=== PATIENT | female | born 1930 | race Caucasian/White ===

== ENCOUNTER 2017-08-31 12:39 | Inpatient (IN) | payer OTHER, BC ==
--- NOTE | 2017-08-31 13:09 | PDOC ---
Attending Attestation - Resident Resident Name: Benny Merino - ED Attending Attestation I have performed the following: I have examined & evaluated the patient, The case was reviewed & discussed with the resident, I agree w/resident's findings & plan, Exceptions are as noted - HPI HPI: 08/31/17 13:09 86y F hx ansity, htn, presents s/[ fall - the patient had a witnessed fall last night - was going to the bathroom, followed by her aide, and fell entering the bathroom, she was unable to get up on he rown and her aide helped her back into bed. [facility] pain. she did bupm her head on the ground when she fell but there was no LOC, vision changes, numbness/ tinglingweakness, , cp, sob, abd pain, back pain, neck pain, dysuria, diahrrea. pt not on any a/c. on exam pt has a shortened externally rotated RLE, +tender mass that is nonecchymotic over the R proximal femur. distal sensation intact, distal pulses intact, distal motor exam intact and symmetric cardiac: rrr pulm: cta head: no focal tenderness, +contusion tamia R eye and R chin. suspect hip fx will obtain ct head, facial bones xray of hip analgesia - Physicial Exam PE: 09/01/17 08:24 see above - Medical Decision Making 08/31/17 14:24 intertroch fx of R hip ct head/spine/facial bones negative for fx will admit for further management ortho consulted Heart Score/ECG Review - ECG Impressions Comment:: 08/31/17 14:01 Twelve-lead EKG was performed and reviewed by me. There is normal sinus rhythm with a normal rate. rate of 64 The axis is normal. The intervals are normal. There is normal R wave progression There are no ST or T wave abnormalities. Impression: Normal twelve-lead EKG
[2017-08-31] MEDS ORDERED: morphine CARPU-JECT 4 MG/1 ML DISP.SYRIN IVPUSH ONE ×3 (13:15→18:22)
[2017-08-31] MEDS ORDERED: MORPHINE SULFATE 10 MG/1 ML *VIAL ONE ×3 (13:17→18:25)
[2017-08-31 13:41] LABS: BASO % 0.9 % (0-2.0); EOS % 0.2 % (0-4.5); HEMATOCRIT 38.1 % (32.4-45.2); HEMOGLOBIN 12.2 GM/dL (10.7-15.3); LYMPH % 16.4 % (8-40); MCH 29.4 pg (25.7-33.7); MEAN CELL VOLUME 91.8 fl (80-96); MEAN PLT VOLUME 8.8 fl (7.5-11.1); MONO % 8.7 % (3.8-10.2); NEUT % 73.8 % (42.8-82.8); PLATELET COUNT 181 K/MM3 (134-434); RBC 4.15 M/mm3 (3.60-5.2); RDW 14.5 % (11.6-15.6); WHITE BLOOD COUNT 10.8 K/mm3 (4.0-10.0)
[2017-08-31 13:57] LABS: INR 1.09 (0.82-1.09); PROTHROMBIN TIME (PATIENT) 12.3 SEC (9.98-11.88)
--- NOTE | 2017-08-31 14:09 | PDOC ---
History of Present Illness - General Chief Complaint: Injury Stated Complaint: FALL Time Seen by Provider: 08/31/17 13:01 History Source: Patient, Family Exam Limitations: No Limitations - History of Present Illness Initial Comments: 08/31/17 14:04 The patient is an 86F with a PMH of depression and HTN who presents to the ER after sustaining a fall. The patient is with her daughter and aide who provide some of the history. The aide says the patient was going to the bathroom with her walker and turned quickly and tripped over the wedge in front of the bathroom and fell on her R side. The patient denies any CP, SOB, lightheadedness , palpitations, nausea, numbness, tingling, weakness, or changes in vision before, during, or after this episode. 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 - Surgical History Appendectomy: Yes - Immunization History Immunization Up to Date: Yes - Suicide/Smoking/Psychosocial Hx Smoking Status: No Smoking History: Never smoked Have you smoked in the past 12 months: No Number of Cigarettes Smoked Daily: 0 Information on smoking cessation initiated: No Hx Alcohol Use: No Drug/Substance Use Hx: No Substance Use Type: None Review of Systems - Review of Systems Able to Perform ROS?: Yes Comments:: 08/31/17 14:08 GENERAL/CONSTITUTIONAL: No fever or chills. No weakness. HEAD, EYES, EARS, NOSE AND THROAT: No change in vision. No ear pain or discharge. No sore throat. CARDIOVASCULAR: No chest pain, palpitations, or lightheadedness. RESPIRATORY: No cough, wheezing, shortness of breath, or hemoptysis. GASTROINTESTINAL: No nausea, vomiting, diarrhea, constipation, or abdominal pain. GENITOURINARY: No dysuria, frequency, hematuria, or change in urination. MUSCULOSKELETAL: Positive for fall, R thigh pain, and pain in facial bones. SKIN: No rash or lesions. NEUROLOGIC: No headache, numbness, tingling, weakness, loss of consciousness, or change in strength/sensation. ENDOCRINE: No increased thirst. No abnormal weight change. HEMATOLOGIC/LYMPHATIC: No anemia, easy bleeding, or history of blood clots. ALLERGIC/IMMUNOLOGIC: No hives or skin allergy. Is the patient limited Divehi proficient: No *Physical Exam - Vital Signs Last Vital Signs Temp Pulse Resp BP Pulse Ox 97.3 F L 67 18 154/50 94 L 08/31/17 12:51 08/31/17 12:51 08/31/17 12:51 08/31/17 12:51 08/31/17 12:51 - Physical Exam Comments: 08/31/17 14:10 GENERAL: Well developed, well nourished. Awake and alert. No acute distress. HEENT: Normocephalic, atraumatic. Bruising present over R periorbital area and R chin. Tender to palpation over R mental area. Hearing grossly normal. Moist mucous membranes. PERRLA, EOMI. No conjunctival pallor. NECK: Supple. Full ROM. No JVD. CARDIOVASCULAR: Regular rate and rhythm. Systolic murmur 3/6. PULMONARY: No evidence of respiratory distress. Lungs clear to auscultation bilaterally. No wheezing, rales or rhonchi. ABDOMINAL: Soft. Non-tender. Non-distended. No rebound or guarding. MUSCULOSKELETAL: Gross deformity of R thigh. EXTREMITIES: No cyanosis. No clubbing. No edema. No calf tenderness. SKIN: Warm and dry. Normal capillary refill. No rashes. No jaundice. NEUROLOGICAL: Alert, awake, appropriate. Cranial nerves 2-12 intact. Normal speech. Gait is normal without ataxia. PSYCHIATRIC: Cooperative. Good eye contact. Appropriate mood and affect. Heart Score/ECG Review #1 ECG reviewed & interpreted by me at: 14:11 General ECG Interpretation: Sinus Rhythm, Normal Rate, Normal Intervals, No acute ischemic changes Compared to previous ECG there are: No significant change 08/31/17 14:12 NSR Rate 64 OH 182 QRS 90 QTc 445 ED Treatment Course - LABORATORY CBC & Chemistry Diagram: 08/31/17 13:26 08/31/17 13:26 - ADDITIONAL ORDERS Additional order review: Laboratory Results 08/31/17 08/31/17 13:26 13:26 PT with INR 12.30 H INR 1.09 PTT (Actin FS) 28.4 08/31/17 13:26 RBC 4.15 MCV 91.8 MCHC 32.0 RDW 14.5 MPV 8.8 Neutrophils % 73.8 Lymphocytes % 16.4 D Monocytes % 8.7 Eosinophils % 0.2 Basophils % 0.9 - RADIOLOGY Radiology Studies Ordered: Category Date Time Status FACIAL BONES CT W/O CONTRAST [CT] Stat CT Scan 08/31/17 13:[address] WITHOUT CONTRAST [CT] Stat CT Scan 08/31/17 13:13 Ordered CHEST PA & LAT [RAD] Stat Radiology 08/31/17 13:15 Ordered FEMUR-RIGHT [RAD] Stat Radiology 08/31/17 13:12 Ordered HIP & PELVIS-RIGHT [RAD] Stat Radiology 08/31/17 13:12 Ordered - Medications Given in the ED: ED Medications Discontinued Medications Generic Name Dose Route Start Last Admin Trade Name Freq PRN Reason Stop Dose Admin Morphine Sulfate 2 mg 08/31/17 13:15 08/31/17 13:37 Morphine Injection - IVPUSH 08/31/17 13:16 2 mg ONCE ONE Administration Medical Decision Making - Medical Decision Making 08/31/17 14:12 The patient is an 86F with a PMH of valvular issues, HTN, and depression who presents after a mechanical fall. I have ordered the appropriate imaging but also labs to r/o organic causes of a fall. A review of the patient's medications reveals she takes trazodone and benzos which can cause the patient to be drowsy and fall. Pending labs and imaging. 08/31/17 15:32 CT Head: Interval right parietal craniotomy for evacuation of previously visualized moderate size right subdural collection/hematoma. 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 Otherwise, no acute intracranial pathology is identified CT Facial bones: IMPRESSION: No gross fracture is identified. Both orbits appear intact. Prelim reading of femur XR indicates intratrochanteric fracture of the R femur. Will call ortho. Cervical CT: IMPRESSION: 1. No evidence of acute fracture or traumatic subluxation in the cervical spine. 2. Mild anterior wedging compression fracture of the T3 vertebral body with no discrete fracture lines is of indeterminant chronicity, new since 05/07/[address] Please correlate clinically. If warranted, MRI or nuclear medicine bone scintigraphy may be obtained. 3. Cervical spondylosis as described above. 08/31/17 16:43 Dr. Wolf accepts admission for med/surg bed. 08/31/17 18:23 The patient requires more pain medication. Diastolic in 50's. Will give 4 morphine with IVF NS bolus. *DC/Admit/Observation/Transfer Diagnosis at time of Disposition: Fracture - Discharge Dispostion Condition at time of disposition: Stable Admit: Yes - Referrals - Patient Instructions - Post Discharge Activity
[2017-08-31 14:15] LABS: ALBUMIN 3.8 g/dl (3.4-5.0); ANION GAP 8 (8-16); BLOOD UREA NITROGEN 19 mg/dL (7-18); CALCIUM 8.8 mg/dL (8.5-10.1); CHLORIDE 105 mmol/L (98-107); CO2 29 mmol/L (21-32); CREATININE 0.6 mg/dL (0.55-1.02); GLUCOSE,RANDOM 96 mg/dL (74-106); POTASSIUM 4.1 mmol/L (3.5-5.1); SGOT/AST 14 U/L (15-37); SGPT/ALT 20 U/L (12-78); SODIUM 142 mmol/L (136-145); TOT PROT 6.3 g/dl (6.4-8.2)
[2017-08-31 14:17] LABS: ALK PHOS 61 U/L (45-117)
--- NOTE | 2017-08-31 17:52 | PN ---
Progress Note (short form) - Note Progress Note: consult received. films reviewed. plan on IM nail placement when medically optimized. will see patient tomorrow and review.
[2017-08-31] MEDS ORDERED: SODIUM CHLORIDE 0.9% 1000 ML INFUS.BAG IV ONE (18:22)
[2017-08-31 18:43] LABS: URINE APPEARANCE CLEAR; URINE BILIRUBIN NEGATIVE (NEGATIVE); URINE BLOOD NEGATIVE (NEGATIVE); URINE COLOR YELLOW; URINE GLUCOSE (UA) NEGATIVE (NEGATIVE); URINE KETONE NEGATIVE (NEGATIVE); URINE LEUK ESTERASE NEGATIVE (NEGATIVE); URINE NITRITE NEGATIVE (NEGATIVE); URINE PROTEIN NEGATIVE (NEGATIVE); URINE UROBILINOGEN NEGATIVE mg/dL (0.2-1.0)
--- NOTE | 2017-08-31 19:22 | HP ---
Admitting History and Physical - Primary Care Physician PCP: Zuri Wolf - Admission History of Present Illness: 86F with a PMH of depression and HTN who presents to the ER after sustaining a fall. The patient is with her daughter and aide who provide some of the history. The aide says the patient was going to the bathroom with her walker and turned quickly and tripped over the wedge in front of the bathroom and fell on her R side. The patient denies any CP, SOB, lightheadedness, palpitations, nausea, numbness, tingling, weakness, or changes in vision before, during, or after this episode. - Past Medical History Cardiovascular: Yes: HTN - Smoking History Smoking history: Never smoked Have you smoked in the past 12 months: No Aproximately how many cigarettes per day: 0 - Alcohol/Substance Use Hx Alcohol Use: No Home Medications - Allergies Allergies/Adverse Reactions: Allergies Allergy/AdvReac Type Severity Reaction Status Date / Time No Known Allergies Allergy Verified 08/31/17 12:57 - Home Medications Home Medications: Ambulatory Orders Bupropion HCl [Wellbutrin -] 100 mg PO DAILY 08/31/17 Escitalopram Oxalate [Lexapro -] 5 mg PO DAILY 08/31/17 Lorazepam 1 mg PO TID 08/31/17 Metoprolol Succinate [Toprol Xl -] 100 mg PO DAILY 08/31/17 hydrALAZINE HCL [Apresoline -] 25 mg PO TID 08/31/17 traZODone HCL [Desyrel -] 50 mg PO HS 08/31/17 Physical Examination Vital Signs: Vital Signs Temperature 97.3 F L 08/31/17 12:51 Pulse Rate 68 08/31/17 19:16 Respiratory Rate 16 08/31/17 19:16 Blood Pressure 123/53 08/31/17 19:16 O2 Sat by Pulse Oximetry (%) 98 08/31/17 19:16 HENT: Yes: Atraumatic Neck: Yes: Supple Cardiovascular: Yes: Regular Rate and Rhythm Respiratory: Yes: CTA Bilaterally Gastrointestinal: Yes: Normal Bowel Sounds Extremities: Yes: Other (R julianna at the thigh level swollen and warm and tender) Neurological: Yes: Alert, Oriented Labs: CBC, BMP 08/31/17 13:26 08/31/17 13:26 Problem List - Problems (1) HTN (hypertension) Assessment/Plan: stable on meds will ge cardiology consult Code(s): I10 - ESSENTIAL (PRIMARY) HYPERTENSION Qualifiers: Hypertension type: essential hypertension Qualified Code(s): I10 - Essential (primary) hypertension (2) Fracture Assessment/Plan: ortho consult prn pain meds dvt ppx Code(s): T14.8XXA - OTHER INJURY OF UNSPECIFIED BODY REGION, INITIAL ENCOUNTER Assessment/Plan Laboratory Tests 08/31/17 08/31/17 08/31/17 13:26 13:26 13:26 WBC 10.8 H RBC 4.15 Hgb 12.2 D Hct 38.1 D MCV 91.8 MCH 29.4 MCHC 32.0 RDW 14.5 Plt Count 181 MPV 8.8 Neutrophils % 73.8 Lymphocytes % 16.4 D Monocytes % 8.7 Eosinophils % 0.2 Basophils % 0.9 PT with INR 12.30 H INR 1.09 PTT (Actin FS) Sodium 142 Potassium 4.1 Chloride 105 Carbon Dioxide 29 Anion Gap 8 BUN 19 H Creatinine 0.6 Creat Clearance w eGFR > 60 Random Glucose 96 Calcium 8.8 Total Bilirubin 1.0 D AST 14 L ALT 20 Alkaline Phosphatase 61 Creatine Kinase 66 Troponin I < 0.02 Total Protein 6.3 L Albumin 3.8 Urine Color Urine Appearance Urine pH Ur Specific [place] Urine Protein Urine Glucose (UA) Urine Ketones Urine Blood Urine Nitrite Urine Bilirubin Urine Urobilinogen Ur Leukocyte Esterase Alcohol, Quantitative Blood Type Antibody Screen 08/31/17 08/31/17 08/31/17 13:26 13:26 13:26 WBC RBC Hgb Hct MCV MCH MCHC RDW Plt Count MPV Neutrophils % Lymphocytes % Monocytes % Eosinophils % Basophils % PT with INR INR PTT (Actin FS) 28.4 Sodium Potassium Chloride Carbon Dioxide Anion Gap BUN Creatinine Creat Clearance w eGFR Random Glucose Calcium Total Bilirubin AST ALT Alkaline Phosphatase Creatine Kinase Troponin I Total Protein Albumin Urine Color Urine Appearance Urine pH Ur Specific [place] Urine Protein Urine Glucose (UA) Urine Ketones Urine Blood Urine Nitrite Urine Bilirubin Urine Urobilinogen Ur Leukocyte Esterase Alcohol, Quantitative < 5.0 Blood Type B POSITIVE Antibody Screen Negative 08/31/17 08/31/17 17:05 18:28 WBC RBC Hgb Hct MCV MCH MCHC RDW Plt Count MPV Neutrophils % Lymphocytes % Monocytes % Eosinophils % Basophils % PT with INR INR PTT (Actin FS) Sodium Potassium Chloride Carbon Dioxide Anion Gap BUN Creatinine Creat Clearance w eGFR Random Glucose Calcium Total Bilirubin AST ALT Alkaline Phosphatase Creatine Kinase Troponin I Total Protein Albumin Urine Color Yellow Urine Appearance Clear Urine pH 6.0 Ur Specific [place] 1.025 Urine Protein Negative Urine Glucose (UA) Negative Urine Ketones Negative Urine Blood Negative Urine Nitrite Negative Urine Bilirubin Negative Urine Urobilinogen Negative Ur Leukocyte Esterase Negative Alcohol, Quantitative Blood Type B POSITIVE Antibody Screen
[2017-08-31] MEDS: HEPARIN NA (PORCINE) 5,000 UNITS/ML 1ML VIAL SQ SCH (22:04)
[2017-08-31] MEDS: MORPHINE SULFATE 10 MG/1 ML *VIAL IVPUSH PRN (22:05)
[2017-08-31 22:34] VITALS: BMI 15.7
[2017-09-01] MEDS: MORPHINE SULFATE 10 MG/1 ML *VIAL IVPUSH PRN ×3 (03:41→19:17)
--- NOTE | 2017-09-01 09:11 | CONSULT ---
Consult Consult Specialty:: orthopedics Reason for Consultation:: Right hip - History of Present Illness History of Present Illness: 86y/o female c/o right hip pain since yesterday. She fell and landed on her right side and has been unable to walk since. Was transported to ER by EMS. Pain is worse with motion of the hip and better with rest. Denies any numbness or tingling. No other associated, aggravating or relieving factors. - History Source History Provided By: Patient, Medical Record - Past Medical History Cardio/Vascular: Yes: HTN - Alcohol/Substance Use Hx Alcohol Use: No - Smoking History Smoking history: Never smoked Have you smoked in the past 12 months: No Aproximately how many cigarettes per day: 0 Home Medications - Allergies Allergies/Adverse Reactions: Allergies Allergy/AdvReac Type Severity Reaction Status Date / Time No Known Allergies Allergy Verified 08/31/17 12:57 - Home Medications Home Medications: Ambulatory Orders Bupropion HCl [Wellbutrin -] 100 mg PO DAILY 08/31/17 Escitalopram Oxalate [Lexapro -] 5 mg PO DAILY 08/31/17 Hydralazine HCl [Apresoline -] 25 mg PO TID 08/31/17 Lorazepam 1 mg PO TID 08/31/17 Metoprolol Succinate [Toprol Xl -] 100 mg PO DAILY 08/31/17 Trazodone HCl [Desyrel -] 50 mg PO HS 08/31/17 Review of Systems - Review of Systems Constitutional: reports: No Symptoms Eyes: reports: No Symptoms HENT: reports: No Symptoms Neck: reports: No Symptoms Cardiovascular: reports: No Symptoms Respiratory: reports: No Symptoms Gastrointestinal: reports: No Symptoms Genitourinary: reports: No Symptoms Breasts: reports: No Symptoms Reported Musculoskeletal: reports: Extremity Pain Integumentary: reports: No Symptoms Neurological: reports: No Symptoms Endocrine: reports: No Symptoms Hematology/Lymphatic: reports: No Symptoms Psychiatric: reports: No Symptoms Physical Exam Vital Signs: Vital Signs Temperature 99.4 F 09/01/17 06:00 Pulse Rate 70 09/01/17 06:00 Respiratory Rate 20 09/01/17 06:00 Blood Pressure 129/60 09/01/17 06:00 O2 Sat by Pulse Oximetry (%) 98 08/31/17 22:39 Constitutional: Yes: Well Nourished, No Distress, Calm HENT: Yes: Normocephalic Musculoskeletal: Yes: Other (Right LE: Mild edema of the RLE. No erythema or ecchymosis. Pain with motion of the hip. Smooth motion of the knee and ankle. Compartments soft. Calf nontender. Negative lizzette's sign. NVID.) Labs: CBC, BMP 08/31/17 13:26 08/31/17 13:26 Imaging - Results X-ray: Report Reviewed, Image Reviewed (Right intertrochanteric fracture) Assessment/Plan #1 Right hip IT fracture -Discussed today's findings and treatment options with the patient. Together we decided to proceed with ORIF. Discussed the procedure with the patient and answered all questions. Will likely proceed with ORIF tonight or tomorrow. -NPO after breakfast today 09/01/17 -SCDs
[2017-09-01] MEDS: HEPARIN NA (PORCINE) 5,000 UNITS/ML 1ML VIAL SQ SCH ×2 (10:42→21:52)
--- NOTE | 2017-09-01 12:28 | CON.CARD ---
Consult Consult Specialty:: Cardiology Referred by:: Dr. Wolf Reason for Consultation:: Cardiac evaluation and for cardiac clearance - History of Present Illness Chief Complaint: Post fall resulting in right hip fracture History of Present Illness: Patient is an 86 year old female of [place] descent with underlying history of depression and hypertension who presents after a fall in the bathroom resulting in right femoral fracture. She is currently awaiting surgery and cardiac clearance was requested. She denies chest pain, shortness of breath or palpitations. She denies paroxysmal nocturnal dyspnea or orthopnea. She denies fever or chills. She denies nausea, vomiting, diarrhea or abdominal pain. She denies headache or lightheadedness. Denies any prior syncope. - History Source History Provided By: Patient, Medical Record Limitations to Obtaining History: No Limitations - Past Medical History Cardio/Vascular: Yes: HTN Psych: Yes: Depression Endocrine: No: Diabetes Mellitus - Alcohol/Substance Use Hx Alcohol Use: No History of Substance Use: reports: None - Smoking History Smoking history: Never smoked Have you smoked in the past 12 months: No Aproximately how many cigarettes per day: 0 Home Medications - Allergies Allergies/Adverse Reactions: Allergies Allergy/AdvReac Type Severity Reaction Status Date / Time No Known Allergies Allergy Verified 08/31/17 12:57 - Home Medications Home Medications: Ambulatory Orders Bupropion HCl [Wellbutrin -] 100 mg PO DAILY 08/31/17 Escitalopram Oxalate [Lexapro -] 5 mg PO DAILY 08/31/17 Lorazepam 1 mg PO TID 08/31/17 Metoprolol Succinate [Toprol Xl -] 100 mg PO DAILY 08/31/17 hydrALAZINE HCL [Apresoline -] 25 mg PO TID 08/31/17 traZODone HCL [Desyrel -] 50 mg PO HS 08/31/17 Family Disease History - Family Disease History Family History: Denies Review of Systems - Review of Systems Constitutional: denies: Chills, Fever Cardiovascular: denies: Chest Pain, Palpitations, Shortness of Breath Respiratory: denies: Cough, Hemoptysis, Orthopnea, PND, SOB, SOB on Exertion Gastrointestinal: denies: Abdominal Pain, Constipation, Diarrhea, Dysphagia, Melena, Nausea, Rectal Bleeding, Vomiting Genitourinary: denies: Dysuria, Hematuria Musculoskeletal: reports: Joint Pain Neurological: denies: Dizziness, Headache, Seizure, Syncope, Unsteady Gait, Weakness Vital Signs: Vital Signs Temperature 99.4 F 09/01/17 06:00 Pulse Rate 70 09/01/17 06:00 Respiratory Rate 20 09/01/17 06:00 Blood Pressure 129/60 09/01/17 06:00 O2 Sat by Pulse Oximetry (%) 98 08/31/17 22:39 Constitutional: Yes: Well Nourished Eyes: Yes: PERRL HENT: Yes: Atraumatic Neck: Yes: Supple Respiratory: Yes: CTA Bilaterally Gastrointestinal: Yes: Normal Bowel Sounds, Soft. No: Tenderness Cardiovascular: Yes: Regular Rate and Rhythm JVD: No Carotid Bruit: No PMI: Non-Displaced Heart Sounds: Yes: S1, S2 Murmur: No: Systolic Murmur, Diastolic Murmur Edema: No - Other Data Labs, Other Data: CBC, BMP 08/31/17 13:26 08/31/17 13:26 INR, PTT INR 1.09 (0.82-1.09) 08/31/17 13:26 Troponin, BNP 08/31/17 08/31/17 13:26 20:20 Troponin I < 0.02 < 0.02 Laboratory Results - last 24 hr 08/31/17 08/31/17 08/31/17 13:26 13:26 13:26 WBC 10.8 H RBC 4.15 Hgb 12.2 D Hct 38.1 D MCV 91.8 MCH 29.4 MCHC 32.0 RDW 14.5 Plt Count 181 MPV 8.8 Neutrophils % 73.8 Lymphocytes % 16.4 D Monocytes % 8.7 Eosinophils % 0.2 Basophils % 0.9 PT with INR 12.30 H INR 1.09 PTT (Actin FS) Sodium 142 Potassium 4.1 Chloride 105 Carbon Dioxide 29 Anion Gap 8 BUN 19 H Creatinine 0.6 Creat Clearance w eGFR > 60 Random Glucose 96 Calcium 8.8 Total Bilirubin 1.0 D AST 14 L ALT 20 Alkaline Phosphatase 61 Creatine Kinase 66 Troponin I < 0.02 Total Protein 6.3 L Albumin 3.8 Urine Color Urine Appearance Urine pH Ur Specific [place] Urine Protein Urine Glucose (UA) Urine Ketones Urine Blood Urine Nitrite Urine Bilirubin Urine Urobilinogen Ur Leukocyte Esterase Alcohol, Quantitative Blood Type Antibody Screen 08/31/17 08/31/17 08/31/17 17:05 18:28 20:20 WBC RBC Hgb Hct MCV MCH MCHC RDW Plt Count MPV Neutrophils % Lymphocytes % Monocytes % Eosinophils % Basophils % PT with INR INR PTT (Actin FS) Sodium Potassium Chloride Carbon Dioxide Anion Gap BUN Creatinine Creat Clearance w eGFR Random Glucose Calcium Total Bilirubin AST ALT Alkaline Phosphatase Creatine Kinase 75 Troponin I < 0.02 Total Protein Albumin Urine Color Yellow Urine Appearance Clear Urine pH 6.0 Ur Specific [place] 1.025 Urine Protein Negative Urine Glucose (UA) Negative Urine Ketones Negative Urine Blood Negative Urine Nitrite Negative Urine Bilirubin Negative Urine Urobilinogen Negative Ur Leukocyte Esterase Negative Alcohol, Quantitative Blood Type B POSITIVE Antibody Screen Normal sinus rhythm with no ST-T abnormalities Echo: Pending Imaging - Results Chest X-ray: Report Reviewed (Cardiomegaly, atelectasis) X-ray: Report Reviewed (Hip Xray right femoral fracture) Cat Scan: Report Reviewed (Cervical CT no fracture) EKG: Report Reviewed Problem List - Problems (1) Right femoral fracture Code(s): S72.91XA - UNSP FRACTURE OF RIGHT FEMUR, INIT FOR CLOS FX (2) Depression Code(s): F32.9 - MAJOR DEPRESSIVE DISORDER, SINGLE EPISODE, UNSPECIFIED (3) HTN (hypertension) Code(s): I10 - ESSENTIAL (PRIMARY) HYPERTENSION Qualifiers: Hypertension type: essential hypertension Qualified Code(s): I10 - Essential (primary) hypertension Assessment/Plan 1. Post fall resulting in right hip fracture, no LOC 2. Hypertension 3. History of depression PLAN: 1. No absolute contraindication in proceeding with hip surgery in view of absence of ischemic symptoms, decompensated congestive heart failure or malignant arrhythmia. Post op cardiac enzymes 2. Continue Metoprolol ER as tolerated. 3. Consider ACEI or ARB instead of Hydralazine. 4. Transthoracic echocardiography to assess LV/RV and valvular function Further plans are to follow Robbi Markham MD
[2017-09-01] MEDS: LOSARTAN POTASSIUM 25 MG TABLET PO SCH (14:04)
--- NOTE | 2017-09-01 15:22 | PN ---
Progress Note, Physician History of Present Illness: comfortable - Current Medication List Current Medications: Active Medications Heparin Sodium (Porcine) (Heparin -) 5,000 unit SQ BID [facility] Last Admin: 09/01/17 10:42 Dose: Not Given Losartan Potassium (Cozaar -) 25 mg PO DAILY [facility] Last Admin: 09/01/17 14:04 Dose: 25 mg Metoprolol Succinate (Toprol Xl -) 50 mg PO DAILY [facility] Last Admin: 09/01/17 14:04 Dose: 50 mg Morphine Sulfate (Morphine Injection -) 2 mg IVPUSH Q4H PRN PRN Reason: PAIN LEVEL 1-5 Last Admin: 09/01/17 13:37 Dose: 2 mg - Objective Vital Signs: Vital Signs Temperature 98.7 F 09/01/17 13:47 Pulse Rate 79 09/01/17 13:47 Respiratory Rate 18 09/01/17 13:47 Blood Pressure 160/51 09/01/17 13:47 O2 Sat by Pulse Oximetry (%) 98 09/01/17 09:00 Constitutional: Yes: No Distress HENT: Yes: Atraumatic Neck: Yes: Supple Cardiovascular: Yes: Regular Rate and Rhythm Respiratory: Yes: CTA Bilaterally Gastrointestinal: Yes: Normal Bowel Sounds Extremities: Yes: WNL Neurological: Yes: Alert, Oriented Labs: CBC, BMP 08/31/17 13:26 08/31/17 13:26 INR, PTT INR 1.09 (0.82-1.09) 08/31/17 13:26 Problem List - Problems (1) HTN (hypertension) Assessment/Plan: stable saw cardiology clearance note Code(s): I10 - ESSENTIAL (PRIMARY) HYPERTENSION Qualifiers: Hypertension type: essential hypertension Qualified Code(s): I10 - Essential (primary) hypertension (2) Fracture Assessment/Plan: for surgery tomorrow Code(s): T14.8XXA - OTHER INJURY OF UNSPECIFIED BODY REGION, INITIAL ENCOUNTER
[2017-09-02] MEDS: MORPHINE SULFATE 10 MG/1 ML *VIAL IVPUSH PRN (03:57)
[2017-09-02 08:26] LABS: INR 1.14 (0.82-1.09); PROTHROMBIN TIME (PATIENT) 12.9 SEC (9.98-11.88)
[2017-09-02 08:31] LABS: BASO % 0.7 % (0-2.0); EOS % 0.5 % (0-4.5); HEMATOCRIT 32.2 % (32.4-45.2); HEMOGLOBIN 10.4 GM/dL (10.7-15.3); LYMPH % 21.3 % (8-40); MCH 29.2 pg (25.7-33.7); MCHC 32.3 g/dl (32.0-36.0); MEAN CELL VOLUME 90.5 fl (80-96); MEAN PLT VOLUME 9.5 fl (7.5-11.1); NEUT % 64.5 % (42.8-82.8); PLATELET COUNT 149 K/MM3 (134-434); RBC 3.56 M/mm3 (3.60-5.2); RDW 14.4 % (11.6-15.6); WHITE BLOOD COUNT 12.3 K/mm3 (4.0-10.0)
[2017-09-02 08:55] LABS: ALBUMIN 3.3 g/dl (3.4-5.0); ALK PHOS 52 U/L (45-117); ANION GAP 6 (8-16); BILIRUBIN,TOTAL 1.5 mg/dL (0.2-1.0); BLOOD UREA NITROGEN 15 mg/dL (7-18); CALCIUM 8.2 mg/dL (8.5-10.1); CHLORIDE 104 mmol/L (98-107); CO2 30 mmol/L (21-32); CREATININE 0.4 mg/dL (0.55-1.02); GLUCOSE,RANDOM 99 mg/dL (74-106); POTASSIUM 3.9 mmol/L (3.5-5.1); SGOT/AST 9 U/L (15-37); SGPT/ALT 13 U/L (12-78); SODIUM 140 mmol/L (136-145); TOT PROT 5.9 g/dl (6.4-8.2)
[2017-09-02] MEDS ORDERED: BUPIVACAINE HCL/PF 0.5% (5MG/ML) 10 ML VIAL ONE (09:24)
[2017-09-02] MEDS ORDERED: MIDAZOLAM HCL 2 MG/2 ML SINGLE DOSE VIAL ONE ×2 (09:27→09:53)
[2017-09-02] MEDS ORDERED: ceFAZolin SODIUM 1 GM VIAL IVPB ONE (09:51)
[2017-09-02] MEDS: LOSARTAN POTASSIUM 25 MG TABLET PO SCH (10:06)
[2017-09-02] MEDS: HEPARIN NA (PORCINE) 5,000 UNITS/ML 1ML VIAL SQ SCH (10:06)
[2017-09-02] MEDS ORDERED: KETOROLAC TROMETHAMINE 30 MG/1 ML VIAL ONE (10:35)
[2017-09-02] MEDS ORDERED: oxyCODONE HCL 5 MG TABLET PO PRN ×2 (10:49→10:59)
[2017-09-02] MEDS ORDERED: PROMETHAZINE HCL 25 MG/1 ML VIAL IVPUSH PRN ×2 (10:49→10:59)
[2017-09-02] MEDS ORDERED: ONDANSETRON 4 MG/2 ML VIAL IVPUSH PRN ×2 (10:49→10:59)
--- NOTE | 2017-09-02 10:57 | EKG ---
Test Reason : Blood Pressure : / mmHG Vent. Rate : 064 BPM Atrial Rate : 064 BPM P-R Int : 182 ms QRS Dur : 090 ms QT Int : 432 ms P-R-T Axes : 071 077 051 degrees QTc Int : 445 ms NORMAL SINUS RHYTHM NORMAL ECG WHEN COMPARED WITH ECG OF 22-JUN-2013 21:00, QUESTIONABLE CHANGE IN QRS AXIS Confirmed by SEAN HENDRICKS MD ([id number]) on 09/02/2017 10:56:59 AM Referred By: Confirmed By:SEAN HENDRICKS MD
[2017-09-02] MEDS ORDERED: LACTATED RINGERS SOLUTION 1,000 ML IV SCH (11:00)
--- NOTE | 2017-09-02 11:13 | OP ---
Operative Note - Note: Operative Date: 09/02/17 Pre-Operative Diagnosis: Right Basicervical hip fracture Operation: Open reduction internal fixation of right hip fracture Implants: Rasheeda short gamma nail Post-Operative Diagnosis: Same as Pre-op Surgeon: John Torres Recovery Assistant: Mikki George Anesthesiologist/ANIMAL LABORATORY HELPER: Austin Yadav Anesthesia: Spinal, MAC Estimated Blood Loss (mls): 50 Fluid Volume Replaced (mls): 400 Operative Report Dictated: Yes
--- NOTE | 2017-09-02 11:15 | SURG ---
Surgery [employer] Crm Developer Note [employer] Crm Developer: Mikki George PA-C Date of Service: 09/02/17 Diagnosis: right basicervical hip fracture Procedure: Open reduction internal fixation of right hip fracture I was present for the entirety of the operative procedure. For further detail, please refer to operative report. Visit type - Case Type Case Type: ED Admission - Emergency Emergency Visit: Yes ED Registration Date: 08/31/17 Care time: The patient presented to the Emergency Department on the above date and was hospitalized for further evaluation of their emergent condition. - New patient This patient is new to me today: Yes Date on this admission: 09/02/17
--- NOTE | 2017-09-02 11:58 | OP ---
DATE OF OPERATION: 09/02/2017 PREOPERATIVE DIAGNOSIS: Right unstable intertrochanteric proximal femur fracture. POSTOPERATIVE DIAGNOSIS: Right unstable intertrochanteric proximal femur fracture. PROCEDURE PERFORMED: Operative fixation of right proximal femur fracture with intramedullary device (Rasheeda Gamma nail, 180 x 10 x 125-degree; 90-mm lag screw; 30-mm distal locking screw). SURGEON: John Torres MD REGULATORY AUDITOR: Mikki George [facility] ANESTHESIA: Spinal. INDICATION: Patient is an 86-year-old female who sustained a fall and unstable right displaced intertrochanteric proximal femur fracture. She is a prior community ambulator. She is indicated for operative fixation. Risks, benefits and alternatives of the surgery were discussed in detail with the patient and family. Informed consent was obtained. They understand risks inherent to the procedure include infection, neurovascular injury, nonunion, malunion, hardware failure, limb length discrepancy, malrotation. The risks of the surgery in general include infection, anesthesia complications, heart attacks, strokes, even . All questions were answered. Informed consent was obtained. DESCRIPTION OF THE PROCEDURE: Patient was brought into the operating room via stretcher and spinal anesthesia was administered by the anesthesiologist. The patient was then transferred to a fracture table. The right lower extremity was placed in flexion and internal rotation and the left lower extremity in flexion and external rotation. All bony prominences were padded. Fluoroscopic C-arm showed excellent reduction of the fracture. The hip was then prepped and draped in the usual sterile fashion and prophylactic IV antibiotics were administered. A timeout was performed. An appropriate incision was made in line with the proximal femur. A guidewire was then inserted under fluoroscopic guidance. A reamer was then inserted with a soft tissue protector. The assembled nail was then inserted into the proximal femur spanning the fracture to appropriate depth. A guide for the lag screw was then inserted through a stab wound in the thigh. A guidewire was then inserted under fluoroscopic guidance. The measurement for the lag screw was then taken and a drill was then passed. The lag screw was then inserted to appropriate depth. A set screw was then inserted and back off a quarter turn after tightening. The distal locking screw guide was then inserted through the jig through a stab wound in the thigh. A drill was then passed and a screw of appropriate length was then inserted. Excellent reduction and hardware placement were noted through the fluoroscopic radiographs. The wounds were then copiously irrigated. The deep fascia was closed with No. 1 Vicryl suture. The deep dermal tissue approximated with 2-0 and 3-0 Vicryl suture. The skin was closed with bismark. A sterile dressing was applied. CHLOE Lynn was necessary throughout the case for proper assistance in reduction of the fracture and placement of the implant. This could not have been done without a skilled surgical garment assembler. Mahi [id number]
--- NOTE | 2017-09-02 12:00 | PN ---
Progress Note, Physician History of Present Illness: s/p surgery - Current Medication List Current Medications: Active Medications Acetaminophen (Tylenol -) 650 mg PO Q6H PRN PRN Reason: FEVER Enoxaparin Sodium (Lovenox -) 40 mg SQ DAILY [facility] Stop: 10/01/17 10:00 Fentanyl (Sublimaze Injection -) 25 mcg IVPUSH [id number] PRN PRN Reason: PAIN-PACU ORDER X 4 DOSES ONLY Lactated Ringer's (Lactated Ringers Solution) 1,000 mls @ 75 mls/hr IV ASDIR [facility] Losartan Potassium (Cozaar -) 25 mg PO DAILY [facility] Metoprolol Succinate (Toprol Xl -) 50 mg PO DAILY [facility] Ondansetron HCl (Zofran Injection) 4 mg IVPUSH Q6H PRN PRN Reason: NAUSEA AND/OR VOMITING Oxycodone HCl (Roxicodone -) 5 mg PO Q4H PRN PRN Reason: PAIN LEVEL 1-5 Oxycodone HCl (Roxicodone -) 10 mg PO Q4H PRN PRN Reason: PAIN LEVEL 6-10 Promethazine HCl (Phenergan Injection -) 12.5 mg IVPUSH Q6H PRN PRN Reason: NAUSEA-FOR RESCUE AFTER 15 MIN - Objective Vital Signs: Vital Signs Temperature 98.4 F 09/02/17 10:46 Pulse Rate 70 09/02/17 11:45 Respiratory Rate 23 09/02/17 11:45 Blood Pressure 110/40 09/02/17 11:45 O2 Sat by Pulse Oximetry (%) 99 09/02/17 11:45 Constitutional: Yes: No Distress HENT: Yes: Other (bruise on face healing) Neck: Yes: Supple Cardiovascular: Yes: Regular Rate and Rhythm Respiratory: Yes: CTA Bilaterally Gastrointestinal: Yes: Normal Bowel Sounds Extremities: Yes: Other (R hip swelling at the surery site dressing in place) Neurological: Yes: Alert, Oriented Labs: CBC, BMP 09/02/17 06:35 09/02/17 06:35 INR, PTT INR 1.14 (0.82-1.09) 09/02/17 06:35 Problem List - Problems (1) HTN (hypertension) Assessment/Plan: stable on meds Code(s): I10 - ESSENTIAL (PRIMARY) HYPERTENSION Qualifiers: Hypertension type: essential hypertension Qualified Code(s): I10 - Essential (primary) hypertension (2) Fracture Assessment/Plan: s/p surgery prn pain meds dvt ppx Code(s): T14.8XXA - OTHER INJURY OF UNSPECIFIED BODY REGION, INITIAL ENCOUNTER
[2017-09-02] MEDS: oxyCODONE HCL 5 MG TABLET PO PRN (15:42)
--- NOTE | 2017-09-02 17:16 | PN ---
Progress Note, Physician History of Present Illness: Post-op discomfort adequately controlled. - Current Medication List Current Medications: Active Medications Acetaminophen (Tylenol -) 650 mg PO Q6H PRN PRN Reason: FEVER Docusate Sodium (Colace -) 100 mg PO BID [facility] Enoxaparin Sodium (Lovenox -) 40 mg SQ DAILY [facility] Stop: 10/01/17 10:00 Fentanyl (Sublimaze Injection -) 25 mcg IVPUSH [id number] PRN PRN Reason: PAIN-PACU ORDER X 4 DOSES ONLY Lactated Ringer's (Lactated Ringers Solution) 1,000 mls @ 75 mls/hr IV ASDIR [facility] Losartan Potassium (Cozaar -) 25 mg PO DAILY [facility] Metoprolol Succinate (Toprol Xl -) 50 mg PO DAILY [facility] Ondansetron HCl (Zofran Injection) 4 mg IVPUSH Q6H PRN PRN Reason: NAUSEA AND/OR VOMITING Oxycodone HCl (Roxicodone -) 5 mg PO Q4H PRN PRN Reason: PAIN LEVEL 1-5 Oxycodone HCl (Roxicodone -) 10 mg PO Q4H PRN PRN Reason: PAIN LEVEL 6-10 Last Admin: 09/02/17 15:42 Dose: 10 mg Promethazine HCl (Phenergan Injection -) 12.5 mg IVPUSH Q6H PRN PRN Reason: NAUSEA-FOR RESCUE AFTER 15 MIN - Objective Vital Signs: Vital Signs Temperature 98.3 F 09/02/17 15:22 Pulse Rate 93 H 09/02/17 15:22 Respiratory Rate 18 09/02/17 16:45 Blood Pressure 117/48 09/02/17 15:22 O2 Sat by Pulse Oximetry (%) 95 09/02/17 16:45 Constitutional: Yes: Calm, Anxious Neck: Yes: Supple Cardiovascular: Yes: Regular Rate and Rhythm, Murmur (2/6 SM) Respiratory: Yes: Regular, Diminished, On Nasal O2 Gastrointestinal: Yes: Normal Bowel Sounds, Soft Edema: No Labs: CBC, BMP 09/02/17 06:35 09/02/17 06:35 INR, PTT INR 1.14 (0.82-1.09) 09/02/17 06:35 Problem List - Problems (1) Status post open reduction with internal fixation of fracture Code(s): Z96.7 - PRESENCE OF OTHER BONE AND TENDON IMPLANTS; Z87.81 - PERSONAL HISTORY OF (HEALED) TRAUMATIC FRACTURE (2) Depression Code(s): F32.9 - MAJOR DEPRESSIVE DISORDER, SINGLE EPISODE, UNSPECIFIED Qualifiers: Depression Type: unspecified Qualified Code(s): F32.9 - Major depressive disorder, single episode, unspecified (3) HTN (hypertension) Code(s): I10 - ESSENTIAL (PRIMARY) HYPERTENSION Qualifiers: Hypertension type: essential hypertension Qualified Code(s): I10 - Essential (primary) hypertension (4) Right femoral fracture Code(s): S72.91XA - UNSP FRACTURE OF RIGHT FEMUR, INIT FOR CLOS FX Qualifiers: Encounter type: subsequent encounter Assessment/Plan 09/01/2017 Mildly dilated LV with normal LV fxn, mod MR, severe AR 1. Post fall resulting in right hip fracture, no LOC post open reduction internal fixation of right hip fracture, CV stable 2. Hypertension 3. History of depression 4. Anemia 5. Diastolic dysfunction with severe AR, mod MR PLAN: 1. Continue Metoprolol ER 50 qd 2. Continue losartan 25 qd 3. DVT prophylaxis and analgesic as needed
[2017-09-02] MEDS ORDERED: morphine CARPU-JECT 2 MG/1 ML DISP.SYRIN IVPUSH PRN (19:11)
[2017-09-02] MEDS ORDERED: ACETAMINOPHEN 1000 MG/100 ML VIAL (NON FORMULARY) IVPB ONE (19:15)
[2017-09-02] MEDS ORDERED: MORPHINE SULFATE 10 MG/1 ML *VIAL IVPUSH PRN (20:34)
[2017-09-02] MEDS: DOCUSATE SODIUM 100 MG CAPSULE (FP) PO SCH (22:05)
[2017-09-03 07:42] LABS: HEMATOCRIT 27.9 % (32.4-45.2); HEMOGLOBIN 9.1 GM/dL (10.7-15.3); MCH 29.9 pg (25.7-33.7); MCHC 32.7 g/dl (32.0-36.0); MEAN CELL VOLUME 91.3 fl (80-96); MEAN PLT VOLUME 9.3 fl (7.5-11.1); PLATELET COUNT 136 K/MM3 (134-434); RBC 3.05 M/mm3 (3.60-5.2); RDW 14.1 % (11.6-15.6); WHITE BLOOD COUNT 10.7 K/mm3 (4.0-10.0)
--- NOTE | 2017-09-03 08:08 | PN ---
Progress Note (short form) - Note Progress Note: Surgery POD #1 Right IMN Patient seen and examined at bedside. Patient states pain is controlled. She denies any CP, SOB, N/V/D , fever or chills. Labs pending PE: A&Ox3, NAD unlabored resp on RA Right hip dressing C/D/I , surrounding tissue with mild ecchymosis, no tracking erythema and mild diffuse edema appropriate to status. Thigh soft and supple, mild tenderness to palpation. B/L LE compartments soft, supple and non-tender, scds in place with +2 pedal pulses and sensation to light touch intact throughout. Able to dorsi and plantar flex B/L although limited at baseline.
--- NOTE | 2017-09-03 08:14 | PN ---
Progress Note, Physician - Current Medication List Current Medications: Active Medications Acetaminophen (Tylenol -) 650 mg PO Q6H PRN PRN Reason: FEVER Docusate Sodium (Colace -) 100 mg PO BID [facility] Last Admin: 09/02/17 22:05 Dose: 100 mg Enoxaparin Sodium (Lovenox -) 40 mg SQ DAILY [facility] Stop: 10/01/17 10:00 Fentanyl (Sublimaze Injection -) 25 mcg IVPUSH [id number] PRN PRN Reason: PAIN-PACU ORDER X 4 DOSES ONLY Lactated Ringer's (Lactated Ringers Solution) 1,000 mls @ 75 mls/hr IV ASDIR [facility] Losartan Potassium (Cozaar -) 25 mg PO DAILY [facility] Metoprolol Succinate (Toprol Xl -) 50 mg PO DAILY [facility] Morphine Sulfate (Morphine Injection -) 2 mg IVPUSH Q4H PRN PRN Reason: PAIN LEVEL 6-10 Last Admin: 09/02/17 22:05 Dose: 2 mg Ondansetron HCl (Zofran Injection) 4 mg IVPUSH Q6H PRN PRN Reason: NAUSEA AND/OR VOMITING Oxycodone HCl (Roxicodone -) 5 mg PO Q4H PRN PRN Reason: PAIN LEVEL 1-5 Oxycodone HCl (Roxicodone -) 10 mg PO Q4H PRN PRN Reason: PAIN LEVEL 6-10 Last Admin: 09/02/17 15:42 Dose: 10 mg Promethazine HCl (Phenergan Injection -) 12.5 mg IVPUSH Q6H PRN PRN Reason: NAUSEA-FOR RESCUE AFTER 15 MIN - Objective Vital Signs: Vital Signs Temperature 99.6 F 09/03/17 05:58 Pulse Rate 91 H 09/03/17 05:58 Respiratory Rate 18 09/03/17 05:58 Blood Pressure 148/50 09/03/17 05:58 O2 Sat by Pulse Oximetry (%) 98 09/02/17 20:27 Constitutional: Yes: Well Nourished, No Distress, Calm Labs: CBC, BMP 09/03/17 07:10 INR, PTT INR 1.14 (0.82-1.09) 09/02/17 06:35 Assessment/Plan doing well s/p right hip ORIF. No anesthetic issues
[2017-09-03 09:00] LABS: ALBUMIN 2.7 g/dl (3.4-5.0); ANION GAP 7 (8-16); BLOOD UREA NITROGEN 23 mg/dL (7-18); CALCIUM 7.8 mg/dL (8.5-10.1); CHLORIDE 104 mmol/L (98-107); CO2 29 mmol/L (21-32); GLUCOSE,RANDOM 92 mg/dL (74-106); POTASSIUM 4.3 mmol/L (3.5-5.1); SODIUM 140 mmol/L (136-145)
[2017-09-03 09:05] LABS: ALK PHOS 49 U/L (45-117); BILIRUBIN,TOTAL 1.5 mg/dL (0.2-1.0); CREATININE 0.5 mg/dL (0.55-1.02); SGOT/AST 10 U/L (15-37); SGPT/ALT 12 U/L (12-78); TOT PROT 5.4 g/dl (6.4-8.2)
[2017-09-03] MEDS: ENOXAPARIN NA (PORCINE) 40 MG/0.4 ML DISP.SYRIN SQ SCH (09:53)
[2017-09-03] MEDS: ACETAMINOPHEN 325 MG TABLET (FP) PO PRN (09:53)
[2017-09-03] MEDS: oxyCODONE HCL 5 MG TABLET PO PRN ×3 (09:53→21:28)
[2017-09-03] MEDS: DOCUSATE SODIUM 100 MG CAPSULE (FP) PO SCH ×2 (09:54→21:28)
[2017-09-03] MEDS ORDERED: LOSARTAN POTASSIUM 25 MG TABLET PO SCH (10:00)
--- NOTE | 2017-09-03 13:34 | PN ---
Progress Note (short form) - Note Progress Note: Pt lying comf in bed. Minimal pain. Last Vital Signs Temp Pulse Resp BP Pulse Ox 99.6 F 96 H 18 142/61 95 09/03/17 09:00 09/03/17 09:00 09/03/17 09:00 09/03/17 09:00 09/03/17 09:00 RLE dressings cdi calves soft NT NVID Abnormal Lab Results 09/03/17 09/03/17 07:10 07:10 WBC 10.7 H RBC 3.05 L Hgb 9.1 L D Hct 27.9 L Anion Gap 7 L BUN 23 H Creatinine 0.5 L Calcium 7.8 L Total Bilirubin 1.5 H AST 10 L Total Protein 5.4 L Albumin 2.7 L a/p POD 1 R hip im nail -pain control -dvt proph -oob/rehab -wbat -f/u am cbc
[2017-09-03] MEDS ORDERED: SODIUM CHLORIDE 250 ML IV ONE (14:50)
[2017-09-03] MEDS: LACTATED RINGERS SOLUTION 1,000 ML IV SCH (15:24)
--- NOTE | 2017-09-03 17:59 | PN ---
Progress Note, Physician History of Present Illness: doing well pod 1 - Current Medication List Current Medications: Active Medications Acetaminophen (Tylenol -) 650 mg PO Q6H PRN PRN Reason: FEVER Last Admin: 09/03/17 09:53 Dose: 650 mg Docusate Sodium (Colace -) 100 mg PO BID [facility] [place] Last Admin: 09/03/17 09:54 Dose: 100 mg Enoxaparin Sodium (Lovenox -) 40 mg SQ DAILY [facility] Stop: 10/01/17 10:00 Last Admin: 09/03/17 09:53 Dose: 40 mg Fentanyl (Sublimaze Injection -) 25 mcg IVPUSH [id number] PRN PRN Reason: PAIN-PACU ORDER X 4 DOSES ONLY Lactated Ringer's (Lactated Ringers Solution) 1,000 mls @ 75 mls/hr IV ASDIR [facility] [place] Last Admin: 09/03/17 15:24 Dose: Not Given Metoprolol Succinate (Toprol Xl -) 50 mg PO DAILY [facility] [place] Last Admin: 09/03/17 09:54 Dose: 50 mg Morphine Sulfate (Morphine Injection -) 2 mg IVPUSH Q4H PRN PRN Reason: PAIN LEVEL 6-10 Last Admin: 09/02/17 22:05 Dose: 2 mg Ondansetron HCl (Zofran Injection) 4 mg IVPUSH Q6H PRN PRN Reason: NAUSEA AND/OR VOMITING Oxycodone HCl (Roxicodone -) 5 mg PO Q4H PRN PRN Reason: PAIN LEVEL 1-5 Last Admin: 09/03/17 14:34 Dose: 5 mg Oxycodone HCl (Roxicodone -) 10 mg PO Q4H PRN PRN Reason: PAIN LEVEL 6-10 Last Admin: 09/02/17 15:42 Dose: 10 mg Promethazine HCl (Phenergan Injection -) 12.5 mg IVPUSH Q6H PRN PRN Reason: NAUSEA-FOR RESCUE AFTER 15 MIN - Objective Vital Signs: Vital Signs Temperature 98.1 F 09/03/17 14:00 Pulse Rate 75 09/03/17 16:06 Respiratory Rate 18 09/03/17 16:06 Blood Pressure 120/41 09/03/17 16:06 O2 Sat by Pulse Oximetry (%) 95 09/03/17 09:00 Constitutional: Yes: No Distress HENT: Yes: Atraumatic Neck: Yes: Supple Cardiovascular: Yes: Regular Rate and Rhythm Respiratory: Yes: CTA Bilaterally Gastrointestinal: Yes: Normal Bowel Sounds Extremities: Yes: Other (R julianna at the place of surgery is mild swelling . tender ) Neurological: Yes: Alert, Oriented Labs: CBC, BMP 09/03/17 07:10 09/03/17 07:10 INR, PTT INR 1.14 (0.82-1.09) 09/02/17 06:35 Problem List - Problems (1) HTN (hypertension) Assessment/Plan: bp has been low was given fluid bolus dc losartan Code(s): I10 - ESSENTIAL (PRIMARY) HYPERTENSION Qualifiers: Hypertension type: essential hypertension Qualified Code(s): I10 - Essential (primary) hypertension (2) Fracture Assessment/Plan: for rehab prn pain meds dvt ppx Code(s): T14.8XXA - OTHER INJURY OF UNSPECIFIED BODY REGION, INITIAL ENCOUNTER (3) Anemia Assessment/Plan: post surgical bleeding vs dilutional will follow cbc Code(s): D64.9 - ANEMIA, UNSPECIFIED (4) Status post open reduction with internal fixation of fracture Code(s): Z96.7 - PRESENCE OF OTHER BONE AND TENDON IMPLANTS; Z87.81 - PERSONAL HISTORY OF (HEALED) TRAUMATIC FRACTURE
[2017-09-04] MEDS: ENOXAPARIN NA (PORCINE) 40 MG/0.4 ML DISP.SYRIN SQ SCH ×2 (09:10→12:24)
[2017-09-04] MEDS: ACETAMINOPHEN 325 MG TABLET (FP) PO PRN ×2 (09:11→15:26)
[2017-09-04] MEDS: oxyCODONE HCL 5 MG TABLET PO PRN ×2 (09:11→22:57)
[2017-09-04] MEDS: DOCUSATE SODIUM 100 MG CAPSULE (FP) PO SCH ×2 (09:12→21:43)
[2017-09-04 10:18] LABS: HEMATOCRIT 24.9 % (32.4-45.2); HEMOGLOBIN 8.1 GM/dL (10.7-15.3); MCH 29.8 pg (25.7-33.7); MCHC 32.6 g/dl (32.0-36.0); MEAN CELL VOLUME 91.6 fl (80-96); MEAN PLT VOLUME 9.2 fl (7.5-11.1); PLATELET COUNT 175 K/MM3 (134-434); RBC 2.72 M/mm3 (3.60-5.2); RDW 14.1 % (11.6-15.6); WHITE BLOOD COUNT 10.1 K/mm3 (4.0-10.0)
[2017-09-04 10:55] LABS: ALBUMIN 2.6 g/dl (3.4-5.0); ANION GAP 6 (8-16); BILIRUBIN,TOTAL 1.2 mg/dL (0.2-1.0); BLOOD UREA NITROGEN 22 mg/dL (7-18); CHLORIDE 104 mmol/L (98-107); CO2 29 mmol/L (21-32); CREATININE 0.5 mg/dL (0.55-1.02); GLUCOSE,RANDOM 147 mg/dL (74-106); POTASSIUM 4.3 mmol/L (3.5-5.1); SGOT/AST 13 U/L (15-37); SGPT/ALT 13 U/L (12-78); SODIUM 139 mmol/L (136-145)
[2017-09-04 10:56] LABS: ALK PHOS 51 U/L (45-117); TOT PROT 5.4 g/dl (6.4-8.2)
[2017-09-04] MEDS: ESCITALOPRAM OXALATE 10 MG TABLET (FP) PO SCH (13:23)
[2017-09-04] MEDS: LACTATED RINGERS SOLUTION 1,000 ML IV SCH (13:24)
--- NOTE | 2017-09-04 14:33 | PN ---
Progress Note, Physician History of Present Illness: doing well pod 1 - Current Medication List Current Medications: Active Medications Acetaminophen (Tylenol -) 650 mg PO Q6H PRN PRN Reason: FEVER Last Admin: 09/04/17 09:11 Dose: 650 mg Bupropion HCl (Wellbutrin -) 100 mg PO DAILY [facility] Docusate Sodium (Colace -) 100 mg PO BID [facility] Last Admin: 09/04/17 09:12 Dose: 100 mg Enoxaparin Sodium (Lovenox -) 40 mg SQ DAILY [facility] Stop: 10/01/17 10:00 Last Admin: 09/04/17 12:24 Dose: 40 mg Escitalopram Oxalate (Lexapro -) 5 mg PO DAILY [facility] Last Admin: 09/04/17 13:23 Dose: 5 mg Fentanyl (Sublimaze Injection -) 25 mcg IVPUSH [id number] PRN PRN Reason: PAIN-PACU ORDER X 4 DOSES ONLY Metoprolol Succinate (Toprol Xl -) 50 mg PO DAILY [facility] Last Admin: 09/04/17 09:12 Dose: 50 mg Morphine Sulfate (Morphine Injection -) 2 mg IVPUSH Q4H PRN PRN Reason: PAIN LEVEL 6-10 Last Admin: 09/02/17 22:05 Dose: 2 mg Ondansetron HCl (Zofran Injection) 4 mg IVPUSH Q6H PRN PRN Reason: NAUSEA AND/OR VOMITING Oxycodone HCl (Roxicodone -) 5 mg PO Q4H PRN PRN Reason: PAIN LEVEL 1-5 Last Admin: 09/04/17 09:11 Dose: 5 mg Oxycodone HCl (Roxicodone -) 10 mg PO Q4H PRN PRN Reason: PAIN LEVEL 6-10 Last Admin: 09/02/17 15:42 Dose: 10 mg Promethazine HCl (Phenergan Injection -) 12.5 mg IVPUSH Q6H PRN PRN Reason: NAUSEA-FOR RESCUE AFTER 15 MIN Trazodone HCl (Desyrel -) 50 mg PO [facility] - Objective Vital Signs: Vital Signs Temperature 100 F H 09/04/17 08:50 Pulse Rate 93 H 09/04/17 08:50 Respiratory Rate 20 09/04/17 08:50 Blood Pressure 143/53 09/04/17 08:50 O2 Sat by Pulse Oximetry (%) 96 09/04/17 09:00 Constitutional: Yes: No Distress HENT: Yes: Atraumatic Neck: Yes: Supple Cardiovascular: Yes: Regular Rate and Rhythm Respiratory: Yes: CTA Bilaterally Gastrointestinal: Yes: Normal Bowel Sounds Extremities: Yes: WNL Neurological: Yes: Alert, Oriented Labs: CBC, BMP 09/04/17 09:48 09/04/17 09:48 INR, PTT INR 1.14 (0.82-1.09) 09/02/17 06:35 Problem List - Problems (1) HTN (hypertension) Assessment/Plan: bp stable dc ivf hold losartan Code(s): I10 - ESSENTIAL (PRIMARY) HYPERTENSION Qualifiers: Hypertension type: essential hypertension Qualified Code(s): I10 - Essential (primary) hypertension (2) Fracture Assessment/Plan: for rehab prn pain meds dvt ppx Code(s): T14.8XXA - OTHER INJURY OF UNSPECIFIED BODY REGION, INITIAL ENCOUNTER (3) Anemia Assessment/Plan: post surgical bleeding vs dilutional will follow cbc Code(s): D64.9 - ANEMIA, UNSPECIFIED (4) Status post open reduction with internal fixation of fracture Code(s): Z96.7 - PRESENCE OF OTHER BONE AND TENDON IMPLANTS; Z87.81 - PERSONAL HISTORY OF (HEALED) TRAUMATIC FRACTURE
[2017-09-04] MEDS: buPROPion HCL 100 MG TABLET PO SCH (14:59)
[2017-09-04] MEDS: traZODone HCL 50 MG TABLET (FP) PO SCH (21:43)
[2017-09-05] MEDS: oxyCODONE HCL 5 MG TABLET PO PRN ×2 (07:42→16:07)
[2017-09-05 08:10] LABS: HEMATOCRIT 25.2 % (32.4-45.2); HEMOGLOBIN 8.1 GM/dL (10.7-15.3); MCH 29.5 pg (25.7-33.7); MCHC 32.4 g/dl (32.0-36.0); MEAN CELL VOLUME 91.1 fl (80-96); MEAN PLT VOLUME 9.1 fl (7.5-11.1); PLATELET COUNT 213 K/MM3 (134-434); RBC 2.76 M/mm3 (3.60-5.2); RDW 14.3 % (11.6-15.6); WHITE BLOOD COUNT 7.7 K/mm3 (4.0-10.0)
[2017-09-05 08:43] LABS: CHLORIDE 103 mmol/L (98-107); POTASSIUM 4.4 mmol/L (3.5-5.1); SODIUM 139 mmol/L (136-145)
[2017-09-05 08:51] LABS: ALBUMIN 2.7 g/dl (3.4-5.0); ALK PHOS 58 U/L (45-117); ANION GAP 6 (8-16); BLOOD UREA NITROGEN 17 mg/dL (7-18); CALCIUM 8.3 mg/dL (8.5-10.1); CO2 30 mmol/L (21-32); CREATININE 0.4 mg/dL (0.55-1.02); GLUCOSE,RANDOM 89 mg/dL (74-106); SGOT/AST 22 U/L (15-37); SGPT/ALT 24 U/L (12-78); TOT PROT 5.4 g/dl (6.4-8.2)
[2017-09-05] MEDS ORDERED: PT OWN MED DRAWER 7, Y5N ONE (09:45)
[2017-09-05] MEDS: DOCUSATE SODIUM 100 MG CAPSULE (FP) PO SCH ×2 (09:48→22:42)
[2017-09-05] MEDS: ESCITALOPRAM OXALATE 10 MG TABLET (FP) PO SCH (09:48)
[2017-09-05] MEDS: ENOXAPARIN NA (PORCINE) 40 MG/0.4 ML DISP.SYRIN SQ SCH (09:49)
[2017-09-05] MEDS: buPROPion HCL 100 MG TABLET PO SCH (09:49)
--- NOTE | 2017-09-05 12:24 | PN ---
Progress Note (short form) - Note Progress Note: patient comfortable sitting in chair, eating AVSS wound dressing c/d/i NVID H/H: 8.1/25.2, stable from yesterday calves soft pulses 2+ POD3 -oob/pt/wbat -lovenox for dvt prophylaxix for 4 weeks post op -f/u 2-3 wks -ok for rehab transfer from my standpoint
--- NOTE | 2017-09-05 12:57 | PN ---
Progress Note, Physician History of Present Illness: doing well - Current Medication List Current Medications: Active Medications Acetaminophen (Tylenol -) 650 mg PO Q6H PRN PRN Reason: FEVER Last Admin: 09/04/17 15:26 Dose: 650 mg Bupropion HCl (Wellbutrin -) 100 mg PO DAILY [facility] Last Admin: 09/05/17 09:49 Dose: 100 mg Docusate Sodium (Colace -) 100 mg PO BID [facility] Last Admin: 09/05/17 09:48 Dose: 100 mg Enoxaparin Sodium (Lovenox -) 40 mg SQ DAILY [facility] Stop: 10/01/17 10:00 Last Admin: 09/05/17 09:49 Dose: 40 mg Escitalopram Oxalate (Lexapro -) 5 mg PO DAILY [facility] Last Admin: 09/05/17 09:48 Dose: 5 mg Fentanyl (Sublimaze Injection -) 25 mcg IVPUSH [id number] PRN PRN Reason: PAIN-PACU ORDER X 4 DOSES ONLY Metoprolol Succinate (Toprol Xl -) 50 mg PO DAILY [facility] Last Admin: 09/05/17 09:48 Dose: 50 mg Morphine Sulfate (Morphine Injection -) 2 mg IVPUSH Q4H PRN PRN Reason: PAIN LEVEL 6-10 Last Admin: 09/02/17 22:05 Dose: 2 mg Ondansetron HCl (Zofran Injection) 4 mg IVPUSH Q6H PRN PRN Reason: NAUSEA AND/OR VOMITING Oxycodone HCl (Roxicodone -) 5 mg PO Q4H PRN PRN Reason: PAIN LEVEL 1-5 Last Admin: 09/04/17 22:57 Dose: 5 mg Oxycodone HCl (Roxicodone -) 10 mg PO Q4H PRN PRN Reason: PAIN LEVEL 6-10 Last Admin: 09/05/17 07:42 Dose: 10 mg Promethazine HCl (Phenergan Injection -) 12.5 mg IVPUSH Q6H PRN PRN Reason: NAUSEA-FOR RESCUE AFTER 15 MIN Trazodone HCl (Desyrel -) 50 mg PO [facility] Last Admin: 09/04/17 21:43 Dose: 50 mg - Objective Vital Signs: Vital Signs Temperature 98.6 F 09/05/17 12:24 Pulse Rate 82 09/05/17 12:24 Respiratory Rate 18 09/05/17 12:24 Blood Pressure 140/54 09/05/17 12:24 O2 Sat by Pulse Oximetry (%) 95 09/04/17 21:00 Constitutional: Yes: No Distress HENT: Yes: Other (bruise on face and around eyes healing) Respiratory: Yes: CTA Bilaterally Gastrointestinal: Yes: Normal Bowel Sounds Extremities: Yes: Other (R hip surgery site in dressing mild swelling of surrounding tissue) Edema: RLE: Trace Neurological: Yes: Alert, Oriented Labs: CBC, BMP 09/05/17 06:55 09/05/17 06:55 INR, PTT INR 1.14 (0.82-1.09) 09/02/17 06:35 Problem List - Problems (1) HTN (hypertension) Assessment/Plan: bp stable dc ivf hold losartan Code(s): I10 - ESSENTIAL (PRIMARY) HYPERTENSION Qualifiers: Hypertension type: essential hypertension Qualified Code(s): I10 - Essential (primary) hypertension (2) Fracture Assessment/Plan: for rehab prn pain meds dvt ppx Code(s): T14.8XXA - OTHER INJURY OF UNSPECIFIED BODY REGION, INITIAL ENCOUNTER (3) Anemia Assessment/Plan: post surgical bleeding vs dilutional will transfuse 2uprbc d/w son Code(s): D64.9 - ANEMIA, UNSPECIFIED (4) Status post open reduction with internal fixation of fracture Code(s): Z96.7 - PRESENCE OF OTHER BONE AND TENDON IMPLANTS; Z87.81 - PERSONAL HISTORY OF (HEALED) TRAUMATIC FRACTURE Assessment/Plan d/w dr KRISHNA lomeli , he said pt do bleed during hipsurgery, it must be stopped now as h/h same for 2 days, ok to keep her on lovenox d/w pt son , agree on giving 2 uprbc and keeping her for weekend
[2017-09-05] MEDS: traZODone HCL 50 MG TABLET (FP) PO SCH (22:42)
[2017-09-06] MEDS ORDERED: PT OWN MED DRAWER 7, Y5N ONE ×2 (06:47→09:38)
[2017-09-06 07:50] LABS: BASO % 0.5 % (0-2.0); EOS % 1.2 % (0-4.5); HEMATOCRIT 30.7 % (32.4-45.2); HEMOGLOBIN 10.5 GM/dL (10.7-15.3); LYMPH % 15.7 % (8-40); MEAN CELL VOLUME 88.4 fl (80-96); MEAN PLT VOLUME 8.8 fl (7.5-11.1); MONO % 11.7 % (3.8-10.2); NEUT % 70.9 % (42.8-82.8); PLATELET COUNT 237 K/MM3 (134-434); RBC 3.48 M/mm3 (3.60-5.2); RDW 14.4 % (11.6-15.6); WHITE BLOOD COUNT 10.3 K/mm3 (4.0-10.0)
[2017-09-06 08:06] LABS: ALBUMIN 2.8 g/dl (3.4-5.0); ANION GAP 6 (8-16); BLOOD UREA NITROGEN 22 mg/dL (7-18); CALCIUM 8.2 mg/dL (8.5-10.1); CHLORIDE 104 mmol/L (98-107); CO2 29 mmol/L (21-32); GLUCOSE,RANDOM 92 mg/dL (74-106); POTASSIUM 4.6 mmol/L (3.5-5.1); SODIUM 139 mmol/L (136-145)
[2017-09-06 08:10] LABS: ALK PHOS 67 U/L (45-117); BILIRUBIN,TOTAL 1.5 mg/dL (0.2-1.0); CREATININE 0.4 mg/dL (0.55-1.02); SGOT/AST 24 U/L (15-37); SGPT/ALT 26 U/L (12-78); TOT PROT 5.7 g/dl (6.4-8.2)
[2017-09-06] MEDS: buPROPion HCL 100 MG TABLET PO SCH (09:43)
[2017-09-06] MEDS: DOCUSATE SODIUM 100 MG CAPSULE (FP) PO SCH ×2 (09:43→21:38)
[2017-09-06] MEDS: ACETAMINOPHEN 325 MG TABLET (FP) PO PRN (09:44)
[2017-09-06] MEDS: ESCITALOPRAM OXALATE 10 MG TABLET (FP) PO SCH (09:44)
[2017-09-06] MEDS: ENOXAPARIN NA (PORCINE) 40 MG/0.4 ML DISP.SYRIN SQ SCH (09:45)
[2017-09-06] MEDS ORDERED: BISACODYL 10 MG SUPP.RECT RC ONE (14:15)
--- NOTE | 2017-09-06 16:26 | DS ---
Physical Examination Vital Signs: Vital Signs Temperature 97.7 F 09/06/17 15:10 Pulse Rate 77 09/06/17 15:10 Respiratory Rate 18 09/06/17 15:10 Blood Pressure 133/56 09/06/17 15:10 O2 Sat by Pulse Oximetry (%) 96 09/06/17 09:00 Labs: CBC, BMP 09/06/17 07:00 09/06/17 07:00 Discharge Summary Reason For Visit: FRACTURE OF BONE Current Active Problems Anemia (Acute) Depression (Acute) Fracture (Acute) HTN (hypertension) (Acute) Right femoral fracture (Acute) Status post open reduction with internal fixation of fracture (Acute) Condition: Stable - Instructions Diet, Activity, Other Instructions: Post op instructions for Dr. KELLER 1) Eat light foods that are easy to digest. If you have any problems with nausea and vomiting lie down and rest. If it continues, call your surgeon. 2) Call your surgeon AT ONCE if you have problems with: a. Bleeding b. Urinating c. Excessive pain d. If you develop problems with: 1. Numbness 2. Increasing pain in the fingers or toes of the involved extremity 3. Excessive drainage If any problems occur, call you physician first. If you cannot reach him/her, call the Ambulatory Surgery Unit at or the Emergency Room at [phone]. (A nurse from our unit will call you after the surgery to determine your progress.) Physician Appointment: Follow up with Dr. KELLER in [] 7Days [] 10 Days [X] 2 Weeks [place] or [place] Please Call to confirm you appointment Special Instruction: Diet: Regular Medication: CONTINUE LOVENOX 40mg Daily x 4 weeks to prevent blood clots Tylenol or pain medication at perscribed by your doctor Wound Care: May take off dressing after [X] 3 Days bismark removed in 10-14 days Other: [X] Full weight bearing with walker Activity: Use walker Minimize excessive walking/ standing Other Instructions: Ice pack to operative site for 20 minutes every hour as needed HOLD BP MEDS AT 100/60 follow up cbc daily Referrals: Chloé Sherwood [Primary Care Provider] - - Home Medications Comprehensive Discharge Medication List: Ambulatory Orders Bupropion HCl [Wellbutrin -] 100 mg PO DAILY 08/31/17 Escitalopram Oxalate [Lexapro -] 5 mg PO DAILY 08/31/17 Lorazepam 1 mg PO TID 08/31/17 hydrALAZINE HCL [Apresoline -] 25 mg PO TID 08/31/17 traZODone HCL [Desyrel -] 50 mg PO HS 08/31/17 Docusate Sodium [Colace -] 100 mg PO BID capsule 09/03/17 Heparin - 5,000 unit SQ BID vial 09/03/17 Metoprolol Succinate [Toprol XL -] 50 mg PO DAILY tab.sr.24h 09/03/17 oxyCODONE HCL [Roxicodone -] 5 mg PO Q4H PRN #20 tablet MDD 3 09/03/17
--- NOTE | 2017-09-06 16:26 | PN ---
Progress Note, Physician History of Present Illness: doing well - Current Medication List Current Medications: Active Medications Acetaminophen (Tylenol -) 650 mg PO Q6H PRN PRN Reason: FEVER Last Admin: 09/06/17 09:44 Dose: 650 mg Bupropion HCl (Wellbutrin -) 100 mg PO DAILY [facility] Last Admin: 09/06/17 09:43 Dose: 100 mg Docusate Sodium (Colace -) 100 mg PO BID [facility] Last Admin: 09/06/17 09:43 Dose: 100 mg Enoxaparin Sodium (Lovenox -) 40 mg SQ DAILY [facility] Stop: 10/01/17 10:00 Last Admin: 09/06/17 09:45 Dose: 40 mg Escitalopram Oxalate (Lexapro -) 5 mg PO DAILY [facility] Last Admin: 09/06/17 09:44 Dose: 5 mg Fentanyl (Sublimaze Injection -) 25 mcg IVPUSH [id number] PRN PRN Reason: PAIN-PACU ORDER X 4 DOSES ONLY Metoprolol Succinate (Toprol Xl -) 50 mg PO DAILY [facility] Last Admin: 09/06/17 09:43 Dose: 50 mg Morphine Sulfate (Morphine Injection -) 2 mg IVPUSH Q4H PRN PRN Reason: PAIN LEVEL 6-10 Last Admin: 09/02/17 22:05 Dose: 2 mg Ondansetron HCl (Zofran Injection) 4 mg IVPUSH Q6H PRN PRN Reason: NAUSEA AND/OR VOMITING Oxycodone HCl (Roxicodone -) 5 mg PO Q4H PRN PRN Reason: PAIN LEVEL 1-5 Last Admin: 09/04/17 22:57 Dose: 5 mg Oxycodone HCl (Roxicodone -) 10 mg PO Q4H PRN PRN Reason: PAIN LEVEL 6-10 Last Admin: 09/05/17 16:07 Dose: 10 mg Promethazine HCl (Phenergan Injection -) 12.5 mg IVPUSH Q6H PRN PRN Reason: NAUSEA-FOR RESCUE AFTER 15 MIN Trazodone HCl (Desyrel -) [address] [facility] Last Admin: 09/05/17 22:42 Dose: 50 mg - Objective Vital Signs: Vital Signs Temperature 97.7 F 09/06/17 15:10 Pulse Rate 77 09/06/17 15:10 Respiratory Rate 18 09/06/17 15:10 Blood Pressure 133/56 09/06/17 15:10 O2 Sat by Pulse Oximetry (%) 96 09/06/17 09:00 Constitutional: Yes: No Distress HENT: Yes: Other (bruises on face healing well) Cardiovascular: Yes: Regular Rate and Rhythm Respiratory: Yes: CTA Bilaterally Gastrointestinal: Yes: Normal Bowel Sounds Extremities: Yes: Other (surgery site R hip covered ith dressing area around mild swelling) Edema: RLE: Trace Peripheral Pulses WNL: Yes Neurological: Yes: Alert, Oriented Labs: CBC, BMP 09/06/17 07:00 09/06/17 07:00 INR, PTT INR 1.14 (0.82-1.09) 09/02/17 06:35 Problem List - Problems (1) HTN (hypertension) Assessment/Plan: bp stable Code(s): I10 - ESSENTIAL (PRIMARY) HYPERTENSION Qualifiers: Hypertension type: essential hypertension Qualified Code(s): I10 - Essential (primary) hypertension (2) Fracture Assessment/Plan: for rehab prn pain meds dvt ppx Code(s): T14.8XXA - OTHER INJURY OF UNSPECIFIED BODY REGION, INITIAL ENCOUNTER (3) Anemia Assessment/Plan: [id number] h/h stable Code(s): D64.9 - ANEMIA, UNSPECIFIED (4) Status post open reduction with internal fixation of fracture Code(s): Z96.7 - PRESENCE OF OTHER BONE AND TENDON IMPLANTS; Z87.81 - PERSONAL HISTORY OF (HEALED) TRAUMATIC FRACTURE Assessment/Plan dc to snf in am
[2017-09-06] MEDS: oxyCODONE HCL 5 MG TABLET PO PRN (21:38)
[2017-09-06] MEDS: traZODone HCL 50 MG TABLET (FP) PO SCH (21:38)
[2017-09-07 08:02] LABS: BASO % 0.8 % (0-2.0); EOS % 1.6 % (0-4.5); HEMATOCRIT 32.2 % (32.4-45.2); HEMOGLOBIN 10.3 GM/dL (10.7-15.3); MCH 28.9 pg (25.7-33.7); MCHC 31.8 g/dl (32.0-36.0); MEAN CELL VOLUME 90.7 fl (80-96); MEAN PLT VOLUME 8.5 fl (7.5-11.1); MONO % 12.5 % (3.8-10.2); NEUT % 68.1 % (42.8-82.8); PLATELET COUNT 280 K/MM3 (134-434); RBC 3.55 M/mm3 (3.60-5.2); RDW 14.7 % (11.6-15.6); WHITE BLOOD COUNT 9.3 K/mm3 (4.0-10.0)
[2017-09-07 08:46] LABS: ALBUMIN 2.6 g/dl (3.4-5.0); ANION GAP 4 (8-16); BLOOD UREA NITROGEN 25 mg/dL (7-18); CALCIUM 9.4 mg/dL (8.5-10.1); CHLORIDE 103 mmol/L (98-107); CO2 35 mmol/L (21-32); GLUCOSE,RANDOM 95 mg/dL (74-106); POTASSIUM 4.6 mmol/L (3.5-5.1); SODIUM 142 mmol/L (136-145)
[2017-09-07 08:50] LABS: ALK PHOS 67 U/L (45-117); CREATININE 0.4 mg/dL (0.55-1.02); SGOT/AST 22 U/L (15-37); SGPT/ALT 29 U/L (12-78); TOT PROT 5.8 g/dl (6.4-8.2)
[2017-09-07 09:06] VITALS: BP 125/42; PULSE 75; TEMP 98.1
[2017-09-07] MEDS ORDERED: PT OWN MED DRAWER 7, Y5N ONE (09:22)
[2017-09-07] MEDS: ENOXAPARIN NA (PORCINE) 40 MG/0.4 ML DISP.SYRIN SQ SCH (09:24)
[2017-09-07] MEDS: DOCUSATE SODIUM 100 MG CAPSULE (FP) PO SCH (09:27)
[2017-09-07] MEDS: buPROPion HCL 100 MG TABLET PO SCH (09:27)
[2017-09-07] MEDS: ESCITALOPRAM OXALATE 10 MG TABLET (FP) PO SCH (09:27)
--- NOTE | 2017-09-07 20:48 | DS ---
Physical Examination Vital Signs: Vital Signs Temperature 98.1 F 09/07/17 09:00 Pulse Rate 75 09/07/17 09:00 Respiratory Rate 20 09/07/17 09:00 Blood Pressure 125/42 09/07/17 09:00 O2 Sat by Pulse Oximetry (%) 97 09/07/17 09:00 Labs: CBC, BMP 09/07/17 07:51 09/07/17 07:51 Discharge Summary Reason For Visit: FRACTURE OF BONE Condition: Stable - Instructions Diet, Activity, Other Instructions: Post op instructions for Dr. KELLER 1) Eat light foods that are easy to digest. If you have any problems with nausea and vomiting lie down and rest. If it continues, call your surgeon. 2) Call your surgeon AT ONCE if you have problems with: a. Bleeding b. Urinating c. Excessive pain d. If you develop problems with: 1. Numbness 2. Increasing pain in the fingers or toes of the involved extremity 3. Excessive drainage If any problems occur, call you physician first. If you cannot reach him/her, call the Ambulatory Surgery Unit at or the Emergency Room at . (A nurse from our unit will call you after the surgery to determine your progress.) Physician Appointment: Follow up with Dr. KELLER in [] 7Days [] 10 Days [X] 2 Weeks [place] or [place] Please Call to confirm you appointment Special Instruction: Diet: Regular Medication: CONTINUE LOVENOX 40mg Daily x 4 weeks to prevent blood clots Tylenol or pain medication at perscribed by your doctor Wound Care: May take off dressing after [X] 3 Days bismark removed in 10-14 days Other: [X] Full weight bearing with walker Activity: Use walker Minimize excessive walking/ standing Other Instructions: Ice pack to operative site for 20 minutes every hour as needed HOLD BP MEDS AT 100/60 follow up cbc daily Referrals: Chloé Sherwood [Primary Care Provider] - Disposition: [facility] - Home Medications Comprehensive Discharge Medication List: Ambulatory Orders Bupropion HCl [Wellbutrin -] 100 mg PO DAILY 08/31/17 Escitalopram Oxalate [Lexapro -] 5 mg PO DAILY 08/31/17 Lorazepam 1 mg PO TID 08/31/17 hydrALAZINE HCL [Apresoline -] 25 mg PO TID 08/31/17 traZODone HCL [Desyrel -] 50 mg PO HS 08/31/17 Docusate Sodium [Colace -] 100 mg PO BID capsule 09/03/17 Heparin - 5,000 unit SQ BID vial 09/03/17 Metoprolol Succinate [Toprol XL -] 50 mg PO DAILY tab.sr.24h 09/03/17 oxyCODONE HCL [Roxicodone -] 5 mg PO Q4H PRN #20 tablet MDD 3 09/03/17
== END 2017-09-07 11:15 | DRG 480 ==
LOC: JER 12:39 → JERBED 16:43 → J6S 20:42
PROVIDERS: ADMIT Internal Medicine; ATTEND Internal Medicine
PROC: 0SS904Z Reposition Right Hip Joint with Internal Fixation Device, Open Approach (ICD-10-PCS; principal; 2017-09-02 09:00)
PROC: 30233N1 Transfusion of Nonautologous Red Blood Cells into Peripheral Vein, Percutaneous Approach (ICD-10-PCS; 2017-09-05)
DX: S72.041A Displaced fracture of base of neck of right femur, initial encounter for closed fracture (principal); I62.03 Nontraumatic chronic subdural hemorrhage; D62 Acute posthemorrhagic anemia; F32.9 Major depressive disorder, single episode, unspecified; I10 Essential (primary) hypertension; W19.XXXA Unspecified fall, initial encounter; Y93.9 Activity, unspecified; Y92.89 Other specified places as the place of occurrence of the external cause; Y99.9 Unspecified external cause status
CPT/HCPCS: 36415; 36430; 70450-TC; 70486-TC; 71045-TC-FY; 72125-TC; 73523-TC-FY; 73552-TC-RT-FY; 76000-TC-FY; 80053; 80307; 81003; 82550; 84484; 85025; 85027; 85610; 85730; 86850; 86900; 86901; 86922; 93005; 93010; 93306-TC; 94760; 97116-GP; 97161-GP; 99285-25; J1644; P9058

== ENCOUNTER 2018-04-10 13:24 | Emergency (ER) | payer OTHER, BC ==
[2018-04-10 13:32] VITALS: BMI 19.1
[2018-04-10] MEDS ORDERED: DIPHTH,PERTUSS(ACELL),TET 0.5 ML DISP.SYRIN IM ONE (13:56)
--- NOTE | 2018-04-10 14:18 | PDOC ---
Attending Attestation - Resident Resident Name: Wesley Seo - ED Attending Attestation I have performed the following: I have examined & evaluated the patient, The case was reviewed & discussed with the resident, I agree w/resident's findings & plan, Exceptions are as noted - HPI HPI: 04/10/18 14:14 87-year-old female with past medical history of subdural hematoma, hypertension , osteoporosis, right hip replacement presents with mechanical fall. Patient was attempting to walk and fell forward and hit the right side of head. No loss of consciousness or headache. Patient sustained a small superficial right forehead laceration. Sustained a small right elbow abrasion but denies any pain. Does not take any anticoagulants. - Physicial Exam PE: 04/10/18 14:16 GENERAL: Awake, alert, and fully oriented, in no acute distress HEAD: Small ~2 cm superficial right forehead laceration. EYES: EOMI, sclera anicteric, conjunctiva clear ENT: Auricles normal inspection, hearing grossly normal, nares patent, Moist mucosa NECK: Normal ROM, supple. No c-spine tenderness. LUNGS: Breath sounds equal, clear to auscultation bilaterally. No wheezes, and no crackles HEART: Regular rate and rhythm, normal S1 and S2, no murmurs, rubs or gallops ABDOMEN: Soft, nontender, No guarding, no rebound. No masses PELVIS: stable with no hip tenderness. EXTREMITIES: Normal range of motion, no edema. No clubbing or cyanosis. No cords, erythema, or tenderness NEUROLOGICAL: Cranial nerves II through XII grossly intact. Normal speech SKIN: Warm, Dry, normal turgor, no rashes or lesions noted. - Medical Decision Making 04/10/18 14:17 Vital Signs Temp Pulse Resp BP Pulse Ox 98.8 F 88 18 130/55 95 04/10/18 13:27 04/10/18 13:27 04/10/18 13:27 04/10/18 13:27 04/10/18 13:35 Imp: + mechanical fall. Otherwise, well-appearing. Update tetanus Head CT Superficial laceration repair amenable to dermabond. If head CT negative, pt can be d/c home with family. 04/10/18 15:42 CT head and c-spine negative. Pt reports feeling better.
--- NOTE | 2018-04-10 15:27 | PDOC ---
History of Present Illness - General Chief Complaint: Injury Stated Complaint: FALL Time Seen by Provider: 04/10/18 13:26 History Source: Patient, Family, Old Records, Primary Care Provider Exam Limitations: No Limitations - History of Present Illness Initial Comments: 87 y/o female presenting to [facility] ER via ambulance from home complaining of bleeding scalp wound after fall from standing height. Pt currently denying pain. States she was walking with her walker and fell over my bum foot forward onto the floor. Pt denies LOC, anterograde amnesia, retrograde amnesia, or nausea/vomiting. Homeaid had just left room, returned a few seconds after and helped the pt up. Aid states the pt has remained at mental baseline since fall. Pt has a h/o subdural hematoma 5 years ago sustained from fall; s/p craniotomy; no residual deficits reported. H/o right hip fracture sustained from fall in 08/2017. Pt lives at home with 24hr home health aid. PCP: Dr. Chloé Sherwood Medical Hx: - Depression - HTN Surgical Hx: - Craniotomy - Open reduction internal fixation of right hip fracture (09/02/2017) Past History - Past Medical History Allergies/Adverse Reactions: Allergies Allergy/AdvReac Type Severity Reaction Status Date / Time No Known Allergies Allergy Verified 04/10/18 13:32 Home Medications: Ambulatory Orders Bupropion HCl [Wellbutrin -] 100 mg PO DAILY 08/31/17 Escitalopram Oxalate [Lexapro -] 5 mg PO DAILY 08/31/17 Lorazepam 1 mg PO TID 08/31/17 hydrALAZINE HCL [Apresoline -] 25 mg PO TID 08/31/17 traZODone HCL [Desyrel -] 50 mg PO HS 08/31/17 Docusate Sodium [Colace -] 100 mg PO BID capsule 09/03/17 Heparin - 5,000 unit SQ BID vial 09/03/17 Metoprolol Succinate [Toprol XL -] 50 mg PO DAILY tab.sr.24h 09/03/17 oxyCODONE HCL [Roxicodone -] 5 mg PO Q4H PRN #20 tablet MDD 3 09/03/17 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.) COPD: No CHF: Yes DVT: No HTN: Yes - Surgical History Appendectomy: Yes - Immunization History Immunization Up to Date: Yes - Suicide/Smoking/Psychosocial Hx Smoking Status: No Smoking History: Never smoked Have you smoked in the past 12 months: No Number of Cigarettes Smoked Daily: 0 Information on smoking cessation initiated: No Hx Alcohol Use: No Drug/Substance Use Hx: No Substance Use Type: None Review of Systems - Review of Systems Able to Perform ROS?: Yes Is the patient limited [place] proficient: No Constitutional: No: Chills, Diaphoresis, Fever Respiratory: No: Shortness of Breath Cardiac (ROS): No: Chest Pain, Irregular Heart Rate, Lightheadedness, Palpitations, Syncope ABD/GI: No: Constipated, Diarrhea, Nausea, Vomiting : No: Burning, Dysuria, Discharge, Frequency, Flank Pain, Hematuria, Incontinence Musculoskeletal: No: Back Pain, Muscle Pain, Muscle Weakness Integumentary: Yes: See HPI, Lesions. No: Bruising Neurological: No: Headache, Numbness, Paresthesia, Seizure, Tingling, Weakness, Dizziness Hematologic/Lymphatic: No: Easy Bleeding, Easy Bruising *Physical Exam - Vital Signs Last Vital Signs Temp Pulse Resp BP Pulse Ox 98.8 F 88 18 130/55 95 04/10/18 13:27 04/10/18 13:27 04/10/18 13:27 04/10/18 13:27 04/10/18 13:35 - Physical Exam Comments: Constitutional: Well-developed, well-nourished female in no acute distress. Found semi-fowlers in hospital bed. Alert and oriented x4. Answered all questions appropriately and completely. Speech was non-labored, non-pressured. Head: Normocephalic. 1cm linear laceration on right forehead with minimal bleeding, no debris. No periorbital ecchymosis or Battles sign. Eyes: PERRL. EOMI. Sclerae white. Conjunctiva moist and not injected. EARS: Hearing grossly intact. No discharge. NOSE: No nasal discharge. THROAT: Oral cavity and pharynx normal. No inflammation, swelling, exudate, or lesions. No intraoral trauma. Neck: Supple, trachea is midline. Neck: Supple, trachea is midline. Pt able to laterally rotate neck to left and right >45 degrees. No subjective C-spine tenderness or bony deformities. No step off. Cardiovascular: Regular rate and regular rhythm. No murmur, rubs, clicks, or gallops. Peripheral pulses: Radial pulses full. Respiratory: Breathing unlabored. Equal chest rise and fall. Clear to auscultation bilaterally. No stridor, no wheezing, no rhonchi. Gastrointestinal: abdomen is soft, non-tender, non-distended. Neuro: Alert and oriented. Moving all four extremities spontaneously. MSK / Skin: Warm and dry. Small skin tear on right lateral elbow without active bleeding. Psych: Affect: appropriate. Mood: jovial. Procedures - Laceration/Wound Repair Right Face Wound Length: to 2.5 cm Wound Explored: clean Wound's Depth, Shape: superficial, linear Irrigated w/ Saline: Yes Wound Debrided: minimal Wound Repaired With: Dermabond Layer Closure: Yes Sterile Dressing Applied: Yes ED Treatment Course - RADIOLOGY Radiology Studies Ordered: Category Date Time Status CERVICAL SPINE CT W/O CONTR [CT] Stat CT Scan 04/10/18 13:[address] WITHOUT CONTRAST [CT] Stat CT Scan 04/10/18 13:55 Completed Medical Decision Making - Medical Decision Making *Reviewed vital signs, nursing notes, and prior visit documentation (if available). 87 y/o female presenting to [facility] ER complaining of laceration to face after likely mechanical fall from standing height. Afebrile. Vitals unremarkable for tachycardia, bradycardia, or hypotension. Low suspicion for secondary cause of fall given HPI and corroboration with home health aide, who is very well versed with pts medical history and baseline. Will obtain head and neck CT given age. Ordered tetanus booster. Facial laceration repaired with dermabond. Clean dressing applied to right elbow. Head and neck CT unremarkable for acute pathology. Ordered scheduled home dose of lorazepam. Discussed imaging and laboratory results with pt, pts daughter, and home hospice aide. Answered all questions. Provided return precautions. Pt expressed verbal understanding and agreement with plan to discharge home with outpatient follow up. *DC/Admit/Observation/Transfer Diagnosis at time of Disposition: Laceration of forehead Qualifiers: Encounter type: initial encounter Qualified Code(s): S01.81XA - Laceration without foreign body of other part of head, initial encounter Fall Qualifiers: Encounter type: initial encounter Qualified Code(s): W19.XXXA - Unspecified fall, initial encounter - Discharge Dispostion Disposition: HOME Condition at time of disposition: Good Decision to Admit order: No - Referrals Referrals: Chloé Sherwood [Non Staff, Medical] - - Patient Instructions Printed Discharge Instructions: DI for Laceration Repair With Dermabond, How to Prevent Falls Additional Instructions: Your imaging results were negative for abnormalities or injuries to your head or neck. I have attached copies of the CT scan reports to this packet. You can take over the counter Tylenol as needed for pain. Take as directed on the package insert. Do not exceed the recommended dosage. Follow up with your primary care physician within the next 2-3 days. You will need to call to make an appointment. Take this packet with the CT results to the appointment. Go to the nearest emergency department if you get an intense headache, change in your vision, change in your hearing, vomiting, change in behavior, or you feel like your condition requires additional emergency care. Print Language: YAKUT - Post Discharge Activity
[2018-04-10] MEDS ORDERED: LORazepam 1 MG TABLET PO ONE (15:36)
[2018-04-10] MEDS ORDERED: LORazepam 0.5 MG TABLET ONE (15:38)
[2018-04-10 16:14] VITALS: BP 153/68; PULSE 80; TEMP 98
== END 2018-04-10 16:10 | disposition home or self-care (01) ==
LOC: JER 13:24
PROC: 3E0234Z Introduction of Serum, Toxoid and Vaccine into Muscle, Percutaneous Approach (ICD-10-PCS; principal; 2018-04-10)
PROC: 0HQ1XZZ Repair Face Skin, External Approach (ICD-10-PCS; 2018-04-10)
DX: S01.81XA Laceration without foreign body of other part of head, initial encounter (principal); S50.311A Abrasion of right elbow, initial encounter; W18.39XA Other fall on same level, initial encounter; Y93.01 Activity, walking, marching and hiking; Y92.018 Other place in single-family (private) house as the place of occurrence of the external cause; Y99.8 Other external cause status; I10 Essential (primary) hypertension; I50.9 Heart failure, unspecified; M81.0 Age-related osteoporosis without current pathological fracture; Z96.641 Presence of right artificial hip joint; Z86.73 Personal history of transient ischemic attack (TIA), and cerebral infarction without residual deficits; Z99.89 Dependence on other enabling machines and devices; R26.89 Other abnormalities of gait and mobility
CPT/HCPCS: 12011; 70450-TC; 72125-TC; 90471; 90715; 99283-25

== ENCOUNTER 2019-07-07 05:06 | Inpatient (IN) | payer OTHER, BC ==
[2019-07-07 06:26] LABS: BASO % 1.1 % (0-2.0); EOS % 0.7 % (0-4.5); HEMOGLOBIN 13.5 GM/dL (10.7-15.3); LYMPH % 13.4 % (8-40); MCHC 34.7 g/dl (32.0-36.0); MEAN CELL VOLUME 89.5 fl (80-96); MEAN PLT VOLUME 8.5 fl (7.5-11.1); MONO % 9.4 % (3.8-10.2); NEUT % 75.4 % (42.8-82.8); PLATELET COUNT 190 K/MM3 (134-434); RBC 4.36 M/mm3 (3.60-5.2); RDW 13.2 % (11.6-15.6); WHITE BLOOD COUNT 7.7 K/mm3 (4.0-10.0)
[2019-07-07 06:55] LABS: ALBUMIN 3.6 g/dl (3.4-5.0); ALK PHOS 76 U/L (45-117); ANION GAP 6 MMOL/L (8-16); BLOOD UREA NITROGEN 11.2 mg/dL (7-18); CALCIUM 8.8 mg/dL (8.5-10.1); CHLORIDE 96 mmol/L (98-107); CO2 32 mmol/L (21-32); CREATININE 0.4 mg/dL (0.55-1.3); GLUCOSE,RANDOM 105 mg/dL (74-106); POTASSIUM 4.3 mmol/L (3.5-5.1); SGOT/AST 26 U/L (15-37); SGPT/ALT 24 U/L (13-61); SODIUM 134 mmol/L (136-145); TOT PROT 6.4 g/dl (6.4-8.2)
--- NOTE | 2019-07-07 07:23 | PDOC ---
Attending Attestation - Resident Resident Name: Mel Medrano - HPI HPI: 07/07/19 09:56 pt presents to the ED after unwitnessed fall. + laceration to the R pentecostalism. unable to give complete history of the fall. Denies current chest pain, shortness of breath or lightheadness. Complaining of R shoulder and R hip pain. 07/07/19 10:10 - Physicial Exam PE: 07/07/19 10:10 Agree with resident exam. Patient is sleeping but easily arousable. + small laceration to R pentecostalism. Decreased ROM of R shoulder without deformity or bony tenderness. + decreased ROM of R hip. - Medical Decision Making 07/07/19 10:13 Pt presents to the Ed after unwitnessed fall. Syncope vs mechanical fall. Ct head and C spine checked to rule out intracranial or cervical spinal injury and are negative. EKG shows sinus with no evidence of ischemia. Will check labs and admit to medicine for syncope work up.
--- NOTE | 2019-07-07 08:05 | PDOC ---
History of Present Illness - General Chief Complaint: Injury Stated Complaint: FALL, Time Seen by Provider: 07/07/19 05:10 - History of Present Illness Initial Comments: 07/07/19 08:07 88F with a PMH of depression and HTN who presents to the ED s/p unwitnessed fall at home. Per the patient's aid, the patient had been getting out of bed frequently to urinate during the night. She placed a diaper on the patient hoping she would stay in bed but the patient fell around 4:20 in the morning getting out of bed. She hit the R side of her head on her walker and landed on her R arm and hip. The patient cannot recall how she fell or if she felt dizzy or had heart palpitations. On ROS the patient denies CP, SOB, lightheadedness, dizziness, dysuria, hematuria, generalized weakness or sensory changes in her arms/ legs. She endorses increased urinary frequency and increased lower extremity edema. Past History - Travel Traveled outside of the country in the last 30 days: No Close contact w/someone who was outside of country & ill: No - Past Medical History Allergies/Adverse Reactions: Allergies Allergy/AdvReac Type Severity Reaction Status Date / Time No Known Allergies Allergy Verified 07/07/19 05:17 Home Medications: Ambulatory Orders LORazepam [Lorazepam] 0.5 mg PO TID 07/07/19 Sertraline HCl 50 mg PO DAILY 07/07/19 traZODone HCL [Trazodone HCl] 50 mg PO DAILY 07/07/19 Acetaminophen [Tylenol .Extra-Strength -] 1,000 mg PO Q6H PRN #0 tablet Calcium 500Mg/Vit-D 200 Units [Os-Silvio 500+D -] 1 tab PO BID 30 Days #60 tab Metoprolol Succinate [Toprol XL -] 25 mg PO DAILY 30 Days #30 tab.sr.24h Amox-Tr/K Cl [Augmentin - 875Mg Tablet] 1 tab PO BID #14 tablet 07/09/19 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.) COPD: No CHF: Yes DVT: No HTN: Yes - Surgical History Appendectomy: Yes - Immunization History Immunization Up to Date: Yes - Psycho Social/Smoking Cessation Hx Smoking Status: No Smoking History: Unknown if ever smoked Have you smoked in the past 12 months: No Number of Cigarettes Smoked Daily: 0 Hx Alcohol Use: No Drug/Substance Use Hx: No Substance Use Type: None Review of Systems - Review of Systems Able to Perform ROS?: Yes Is the patient limited [place] proficient: No Constitutional: No: Chills, Diaphoresis, Fever, Loss of Appetite HEENTM: No: Eye Pain, Double Vision, Nose Pain, Throat Pain, Throat Swelling, Mouth Pain Respiratory: No: Cough, Shortness of Breath Cardiac (ROS): Yes: Edema (bilateral LE edema to the knees). No: Chest Pain ABD/GI: No: Abdominal Distended, Abd. Pain w/ defecation, Constipated, Diarrhea , Nausea, Vomiting : Yes: Frequency. No: Burning, Dysuria Musculoskeletal: Yes: Joint Pain (pain at R hip and R shoulder) Integumentary: No: Bruising, Rash Neurological: No: Headache, Numbness, Paresthesia, Tingling Endocrine: No: Excessive Sweating, Flushing All Other Systems: Reviewed and Negative *Physical Exam - Vital Signs Last Vital Signs Temp Pulse Resp BP Pulse Ox 98.3 F 74 18 163/67 95 07/07/19 05:09 07/07/19 05:09 07/07/19 05:09 07/07/19 05:09 07/07/19 05:09 - Physical Exam General Appearance: Yes: Nourished, Appropriately Dressed. No: Apparent Distress HEENT: positive: EOMI, JOHNNIE, Other (extremely dry mucous membranes, 4cm laceration lateral to R eye not involving lids) Neck: positive: Trachea midline, Supple. negative: Tender Respiratory/Chest: positive: Lungs Clear, Normal Breath Sounds. negative: Respiratory Distress, Accessory Muscle Use, Crackles, Rales, Wheezing Cardiovascular: positive: Regular Rhythm, Regular Rate, S1, S2, Murmur (3/6 holosystolic murmur) Gastrointestinal/Abdominal: positive: Normal Bowel Sounds, Flat, Soft. 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 NML intact, Fully Oriented, Normal Mood/Affect , Normal Response, Motor Strength 5/5 Procedures - Laceration/Wound Repair Right Lateral Eye Wound Length: to 2.5 cm Wound Explored: clean Wound's Depth, Shape: superficial Irrigated w/ Saline: Yes Betadine Prep: No Anesthesia: 1% Lidocaine Amount of Anesthetic (ccs): 1 Wound Debrided: minimal Wound Repaired With: Sutures Suture Size/Type: 5:0, nylon Number of Sutures: 4 Sterile Dressing Applied: Yes Splint Applied: No Sling Applied: No ED Treatment Course - LABORATORY CBC & Chemistry Diagram: 07/08/19 05:40 07/08/19 05:40 - ADDITIONAL ORDERS Additional order review: Laboratory Results 07/07/19 12 06:19 06:19 Sodium 134 L Potassium 4.3 Chloride 96 L Carbon Dioxide 32 Anion Gap 6 L BUN 11.2 Creatinine 0.4 L Est GFR (CKD-EPI)AfAm 109.31 Est GFR (CKD-EPI)NonAf 94.31 Random Glucose 105 Calcium 8.8 Total Bilirubin 1.0 AST 26 ALT 24 Alkaline Phosphatase 76 Troponin I < 0.02 Total Protein 6.4 Albumin 3.6 07/07/19 06:19 RBC 4.36 MCV 89.5 MCHC 34.7 RDW 13.2 D MPV 8.5 Neutrophils % 75.4 Lymphocytes % 13.4 D Monocytes % 9.4 Eosinophils % 0.7 Basophils % 1.1 - RADIOLOGY Radiology Studies Ordered: Category Date Time Status CHEST X-RAY PORTABLE* [RAD] AM Radiology 07/08/19 06:00 Ordered Medical Decision Making - Medical Decision Making 07/07/19 08:10 88F with a PMH of depression and HTN who presents to the ED s/p unwitnessed fall at home. Per the patient's aid, the patient had been getting out of bed frequently to urinate during the night. Pt is on heparin, concern for bleed, though neuro exam is normal with sensation intact and strength 5/[address] with evidence of maxillary sinus fracture and blood in the maxillary sinus but no intracranial bleeds. Pt also has pain in her R hip and R shoulder, concern for fracture. Initial labs did not reveal any electrolyte derrangements or hyper/hypo-glycemia. Troponin was negative. Will obtain: - Xrays of the chest, R shoulder, R humerus, and R hip - BNP - CPK F/U - UA - Ucs Pt has a 4cm vertical laceration, lateral to her R eye not involving the eyelids. 07/07/19 11:02 - UA with 1+ LE and 25wbcs, symptomatic so will need treatment for UTI - Discharge - Discharge Information Problems reviewed: Yes Clinical Impression/Diagnosis: Syncope Qualifiers: Syncope type: unspecified Qualified Code(s): R55 - Syncope and collapse Condition: Stable Disposition: VNS/HOME HEALTH CARE - Admission Yes - Follow up/Referral - Patient Discharge Instructions - Post Discharge Activity
[2019-07-07] MEDS ORDERED: ACETAMINOPHEN 1000 MG/100 ML VIAL (NON FORMULARY) IVPB ONE (08:25)
[2019-07-07] MEDS ORDERED: ACETAMINOPHEN INJECTION 100 ML IVPB ONE (08:43)
[2019-07-07 09:29] LABS: EPI CELLS 1.9 /HPF (0-5/HPF); HYALINE CASTS 15 /lpf (0-8); URINE APPEARANCE CLOUDY; URINE BACTERIA 73.8 /hpf (NEGATIVE); URINE BILIRUBIN NEGATIVE (NEGATIVE); URINE COLOR YELLOW; URINE GLUCOSE (UA) NEGATIVE (NEGATIVE); URINE KETONE NEGATIVE (NEGATIVE); URINE LEUK ESTERASE 1+ (NEGATIVE); URINE NITRITE NEGATIVE (NEGATIVE); URINE PROTEIN TRACE (NEGATIVE); URINE WBC 25 /hpf (0-5)
[2019-07-07 10:32] LABS: URINE RBC 13.3 /hpf (0-4); YEAST FEW (NEGATIVE)
[2019-07-07] MEDS ORDERED: CEFTRIAXONE 1 GM in DEXTROSE 5%-WATER - 100 ML IVPB ONE (11:18)
[2019-07-07] MEDS ORDERED: CEFTRIAXONE 1 GM/50 ML BAG ONE (11:27)
[2019-07-07 11:34] LABS: N-TERMINAL BNP 806.2 pg/ml (5-450)
--- NOTE | 2019-07-07 12:11 | HP ---
CHIEF COMPLAINT: Syncope PCP: Dr Sherwood HISTORY OF PRESENT ILLNESS: Pt is an 88 y/o F with a significant past medical history of HTN, Depression, and diastolic CHF who presented to [facility] [place] due to a syncopal episode. Pt reports having to use the restroom to urinate much more frequently since yesterday 7pm. While she was on the commode earlier this morning, pt reportedly fell off. RESIDENTIAL HOUSEKEEPER did not directly witness the episode but endorsed to family that she does not believe patient lost any consciousness. Pt did however injure the right side of her head during the fall. Pt does have a history of falls in the past. Pt fell ~ 6 years ago where she hit her head and developed a subdural hematoma. Furthermore, pt fell 2 years ago where she fractured her right hip and subsequently underwent an ORIF. Per previous medical records, pt was on Metoprolol and Losartan for HTN upon discharge in Aug. Per family, pt's PCP discontinued pt on these medications as her BP appeared well controlled. Pt currently denies chest pain, shortness of breath, nausea/vomiting, fevers, or lightheadedness. ER course was notable for: (1) Right Rib Fractures (2) Lateral Wall Right Maxillary Sinus nondisplaced Fracture with hemorrhagic air fluid level (3) Leuk Est. 1+ Recent Travel: Denies PAST MEDICAL HISTORY: As above PAST SURGICAL HISTORY: Subdural hematoma evacuation, Right hip ORIF Social History: Smoking: Denies Alcohol: Former "heavy drinker". Quit 2 years ago. Drugs: Denies Allergies No Known Allergies Allergy (Verified 07/07/19 05:17) HOME MEDICATIONS: Home Medications Medication Instructions Recorded LORazepam [Lorazepam] 0.25 mg PO DAILY 07/07/19 LORazepam [Lorazepam] 0.5 mg PO DAILY 07/07/19 LORazepam [Lorazepam] 0.75 mg PO HS 07/07/19 Sertraline HCl 50 mg PO DAILY 07/07/19 traZODone HCL [Trazodone HCl] 25 mg PO DAILY 07/07/19 REVIEW OF SYSTEMS CONSTITUTIONAL: Absent: fever, chills, diaphoresis, generalized weakness, malaise, loss of appetite, weight change HEENT: Absent: rhinorrhea, nasal congestion, throat pain, throat swelling, difficulty swallowing, mouth swelling, ear pain, eye pain, visual changes CARDIOVASCULAR: Absent: chest pain, syncope, palpitations, irregular heart rate, lightheadedness , peripheral edema RESPIRATORY: Absent: cough, shortness of breath, dyspnea with exertion, orthopnea, wheezing, stridor, hemoptysis GASTROINTESTINAL: Absent: abdominal pain, abdominal distension, nausea, vomiting, diarrhea, constipation, melena, hematochezia GENITOURINARY: PRESENT: frequency MUSCULOSKELETAL: PRESENT: Pain right arm and right hip SKIN: Absent: rash, itching, pallor HEMATOLOGIC/IMMUNOLOGIC: Absent: easy bleeding, easy bruising, lymphadenopathy, frequent infections ENDOCRINE: Absent: unexplained weight gain, unexplained weight loss, heat intolerance, cold intolerance NEUROLOGIC: Absent: headache, focal weakness or paresthesias, dizziness, unsteady gait, seizure, mental status changes, bladder or bowel incontinence PSYCHIATRIC: Absent: anxiety, depression, suicidal or homicidal ideation, hallucinations. PHYSICAL EXAMINATION Vital Signs - 24 hr 07/07/19 07/07/19 07/07/19 05:09 08:10 08:37 Temperature 98.3 F Pulse Rate 74 Pulse Rate [ 74 Left Radial] Respiratory 18 20 Rate Blood Pressure 163/67 Blood Pressure 151/50 L [Left Arm] O2 Sat by Pulse 95 96 96 Oximetry (%) GENERAL: NAD HEAD: Superficial hematome right temporal region. EYES: EOMI Sclera Clear EARS, NOSE, THROAT: MMM. No active bleeding from mouth or nose. Dry blood in mouth. NECK: Supple LUNGS: Crackles Bilateral lung taylor HEART: Systolic Murmur LUSB. S1S2 ABDOMEN: No suprapubic tenderness. No guarding or rigidity MSK: Decreased ROM RUE. Tenderness Right hip. LOWER EXTREMITIES: 3+ pitting edema bilaterally . NEUROLOGICAL: Cranial nerves II-XII intact. Normal speech, PSYCHIATRIC: Cooperative. Good eye contact. Appropriate mood and affect. SKIN: Bruising right lateral head above right eyebrow. Laboratory Results - last 24 hr 07/07/19 07/07/19 07/07/19 06:19 06:19 06:19 WBC 7.7 RBC 4.36 Hgb 13.5 Hct 39.0 D MCV 89.5 MCH 31.0 MCHC 34.7 RDW 13.2 D Plt Count 190 D MPV 8.5 Absolute Neuts (auto) 5.8 Neutrophils % 75.4 Lymphocytes % 13.4 D Monocytes % 9.4 Eosinophils % 0.7 Basophils % 1.1 Nucleated RBC % 0 Sodium 134 L Potassium 4.3 Chloride 96 L Carbon Dioxide 32 Anion Gap 6 L BUN 11.2 Creatinine 0.4 L Est GFR (CKD-EPI)AfAm 109.31 Est GFR (CKD-EPI)NonAf 94.31 Random Glucose 105 Calcium 8.8 Total Bilirubin 1.0 AST 26 ALT 24 Alkaline Phosphatase 76 Creatine Kinase 204 H Creatine Kinase Index 3.0 CK-MB (CK-2) 6.3 H Troponin I < 0.02 < 0.02 B-Natriuretic Peptide 806.2 H Total Protein 6.4 Albumin 3.6 Urine Color Urine Appearance Urine pH Ur Specific [place] Urine Protein Urine Glucose (UA) Urine Ketones Urine Blood Urine Nitrite Urine Bilirubin Urine Urobilinogen Ur Leukocyte Esterase Urine WBC (Auto) Urine RBC (Auto) Urine Casts (Auto) U Pathogenic Cast Auto U Epithel Cells (Auto) Urine Bacteria (Auto) Urine Yeast (Auto) 07/07/19 09:15 WBC RBC Hgb Hct MCV MCH MCHC RDW Plt Count MPV Absolute Neuts (auto) Neutrophils % Lymphocytes % Monocytes % Eosinophils % Basophils % Nucleated RBC % Sodium Potassium Chloride Carbon Dioxide Anion Gap BUN Creatinine Est GFR (CKD-EPI)AfAm Est GFR (CKD-EPI)NonAf Random Glucose Calcium Total Bilirubin AST ALT Alkaline Phosphatase Creatine Kinase Creatine Kinase Index CK-MB (CK-2) Troponin I B-Natriuretic Peptide Total Protein Albumin Urine Color Yellow Urine Appearance Cloudy Urine pH 7.0 Ur Specific [place] 1.014 Urine Protein Trace Urine Glucose (UA) Negative Urine Ketones Negative Urine Blood 1+ H Urine Nitrite Negative Urine Bilirubin Negative Urine Urobilinogen 1.0 Ur Leukocyte Esterase 1+ H Urine WBC (Auto) 25 Urine RBC (Auto) 13.3 Urine Casts (Auto) 15 U Pathogenic Cast Auto None seen U Epithel Cells (Auto) 1.9 Urine Bacteria (Auto) 73.8 Urine Yeast (Auto) Few ASSESSMENT/PLAN: Pt is an 88 y/o F with a significant past medical history of HTN, Depression, and diastolic CHF who presented to [facility] [place] due to a syncopal episode. #Syncope 2/2 unknown etiology - Uncertain if patient lost consciousness. Does endorse head injury - Head CT performed---> No acute intracranial pathology. -Echocardiogram to assess for any wall motion abnormalities -Repeat EKG. 1st EKG-->nl sinus rhythm, QTc 465. No ST-T wave depressions/ elevations -Carotid Dopplers -Tele monitoring -Cardiology Consult -CBC/CMP in am #Bilateral Pleural Effusions/Pneumonia/Atelectasis -Ceftriaxone and Doxycycline as QTc is prolonged at 465 so cannot administer Azithromycin -Urine Antigens for Legionella/Strep Pneumo #Urinary Tract Infection -Leuk Esterase 1+ -Endorses increasing urinary frequency over past 1 day -Will place on Ceftriaone 1 gm daily until urine cultures are resulted #Diastolic CHF -BNP 880 -Echocardiogram in Aug revealed nl EF. Repeat Echo -Will administer one time dose 20 IV lasix. -Cardiology Consult #Rib Fractures -Chest CT--> Nondisplaced left lower rib fractures. and possibly nondisplaced fractures on the right. Healing fracture lateral arch of the right ninth rib. Bilateral lower lobe consolidation /atelectasis/pneumonia with small bilateral pleural effusions. -Pain control with Lidocaine Patch to applied area and PO Tylenol # Right Maxillary Sinus Nondisplaced fracture w/ Hemorrhagic air fluid levels -As seen on Head CT. -Spoke with ENT- Dr Haddad. Informed of CT reading. States no acute intervention at this juncture as pt not actively bleeding from nose or mouth. Will see patient as an outpatient. Contact PRN if change in condition #FEN -No standing fluids -Monitor Electrolytes -Sodium Controlled Diet #DVT ppx: -SCDs #Dispo: -Tele Visit type - Emergency Visit Emergency Visit: Yes ED Registration Date: 07/07/19 Care time: The patient presented to the Emergency Department on the above date and was hospitalized for further evaluation of their emergent condition. - New Patient This patient is new to me today: Yes Date on this admission: 07/07/19 - Critical Care Critical Care patient: No ATTENDING PHYSICIAN STATEMENT I saw and evaluated the patient. I reviewed the resident's note and discussed the case with the resident. I agree with the resident's findings and plan as documented. SUBJECTIVE: OBJECTIVE: ASSESSMENT AND PLAN:
[2019-07-07] MEDS ORDERED: FUROSEMIDE 40 MG/4 ML INJECTABLE VIAL IVPUSH ONE (12:47)
[2019-07-07] MEDS ORDERED: LIDOCAINE 5% TOPICAL PATCH TP PRN (13:47)
--- NOTE | 2019-07-07 14:39 | EKG ---
Test Reason : Blood Pressure : / mmHG Vent. Rate : 084 BPM Atrial Rate : 084 BPM P-R Int : 168 ms QRS Dur : 086 ms QT Int : 394 ms P-R-T Axes : 044 109 038 degrees QTc Int : 465 ms NORMAL SINUS RHYTHM RIGHTWARD AXIS BORDERLINE ECG WHEN COMPARED WITH ECG OF 31-AUG-2017 13:23, QRS AXIS SHIFTED RIGHT Confirmed by BRITTA AMOS MD ([id number]) on 07/07/2019 2:39:08 PM Referred By: Confirmed By:BRITTA AMOS MD
--- NOTE | 2019-07-07 14:59 | PN ---
Teaching Attending Note Name of Resident: Brad Portillo ATTENDING PHYSICIAN STATEMENT I saw and evaluated the patient. I reviewed the resident's note and discussed the case with the resident. I agree with the resident's findings and plan as documented. 88 F h/o HFpEF, anxiety, depression, Etoh dependence (quit 2 years ago) with multiple falls in the past presents with mechanical v.s. syncopal fall. Patient was ambulating with walker to go to the bathroom until she lost balance and had an unwitnessed fall on her R side of face with questionable LOC. As per her 24 hour SUPERVISOR MOLD YARD, patient was calling her for assistance, no AMS, no seizure-like activity observed. Patient has history of several falls in the past s/p hematoma with craniotomy years ago as well as R hip reconstructive surgery. Vital Signs - 24 hr 07/07/19 07/07/19 07/07/19 05:09 08:10 08:37 Temperature 98.3 F Pulse Rate 74 Pulse Rate [ 74 Left Radial] Respiratory 18 20 Rate Blood Pressure 163/67 Blood Pressure 151/50 L [Left Arm] O2 Sat by Pulse 95 96 96 Oximetry (%) 07/07/19 14:00 Temperature Pulse Rate Pulse Rate [ 76 Left Radial] Respiratory 20 Rate Blood Pressure Blood Pressure 142/53 L [Left Arm] O2 Sat by Pulse 98 Oximetry (%) PE GA comfortable, AAox2 (place and self only), NAD HEENT R maxillary/temporal superficial hematoma with bruising, no bleeding from nose or mouth, neck supple, EOMI Chest bibasilar crackles on auscultation, moderate kyphosis noted CVS S1, S2+, KAMARI+, regular rate and rhythm Abdomen Thin body habitus, soft, NT, ND, BS+ Extremities Bilateral 2+ pitting edema, no calf tenderness, moves all 4 extremities Laboratory Results - last 24 hr 07/07/19 07/07/19 07/07/19 06:19 06:19 06:19 WBC 7.7 RBC 4.36 Hgb 13.5 Hct 39.0 D MCV 89.5 MCH 31.0 MCHC 34.7 RDW 13.2 D Plt Count 190 D MPV 8.5 Absolute Neuts (auto) 5.8 Neutrophils % 75.4 Lymphocytes % 13.4 D Monocytes % 9.4 Eosinophils % 0.7 Basophils % 1.1 Nucleated RBC % 0 Sodium 134 L Potassium 4.3 Chloride 96 L Carbon Dioxide 32 Anion Gap 6 L BUN 11.2 Creatinine 0.4 L Est GFR (CKD-EPI)AfAm 109.31 Est GFR (CKD-EPI)NonAf 94.31 Random Glucose 105 Calcium 8.8 Total Bilirubin 1.0 AST 26 ALT 24 Alkaline Phosphatase 76 Creatine Kinase 204 H Creatine Kinase Index 3.0 CK-MB (CK-2) 6.3 H Troponin I < 0.02 < 0.02 B-Natriuretic Peptide 806.2 H Total Protein 6.4 Albumin 3.6 TSH 0.85 Urine Color Urine Appearance Urine pH Ur Specific [place] Urine Protein Urine Glucose (UA) Urine Ketones Urine Blood Urine Nitrite Urine Bilirubin Urine Urobilinogen Ur Leukocyte Esterase Urine WBC (Auto) Urine RBC (Auto) Urine Casts (Auto) U Pathogenic Cast Auto U Epithel Cells (Auto) Urine Bacteria (Auto) Urine Yeast (Auto) Alcohol, Quantitative Cancelled 07/07/19 07/07/19 09:15 13:30 WBC RBC Hgb Hct MCV MCH MCHC RDW Plt Count MPV Absolute Neuts (auto) Neutrophils % Lymphocytes % Monocytes % Eosinophils % Basophils % Nucleated RBC % Sodium Potassium Chloride Carbon Dioxide Anion Gap BUN Creatinine Est GFR (CKD-EPI)AfAm Est GFR (CKD-EPI)NonAf Random Glucose Calcium Total Bilirubin AST ALT Alkaline Phosphatase Creatine Kinase Creatine Kinase Index CK-MB (CK-2) Troponin I B-Natriuretic Peptide Total Protein Albumin TSH Urine Color Yellow Urine Appearance Cloudy Urine pH 7.0 Ur Specific [place] 1.014 Urine Protein Trace Urine Glucose (UA) Negative Urine Ketones Negative Urine Blood 1+ H Urine Nitrite Negative Urine Bilirubin Negative Urine Urobilinogen 1.0 Ur Leukocyte Esterase 1+ H Urine WBC (Auto) 25 Urine RBC (Auto) 13.3 Urine Casts (Auto) 15 U Pathogenic Cast Auto None seen U Epithel Cells (Auto) 1.9 Urine Bacteria (Auto) 73.8 Urine Yeast (Auto) Few Alcohol, Quantitative < 3 Current Medications Generic Name Dose Route Start Last Admin Trade Name Freq PRN Reason Stop Dose Admin Acetaminophen 1,000 mg 07/07/19 13:48 Tylenol - PO Q6H PRN PAIN LEVEL 1-5 Furosemide 20 mg 07/07/19 12:47 07/07/19 14:00 Lasix Injection - IVPUSH 07/07/19 12:48 20 mg ONCE ONE Administration Ceftriaxone Sodium 1,000 mg/ 50 mls @ 100 mls/hr 07/08/19 12:00 Dextrose IVPB 07/08/19 12:29 ONCE ONE Doxycycline Hyclate 100 mg/ 100 mls @ 100 mls/hr 07/07/19 22:00 Dextrose IVPB BID REPLACED BY [facility] Lidocaine 1 patch 07/07/19 13:47 Lidoderm Patch - TP DAILY PRN PAIN LEVEL 4 - 6 Miscellaneous 1 each 07/07/19 22:00 Lidoderm Patch Removal MC DAILY@2200 REPLACED BY [facility] A/P: 88 F PMHx multiple falls, HFpEF, anxiety, depression with mechanical v.s. syncopal fall. Fall Mechanical v.s. syncopal Syncope observation and workup with Carotid, Echo, 24hr tele monitoring, medication reconciliation will lower Lorazepam to 0.25mg TID as this is a fall risk Rehab/PT consult for deconditioning and gait training Discussed with family, patient firmly refusing SNF placement HFpEF with acute exacerbation Elevated BNP 806, crackles on exam, LE edema Gentle diuresis with Lasix 20mg, repeat chest x-ray in AM, doubt PNA due to WBC count of 7, no symptoms or fevers continue antibiotics for now send procalcitonin levels if negative DC antibiotics. Chest physiotherapy Echo, Carotids pending Cardiology consult for management of heart failure Anxiety disorder Patient on Lorazepam 0.5mg TID which possibly may have been the cause for her falls, will slowly wean from benzos with Lorazepam 0.25mg TID, and go down steadily. Depression Continue Trazodone, Zoloft FEN: Hold IVF for now, Chem 10 daily, Heart healthy diet, strict I/O's. Fall precautions Seizure precautions DVT ppx: with SCD for now FULL CODE
[2019-07-07] MEDS: LORazepam 0.5 MG TABLET PO SCH ×2 (15:42→22:22)
--- NOTE | 2019-07-07 16:22 | ECHO ---
Name: ROBBIN BREWER Exam:Adult Echocardiogram Study Date: 07/07/2019 02:15 PM Age: 88 yrs Reason For Study: syncope Height: 60 in Weight: 94 lb BSA: 1.4 m2 Procedure A complete two-dimensional transthoracic echocardiogram was performed (2D, M-mode, Doppler and color flow Doppler). The study was technically difficult with many images being suboptimal in quality. Left Ventricle The left ventricular size, thickness and function are normal. The left ventricular ejection fraction is normal. Ejection Fraction = 55-60%. No regional wall motion abnormalities noted. Right Ventricle The right ventricle is normal in size and function. Atria Normal left and right atrial size and function. Mitral Valve There is no mitral regurgitation noted. Tricuspid Valve There is mild tricuspid regurgitation. There is moderate pulmonary hypertension. Aortic Valve No hemodynamically significant valvular aortic stenosis. Moderate aortic regurgitation. Pulmonic Valve There is no pulmonic valvular regurgitation. Great Vessels The aortic root is normal size. Pericardium/Pleura There is no pericardial effusion. Interpretation Summary The study was technically difficult with many images being suboptimal in quality. The left ventricular size, thickness and function are normal The right ventricle is normal in size and function. There is mild tricuspid regurgitation. There is moderate pulmonary hypertension. Moderate aortic regurgitation. MD Trevon Jarvis 07/07/2019 04:22 PM
[2019-07-07] MEDS ORDERED: LORazepam 0.5 MG TABLET ONE (19:43)
[2019-07-07] MEDS ORDERED: DOXYCYCLINE INJECTION 100 MG in DEXTROSE 5%-WATER - 100 ML IVPB SCH (22:00)
[2019-07-07] MEDS: CALCIUM 500MG/VIT-D 200 UNITS COMBO TABLET (FP) PO SCH (22:22)
[2019-07-07] MEDS: traZODone HCL 50 MG TABLET (FP) PO SCH (22:22)
[2019-07-07] MEDS: LIDOCAINE PATCH REMOVAL MC SCH (22:26)
[2019-07-08 00:52] VITALS: BMI 19.0
[2019-07-08] MEDS: LORazepam 0.5 MG TABLET PO SCH ×4 (05:58→21:27)
[2019-07-08 06:49] LABS: BASO % 1.3 % (0-2.0); EOS % 1.5 % (0-4.5); HEMATOCRIT 36.2 % (32.4-45.2); HEMOGLOBIN 12.4 GM/dL (10.7-15.3); LYMPH % 17.3 % (8-40); MCH 30.9 pg (25.7-33.7); MCHC 34.3 g/dl (32.0-36.0); MEAN PLT VOLUME 8.9 fl (7.5-11.1); MONO % 12.1 % (3.8-10.2); NEUT % 67.8 % (42.8-82.8); PLATELET COUNT 196 K/MM3 (134-434); RBC 4.02 M/mm3 (3.60-5.2); RDW 12.9 % (11.6-15.6); WHITE BLOOD COUNT 6.6 K/mm3 (4.0-10.0)
[2019-07-08 06:57] LABS: INR 1.08 (0.83-1.09); PROTHROMBIN TIME (PATIENT) 12.8 SEC (9.7-13.0)
[2019-07-08 07:00] LABS: ACTIVATED PTT 30.8 SECONDS (25.2-36.5)
[2019-07-08 07:13] LABS: ALBUMIN 3.1 g/dl (3.4-5.0); BILIRUBIN,TOTAL 0.9 mg/dL (0.2-1); BLOOD UREA NITROGEN 13.6 mg/dL (7-18); CALCIUM 8.9 mg/dL (8.5-10.1); CREATININE 0.4 mg/dL (0.55-1.3); MAGNESIUM 1.8 mg/dL (1.8-2.4); PHOSPHOROUS 3.6 mg/dL (2.5-4.9); POTASSIUM 3.7 mmol/L (3.5-5.1); TOT PROT 5.7 g/dl (6.4-8.2)
[2019-07-08] MEDS ORDERED: FUROSEMIDE 40 MG/4 ML INJECTABLE VIAL IVPUSH ONE (08:41)
--- NOTE | 2019-07-08 10:23 | CON.CARD ---
Consult Consult Specialty:: Cardiology Referred by:: Hospitalist Medicine Reason for Consultation:: Syncope - History of Present Illness Chief Complaint: Syncope History of Present Illness: Pt is an 88 y/o F with a significant past medical history of HTN, Depression, diastolic dysfunction with h/o failure after administration of hypertonic saline , gait dysfunction with h/o mechanical falls admitted for fall, possible syncopal episode. Case d/w son Fidel who stated patient was going to bathroom with walker assistance when she tripped over right foot and sustained right maxillary fracture, he does not believe patient lost consciousness. Pt fell ~ 6 years ago where she hit her head and developed a subdural hematoma. Furthermore, pt fell 2 years ago where she fractured her right hip and subsequently underwent an ORIF. Per previous medical records, pt was on Metoprolol and Losartan for HTN upon discharge in Aug. Per family, pt's PCP discontinued pt on these medications as her BP appeared well controlled. Pt currently denies chest pain, shortness of breath, nausea/vomiting, fevers, or lightheadedness. Hospital course was notable for: (1) Right Rib Fractures (2) Lateral Wall Right Maxillary Sinus nondisplaced Fracture with hemorrhagic air fluid level (3) Leuk Est. 1+ (4) Tele: 4 beat NSVT - History Source History Provided By: Patient Limitations to Obtaining History: No Limitations - Past Medical History Cardio/Vascular: Yes: HTN ...: No Psych: Yes: Depression - Alcohol/Substance Use Hx Alcohol Use: No History of Substance Use: reports: None - Smoking History Smoking history: Unknown if ever smoked Have you smoked in the past 12 months: No Aproximately how many cigarettes per day: 0 Home Medications - Allergies Allergies/Adverse Reactions: Allergies Allergy/AdvReac Type Severity Reaction Status Date / Time No Known Allergies Allergy Verified 07/07/19 05:17 - Home Medications Home Medications: Ambulatory Orders LORazepam [Lorazepam] 0.5 mg PO TID 07/07/19 Sertraline HCl 50 mg PO DAILY 07/07/19 traZODone HCL [Trazodone HCl] 50 mg PO DAILY 07/07/19 Review of Systems - Review of Systems Neurological: reports: Unsteady Gait Vital Signs: Vital Signs Temperature 97.8 F 07/08/19 05:56 Pulse Rate 73 07/08/19 05:56 Respiratory Rate 18 07/08/19 05:56 Blood Pressure 161/42 L 07/08/19 05:56 O2 Sat by Pulse Oximetry (%) 93 L 07/07/19 20:40 Constitutional: Yes: No Distress, Calm, Thin Neck: Yes: Supple Respiratory: Yes: Regular, CTA Bilaterally Gastrointestinal: Yes: Soft, Hypoactive Bowel Sounds Cardiovascular: Yes: Regular Rate and Rhythm JVD: No Carotid Bruit: No Heart Sounds: Yes: S1, S2 Murmur: Yes: Diastolic Murmur, Grade 1 Peripheral Pulses WNL: No - Other Data Labs, Other Data: CBC, BMP 07/08/19 05:40 07/08/19 05:40 INR, PTT INR 1.08 (0.83-1.09) 07/08/19 05:40 Troponin, BNP 07/07/19 07/07/19 07/07/19 06:19 06:19 13:30 Troponin I < 0.02 < 0.02 < 0.02 B-Natriuretic Peptide 806.2 H Troponin, BNP 07/07/19 07/07/19 07/07/19 06:19 06:19 13:30 Troponin I < 0.02 < 0.02 < 0.02 B-Natriuretic Peptide 806.2 H NSR @ 84 right-axis deviation Ejection Fraction %: LVEF > or = 40 % Imaging - Results Chest X-ray: Report Reviewed (NAD) Problem List - Problems (1) Neurologic gait dysfunction Code(s): R26.9 - UNSPECIFIED ABNORMALITIES OF GAIT AND MOBILITY (2) Fall Code(s): W19.XXXA - UNSPECIFIED FALL, INITIAL ENCOUNTER Qualifiers: Encounter type: initial encounter Qualified Code(s): W19.XXXA - Unspecified fall, initial encounter (3) Fracture Code(s): T14.8XXA - OTHER INJURY OF UNSPECIFIED BODY REGION, INITIAL ENCOUNTER (4) HTN (hypertension) Code(s): I10 - ESSENTIAL (PRIMARY) HYPERTENSION Qualifiers: Hypertension type: essential hypertension Qualified Code(s): I10 - Essential (primary) hypertension (5) Status post open reduction with internal fixation of fracture Code(s): Z96.7 - PRESENCE OF OTHER BONE AND TENDON IMPLANTS; Z87.81 - PERSONAL HISTORY OF (HEALED) TRAUMATIC FRACTURE (6) Diastolic dysfunction Code(s): I51.89 - OTHER ILL-DEFINED HEART DISEASES Assessment/Plan 07/07/2019 Carotid US: right 50-69% CCA stenosis 07/07/2019 Echo: Normal biventricular size and fxn, mod AR, mild TR, mod pulm HTN 1. Gait dyfunction with recurrent mechanical falls, denies syncope 2. Diastolic dysfunction 3. Rib fractures and right lateral maxillary wall fracture 4. Hypertension 5. UTI 6. Asymptomatic NSVT with preserved LV fxn P:1. Consider resuming Toprol XL 25 qd as hemodynamics tolerate 2. PT, gait training with walker assistance, analgesia as needed 3. Complete empiric abx course 4. Thank you for consultative opportunity
[2019-07-08] MEDS ORDERED: DOXYCYCLINE HYCLATE 100 MG VIAL ONE ×2 (11:15→22:40)
[2019-07-08] MEDS ORDERED: DEXTROSE 5%-WATER 100 ML IVPB ONE ×2 (11:15→22:40)
[2019-07-08] MEDS: ACETAMINOPHEN 500 MG TABLET (FP) PO PRN ×2 (11:33→17:58)
[2019-07-08] MEDS: CALCIUM 500MG/VIT-D 200 UNITS COMBO TABLET (FP) PO SCH ×2 (11:34→21:27)
[2019-07-08] MEDS: SERTRALINE HCL 50 MG TABLET (FP) PO SCH (11:34)
[2019-07-08] MEDS: DOXYCYCLINE INJECTION 100 MG in DEXTROSE 5%-WATER 100 ML IVPB SCH ×2 (11:34→22:42)
--- NOTE | 2019-07-08 11:56 | PN ---
Physical Exam: Patient seen and examined. 88 F h/o anxiety, depression, prior Etoh abuse presents with possible syncopal episode, patient doing well this morning, denies SOB or chest pain, awaiting cardiology evaluation. Spoke to the family in regards to Lorazepam use for anxiety, they understand the risk of continued falls while on this medication and they spoke to her outpatient psychiatrist who also warned them about the fall risk, family made decision to continue this medication despite the risk of falls. Vital Signs Period Temp Pulse Resp BP Sys/Da Silva Pulse Ox Last 24 Hr 97.8 F-98.7 F 73-88 18-22 134-163/41-63 93-98 GENERAL: The patient is awake, alert, and oriented, in no acute distress, eating breakfast. HEAD: R maxillary swelling with bruising no active bleeding. EYES: EOMI, mild swelling R lateral ocular orbit with bruising. ENT: Ears normal, nares patent, oropharynx clear without exudates, moist mucous membranes. NECK: Trachea midline, full range of motion, supple. LUNGS: faint bibasilar crackles, good air entry b/l, moderate kyphosis noted. HEART: S1, S2+, RRR, KAMARI+ ABDOMEN: Soft, nontender, nondistended, normoactive bowel sounds, no guarding, no rebound. Thin body habitus. 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 Normal speech, gait not observed. PSYCH: Normal mood, normal affect. SKIN: Warm, dry, normal turgor, no rashes or lesions noted Laboratory Results - last 24 hr 07/07/19 07/07/19 07/07/19 06:19 06:19 13:30 WBC RBC Hgb Hct MCV MCH MCHC RDW Plt Count MPV Absolute Neuts (auto) Neutrophils % Lymphocytes % Monocytes % Eosinophils % Basophils % Nucleated RBC % PT with INR INR PTT (Actin FS) Sodium Potassium Chloride Carbon Dioxide Anion Gap BUN Creatinine Est GFR (CKD-EPI)AfAm Est GFR (CKD-EPI)NonAf Random Glucose Calcium Phosphorus Magnesium Total Bilirubin AST ALT Alkaline Phosphatase Creatine Kinase Index 3.0 CK-MB (CK-2) 6.3 H Troponin I < 0.02 < 0.02 Total Protein Albumin TSH 0.85 Alcohol, Quantitative Cancelled < 3 07/08/19 07/08/19 07/08/19 05:40 05:40 05:40 WBC 6.6 RBC 4.02 Hgb 12.4 Hct 36.2 MCV 90.0 MCH 30.9 MCHC 34.3 RDW 12.9 Plt Count 196 MPV 8.9 Absolute Neuts (auto) 4.5 Neutrophils % 67.8 Lymphocytes % 17.3 D Monocytes % 12.1 H Eosinophils % 1.5 D Basophils % 1.3 Nucleated RBC % 0 PT with INR 12.80 INR 1.08 PTT (Actin FS) 30.8 Sodium 133 L Potassium 3.7 Chloride 94 L Carbon Dioxide 32 Anion Gap 7 L BUN 13.6 Creatinine 0.4 L Est GFR (CKD-EPI)AfAm 109.31 Est GFR (CKD-EPI)NonAf 94.31 Random Glucose 73 L Calcium 8.9 Phosphorus 3.6 Magnesium 1.8 Total Bilirubin 0.9 AST 17 ALT 18 Alkaline Phosphatase 66 Creatine Kinase Index CK-MB (CK-2) Troponin I Total Protein 5.7 L Albumin 3.1 L TSH Alcohol, Quantitative Active Medications Generic Name Dose Route Start Last Admin Trade Name Freq PRN Reason Stop Dose Admin Acetaminophen 1,000 mg 07/07/19 13:48 07/08/19 11:33 Tylenol - PO 1,000 mg Q6H PRN Administration PAIN LEVEL 1-5 Calcium Carbonate/Cholecalciferol 1 tab 07/07/19 22:00 07/08/19 11:34 Os-Silvio 500+D - PO 1 tab BID LISA Administration Ceftriaxone Sodium 1 gm/ 50 mls @ 100 mls/hr 07/08/19 12:00 Dextrose IVPB 07/08/19 12:29 ONCE ONE Doxycycline Hyclate 100 mg/ 100 mls @ 100 mls/hr 07/08/19 08:03 07/08/19 11: 34 Dextrose IVPB 100 mls/hr BID LISA Administration Lidocaine 1 patch 07/07/19 13:47 07/08/19 11:34 Lidoderm Patch - TP 1 patch DAILY PRN Administration PAIN LEVEL 4 - 6 Lorazepam 0.5 mg 07/07/19 15:30 07/08/19 05:58 Ativan - PO Not Given TID LISA Miscellaneous 1 each 07/07/19 22:00 07/07/19 22:26 Lidoderm Patch Removal MC Not Given DAILY@2200 [facility] Sertraline HCl 50 mg 07/08/19 10:00 07/08/19 11:34 Zoloft - PO 50 mg DAILY LISA Administration Trazodone HCl 50 mg 07/07/19 22:00 07/07/19 22:22 Desyrel - PO 50 mg HS LISA Administration ASSESSMENT/PLAN: 88 year old F history of frequent falls, anxiety, depression admitted for questionable syncopal episode after using the bathroom. Overnight telemetry suggestive of short runs of NSVT, asymptomatic, patient awaiting cardiology evaluation for further recommendations. Plan: #Syncope Keep on telemetry Follow up Cardiology for further recommendations PT evaluation pending #HFpEF Good output after 2 doses of 20mg of Lasix, oxygenation also improved, will follow up repeat CXR Continue incentive spirometry Echo with EF WNL, moderate mitral and aortic regurgitation #Anxiety disorder Patient became agitated and tachypneic when off Ativan, will resume #Depression Continue Zoloft, Trazodone FEN: PO intake adequate hold IVF, Chem 10 daily, heart healthy low salt diet, monitor I/O's Fall precautions DVT ppx: SCD for now in view of maxillary sinus fracture FULL CODE Visit type - Emergency Visit Emergency Visit: Yes ED Registration Date: 07/07/19 Care time: The patient presented to the Emergency Department on the above date and was hospitalized for further evaluation of their emergent condition. - New Patient This patient is new to me today: No - Critical Care Critical Care patient: No - Discharge Referral Referred to [facility] No
--- NOTE | 2019-07-08 11:57 | CONSULT ---
Consult - text type - Consultation Consultation Note: ENT consult Case records reviewed. Briefly, this is an 88 yo woman with a fall and a resulting facial injury. Review of CT images shows a small nondisplaced fracture of the lateral wall of the right maxillary sinus with fluid density partly filling the sinus. No other sinus/facial fractures noted, no evident other sinus abnormalities, and no indication of active bleeding during the hospitalization so far, as per her medical team. Imp: nondisplaced fracture of the right lateral maxillary wall with suspected bleeding into the right maxillary sinus. The fracture is not expected to lead to discomfort or deformity, and the bleeding is most likely temporary. Recommend outpatient follow up for further assessment, and contact me if there is a deterioration of her clinical status, such as due to epistaxis or facial pain.
[2019-07-08] MEDS ORDERED: CEFTRIAXONE 1 GM in DEXTROSE 5%-WATER - 50 ML IVPB ONE (12:00)
[2019-07-08] MEDS ORDERED: DEXTROSE 5%-WATER - 50 ML IVPB ONE (14:01)
[2019-07-08] MEDS ORDERED: cefTRIAXone SODIUM 1 GM VIAL ONE (14:01)
[2019-07-08] MEDS: metoPROLOL SUCCINATE 25 MG TAB.SR.24H (FP) PO SCH (15:08)
--- NOTE | 2019-07-08 16:08 | HP ---
88 year old female with history of anxiety, depression, prior Etoh abuse presents admitted for questionable syncopal episode v.s. mechanical fall. Patient was getting up from toilet until she lost balance and fell striking the right side of her face. Patient has a history of falls in the past. Throughout hospital course patient was seen by patient doing well this morning, denies SOB or chest pain, awaiting cardiology evaluation. Spoke to the family in regards to Lorazepam use for anxiety, they understand the risk of continued falls while on this medication and they spoke to her outpatient psychiatrist who also warned them about the fall risk, family made decision to continue this medication despite the risk of falls. HOME MEDICATIONS: Home Medications Medication Instructions Recorded LORazepam [Lorazepam] 0.5 mg PO TID 07/07/19 Sertraline HCl 50 mg PO DAILY 07/07/19 traZODone HCL [Trazodone HCl] 50 mg PO DAILY 07/07/19 Acetaminophen [Tylenol 1,000 mg PO Q6H PRN #0 tablet 07/08/19 .Extra-Strength -] Calcium 500Mg/Vit-D 200 Units 1 tab PO BID 30 Days #60 tab 07/08/19 [Os-Silvio 500+D -] Cefpodoxime Proxetil [Vantin (Nf) 100 mg PO BID #10 tablet 07/08/19 -] Doxycycline Hyclate 100 mg PO BID 3 Days #6 tablet 07/08/19 Metoprolol Succinate [Toprol XL -] 25 mg PO DAILY 30 Days #30 07/08/19 tab.sr.24h REVIEW OF SYSTEMS CONSTITUTIONAL: Absent: fever, chills, diaphoresis, generalized weakness, malaise, loss of appetite, weight change HEENT: Absent: rhinorrhea, nasal congestion, throat pain, throat swelling, difficulty swallowing, mouth swelling, ear pain, eye pain, visual changes CARDIOVASCULAR: Absent: chest pain, syncope, palpitations, irregular heart rate, lightheadedness , peripheral edema RESPIRATORY: Absent: cough, shortness of breath, dyspnea with exertion, orthopnea, wheezing, stridor, hemoptysis GASTROINTESTINAL: Absent: abdominal pain, abdominal distension, nausea, vomiting, diarrhea, constipation, melena, hematochezia GENITOURINARY: Absent: dysuria, frequency, urgency, hesitancy, hematuria, flank pain, genital pain MUSCULOSKELETAL: Absent: myalgia, arthralgia, joint swelling, back pain, neck pain SKIN: Absent: rash, itching, pallor HEMATOLOGIC/IMMUNOLOGIC: Absent: easy bleeding, easy bruising, lymphadenopathy, frequent infections ENDOCRINE: Absent: unexplained weight gain, unexplained weight loss, heat intolerance, cold intolerance NEUROLOGIC: Absent: headache, focal weakness or paresthesias, dizziness, unsteady gait, seizure, mental status changes, bladder or bowel incontinence PSYCHIATRIC: Absent: anxiety, depression, suicidal or homicidal ideation, hallucinations. PHYSICAL EXAMINATION GENERAL: The patient is awake, alert, and oriented, in no acute distress, eating breakfast. HEAD: R maxillary swelling with bruising no active bleeding. EYES: EOMI, mild swelling R lateral ocular orbit with bruising. ENT: Ears normal, nares patent, oropharynx clear without exudates, moist mucous membranes. NECK: Trachea midline, full range of motion, supple. LUNGS: faint bibasilar crackles, good air entry b/l, moderate kyphosis noted. HEART: S1, S2+, RRR, KAMARI+ ABDOMEN: Soft, nontender, nondistended, normoactive bowel sounds, no guarding, no rebound. Thin body habitus. 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 Normal speech, gait not observed. PSYCH: Normal mood, normal affect. SKIN: Warm, dry, normal turgor, no rashes or lesions noted Vital Signs - 24 hr 07/07/19 07/07/19 07/07/19 17:22 20:06 20:37 Temperature 97.8 F 98.7 F Pulse Rate 73 Pulse Rate [ 86 79 Left Radial] Respiratory 20 22 H 20 Rate Blood Pressure 135/41 L Blood Pressure 163/47 L 134/51 L [Left Arm] O2 Sat by Pulse 95 95 93 L Oximetry (%) 07/07/19 07/08/19 07/08/19 20:40 00:00 05:56 Temperature 98.6 F 97.8 F Pulse Rate 78 73 Pulse Rate [ Left Radial] Respiratory 20 18 Rate Blood Pressure 140/44 L 161/42 L Blood Pressure [Left Arm] O2 Sat by Pulse 93 L Oximetry (%) 07/08/19 10:00 Temperature 97.9 F Pulse Rate 88 Pulse Rate [ Left Radial] Respiratory 20 Rate Blood Pressure 151/63 Blood Pressure [Left Arm] O2 Sat by Pulse Oximetry (%) Laboratory Results - last 24 hr 07/07/19 07/08/19 07/08/19 13:30 05:40 05:40 WBC 6.6 RBC 4.02 Hgb 12.4 Hct 36.2 MCV 90.0 MCH 30.9 MCHC 34.3 RDW 12.9 Plt Count 196 MPV 8.9 Absolute Neuts (auto) 4.5 Neutrophils % 67.8 Lymphocytes % 17.3 D Monocytes % 12.1 H Eosinophils % 1.5 D Basophils % 1.3 Nucleated RBC % 0 PT with INR 12.80 INR 1.08 PTT (Actin FS) 30.8 Sodium Potassium Chloride Carbon Dioxide Anion Gap BUN Creatinine Est GFR (CKD-EPI)AfAm Est GFR (CKD-EPI)NonAf Random Glucose Calcium Phosphorus Magnesium Total Bilirubin AST ALT Alkaline Phosphatase Troponin I < 0.02 Total Protein Albumin Alcohol, Quantitative < 3 07/08/19 05:40 WBC RBC Hgb Hct MCV MCH MCHC RDW Plt Count MPV Absolute Neuts (auto) Neutrophils % Lymphocytes % Monocytes % Eosinophils % Basophils % Nucleated RBC % PT with INR INR PTT (Actin FS) Sodium 133 L Potassium 3.7 Chloride 94 L Carbon Dioxide 32 Anion Gap 7 L BUN 13.6 Creatinine 0.4 L Est GFR (CKD-EPI)AfAm 109.31 Est GFR (CKD-EPI)NonAf 94.31 Random Glucose 73 L Calcium 8.9 Phosphorus 3.6 Magnesium 1.8 Total Bilirubin 0.9 AST 17 ALT 18 Alkaline Phosphatase 66 Troponin I Total Protein 5.7 L Albumin 3.1 L Alcohol, Quantitative ASSESSMENT/PLAN: 88 year old female, history of multiple falls in the past secondary to gait instability presents with mechanical fall. Was admitted to rule out syncopal causes for fall. Patient was seen by our Cardiology service in which cardiac causes of fall were ruled out. Patient started on Toprol XL 25mg daily as she was seen to have non-sustained runs of Vtach on overnight telemetry monitoring. Patient was also found to have bilateral pneumonia in which antibiotics were started. Patient gait evaluated by physical therapy team, and decision made for patient to receive physical therapy at home as patient refused rehab placement. Plan : #Mechanical fall cardiac causes for syncope ruled out Discharge home with family with home [facility] services PT at home for gait instability Supplement calcium and vitamin D with Os-Silvio 1 tab twice a day Follow up with PCP in 1 week Follow up with Dr. Beck [facility] in 1 week #Pneumonia Improving, continue PO antibiotic medications Follow up with PCP 1 week #HFpEF Start Toprol XL 25mg daily Heart healthy diet, salt restriction Follow up with Cardiology 1 week #Anxiety Continue home Ativan 0.5mg TID, family aware of fall risk they want to continue it despite fall risk Follow up with outpatient psychiatrist #Depression Continue Zoloft, Trazodone Discharge medications: Toprol XL 25mg daily Os-silvio calcium/vitamin D supplements 1 tab twice a day Vantin 100mg twice a day x5 days Doxycycline 100mg twice a day x3 days Continue all home medications.
--- NOTE | 2019-07-08 16:15 | DS ---
Physical Exam: 88 year old female with history of anxiety, depression, prior Etoh abuse presents admitted for questionable syncopal episode v.s. mechanical fall. Patient was getting up from toilet until she lost balance and fell striking the right side of her face. Patient has a history of falls in the past. Throughout hospital course patient was seen by patient doing well this morning, denies SOB or chest pain, awaiting cardiology evaluation. Spoke to the family in regards to Lorazepam use for anxiety, they understand the risk of continued falls while on this medication and they spoke to her outpatient psychiatrist who also warned them about the fall risk, family made decision to continue this medication despite the risk of falls. Vital Signs Period Temp Pulse Resp BP Sys/Da Silva Pulse Ox Last 24 Hr 97.8 F-98.7 F 73-88 18-22 134-163/41-63 93-95 PHYSICAL EXAM GENERAL: The patient is awake, alert, and oriented, in no acute distress, eating breakfast. HEAD: R maxillary swelling with bruising no active bleeding. EYES: EOMI, mild swelling R lateral ocular orbit with bruising. ENT: Ears normal, nares patent, oropharynx clear without exudates, moist mucous membranes. NECK: Trachea midline, full range of motion, supple. LUNGS: faint bibasilar crackles, good air entry b/l, moderate kyphosis noted. HEART: S1, S2+, RRR, KAMARI+ ABDOMEN: Soft, nontender, nondistended, normoactive bowel sounds, no guarding, no rebound. Thin body habitus. 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 Normal speech, gait not observed. PSYCH: Normal mood, normal affect. SKIN: Warm, dry, normal turgor, no rashes or lesions noted LABS Laboratory Results - last 24 hr 07/07/19 07/08/19 07/08/19 13:30 05:40 05:40 WBC 6.6 RBC 4.02 Hgb 12.4 Hct 36.2 MCV 90.0 MCH 30.9 MCHC 34.3 RDW 12.9 Plt Count 196 MPV 8.9 Absolute Neuts (auto) 4.5 Neutrophils % 67.8 Lymphocytes % 17.3 D Monocytes % 12.1 H Eosinophils % 1.5 D Basophils % 1.3 Nucleated RBC % 0 PT with INR 12.80 INR 1.08 PTT (Actin FS) 30.8 Sodium Potassium Chloride Carbon Dioxide Anion Gap BUN Creatinine Est GFR (CKD-EPI)AfAm Est GFR (CKD-EPI)NonAf Random Glucose Calcium Phosphorus Magnesium Total Bilirubin AST ALT Alkaline Phosphatase Troponin I < 0.02 Total Protein Albumin Alcohol, Quantitative < 3 07/08/19 05:40 WBC RBC Hgb Hct MCV MCH MCHC RDW Plt Count MPV Absolute Neuts (auto) Neutrophils % Lymphocytes % Monocytes % Eosinophils % Basophils % Nucleated RBC % PT with INR INR PTT (Actin FS) Sodium 133 L Potassium 3.7 Chloride 94 L Carbon Dioxide 32 Anion Gap 7 L BUN 13.6 Creatinine 0.4 L Est GFR (CKD-EPI)AfAm 109.31 Est GFR (CKD-EPI)NonAf 94.31 Random Glucose 73 L Calcium 8.9 Phosphorus 3.6 Magnesium 1.8 Total Bilirubin 0.9 AST 17 ALT 18 Alkaline Phosphatase 66 Troponin I Total Protein 5.7 L Albumin 3.1 L Alcohol, Quantitative Date of Admission:07/07/19 Date of Discharge: 07/08/19 Minutes to complete discharge: 40 Discharge Summary Problems reviewed: Yes Reason For Visit: SYNCOPE Current Active Problems Diastolic dysfunction (Acute) Neurologic gait dysfunction (Acute) Syncope (Acute) Hospital Course: ASSESSMENT/PLAN: 88 year old female history of anxiety, depression, prior Etoh dependence, with known history of multiple falls in the past secondary to gait instability presents with mechanical fall. Was admitted to rule out syncopal causes for fall. Patient was seen by our Cardiology service in which cardiac causes of fall were ruled out. Patient started on Toprol XL 25mg daily as she was seen to have non-sustained runs of Vtach on overnight telemetry monitoring. Patient was also found to have bilateral pneumonia in which antibiotics were started. Patient gait evaluated by physical therapy team, and decision made for patient to receive physical therapy at home as patient refused rehab placement. Plan : #Mechanical fall cardiac causes for syncope ruled out Discharge home with family with home [facility] services PT at home for gait instability Supplement calcium and vitamin D with Os-Daniele 1 tab twice a day Follow up with PCP in 1 week Follow up with Dr. Beck Cardiology in 1 week #Pneumonia Improving, continue PO antibiotic medications Follow up with PCP 1 week #HFpEF Start Toprol XL 25mg daily Heart healthy diet, salt restriction Follow up with Cardiology 1 week #Anxiety Continue home Ativan 0.5mg TID, family aware of fall risk they want to continue it despite fall risk Follow up with outpatient psychiatrist #Depression Continue Ashley Ambriz Discharge medications: Toprol XL 25mg daily Os-daniele calcium/vitamin D supplements 1 tab twice a day Vantin 100mg twice a day x5 days Doxycycline 100mg twice a day x3 days Continue all home medications. - Instructions Diet, Activity, Other Instructions: Please finish your antibiotic course as prescribed which was sent to [facility] pharmacy. You were also started on Toprol XL 25mg daily for your heart, please take this medication once daily and follow up with the assisted living home director in 1 week. You will be getting home physical therapy for gait training. Please follow up with your primary care doctor. If you feel short of breath, chest pain, dizziness or experience a fall please go to the emergency department. Referrals: Benny Beck MD [Staff Physician] - 1 Week (88 F with history of HFpEF admitted for CHFE, had a few non-sustained beats of NSVT on overnight telemetry for cardiology follow up. ) Disposition: VNS/HOME HEALTH CARE - Home Medications Comprehensive Discharge Medication List: Ambulatory Orders LORazepam [Lorazepam] 0.5 mg PO TID 07/07/19 Sertraline HCl 50 mg PO DAILY 07/07/19 traZODone HCL [Trazodone HCl] 50 mg PO DAILY 07/07/19 Acetaminophen [Tylenol .Extra-Strength -] 1,000 mg PO Q6H PRN #0 tablet Calcium 500Mg/Vit-D 200 Units [Os-Daniele 500+D -] 1 tab PO BID 30 Days #60 tab Cefpodoxime Proxetil [Vantin (Nf) -] 100 mg PO BID #10 tablet 07/08/19 Doxycycline Hyclate 100 mg PO BID 3 Days #6 tablet 07/08/19 Metoprolol Succinate [Toprol XL -] 25 mg PO DAILY 30 Days #30 tab.sr.24h This patient is new to me today: No Emergency Visit: Yes ED Registration Date: 07/07/19 Care time: The patient presented to the Emergency Department on the above date and was hospitalized for further evaluation of their emergent condition. Critical Care patient: No - Discharge Referral Referred to [facility] No
[2019-07-08] MEDS: traZODone HCL 50 MG TABLET (FP) PO SCH (21:27)
[2019-07-08] MEDS: LIDOCAINE PATCH REMOVAL MC SCH (22:34)
[2019-07-09] MEDS: LORazepam 0.5 MG TABLET PO SCH ×2 (06:40→07:43)
[2019-07-09] MEDS: ACETAMINOPHEN 500 MG TABLET (FP) PO PRN (06:41)
[2019-07-09 09:10] VITALS: BP 160/52; PULSE 78; TEMP 97.8
[2019-07-09] MEDS ORDERED: PT OWN MED DRAWER 7, Y5N ONE (09:35)
[2019-07-09] MEDS ORDERED: DEXTROSE 5%-WATER 100 ML IVPB ONE (09:36)
[2019-07-09] MEDS ORDERED: DOXYCYCLINE HYCLATE 100 MG VIAL ONE (09:36)
[2019-07-09] MEDS: CALCIUM 500MG/VIT-D 200 UNITS COMBO TABLET (FP) PO SCH (09:38)
[2019-07-09] MEDS: DOXYCYCLINE INJECTION 100 MG in DEXTROSE 5%-WATER 100 ML IVPB SCH (09:38)
[2019-07-09] MEDS: SERTRALINE HCL 50 MG TABLET (FP) PO SCH (09:39)
[2019-07-09] MEDS: metoPROLOL SUCCINATE 25 MG TAB.SR.24H (FP) PO SCH (09:39)
--- NOTE | 2019-07-09 13:24 | PN ---
Progress Note (short form) - Note Progress Note: Patient seen and examined with son at bedside. Not discharged yesterday because she needed home health care to be set up. Will go homw today. She denies nausea vomiting fever chills chest pain or SOB. no significant events on tele overnight. On exam she is alert and awake. RRR on cardiac exam with 4/6 systolic murmur best heard at RUSB. decreased breath sounds and poor air entry bilaterally with very faint crackles at the bases. abd is soft non tender non distended. no edema. right side of the face with sutures C/D/I. Right humeral bruising resolving. 88F s/p fall found to have 4 runs of NSVT on tele now on metoprolol without symptoms today. Also found to have Sensitive E. Coli UTI and pneumonia on imaging studies. Discharge on Augmentin and metoprolol. Resume home meds Please see discharge summary done 07/08/19 for more information. Informed son about follow up for suture removal and ENT. States his is a surgeon and she will remove sutures Visit type - Emergency Visit Emergency Visit: Yes ED Registration Date: 07/07/19 Care time: The patient presented to the Emergency Department on the above date and was hospitalized for further evaluation of their emergent condition. - New Patient This patient is new to me today: Yes Date on this admission: 07/09/19 - Critical Care Critical Care patient: No - Discharge Referral Referred to [facility] No
== END 2019-07-09 15:08 | disposition home health service (06) | DRG 193 ==
LOC: JER 05:06 → JERBED 11:28 → J4W 20:43 → JERBED 20:49 → J4W 20:50 → UNDODISIN 07-08 20:00
PROVIDERS: ADMIT Internal Medicine; ATTEND Internal Medicine
DX: J18.9 Pneumonia, unspecified organism (principal); I50.33 Acute on chronic diastolic (congestive) heart failure; S22.32XA Fracture of one rib, left side, initial encounter for closed fracture; S02.40CA Maxillary fracture, right side, initial encounter for closed fracture; J98.11 Atelectasis; N39.0 Urinary tract infection, site not specified; I47.2 Ventricular tachycardia; S01.81XA Laceration without foreign body of other part of head, initial encounter; F32.9 Major depressive disorder, single episode, unspecified; R55 Syncope and collapse; R26.9 Unspecified abnormalities of gait and mobility; F10.20 Alcohol dependence, uncomplicated; W19.XXXA Unspecified fall, initial encounter; Y93.9 Activity, unspecified; Y92.003 Bedroom of unspecified non-institutional (private) residence as the place of occurrence of the external cause; Y99.8 Other external cause status; I11.0 Hypertensive heart disease with heart failure; R29.6 Repeated falls; F41.9 Anxiety disorder, unspecified; B96.20 Unspecified Escherichia coli [E. coli] as the cause of diseases classified elsewhere
CPT/HCPCS: 36415; 70450-TC; 71045-TC-FY; 71250-TC; 72125-TC; 73030-TC-RT-FY; 73060-TC-RT-FY; 73523-TC-FY; 73552-TC-RT-FY; 80053; 80307; 81003; 82550; 82553; 83735; 83880; 84100; 84443; 84484; 85025; 85610; 85730; 87077; 87086; 87186; 93005; 93010; 93306-TC; 93880-TC; 97116-GP; 97161-GP; 99285-25; J0131

== ENCOUNTER 2019-07-11 21:17 | Inpatient (IN) | payer OTHER, BC ==
[2019-07-11] MEDS ORDERED: RAPID SEQUENCE INTUBATION KIT NR ONE (21:36)
[2019-07-11 21:54] LABS: ARTERIAL BLD GAS O2 SATURATION 92.5 % (95-98); ARTERIAL BLOOD GAS BASE EXCESS -8.7 meq/l (-2-2)
[2019-07-11 22:06] LABS: ARTERIAL BLOOD GAS PO2 97.7 mmHg (80-100)
[2019-07-11 22:08] LABS: ALLENS TEST POSITIVE
[2019-07-11 22:10] LABS: CARBOXYHEMOGLOBIN < 0.5 % (0-2)
[2019-07-11] MEDS ORDERED: fentaNYL CITRATE 250 MCG/5 ML VIAL ONE (22:10)
[2019-07-11 22:13] LABS: ARTERIAL BLOOD GAS PCO2 88.4 mmHg (35-45); ARTERIAL BLOOD GAS pH 7.07 (7.35-7.45)
--- NOTE | 2019-07-11 22:45 | PDOC ---
Attending Attestation - Resident Resident Name: Gayatri Alegria - ED Attending Attestation I have performed the following: I have examined & evaluated the patient, The case was reviewed & discussed with the resident, I agree w/resident's findings & plan - HPI HPI: 07/12/19 19:42 see resident hpi - Physicial Exam PE: 07/12/19 19:42 agree with resident exam - Critical Care Time Total Critical Care Time: 120 Critical Care Statement: The care of this patient involved high complexity decision making to prevent further life threatening deterioration of the patient 's condition and/or to evaluate & treat vital organ system(s) failure or risk of failure. - Medical Decision Making 07/12/19 19:42 88-year-old female brought in with altered mental status and respiratory distress After conversation with the family who was eventually at bedside patient was maintained is a full code, patient intubated due to increasing respiratory distress hypoxia and inability to protect airway Central line access was established due to decreasing blood pressures A right subclavian was inserted using ultrasound guidance after examination of anatomy this was determined to be the most reasonable site Due to a small resulting pneumothorax a 20 right-sided chest tube was inserted CT scans of the head and chest were obtained with no acute intracranial abnormality, 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
--- NOTE | 2019-07-11 23:50 | CONSULT ---
Consultation: REQUESTING PROVIDER: CONSULT REQUEST: We have been asked to medically evaluate this patient for ( specify). 88y/o F hx of depression,HtN, recurrent falls recently diagnosed diastolic dysfunction and CCA stenosis. Was discharged 2 days ago after being treated for UTI and pneumonia s/p fall at home. Her hx of frequent falls has led to subdural hematoma s/p craniotomy 6 years ago and ORIF for hip fracture. Patient had been recovering well, but family noticed yesterday that she had increased orthopnea and would not lie flat. Today at around 9pm, home health aide tried to wake her and found her unable to talk and not responding and alerted EMS. She arrived to the ED with sat of 95% on non-rebreather and became hypoxic after a few minutes and the ED team intubated. At the time of this evalutaion, central line placement is being attempted. family denies any recent falls, fevers, chills since hospital discharge. Last hospital course was notable for the following findings 1.)Right Rib Fractures (2) Lateral Wall Right Maxillary Sinus nondisplaced Fracture with hemorrhagic air fluid level (3) Leuk Est. 1+ findings of 50-69% CCA stenois Echo: normal biventricular size and fxn, mod AR, mild TR and mod pulm HTn diastolic dysfunction. PmH: diastoli HF. aortic stenosis Meds: zoloft, trazodone, lorazepam Allergies: NKDA PSHx: Craniotomy, Appendectomy, tonsillectomy REVIEW OF SYSTEMS: ltd could not perform, pt intubated and sedated PHYSICAL EXAMINATION Vital Signs - 24 hr 07/11/19 07/11/19 21:24 22:20 Pulse Rate 68 Respiratory 28 H 20 Rate Blood Pressure 129/48 L O2 Sat by Pulse 93 L Oximetry (%) GENERAL: Intubated and given fentanyl for sedation,still appears somewhat alert. thin appearing female HEAD: Normal with no signs of trauma. EYES: Pupils equal, round and reactive to light, sclera anicteric, conjunctiva clear. No lid lag. EARS, NOSE, THROAT: Ears normal, nares patent, oropharynx clear without exudates. Moist mucous membranes. NECK: Normal range of motion, supple without lymphadenopathy, JVD, or masses. LUNGS: Breath sounds equal, and clear to ausculatation bilaterally HEART: Regular rate and rhythm, normal S1 and S2 without murmur, rub or gallop. ABDOMEN: Soft, not distended, normoactive bowel sounds, no guarding, no rebound , no masses. No hepatomegaly or splenomegaly. MUSCULOSKELETAL: No bony deformities or tenderness. UPPER EXTREMITIES: 2+ pulses, warm, well-perfused. No cyanosis. No clubbing. Cap refill <2 seconds. 1+ edema LOWER EXTREMITIES: 2+ pulses, warm, well-perfused. No calf tenderness. No peripheral edema. NEUROLOGICAL: Pt intubated with fentanl on board. PSYCHIATRIC:Intubated SKIN: Warm, dry, normal turgor, no rashes or lesions noted. central line placed in right subclavian vein. Laboratory Results - last 24 hr 07/11/19 07/11/19 07/11/19 20:55 20:55 21:31 Anticoagulation Therapy No Result Required. Puncture Site Left radial ABG pH 7.07 L* ABG pCO2 at Pt Temp 88.4 H* ABG pO2 at Pt Temp 97.7 ABG HCO3 24.4 ABG O2 Sat (Measured) 92.5 L ABG O2 Content 92.5 ABG Base Excess -8.7 L Roshan Test Positive Carboxyhemoglobin < 0.5 Methemoglobin < 1.0 O2 Delivery Device Nrb Oxygen Flow Rate 100% Vent Mode No Result Required. Vent Rate No Result Required. Mechanical Rate No Result Required. Pressure Support Vent No Result Required. POC Glucometer 199 ASSESSMENT/PLAN: 88y/o F hx of depression,HtN, recurrent falls recently diagnosed diastolic dysfunction and CCA stenosis. Was discharged 2 days ago after being treated for UTI and pneumonia s/p fall at home. presented with shortness of breath and found to be hypoxic on non-rebreather mask significant labs/findings/ED course Head CT: no acute intracranial process. chronic subdural hematoma s/p craniotomy with fracture of maxillary sinus s/p last hospital stay. chest CT after placement of central line showed a pneumothorax, patchy infiltrates and atelactasis chest tube placed in the ED on the right. EKG:NSR, right axis deviation, incomplete right bundle branch bloc. T wave abnormality troponin elevated to 0.88 #acute respiratory distress r/o aspiration pneumonia * Intubated and will receive antibiotics #sepsis likely secondary to pneumonia #Lactic Acidosis 2.7 trend * monitor in the ICU * intubated and sedated * vent settings tidal volume 350, PEEP of 5 * given 1 dose of ceftriaxone 1g. zosyn d/c and vancomycin * maintain blood pressure MAP above 65 on pressors (levophed) * maintain O2 saturation above 90 * cunningham culture blood urine and sputum * cbc, cmp, mg, phosphorus, monitoring and evaluation advisor for any prolonged Qtc * Hold blood pressure meds for now in term of sepsis * 2L bolus of fluid and then maintenance at a 100cc/hr * Echo from last visit normal biventricular size and fxn, mod AR, mild TR and mod pulm HTn #Elevated Troponin - trend troponin -repeat EKG # Gait dyfunction with recurrent mechanical falls * will benefit from PAPO upon discharge #Diastolic CHF * normal EF * continue IVF * consult cardiology * elevated troponin. Cards recommendation treat for sepsis #Depression and Anxiety * continue trazodone and zoloft when able to tolerate PO/OGT #Rib fractures * conservative management #DVT prophylasix * consider GI prophylasix after day 2 in ICU #Pneumothorax s/p subclavian central line placement - chest tube placed on the right in the ED - repeat CXR #HARJINDER -monitor BUN/Cr -IVF #Hyponatremia monitor electrolytes #Transaminitis #Right elbow ecchymosis -elbow x-ray Dispo: We will continue to follow the patient. Thank you for this consultative opportunity. Visit type - Emergency Visit Emergency Visit: Yes ED Registration Date: 07/11/19 Care time: The patient presented to the Emergency Department on the above date and was hospitalized for further evaluation of their emergent condition. - New Patient This patient is new to me today: No - Critical Care Critical Care patient: No ATTENDING PHYSICIAN STATEMENT I saw and evaluated the patient. I reviewed the resident's note and discussed the case with the resident. I agree with the resident's findings and plan as documented. SUBJECTIVE: OBJECTIVE: ASSESSMENT AND PLAN:
[2019-07-11] MEDS ORDERED: CEFTRIAXONE 1 GM in DEXTROSE 5%-WATER - 100 ML IVPB ONE (23:58)
[2019-07-11] MEDS ORDERED: SODIUM CHLORIDE 500 ML IV STA (23:58)
--- NOTE | 2019-07-12 00:16 | PDOC ---
History of Present Illness - General Chief Complaint: Shortness of Breath Stated Complaint: LABORED BREATHING Time Seen by Provider: 07/11/19 22:45 History Source: Care Provider, EMS, Family, Old Records Exam Limitations: Unresponsive - History of Present Illness Initial Comments: 07/12/19 01:10 88y F with PMH of HTN, Depression, and diastolic CHF BIBA by EMS from home for respiratory distress. Per home economics teacher patient suddenly did not appear well and she called EMS. Patient was recently here 4d ago for syncopal episode and admitted. Family states patient was well this AM. Upon arrival, patient was tachypneic. She was not obeying commands or stating her name, not protecting airway. Family was consented for intubation. PMD: Kaela PMH: see hpi Meds: metoprolol, trazodone, lorazepam, sertraline Allergies: nkda Past History - Past Medical History Allergies/Adverse Reactions: Allergies Allergy/AdvReac Type Severity Reaction Status Date / Time No Known Allergies Allergy Verified 07/11/19 21:31 Home Medications: Ambulatory Orders LORazepam [Lorazepam] 0.5 mg PO TID 07/07/19 Sertraline HCl 50 mg PO DAILY 07/07/19 traZODone HCL [Trazodone HCl] 50 mg PO DAILY 07/07/19 Acetaminophen [Tylenol .Extra-Strength -] 1,000 mg PO Q6H PRN #0 tablet Calcium 500Mg/Vit-D 200 Units [Os-Silvio 500+D -] 1 tab PO BID 30 Days #60 tab Metoprolol Succinate [Toprol XL -] 25 mg PO DAILY 30 Days #30 tab.sr.24h Amox-Tr/K Cl [Augmentin - 875Mg Tablet] 1 tab PO BID #14 tablet 07/09/19 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.) COPD: No CHF: Yes DVT: No HTN: Yes - Surgical History Appendectomy: Yes - Immunization History Immunization Up to Date: Yes - Psycho Social/Smoking Cessation Hx Smoking Status: No Smoking History: Unknown if ever smoked Have you smoked in the past 12 months: No Number of Cigarettes Smoked Daily: 0 Hx Alcohol Use: No Drug/Substance Use Hx: No Substance Use Type: None Review of Systems - Review of Systems Able to Perform ROS?: No *Physical Exam - Vital Signs Last Vital Signs Temp Pulse Resp BP Pulse Ox 66 20 130/39 L 100 07/11/19 21:40 07/11/19 22:20 07/11/19 21:40 07/11/19 22:00 - Physical Exam General Appearance: Yes: Moderate Distress, Thin HEENT: positive: JOHNNIE, Other (dry membranes) Neck: positive: Trachea midline, Supple. negative: Carotid bruit, Lymphadenopathy (R), Lymphadenopathy (L) Respiratory/Chest: positive: Respiratory Distress, Accessory Muscle Use, Labored Respiration, Decreased Breath Sounds. negative: Crackles, Rhonchi, Stridor, Wheezing, Plerual Rub Cardiovascular: positive: Tachycardia, Systolic Murmur (systolic, heard at apex) Vascular Pulses: Dorsalis-Pedis (R): 2+, Doralis-Pedis (L): 2+ Gastrointestinal/Abdominal: positive: Normal Bowel Sounds, Soft. negative: Tenderness, Mass Extremity: negative: Pedal Edema, Swelling, Calf Tenderness, Erythema Integumentary: positive: Normal Color, Dry, Warm, Ecchymosis (on R side of face with stitches on eyebrow. bruising on arms bilaterally) Neurologic: positive: Respond to painful stimul. negative: coal shooter II-XII NML intact (unable to assess), Fully Oriented, Alert, Motor Strength 5/5 Procedures - Central Line Central Line Lumen: triple Central Line Position: subclavian (R) Complications: none Post Central Line Insertion: sutured, good blood return, position confirmed w/ CXR Progress: 07/12/19 00:17 R sided subclavian line placed with Salinger technique, sterile conditions and ultrasound guidance. Good blood which appeared venous. return and wire was advanced without resistance. triple lumen line inserted with good blood return. Confirmed by cxr and ultrasound. - Intubation Intubation Method: orotracheal Blade used: Mac Tube Size (Fr): 7.0 Medications: Etomidate, Rocuronium Tube position @ lip (cm): 20 Tube position confirmed by: Direct visualization, CO2 detector, Chest x-ray, Breath sounds Intubation Complications: no complications Post Intubation Xray: Yes ED Treatment Course - LABORATORY CBC & Chemistry Diagram: 07/12/19 01:31 07/12/19 01:31 - ADDITIONAL ORDERS Additional order review: Laboratory Results 07/11/19 07/11/19 07/11/19 21:31 20:55 20:55 Anticoagulation Therapy No Result Required. Puncture Site Left radial ABG pH 7.07 L* ABG pCO2 at Pt Temp 88.4 H* ABG pO2 at Pt Temp 97.7 ABG HCO3 24.4 ABG O2 Sat (Measured) 92.5 L ABG O2 Content 92.5 ABG Base Excess -8.7 L Roshan Test Positive Carboxyhemoglobin < 0.5 Methemoglobin < 1.0 O2 Delivery Device Nrb Oxygen Flow Rate 100% Vent Mode No Result Required. Vent Rate No Result Required. Mechanical Rate No Result Required. Pressure Support Vent No Result Required. POC Glucometer 199 07/11/19 21:31 POC Glucometer 199 - RADIOLOGY Radiology Studies Ordered: Category Date Time Status CHEST CT WITHOUT CONTRAST [CT] Stat CT Scan 07/12/19 00:00 Ordered Medical Decision Making - Medical Decision Making 07/12/19 07:09 88y F with PMH of htn, chf, depression BIBA by EMS for respiratory distress. patient placed on NRB and was saturating well. patient was difficult stick and while obtaining access, patient started to desaturate. patient was intubated with etomidate and aakash. 7.0 tube used, DL. post xray shows tube in trachea, above kathy. patient then started to become hypotensive and bolus was given. R subclavian was placed under supervision of Dr. Klein and Dr. Chappell. attempted blind but then ultrasound was used. CT head, CT chest, CXR, sepsis w/u, ABG. ABG shows hypercapnic respiratory failure. rpt abg shows improvement. labs significant for wbc 16, lactic acid and elevated bun/cr and trop 0.88 likely 2/2/ demand. harjinder, hyponatremia (baseline) ekg: no bettina or depressions. will admit to icu started on rocephin for possible pna. line complicated by pneumothorax, 20 F chest tube placed by Dr. Chappell. Will start vanc/ zosyn to cover. CT head: no new changes from prior CT, stable SDH. Discharge - Discharge Information Problems reviewed: Yes Clinical Impression/Diagnosis: HARJINDER (acute kidney injury) Respiratory failure Qualifiers: Chronicity: acute Respiratory failure complication: hypoxia and hypercapnia Qualified Code(s): J96.01 - Acute respiratory failure with hypoxia Condition: Stable - Admission Yes - Follow up/Referral - Patient Discharge Instructions - Post Discharge Activity
[2019-07-12] MEDS: FENTANYL INJECTION 500 MCG in DEXTROSE 5%-WATER - 90 ML IVPB SCH ×3 (00:30→12:43)
[2019-07-12 01:11] LABS: EPI CELLS 2.4 /HPF (0-5/HPF); HYALINE CASTS 21 /lpf (0-8); URINE APPEARANCE CLOUDY; URINE BILIRUBIN NEGATIVE (NEGATIVE); URINE COLOR YELLOW; URINE GLUCOSE (UA) NEGATIVE (NEGATIVE); URINE KETONE NEGATIVE (NEGATIVE); URINE LEUK ESTERASE NEGATIVE (NEGATIVE); URINE NITRITE NEGATIVE (NEGATIVE); URINE PROTEIN 1+ (NEGATIVE); URINE RBC 3 /hpf (0-4); URINE WBC 1 /hpf (0-5)
[2019-07-12 01:33] LABS: ARTERIAL BLD GAS O2 SATURATION 99.7 % (95-98); ARTERIAL BLOOD GAS BASE EXCESS -1.6 meq/l (-2-2); ARTERIAL BLOOD GAS pH 7.41 (7.35-7.45)
[2019-07-12 01:37] LABS: ALLENS TEST POSITIVE
[2019-07-12 01:43] LABS: ARTERIAL BLOOD GAS PO2 339 mmHg (80-100)
[2019-07-12] MEDS ORDERED: CEFTRIAXONE 1 GM/50 ML BAG ONE (01:48)
[2019-07-12 02:16] LABS: BASO % 0.6 % (0-2.0); HEMOGLOBIN 12.5 GM/dL (10.7-15.3); LYMPH % 11.6 % (8-40); MCH 30.2 pg (25.7-33.7); MCHC 33.7 g/dl (32.0-36.0); MEAN CELL VOLUME 89.7 fl (80-96); MEAN PLT VOLUME 9.9 fl (7.5-11.1); MONO % 5.9 % (3.8-10.2); NEUT % 81.9 % (42.8-82.8); RBC 4.13 M/mm3 (3.60-5.2); RDW 13.3 % (11.6-15.6); WHITE BLOOD COUNT 16.2 K/mm3 (4.0-10.0)
[2019-07-12 02:57] LABS: BILIRUBIN,TOTAL 1.1 mg/dL (0.2-1); CALCIUM 7.8 mg/dL (8.5-10.1); CREATININE 1.6 mg/dL (0.55-1.3); POTASSIUM 4.5 mmol/L (3.5-5.1); TOT PROT 5.2 g/dl (6.4-8.2)
--- NOTE | 2019-07-12 02:57 | HP ---
CHIEF COMPLAINT: Altered mental status, acute respiratory failure PCP:Kaela HISTORY OF PRESENT ILLNESS: 88 yo F PMH of HFpEF, HTN, depression, right CCA stenosis recently admitted to [facility] ( d/c on 07/10) BIBEMS for altered mental status. PT was recently admitted to [facility] 08/28. She was worked up for pneumonia and UTI and discharged with Doxycycline and cefpodoxime. Cardiology evaluated the pt and started the toprol XL 25 mg for HFpEF. Family reports that pt has been compliant with medications since discharge. on Thursday evening approx at 9 pm, home health aid noticed that pt was acting unusual, not verbally responsive and called EMS. EMT noted pt to desaturate ~80% with NC O2. While in the ED, pt was seen dyspneic, using accessory muscles of respirations and while on non-rebreather mask began to desaturate to 70s. pt was intubated. R subclavian central line was placed in ED. family states that pt was intubated in the past for heart failure exacerbation. ER course was notable for: (1)intubated, Vent settings: (2)R subclavian placement (3) x1 ceftriaxone (4) Head CT : negative for acute intracranial pathology (5) Chest CT:Small right pneumothorax, approximately 10-15%Small bilateral pleural effusions with bilateral compression atelectasis, Patchy infiltrates within the right upper lobe Recent Travel: denies PAST MEDICAL HISTORY: HFpEF, HTN, R CCA stenosis, depression, anxiety, Hx of Alcohol abuse, Subdural hematoma (2013) PAST SURGICAL HISTORY: appendectomy (> 50 y ago), tonsillectomy, ORIF (2016) Social History: Smoking:denies Alcohol:Hx of alcohol abuse, currently on lorazepam Drugs: denies Allergies No Known Allergies Allergy (Verified 07/11/19 21:31) HOME MEDICATIONS: Home Medications Medication Instructions Recorded LORazepam [Lorazepam] 0.5 mg PO TID 07/07/19 Sertraline HCl 50 mg PO DAILY 07/07/19 traZODone HCL [Trazodone HCl] 50 mg PO DAILY 07/07/19 Acetaminophen [Tylenol 1,000 mg PO Q6H PRN #0 tablet 07/08/19 .Extra-Strength -] Calcium 500Mg/Vit-D 200 Units 1 tab PO BID 30 Days #60 tab 07/08/19 [Os-Silvio 500+D -] Metoprolol Succinate [Toprol XL -] 25 mg PO DAILY 30 Days #30 07/08/19 tab.sr.24h Amox-Tr/K Cl [Augmentin - 875Mg 1 tab PO BID #14 tablet 07/09/19 Tablet] REVIEW OF SYSTEMS: unable to obtain as pt is intubated. pt's family at bedside states that she had no complaints when at home. PHYSICAL EXAMINATION Vital Signs - 24 hr 07/11/19 07/11/19 07/11/19 21:24 21:40 22:00 Pulse Rate 68 Pulse Rate [ 66 Left] Respiratory 28 H 25 H 16 Rate Blood Pressure 129/48 L Blood Pressure 130/39 L [Right Arm] O2 Sat by Pulse 93 L 93 L 100 Oximetry (%) 07/11/19 07/11/19 07/12/19 22:10 22:20 00:32 Pulse Rate Pulse Rate [ 62 Left] Respiratory 23 H 20 20 Rate Blood Pressure Blood Pressure 84/39 L [Right Arm] O2 Sat by Pulse Oximetry (%) GENERAL: Awake, responds to tactile stimuli. HEAD: R forehead laceration repair with stitches present. R maxillary ecchymosis EYES: Pupils equal, round and reactive to light, conjunctiva clear. EARS, NOSE, THROAT:pt is intubated, nares patent NECK: + JVD LUNGS: Vent sounds present b/l, RLL rhonchi. HEART: irregular rate and rhythm ABDOMEN: Soft, mildly distended, normoactive bowel sounds. UPPER EXTREMITIES: 2+ pulses, warm, well-perfused. No cyanosis. No clubbing. R elbow echymosis LOWER EXTREMITIES: 2+ pulses, warm, well-perfused. 2+ peripheral edema b/l . SKIN: Warm, dry, normal turgor, no rashes or lesions noted, normal capillary refill. Laboratory Last Values WBC 16.2 K/mm3 (4.0-10.0) H 07/12/19 01:31 Corrected WBC (auto) Cancelled 07/12/19 00:10 RBC 4.13 M/mm3 (3.60-5.2) 07/12/19 01:31 Hgb 12.5 GM/dL (10.7-15.3) 07/12/19 01:31 Hct 37.0 % (32.4-45.2) 07/12/19 01:31 MCV 89.7 fl (80-96) 07/12/19 01:31 MCH 30.2 pg (25.7-33.7) 07/12/19 01:31 MCHC 33.7 g/dl (32.0-36.0) 07/12/19 01:31 RDW 13.3 % (11.6-15.6) 07/12/19 01:31 Plt Count Cancelled 07/12/19 00:10 MPV 9.9 fl (7.5-11.1) D 07/12/19 01:31 Absolute Neuts (auto) 13.3 K/mm3 (1.5-8.0) H 07/12/19 01:31 Neutrophils % 81.9 % (42.8-82.8) D 07/12/19 01:31 Lymphocytes % 11.6 % (8-40) D 07/12/19 01:31 Monocytes % 5.9 % (3.8-10.2) 07/12/19 01:31 Eosinophils % 0.0 % (0-4.5) D 07/12/19 01:31 Basophils % 0.6 % (0-2.0) 07/12/19 01:31 Nucleated RBC % 0 % (0-0) 07/12/19 01:31 Platelet Estimate Cancelled 07/12/19 00:10 Platelet Comment Cancelled 07/12/19 00:10 PT with INR Cancelled 07/12/19 00:11 INR Cancelled 07/12/19 00:11 PTT (Actin FS) Cancelled 07/12/19 00:11 Anticoagulation Therapy No Result Required. 07/12/19 01:14 Puncture Site Left radial 07/12/19 01:14 ABG pH 7.41 (7.35-7.45) 07/12/19 01:14 ABG pCO2 at Pt Temp 36.0 mmHg (35-45) 07/12/19 01:14 ABG pO2 at Pt Temp 339 mmHg (80-100) H 07/12/19 01:14 ABG HCO3 22.1 mmol/L (22-27) 07/12/19 01:14 ABG O2 Sat (Measured) 99.7 % (95-98) H 07/12/19 01:14 ABG O2 Content No Result Required. 07/12/19 01:14 ABG Base Excess -1.6 meq/l (-2-2) 07/12/19 01:14 Roshan Test Positive 07/12/19 01:14 Carboxyhemoglobin No Result Required. 07/12/19 01:14 Methemoglobin < 1.0 % (0-2) 07/12/19 01:14 O2 Delivery Device Vent 07/12/19 01:14 Oxygen Flow Rate 100% 07/12/19 01:14 Vent Mode A/c 07/12/19 01:14 Vent Rate 20 07/12/19 01:14 Mechanical Rate Yes 07/12/19 01:14 PEEP 5.0 cmH2O 07/12/19 01:14 Pressure Support Vent 350 07/12/19 01:14 Sodium 127 mmol/L (136-145) L 07/12/19 01:31 Potassium 4.5 mmol/L (3.5-5.1) 07/12/19 01:31 Chloride 89 mmol/L (98-107) L 07/12/19 01:31 Carbon Dioxide 26 mmol/L (21-32) 07/12/19 01:31 Anion Gap 12 MMOL/L (8-16) 07/12/19 01:31 BUN 39.0 mg/dL (7-18) H 07/12/19 01:31 Creatinine 1.6 mg/dL (0.55-1.3) H 07/12/19 01:31 Est GFR (CKD-EPI)AfAm 33.47 07/12/19 01:31 Est GFR (CKD-EPI)NonAf 28.88 07/12/19 01:31 POC Glucometer 199 UNITS (80-120) 07/11/19 21:31 Random Glucose 111 mg/dL (74-106) H 07/12/19 01:31 Lactic Acid 2.7 mmol/L (0.4-2.0) H* 07/12/19 00:11 Calcium 7.8 mg/dL (8.5-10.1) L 07/12/19 01:31 Total Bilirubin 1.1 mg/dL (0.2-1) H 07/12/19 01:31 AST 680 U/L (15-37) H 07/12/19 01:31 ALT 595 U/L (13-61) H 07/12/19 01:31 Alkaline Phosphatase 73 U/L (45-117) 07/12/19 01:31 Troponin I Cancelled 07/12/19 00:10 Total Protein 5.2 g/dl (6.4-8.2) L 07/12/19 01:31 Albumin 3.0 g/dl (3.4-5.0) L 07/12/19 01:31 Urine Color Yellow 07/12/19 00:11 Urine Appearance Cloudy 07/12/19 00:11 Urine pH 5.0 (5.0-8.0) D 07/12/19 00:11 Ur Specific [place] 1.019 (1.010-1.035) 07/12/19 00:11 Urine Protein 1+ (NEGATIVE) H 07/12/19 00:11 Urine Glucose (UA) Negative (NEGATIVE) 07/12/19 00:11 Urine Ketones Negative (NEGATIVE) 07/12/19 00:11 Urine Blood 1+ (NEGATIVE) H 07/12/19 00:11 Urine Nitrite Negative (NEGATIVE) 07/12/19 00:11 Urine Bilirubin Negative (NEGATIVE) 07/12/19 00:11 Urine Urobilinogen 1.0 mg/dL (0.2-1.0) 07/12/19 00:11 Ur Leukocyte Esterase Negative (NEGATIVE) 07/12/19 00:11 Urine WBC (Auto) 1 /hpf (0-5) 07/12/19 00:11 Urine RBC (Auto) 3 /hpf (0-4) 07/12/19 00:11 Urine Casts (Auto) 21 /lpf (0-8) 07/12/19 00:11 U Epithel Cells (Auto) 2.4 /HPF (0-5/HPF) 07/12/19 00:[address]: FINDINGS: Small right pneumothorax, approximately 10-15% Small bilateral pleural effusions with bilateral compression atelectasis Patchy infiltrates within the right upper lobe Status post intubation Cardiomegaly without evidence of a pericardial effusion The left hemithorax is small relative to the contralateral side with an accompanying leftward mediastinal shift Exaggeration of normal thoracic kyphosis with chronic anterior compression fractures of T6 and T7 Head CT: no acute intracranial pathology s/p craniotomy with fracture of maxillary sinus ASSESSMENT/PLAN: 88 yo F PMH of HFpEF, HTN, Depression/Anxiety, R CCA stenosis presents to ED for altered mental status and acute respiratory failure. Pt is admitted to ICU for sepsis. pt is intubated and sedated. Acute hypoxemic hypercapneic respiratory failure -pt intubated in ED. Vent Settings: 350,30,5, 100% AC. will adjust vent settings for low Tidal volumes (<6ml/kg ideal body weight), low PEEP -initial ABG prior to intubation showing respiratory acidosis w/ high A-a gradient ( 528): pH 7.07, pCO2 88.4, PO2 97.7 - rpt ABG improvin.41, pCO2 36, pO2: 339 - EKG: sinus rhythm, No ST-T wave depressions/elevations -r/o overdose, alcohol use multi-organ dysfunction 2/2 Sepsis -leukocytosis 16.2, lactate 2.7 - s/p 2L IV NS - s/p 1 g ceftriaxone in ED - will start cefepime, vancomycin - Maintain MAP >65% -BCx, UCx -trend lactate -Chest CT reviewed, see above. b/l pleural effusion w/ midline shift unchanged from prior Chest CT -ID recommendations appreciated - on propofol, fentanyl for sedation transaminitis likely 2/2 sepsis - AST/ ALT: 680, 595 - abdominal u/s -continue to trend Troponemia, r/o NSTEMI vs demand ischemia -trop 0.88 -EKG regular , no ST changes . pending repeat EKG - cardiology recommendations appreciated, discussed with cardiology. treat for sepsis - continue to trend -rpt Echo HARJINDER -Cr 1.6 ( 0.4 on 07/08) -s/p 2L IVF - renal / bladder U/S - monitor I/Os, daily weights Right pneumothorax - CT reviewed - surgery recs appreciated -chest tube placed in ED -rpt CXR HFpEF - pt evaluated by Dr. Beck on 07/07 - Echo (2018) shows EF 55-60% . will rpt Echo in setting of tropinemia -hold toprol in setting of sepsis - 07/07 BNP 880, rpt BNP >37374 - will hold diureses at this time due to low MAP HTN - hold antihypertensives in setting of sepsis UTI / pneumonia - UCulture from 07/07 shows Ecoli - continue cefepime, vosyn -ID recs appreciated Hx of Alcohol abuse r/o overdose , intox -pending Utox -pending Ethanol, ethylene glycol, methanol -hold lorazepam R elbow ecchymosis -pending elbow XR -humerus xr reviewed from 07/07 F/E/N - s/p 2L NS hyponatremia -Na 127, continue to monitor hypochloremia -monitor lytes -NPO DVT ppx: SCDs , avoid chemical ppx in setting of prior subdural hematoma Dispo: Admit to ICU . pt is critically ill. FULL CODE Next of Kin :iFdel Caldwell ( elsa) - [phone] Visit type - Emergency Visit Emergency Visit: Yes ED Registration Date: 07/11/19 Care time: The patient presented to the Emergency Department on the above date and was hospitalized for further evaluation of their emergent condition. - New Patient This patient is new to me today: Yes Date on this admission: 07/12/19 - Critical Care Critical Care patient: Yes Total Critical Care Time (in minutes): 36 Critical Care Statement: The care of this patient involved high complexity decision making to prevent further life threatening deterioration of the patient 's condition and/or to evaluate & treat vital organ system(s) failure or risk of failure. ATTENDING PHYSICIAN STATEMENT I saw and evaluated the patient. I reviewed the resident's note and discussed the case with the resident. I agree with the resident's findings and plan as documented. SUBJECTIVE: OBJECTIVE: ASSESSMENT AND PLAN:
[2019-07-12] MEDS ORDERED: ROCURONIUM BROMIDE 50 MG/5 ML VIAL IV ONE (03:08)
[2019-07-12] MEDS ORDERED: RAPID SEQUENCE INTUBATION KIT NR ONE (03:09)
[2019-07-12 03:14] LABS: PLATELET COUNT 180 K/MM3 (134-434)
[2019-07-12] MEDS ORDERED: PROPOFOL 1,000,000 MCG/100 ML VIAL ONE (03:40)
[2019-07-12] MEDS ORDERED: PROPOFOL 200 MG/20 ML VIAL IVPUSH ONE (03:40)
[2019-07-12] MEDS ORDERED: VANCOMYCIN 1 GM in D5W (PRE-DOCKED) 1,000 MG/250 ML IVPB ONE (03:42)
[2019-07-12] MEDS ORDERED: CEFEPIME HCL/D5W 1 GM/50 ML BAG IVPB SCH ×2 (03:45→10:00)
[2019-07-12] MEDS ORDERED: PIPERACILLIN/TAZOB 2.25 GM 2.25 GM in DEXTROSE 5%-WATER - 50 ML IVPB ONE (03:48)
[2019-07-12] MEDS ORDERED: VANCOMYCIN 1 GRAM (PRE-DOCKED) 1,000 MG/250 ML BAG IVPB ONE ×2 (03:53→04:30)
[2019-07-12] MEDS ORDERED: CEFEPIME 1 GM in DEXTROSE 5%-WATER 100 ML IVPB ONE (04:00)
[2019-07-12] MEDS ORDERED: PIPERACILLIN/TAZOB 3.375 GM 3.375 GM in DEXTROSE 5%-WATER - 50 ML IVPB ONE (04:15)
[2019-07-12 04:20] LABS: N-TERMINAL BNP 25143.1 pg/ml (5-450)
[2019-07-12] MEDS: PROPOFOL 1,000,000 MCG/100 ML VIAL IVPB SCH (05:00)
[2019-07-12] MEDS ORDERED: PIPERACILLIN/TAZOBACTAM 3.375 GM VIAL IVPB ONE (05:09)
[2019-07-12] MEDS ORDERED: DEXTROSE 5%-WATER - 50 ML IVPB ONE (05:10)
--- NOTE | 2019-07-12 05:31 | PN ---
Teaching Attending Note Name of Resident: Gayle Ferrell ATTENDING PHYSICIAN STATEMENT I saw and evaluated the patient. I reviewed the resident's note and discussed the case with the resident. I agree with the resident's findings and plan as documented. SUBJECTIVE: 88 yo F PMH of HFpEF, HTN, depression, Chronic right subdural hematoma, right CCA stenosis recently admitted to [facility] ( d/c on 07/10) Brought in by ambulance after she was found at her home with altered mental status. Patient was treated on prior admission for pneumonia and possible UTI. This time upon arrival to hospital she was found to be in severe respiratory distress and was desaturating on nonrebreather mask. Intubated for respiratory failure. Blood pressure initially was normal with normal heart rate and then sudden drop in blood pressure prompted placement of right subclavian central line. Head CT and chest CT were performed, this showed small right lung pneumothorax likely from central line placement. OBJECTIVE: Last Vital Signs Temp Pulse Resp BP Pulse Ox 98.2 F 62 20 104/62 100 07/12/19 05:07 07/12/19 05:07 07/12/19 05:07 07/12/19 05:07 07/12/19 05:07 GENERAL: Intubated, sedated, nontoxic-appearing, Thin, frail HEENT: ET tube was in place NECK: Supple. Full ROM. No JVD. Carotid pulses 2+ and symmetric, without bruits. No thyromegaly. No lymphadenopathy. CARDIOVASCULAR: Regular rate and rhythm. No murmurs, rubs, or gallops. Distal pulses are 2+ and symmetric. PULMONARY: No evidence of respiratory distress. Lungs clear to auscultation bilaterally. No wheezing, rales or rhonchi. ABDOMINAL: Soft. Non-tender. Non-distended. No rebound or guarding. No organomegaly. Normoactive bowel sounds. MUSCULOSKELETAL Right elbow ecchymosis appreciated EXTREMITIES: Bilateral lower extremity chronic venous stasis changes, 2+ pitting edema bilaterally up to mid shins SKIN: Warm and dry. Normal capillary refill. No rashes. No jaundice. NEUROLOGICAL: Sedated Abnormal Lab Results 07/11/19 07/12/19 07/12/19 20:55 00:11 00:11 WBC Absolute Neuts (auto) ABG pH 7.07 L* ABG pCO2 at Pt Temp 88.4 H* ABG pO2 at Pt Temp ABG O2 Sat (Measured) 92.5 L ABG Base Excess -8.7 L Sodium Chloride BUN Creatinine Random Glucose Lactic Acid 2.7 H* Calcium Total Bilirubin AST ALT Troponin I B-Natriuretic Peptide Total Protein Albumin Urine Protein 1+ H Urine Blood 1+ H 07/12/19 07/12/19 07/12/19 01:14 01:31 01:31 WBC 16.2 H Absolute Neuts (auto) 13.3 H ABG pH ABG pCO2 at Pt Temp ABG pO2 at Pt Temp 339 H ABG O2 Sat (Measured) 99.7 H ABG Base Excess Sodium 127 L Chloride 89 L BUN 39.0 H Creatinine 1.6 H Random Glucose 111 H Lactic Acid Calcium 7.8 L Total Bilirubin 1.1 H AST 680 H ALT 595 H Troponin I 0.88 H* B-Natriuretic Peptide 90539.1 H Total Protein 5.2 L Albumin 3.0 L Urine Protein Urine Blood Imaging studies reviewed Chest CT showed small [id number] to 15%, Left mediastinal shift which was present on the old chest CT from 07/[address] showed chronic right subdural hematoma EKG showed sinus rhythm Without any acute ischemic changes ASSESSMENT AND PLAN: Critically ill 88-year-old woman with hypercapnic hypoxemic respiratory failure status post intubationunknown cause but suspect possible drug overdose. Chest CT showed similar bilateral pleural effusions, when compared to chest CT from , no acute [employer]LOCK lesions appreciated on head CT. Initial ABG showed severe hypercapnia and high AA gradient which both improved completely on a repeat ABG.Suspect fluid overload on physical exam findings and high BNP, however would not diurese at this time due to labile blood pressure. Cannot rule out sepsis as patient had hypotension, lactic acidosis, leukocytosis. Suspect multiorgan dysfunction with troponin leak, transaminitis, acute kidney injury may be secondary to underlying sepsis versus severe hypoxia.Fluid overload may be in setting of acute cardiac myocardial dysfunction versus AKA.Electrolyte derangements evidenced by hyponatremia and hypochloremia in setting of fluid overload volume status. Suspect mixed etiology. Pneumothorax present on right chest likely secondary to central line placement and patient is status post chest tube placement. Admit to ICU Maintain on low tidal volume in setting of pneumothorax, about 6 mL's per KG. Would lowered sedation and attempt for early weaning as ABG has drastically improved. Monitor vital signs closely Trend troponin No antiplatelet therapy or anticoagulation at this time as patient has history of subdural hematoma and frequent falls Cardiology evaluation Transthoracic echo Blood cultures Trend lactate Empiric treatment with cefepime and vancomycin Infectious disease consultation Pulmonary evaluation Urine lites, osmolarity, serum osmolarity Monitor kidney function Avoid nephrotoxins Trend LFTs Avoid hepatotoxins Abdominal ultrasoundkidneys and liver Bedrest and fall precautions Will need PT evaluation Chest x-ray to ensure correct placement of chest tube and ensure that pneumothorax is not worsening X-ray of the right elbow to rule out fracture [place] catheter Once blood pressure stable would attempt diuresis DVT prophylaxis with SCDs
--- NOTE | 2019-07-12 06:58 | PDOC ---
*Physical Exam - Vital Signs Last Vital Signs Temp Pulse Resp BP Pulse Ox 97.9 F 67 16 113/45 L 100 07/12/19 06:09 07/12/19 06:09 07/12/19 06:34 07/12/19 06:09 07/12/19 05:07 ED Treatment Course - LABORATORY CBC & Chemistry Diagram: 07/12/19 01:31 07/12/19 01:31 - ADDITIONAL ORDERS Additional order review: Laboratory Results 07/11/19 07/11/19 07/11/19 21:31 20:55 20:55 Anticoagulation Therapy No Result Required. Puncture Site Left radial ABG pH 7.07 L* ABG pCO2 at Pt Temp 88.4 H* ABG pO2 at Pt Temp 97.7 ABG HCO3 24.4 ABG O2 Sat (Measured) 92.5 L ABG O2 Content 92.5 ABG Base Excess -8.7 L Roshan Test Positive Carboxyhemoglobin < 0.5 Methemoglobin < 1.0 O2 Delivery Device Nrb Oxygen Flow Rate 100% Vent Mode No Result Required. Vent Rate No Result Required. Mechanical Rate No Result Required. Pressure Support Vent No Result Required. POC Glucometer 199 07/11/19 21:31 POC Glucometer 199 - RADIOLOGY Radiology Studies Ordered: Category Date Time Status HEAD CT (STROKE) [CT] Stat CT Scan 07/12/19 00:01 Taken CHEST X-RAY PORTABLE* [RAD] Stat Radiology 07/11/19 21:23 Taken CXRPORT [CHEST X-RAY PORTABLE*] [RAD] Stat Radiology 07/11/19 23:39 Taken - Medications Given in the ED: ED Medications Discontinued Medications Generic Name Dose Route Start Last Admin Trade Name Freq PRN Reason Stop Dose Admin Ceftriaxone Sodium 1 gm/ 100 mls @ 200 mls/hr 07/11/19 23:58 07/12/19 01:00 Dextrose IVPB 07/12/19 00:27 200 mls/hr ONCE ONE Administration Protocol Sodium Chloride 500 mls @ 1,000 mls/hr 07/11/19 23:58 07/12/19 00:00 Normal Saline - IV 07/12/19 00:27 1,000 mls/hr ASDIR STA Administration Cefepime HCl 1 gm/ Dextrose 100 mls @ 200 mls/hr 07/12/19 04:00 07/12/19 05: 10 IVPB 07/12/19 04:29 200 mls/hr ONCE ONE Administration Protocol Cefepime HCl 1 gm in 50 mls @ 100 mls/hr 07/12/19 03:45 07/12/19 04:50 Maxipime 1 Gm Premix Ivpb IVPB Not Given Q8H-IV LISA Protocol Piperacillin Sod/Tazobactam 50 mls @ 100 mls/hr 07/12/19 03:48 07/12/19 04:52 Sod 2.25 gm/ Dextrose IVPB 07/12/19 04:17 Not Given ONCE ONE Protocol Vancomycin HCl 1,000 mg in 250 mls @ 166.667 mls/hr 07/12/19 04:30 07/12/19 04:00 Vancomycin (Pre-Docked) IVPB 07/12/19 05:59 166.667 mls/hr ONCE ONE Administration Piperacillin Sod/Tazobactam 50 mls @ 100 mls/hr 07/12/19 04:15 07/12/19 05:33 Sod 3.375 gm/ Dextrose IVPB 07/12/19 04:44 Not Given ONCE ONE Protocol Propofol 100 mcg 07/12/19 03:40 07/12/19 03:42 Diprivan - IVPUSH 07/12/19 03:41 100 mcg ONCE ONE Administration Rocuronium [place] 50 mg 07/12/19 03:08 07/12/19 04:20 Zemuron - IV 07/12/19 03:09 Not Given ONCE ONE Vancomycin HCl 1,000 mg 07/12/19 03:42 07/12/19 03:48 Vancomycin (Pre-Docked) IVPB 07/12/19 03:43 1,000 mg ONCE ONE Administration Protocol Discharge - Discharge Information Problems reviewed: Yes Clinical Impression/Diagnosis: Respiratory failure Qualifiers: Chronicity: acute Respiratory failure complication: hypoxia and hypercapnia Qualified Code(s): J96.01 - Acute respiratory failure with hypoxia; J96.02 - Acute respiratory failure with hypercapnia Condition: Fair - Follow up/Referral - Patient Discharge Instructions - Post Discharge Activity Procedures - Chest Tube Right Mid Axillary Line 4th ICS Indication: Pneumothorax Hebrew Tube Size(cm): 20(child) Anesthesia: 1% Lidocaine Sterile Draping: Yes Sterile Technique: Yes [place] of Air [place]: Yes Vaseline Gauze Dressing: No Suction: Yes Curved Clamp: Yes Tube Sutured to Skin: Yes Complications: No Post Procedure CXR: Yes (Tube slightly more advanced than intended, so drawn back 3 cms until 18cm)
--- NOTE | 2019-07-12 07:12 | PN ---
Progress Note (short form) - Note Progress Note: Chief Complaint: Events noted, notes reviewed, patient is intubated and sedated (Propofol and Fentanyl), history was predominantly obtained from the chart, resident staff and nursing staff History of Present Illness: Seen and examined in the ICU. Full consult dictated - Current Medication List Current Medications Chlorhexidine Gluconate (Hibiclens For Decolonization -) 1 applic TP HS LISA Fentanyl 500 mcg/ Dextrose 100 mls @ 4 mls/hr IVPB TITR LISA Last Titration: 07/12/19 03:22 Dose: 100 mcg/hr, 20 mls/hr Vancomycin HCl (Vancomycin 1 Gm Premix -) 1 gm in 200 mls @ 133.333 mls/hr IVPB Q24H LISA Cefepime HCl (Maxipime 1 Gm Premix Ivpb) 1 gm in 50 mls @ 100 mls/hr IVPB DAILY LISA; Protocol Norepinephrine Bitartrate 8, (000 mcg/ Dextrose) 500 mls @ 5.61 mls/hr IV ASDIR LISA; Protocol Propofol (Diprivan -) 1,000,000 mcg in 100 mls @ 2.82 mls/hr IVPB TITR LISA; Protocol Last Admin: 07/12/19 05:00 Dose: 10 mcg/kg/min, 2.82 mls/hr Mupirocin (Bactroban Ointment (For Decolonization) -) 1 applic NS BID LISA Stop: 07/17/19 09:59 Review of Systems Unable to obtain - Objective Vital Signs: Last Vital Signs Temp Pulse Resp BP Pulse Ox 97.9 F 67 16 113/45 L 100 07/12/19 06:09 07/12/19 06:09 07/12/19 06:34 07/12/19 06:09 07/12/19 05:07 Intake & Output 07/09/19 07/10/19 07/11/19 07/12/19 23:59 23:59 23:59 23:59 Intake Total 390 Output Total 230 Balance 160 Weight 110 lb 103 lb 9.876 oz Neck: Supple Negative JVD No Bruit Respiratory: Scattered Rhonchi Bilaterally Cardiovascular: S1 S2 Regular Rate Rhythm Gastrointestinal: Soft Benign Normal Bowel Sounds Ext: Negative Edema Labs: Troponin, BNP 07/12/19 07/12/19 07/12/19 00:10 00:55 01:31 Troponin I Cancelled Cancelled 0.88 H* B-Natriuretic Peptide 41806.1 H CBC, BMP 07/12/19 01:31 07/12/19 01:31 Hepatic Panel Total Bilirubin 1.1 mg/dL (0.2-1) H 07/12/19 01:31 AST 680 U/L (15-37) H 07/12/19 01:31 ALT 595 U/L (13-61) H 07/12/19 01:31 Alkaline Phosphatase 73 U/L (45-117) 07/12/19 01:31 Albumin 3.0 g/dl (3.4-5.0) L 07/12/19 01:31 INR, PTT INR Cancelled 07/12/19 00:11 ABG Results ABG pH 7.41 (7.35-7.45) 07/12/19 01:14 ABG pCO2 at Pt Temp 36.0 mmHg (35-45) 07/12/19 01:14 ABG pO2 at Pt Temp 339 mmHg (80-100) H 07/12/19 01:14 ABG HCO3 22.1 mmol/L (22-27) 07/12/19 01:14 ABG O2 Sat (Measured) 99.7 % (95-98) H 07/12/19 01:14 ABG O2 Content No Result Required. 07/12/19 01:14 ABG Base Excess -1.6 meq/l (-2-2) 07/12/19 01:14 Assessment/Plan ASSESSMENT: 1. Clinical presentation is consistent with Acute hypoxic respiratory failure most likely related to 2. Probable sepsis syndrome source of which to be determined/presentation with altered mental status 3. Coronary artery disease with evidence of demand ischemic injury angina pectoris/elevated troponin I level - most likely related to sepsis syndrome ( EKG abnormality noted prolonged QTC with T wave abnormality) 4. Diastolic left ventricular dysfunction with clinical class 0-I [place] [employer] classification left ventricular failure/elevated B-type natriuretic peptide- most likely related to sepsis syndrome 5. Hypertensive cardiovascular disease, hypotension related to the above-noted sepsis syndrome 6. History of non-sustained ventricular tachycardia 7. Aortic valve regurgitation 8. Tricuspid valve regurgitation with moderate degree of pulmonary hypertension 9. History of carotid stenosis, moderate in severity 10. Iatrogenic pneumothorax post chest tube insertion/complication of subclavian line insertion 10. Abnormal liver function testing, etiology of of which to be determined; question shock liver 12. Hyponatremia PLAN: 1. Recommend initiation of beta-tino therapy, hemodynamics permitting, Lopressor therapy at 25 mg twice daily (once off of pressor therapy) 2. Recommend initiation of JOHANNA inhibitor or angiotensin receptor tino therapy , hemodynamics permitting (once off of pressor therapy) 3. Recommend initiation of Aspirin therapy, no clear indication for initiation of anticoagulation therapy the above noted troponin I elevation is related to demand ischemic injury not a primary myocardial event 4. Antibiotics as per the primary team 5. Ventilator management as per the critical care team 6. Chest tube management as per the critical care team 7. Correction of hyponatremia, not convinced that the above noted hyponatremia is related to congestive heart failure (BNP elevation most likely related to sepsis syndrome) Condition critical, case was reviewed in detail with the treating ICU vadimtaleola Bruce M.D.
[2019-07-12] MEDS ORDERED: fentaNYL CITRATE 250 MCG/5 ML VIAL ONE ×3 (07:17→22:21)
[2019-07-12] MEDS: NOREPINEPHRINE BITARTRATE 8,000 MCG in DEXTROSE 5%-WATER - 492 ML IV SCH (07:30)
[2019-07-12 08:03] LABS: INR 1.34 (0.83-1.09); PROTHROMBIN TIME (PATIENT) 15.9 SEC (9.7-13.0)
[2019-07-12 08:06] LABS: ACTIVATED PTT 28.8 SECONDS (25.2-36.5)
[2019-07-12 08:32] LABS: BASO % 0.3 % (0-2.0); HEMATOCRIT 34.5 % (32.4-45.2); HEMOGLOBIN 11.6 GM/dL (10.7-15.3); LYMPH % 12.3 % (8-40); MCH 30.1 pg (25.7-33.7); MCHC 33.7 g/dl (32.0-36.0); MEAN CELL VOLUME 89.3 fl (80-96); MEAN PLT VOLUME 9.8 fl (7.5-11.1); MONO % 6.1 % (3.8-10.2); NEUT % 81.3 % (42.8-82.8); PLATELET COUNT 162 K/MM3 (134-434); RBC 3.87 M/mm3 (3.60-5.2); WHITE BLOOD COUNT 12.1 K/mm3 (4.0-10.0)
[2019-07-12 08:39] LABS: BLOOD UREA NITROGEN 35.5 mg/dL (7-18); CALCIUM 7.4 mg/dL (8.5-10.1); CREATININE 1.1 mg/dL (0.55-1.3); MAGNESIUM 1.7 mg/dL (1.8-2.4); PHOSPHOROUS 2.8 mg/dL (2.5-4.9)
[2019-07-12] MEDS ORDERED: NOREPINEPHRINE BITARTRATE 4 MG/4 ML ML IV ONE (08:45)
--- NOTE | 2019-07-12 09:42 | EKG ---
Test Reason : Blood Pressure : / mmHG Vent. Rate : 074 BPM Atrial Rate : 074 BPM P-R Int : 172 ms QRS Dur : 098 ms QT Int : 412 ms P-R-T Axes : 056 131 -04 degrees QTc Int : 457 ms NORMAL SINUS RHYTHM RIGHT AXIS DEVIATION INCOMPLETE RIGHT BUNDLE BRANCH BLOCK T WAVE ABNORMALITY, CONSIDER ANTERIOR ISCHEMIA ABNORMAL ECG WHEN COMPARED WITH ECG OF 07-JUL-2019 06:32, INCOMPLETE RIGHT BUNDLE BRANCH BLOCK IS NOW PRESENT Confirmed by MD Giovanni, Chevy ([id number]) on 07/12/2019 9:42:20 AM Referred By: Confirmed By:Chevy Davila MD
--- NOTE | 2019-07-12 09:42 | EKG ---
Test Reason : Blood Pressure : / mmHG Vent. Rate : 073 BPM Atrial Rate : 073 BPM P-R Int : 180 ms QRS Dur : 088 ms QT Int : 440 ms P-R-T Axes : 012 015 019 degrees QTc Int : 484 ms SINUS RHYTHM WITH PREMATURE ATRIAL COMPLEXES IN A PATTERN OF BIGEMINY T WAVE ABNORMALITY, CONSIDER ANTERIOR ISCHEMIA PROLONGED QT ABNORMAL ECG WHEN COMPARED WITH ECG OF 07-JUL-2019 06:32, PREMATURE ATRIAL COMPLEXES ARE NOW PRESENT QRS AXIS SHIFTED LEFT Confirmed by MD Giovanni, Chevy ([id number]) on 07/12/2019 9:42:03 AM Referred By: SANCHO Confirmed By:Chevy Davila MD
[2019-07-12] MEDS ORDERED: CEFTRIAXONE 1 GM in DEXTROSE 5%-WATER - 50 ML IVPB SCH (10:00)
[2019-07-12] MEDS ORDERED: DOXYCYCLINE INJECTION 100 MG in DEXTROSE 5%-WATER 100 ML IVPB SCH (10:00)
--- NOTE | 2019-07-12 10:14 | CONSULT ---
- Consultation REQUESTING PROVIDER: THORACIC SURGERY - Chevy Cristina CONSULT REQUEST: We have been asked to surgically evaluate this patient for right chest tube s/p iatrogenic pntx s/p Rt subclavian access PCP: Tawanna Rosales HPI: Called to eval 88 yo F w/ PMHx as noted below. Brought to [facility] ED after home health aid noted pat was AMS (not verbally responsive). Per Medical chart review, in the ER patient became dyspneic, accessory muscle use while on NRB and desaturated down to 70s. Patient was intubated and a right subclavian TLC placed (currently being used for sedation and pressor support). CxCT s/p procedure identified ~ 15% Right PNXT as well as bilateral pleural effusions. A right tube thoracostomy performed by the ED attending. PMHx: HFpEF HTN Depression Right CCA stenosis Falls PNA UTI Right Rib Fx Lateral Wall Right Maxillary Sinus non-displaced Fx PSHx: Craniotomy 6 years ago (subdural s/p fall) Right hip ORIF Appendectomy Tonsilectomy Home Meds: LORazepam 0.5 mg PO TID 07/07/19 Sertraline HCl 50 mg PO DAILY 07/07/19 Trazodone HCL 50 mg PO DAILY 07/07/19 Allergies NKDA ROS: Unable to obtain secondary to her current clinical condition. PE: GENERAL: sedated / intubated NECK: trach on vent Chest: Right subclavian TLC. Rt chest tube to pleurovac on suction, no air leak noted LUNGS: RLL rhonchi HEART: Afib ABDOMEN: Soft, nt, nd Last Vital Signs Temp Pulse Resp BP Pulse Ox 97.9 F 67 20 113/45 L 100 07/12/19 06:09 07/12/19 06:09 07/12/19 08:14 07/12/19 06:09 07/12/19 05:07 CBC, BMP 07/12/19 06:00 07/12/19 06:00 INR, PTT INR 1.34 (0.83-1.09) H 07/12/19 06:00 Troponin, BNP 07/12/19 07/12/19 01:31 06:00 Troponin I 0.88 H 0.93 B-Natriuretic Peptide 55648.1 H INR, PTT INR 1.34 (0.83-1.09) H 07/12/19 06:00 Problem List - Problems (1) Iatrogenic pneumothorax Assessment/Plan: 88 yo female sustained right pneumothorax s/p right subclavian access. A right chest tube was inserted and remains on suction without airleak noted. Monitor CxT Serial CXRs Sedated/intubated - care per pulmonary and respiratory teams Pressor support Surgery to cont following. Code(s): J95.811 - POSTPROCEDURAL PNEUMOTHORAX (2) Respiratory failure Code(s): J96.90 - RESPIRATORY FAILURE, UNSP, UNSP W HYPOXIA OR HYPERCAPNIA Qualifiers: Chronicity: acute Respiratory failure complication: hypoxia and hypercapnia Qualified Code(s): J96.01 - Acute respiratory failure with hypoxia ; J96.02 - Acute respiratory failure with hypercapnia (3) Depression Code(s): F32.9 - MAJOR DEPRESSIVE DISORDER, SINGLE EPISODE, UNSPECIFIED Qualifiers: Depression Type: unspecified Qualified Code(s): F32.9 - Major depressive disorder, single episode, unspecified (4) Diastolic dysfunction Code(s): I51.89 - OTHER ILL-DEFINED HEART DISEASES (5) Fall Code(s): W19.XXXA - UNSPECIFIED FALL, INITIAL ENCOUNTER Qualifiers: Encounter type: initial encounter Qualified Code(s): W19.XXXA - Unspecified fall, initial encounter (6) HTN (hypertension) Code(s): I10 - ESSENTIAL (PRIMARY) HYPERTENSION Qualifiers: Hypertension type: essential hypertension Qualified Code(s): I10 - Essential (primary) hypertension Visit type - Case Type Case Type: ED Admission - Emergency Emergency Visit: Yes ED Registration Date: 07/11/19 Care time: The patient presented to the Emergency Department on the above date and was hospitalized for further evaluation of their emergent condition. - New patient This patient is new to me today: Yes Date on this admission: 07/12/19
--- NOTE | 2019-07-12 10:19 | EKG ---
Test Reason : Blood Pressure : / mmHG Vent. Rate : 077 BPM Atrial Rate : 077 BPM P-R Int : 166 ms QRS Dur : 092 ms QT Int : 424 ms P-R-T Axes : 021 036 016 degrees QTc Int : 479 ms NORMAL SINUS RHYTHM WITH SINUS ARRHYTHMIA T WAVE ABNORMALITY, CONSIDER ANTERIOR ISCHEMIA PROLONGED QT ABNORMAL ECG WHEN COMPARED WITH ECG OF 12-JUL-2019 05:40, PREMATURE ATRIAL COMPLEXES ARE NO LONGER PRESENT Confirmed by Joseph Sierra MD ([id number]) on 07/12/2019 10:18:50 AM Referred By: Cristina FREITAS Confirmed By:Joseph Sierra MD
[2019-07-12] MEDS ORDERED: FUROSEMIDE 40 MG/4 ML INJECTABLE VIAL IVPUSH ONE (10:55)
--- NOTE | 2019-07-12 10:57 | PN ---
Progress Note (short form) - Note Progress Note: ID CONSULT DICTATED RESPIRATORY FAILURE BIBASILAR PNEUMONIA SEPSIS R/O SEPTIC SHOCK PNEUMOTHORAX LEUKOCYTOSIS LACTIC ACIDOSIS TRANSAMINITIS ? SECONDARY TO SEPSIS AWAIT C/S EMPIRIC CEFEPIME/ VANCOMYCIN VENTILATORY/ HEMODYNAMIC SUPPORT CRITICAL CARE TIME 35MIN
--- NOTE | 2019-07-12 11:14 | PN ---
Teaching Attending Note Name of Resident: Zoila Espinosa ATTENDING PHYSICIAN STATEMENT I saw and evaluated the patient. I reviewed the resident's note and discussed the case with the resident. I agree with the resident's findings and plan as documented. SUBJECTIVE: Patient seen and examined in the ICU. Intubated and sedated. AC Mode of vent, 40% FiO2. 3 mcq NE for hemodynamic support. No air leak noted on Pleural catheter. Intake & Output 07/09/19 07/10/19 07/11/19 07/12/19 23:59 23:59 23:59 23:59 Intake Total 390 Output Total 230 Balance 160 Weight 110 lb 103 lb 9.876 oz Last Vital Signs Temp Pulse Resp BP Pulse Ox 97.8 F 76 20 112/45 L 100 07/12/19 10:59 07/12/19 10:00 07/12/19 10:00 07/12/19 10:00 07/12/19 05:07 Active Medications Chlorhexidine Gluconate (Hibiclens For Decolonization -) 1 applic TP HS LISA Fentanyl 500 mcg/ Dextrose 100 mls @ 4 mls/hr IVPB TITR LISA Last Titration: 07/12/19 03:22 Dose: 100 mcg/hr, 20 mls/hr Vancomycin HCl (Vancomycin 1 Gm Premix -) 1 gm in 200 mls @ 133.333 mls/hr IVPB Q24H LISA Cefepime HCl (Maxipime 1 Gm Premix Ivpb) 1 gm in 50 mls @ 100 mls/hr IVPB DAILY LISA; Protocol Norepinephrine Bitartrate 8, (000 mcg/ Dextrose) 500 mls @ 5.61 mls/hr IV ASDIR LISA; Protocol Propofol (Diprivan -) 1,000,000 mcg in 100 mls @ 2.82 mls/hr IVPB TITR LISA; Protocol Last Admin: 07/12/19 05:00 Dose: 10 mcg/kg/min, 2.82 mls/hr Mupirocin (Bactroban Ointment (For Decolonization) -) 1 applic NS BID [facility] Stop: 07/17/19 09:59 GENERAL: Intubated and sedated HEAD: Normal with no signs of trauma. EYES: Pupils equal, round and reactive to light, sclera anicteric, conjunctiva clear. EARS, NOSE, THROAT: Ears normal, nares patent, oropharynx clear without exudates. NECK: Normal range of motion, supple without lymphadenopathy, JVD, or masses. LUNGS: Vented, bilateral rhonchi, (+) Right pleural catheter HEART: Regular rate and rhythm, normal S1 and S2 without murmur, rub or gallop. ABDOMEN: Soft, not distended, normoactive bowel sounds, no guarding, no rebound , no masses. No hepatomegaly or splenomegaly. MUSCULOSKELETAL: No bony deformities or tenderness. UPPER EXTREMITIES: 2+ pulses, warm, well-perfused. No cyanosis. No clubbing. Cap refill <2 seconds. 1+ edema LOWER EXTREMITIES: 2+ pulses, warm, well-perfused. No calf tenderness. No peripheral edema. NEUROLOGICAL: Sedated SKIN: Warm, dry, normal turgor, no rashes or lesions noted. central line placed in right subclavian vein. Laboratory Results - last 24 hr 07/11/19 07/11/19 07/11/19 20:55 20:55 21:31 WBC Corrected WBC (auto) RBC Hgb Hct MCV MCH MCHC RDW Plt Count MPV Absolute Neuts (auto) Neutrophils % Lymphocytes % Monocytes % Eosinophils % Basophils % Nucleated RBC % Platelet Estimate Platelet Comment PT with INR INR PTT (Actin FS) Anticoagulation Therapy No Result Required. Puncture Site Left radial ABG pH 7.07 L* ABG pCO2 at Pt Temp 88.4 H* ABG pO2 at Pt Temp 97.7 ABG HCO3 24.4 ABG O2 Sat (Measured) 92.5 L ABG O2 Content 92.5 ABG Base Excess -8.7 L Roshan Test Positive Carboxyhemoglobin < 0.5 Methemoglobin < 1.0 O2 Delivery Device Nrb Oxygen Flow Rate 100% Vent Mode No Result Required. Vent Rate No Result Required. Mechanical Rate No Result Required. PEEP Pressure Support Vent No Result Required. Sodium Potassium Chloride Carbon Dioxide Anion Gap BUN Creatinine Est GFR (CKD-EPI)AfAm Est GFR (CKD-EPI)NonAf POC Glucometer 199 Random Glucose Serum Osmolality Lactic Acid Calcium Phosphorus Magnesium Total Bilirubin AST ALT Alkaline Phosphatase Troponin I B-Natriuretic Peptide Total Protein Albumin TSH Urine Color Urine Appearance Urine pH Ur Specific [place] Urine Protein Urine Glucose (UA) Urine Ketones Urine Blood Urine Nitrite Urine Bilirubin Urine Urobilinogen Ur Leukocyte Esterase Urine WBC (Auto) Urine RBC (Auto) Urine Casts (Auto) U Pathogenic Cast Auto U Epithel Cells (Auto) Urine Bacteria (Auto) 07/12/19 07/12/19 07/12/19 00:10 00:10 00:10 WBC Cancelled Corrected WBC (auto) Cancelled RBC Cancelled Hgb Cancelled Hct Cancelled MCV Cancelled MCH Cancelled MCHC Cancelled RDW Cancelled Plt Count Cancelled MPV Cancelled Absolute Neuts (auto) Cancelled Neutrophils % Cancelled Lymphocytes % Cancelled Monocytes % Cancelled Eosinophils % Cancelled Basophils % Cancelled Nucleated RBC % Cancelled Platelet Estimate Cancelled Platelet Comment Cancelled PT with INR INR PTT (Actin FS) Anticoagulation Therapy Puncture Site ABG pH ABG pCO2 at Pt Temp ABG pO2 at Pt Temp ABG HCO3 ABG O2 Sat (Measured) ABG O2 Content ABG Base Excess Roshan Test Carboxyhemoglobin Methemoglobin O2 Delivery Device Oxygen Flow Rate Vent Mode Vent Rate Mechanical Rate PEEP Pressure Support Vent Sodium Cancelled Potassium Cancelled Chloride Cancelled Carbon Dioxide Cancelled Anion Gap Cancelled BUN Cancelled Creatinine Cancelled Est GFR (CKD-EPI)AfAm Cancelled Est GFR (CKD-EPI)NonAf Cancelled POC Glucometer Random Glucose Cancelled Serum Osmolality Lactic Acid Calcium Cancelled Phosphorus Magnesium Total Bilirubin Cancelled AST Cancelled ALT Cancelled Alkaline Phosphatase Cancelled Troponin I Cancelled B-Natriuretic Peptide Total Protein Cancelled Albumin Cancelled TSH Urine Color Urine Appearance Urine pH Ur Specific [place] Urine Protein Urine Glucose (UA) Urine Ketones Urine Blood Urine Nitrite Urine Bilirubin Urine Urobilinogen Ur Leukocyte Esterase Urine WBC (Auto) Urine RBC (Auto) Urine Casts (Auto) U Pathogenic Cast Auto U Epithel Cells (Auto) Urine Bacteria (Auto) 07/12/19 07/12/19 07/12/19 00:11 00:11 00:11 WBC Corrected WBC (auto) RBC Hgb Hct MCV MCH MCHC RDW Plt Count MPV Absolute Neuts (auto) Neutrophils % Lymphocytes % Monocytes % Eosinophils % Basophils % Nucleated RBC % Platelet Estimate Platelet Comment PT with INR Cancelled INR Cancelled PTT (Actin FS) Cancelled Anticoagulation Therapy Puncture Site ABG pH ABG pCO2 at Pt Temp ABG pO2 at Pt Temp ABG HCO3 ABG O2 Sat (Measured) ABG O2 Content ABG Base Excess Roshan Test Carboxyhemoglobin Methemoglobin O2 Delivery Device Oxygen Flow Rate Vent Mode Vent Rate Mechanical Rate PEEP Pressure Support Vent Sodium Potassium Chloride Carbon Dioxide Anion Gap BUN Creatinine Est GFR (CKD-EPI)AfAm Est GFR (CKD-EPI)NonAf POC Glucometer Random Glucose Serum Osmolality Lactic Acid 2.7 H* Calcium Phosphorus Magnesium Total Bilirubin AST ALT Alkaline Phosphatase Troponin I B-Natriuretic Peptide Total Protein Albumin TSH Urine Color Yellow Urine Appearance Cloudy Urine pH 5.0 D Ur Specific [place] 1.019 Urine Protein 1+ H Urine Glucose (UA) Negative Urine Ketones Negative Urine Blood 1+ H Urine Nitrite Negative Urine Bilirubin Negative Urine Urobilinogen 1.0 Ur Leukocyte Esterase Negative Urine WBC (Auto) 1 Urine RBC (Auto) 3 Urine Casts (Auto) 21 U Pathogenic Cast Auto Seen U Epithel Cells (Auto) 2.4 Urine Bacteria (Auto) 7.0 07/12/19 07/12/19 07/12/19 00:55 00:55 00:55 WBC Cancelled Corrected WBC (auto) Cancelled RBC Cancelled Hgb Cancelled Hct Cancelled MCV Cancelled MCH Cancelled MCHC Cancelled RDW Cancelled Plt Count Cancelled MPV Cancelled Absolute Neuts (auto) Cancelled Neutrophils % Cancelled Lymphocytes % Cancelled Monocytes % Cancelled Eosinophils % Cancelled Basophils % Cancelled Nucleated RBC % Cancelled Platelet Estimate Cancelled Platelet Comment Cancelled PT with INR Cancelled INR Cancelled PTT (Actin FS) Anticoagulation Therapy Puncture Site ABG pH ABG pCO2 at Pt Temp ABG pO2 at Pt Temp ABG HCO3 ABG O2 Sat (Measured) ABG O2 Content ABG Base Excess Roshan Test Carboxyhemoglobin Methemoglobin O2 Delivery Device Oxygen Flow Rate Vent Mode Vent Rate Mechanical Rate PEEP Pressure Support Vent Sodium Cancelled Potassium Cancelled Chloride Cancelled Carbon Dioxide Cancelled Anion Gap Cancelled BUN Cancelled Creatinine Cancelled Est GFR (CKD-EPI)AfAm Cancelled Est GFR (CKD-EPI)NonAf Cancelled POC Glucometer Random Glucose Cancelled Serum Osmolality Lactic Acid Calcium Cancelled Phosphorus Magnesium Total Bilirubin Cancelled AST Cancelled ALT Cancelled Alkaline Phosphatase Cancelled Troponin I Cancelled B-Natriuretic Peptide Total Protein Cancelled Albumin Cancelled TSH Urine Color Urine Appearance Urine pH Ur Specific [place] Urine Protein Urine Glucose (UA) Urine Ketones Urine Blood Urine Nitrite Urine Bilirubin Urine Urobilinogen Ur Leukocyte Esterase Urine WBC (Auto) Urine RBC (Auto) Urine Casts (Auto) U Pathogenic Cast Auto U Epithel Cells (Auto) Urine Bacteria (Auto) 07/12/19 07/12/19 07/12/19 01:14 01:31 01:31 WBC 16.2 H Corrected WBC (auto) RBC 4.13 Hgb 12.5 Hct 37.0 MCV 89.7 MCH 30.2 MCHC 33.7 RDW 13.3 Plt Count 180 MPV 9.9 D Absolute Neuts (auto) 13.3 H Neutrophils % 81.9 D Lymphocytes % 11.6 D Monocytes % 5.9 Eosinophils % 0.0 D Basophils % 0.6 Nucleated RBC % 0 Platelet Estimate Platelet Comment PT with INR INR PTT (Actin FS) Anticoagulation Therapy No Result Required. Puncture Site Left radial ABG pH 7.41 ABG pCO2 at Pt Temp 36.0 ABG pO2 at Pt Temp 339 H ABG HCO3 22.1 ABG O2 Sat (Measured) 99.7 H ABG O2 Content No Result Required. ABG Base Excess -1.6 Roshan Test Positive Carboxyhemoglobin No Result Required. Methemoglobin < 1.0 O2 Delivery Device Vent Oxygen Flow Rate 100% Vent Mode A/c Vent Rate 20 Mechanical Rate Yes PEEP 5.0 Pressure Support Vent 350 Sodium 127 L Potassium 4.5 Chloride 89 L Carbon Dioxide 26 Anion Gap 12 BUN 39.0 H Creatinine 1.6 H Est GFR (CKD-EPI)AfAm 33.47 Est GFR (CKD-EPI)NonAf 28.88 POC Glucometer Random Glucose 111 H Serum Osmolality Lactic Acid Calcium 7.8 L Phosphorus Magnesium Total Bilirubin 1.1 H AST 680 H ALT 595 H Alkaline Phosphatase 73 Troponin I 0.88 H* B-Natriuretic Peptide 28290.1 H Total Protein 5.2 L Albumin 3.0 L TSH 3.67 Urine Color Urine Appearance Urine pH Ur Specific [place] Urine Protein Urine Glucose (UA) Urine Ketones Urine Blood Urine Nitrite Urine Bilirubin Urine Urobilinogen Ur Leukocyte Esterase Urine WBC (Auto) Urine RBC (Auto) Urine Casts (Auto) U Pathogenic Cast Auto U Epithel Cells (Auto) Urine Bacteria (Auto) 07/12/19 07/12/19 07/12/19 02:02 06:00 06:00 WBC Corrected WBC (auto) RBC Hgb Hct MCV MCH MCHC RDW Plt Count MPV Absolute Neuts (auto) Neutrophils % Lymphocytes % Monocytes % Eosinophils % Basophils % Nucleated RBC % Platelet Estimate Platelet Comment PT with INR Cancelled INR Cancelled PTT (Actin FS) Anticoagulation Therapy Puncture Site ABG pH ABG pCO2 at Pt Temp ABG pO2 at Pt Temp ABG HCO3 ABG O2 Sat (Measured) ABG O2 Content ABG Base Excess Roshan Test Carboxyhemoglobin Methemoglobin O2 Delivery Device Oxygen Flow Rate Vent Mode Vent Rate Mechanical Rate PEEP Pressure Support Vent Sodium 126 L Potassium 4.0 Chloride 90 L Carbon Dioxide 26 Anion Gap 10 BUN 35.5 H Creatinine 1.1 Est GFR (CKD-EPI)AfAm 52.65 Est GFR (CKD-EPI)NonAf 45.42 POC Glucometer Random Glucose 130 H Serum Osmolality Lactic Acid 1.6 Calcium 7.4 L Phosphorus 2.8 Magnesium 1.7 L Total Bilirubin AST ALT Alkaline Phosphatase Troponin I 0.93 H* B-Natriuretic Peptide Total Protein Albumin TSH Urine Color Urine Appearance Urine pH Ur Specific [place] Urine Protein Urine Glucose (UA) Urine Ketones Urine Blood Urine Nitrite Urine Bilirubin Urine Urobilinogen Ur Leukocyte Esterase Urine WBC (Auto) Urine RBC (Auto) Urine Casts (Auto) U Pathogenic Cast Auto U Epithel Cells (Auto) Urine Bacteria (Auto) 07/12/19 07/12/19 07/12/19 06:00 06:00 06:00 WBC 12.1 H Corrected WBC (auto) RBC 3.87 Hgb 11.6 Hct 34.5 MCV 89.3 MCH 30.1 MCHC 33.7 RDW 13.0 Plt Count 162 MPV 9.8 Absolute Neuts (auto) 9.8 H Neutrophils % 81.3 Lymphocytes % 12.3 Monocytes % 6.1 Eosinophils % 0.0 Basophils % 0.3 Nucleated RBC % 0 Platelet Estimate Platelet Comment PT with INR 15.90 H INR 1.34 H PTT (Actin FS) 28.8 Anticoagulation Therapy Puncture Site ABG pH ABG pCO2 at Pt Temp ABG pO2 at Pt Temp ABG HCO3 ABG O2 Sat (Measured) ABG O2 Content ABG Base Excess Roshan Test Carboxyhemoglobin Methemoglobin O2 Delivery Device Oxygen Flow Rate Vent Mode Vent Rate Mechanical Rate PEEP Pressure Support Vent Sodium Potassium Chloride Carbon Dioxide Anion Gap BUN Creatinine Est GFR (CKD-EPI)AfAm Est GFR (CKD-EPI)NonAf POC Glucometer Random Glucose Serum Osmolality 271 L Lactic Acid Calcium Phosphorus Magnesium Total Bilirubin AST ALT Alkaline Phosphatase Troponin I B-Natriuretic Peptide Total Protein Albumin TSH Urine Color Urine Appearance Urine pH Ur Specific [place] Urine Protein Urine Glucose (UA) Urine Ketones Urine Blood Urine Nitrite Urine Bilirubin Urine Urobilinogen Ur Leukocyte Esterase Urine WBC (Auto) Urine RBC (Auto) Urine Casts (Auto) U Pathogenic Cast Auto U Epithel Cells (Auto) Urine Bacteria (Auto) ASSESSMENT/PLAN: Acute Respiratory Failure due to PNA Depression HTN Recurrent falls Diastolic dysfunction CCA stenosis Chronic SDH AC Mode of vent ABX per ID Follow cultures VTE prophylaxis Strict I & O No lasix Enteral feeds Pressors to maintain MAP > [address] Pemberton Critical care time spent in reviewing chart, evaluating patient and formulating plan - 36 minutes
[2019-07-12] MEDS: MUPIROCIN 2% TOPICAL OINTMENT FOR DECOLONIZATION NS SCH ×2 (11:21→21:22)
--- NOTE | 2019-07-12 12:22 | PN ---
Teaching Attending Note Name of Resident: Brad Portillo ATTENDING PHYSICIAN STATEMENT I saw and evaluated the patient. I reviewed the resident's note and discussed the case with the resident. I agree with the resident's findings and plan as documented. SUBJECTIVE: Intubated, unable to obtain hx. OBJECTIVE: Intubated, sedated, round small pupils, 1 -2 mm in diameter, reactive to light . ET in CV: RRR, 2/6 SM at apex which is heard louder in L axilla. 3/6 SM heard in back. . No JVD Lungs: anteriorly clear. Abd: soft, hypoactive BS. no grimacing with palpation Ext : 2+ pitting edemas on legs . ASSESSMENT AND PLAN: 88 y/o lady with h/o diastolic dysfunction , HTN, depression, chronic R subdural hematoma , h/o ETOH abuse, R carotid artery stenosis, and recent admission for PNA , and UTI, during which she had NSVT, who was brought from home due to AMS and was found to have acute hypoxic , hypercapnic resp failure. 1- Acute hypoxic hypercapnic resp failure. could be due to PNA , but also there might be signs of acute diastolic heart failure ( hyponatremia, elevated BNP, b /l pleural effusions, LE edema, ...) Now intubated and her resp acidosis corrected. - cont Vent management. - hold of lasix for now, but will discuss her volume status with cardiology. rNote is still pending Recs - treat PNA: cefepime and vanco - last echo reviewed. repeat echo - follow blood cx - urine elc - obtain flu swab - obtain Urine tox 2- HARJINDER: likely prerenal. imroved - monitor cr. no need fro renal US 3- Hyponatremia: could be due to acute heart failure VS poor po intake - urine electrolytes pending - will determine volume status and monitor 4- Transaminitis: hepatocellular picture. could be due to sepsis, vs passive liver congestion from heart failure. tylenol level is low. - repeat liver function - US of liver 5- Sepsis with septic shock: Likely due to PNA. - taper off Levo - cont Abx for PNA 6- R pneumothorax. - resolved on repeat cxray - will repeat tomorrow 7- ELEvated trop: EKG with new inverted TW in anterioseptal leads and L axis deviation which are new compared to EKG form last admission - can't r/o NSTEMi but demand ischemia from spesis and hypoxia is possible - check one more trop and will decide on AC if needed - Crd recs pending . will call 8- DVT PX : add heparin SQ
[2019-07-12] MEDS ORDERED: MAGNESIUM SULF 50% (8.12 MEQ/2 ML-1 GM VIAL) IVPB ONE (12:34)
[2019-07-12] MEDS: VANCOMYCIN 1 GRAM (PRE-DOCKED) 1,000 MG/250 ML BAG IVPB SCH (13:07)
--- NOTE | 2019-07-12 13:17 | PN ---
Physical Exam: SUBJECTIVE: Patient seen and examined in bed, intubated and on ventilator. She opens eyes during abdominal exam. OBJECTIVE: Vital Signs Period Temp Pulse Resp BP Sys/Da Silva Pulse Ox Last 24 Hr 97.8 F-98.3 F 62-76 12-28 84-130/36-62 93-100 VENT SETT[place], 20, 5, 100% GENERAL: Intubated and sedated. HEAD: NC. 3 cm healed, vertical laceration on RIGHT hindu EYES: 1-2 mm pupils. Non-reactive to light. ENT: Ears normal, nares patent, oropharynx clear without exudates. Moist mucous membranes. ET in place. LUNGS: CTAB. No wheezes, and no crackles. No accessory muscle use. HEART: RRR s1 s2. 2/6 systolic murmur radiating to back. ABDOMEN: Soft, BS present in all 4 quadrants, non-distended, no JVD, MUSCULOSKELETAL: No bony deformities or tenderness. Chest tube in place on RIGHT UPPER EXTREMITIES: 2+ pulses, warm, well-perfused. No cyanosis. No clubbing. No peripheral edema. LOWER EXTREMITIES: 2+ pulses, warm, well-perfused. No calf tenderness. No peripheral edema. SKIN: 2x5 RUE ecchymosis. Warm, dry, normal turgor, normal capillary refill. Laboratory Results - last 24 hr 07/11/19 07/11/19 07/11/19 20:55 20:55 21:31 WBC Corrected WBC (auto) RBC Hgb Hct MCV MCH MCHC RDW Plt Count MPV Absolute Neuts (auto) Neutrophils % Lymphocytes % Monocytes % Eosinophils % Basophils % Nucleated RBC % Platelet Estimate Platelet Comment PT with INR INR PTT (Actin FS) Anticoagulation Therapy No Result Required. Puncture Site Left radial ABG pH 7.07 L* ABG pCO2 at Pt Temp 88.4 H* ABG pO2 at Pt Temp 97.7 ABG HCO3 24.4 ABG O2 Sat (Measured) 92.5 L ABG O2 Content 92.5 ABG Base Excess -8.7 L Roshan Test Positive Carboxyhemoglobin < 0.5 Methemoglobin < 1.0 O2 Delivery Device Nrb Oxygen Flow Rate 100% Vent Mode No Result Required. Vent Rate No Result Required. Mechanical Rate No Result Required. PEEP Pressure Support Vent No Result Required. Sodium Potassium Chloride Carbon Dioxide Anion Gap BUN Creatinine Est GFR (CKD-EPI)AfAm Est GFR (CKD-EPI)NonAf POC Glucometer 199 Random Glucose Serum Osmolality Lactic Acid Calcium Phosphorus Magnesium Total Bilirubin AST ALT Alkaline Phosphatase Troponin I B-Natriuretic Peptide Total Protein Albumin TSH Urine Color Urine Appearance Urine pH Ur Specific [place] Urine Protein Urine Glucose (UA) Urine Ketones Urine Blood Urine Nitrite Urine Bilirubin Urine Urobilinogen Ur Leukocyte Esterase Urine WBC (Auto) Urine RBC (Auto) Urine Casts (Auto) U Pathogenic Cast Auto U Epithel Cells (Auto) Urine Bacteria (Auto) Acetaminophen 07/12/19 07/12/19 07/12/19 00:10 00:10 00:10 WBC Cancelled Corrected WBC (auto) Cancelled RBC Cancelled Hgb Cancelled Hct Cancelled MCV Cancelled MCH Cancelled MCHC Cancelled RDW Cancelled Plt Count Cancelled MPV Cancelled Absolute Neuts (auto) Cancelled Neutrophils % Cancelled Lymphocytes % Cancelled Monocytes % Cancelled Eosinophils % Cancelled Basophils % Cancelled Nucleated RBC % Cancelled Platelet Estimate Cancelled Platelet Comment Cancelled PT with INR INR PTT (Actin FS) Anticoagulation Therapy Puncture Site ABG pH ABG pCO2 at Pt Temp ABG pO2 at Pt Temp ABG HCO3 ABG O2 Sat (Measured) ABG O2 Content ABG Base Excess Roshan Test Carboxyhemoglobin Methemoglobin O2 Delivery Device Oxygen Flow Rate Vent Mode Vent Rate Mechanical Rate PEEP Pressure Support Vent Sodium Cancelled Potassium Cancelled Chloride Cancelled Carbon Dioxide Cancelled Anion Gap Cancelled BUN Cancelled Creatinine Cancelled Est GFR (CKD-EPI)AfAm Cancelled Est GFR (CKD-EPI)NonAf Cancelled POC Glucometer Random Glucose Cancelled Serum Osmolality Lactic Acid Calcium Cancelled Phosphorus Magnesium Total Bilirubin Cancelled AST Cancelled ALT Cancelled Alkaline Phosphatase Cancelled Troponin I Cancelled B-Natriuretic Peptide Total Protein Cancelled Albumin Cancelled TSH Urine Color Urine Appearance Urine pH Ur Specific [place] Urine Protein Urine Glucose (UA) Urine Ketones Urine Blood Urine Nitrite Urine Bilirubin Urine Urobilinogen Ur Leukocyte Esterase Urine WBC (Auto) Urine RBC (Auto) Urine Casts (Auto) U Pathogenic Cast Auto U Epithel Cells (Auto) Urine Bacteria (Auto) Acetaminophen 07/12/19 07/12/19 07/12/19 00:11 00:11 00:11 WBC Corrected WBC (auto) RBC Hgb Hct MCV MCH MCHC RDW Plt Count MPV Absolute Neuts (auto) Neutrophils % Lymphocytes % Monocytes % Eosinophils % Basophils % Nucleated RBC % Platelet Estimate Platelet Comment PT with INR Cancelled INR Cancelled PTT (Actin FS) Cancelled Anticoagulation Therapy Puncture Site ABG pH ABG pCO2 at Pt Temp ABG pO2 at Pt Temp ABG HCO3 ABG O2 Sat (Measured) ABG O2 Content ABG Base Excess Roshan Test Carboxyhemoglobin Methemoglobin O2 Delivery Device Oxygen Flow Rate Vent Mode Vent Rate Mechanical Rate PEEP Pressure Support Vent Sodium Potassium Chloride Carbon Dioxide Anion Gap BUN Creatinine Est GFR (CKD-EPI)AfAm Est GFR (CKD-EPI)NonAf POC Glucometer Random Glucose Serum Osmolality Lactic Acid 2.7 H* Calcium Phosphorus Magnesium Total Bilirubin AST ALT Alkaline Phosphatase Troponin I B-Natriuretic Peptide Total Protein Albumin TSH Urine Color Yellow Urine Appearance Cloudy Urine pH 5.0 D Ur Specific [place] 1.019 Urine Protein 1+ H Urine Glucose (UA) Negative Urine Ketones Negative Urine Blood 1+ H Urine Nitrite Negative Urine Bilirubin Negative Urine Urobilinogen 1.0 Ur Leukocyte Esterase Negative Urine WBC (Auto) 1 Urine RBC (Auto) 3 Urine Casts (Auto) 21 U Pathogenic Cast Auto Seen U Epithel Cells (Auto) 2.4 Urine Bacteria (Auto) 7.0 Acetaminophen 07/12/19 07/12/19 07/12/19 00:55 00:55 00:55 WBC Cancelled Corrected WBC (auto) Cancelled RBC Cancelled Hgb Cancelled Hct Cancelled MCV Cancelled MCH Cancelled MCHC Cancelled RDW Cancelled Plt Count Cancelled MPV Cancelled Absolute Neuts (auto) Cancelled Neutrophils % Cancelled Lymphocytes % Cancelled Monocytes % Cancelled Eosinophils % Cancelled Basophils % Cancelled Nucleated RBC % Cancelled Platelet Estimate Cancelled Platelet Comment Cancelled PT with INR Cancelled INR Cancelled PTT (Actin FS) Anticoagulation Therapy Puncture Site ABG pH ABG pCO2 at Pt Temp ABG pO2 at Pt Temp ABG HCO3 ABG O2 Sat (Measured) ABG O2 Content ABG Base Excess [place]han Test Carboxyhemoglobin Methemoglobin O2 Delivery Device Oxygen Flow Rate Vent Mode Vent Rate Mechanical Rate PEEP Pressure Support Vent Sodium Cancelled Potassium Cancelled Chloride Cancelled Carbon Dioxide Cancelled Anion Gap Cancelled BUN Cancelled Creatinine Cancelled Est GFR (CKD-EPI)AfAm Cancelled Est GFR (CKD-EPI)NonAf Cancelled POC Glucometer Random Glucose Cancelled Serum Osmolality Lactic Acid Calcium Cancelled Phosphorus Magnesium Total Bilirubin Cancelled AST Cancelled ALT Cancelled Alkaline Phosphatase Cancelled Troponin I Cancelled B-Natriuretic Peptide Total Protein Cancelled Albumin Cancelled TSH Urine Color Urine Appearance Urine pH Ur Specific [place] Urine Protein Urine Glucose (UA) Urine Ketones Urine Blood Urine Nitrite Urine Bilirubin Urine Urobilinogen Ur Leukocyte Esterase Urine WBC (Auto) Urine RBC (Auto) Urine Casts (Auto) U Pathogenic Cast Auto U Epithel Cells (Auto) Urine Bacteria (Auto) Acetaminophen 07/12/19 07/12/19 07/12/19 01:14 01:31 01:31 WBC 16.2 H Corrected WBC (auto) RBC 4.13 Hgb 12.5 Hct 37.0 MCV 89.7 MCH 30.2 MCHC 33.7 RDW 13.3 Plt Count 180 MPV 9.9 D Absolute Neuts (auto) 13.3 H Neutrophils % 81.9 D Lymphocytes % 11.6 D Monocytes % 5.9 Eosinophils % 0.0 D Basophils % 0.6 Nucleated RBC % 0 Platelet Estimate Platelet Comment PT with INR INR PTT (Actin FS) Anticoagulation Therapy No Result Required. Puncture Site Left radial ABG pH 7.41 ABG pCO2 at Pt Temp 36.0 ABG pO2 at Pt Temp 339 H ABG HCO3 22.1 ABG O2 Sat (Measured) 99.7 H ABG O2 Content No Result Required. ABG Base Excess -1.6 Roshan Test Positive Carboxyhemoglobin No Result Required. Methemoglobin < 1.0 O2 Delivery Device Vent Oxygen Flow Rate 100% Vent Mode A/c Vent Rate 20 Mechanical Rate Yes PEEP 5.0 Pressure Support Vent 350 Sodium 127 L Potassium 4.5 Chloride 89 L Carbon Dioxide 26 Anion Gap 12 BUN 39.0 H Creatinine 1.6 H Est GFR (CKD-EPI)AfAm 33.47 Est GFR (CKD-EPI)NonAf 28.88 POC Glucometer Random Glucose 111 H Serum Osmolality Lactic Acid Calcium 7.8 L Phosphorus Magnesium Total Bilirubin 1.1 H AST 680 H ALT 595 H Alkaline Phosphatase 73 Troponin I 0.88 H* B-Natriuretic Peptide 85373.1 H Total Protein 5.2 L Albumin 3.0 L TSH 3.67 Urine Color Urine Appearance Urine pH Ur Specific [place] Urine Protein Urine Glucose (UA) Urine Ketones Urine Blood Urine Nitrite Urine Bilirubin Urine Urobilinogen Ur Leukocyte Esterase Urine WBC (Auto) Urine RBC (Auto) Urine Casts (Auto) U Pathogenic Cast Auto U Epithel Cells (Auto) Urine Bacteria (Auto) Acetaminophen 07/12/19 07/12/19 07/12/19 02:02 06:00 06:00 WBC Corrected WBC (auto) RBC Hgb Hct MCV MCH MCHC RDW Plt Count MPV Absolute Neuts (auto) Neutrophils % Lymphocytes % Monocytes % Eosinophils % Basophils % Nucleated RBC % Platelet Estimate Platelet Comment PT with INR Cancelled INR Cancelled PTT (Actin FS) Anticoagulation Therapy Puncture Site ABG pH ABG pCO2 at Pt Temp ABG pO2 at Pt Temp ABG HCO3 ABG O2 Sat (Measured) ABG O2 Content ABG Base Excess [place]han Test Carboxyhemoglobin Methemoglobin O2 Delivery Device Oxygen Flow Rate Vent Mode Vent Rate Mechanical Rate PEEP Pressure Support Vent Sodium 126 L Potassium 4.0 Chloride 90 L Carbon Dioxide 26 Anion Gap 10 BUN 35.5 H Creatinine 1.1 Est GFR (CKD-EPI)AfAm 52.65 Est GFR (CKD-EPI)NonAf 45.42 POC Glucometer Random Glucose 130 H Serum Osmolality Lactic Acid 1.6 Calcium 7.4 L Phosphorus 2.8 Magnesium 1.7 L Total Bilirubin AST ALT Alkaline Phosphatase Troponin I 0.93 H* B-Natriuretic Peptide Total Protein Albumin TSH Urine Color Urine Appearance Urine pH Ur Specific [place] Urine Protein Urine Glucose (UA) Urine Ketones Urine Blood Urine Nitrite Urine Bilirubin Urine Urobilinogen Ur Leukocyte Esterase Urine WBC (Auto) Urine RBC (Auto) Urine Casts (Auto) U Pathogenic Cast Auto U Epithel Cells (Auto) Urine Bacteria (Auto) Acetaminophen 07/12/19 07/12/19 07/12/19 06:00 06:00 06:00 WBC 12.1 H Corrected WBC (auto) RBC 3.87 Hgb 11.6 Hct 34.5 MCV 89.3 MCH 30.1 MCHC 33.7 RDW 13.0 Plt Count 162 MPV 9.8 Absolute Neuts (auto) 9.8 H Neutrophils % 81.3 Lymphocytes % 12.3 Monocytes % 6.1 Eosinophils % 0.0 Basophils % 0.3 Nucleated RBC % 0 Platelet Estimate Platelet Comment PT with INR 15.90 H INR 1.34 H PTT (Actin FS) 28.8 Anticoagulation Therapy Puncture Site ABG pH ABG pCO2 at Pt Temp ABG pO2 at Pt Temp ABG HCO3 ABG O2 Sat (Measured) ABG O2 Content ABG Base Excess Roshan Test Carboxyhemoglobin Methemoglobin O2 Delivery Device Oxygen Flow Rate Vent Mode Vent Rate Mechanical Rate PEEP Pressure Support Vent Sodium Potassium Chloride Carbon Dioxide Anion Gap BUN Creatinine Est GFR (CKD-EPI)AfAm Est GFR (CKD-EPI)NonAf POC Glucometer Random Glucose Serum Osmolality 271 L Lactic Acid Calcium Phosphorus Magnesium Total Bilirubin AST ALT Alkaline Phosphatase Troponin I B-Natriuretic Peptide Total Protein Albumin TSH Urine Color Urine Appearance Urine pH Ur Specific [place] Urine Protein Urine Glucose (UA) Urine Ketones Urine Blood Urine Nitrite Urine Bilirubin Urine Urobilinogen Ur Leukocyte Esterase Urine WBC (Auto) Urine RBC (Auto) Urine Casts (Auto) U Pathogenic Cast Auto U Epithel Cells (Auto) Urine Bacteria (Auto) Acetaminophen 07/12/19 07/12/19 10:45 11:31 WBC Corrected WBC (auto) RBC Hgb Hct MCV MCH MCHC RDW Plt Count MPV Absolute Neuts (auto) Neutrophils % Lymphocytes % Monocytes % Eosinophils % Basophils % Nucleated RBC % Platelet Estimate Platelet Comment PT with INR INR PTT (Actin FS) Anticoagulation Therapy Puncture Site ABG pH ABG pCO2 at Pt Temp ABG pO2 at Pt Temp ABG HCO3 ABG O2 Sat (Measured) ABG O2 Content ABG Base Excess [place]han Test Carboxyhemoglobin Methemoglobin O2 Delivery Device Oxygen Flow Rate Vent Mode Vent Rate Mechanical Rate PEEP Pressure Support Vent Sodium Potassium Chloride Carbon Dioxide Anion Gap BUN Creatinine Est GFR (CKD-EPI)AfAm Est GFR (CKD-EPI)NonAf POC Glucometer 84 Random Glucose Serum Osmolality Lactic Acid Calcium Phosphorus Magnesium Total Bilirubin AST ALT Alkaline Phosphatase Troponin I B-Natriuretic Peptide Total Protein Albumin TSH Urine Color Urine Appearance Urine pH Ur Specific [place] Urine Protein Urine Glucose (UA) Urine Ketones Urine Blood Urine Nitrite Urine Bilirubin Urine Urobilinogen Ur Leukocyte Esterase Urine WBC (Auto) Urine RBC (Auto) Urine Casts (Auto) U Pathogenic Cast Auto U Epithel Cells (Auto) Urine Bacteria (Auto) Acetaminophen 5.2 Active Medications Generic Name Dose Route Start Last Admin Trade Name Freq PRN Reason Stop Dose Admin Chlorhexidine Gluconate 1 applic 07/12/19 22:00 Hibiclens For Decolonization - TP HS LISA Heparin Sodium (Porcine) 5,000 unit 07/12/19 14:00 Heparin - SQ TID LISA Fentanyl 500 mcg/ Dextrose 100 mls @ 4 mls/hr 07/12/19 00:15 07/12/19 12:43 IVPB 50 mcg/hr TITR LISA 10 mls/hr Administration 20 MCG/HR Norepinephrine Bitartrate 8, 500 mls @ 5.61 mls/hr 07/12/19 05:30 07/12/19 07 :30 000 mcg/ Dextrose IV 0.04 mcg/kg/min ASDIR LISA 7.5 mls/hr Administration Protocol 0.03 MCG/KG/MIN Propofol 1,000,000 mcg in 100 mls @ 2.82 mls/hr 07/12/19 06:30 07/12/19 05:00 Diprivan - IVPB 10 mcg/kg/min TITR LISA 2.82 mls/hr Administration Protocol 10 MCG/KG/MIN Cefepime HCl 1 gm/ Dextrose 100 mls @ 100 mls/hr 07/12/19 18:00 IVPB Q8H-IV LISA Protocol Vancomycin HCl 1,000 mg in 250 mls @ 200 mls/hr 07/12/19 11:30 07/12/19 13:07 Vancomycin (Pre-Docked) IVPB 200 mls/hr Q24H LISA Administration Protocol Mupirocin 1 applic 07/12/19 10:00 07/12/19 11:21 Bactroban Ointment (For Decolonization) - NS 07/17/19 09:59 1 applic BID LISA Administration ASSESSMENT/PLAN: 88 female PMH HTN, HFpEF, depression, chronic RIGHT subdural hematoma, ETOH abuse, RIGHT carotid artery stenosis, and recent admission for PNA and UTI. Pt brought to hospital after lack of responsiveness and desaturating to the 80s. She was admitted for care of acute hypoxic, hypercapnic respiratory failure. AC Mode of vent, 40% FiO2. No air leak noted on pleural catheter. # Acute hypoxic, hypercapnic respiratory failure: PNA vs exacerbation of HF - Acute diastolic heart failure: hyponatremia, elevated BNP, BL pleural effusions, BL LE edema - Continue vent management. - Continue cefepime 1 g IV q8h and vancomycin 1 g IV qd - 3 mcq NE for hemodynamic support, maintain MAP > 65 - Repeat echo - F/u urine and blood culture - Flu swab - F/u urine tox # HARJINDER - BUN/Cr 39/1.6 - Cr improved this AM to 1.1 - Avoid aggressive hydration in consideration of HF # Hyponatremia: HF vs poor po intake - F/u urine electrolytes - I/o - Daily weights # Transaminitis: hypotension vs toxicity vs sepsis vs liver congestion 2/2 heart failure - Repeat liver function - US of liver - Acetominophen level 5.2, WNL # Sepsis with septic shock: Likely due to PNA - Taper off Levo - Continue antibiotics for PNA # RIGHT pneumothorax - Resolved on repeat CXR - F/u CXR in AM # Troponemia - 0.88 -> 0.93 - Possibly 2/2 sepsis (demand ischemia, hypoxia) - EKG with new inverted TWI anterioseptal leads and L axis deviation which are new compared to EKG form last admission (possible NSTEMI) - F/u repeat troponin and if elevated, consider heparin drip - Consult cardiology # Leukocytosis - PNA vs left shift - Resolving # F/E/N - NS - Cont. to monitor - NPO/enteral feeds # DVT prophylaxis - Heparin SQ # Disposition - ICU monitoring Enrrique Lin MD Visit type - Emergency Visit Emergency Visit: No - New Patient This patient is new to me today: Yes Date on this admission: 07/12/19 - Critical Care Critical Care patient: Yes Total Critical Care Time (in minutes): 40 Critical Care Statement: The care of this patient involved high complexity decision making to prevent further life threatening deterioration of the patient 's condition and/or to evaluate & treat vital organ system(s) failure or risk of failure. ATTENDING PHYSICIAN STATEMENT I saw and evaluated the patient. I reviewed the resident's note and discussed the case with the resident. I agree with the resident's findings and plan as documented. SUBJECTIVE: OBJECTIVE: ASSESSMENT AND PLAN:
--- NOTE | 2019-07-12 13:37 | CONS ---
INFECTIOUS DISEASE CONSULTATION DATE OF CONSULTATION: DATE OF DICTATION: 07/12/2019 HISTORY: The patient is an 88-year-old female who was evaluated for possible septic shock. She was admitted to the emergency room on July 11, 2019, with worsening shortness of breath. She had recently been hospitalized at [facility] from July 07 through July 09 for syncope complicated by urinary tract infection. At that time, she was found to have a positive urine culture for proteus and E. coli. She was discharged home on oral antibiotic therapy. She now returns with worsening shortness of breath and respiratory distress. In the emergency room, the patient was noted to be in respiratory failure and required intubation. She was transferred to the intensive care unit. She is presently intubated on mechanical ventilation, hypotensive on pressors. Her course has been complicated by elevated white blood cell count and lactic acidosis. A central line was placed, and she had developed a right apical pneumothorax for which a chest tube was inserted. She was empirically treated with vancomycin, Zosyn, and cefepime. At the present time, she is awake but poorly responsive. She is intubated. She is in no acute distress on the ventilator. Her course has been complicated by elevated white blood cell count and elevated liver enzymes. Cultures are pending. Chest x-ray showed increased markings at the bases bilaterally. CAT scan showed bibasilar infiltrates and bibasilar pleural effusions as well as a small apical pneumothorax. PAST MEDICAL HISTORY: Positive for anxiety, depression, hypertension, alcohol abuse, congestive heart failure, subdural hematoma. PAST SURGICAL HISTORY: Status post appendectomy, right hip ORIF. ALLERGIES: No known allergies. MEDICATIONS: Cefepime, vancomycin, Zosyn, norepinephrine. SOCIAL HISTORY: Patient resides at home. No documented tobacco or alcohol use history. SYSTEMS REVIEW: Neurologic: No loss of consciousness, seizure activity, or focal weakness. Positive history of subdural hematoma. Cardiac: Negative chest pain or palpitations. Respiratory: As per HPI. Gastrointestinal: Negative vomiting or diarrhea. Genitourinary: Negative for urinary tract infection. LABORATORY DATA: White count on admission 16.2, presently 12.1, hematocrit 34.5, platelets 162, BUN 29, creatinine 1.6. Sodium 126. Urinalysis; 1 white cell. Total bilirubin 1.1, alkaline phosphatase 75, 680, AST 595. Chest x-ray and CAT scan as mentioned. PHYSICAL EXAMINATION: General: She is an elderly female. She is intubated. She is in no acute distress. Vital Signs: Temperature 97.9, blood pressure 112/45, pulse 76 regular, respirations 20 per minute. HEENT: Sclerae anicteric. Patient is orally intubated. There is a chest tube present in the right chest, a subclavian line present. Heart: Sounds S1, S2. Lungs: Air entry bilaterally. Abdomen: Soft. No tenderness elicited. No mass, rebound, or rigidity. Extremities: Negative for edema. IMPRESSION: 1. Respiratory failure. 2. Bibasilar pneumonia. 3. Sepsis, rule out septic shock. 4. Iatrogenic pneumothorax status post chest tube. 5. Leukocytosis. 6. Lactic acidosis. 7. Azotemia. 8. Transaminitis possibly secondary to sepsis. 9. Hyponatremia. PLAN: Await sepsis workup. Continue ventilatory and hemodynamic support. Empiric antibiotic coverage for possible hospital-acquired respiratory track pathogens with vancomycin and cefepime adjusted for azotemia. Prognosis is guarded. We will follow. Thank you for the kind referral. MERVIN WOODSON M.D. [id number]
--- NOTE | 2019-07-12 13:41 | PN ---
Physical Exam: SUBJECTIVE: Patient seen and examined at bedside. Overnight no acute events. Intubated & sedated. Continuing abx. Clamping chest tube continuing to monitor. OBJECTIVE: Vital Signs Period Temp Pulse Resp BP Sys/Da Silva Pulse Ox Last 24 Hr 97.8 F-98.3 F 62-76 12-28 84-130/36-62 93-100 GENERAL: Intubated, sedated, on vent. HEENT: PERRLA. LUNGS: B/l basilar crackles noted. R chest tube in place on water seal no air leak. HEART: RRR S1S2 heard no murmurs. ABDOMEN: Soft NTND. + BS EXTREMITIES: 2+ pulses, warm, well-perfused, no edema. NEUROLOGICAL: sedated SKIN: RUE bruising noted, present on admission Laboratory Results - last 24 hr 07/11/19 07/11/19 07/11/19 20:55 20:55 21:31 WBC Corrected WBC (auto) RBC Hgb Hct MCV MCH MCHC RDW Plt Count MPV Absolute Neuts (auto) Neutrophils % Lymphocytes % Monocytes % Eosinophils % Basophils % Nucleated RBC % Platelet Estimate Platelet Comment PT with INR INR PTT (Actin FS) Anticoagulation Therapy No Result Required. Puncture Site Left radial ABG pH 7.07 L* ABG pCO2 at Pt Temp 88.4 H* ABG pO2 at Pt Temp 97.7 ABG HCO3 24.4 ABG O2 Sat (Measured) 92.5 L ABG O2 Content 92.5 ABG Base Excess -8.7 L Roshan Test Positive Carboxyhemoglobin < 0.5 Methemoglobin < 1.0 O2 Delivery Device Nrb Oxygen Flow Rate 100% Vent Mode No Result Required. Vent Rate No Result Required. Mechanical Rate No Result Required. PEEP Pressure Support Vent No Result Required. Sodium Potassium Chloride Carbon Dioxide Anion Gap BUN Creatinine Est GFR (CKD-EPI)AfAm Est GFR (CKD-EPI)NonAf POC Glucometer 199 Random Glucose Serum Osmolality Lactic Acid Calcium Phosphorus Magnesium Total Bilirubin AST ALT Alkaline Phosphatase Troponin I B-Natriuretic Peptide Total Protein Albumin TSH Urine Color Urine Appearance Urine pH Ur Specific [place] Urine Protein Urine Glucose (UA) Urine Ketones Urine Blood Urine Nitrite Urine Bilirubin Urine Urobilinogen Ur Leukocyte Esterase Urine WBC (Auto) Urine RBC (Auto) Urine Casts (Auto) U Pathogenic Cast Auto U Epithel Cells (Auto) Urine Bacteria (Auto) Acetaminophen 07/12/19 07/12/19 07/12/19 00:10 00:10 00:10 WBC Cancelled Corrected WBC (auto) Cancelled RBC Cancelled Hgb Cancelled Hct Cancelled MCV Cancelled MCH Cancelled MCHC Cancelled RDW Cancelled Plt Count Cancelled MPV Cancelled Absolute Neuts (auto) Cancelled Neutrophils % Cancelled Lymphocytes % Cancelled Monocytes % Cancelled Eosinophils % Cancelled Basophils % Cancelled Nucleated RBC % Cancelled Platelet Estimate Cancelled Platelet Comment Cancelled PT with INR INR PTT (Actin FS) Anticoagulation Therapy Puncture Site ABG pH ABG pCO2 at Pt Temp ABG pO2 at Pt Temp ABG HCO3 ABG O2 Sat (Measured) ABG O2 Content ABG Base Excess Roshan Test Carboxyhemoglobin Methemoglobin O2 Delivery Device Oxygen Flow Rate Vent Mode Vent Rate Mechanical Rate PEEP Pressure Support Vent Sodium Cancelled Potassium Cancelled Chloride Cancelled Carbon Dioxide Cancelled Anion Gap Cancelled BUN Cancelled Creatinine Cancelled Est GFR (CKD-EPI)AfAm Cancelled Est GFR (CKD-EPI)NonAf Cancelled POC Glucometer Random Glucose Cancelled Serum Osmolality Lactic Acid Calcium Cancelled Phosphorus Magnesium Total Bilirubin Cancelled AST Cancelled ALT Cancelled Alkaline Phosphatase Cancelled Troponin I Cancelled B-Natriuretic Peptide Total Protein Cancelled Albumin Cancelled TSH Urine Color Urine Appearance Urine pH Ur Specific [place] Urine Protein Urine Glucose (UA) Urine Ketones Urine Blood Urine Nitrite Urine Bilirubin Urine Urobilinogen Ur Leukocyte Esterase Urine WBC (Auto) Urine RBC (Auto) Urine Casts (Auto) U Pathogenic Cast Auto U Epithel Cells (Auto) Urine Bacteria (Auto) Acetaminophen 07/12/19 07/12/19 07/12/19 00:11 00:11 00:11 WBC Corrected WBC (auto) RBC Hgb Hct MCV MCH MCHC RDW Plt Count MPV Absolute Neuts (auto) Neutrophils % Lymphocytes % Monocytes % Eosinophils % Basophils % Nucleated RBC % Platelet Estimate Platelet Comment PT with INR Cancelled INR Cancelled PTT (Actin FS) Cancelled Anticoagulation Therapy Puncture Site ABG pH ABG pCO2 at Pt Temp ABG pO2 at Pt Temp ABG HCO3 ABG O2 Sat (Measured) ABG O2 Content ABG Base Excess Roshan Test Carboxyhemoglobin Methemoglobin O2 Delivery Device Oxygen Flow Rate Vent Mode Vent Rate Mechanical Rate PEEP Pressure Support Vent Sodium Potassium Chloride Carbon Dioxide Anion Gap BUN Creatinine Est GFR (CKD-EPI)AfAm Est GFR (CKD-EPI)NonAf POC Glucometer Random Glucose Serum Osmolality Lactic Acid 2.7 H* Calcium Phosphorus Magnesium Total Bilirubin AST ALT Alkaline Phosphatase Troponin I B-Natriuretic Peptide Total Protein Albumin TSH Urine Color Yellow Urine Appearance Cloudy Urine pH 5.0 D Ur Specific [place] 1.019 Urine Protein 1+ H Urine Glucose (UA) Negative Urine Ketones Negative Urine Blood 1+ H Urine Nitrite Negative Urine Bilirubin Negative Urine Urobilinogen 1.0 Ur Leukocyte Esterase Negative Urine WBC (Auto) 1 Urine RBC (Auto) 3 Urine Casts (Auto) 21 U Pathogenic Cast Auto Seen U Epithel Cells (Auto) 2.4 Urine Bacteria (Auto) 7.0 Acetaminophen 07/12/19 07/12/19 07/12/19 00:55 00:55 00:55 WBC Cancelled Corrected WBC (auto) Cancelled RBC Cancelled Hgb Cancelled Hct Cancelled MCV Cancelled MCH Cancelled MCHC Cancelled RDW Cancelled Plt Count Cancelled MPV Cancelled Absolute Neuts (auto) Cancelled Neutrophils % Cancelled Lymphocytes % Cancelled Monocytes % Cancelled Eosinophils % Cancelled Basophils % Cancelled Nucleated RBC % Cancelled Platelet Estimate Cancelled Platelet Comment Cancelled PT with INR Cancelled INR Cancelled PTT (Actin FS) Anticoagulation Therapy Puncture Site ABG pH ABG pCO2 at Pt Temp ABG pO2 at Pt Temp ABG HCO3 ABG O2 Sat (Measured) ABG O2 Content ABG Base Excess Roshan Test Carboxyhemoglobin Methemoglobin O2 Delivery Device Oxygen Flow Rate Vent Mode Vent Rate Mechanical Rate PEEP Pressure Support Vent Sodium Cancelled Potassium Cancelled Chloride Cancelled Carbon Dioxide Cancelled Anion Gap Cancelled BUN Cancelled Creatinine Cancelled Est GFR (CKD-EPI)AfAm Cancelled Est GFR (CKD-EPI)NonAf Cancelled POC Glucometer Random Glucose Cancelled Serum Osmolality Lactic Acid Calcium Cancelled Phosphorus Magnesium Total Bilirubin Cancelled AST Cancelled ALT Cancelled Alkaline Phosphatase Cancelled Troponin I Cancelled B-Natriuretic Peptide Total Protein Cancelled Albumin Cancelled TSH Urine Color Urine Appearance Urine pH Ur Specific [place] Urine Protein Urine Glucose (UA) Urine Ketones Urine Blood Urine Nitrite Urine Bilirubin Urine Urobilinogen Ur Leukocyte Esterase Urine WBC (Auto) Urine RBC (Auto) Urine Casts (Auto) U Pathogenic Cast Auto U Epithel Cells (Auto) Urine Bacteria (Auto) Acetaminophen 07/12/19 07/12/19 07/12/19 01:14 01:31 01:31 WBC 16.2 H Corrected WBC (auto) RBC 4.13 Hgb 12.5 Hct 37.0 MCV 89.7 MCH 30.2 MCHC 33.7 RDW 13.3 Plt Count 180 MPV 9.9 D Absolute Neuts (auto) 13.3 H Neutrophils % 81.9 D Lymphocytes % 11.6 D Monocytes % 5.9 Eosinophils % 0.0 D Basophils % 0.6 Nucleated RBC % 0 Platelet Estimate Platelet Comment PT with INR INR PTT (Actin FS) Anticoagulation Therapy No Result Required. Puncture Site Left radial ABG pH 7.41 ABG pCO2 at Pt Temp 36.0 ABG pO2 at Pt Temp 339 H ABG HCO3 22.1 ABG O2 Sat (Measured) 99.7 H ABG O2 Content No Result Required. ABG Base Excess -1.6 Roshan Test Positive Carboxyhemoglobin No Result Required. Methemoglobin < 1.0 O2 Delivery Device Vent Oxygen Flow Rate 100% Vent Mode A/c Vent Rate 20 Mechanical Rate Yes PEEP 5.0 Pressure Support Vent 350 Sodium 127 L Potassium 4.5 Chloride 89 L Carbon Dioxide 26 Anion Gap 12 BUN 39.0 H Creatinine 1.6 H Est GFR (CKD-EPI)AfAm 33.47 Est GFR (CKD-EPI)NonAf 28.88 POC Glucometer Random Glucose 111 H Serum Osmolality Lactic Acid Calcium 7.8 L Phosphorus Magnesium Total Bilirubin 1.1 H AST 680 H ALT 595 H Alkaline Phosphatase 73 Troponin I 0.88 H* B-Natriuretic Peptide 16589.1 H Total Protein 5.2 L Albumin 3.0 L TSH 3.67 Urine Color Urine Appearance Urine pH Ur Specific [place] Urine Protein Urine Glucose (UA) Urine Ketones Urine Blood Urine Nitrite Urine Bilirubin Urine Urobilinogen Ur Leukocyte Esterase Urine WBC (Auto) Urine RBC (Auto) Urine Casts (Auto) U Pathogenic Cast Auto U Epithel Cells (Auto) Urine Bacteria (Auto) Acetaminophen 07/12/19 07/12/19 07/12/19 02:02 06:00 06:00 WBC Corrected WBC (auto) RBC Hgb Hct MCV MCH MCHC RDW Plt Count MPV Absolute Neuts (auto) Neutrophils % Lymphocytes % Monocytes % Eosinophils % Basophils % Nucleated RBC % Platelet Estimate Platelet Comment PT with INR Cancelled INR Cancelled PTT (Actin FS) Anticoagulation Therapy Puncture Site ABG pH ABG pCO2 at Pt Temp ABG pO2 at Pt Temp ABG HCO3 ABG O2 Sat (Measured) ABG O2 Content ABG Base Excess Roshan Test Carboxyhemoglobin Methemoglobin O2 Delivery Device Oxygen Flow Rate Vent Mode Vent Rate Mechanical Rate PEEP Pressure Support Vent Sodium 126 L Potassium 4.0 Chloride 90 L Carbon Dioxide 26 Anion Gap 10 BUN 35.5 H Creatinine 1.1 Est GFR (CKD-EPI)AfAm 52.65 Est GFR (CKD-EPI)NonAf 45.42 POC Glucometer Random Glucose 130 H Serum Osmolality Lactic Acid 1.6 Calcium 7.4 L Phosphorus 2.8 Magnesium 1.7 L Total Bilirubin AST ALT Alkaline Phosphatase Troponin I 0.93 H* B-Natriuretic Peptide Total Protein Albumin TSH Urine Color Urine Appearance Urine pH Ur Specific [place] Urine Protein Urine Glucose (UA) Urine Ketones Urine Blood Urine Nitrite Urine Bilirubin Urine Urobilinogen Ur Leukocyte Esterase Urine WBC (Auto) Urine RBC (Auto) Urine Casts (Auto) U Pathogenic Cast Auto U Epithel Cells (Auto) Urine Bacteria (Auto) Acetaminophen 07/12/19 07/12/19 07/12/19 06:00 06:00 06:00 WBC 12.1 H Corrected WBC (auto) RBC 3.87 Hgb 11.6 Hct 34.5 MCV 89.3 MCH 30.1 MCHC 33.7 RDW 13.0 Plt Count 162 MPV 9.8 Absolute Neuts (auto) 9.8 H Neutrophils % 81.3 Lymphocytes % 12.3 Monocytes % 6.1 Eosinophils % 0.0 Basophils % 0.3 Nucleated RBC % 0 Platelet Estimate Platelet Comment PT with INR 15.90 H INR 1.34 H PTT (Actin FS) 28.8 Anticoagulation Therapy Puncture Site ABG pH ABG pCO2 at Pt Temp ABG pO2 at Pt Temp ABG HCO3 ABG O2 Sat (Measured) ABG O2 Content ABG Base Excess Roshan Test Carboxyhemoglobin Methemoglobin O2 Delivery Device Oxygen Flow Rate Vent Mode Vent Rate Mechanical Rate PEEP Pressure Support Vent Sodium Potassium Chloride Carbon Dioxide Anion Gap BUN Creatinine Est GFR (CKD-EPI)AfAm Est GFR (CKD-EPI)NonAf POC Glucometer Random Glucose Serum Osmolality 271 L Lactic Acid Calcium Phosphorus Magnesium Total Bilirubin AST ALT Alkaline Phosphatase Troponin I B-Natriuretic Peptide Total Protein Albumin TSH Urine Color Urine Appearance Urine pH Ur Specific [place] Urine Protein Urine Glucose (UA) Urine Ketones Urine Blood Urine Nitrite Urine Bilirubin Urine Urobilinogen Ur Leukocyte Esterase Urine WBC (Auto) Urine RBC (Auto) Urine Casts (Auto) U Pathogenic Cast Auto U Epithel Cells (Auto) Urine Bacteria (Auto) Acetaminophen 07/12/19 07/12/19 10:45 11:31 WBC Corrected WBC (auto) RBC Hgb Hct MCV MCH MCHC RDW Plt Count MPV Absolute Neuts (auto) Neutrophils % Lymphocytes % Monocytes % Eosinophils % Basophils % Nucleated RBC % Platelet Estimate Platelet Comment PT with INR INR PTT (Actin FS) Anticoagulation Therapy Puncture Site ABG pH ABG pCO2 at Pt Temp ABG pO2 at Pt Temp ABG HCO3 ABG O2 Sat (Measured) ABG O2 Content ABG Base Excess Roshan Test Carboxyhemoglobin Methemoglobin O2 Delivery Device Oxygen Flow Rate Vent Mode Vent Rate Mechanical Rate PEEP Pressure Support Vent Sodium Potassium Chloride Carbon Dioxide Anion Gap BUN Creatinine Est GFR (CKD-EPI)AfAm Est GFR (CKD-EPI)NonAf POC Glucometer 84 Random Glucose Serum Osmolality Lactic Acid Calcium Phosphorus Magnesium Total Bilirubin AST ALT Alkaline Phosphatase Troponin I B-Natriuretic Peptide Total Protein Albumin TSH Urine Color Urine Appearance Urine pH Ur Specific [place] Urine Protein Urine Glucose (UA) Urine Ketones Urine Blood Urine Nitrite Urine Bilirubin Urine Urobilinogen Ur Leukocyte Esterase Urine WBC (Auto) Urine RBC (Auto) Urine Casts (Auto) U Pathogenic Cast Auto U Epithel Cells (Auto) Urine Bacteria (Auto) Acetaminophen 5.2 Active Medications Generic Name Dose Route Start Last Admin Trade Name Freq PRN Reason Stop Dose Admin Chlorhexidine Gluconate 1 applic 07/12/19 22:00 Hibiclens For Decolonization - TP HS LISA Heparin Sodium (Porcine) 5,000 unit 07/12/19 14:00 Heparin - SQ TID LISA Fentanyl 500 mcg/ Dextrose 100 mls @ 4 mls/hr 07/12/19 00:15 07/12/19 12:43 IVPB 50 mcg/hr TITR LISA 10 mls/hr Administration 20 MCG/HR Norepinephrine Bitartrate 8, 500 mls @ 5.61 mls/hr 07/12/19 05:30 07/12/19 07 :30 000 mcg/ Dextrose IV 0.04 mcg/kg/min ASDIR LISA 7.5 mls/hr Administration Protocol 0.03 MCG/KG/MIN Propofol 1,000,000 mcg in 100 mls @ 2.82 mls/hr 07/12/19 06:30 07/12/19 05:00 Diprivan - IVPB 10 mcg/kg/min TITR LISA 2.82 mls/hr Administration Protocol 10 MCG/KG/MIN Cefepime HCl 1 gm/ Dextrose 100 mls @ 100 mls/hr 07/12/19 18:00 IVPB Q8H-IV LISA Protocol Vancomycin HCl 1,000 mg in 250 mls @ 200 mls/hr 07/12/19 11:30 07/12/19 13:07 Vancomycin (Pre-Docked) IVPB 200 mls/hr Q24H LISA Administration Protocol Mupirocin 1 applic 07/12/19 10:00 07/12/19 11:21 Bactroban Ointment (For Decolonization) - NS 07/17/19 09:59 1 applic BID LISA Administration ASSESSMENT/PLAN: 88 y.o. F PMH HTN, recurring falls, depression, diastolic HFpEF, aortic stenosis , CCA stenosis, recently d/c'd 07/10/19 2/2 PNA, presenting with acute hypoxic hypercarbic respiratory failure 2/2 PNA. #Neuro -Sedated (propofol, fentanyl) -Hx of depression #CV -Pressor initiated (levo); maintain MAP >65 -Monitor BP & vitals -Echo done 07/07/19: EF 55-60%, mild MR, pulm HTN, & AR -EKG NSR no ST changes -Trend trop 2/2 tropinemia -Cardio Dr. Goddard following #Pulm -CT chest post CVC placement showed 10-15% RUL pneumothorax; chest tube clamped today pending removal -CXR today shows minimal improvement; dense L base & incr markings in R hemithorax -Vent settings: AC mode TV 350 RR 20 FiO2 40% PEEP 5 -BNP 60415; holding Lasix -Aspiration precautions #Renal -HARJINDER; Cr improving, trend #GI -Transaminitis likely 2/2 sepsis -Trend lfts #Heme/Onc -Leukocytosis 2/2 PNA # -Mills in place 200mL overnight #ID -C/w abx cefepime & vanc -Dr. Graham following #PPX -Heparin SQ #FEN -no standing fluids -Hyponatremic; f/u urine lytes; trend bmp -NPO Visit type - Emergency Visit Emergency Visit: No - New Patient This patient is new to me today: Yes Date on this admission: 07/12/19 - Critical Care Critical Care patient: Yes Total Critical Care Time (in minutes): 36 Critical Care Statement: The care of this patient involved high complexity decision making to prevent further life threatening deterioration of the patient 's condition and/or to evaluate & treat vital organ system(s) failure or risk of failure. ATTENDING PHYSICIAN STATEMENT I saw and evaluated the patient. I reviewed the resident's note and discussed the case with the resident. I agree with the resident's findings and plan as documented. SUBJECTIVE: OBJECTIVE: ASSESSMENT AND PLAN:
[2019-07-12] MEDS: SODIUM CHLORIDE 1,000 ML IV SCH (14:40)
[2019-07-12] MEDS: HEPARIN NA (PORCINE) 5,000 UNITS/ML 1ML VIAL SQ SCH ×2 (15:00→21:22)
[2019-07-12 15:29] LABS: ALBUMIN 2.9 g/dl (3.4-5.0); BILIRUBIN,DIRECT 0.2 mg/dL (0.0-0.2); BILIRUBIN,TOTAL 0.7 mg/dL (0.2-1); TOT PROT 5.1 g/dl (6.4-8.2)
--- NOTE | 2019-07-12 16:42 | PN ---
Progress Note (short form) - Note Progress Note: Thoracic Surgery: S/p ptx from line placement attempt, chest tube placed and lung expanded. Continue chest tube on water seal if lung remains expanded. Would not dc until recovery more likely.
[2019-07-12 16:58] LABS: COCAINE, UR NEGATIVE ng/ml (CUTOFF=300); METHADONE, UR NEGATIVE ng/ml (CUTOFF=300); OPIATES, URI NEGATIVE ng/ml (CUTOFF=300); PHENCYCLIDINE,URINE NEGATIVE ng/ml (CUTOFF=25); URINE BARBITURATES NEGATIVE ng/ml (CUTOFF=200); URINE BENZODIAZEPINES NEGATIVE ng/ml (CUTOFF=200)
[2019-07-12 16:59] LABS: URINE AMPHETAMINES NEGATIVE ng/ml (CUTOFF=500)
[2019-07-12] MEDS ORDERED: CEFEPIME HCL 1 GM VIAL (RESTRICTED TO ID) ONE (17:50)
[2019-07-12] MEDS ORDERED: DEXTROSE 5%-WATER 100 ML IVPB ONE (17:51)
[2019-07-12] MEDS: CEFEPIME 1 GM in DEXTROSE 5%-WATER 100 ML IVPB SCH (18:03)
--- NOTE | 2019-07-12 19:55 | CONS ---
DATE OF CONSULTATION: 07/12/2019 REQUESTING PHYSICIAN: Hospitalist Service. CHIEF COMPLAINT: Cardiovascular evaluation of elevated troponin I and elevated BNP levels. History was predominantly obtained from the chart, resident staff in the ICU, nursing staff in the ICU. No family members available. Patient currently is intubated and sedated. HISTORY OF PRESENT ILLNESS: An 88-year-old female who was recently admitted to [facility] with recurrent falls with known history of coronary artery disease and angina pectoris, diastolic left ventricular dysfunction with clinical class 0 [place] [employer] classification left ventricular failure, hypertensive cardiovascular disease, carotid stenosis marked in severity, recurrent falls, who resides at home, was noted by her home health aid to have altered mental status, in view of which she presented urgently to [facility] emergency room for further evaluation and management. Emergency room course was complicated by acute respiratory failure requiring mechanical ventilation. Triple lumen catheter insertion was performed in the right subclavian vein. Post procedure course was complicated by pneumothorax requiring chest tube insertion. As noted above, patient currently is intubated and sedated, does not appear to be in any distress. IV propofol and fentanyl are infusing. Patient currently appears to be in sinus rhythm with premature supraventricular and ventricular contractions. PAST MEDICAL HISTORY: Coronary artery disease, angina pectoris, diastolic left ventricular dysfunction with clinical class 0 [place] [employer] classification left ventricular failure, hypertensive cardiovascular disease, carotid stenosis moderate in severity, recurrent falls with recent rib fractures. SOCIAL HISTORY: Resides at home. FAMILY HISTORY: Not known. ALLERGIES: Not known. MEDICAL THERAPY: Currently includes fentanyl drip, vancomycin 1 g every 24 hours, Maxipime 1 g once every 24 hours, norepinephrine infusion, propofol infusion. REVIEW OF SYSTEMS: Unable to obtain. PHYSICAL EXAMINATION: Vital signs: Blood pressure is 113/45 mmHg, pulse rate is 67 beats per minute. Head/Neck: Pupils are sluggish but reactive to light and accommodation. Anicteric sclerae. Negative JVD. No bruit appreciated. Chest: Bilateral scattered rhonchi. Cardiovascular: S1, S2 regular. Occasional ectopics. Grade 1 to 2 over 6 systolic ejection murmur. No clicks or gallops. Abdomen: Soft, benign. Normoactive bowel sounds. Extremities: Negative edema. Diminished distal pulses. Electrocardiogram reveals sinus rhythm, prolonged QTC interval with inferior T wave abnormality. Chest x-ray and CT scan of the chest, reports were noted. Troponin I of 0.88. B-type natriuretic peptide was 25,143. White cell count 16.2, hemoglobin 12.5, platelets 180. Sodium 127, BUN 39, creatinine 1.6, glucose 111, AST 680, ALT 595. ABG revealed pH of 7.41 with a pCO2 of 36, pO2 of 339, saturation 99.7%. ASSESSMENT: 1. Clinical presentation is consistent with acute hypoxic respiratory failure most likely related to number 2, probable sepsis syndrome, source of which is to be determined, presentation with altered mental status. 2. Coronary artery disease with evidence of demand ischemic injury, angina pectoris, elevated troponin I level most likely related to the above noted sepsis syndrome, electrocardiographic abnormality noted with prolonged QTC and T wave abnormality. 3. Diastolic left ventricular dysfunction with clinical class 0 to 1 [place] Heart [employer] classification left ventricular failure elevated B-type natriuretic peptide, most likely related to sepsis syndrome. 4. Hypertensive cardiovascular disease. Currently hypotensive. 5. Aortic valve regurgitation evident on echocardiography performed earlier today, which revealed normal left ventricular size and systolic function. 6. Tricuspid valve regurgitation with moderate degree of pulmonary hypertension. 7. History of carotid stenosis, moderate in severity. 8. Iatrogenic pneumothorax post chest tube insertion. Complication of subclavian line insertion. Triple lumen catheter. 9. Abnormal liver function tests, etiology of which is to be determined. Question shock liver. 10. Hyponatremia. RECOMMENDATION: 1. Recommend initiation of beta-tino therapy, hemodynamics permitting. Lopressor 25 mg twice daily. 2. Recommend initiation of JOHANNA inhibitor, or angiotensin receptor tino therapy, hemodynamics permitting. Recommend initiation of aspirin therapy unless contraindicated. No clear indication for initiation of coagulation therapy. The above noted troponin I elevation is related to demand ischemic injury, not a primary myocardial event. 3. Antibiotics as per the primary team. 4. Ventilator management as per the critical care team. 5. Chest tube management as per the critical care team. 6. Correction of hyponatremia not convinced that the above-noted hyponatremia is related to congestive heart failure. BNP elevation most likely related to sepsis syndrome. Condition critical. Case reviewed in detail with the treating house staff. Thank you for the referral. SHALINI CASTRO M.D. JOSÉ MIGUEL/[id number]
[2019-07-12] MEDS: CHLORHEXIDINE GLUCONATE 4% CLEANSER FOR DECOLONIZATION TP SCH (21:22)
[2019-07-13] MEDS ORDERED: CEFEPIME HCL 1 GM VIAL (RESTRICTED TO ID) ONE ×3 (00:43→17:03)
[2019-07-13] MEDS ORDERED: DEXTROSE 5%-WATER 100 ML IVPB ONE ×3 (00:43→17:03)
[2019-07-13] MEDS: FENTANYL INJECTION 500 MCG in DEXTROSE 5%-WATER - 90 ML IVPB SCH (00:52)
[2019-07-13] MEDS: CEFEPIME 1 GM in DEXTROSE 5%-WATER 100 ML IVPB SCH ×3 (02:10→17:19)
[2019-07-13] MEDS ORDERED: VANCOMYCIN 1 GM PREMIX - 1 GM/200 ML BAG IVPB SCH (04:00)
[2019-07-13] MEDS: NOREPINEPHRINE BITARTRATE 8,000 MCG in DEXTROSE 5%-WATER - 492 ML IV SCH (05:47)
[2019-07-13] MEDS: HEPARIN NA (PORCINE) 5,000 UNITS/ML 1ML VIAL SQ SCH ×3 (05:55→21:26)
[2019-07-13 05:56] LABS: URINE TOTAL VOLUME 1750 mL
[2019-07-13 06:07] LABS: URINE 24 HOUR UREA NITROGEN 545 G/24 (12-20); URINE UREA NITROGEN 545 MG/DL (350-1000)
--- NOTE | 2019-07-13 07:15 | ECHO ---
Version: 1 Name: ROBBIN BREWER Exam: Adult Echocardiogram Study Date: 07/12/2019, 10:55 AM Age: 88 Years MMode/2D Measurements & Calculations IVSd: 1.12 cm LVIDs: 3.5 cm LVIDd: 4.7 cm LVPWd: 1.02 cm LAV (MOD-bp): 47.8 ml LVOT diam: 2.02 cm Ao root diam: 3.3 cm LA dimension: 3.8 cm Doppler Measurements & Calculations Lat Peak E' Ross: 7.2 cm/sec Med Peak E' Ross: 3.7 cm/sec MR max P.2 mmHg Ao max P.8 mmHg Ao V2 max: 192.5 cm/sec AI P1/2t: 340.5 msec TR max ross: 248.4 cm/sec TR max P.2 mmHg Procedure The study was technically difficult with many images being suboptimal in quality. Left Ventricle The left ventricular size, thickness and function are normal. Right Ventricle The right ventricle is normal in size and function. Atria Normal left and right atrial size and function. Mitral Valve There is moderate mitral valve thickening. The mitral regurgitant jet is eccentrically directed. The re is moderate mitral regurgitation. Tricuspid Valve There is mild tricuspid valve thickening. There is mild tricuspid regurgitation. Right ventricular s ystolic pressure is normal. Aortic Valve The aortic valve is trileaflet. Moderate aortic regurgitation. Pulmonic Valve The pulmonic valve is not well visualized. Great Vessels The aortic root is normal size. Pericardium/Pleura There is no pericardial effusion. Summary Statements The left ventricular size, thickness and function are normal The right ventricle is normal in size and function. There is moderate mitral valve thickening. There is moderate mitral regurgitation. Moderate aortic regurgitation. Fish Ya 07/12/2019, 12:53 PM Ordering Physician: Gayle Ferrell Performed By: Lyric Bacon
--- NOTE | 2019-07-13 07:18 | PN ---
Progress Note (short form) - Note Progress Note: THORACIC SURGERY s/p Right CxT for iatrogenic pntx after right subclavian TLC. Patient remains sedated/intubated. CxT placed to [facility] yesterday afternoon and tolerated. CxT will most likely remain in until she is extubated. Cont ICU management. Surgery team to cont following. f/u CXR Problem List - Problems (1) Iatrogenic pneumothorax Code(s): J95.811 - POSTPROCEDURAL PNEUMOTHORAX (2) Respiratory failure Code(s): J96.90 - RESPIRATORY FAILURE, UNSP, UNSP W HYPOXIA OR HYPERCAPNIA Qualifiers: Chronicity: acute Respiratory failure complication: hypoxia and hypercapnia Qualified Code(s): J96.01 - Acute respiratory failure with hypoxia ; J96.02 - Acute respiratory failure with hypercapnia (3) Depression Code(s): F32.9 - MAJOR DEPRESSIVE DISORDER, SINGLE EPISODE, UNSPECIFIED Qualifiers: Depression Type: unspecified Qualified Code(s): F32.9 - Major depressive disorder, single episode, unspecified (4) Diastolic dysfunction Code(s): I51.89 - OTHER ILL-DEFINED HEART DISEASES (5) Fall Code(s): W19.XXXA - UNSPECIFIED FALL, INITIAL ENCOUNTER Qualifiers: Encounter type: initial encounter Qualified Code(s): W19.XXXA - Unspecified fall, initial encounter (6) HTN (hypertension) Code(s): I10 - ESSENTIAL (PRIMARY) HYPERTENSION Qualifiers: Hypertension type: essential hypertension Qualified Code(s): I10 - Essential (primary) hypertension
--- NOTE | 2019-07-13 08:07 | PN ---
Teaching Attending Note Name of Resident: Enrrique Lin ATTENDING PHYSICIAN STATEMENT I saw and evaluated the patient. I reviewed the resident's note and discussed the case with the resident. I agree with the resident's findings and plan as documented. SUBJECTIVE: Patient is intubated , eyes open, comfortable with nad. able to understand when ask her some questions. Vital Signs Temperature 98.0 F 07/13/19 05:41 Pulse Rate 66 07/13/19 06:04 Respiratory Rate 20 07/13/19 06:38 Blood Pressure 119/34 L 07/13/19 06:04 O2 Sat by Pulse Oximetry (%) 100 07/12/19 21:00 GENERAL: The patient is Intubated, sedated, HEAD: Normal with no signs of trauma. EYES:round small pupils, reactive to light ENT: Ears normal, nares patent, oropharynx clear without exudates, moist mucous membranes. NECK: Trachea midline, full range of motion, supple. LUNGS: Breath sounds equal, clear to auscultation bilaterally, no wheezes, no crackles, no accessory muscle use. HEART: RRR, 2/6 SM at apex which is heard louder in L axilla. 3/6 SM heard in back. . No JVD ABDOMEN: Soft, soft, hypoactive BS. no grimacing with palpation EXTREMITIES: 2+ pulses, warm, well-perfused,2+ pitting edemas NEUROLOGICAL: Cranial nerves II through XII grossly intact. Normal speech, gait not observed. PSYCH: Normal mood, normal affect. SKIN: Warm, dry, normal turgor, no rashes or lesions noted CBCD WBC 12.1 K/mm3 (4.0-10.0) H 07/12/19 06:00 RBC 3.87 M/mm3 (3.60-5.2) 07/12/19 06:00 Hgb 11.6 GM/dL (10.7-15.3) 07/12/19 06:00 Hct 34.5 % (32.4-45.2) 07/12/19 06:00 MCV 89.3 fl (80-96) 07/12/19 06:00 MCHC 33.7 g/dl (32.0-36.0) 07/12/19 06:00 RDW 13.0 % (11.6-15.6) 07/12/19 06:00 Plt Count 162 K/MM3 (134-434) 07/12/19 06:00 MPV 9.8 fl (7.5-11.1) 07/12/19 06:00 CMP Sodium 126 mmol/L (136-145) L 07/12/19 06:00 Potassium 4.0 mmol/L (3.5-5.1) 07/12/19 06:00 Chloride 90 mmol/L (98-107) L 07/12/19 06:00 Carbon Dioxide 26 mmol/L (21-32) 07/12/19 06:00 Anion Gap 10 MMOL/L (8-16) 07/12/19 06:00 BUN 35.5 mg/dL (7-18) H 07/12/19 06:00 Creatinine 1.1 mg/dL (0.55-1.3) 07/12/19 06:00 Random Glucose 130 mg/dL (74-106) H 07/12/19 06:00 Calcium 7.4 mg/dL (8.5-10.1) L 07/12/19 06:00 Total Bilirubin 0.7 mg/dL (0.2-1) 07/12/19 13:50 AST 379 U/L (15-37) H 07/12/19 13:50 ALT 485 U/L (13-61) H 07/12/19 13:50 Alkaline Phosphatase 66 U/L (45-117) 07/12/19 13:50 Total Protein 5.1 g/dl (6.4-8.2) L 07/12/19 13:50 Albumin 2.9 g/dl (3.4-5.0) L 07/12/19 13:50 CARDIAC ENZYMES Troponin I 0.89 ng/ml (0.00-0.05) H* 07/12/19 13:50 Current Medications Generic Name Dose Route Start Last Admin Trade Name Freq PRN Reason Stop Dose Admin Chlorhexidine Gluconate 1 applic 07/12/19 22:00 07/12/19 21:22 Hibiclens For Decolonization - TP 1 applic HS LISA Administration Heparin Sodium (Porcine) 5,000 unit 07/12/19 14:00 07/13/19 05:55 Heparin - SQ 5,000 unit TID LISA Administration Fentanyl 500 mcg/ Dextrose 100 mls @ 4 mls/hr 07/12/19 00:15 07/13/19 00:52 IVPB 50 mcg/hr TITR LISA 10 mls/hr Administration 20 MCG/HR Norepinephrine Bitartrate 8, 500 mls @ 5.61 mls/hr 07/12/19 05:30 07/13/19 06 :04 000 mcg/ Dextrose IV 0.08 mcg/kg/min ASDIR LISA 15 mls/hr Titration Protocol 0.03 MCG/KG/MIN Propofol 1,000,000 mcg in 100 mls @ 2.82 mls/hr 07/12/19 06:30 07/13/19 05:48 Diprivan - IVPB 15 mcg/kg/min TITR LISA 4.23 mls/hr Titration Protocol 10 MCG/KG/MIN Cefepime HCl 1 gm/ Dextrose 100 mls @ 100 mls/hr 07/12/19 18:00 07/13/19 02: 10 IVPB 100 mls/hr Q8H-IV LISA Administration Protocol Vancomycin HCl 1,000 mg in 250 mls @ 200 mls/hr 07/12/19 11:30 07/12/19 13:07 Vancomycin (Pre-Docked) IVPB 200 mls/hr Q24H LISA Administration Protocol Sodium Chloride 1,000 mls @ 83 mls/hr 07/12/19 13:30 07/12/19 14:40 Normal Saline - IV 83 mls/hr ASDIR LISA Administration Mupirocin 1 applic 07/12/19 10:00 07/12/19 21:22 Bactroban Ointment (For Decolonization) - NS 07/17/19 09:59 1 applic BID LISA Administration Home Medications Medication Instructions Recorded LORazepam [Lorazepam] 0.5 mg PO TID 07/07/19 Sertraline HCl 50 mg PO DAILY 07/07/19 traZODone HCL [Trazodone HCl] 50 mg PO DAILY 07/07/19 Acetaminophen [Tylenol 1,000 mg PO Q6H PRN #0 tablet 07/08/19 .Extra-Strength -] Calcium 500Mg/Vit-D 200 Units 1 tab PO BID 30 Days #60 tab 07/08/19 [Os-Silvio 500+D -] Metoprolol Succinate [Toprol XL -] 25 mg PO DAILY 30 Days #30 12/13/19 tab.sr.24h Amox-Tr/K Cl [Augmentin - 875Mg 1 tab PO BID #14 tablet 07/09/19 Tablet] Microbiology 07/12/19 00:11 Blood - Peripheral Venous Blood Culture - Preliminary NO GROWTH OBTAINED AFTER 24 HOURS, INCUBATION TO CONTINUE FOR 4 DAYS. 07/12/19 00:30 Blood - Peripheral Venous Blood Culture - Preliminary NO GROWTH OBTAINED AFTER 24 HOURS, INCUBATION TO CONTINUE FOR 4 DAYS. Urine Test Results Urine Color Yellow 07/12/19 00:11 Urine Appearance Cloudy 07/12/19 00:11 Urine pH 5.0 (5.0-8.0) D 07/12/19 00:11 Ur Specific Humphrey 1.019 (1.010-1.035) 07/12/19 00:11 Urine Protein 1+ (NEGATIVE) H 07/12/19 00:11 Urine Glucose (UA) Negative (NEGATIVE) 07/12/19 00:11 Urine Ketones Negative (NEGATIVE) 07/12/19 00:11 Urine Blood 1+ (NEGATIVE) H 07/12/19 00:11 Urine Nitrite Negative (NEGATIVE) 07/12/19 00:11 Urine Bilirubin Negative (NEGATIVE) 07/12/19 00:11 Ur Leukocyte Esterase Negative (NEGATIVE) 07/12/19 00:11 ABG Results ABG pH 7.41 (7.35-7.45) 07/12/19 01:14 ABG pCO2 at Pt Temp 36.0 mmHg (35-45) 07/12/19 01:14 ABG pO2 at Pt Temp 339 mmHg (80-100) H 07/12/19 01:14 ABG HCO3 22.1 mmol/L (22-27) 07/12/19 01:14 ABG O2 Sat (Measured) 99.7 % (95-98) H 07/12/19 01:14 ABG O2 Content No Result Required. 07/12/19 01:14 ABG Base Excess -1.6 meq/l (-2-2) 07/12/19 01:14 ASSESSMENT AND PLAN: Patient is an 88 y/of with Pmhx of diastolic dysfunction , HTN, depression, chronic R subdural hematoma , h/o ETOH abuse, R carotid artery stenosis, with a recent admission for PNA , and UTI, during which she had NSVT, was admitted for acute AMS and with acute hypoximia , hypercapnic resp failure. #S/p ptx ; chest tube placed and lung expanded, continue chest tube on water seal if lung remains expanded. Would not dc until recovery more likely. on the case. # Acute hypoxic hypercapnic respiratory failure s/p intubation. due to due to PNA, Vent management per ICU team # Acute diastolic heart failure ( hyponatremia, elevated BNP, b/l pleural effusions, LE edema,) last echo reviewed. repeat echo # Septic shock due to PNA: continue Abx , on levophed continue with MAP>65 # Acute PNA: cefepime and vanco ; follow blood and urine cx , obtain flu swab , obtain Urine tox # HARJINDER: likely prerenal. improved , monitor cr. no need fro renal US # Acute Hyponatremia: could be due to acute heart failure VS poor po intake; urine electrolytes pending # Acute Transaminitis: could be due to sepsis, vs passive liver congestion from heart failure. tylenol level is low. - repeat liver function , US of liver # R pneumothorax s/p TLC per ED: resolved on repeat cxray , repeT CXR # ELEvated trop: EKG with new inverted TW in anterioseptal leads and L axis deviation which are new compared to EKG form last admission - can't r/o NSTEMi but demand ischemia from sepsis and hypoxia is possible DVT PX : add heparin SQ
[2019-07-13 08:08] LABS: BASO % 0.3 % (0-2.0); EOS % 0.2 % (0-4.5); HEMATOCRIT 34.5 % (32.4-45.2); HEMOGLOBIN 11.6 GM/dL (10.7-15.3); MCH 30.2 pg (25.7-33.7); MCHC 33.6 g/dl (32.0-36.0); MEAN CELL VOLUME 89.8 fl (80-96); MEAN PLT VOLUME 9.9 fl (7.5-11.1); MONO % 8.3 % (3.8-10.2); NEUT % 80.2 % (42.8-82.8); PLATELET COUNT 211 K/MM3 (134-434); RBC 3.84 M/mm3 (3.60-5.2); RDW 13.5 % (11.6-15.6); WHITE BLOOD COUNT 13.4 K/mm3 (4.0-10.0)
[2019-07-13 08:19] LABS: ALBUMIN 2.8 g/dl (3.4-5.0); BILIRUBIN,TOTAL 0.8 mg/dL (0.2-1); BLOOD UREA NITROGEN 26.8 mg/dL (7-18); CALCIUM 7.8 mg/dL (8.5-10.1); CREATININE 0.5 mg/dL (0.55-1.3); MAGNESIUM 2.5 mg/dL (1.8-2.4); PHOSPHOROUS 2.3 mg/dL (2.5-4.9); POTASSIUM 3.6 mmol/L (3.5-5.1)
--- NOTE | 2019-07-13 08:58 | PN ---
Physical Exam: SUBJECTIVE: Patient seen and examined in bed, intubated and on ventilator CAIO 2. She opens eyes to loud verbal commands. OBJECTIVE: Vital Signs Period Temp Pulse Resp BP Sys/Da Silva Pulse Ox Last 24 Hr 97.4 F-99.9 F 62-80 16-20 93-138/28-45 97-100 VENT SETTIN, 20, 5, 100% GENERAL: Intubated and sedated. HEAD: NC. 3 cm healed, vertical laceration on RIGHT zoroastrian EYES: 2 mm pupils. Reactive to light and accommodation. ENT: Ears normal, nares patent, oropharynx clear without exudates. Moist mucous membranes. ET in place. LUNGS: CTAB. No wheezes, and no crackles. No accessory muscle use. HEART: RRR s1 s2. 2/6 systolic murmur radiating to back. ABDOMEN: Soft, BS present in all 4 quadrants, non-distended, no JVD, MUSCULOSKELETAL: No bony deformities or tenderness. Chest tube in place on RIGHT UPPER EXTREMITIES: 2+ pulses, warm, well-perfused. No cyanosis. No clubbing. No peripheral edema. LOWER EXTREMITIES: 2+ pulses, warm, well-perfused. No calf tenderness. No peripheral edema. SKIN: 2x5 RUE ecchymosis. Warm, dry, normal turgor, normal capillary refill. Laboratory Results - last 24 hr 07/12/19 07/12/19 07/12/19 06:00 10:45 11:31 WBC RBC Hgb Hct MCV MCH MCHC RDW Plt Count MPV Absolute Neuts (auto) Neutrophils % Lymphocytes % Monocytes % Eosinophils % Basophils % Nucleated RBC % Sodium 126 L Potassium 4.0 Chloride 90 L Carbon Dioxide 26 Anion Gap 10 BUN 35.5 H Creatinine 1.1 Est GFR (CKD-EPI)AfAm 52.65 Est GFR (CKD-EPI)NonAf 45.42 POC Glucometer 84 Random Glucose 130 H Calcium 7.4 L Phosphorus 2.8 Magnesium 1.7 L Total Bilirubin Direct Bilirubin AST 495 H ALT 503 H Alkaline Phosphatase Creatine Kinase Troponin I 0.93 H* Total Protein Albumin Urine Osmolality Ur Random Sodium Urine Collection Time Urine Total Volume Ur Urea Nitrogen 24 Hr Opiates Screen Methadone Screen Acetaminophen 5.2 Barbiturate Screen Phencyclidine Screen Ur Amphetamines Screen MDMA (Ecstasy) Screen Benzodiazepines Screen Cocaine Screen U Marijuana (THC) Screen Influenza A (Rapid) Influenza B (Rapid) RSV Rapid 07/12/19 07/12/19 07/12/19 13:50 13:55 13:55 WBC RBC Hgb Hct MCV MCH MCHC RDW Plt Count MPV Absolute Neuts (auto) Neutrophils % Lymphocytes % Monocytes % Eosinophils % Basophils % Nucleated RBC % Sodium Potassium Chloride Carbon Dioxide Anion Gap BUN Creatinine Est GFR (CKD-EPI)AfAm Est GFR (CKD-EPI)NonAf POC Glucometer Random Glucose Calcium Phosphorus Magnesium Total Bilirubin 0.7 Direct Bilirubin 0.2 AST 379 H ALT 485 H Alkaline Phosphatase 66 Creatine Kinase Troponin I 0.89 H* Total Protein 5.1 L Albumin 2.9 L Urine Osmolality 460 Ur Random Sodium 10 L Urine Collection Time Urine Total Volume Ur Urea Nitrogen 24 Hr Opiates Screen Methadone Screen Acetaminophen Barbiturate Screen Phencyclidine Screen Ur Amphetamines Screen MDMA (Ecstasy) Screen Benzodiazepines Screen Cocaine Screen U Marijuana (THC) Screen Influenza A (Rapid) Influenza B (Rapid) RSV Rapid 07/12/19 07/12/19 07/12/19 13:55 17:00 23:38 WBC RBC Hgb Hct MCV MCH MCHC RDW Plt Count MPV Absolute Neuts (auto) Neutrophils % Lymphocytes % Monocytes % Eosinophils % Basophils % Nucleated RBC % Sodium Potassium Chloride Carbon Dioxide Anion Gap BUN Creatinine Est GFR (CKD-EPI)AfAm Est GFR (CKD-EPI)NonAf POC Glucometer 91 80 Random Glucose Calcium Phosphorus Magnesium Total Bilirubin Direct Bilirubin AST ALT Alkaline Phosphatase Creatine Kinase Troponin I Total Protein Albumin Urine Osmolality Ur Random Sodium Urine Collection Time Urine Total Volume Ur Urea Nitrogen 24 Hr Opiates Screen Negative Methadone Screen Negative Acetaminophen Barbiturate Screen Negative Phencyclidine Screen Negative Ur Amphetamines Screen Negative MDMA (Ecstasy) Screen Negative Benzodiazepines Screen Negative Cocaine Screen Negative U Marijuana (THC) Screen Negative Influenza A (Rapid) Influenza B (Rapid) RSV Rapid 07/12/19 07/12/19 07/13/19 Unknown Unknown 05:30 WBC RBC Hgb Hct MCV MCH MCHC RDW Plt Count MPV Absolute Neuts (auto) Neutrophils % Lymphocytes % Monocytes % Eosinophils % Basophils % Nucleated RBC % Sodium Potassium Chloride Carbon Dioxide Anion Gap BUN Creatinine Est GFR (CKD-EPI)AfAm Est GFR (CKD-EPI)NonAf POC Glucometer Random Glucose Calcium Phosphorus Magnesium Total Bilirubin Direct Bilirubin AST ALT Alkaline Phosphatase Creatine Kinase Troponin I Total Protein Albumin Urine Osmolality Ur Random Sodium Urine Collection Time 24 Urine Total Volume 1750 Ur Urea Nitrogen 24 Hr 545 H Opiates Screen Methadone Screen Acetaminophen Barbiturate Screen Phencyclidine Screen Ur Amphetamines Screen MDMA (Ecstasy) Screen Benzodiazepines Screen Cocaine Screen U Marijuana (THC) Screen Influenza A (Rapid) Negative Influenza B (Rapid) Negative RSV Rapid Negative 07/13/19 07/13/19 07/13/19 05:45 05:45 05:45 WBC 13.4 H RBC 3.84 Hgb 11.6 Hct 34.5 MCV 89.8 MCH 30.2 MCHC 33.6 RDW 13.5 Plt Count 211 D MPV 9.9 Absolute Neuts (auto) 10.8 H Neutrophils % 80.2 Lymphocytes % 11.0 Monocytes % 8.3 Eosinophils % 0.2 D Basophils % 0.3 Nucleated RBC % 0 Sodium 132 L Potassium 3.6 Chloride 97 L Carbon Dioxide 25 Anion Gap 10 BUN 26.8 H Creatinine 0.5 L Est GFR (CKD-EPI)AfAm 101.57 Est GFR (CKD-EPI)NonAf 87.64 POC Glucometer Random Glucose 62 L Calcium 7.8 L Phosphorus 2.3 L Magnesium 2.5 H Total Bilirubin 0.8 Direct Bilirubin AST 214 H ALT 375 H Alkaline Phosphatase 66 Creatine Kinase 100 Troponin I 0.36 H Total Protein 5.0 L Albumin 2.8 L Urine Osmolality Ur Random Sodium Urine Collection Time Urine Total Volume Ur Urea Nitrogen 24 Hr Opiates Screen Methadone Screen Acetaminophen Barbiturate Screen Phencyclidine Screen Ur Amphetamines Screen MDMA (Ecstasy) Screen Benzodiazepines Screen Cocaine Screen U Marijuana (THC) Screen Influenza A (Rapid) Influenza B (Rapid) RSV Rapid 07/13/19 06:18 WBC RBC Hgb Hct MCV MCH MCHC RDW Plt Count MPV Absolute Neuts (auto) Neutrophils % Lymphocytes % Monocytes % Eosinophils % Basophils % Nucleated RBC % Sodium Potassium Chloride Carbon Dioxide Anion Gap BUN Creatinine Est GFR (CKD-EPI)AfAm Est GFR (CKD-EPI)NonAf POC Glucometer 82 Random Glucose Calcium Phosphorus Magnesium Total Bilirubin Direct Bilirubin AST ALT Alkaline Phosphatase Creatine Kinase Troponin I Total Protein Albumin Urine Osmolality Ur Random Sodium Urine Collection Time Urine Total Volume Ur Urea Nitrogen 24 Hr Opiates Screen Methadone Screen Acetaminophen Barbiturate Screen Phencyclidine Screen Ur Amphetamines Screen MDMA (Ecstasy) Screen Benzodiazepines Screen Cocaine Screen U Marijuana (THC) Screen Influenza A (Rapid) Influenza B (Rapid) RSV Rapid Active Medications Chlorhexidine Gluconate (Hibiclens For Decolonization -) 1 applic TP HS LISA Last Admin: 07/12/19 21:22 Dose: 1 applic Heparin Sodium (Porcine) (Heparin -) 5,000 unit SQ TID LISA Last Admin: 07/13/19 14:00 Dose: 5,000 unit Fentanyl 500 mcg/ Dextrose 100 mls @ 4 mls/hr IVPB TITR LISA Last Admin: 07/13/19 00:52 Dose: 50 mcg/hr, 10 mls/hr Norepinephrine Bitartrate 8, (000 mcg/ Dextrose) 500 mls @ 5.61 mls/hr IV ASDIR LISA; Protocol Last Titration: 07/13/19 06:04 Dose: 0.08 mcg/kg/min, 15 mls/hr Propofol (Diprivan -) 1,000,000 mcg in 100 mls @ 2.82 mls/hr IVPB TITR [facility]; Protocol Last Titration: 07/13/19 05:48 Dose: 15 mcg/kg/min, 4.23 mls/hr Cefepime HCl 1 gm/ Dextrose 100 mls @ 100 mls/hr IVPB Q8H-IV LISA; Protocol Last Admin: 07/13/19 09:07 Dose: 100 mls/hr Vancomycin HCl (Vancomycin (Pre-Docked)) 1,000 mg in 250 mls @ 200 mls/hr IVPB Q24H LISA; Protocol Last Admin: 07/13/19 12:18 Dose: 200 mls/hr Sodium Chloride (Normal Saline -) 1,000 mls @ 83 mls/hr IV ASDIR LISA Last Admin: 07/13/19 15:00 Dose: 83 mls/hr Mupirocin (Bactroban Ointment (For Decolonization) -) 1 applic NS BID [facility] Stop: 07/17/19 09:59 Last Admin: 07/13/19 09:07 Dose: 1 applic ASSESSMENT/PLAN: 88 female PMH HTN, HFpEF, depression, chronic RIGHT subdural hematoma, ETOH abuse, RIGHT carotid artery stenosis, and recent admission for PNA and UTI. Pt brought to hospital after lack of responsiveness and desaturating to the 80s. She was admitted for care of acute hypoxic, hypercapnic respiratory failure. AC Mode of vent, 40% FiO2. No air leak noted on pleural catheter; drain 10 cc overnight. # Acute hypoxic, hypercapnic respiratory failure: Physiologic changes of sepsis vs PNA vs exacerbation of HF - Acute diastolic heart failure: hyponatremia 126 to 132, elevated BNP , BL pleural effusions, BL LE edema - Anticipate possible extubation tomorrow - Flu swab NEGATIVE - Continue cefepime 1 g IV q8h and vancomycin 1 g IV qd - F/u sputum culture - F/u urinary antigens - 3 mcq NE for hemodynamic support, maintain MAP > 65 - Repeat echo: mitral valve regurg, aortic regurg. Echo done 07/07/19: EF 55-60% , mild MR, pulm HTN, & AR - F/u urine and blood culture - Flu swab - F/u urine tox # HARJINDER - Improving BUN/Cr 26.8/0.5 - Cr dropped from 1.1 to 0.5 - Avoid aggressive hydration # Hyponatremia: HF vs poor po intake - F/u urine electrolytes: high urineurea nitrogen 545 - I/o: 1500mL out overnight - Daily weights # Transaminitis: hypotension vs toxicity vs sepsis vs liver congestion 2/2 heart failure - Repeat liver function improved 214/375 - US of liver: fatty liver VS hepatocellular disease. 8x9 possible cyst in pancreatic head. Recommend MRI. - Acetominophen level 5.2, WNL # Sepsis with septic shock: Likely due to PNA - Taper off Levo - Continue antibiotics for PNA # RIGHT pneumothorax - Resolved on repeat CXR - F/u CXR in AM # Troponemia - 0.88 -> 0.93 plateau now - Possibly 2/2 sepsis (demand ischemia, hypoxia) - EKG with new inverted TWI anterioseptal leads and L axis deviation which are new compared to EKG form last admission (possible NSTEMI) - F/u repeat troponin and if elevated, consider heparin drip - Consult cardiology # Leukocytosis - PNA vs left shift - Resolving # Hypophosphatemia - Repleted with K phos 30 mg IV # F/E/N - NS - Cont. to monitor - Enteral feeds if unable to extubate # DVT prophylaxis - Heparin SQ # Disposition - Full code - ICU monitoring Enrrique Lin MD Visit type - Emergency Visit Emergency Visit: No - New Patient This patient is new to me today: No - Critical Care Critical Care patient: Yes Total Critical Care Time (in minutes): 40 Critical Care Statement: The care of this patient involved high complexity decision making to prevent further life threatening deterioration of the patient 's condition and/or to evaluate & treat vital organ system(s) failure or risk of failure. ATTENDING PHYSICIAN STATEMENT I saw and evaluated the patient. I reviewed the resident's note and discussed the case with the resident. I agree with the resident's findings and plan as documented. SUBJECTIVE: OBJECTIVE: ASSESSMENT AND PLAN:
[2019-07-13] MEDS: MUPIROCIN 2% TOPICAL OINTMENT FOR DECOLONIZATION NS SCH ×2 (09:07→21:23)
--- NOTE | 2019-07-13 09:45 | PN ---
Progress Note (short form) - Note Progress Note: chart reviewed intubated and sedated arousable intubated in ED 07/12 s/p chest tube placement for PTX Vital Signs Period Temp Pulse Resp BP Sys/Da Silva Pulse Ox Last 24 Hr 97.4 F-99.9 F 62-80 16-20 93-141/28-45 97-100 cor-rrr lungs decreased bs at bases +chest tube abd soft,nt ext no edema +sutures left jewish with ecchymosis CBC, BMP 07/13/19 05:45 07/13/19 05:45 Microbiology 07/12/19 00:11 Blood - Peripheral Venous Blood Culture - Preliminary NO GROWTH OBTAINED AFTER 24 HOURS, INCUBATION TO CONTINUE FOR 4 DAYS. 07/12/19 00:30 Blood - Peripheral Venous Blood Culture - Preliminary NO GROWTH OBTAINED AFTER 24 HOURS, INCUBATION TO CONTINUE FOR 4 DAYS. Active Medications Chlorhexidine Gluconate (Hibiclens For Decolonization -) 1 applic TP HS LISA Last Admin: 07/12/19 21:22 Dose: 1 applic Heparin Sodium (Porcine) (Heparin -) 5,000 unit SQ TID LISA Last Admin: 07/13/19 05:55 Dose: 5,000 unit Fentanyl 500 mcg/ Dextrose 100 mls @ 4 mls/hr IVPB TITR LISA Last Admin: 07/13/19 00:52 Dose: 50 mcg/hr, 10 mls/hr Norepinephrine Bitartrate 8, (000 mcg/ Dextrose) 500 mls @ 5.61 mls/hr IV ASDIR LISA; Protocol Last Titration: 07/13/19 06:04 Dose: 0.08 mcg/kg/min, 15 mls/hr Propofol (Diprivan -) 1,000,000 mcg in 100 mls @ 2.82 mls/hr IVPB TITR LISA; Protocol Last Titration: 07/13/19 05:48 Dose: 15 mcg/kg/min, 4.23 mls/hr Cefepime HCl 1 gm/ Dextrose 100 mls @ 100 mls/hr IVPB Q8H-IV LISA; Protocol Last Admin: 07/13/19 09:07 Dose: 100 mls/hr Vancomycin HCl (Vancomycin (Pre-Docked)) 1,000 mg in 250 mls @ 200 mls/hr IVPB Q24H LISA; Protocol Last Admin: 07/12/19 13:07 Dose: 200 mls/hr Sodium Chloride (Normal Saline -) 1,000 mls @ 83 mls/hr IV ASDIR LISA Last Admin: 07/12/19 14:40 Dose: 83 mls/hr Mupirocin (Bactroban Ointment (For Decolonization) -) 1 applic NS BID LISA Stop: 07/17/19 09:59 Last Admin: 07/13/19 09:07 Dose: 1 applic a/p respiratory failure pneumonia abnl lfts +troponins PTX continue vanco/cefepime sputum culture ordered urinary antigens ordered
[2019-07-13] MEDS: VANCOMYCIN 1 GRAM (PRE-DOCKED) 1,000 MG/250 ML BAG IVPB SCH (12:18)
--- NOTE | 2019-07-13 12:25 | PN ---
Teaching Attending Note Name of Resident: Zoila Espinosa ATTENDING PHYSICIAN STATEMENT I saw and evaluated the patient. I reviewed the resident's note and discussed the case with the resident. I agree with the resident's findings and plan as documented. SUBJECTIVE: Pt seen and examined in the ICU. Remains intubated, arousable off sedation. Remains on levophed gtt. OBJECTIVE: Vital Signs Period Temp Pulse Resp BP Sys/Da Silva Pulse Ox Last 24 Hr 97.4 F-99.9 F 62-80 16-20 102-141/28-44 100-100 Intake & Output 07/10/19 07/11/19 07/12/19 07/13/19 23:59 23:59 23:59 23:59 Intake Total 1804.6 782 Output Total 675 1530 Balance 1129.6 -748 Weight 49.895 kg 47 kg 52.435 kg Gen: intubated, arousable Heart: RRR Lung: decreased breath sounds at the bases Abd: soft, nontender Ext: RUE edema CBC, BMP 07/13/19 05:45 07/13/19 05:45 Active Medications Chlorhexidine Gluconate (Hibiclens For Decolonization -) 1 applic TP HS LISA Last Admin: 07/12/19 21:22 Dose: 1 applic Heparin Sodium (Porcine) (Heparin -) 5,000 unit SQ TID LISA Last Admin: 07/13/19 05:55 Dose: 5,000 unit Fentanyl 500 mcg/ Dextrose 100 mls @ 4 mls/hr IVPB TITR [facility] Last Admin: 07/13/19 00:52 Dose: 50 mcg/hr, 10 mls/hr Norepinephrine Bitartrate 8, (000 mcg/ Dextrose) 500 mls @ 5.61 mls/hr IV ASDIR LISA; Protocol Last Titration: 07/13/19 06:04 Dose: 0.08 mcg/kg/min, 15 mls/hr Propofol (Diprivan -) 1,000,000 mcg in 100 mls @ 2.82 mls/hr IVPB TITR [facility]; Protocol Last Titration: 07/13/19 05:48 Dose: 15 mcg/kg/min, 4.23 mls/hr Cefepime HCl 1 gm/ Dextrose 100 mls @ 100 mls/hr IVPB Q8H-IV LISA; Protocol Last Admin: 07/13/19 09:07 Dose: 100 mls/hr Vancomycin HCl (Vancomycin (Pre-Docked)) 1,000 mg in 250 mls @ 200 mls/hr IVPB Q24H [facility]; Protocol Last Admin: 07/13/19 12:18 Dose: 200 mls/hr Sodium Chloride (Normal Saline -) 1,000 mls @ 83 mls/hr IV ASDIR LISA Last Admin: 07/12/19 14:40 Dose: 83 mls/hr Mupirocin (Bactroban Ointment (For Decolonization) -) 1 applic NS BID LISA Stop: 07/17/19 09:59 Last Admin: 07/13/19 09:07 Dose: 1 applic ASSESSMENT AND PLAN: Acute Hypoxic and Hypercapneic Respiratory Failure Pneumonia Septic Shock Acute Kidney Injury Lactic Acidosis +Troponins likely Demand Ischemia Elevated LFTs likely Ischemic Injury Hyponatremia Right Pneumothorax s/p chest tube placement LV Diastolic Dysfunction Chronic Subdural Hematoma - continue antibiotics - f/u cultures - send urinary antigens - IVF - monitor urine output, creatinine - taper levophed gtt to maintain MAP >65 - daily sedation vacations to assess mental status - spontaneous breathing trials as tolerated - enteral feeds if unable to extubate - DVT/GI prophylaxis - continue ICU monitoring critical care time spent in reviewing chart, evaluating patient and formulating plan 35 min
--- NOTE | 2019-07-13 13:20 | PN ---
Progress Note, Physician History of Present Illness: Arousable on vent, remains on levophed gtt, right chest tube in place. - Current Medication List Current Medications: Active Medications Chlorhexidine Gluconate (Hibiclens For Decolonization -) 1 applic TP HS LISA Last Admin: 07/12/19 21:22 Dose: 1 applic Heparin Sodium (Porcine) (Heparin -) 5,000 unit SQ TID LISA Last Admin: 07/13/19 05:55 Dose: 5,000 unit Fentanyl 500 mcg/ Dextrose 100 mls @ 4 mls/hr IVPB TITR LISA Last Admin: 07/13/19 00:52 Dose: 50 mcg/hr, 10 mls/hr Norepinephrine Bitartrate 8, (000 mcg/ Dextrose) 500 mls @ 5.61 mls/hr IV ASDIR LISA; Protocol Last Titration: 07/13/19 06:04 Dose: 0.08 mcg/kg/min, 15 mls/hr Propofol (Diprivan -) 1,000,000 mcg in 100 mls @ 2.82 mls/hr IVPB TITR LISA; Protocol Last Titration: 07/13/19 05:48 Dose: 15 mcg/kg/min, 4.23 mls/hr Cefepime HCl 1 gm/ Dextrose 100 mls @ 100 mls/hr IVPB Q8H-IV LISA; Protocol Last Admin: 07/13/19 09:07 Dose: 100 mls/hr Vancomycin HCl (Vancomycin (Pre-Docked)) 1,000 mg in 250 mls @ 200 mls/hr IVPB Q24H [facility]; Protocol Last Admin: 07/13/19 12:18 Dose: 200 mls/hr Sodium Chloride (Normal Saline -) 1,000 mls @ 83 mls/hr IV ASDIR LISA Last Admin: 07/12/19 14:40 Dose: 83 mls/hr Mupirocin (Bactroban Ointment (For Decolonization) -) 1 applic NS BID LISA Stop: 07/17/19 09:59 Last Admin: 07/13/19 09:07 Dose: 1 applic - Objective Vital Signs: Vital Signs Temperature 98.3 F 07/13/19 10:00 Pulse Rate 80 07/13/19 12:00 Respiratory Rate 26 H 07/13/19 12:38 Blood Pressure 141/43 L 07/13/19 12:00 O2 Sat by Pulse Oximetry (%) 98 07/13/19 12:38 Constitutional: Yes: No Distress, Calm, Thin Neck: Yes: Supple Cardiovascular: Yes: Regular Rate and Rhythm Respiratory: Yes: Intubated, Mechanically Ventilated, Rhonchi, Other (Right chest tube in place) Gastrointestinal: Yes: Soft, Hypoactive Bowel Sounds Genitourinary: Yes: Mills Present Edema: No Labs: CBC, BMP 07/13/19 05:45 07/13/19 05:45 INR, PTT INR 1.34 (0.83-1.09) H 07/12/19 06:00 - ....Imaging Chest X-ray: Report Reviewed (right chest tube, left effusion) EKG: Report Reviewed (Tele: NSR PAC) Problem List - Problems (1) Respiratory failure Code(s): J96.90 - RESPIRATORY FAILURE, UNSP, UNSP W HYPOXIA OR HYPERCAPNIA Qualifiers: Chronicity: acute Respiratory failure complication: hypoxia and hypercapnia Qualified Code(s): J96.01 - Acute respiratory failure with hypoxia ; J96.02 - Acute respiratory failure with hypercapnia (2) Diastolic dysfunction Code(s): I51.89 - OTHER ILL-DEFINED HEART DISEASES (3) Demand ischemia Code(s): I24.8 - OTHER FORMS OF ACUTE ISCHEMIC HEART DISEASE (4) Ischemic hepatitis Code(s): K75.9 - INFLAMMATORY LIVER DISEASE, UNSPECIFIED (5) Septic shock Code(s): A41.9 - SEPSIS, UNSPECIFIED ORGANISM; R65.21 - SEVERE SEPSIS WITH SEPTIC SHOCK (6) Iatrogenic pneumothorax Code(s): J95.811 - POSTPROCEDURAL PNEUMOTHORAX Assessment/Plan 07/12/2019 echo: Normal biventrucular size and fxn, mod MR, AR 1. Acute Hypoxic and Hypercapneic Respiratory Failure 2. Pneumonia 3. Septic Shock 4. Coronary artery disease with demand ischemic injury angina pectoris/elevated troponin I level related to sepsis syndrome 5. Diastolic left ventricular dysfunction with clinical class 0-I [place] [employer] classification left ventricular failure/elevated B-type natriuretic peptide- most likely related to sepsis syndrome 6. Hypertensive cardiovascular disease, hypotension related to the above-noted sepsis syndrome 7. History of non-sustained ventricular tachycardia 8. Aortic valve regurgitation 9. Tricuspid valve regurgitation with moderate degree of pulmonary hypertension 10. History of carotid stenosis, moderate in severity 11. Iatrogenic pneumothorax post right chest tube insertion/complication of subclavian line insertion 12. Abnormal liver function testing trending down, likely shock liver 13. Hyponatremia 14. Chronic Subdural Hematoma PLAN: 1. Antibiotics per C&S, taper levophed gtt to maintain MAP >65 2. Recommend initiation of beta-tino, JOHANNA inhibitor or angiotensin receptor tino therapy, hemodynamics permitting (once off of pressor therapy) 3. Recommend initiation of Aspirin therapy, no clear indication for initiation of anticoagulation therapy the above noted troponin I elevation is related to demand ischemic injury not a primary myocardial event. 4. Ventilator management as per the critical care team, enteral feeds if unable to extubate, daily sedation vacations to assess mental status, spontaneous breathing trials as tolerated 5. Chest tube management as per the critical care team 6. Correction of hyponatremia, not convinced that the above noted hyponatremia is related to congestive heart failure (BNP elevation most likely related to sepsis syndrome) 7. DVT/GI prophylaxis
[2019-07-13] MEDS: SODIUM CHLORIDE 1,000 ML IV SCH (15:00)
--- NOTE | 2019-07-13 15:09 | PN ---
Physical Exam: SUBJECTIVE: Patient seen and examined. Intubated, sedated. Continuing abx. Chest tube to water seal. Daily sedation vacations. OBJECTIVE: Vital Signs Period Temp Pulse Resp BP Sys/Da Silva Pulse Ox Last 24 Hr 97.4 F-99.6 F 62-80 16-26 102-144/28-43 98-100 GENERAL: Intubated, sedated, on vent. HEENT: PERRLA. LUNGS: B/l LL rales. R chest tube in place on water seal no air leak. HEART: RRR S1S2 heard no murmurs. ABDOMEN: Soft NTND. + BS EXTREMITIES: 2+ pulses, warm, well-perfused, no edema. NEUROLOGICAL: sedated SKIN: RUE bruising noted, present on admission Laboratory Results - last 24 hr 07/12/19 07/12/19 07/12/19 13:50 13:55 13:55 WBC RBC Hgb Hct MCV MCH MCHC RDW Plt Count MPV Absolute Neuts (auto) Neutrophils % Lymphocytes % Monocytes % Eosinophils % Basophils % Nucleated RBC % Sodium Potassium Chloride Carbon Dioxide Anion Gap BUN Creatinine Est GFR (CKD-EPI)AfAm Est GFR (CKD-EPI)NonAf POC Glucometer Random Glucose Calcium Phosphorus Magnesium Total Bilirubin 0.7 Direct Bilirubin 0.2 AST 379 H ALT 485 H Alkaline Phosphatase 66 Creatine Kinase Troponin I 0.89 H* Total Protein 5.1 L Albumin 2.9 L Urine Osmolality 460 Ur Random Sodium 10 L Urine Collection Time Urine Total Volume Ur Urea Nitrogen 24 Hr Opiates Screen Methadone Screen Barbiturate Screen Phencyclidine Screen Ur Amphetamines Screen MDMA (Ecstasy) Screen Benzodiazepines Screen Cocaine Screen U Marijuana (THC) Screen Blood Type Antibody Screen 07/12/19 07/12/19 07/12/19 13:55 17:00 23:38 WBC RBC Hgb Hct MCV MCH MCHC RDW Plt Count MPV Absolute Neuts (auto) Neutrophils % Lymphocytes % Monocytes % Eosinophils % Basophils % Nucleated RBC % Sodium Potassium Chloride Carbon Dioxide Anion Gap BUN Creatinine Est GFR (CKD-EPI)AfAm Est GFR (CKD-EPI)NonAf POC Glucometer 91 80 Random Glucose Calcium Phosphorus Magnesium Total Bilirubin Direct Bilirubin AST ALT Alkaline Phosphatase Creatine Kinase Troponin I Total Protein Albumin Urine Osmolality Ur Random Sodium Urine Collection Time Urine Total Volume Ur Urea Nitrogen 24 Hr Opiates Screen Negative Methadone Screen Negative Barbiturate Screen Negative Phencyclidine Screen Negative Ur Amphetamines Screen Negative MDMA (Ecstasy) Screen Negative Benzodiazepines Screen Negative Cocaine Screen Negative U Marijuana (THC) Screen Negative Blood Type Antibody Screen 07/13/19 07/13/19 07/13/19 05:30 05:45 05:45 WBC 13.4 H RBC 3.84 Hgb 11.6 Hct 34.5 MCV 89.8 MCH 30.2 MCHC 33.6 RDW 13.5 Plt Count 211 D MPV 9.9 Absolute Neuts (auto) 10.8 H Neutrophils % 80.2 Lymphocytes % 11.0 Monocytes % 8.3 Eosinophils % 0.2 D Basophils % 0.3 Nucleated RBC % 0 Sodium 132 L Potassium 3.6 Chloride 97 L Carbon Dioxide 25 Anion Gap 10 BUN 26.8 H Creatinine 0.5 L Est GFR (CKD-EPI)AfAm 101.57 Est GFR (CKD-EPI)NonAf 87.64 POC Glucometer Random Glucose 62 L Calcium 7.8 L Phosphorus 2.3 L Magnesium 2.5 H Total Bilirubin 0.8 Direct Bilirubin AST 214 H ALT 375 H Alkaline Phosphatase 66 Creatine Kinase Troponin I Total Protein 5.0 L Albumin 2.8 L Urine Osmolality Ur Random Sodium Urine Collection Time 24 Urine Total Volume 1750 Ur Urea Nitrogen 24 Hr 545 H Opiates Screen Methadone Screen Barbiturate Screen Phencyclidine Screen Ur Amphetamines Screen MDMA (Ecstasy) Screen Benzodiazepines Screen Cocaine Screen U Marijuana (THC) Screen Blood Type Antibody Screen 07/13/19 07/13/19 07/13/19 05:45 05:45 06:18 WBC RBC Hgb Hct MCV MCH MCHC RDW Plt Count MPV Absolute Neuts (auto) Neutrophils % Lymphocytes % Monocytes % Eosinophils % Basophils % Nucleated RBC % Sodium Potassium Chloride Carbon Dioxide Anion Gap BUN Creatinine Est GFR (CKD-EPI)AfAm Est GFR (CKD-EPI)NonAf POC Glucometer 82 Random Glucose Calcium Phosphorus Magnesium Total Bilirubin Direct Bilirubin AST ALT Alkaline Phosphatase Creatine Kinase 100 Troponin I 0.36 H Total Protein Albumin Urine Osmolality Ur Random Sodium Urine Collection Time Urine Total Volume Ur Urea Nitrogen 24 Hr Opiates Screen Methadone Screen Barbiturate Screen Phencyclidine Screen Ur Amphetamines Screen MDMA (Ecstasy) Screen Benzodiazepines Screen Cocaine Screen U Marijuana (THC) Screen Blood Type B POSITIVE Antibody Screen Negative Active Medications Generic Name Dose Route Start Last Admin Trade Name Freq PRN Reason Stop Dose Admin Chlorhexidine Gluconate 1 applic 07/12/19 22:00 07/12/19 21:22 Hibiclens For Decolonization - TP 1 applic HS LISA Administration Heparin Sodium (Porcine) 5,000 unit 07/12/19 14:00 07/13/19 05:55 Heparin - SQ 5,000 unit TID LISA Administration Fentanyl 500 mcg/ Dextrose 100 mls @ 4 mls/hr 07/12/19 00:15 07/13/19 00:52 IVPB 50 mcg/hr TITR LISA 10 mls/hr Administration 20 MCG/HR Norepinephrine Bitartrate 8, 500 mls @ 5.61 mls/hr 07/12/19 05:30 07/13/19 06 :04 000 mcg/ Dextrose IV 0.08 mcg/kg/min ASDIR LISA 15 mls/hr Titration Protocol 0.03 MCG/KG/MIN Propofol 1,000,000 mcg in 100 mls @ 2.82 mls/hr 07/12/19 06:30 07/13/19 05:48 Diprivan - IVPB 15 mcg/kg/min TITR LISA 4.23 mls/hr Titration Protocol 10 MCG/KG/MIN Cefepime HCl 1 gm/ Dextrose 100 mls @ 100 mls/hr 07/12/19 18:00 07/13/19 09: 07 IVPB 100 mls/hr Q8H-IV LISA Administration Protocol Vancomycin HCl 1,000 mg in 250 mls @ 200 mls/hr 07/12/19 11:30 07/13/19 12:18 Vancomycin (Pre-Docked) IVPB 200 mls/hr Q24H LISA Administration Protocol Sodium Chloride 1,000 mls @ 83 mls/hr 07/12/19 13:30 07/12/19 14:40 Normal Saline - IV 83 mls/hr ASDIR LISA Administration Mupirocin 1 applic 07/12/19 10:00 07/13/19 09:07 Bactroban Ointment (For Decolonization) - NS 07/17/19 09:59 1 applic BID LISA Administration ASSESSMENT/PLAN: 88 y.o. F PMH HTN, recurring falls, depression, diastolic HFpEF, aortic stenosis , CCA stenosis, recently d/c'd 07/10/19 2/2 PNA, presenting with acute hypoxic hypercarbic respiratory failure 2/2 PNA. #Neuro -Sedated (propofol, fentanyl); sedation vacations daily -Hx of depression #CV -Pressor initiated (levo); maintain MAP >65-- wean as tolerated -Monitor BP & vitals -Echo done 07/07/19: EF 55-60%, mild MR, pulm HTN, & AR -EKG NSR no ST changes -Trend trop 2/2 tropinemia -Cardio Dr. Goddard following #Pulm -chest tube removal once extubated -CXR today: basilar lung markings, L atelectasis -Vent settings: AC mode TV 350 RR 20 FiO2 40% PEEP 5 -BNP 48097; holding Lasix -Aspiration precautions #Renal -HARJINDER, resolved -monitor Cr #GI -Transaminitis likely 2/2 sepsis -Trend lfts #Heme/Onc -Leukocytosis 2/2 PNA downtrending -Blood cx's neg # -Mills in place 1500mL overnight #ID -C/w abx cefepime & vanc -F/u legionella ag -Dr. Santos borjas #PPX -Heparin SQ #FEN -NS @83mL/ hr -Hyponatremic; f/u urine lytes & legionella ag; trend bmp -NPO; xonsider tube feeds if no extubation Visit type - Emergency Visit Emergency Visit: No - New Patient This patient is new to me today: No - Critical Care Critical Care patient: Yes Total Critical Care Time (in minutes): 36 Critical Care Statement: The care of this patient involved high complexity decision making to prevent further life threatening deterioration of the patient 's condition and/or to evaluate & treat vital organ system(s) failure or risk of failure. ATTENDING PHYSICIAN STATEMENT I saw and evaluated the patient. I reviewed the resident's note and discussed the case with the resident. I agree with the resident's findings and plan as documented. SUBJECTIVE: OBJECTIVE: ASSESSMENT AND PLAN:
[2019-07-13] MEDS ORDERED: POTASSIUM PHOSPHATE 30 MM in SODIUM CHLORIDE 250 ML IVPB ONE (16:25)
[2019-07-13] MEDS: CHLORHEXIDINE GLUCONATE 4% CLEANSER FOR DECOLONIZATION TP SCH (21:23)
[2019-07-13] MEDS ORDERED: fentaNYL CITRATE 250 MCG/5 ML VIAL ONE (21:25)
[2019-07-13] MEDS: PROPOFOL 1,000,000 MCG/100 ML VIAL IVPB SCH (21:26)
[2019-07-13] MEDS ORDERED: ACETAMINOPHEN 1000 MG/100 ML VIAL (NON FORMULARY) IVPB PRN (21:33)
[2019-07-13] MEDS ORDERED: ACETAMINOPHEN INJECTION 100 ML IVPB ONE (21:34)
[2019-07-14] MEDS: FENTANYL INJECTION 500 MCG in DEXTROSE 5%-WATER - 90 ML IVPB SCH ×2 (00:16→09:18)
[2019-07-14] MEDS: CEFEPIME 1 GM in DEXTROSE 5%-WATER 100 ML IVPB SCH ×3 (03:00→18:55)
[2019-07-14] MEDS ORDERED: CEFEPIME HCL 1 GM VIAL (RESTRICTED TO ID) ONE ×3 (03:17→16:09)
[2019-07-14] MEDS ORDERED: DEXTROSE 5%-WATER 100 ML IVPB ONE ×3 (03:17→16:09)
[2019-07-14] MEDS ORDERED: MIDAZOLAM IN 0.9 % SOD.CHLORID 1 MG/1 ML PLAST..BAG ONE (03:41)
[2019-07-14] MEDS: MIDAZOLAM 100 MG in SODIUM CHLORIDE 100 ML IVPB SCH (03:49)
[2019-07-14] MEDS: NOREPINEPHRINE BITARTRATE 8,000 MCG in DEXTROSE 5%-WATER - 492 ML IV SCH (05:35)
[2019-07-14] MEDS ORDERED: fentaNYL CITRATE 250 MCG/5 ML VIAL ONE (05:59)
[2019-07-14] MEDS: HEPARIN NA (PORCINE) 5,000 UNITS/ML 1ML VIAL SQ SCH ×3 (06:05→22:03)
[2019-07-14 06:49] LABS: BASO % 0.9 % (0-2.0); EOS % 0.5 % (0-4.5); HEMATOCRIT 32.6 % (32.4-45.2); HEMOGLOBIN 11.2 GM/dL (10.7-15.3); LYMPH % 16.2 % (8-40); MCH 30.5 pg (25.7-33.7); MCHC 34.3 g/dl (32.0-36.0); MEAN CELL VOLUME 88.8 fl (80-96); MEAN PLT VOLUME 9.5 fl (7.5-11.1); MONO % 9.5 % (3.8-10.2); NEUT % 72.9 % (42.8-82.8); PLATELET COUNT 238 K/MM3 (134-434); RBC 3.67 M/mm3 (3.60-5.2); RDW 13.3 % (11.6-15.6); WHITE BLOOD COUNT 12.1 K/mm3 (4.0-10.0)
[2019-07-14 07:22] LABS: BLOOD UREA NITROGEN 11.4 mg/dL (7-18); CALCIUM 7.3 mg/dL (8.5-10.1); CREATININE 0.3 mg/dL (0.55-1.3); PHOSPHOROUS 4.5 mg/dL (2.5-4.9); POTASSIUM 4.4 mmol/L (3.5-5.1)
[2019-07-14 07:23] LABS: ALBUMIN 2.5 g/dl (3.4-5.0); MAGNESIUM 2.2 mg/dL (1.8-2.4); TOT PROT 4.9 g/dl (6.4-8.2)
[2019-07-14] MEDS: PROPOFOL 1,000,000 MCG/100 ML VIAL IVPB SCH (09:12)
[2019-07-14] MEDS: ASPIRIN COATED 81 MG TABLET.EC PO SCH (09:17)
[2019-07-14] MEDS ORDERED: NOREPINEPHRINE BITARTRATE 4 MG/4 ML ML IV ONE (09:31)
[2019-07-14] MEDS: MUPIROCIN 2% TOPICAL OINTMENT FOR DECOLONIZATION NS SCH ×2 (10:40→22:01)
--- NOTE | 2019-07-14 10:57 | PN ---
Teaching Attending Note Name of Resident: Alexandra Ochoa ATTENDING PHYSICIAN STATEMENT I saw and evaluated the patient. I reviewed the resident's note and discussed the case with the resident. I agree with the resident's findings and plan as documented. SUBJECTIVE: Patient seen and examined in the ICU. Remains intubated, sedated. Remains on levophed drip for hemodynamic support. OBJECTIVE: Intake & Output 07/11/19 07/12/19 07/13/19 07/14/19 23:59 23:59 23:59 23:59 Intake Total 1804.6 1119 491 Output Total 675 3180 2 Balance 1129.6 -2061 489 Weight 110 lb 103 lb 9.876 oz 115 lb 95 lb 10.89 oz Last Vital Signs Temp Pulse Resp BP Pulse Ox 98.5 F 54 L 20 123/36 L 100 07/14/19 10:00 07/14/19 10:00 07/14/19 10:00 07/14/19 10:00 07/14/19 07:20 Active Medications Acetaminophen (Ofirmev Injection -) 1,000 mg IVPB Q6H PRN PRN Reason: FEVER Last Admin: 07/13/19 21:41 Dose: 1,000 mg Aspirin (Ecotrin -) 81 mg PO DAILY LISA Last Admin: 07/14/19 09:17 Dose: Not Given Chlorhexidine Gluconate (Hibiclens For Decolonization -) 1 applic TP HS LISA Last Admin: 07/13/19 21:23 Dose: 1 applic Heparin Sodium (Porcine) (Heparin -) 5,000 unit SQ TID LISA Last Admin: 07/14/19 06:05 Dose: 5,000 unit Fentanyl 500 mcg/ Dextrose 100 mls @ 4 mls/hr IVPB TITR [facility] Last Admin: 07/14/19 09:18 Dose: 100 mcg/hr, 20 mls/hr Norepinephrine Bitartrate 8, (000 mcg/ Dextrose) 500 mls @ 5.61 mls/hr IV ASDIR [facility]; Protocol Last Admin: 07/14/19 05:35 Dose: 0.08 mcg/kg/min, 15 mls/hr Propofol (Diprivan -) 1,000,000 mcg in 100 mls @ 2.82 mls/hr IVPB TITR [facility]; Protocol Last Admin: 07/14/19 09:12 Dose: 25 mcg/kg/min, 7.05 mls/hr Cefepime HCl 1 gm/ Dextrose 100 mls @ 100 mls/hr IVPB Q8H-IV LISA; Protocol Last Admin: 07/14/19 09:09 Dose: 100 mls/hr Vancomycin HCl (Vancomycin (Pre-Docked)) 1,000 mg in 250 mls @ 200 mls/hr IVPB Q24H [facility]ISA; Protocol Last Admin: 07/13/19 12:18 Dose: 200 mls/hr Sodium Chloride (Normal Saline -) 1,000 mls @ 83 mls/hr IV ASDIR [facility] Last Admin: 07/13/19 15:00 Dose: 83 mls/hr Midazolam HCl 100 mg/ Sodium (Chloride) 100 mls @ 1 mls/hr IVPB TITR LISA; Protocol Last Titration: 07/14/19 03:54 Dose: 3 mg/hr, 3 mls/hr Mupirocin (Bactroban Ointment (For Decolonization) -) 1 applic NS BID LISA Stop: 07/17/19 09:59 Last Admin: 07/13/19 21:23 Dose: 1 applic Gen: intubated, sedated Heart: RRR Lung: Vented, scattered bilateral rhonchi, decreased breath sounds at the bases Abd: soft, nontender Ext: RUE edema Laboratory Results - last 24 hr 07/12/19 07/13/19 07/13/19 06:00 18:30 21:57 WBC RBC Hgb Hct MCV MCH MCHC RDW Plt Count MPV Absolute Neuts (auto) Neutrophils % Lymphocytes % Monocytes % Eosinophils % Basophils % Nucleated RBC % Sodium Potassium Chloride Carbon Dioxide Anion Gap BUN Creatinine Est GFR (CKD-EPI)AfAm Est GFR (CKD-EPI)NonAf POC Glucometer 100 Random Glucose Calcium Phosphorus Magnesium Total Bilirubin AST ALT Alkaline Phosphatase Total Protein Albumin Ur Random Creatinine 34.0 Methyl Alcohol Level Negative 07/14/19 07/14/19 07/14/19 05:30 05:30 06:33 WBC 12.1 H RBC 3.67 Hgb 11.2 Hct 32.6 MCV 88.8 MCH 30.5 MCHC 34.3 RDW 13.3 Plt Count 238 MPV 9.5 Absolute Neuts (auto) 8.8 H Neutrophils % 72.9 Lymphocytes % 16.2 D Monocytes % 9.5 Eosinophils % 0.5 D Basophils % 0.9 Nucleated RBC % 0 Sodium 139 Potassium 4.4 Chloride 107 Carbon Dioxide 24 Anion Gap 8 BUN 11.4 Creatinine 0.3 L Est GFR (CKD-EPI)AfAm 120.16 Est GFR (CKD-EPI)NonAf 103.67 POC Glucometer 96 Random Glucose 100 Calcium 7.3 L Phosphorus 4.5 Magnesium 2.2 Total Bilirubin 1.0 AST 132 H ALT 309 H Alkaline Phosphatase 63 Total Protein 4.9 L Albumin 2.5 L Ur Random Creatinine Methyl Alcohol Level Acute Hypoxic and Hypercapneic Respiratory Failure Pneumonia Septic Shock Acute Kidney Injury Lactic Acidosis +Troponins likely Demand Ischemia Elevated LFTs likely Ischemic Injury Hyponatremia Right Pneumothorax s/p chest tube placement LV Diastolic Dysfunction Chronic Subdural Hematoma - Sedation vacation to assess how mental status - continue antibiotics - IVF - monitor urine output, creatinine - taper levophed gtt to maintain MAP >65 - spontaneous breathing trials as tolerated - Enteral feeds - DVT/GI prophylaxis - Requires continued ICU monitoring Dr Pemberton Critical care time spent in reviewing chart, evaluating patient and formulating plan 36 min
[2019-07-14] MEDS: VANCOMYCIN 1 GRAM (PRE-DOCKED) 1,000 MG/250 ML BAG IVPB SCH (11:39)
--- NOTE | 2019-07-14 12:32 | PN ---
Progress Note, Physician History of Present Illness: Sedated on vent, weaned off levophed gtt, right chest tube in place. - Current Medication List Current Medications: Active Medications Acetaminophen (Ofirmev Injection -) 1,000 mg IVPB Q6H PRN PRN Reason: FEVER Last Admin: 07/13/19 21:41 Dose: 1,000 mg Aspirin (Ecotrin -) 81 mg PO DAILY LISA Last Admin: 07/14/19 09:17 Dose: Not Given Chlorhexidine Gluconate (Hibiclens For Decolonization -) 1 applic TP HS LISA Last Admin: 07/13/19 21:23 Dose: 1 applic Heparin Sodium (Porcine) (Heparin -) 5,000 unit SQ TID LISA Last Admin: 07/14/19 06:05 Dose: 5,000 unit Fentanyl 500 mcg/ Dextrose 100 mls @ 4 mls/hr IVPB TITR [facility]ISA Last Admin: 07/14/19 09:18 Dose: 100 mcg/hr, 20 mls/hr Norepinephrine Bitartrate 8, (000 mcg/ Dextrose) 500 mls @ 5.61 mls/hr IV ASDIR [facility]ISA; Protocol Last Admin: 07/14/19 05:35 Dose: 0.08 mcg/kg/min, 15 mls/hr Propofol (Diprivan -) 1,000,000 mcg in 100 mls @ 2.82 mls/hr IVPB TITR [facility]; Protocol Last Admin: 07/14/19 09:12 Dose: 25 mcg/kg/min, 7.05 mls/hr Cefepime HCl 1 gm/ Dextrose 100 mls @ 100 mls/hr IVPB Q8H-IV [facility]ISA; Protocol Last Admin: 07/14/19 09:09 Dose: 100 mls/hr Vancomycin HCl (Vancomycin (Pre-Docked)) 1,000 mg in 250 mls @ 200 mls/hr IVPB Q24H [facility]; Protocol Last Admin: 07/14/19 11:39 Dose: 200 mls/hr Sodium Chloride (Normal Saline -) 1,000 mls @ 83 mls/hr IV ASDIR LISA Last Admin: 07/13/19 15:00 Dose: 83 mls/hr Midazolam HCl 100 mg/ Sodium (Chloride) 100 mls @ 1 mls/hr IVPB TITR [facility]ISA; Protocol Last Titration: 07/14/19 03:54 Dose: 3 mg/hr, 3 mls/hr Mupirocin (Bactroban Ointment (For Decolonization) -) 1 applic NS BID LISA Stop: 07/17/19 09:59 Last Admin: 07/14/19 10:40 Dose: 1 applic - Objective Vital Signs: Vital Signs Temperature 98.5 F 07/14/19 10:00 Pulse Rate 67 07/14/19 12:00 Respiratory Rate 20 07/14/19 12:23 Blood Pressure 148/49 L 07/14/19 12:00 O2 Sat by Pulse Oximetry (%) 99 07/14/19 10:00 Constitutional: Yes: No Distress, Calm Neck: Yes: Supple Cardiovascular: Yes: Regular Rate and Rhythm, Murmur (2/6 SM) Respiratory: Yes: Intubated, Mechanically Ventilated, Rhonchi Gastrointestinal: Yes: Normal Bowel Sounds, Soft Peripheral Pulses WNL: No Labs: CBC, BMP 07/14/19 05:30 07/14/19 05:30 INR, PTT INR 1.34 (0.83-1.09) H 07/12/19 06:00 - ....Imaging Chest X-ray: Image Reviewed EKG: Report Reviewed (Tele: NSR) Problem List - Problems (1) Respiratory failure Code(s): J96.90 - RESPIRATORY FAILURE, UNSP, UNSP W HYPOXIA OR HYPERCAPNIA Qualifiers: Chronicity: acute Respiratory failure complication: hypoxia and hypercapnia Qualified Code(s): J96.01 - Acute respiratory failure with hypoxia ; J96.02 - Acute respiratory failure with hypercapnia (2) Diastolic dysfunction Code(s): I51.89 - OTHER ILL-DEFINED HEART DISEASES (3) Demand ischemia Code(s): I24.8 - OTHER FORMS OF ACUTE ISCHEMIC HEART DISEASE (4) Ischemic hepatitis Code(s): K75.9 - INFLAMMATORY LIVER DISEASE, UNSPECIFIED (5) Septic shock Code(s): A41.9 - SEPSIS, UNSPECIFIED ORGANISM; R65.21 - SEVERE SEPSIS WITH SEPTIC SHOCK (6) Iatrogenic pneumothorax Code(s): J95.811 - POSTPROCEDURAL PNEUMOTHORAX Assessment/Plan 07/12/2019 echo: Normal biventrucular size and fxn, mod MR, AR 1. Acute Hypoxic and Hypercapneic Respiratory Failure 2. Pneumonia 3. Post Septic Shock 4. Coronary artery disease with demand ischemic injury angina pectoris/elevated troponin I level related to sepsis syndrome 5. Diastolic left ventricular dysfunction with clinical class 0-I [place] [employer] classification left ventricular failure/elevated B-type natriuretic peptide- most likely related to sepsis syndrome 6. Hypertensive cardiovascular disease, hypotension related to the above-noted sepsis syndrome 7. History of non-sustained ventricular tachycardia 8. Aortic valve regurgitation 9. Tricuspid valve regurgitation with moderate degree of pulmonary hypertension 10. History of carotid stenosis, moderate in severity 11. Iatrogenic pneumothorax post right chest tube insertion/complication of subclavian line insertion 12. Abnormal liver function testing trending down, likely shock liver 13. Hyponatremia resolved 14. Chronic Subdural Hematoma PLAN: 1. Antibiotics per C&S, tapered off levophed gtt as MAP >65 2. Recommend initiation of beta-tino, JOHANNA inhibitor or angiotensin receptor tino therapy, hemodynamics permitting (once off of pressor therapy) 3. Recommend initiation of Aspirin therapy, no clear indication for initiation of anticoagulation therapy the above noted troponin I elevation is related to demand ischemic injury not a primary myocardial event. 4. Ventilator management as per the critical care team, enteral feeds if unable to extubate, daily sedation vacations to assess mental status, spontaneous breathing trials as tolerated 5. Chest tube management as per the critical care team 6. DVT/GI prophylaxis
--- NOTE | 2019-07-14 13:33 | PN ---
Progress Note (short form) - Note Progress Note: intubated and sedated intubated in ED 07/12 s/p chest tube placement for PTX off levophed Vital Signs Period Temp Pulse Resp BP Sys/Da Silva Pulse Ox Last 24 Hr 96.7 F-101.2 F 54-81 16-21 94-199/32-49 99-100 cor-rrr lungs decreased bs at bases abd soft,nt ext no edema +chest tube CBC, BMP 07/14/19 05:30 07/14/19 05:30 Microbiology 07/14/19 05:50 Urine For Antigen Detection Legionella Antigen - Final 07/14/19 05:50 Urine For Antigen Detection Streptococcus pneumoniae Antigen (M - Final 07/12/19 00:30 Blood - Peripheral Venous Blood Culture - Preliminary NO GROWTH OBTAINED AFTER 48 HOURS, INCUBATION TO CONTINUE FOR 3 DAYS. 07/12/19 00:11 Blood - Peripheral Venous Blood Culture - Preliminary NO GROWTH OBTAINED AFTER 48 HOURS, INCUBATION TO CONTINUE FOR 3 DAYS. 07/12/19 00:11 Urine - Urine - Catheterized Urine Culture - Final NO GROWTH OBTAINED Current Medications Acetaminophen (Ofirmev Injection -) 1,000 mg IVPB Q6H PRN PRN Reason: FEVER Last Admin: 07/13/19 21:41 Dose: 1,000 mg Aspirin (Ecotrin -) 81 mg PO DAILY [facility] Last Admin: 07/14/19 09:17 Dose: Not Given Chlorhexidine Gluconate (Hibiclens For Decolonization -) 1 applic TP HS [facility] Last Admin: 07/13/19 21:23 Dose: 1 applic Heparin Sodium (Porcine) (Heparin -) 5,000 unit SQ TID [facility] Last Admin: 07/14/19 06:05 Dose: 5,000 unit Fentanyl 500 mcg/ Dextrose 100 mls @ 4 mls/hr IVPB TITR [facility] Last Admin: 07/14/19 09:18 Dose: 100 mcg/hr, 20 mls/hr Norepinephrine Bitartrate 8, (000 mcg/ Dextrose) 500 mls @ 5.61 mls/hr IV ASDIR [facility]; Protocol Last Admin: 07/14/19 05:35 Dose: 0.08 mcg/kg/min, 15 mls/hr Propofol (Diprivan -) 1,000,000 mcg in 100 mls @ 2.82 mls/hr IVPB TITR [facility]; Protocol Last Admin: 07/14/19 09:12 Dose: 25 mcg/kg/min, 7.05 mls/hr Cefepime HCl 1 gm/ Dextrose 100 mls @ 100 mls/hr IVPB Q8H-IV [facility]; Protocol Last Admin: 07/14/19 09:09 Dose: 100 mls/hr Vancomycin HCl (Vancomycin (Pre-Docked)) 1,000 mg in 250 mls @ 200 mls/hr IVPB Q24H [facility]; Protocol Last Admin: 07/14/19 11:39 Dose: 200 mls/hr Sodium Chloride (Normal Saline -) 1,000 mls @ 83 mls/hr IV ASDIR [facility] Last Admin: 07/13/19 15:00 Dose: 83 mls/hr Midazolam HCl 100 mg/ Sodium (Chloride) 100 mls @ 1 mls/hr IVPB TITR [facility]; Protocol Last Titration: 07/14/19 03:54 Dose: 3 mg/hr, 3 mls/hr Mupirocin (Bactroban Ointment (For Decolonization) -) 1 applic NS BID [facility] Stop: 07/17/19 09:59 Last Admin: 07/14/19 10:40 Dose: 1 appli a/p respiratory failure pneumonia abnl lfts +troponins PTX continue vanco/cefepime sputum culture ordered urinary antigens negative will order vanco trough
--- NOTE | 2019-07-14 14:18 | PN ---
Physical Exam: SUBJECTIVE: Patient seen and examined in the morning. No acute events overnight. No events on cardiac monitoring. Patient sedated during examination, when taken off sedation, patient did not respond to questions about pain or discomfort. OBJECTIVE: Vital Signs Period Temp Pulse Resp BP Sys/Da Silva Pulse Ox Last 24 Hr 96.7 F-101.2 F 54-81 16-21 94-199/32-49 99-100 GENERAL: Intubated, sedated, not in acute distress. EYES: PERRLA, EOMI. LUNGS: Breath sounds equal, clear to auscultation bilaterally, no wheezes. Chest tunbe in place. On water seal. HEART: Regular rate and rhythm, S1, S2 without murmur, rub or gallop. ABDOMEN: Soft, nontender, nondistended, normoactive bowel sounds. EXTREMITIES: 2+ pulses, warm, well-perfused, no edema. NEUROLOGICAL: Sedated Laboratory Results - last 24 hr 07/12/19 07/13/19 07/13/19 06:00 18:30 21:57 WBC RBC Hgb Hct MCV MCH MCHC RDW Plt Count MPV Absolute Neuts (auto) Neutrophils % Lymphocytes % Monocytes % Eosinophils % Basophils % Nucleated RBC % Sodium Potassium Chloride Carbon Dioxide Anion Gap BUN Creatinine Est GFR (CKD-EPI)AfAm Est GFR (CKD-EPI)NonAf POC Glucometer 100 Random Glucose Calcium Phosphorus Magnesium Total Bilirubin AST ALT Alkaline Phosphatase Total Protein Albumin Ur Random Creatinine 34.0 Methyl Alcohol Level Negative 07/14/19 07/14/19 07/14/19 05:30 05:30 06:33 WBC 12.1 H RBC 3.67 Hgb 11.2 Hct 32.6 MCV 88.8 MCH 30.5 MCHC 34.3 RDW 13.3 Plt Count 238 MPV 9.5 Absolute Neuts (auto) 8.8 H Neutrophils % 72.9 Lymphocytes % 16.2 D Monocytes % 9.5 Eosinophils % 0.5 D Basophils % 0.9 Nucleated RBC % 0 Sodium 139 Potassium 4.4 Chloride 107 Carbon Dioxide 24 Anion Gap 8 BUN 11.4 Creatinine 0.3 L Est GFR (CKD-EPI)AfAm 120.16 Est GFR (CKD-EPI)NonAf 103.67 POC Glucometer 96 Random Glucose 100 Calcium 7.3 L Phosphorus 4.5 Magnesium 2.2 Total Bilirubin 1.0 AST 132 H ALT 309 H Alkaline Phosphatase 63 Total Protein 4.9 L Albumin 2.5 L Ur Random Creatinine Methyl Alcohol Level 07/14/19 11:53 WBC RBC Hgb Hct MCV MCH MCHC RDW Plt Count MPV Absolute Neuts (auto) Neutrophils % Lymphocytes % Monocytes % Eosinophils % Basophils % Nucleated RBC % Sodium Potassium Chloride Carbon Dioxide Anion Gap BUN Creatinine Est GFR (CKD-EPI)AfAm Est GFR (CKD-EPI)NonAf POC Glucometer 89 Random Glucose Calcium Phosphorus Magnesium Total Bilirubin AST ALT Alkaline Phosphatase Total Protein Albumin Ur Random Creatinine Methyl Alcohol Level Active Medications Generic Name Dose Route Start Last Admin Trade Name Freq PRN Reason Stop Dose Admin Acetaminophen 1,000 mg 07/13/19 21:33 07/13/19 21:41 Ofirmev Injection - IVPB 1,000 mg Q6H PRN Administration FEVER Aspirin 81 mg 07/14/19 10:00 07/14/19 09:17 Ecotrin - PO Not Given DAILY LISA Chlorhexidine Gluconate 1 applic 07/12/19 22:00 07/13/19 21:23 Hibiclens For Decolonization - TP 1 applic HS LISA Administration Heparin Sodium (Porcine) 5,000 unit 07/12/19 14:00 07/14/19 06:05 Heparin - SQ 5,000 unit TID LISA Administration Fentanyl 500 mcg/ Dextrose 100 mls @ 4 mls/hr 07/12/19 00:15 07/14/19 09:18 IVPB 100 mcg/hr TITR LISA 20 mls/hr Administration 20 MCG/HR Norepinephrine Bitartrate 8, 500 mls @ 5.61 mls/hr 07/12/19 05:30 07/14/19 05 :35 000 mcg/ Dextrose IV 0.08 mcg/kg/min ASDIR LISA 15 mls/hr Administration Protocol 0.03 MCG/KG/MIN Propofol 1,000,000 mcg in 100 mls @ 2.82 mls/hr 07/12/19 06:30 07/14/19 09:12 Diprivan - IVPB 25 mcg/kg/min TITR LISA 7.05 mls/hr Administration Protocol 10 MCG/KG/MIN Cefepime HCl 1 gm/ Dextrose 100 mls @ 100 mls/hr 07/12/19 18:00 07/14/19 09: 09 IVPB 100 mls/hr Q8H-IV LISA Administration Protocol Vancomycin HCl 1,000 mg in 250 mls @ 200 mls/hr 07/12/19 11:30 07/14/19 11:39 Vancomycin (Pre-Docked) IVPB 200 mls/hr Q24H LISA Administration Protocol Sodium Chloride 1,000 mls @ 83 mls/hr 07/12/19 13:30 07/13/19 15:00 Normal Saline - IV 83 mls/hr ASDIR LISA Administration Midazolam HCl 100 mg/ Sodium 100 mls @ 1 mls/hr 07/14/19 03:45 07/14/19 03:54 Chloride IVPB 3 mg/hr TITR LISA 3 mls/hr Titration Protocol 1 MG/HR Mupirocin 1 applic 07/12/19 10:00 07/14/19 10:40 Bactroban Ointment (For Decolonization) - NS 07/17/19 09:59 1 applic BID LISA Administration ASSESSMENT/PLAN: 88 F PMH HTN, recurring falls, depression, diastolic HFpEF, Aortic stenosis, CCA stenosis, recently discharged on 07/10/19 2/2 PNA, presents with acute hypoxic hypercarbic respiratory failure 2/2 PNA. Neuro Sedated on propofol, fentanyl, midazolam. Sedation vacation for patient was done , however patient was hypertensive. Was alert but not responsive to commands. Depression -continue monitoring Cardiovascular -Patient was on levophed. Now currently being held. Pressures are stable -Echo on 07/07 showed EF of 55-60%, mild MR, pulmonary HTN, and AR. -EKG shows NSR, no ST changes. -Troponins peaked -ASA 81 -Cardiology consulted, appreciate recs Pulm -Chest tube removal once extubated -On vent -Holding Lasix Renal -Continue monitoring Creatinine -HARJINDER resolved GI -Transaminitis likely 2/2 to sepsis -hunt d/c ID -Continue with cefepime and vancomycin -Legionella ag negative -ID consulted, appreciate recs Prophylaxis -Heparin SQ TID F: NS @ 83 ml/hr E: Monitor CMP N: Tube feeds started today Dispo: Continue ICU monitoring. Visit type - Emergency Visit Emergency Visit: Yes ED Registration Date: 07/11/19 Care time: The patient presented to the Emergency Department on the above date and was hospitalized for further evaluation of their emergent condition. - New Patient This patient is new to me today: No - Critical Care Critical Care patient: Yes Total Critical Care Time (in minutes): 45 Critical Care Statement: The care of this patient involved high complexity decision making to prevent further life threatening deterioration of the patient 's condition and/or to evaluate & treat vital organ system(s) failure or risk of failure. ATTENDING PHYSICIAN STATEMENT I saw and evaluated the patient. I reviewed the resident's note and discussed the case with the resident. I agree with the resident's findings and plan as documented. SUBJECTIVE: OBJECTIVE: ASSESSMENT AND PLAN:
--- NOTE | 2019-07-14 14:52 | PN ---
Physical Exam: SUBJECTIVE: Patient seen and examined in bed, intubated and on ventilator CAIO 3. OBJECTIVE: Vital Signs Period Temp Pulse Resp BP Sys/Da Silva Pulse Ox Last 24 Hr 96.7 F-101.2 F 54-81 16-21 94-199/32-49 99-100 VENT SETT[place], 20, 5, 100% GENERAL: Intubated and sedated HEAD: NC. 3 cm healed, vertical laceration on RIGHT zoroastrianism EYES: 2 mm pupils. Sluggishly reactive to light and accommodation. ENT: Ears normal, nares patent, oropharynx clear without exudates. Moist mucous membranes. ET in place. LUNGS: CTAB. No wheezes, and no crackles. No accessory muscle use. HEART: RRR s1 s2. 2/6 systolic murmur radiating to back. ABDOMEN: Soft, BS present in all 4 quadrants, non-distended, no JVD, MUSCULOSKELETAL: No bony deformities or tenderness. Chest tube in place on RIGHT UPPER EXTREMITIES: 2+ pulses, warm, well-perfused. No cyanosis. No clubbing. No peripheral edema. LOWER EXTREMITIES: 2+ pulses, warm, well-perfused. No calf tenderness. No peripheral edema. SKIN: 2x5 RUE ecchymosis. Echymosis on flexor surface of RUE. Warm, dry, normal turgor, normal capillary refill. Laboratory Results - last 24 hr 07/12/19 07/12/19 07/13/19 06:00 06:00 18:30 WBC RBC Hgb Hct MCV MCH MCHC RDW Plt Count MPV Absolute Neuts (auto) Neutrophils % Lymphocytes % Monocytes % Eosinophils % Basophils % Nucleated RBC % Sodium Potassium Chloride Carbon Dioxide Anion Gap BUN Creatinine Est GFR (CKD-EPI)AfAm Est GFR (CKD-EPI)NonAf POC Glucometer Random Glucose Calcium Phosphorus Magnesium Total Bilirubin AST ALT Alkaline Phosphatase Total Protein Albumin Ur Random Creatinine 34.0 Ethylene Glycol <5 Methyl Alcohol Level Negative 07/13/19 07/14/19 07/14/19 21:57 05:30 05:30 WBC 12.1 H RBC 3.67 Hgb 11.2 Hct 32.6 MCV 88.8 MCH 30.5 MCHC 34.3 RDW 13.3 Plt Count 238 MPV 9.5 Absolute Neuts (auto) 8.8 H Neutrophils % 72.9 Lymphocytes % 16.2 D Monocytes % 9.5 Eosinophils % 0.5 D Basophils % 0.9 Nucleated RBC % 0 Sodium 139 Potassium 4.4 Chloride 107 Carbon Dioxide 24 Anion Gap 8 BUN 11.4 Creatinine 0.3 L Est GFR (CKD-EPI)AfAm 120.16 Est GFR (CKD-EPI)NonAf 103.67 POC Glucometer 100 Random Glucose 100 Calcium 7.3 L Phosphorus 4.5 Magnesium 2.2 Total Bilirubin 1.0 AST 132 H ALT 309 H Alkaline Phosphatase 63 Total Protein 4.9 L Albumin 2.5 L Ur Random Creatinine Ethylene Glycol Methyl Alcohol Level 07/14/19 07/14/19 06:33 11:53 WBC RBC Hgb Hct MCV MCH MCHC RDW Plt Count MPV Absolute Neuts (auto) Neutrophils % Lymphocytes % Monocytes % Eosinophils % Basophils % Nucleated RBC % Sodium Potassium Chloride Carbon Dioxide Anion Gap BUN Creatinine Est GFR (CKD-EPI)AfAm Est GFR (CKD-EPI)NonAf POC Glucometer 96 89 Random Glucose Calcium Phosphorus Magnesium Total Bilirubin AST ALT Alkaline Phosphatase Total Protein Albumin Ur Random Creatinine Ethylene Glycol Methyl Alcohol Level Active Medications Acetaminophen (Ofirmev Injection -) 1,000 mg IVPB Q6H PRN PRN Reason: FEVER Last Admin: 07/13/19 21:41 Dose: 1,000 mg Aspirin (Ecotrin -) 81 mg PO DAILY LISA Last Admin: 07/14/19 09:17 Dose: Not Given Chlorhexidine Gluconate (Hibiclens For Decolonization -) 1 applic TP HS LISA Last Admin: 07/13/19 21:23 Dose: 1 applic Heparin Sodium (Porcine) (Heparin -) 5,000 unit SQ TID LISA Last Admin: 07/14/19 06:05 Dose: 5,000 unit Fentanyl 500 mcg/ Dextrose 100 mls @ 4 mls/hr IVPB [facility]R [facility] Last Titration: 07/14/19 11:00 Dose: 50 mcg/hr, 10 mls/hr Norepinephrine Bitartrate 8, (000 mcg/ Dextrose) 500 mls @ 5.61 mls/hr IV ASDIR [facility]; Protocol Last Titration: 07/14/19 10:30 Dose: 0 mcg/kg/min, 0 mls/hr Propofol (Diprivan -) 1,000,000 mcg in 100 mls @ 2.82 mls/hr IVPB T[facility]R [facility]; Protocol Last Titration: 07/14/19 11:00 Dose: 12.5 mcg/kg/min, 3.525 mls/hr Cefepime HCl 1 gm/ Dextrose 100 mls @ 100 mls/hr IVPB Q8H-IV LISA; Protocol Last Admin: 07/14/19 09:09 Dose: 100 mls/hr Vancomycin HCl (Vancomycin (Pre-Docked)) 1,000 mg in 250 mls @ 200 mls/hr IVPB Q24H LISA; Protocol Last Admin: 07/14/19 11:39 Dose: 200 mls/hr Sodium Chloride (Normal Saline -) 1,000 mls @ 83 mls/hr IV ASDIR LISA Last Admin: 07/13/19 15:00 Dose: 83 mls/hr Midazolam HCl 100 mg/ Sodium (Chloride) 100 mls @ 1 mls/hr IVPB TITR LISA; Protocol Last Titration: 07/14/19 10:05 Dose: 0 mg/hr, 0 mls/hr Mupirocin (Bactroban Ointment (For Decolonization) -) 1 applic NS BID LISA Stop: 07/17/19 09:59 Last Admin: 07/14/19 10:40 Dose: 1 applic ASSESSMENT/PLAN: 88 female PMH HTN, HFpEF, depression, chronic RIGHT subdural hematoma, ETOH abuse, RIGHT carotid artery stenosis, and recent admission for PNA and UTI. Pt brought to hospital after lack of responsiveness and desaturating to the 80s. She was admitted for care of acute hypoxic, hypercapnic respiratory failure. AC Mode of vent, 40% FiO2. No air leak noted on pleural catheter; drain 10 cc overnight. # Acute hypoxic, hypercapnic respiratory failure: Physiologic changes of sepsis vs PNA vs exacerbation of HF - Sedation vacation to assess how mental status - Taper levophed gtt to maintain MAP >65 - Acute diastolic heart failure: hyponatremia 132 to 139, elevated BNP , BL pleural effusions, BL LE edema - Anticipate possible extubation tomorrow - Flu swab NEGATIVE - Continue cefepime 1 g IV q8h and vancomycin 1 g IV qd - F/u sputum culture - F/u urinary antigens - 3 mcq NE for hemodynamic support, maintain MAP > 65 - Repeat echo: mitral valve regurg, aortic regurg. Echo done 07/07/19: EF 55-60% , mild MR, pulm HTN, & AR - Urine culture NEGATIVE - Blood culture NEGATIVE - Flu swab - F/u urine tox # HARJINDER - Improving BUN/Cr 26.8/0.5 to 11.4/0.3 - Cr dropped from 1.1 to 0.5 - Avoid aggressive hydration # Hyponatremia: HF vs poor po intake - F/u urine electrolytes: high urineurea nitrogen 545 - I/o - Daily weights # Transaminitis: hypotension vs toxicity vs sepsis vs liver congestion 2/2 heart failure - Repeat liver function improved 132/309 - US of liver: fatty liver VS hepatocellular disease. 8x9 possible cyst in pancreatic head. Recommend MRI. - Acetominophen level 5.2, WNL # Sepsis with septic shock: Likely due to PNA - Taper off Levo - Continue antibiotics for PNA # RIGHT pneumothorax - Resolved on repeat CXR - F/u CXR in AM # Troponemia - 0.88 -> 0.93 -> 0.36 today - Possibly 2/2 sepsis (demand ischemia, hypoxia) - EKG with new inverted TWI anterioseptal leads and L axis deviation which are new compared to EKG form last admission (possible NSTEMI) - F/u repeat troponin and if elevated, consider heparin drip - Consult cardiology # Leukocytosis - PNA vs left shift - Resolving # Hypophosphatemia - Repleted with K phos 30 mg IV # F/E/N - NS - Cont. to monitor - Enteral feeds if unable to extubate # DVT prophylaxis - Heparin SQ # Disposition - Full code - ICU monitoring Enrrique Lin MD Visit type - Emergency Visit Emergency Visit: No - New Patient This patient is new to me today: No - Critical Care Critical Care patient: Yes Total Critical Care Time (in minutes): 40 Critical Care Statement: The care of this patient involved high complexity decision making to prevent further life threatening deterioration of the patient 's condition and/or to evaluate & treat vital organ system(s) failure or risk of failure. ATTENDING PHYSICIAN STATEMENT I saw and evaluated the patient. I reviewed the resident's note and discussed the case with the resident. I agree with the resident's findings and plan as documented. SUBJECTIVE: OBJECTIVE: ASSESSMENT AND PLAN:
[2019-07-14] MEDS: SODIUM CHLORIDE 1,000 ML IV SCH ×2 (15:54→22:07)
--- NOTE | 2019-07-14 18:18 | PN ---
Teaching Attending Note Name of Resident: Enrrique Lin ATTENDING PHYSICIAN STATEMENT I saw and evaluated the patient. I reviewed the resident's note and discussed the case with the resident. I agree with the resident's findings and plan as documented. SUBJECTIVE: Patient in ICu continues to be intubated. sedated, no changes. Vital Signs Temperature 99.0 F 07/14/19 14:00 Pulse Rate 71 07/14/19 18:00 Respiratory Rate 20 07/14/19 18:00 Blood Pressure 135/36 L 07/14/19 18:00 O2 Sat by Pulse Oximetry (%) 99 07/14/19 10:00 GENERAL: The patient is Intubated, sedated, HEAD: Normal with no signs of trauma. EYES:round small pupils, reactive to light ENT: Ears normal, oropharynx clear without exudates, moist mucous membranes. NECK: Trachea midline, full range of motion, supple. LUNGS: Breath sounds equal, clear to auscultation bilaterally, no wheezes, no crackles, no accessory muscle use. HEART: RRR, 2/6 SM at apex which is heard louder in L axilla. 3/6 SM heard in back. . No JVD ABDOMEN: Soft, hypoactive BS. no grimacing with palpation EXTREMITIES: 2+ pulses, warm, well-perfused,2+ pitting edemas NEUROLOGICAL: Cranial nerves II through XII grossly intact. Normal speech, gait not observed. PSYCH: Normal mood, normal affect. SKIN: Warm, dry, normal turgor, no rashes or lesions noted CBCD WBC 12.1 K/mm3 (4.0-10.0) H 07/14/19 05:30 RBC 3.67 M/mm3 (3.60-5.2) 07/14/19 05:30 Hgb 11.2 GM/dL (10.7-15.3) 07/14/19 05:30 Hct 32.6 % (32.4-45.2) 07/14/19 05:30 MCV 88.8 fl (80-96) 07/14/19 05:30 MCHC 34.3 g/dl (32.0-36.0) 07/14/19 05:30 RDW 13.3 % (11.6-15.6) 07/14/19 05:30 Plt Count 238 K/MM3 (134-434) 07/14/19 05:30 MPV 9.5 fl (7.5-11.1) 07/14/19 05:30 CMP Sodium 139 mmol/L (136-145) 07/14/19 05:30 Potassium 4.4 mmol/L (3.5-5.1) 07/14/19 05:30 Chloride 107 mmol/L (98-107) 07/14/19 05:30 Carbon Dioxide 24 mmol/L (21-32) 07/14/19 05:30 Anion Gap 8 MMOL/L (8-16) 07/14/19 05:30 BUN 11.4 mg/dL (7-18) 07/14/19 05:30 Creatinine 0.3 mg/dL (0.55-1.3) L 07/14/19 05:30 Random Glucose 100 mg/dL (74-106) 07/14/19 05:30 Calcium 7.3 mg/dL (8.5-10.1) L 07/14/19 05:30 Total Bilirubin 1.0 mg/dL (0.2-1) 07/14/19 05:30 AST 132 U/L (15-37) H 07/14/19 05:30 ALT 309 U/L (13-61) H 07/14/19 05:30 Alkaline Phosphatase 63 U/L (45-117) 07/14/19 05:30 Total Protein 4.9 g/dl (6.4-8.2) L 07/14/19 05:30 Albumin 2.5 g/dl (3.4-5.0) L 07/14/19 05:30 CARDIAC ENZYMES Creatine Kinase 100 U/L (26-192) 07/13/19 05:45 Troponin I 0.36 ng/ml (0.00-0.05) H 07/13/19 05:45 Current Medications Generic Name Dose Route Start Last Admin Trade Name Freq PRN Reason Stop Dose Admin Acetaminophen 1,000 mg 07/13/19 21:33 07/13/19 21:41 Ofirmev Injection - IVPB 1,000 mg Q6H PRN Administration FEVER Aspirin 81 mg 07/14/19 10:00 07/14/19 09:17 Ecotrin - PO Not Given DAILY LISA Chlorhexidine Gluconate 1 applic 07/12/19 22:00 07/13/19 21:23 Hibiclens For Decolonization - TP 1 applic HS LISA Administration Heparin Sodium (Porcine) 5,000 unit 07/12/19 14:00 07/14/19 06:05 Heparin - SQ 5,000 unit TID LISA Administration Fentanyl 500 mcg/ Dextrose 100 mls @ 4 mls/hr 07/12/19 00:15 07/14/19 11:00 IVPB 50 mcg/hr TITR LISA 10 mls/hr Titration 20 MCG/HR Norepinephrine Bitartrate 8, 500 mls @ 5.61 mls/hr 07/12/19 05:30 07/14/19 10 :30 000 mcg/ Dextrose IV 0 mcg/kg/min ASDIR LISA 0 mls/hr Titration Protocol 0.03 MCG/KG/MIN Propofol 1,000,000 mcg in 100 mls @ 2.82 mls/hr 07/12/19 06:30 07/14/19 11:00 Diprivan - IVPB 12.5 mcg/kg/min TITR LISA 3.525 mls/hr Titration Protocol 10 MCG/KG/MIN Cefepime HCl 1 gm/ Dextrose 100 mls @ 100 mls/hr 07/12/19 18:00 07/14/19 09: 09 IVPB 100 mls/hr Q8H-IV LISA Administration Protocol Vancomycin HCl 1,000 mg in 250 mls @ 200 mls/hr 07/12/19 11:30 07/14/19 11:39 Vancomycin (Pre-Docked) IVPB 200 mls/hr Q24H LISA Administration Protocol Sodium Chloride 1,000 mls @ 83 mls/hr 07/12/19 13:30 07/13/19 15:00 Normal Saline - IV 83 mls/hr ASDIR LISA Administration Midazolam HCl 100 mg/ Sodium 100 mls @ 1 mls/hr 07/14/19 03:45 07/14/19 10:05 Chloride IVPB 0 mg/hr TITR LISA 0 mls/hr Titration Protocol 1 MG/HR Mupirocin 1 applic 07/12/19 10:00 07/14/19 10:40 Bactroban Ointment (For Decolonization) - NS 07/17/19 09:59 1 applic BID LISA Administration Home Medications Medication Instructions Recorded LORazepam [Lorazepam] 0.5 mg PO TID 07/07/19 Sertraline HCl 50 mg PO DAILY 07/07/19 traZODone HCL [Trazodone HCl] 50 mg PO DAILY 07/07/19 Acetaminophen [Tylenol 1,000 mg PO Q6H PRN #0 tablet 07/08/19 .Extra-Strength -] Calcium 500Mg/Vit-D 200 Units 1 tab PO BID 30 Days #60 tab 07/08/19 [Os-Silvio 500+D -] Metoprolol Succinate [Toprol XL -] 25 mg PO DAILY 30 Days #30 07/08/19 tab.sr.24h Amox-Tr/K Cl [Augmentin - 875Mg 1 tab PO BID #14 tablet 07/09/19 Tablet] Microbiology 07/12/19 00:11 Blood - Peripheral Venous Blood Culture - Preliminary NO GROWTH OBTAINED AFTER 24 HOURS, INCUBATION TO CONTINUE FOR 4 DAYS. 07/12/19 00:30 Blood - Peripheral Venous Blood Culture - Preliminary NO GROWTH OBTAINED AFTER 24 HOURS, INCUBATION TO CONTINUE FOR 4 DAYS. Urine Test Results Urine Color Yellow 07/12/19 00:11 Urine Appearance Cloudy 07/12/19 00:11 Urine pH 5.0 (5.0-8.0) D 07/12/19 00:11 Ur Specific [place] 1.019 (1.010-1.035) 07/12/19 00:11 Urine Protein 1+ (NEGATIVE) H 07/12/19 00:11 Urine Glucose (UA) Negative (NEGATIVE) 07/12/19 00:11 Urine Ketones Negative (NEGATIVE) 07/12/19 00:11 Urine Blood 1+ (NEGATIVE) H 07/12/19 00:11 Urine Nitrite Negative (NEGATIVE) 07/12/19 00:11 Urine Bilirubin Negative (NEGATIVE) 07/12/19 00:11 Ur Leukocyte Esterase Negative (NEGATIVE) 07/12/19 00:11 ABG Results ABG pH 7.41 (7.35-7.45) 07/12/19 01:14 ABG pCO2 at Pt Temp 36.0 mmHg (35-45) 07/12/19 01:14 ABG pO2 at Pt Temp 339 mmHg (80-100) H 07/12/19 01:14 ABG HCO3 22.1 mmol/L (22-27) 07/12/19 01:14 ABG O2 Sat (Measured) 99.7 % (95-98) H 07/12/19 01:14 ABG O2 Content No Result Required. 07/12/19 01:14 ABG Base Excess -1.6 meq/l (-2-2) 07/12/19 01:14 Microbiology 07/13/19 18:30 Sputum - Endotrachea Suction/Ventilator Gram Stain - Final 07/13/19 18:30 Sputum - Endotrachea Suction/Ventilator Sputum Culture - Final Yeast Like Organism 07/12/19 00:11 Blood - Peripheral Venous Blood Culture - Preliminary NO GROWTH OBTAINED AFTER 96 HOURS, INCUBATION TO CONTINUE FOR 1 DAYS. 07/12/19 00:30 Blood - Peripheral Venous Blood Culture - Preliminary NO GROWTH OBTAINED AFTER 96 HOURS, INCUBATION TO CONTINUE FOR 1 DAYS. 07/14/19 05:50 Urine For Antigen Detection Legionella Antigen - Final 07/14/19 05:50 Urine For Antigen Detection Streptococcus pneumoniae Antigen (M - Final 07/12/19 00:11 Urine - Urine - Catheterized Urine Culture - Final NO GROWTH OBTAINED ASSESSMENT AND PLAN: Patient is an 88 y/of with Pmhx of diastolic dysfunction , HTN, depression, chronic R subdural hematoma , h/o ETOH abuse, R carotid artery stenosis, with a recent admission for PNA , and UTI, during which she had NSVT, was admitted for acute AMS and with acute hypoximia , hypercapnic resp failure. #S/p ptx ; chest tube placed and lung expanded, continue chest tube on water seal if lung remains expanded. cardio thoraci sx on the case # Acute hypoxic hypercapnic respiratory failure s/p intubation. due to due to PNA, Vent management per ICU team # Acute diastolic heart failure ( hyponatremia, elevated BNP, b/l pleural effusions, LE edema,) last echo reviewed. repeat echo # Septic shock due to PNA: continue Abx , on levophed continue with MAP>65 # Acute PNA: cefepime and vanco ; blood and urine cx as above. # HARJINDER: likely prerenal. improved , monitor cr. no need fro renal US # Acute Hyponatremia: could be due to acute heart failure VS poor po intake; urine electrolytes pending # Acute Transaminitis: could be due to sepsis, vs passive liver congestion from heart failure. tylenol level is low. # R pneumothorax s/p TLC per ED: resolved on repeat cxray , repeT CXR # ELEvated trop: EKG with new inverted TW in anterioseptal leads and L axis deviation which are new compared to EKG form last admission - can't r/o NSTEMi but demand ischemia from sepsis and hypoxia is possible DVT PX : add heparin SQ
[2019-07-14] MEDS: CHLORHEXIDINE GLUCONATE 4% CLEANSER FOR DECOLONIZATION TP SCH (22:06)
[2019-07-15] MEDS ORDERED: CEFEPIME HCL 1 GM VIAL (RESTRICTED TO ID) ONE ×3 (01:18→17:21)
[2019-07-15] MEDS ORDERED: DEXTROSE 5%-WATER 100 ML IVPB ONE ×2 (01:18→10:15)
[2019-07-15] MEDS: CEFEPIME 1 GM in DEXTROSE 5%-WATER 100 ML IVPB SCH ×3 (01:53→17:41)
[2019-07-15] MEDS ORDERED: fentaNYL CITRATE 250 MCG/5 ML VIAL ONE ×2 (01:58→20:46)
[2019-07-15] MEDS: FENTANYL INJECTION 500 MCG in DEXTROSE 5%-WATER - 90 ML IVPB SCH (02:00)
[2019-07-15 06:56] LABS: BASO % 0.8 % (0-2.0); EOS % 0.7 % (0-4.5); HEMOGLOBIN 11.1 GM/dL (10.7-15.3); LYMPH % 13.3 % (8-40); MCH 30.1 pg (25.7-33.7); MCHC 33.6 g/dl (32.0-36.0); MEAN CELL VOLUME 89.6 fl (80-96); MEAN PLT VOLUME 8.5 fl (7.5-11.1); MONO % 9.6 % (3.8-10.2); NEUT % 75.6 % (42.8-82.8); PLATELET COUNT 249 K/MM3 (134-434); RBC 3.69 M/mm3 (3.60-5.2); RDW 13.7 % (11.6-15.6); WHITE BLOOD COUNT 9.7 K/mm3 (4.0-10.0)
[2019-07-15 07:33] LABS: ALBUMIN 2.4 g/dl (3.4-5.0); BILIRUBIN,TOTAL 0.8 mg/dL (0.2-1); BLOOD UREA NITROGEN 9.5 mg/dL (7-18); CALCIUM 7.5 mg/dL (8.5-10.1); CREATININE 0.3 mg/dL (0.55-1.3); MAGNESIUM 2.2 mg/dL (1.8-2.4); PHOSPHOROUS 2.7 mg/dL (2.5-4.9); POTASSIUM 3.6 mmol/L (3.5-5.1); TOT PROT 4.6 g/dl (6.4-8.2)
[2019-07-15] MEDS: HEPARIN NA (PORCINE) 5,000 UNITS/ML 1ML VIAL SQ SCH ×3 (08:14→21:27)
[2019-07-15] MEDS: NOREPINEPHRINE BITARTRATE 8,000 MCG in DEXTROSE 5%-WATER - 492 ML IV SCH (08:15)
--- NOTE | 2019-07-15 10:02 | PN ---
Progress Note, Physician History of Present Illness: Sedated on vent, remains off levophed gtt, right chest tube in place. - Current Medication List Current Medications: Active Medications Acetaminophen (Ofirmev Injection -) 1,000 mg IVPB Q6H PRN PRN Reason: FEVER Last Admin: 07/13/19 21:41 Dose: 1,000 mg Aspirin (Ecotrin -) 81 mg PO DAILY LISA Last Admin: 07/14/19 09:17 Dose: Not Given Chlorhexidine Gluconate (Hibiclens For Decolonization -) 1 applic TP HS LISA Last Admin: 07/14/19 22:06 Dose: Not Given Heparin Sodium (Porcine) (Heparin -) 5,000 unit SQ TID LISA Last Admin: 07/15/19 08:14 Dose: 5,000 unit Fentanyl 500 mcg/ Dextrose 100 mls @ 4 mls/hr IVPB TITR LISA Last Admin: 07/15/19 02:00 Dose: 50 mcg/hr, 10 mls/hr Norepinephrine Bitartrate 8, (000 mcg/ Dextrose) 500 mls @ 5.61 mls/hr IV ASDIR LISA; Protocol Last Admin: 07/15/19 08:15 Dose: Not Given Propofol (Diprivan -) 1,000,000 mcg in 100 mls @ 2.82 mls/hr IVPB TITR LISA; Protocol Last Titration: 07/14/19 11:00 Dose: 12.5 mcg/kg/min, 3.525 mls/hr Cefepime HCl 1 gm/ Dextrose 100 mls @ 100 mls/hr IVPB Q8H-IV LISA; Protocol Last Admin: 07/15/19 01:53 Dose: 100 mls/hr Vancomycin HCl (Vancomycin (Pre-Docked)) 1,000 mg in 250 mls @ 200 mls/hr IVPB Q24H LISA; Protocol Last Admin: 07/14/19 11:39 Dose: 200 mls/hr Sodium Chloride (Normal Saline -) 1,000 mls @ 83 mls/hr IV ASDIR LISA Last Admin: 07/14/19 22:07 Dose: 83 mls/hr Midazolam HCl 100 mg/ Sodium (Chloride) 100 mls @ 1 mls/hr IVPB TITR LISA; Protocol Last Titration: 07/14/19 10:05 Dose: 0 mg/hr, 0 mls/hr Mupirocin (Bactroban Ointment (For Decolonization) -) 1 applic NS BID LISA Stop: 07/17/19 09:59 Last Admin: 07/14/19 22:01 Dose: 1 applic - Objective Vital Signs: Vital Signs Temperature 99.0 F 07/14/19 14:00 Pulse Rate 90 07/15/19 08:05 Respiratory Rate 21 H 07/15/19 09:00 Blood Pressure 127/41 L 07/15/19 08:00 O2 Sat by Pulse Oximetry (%) 98 07/15/19 09:26 Constitutional: Yes: No Distress, Calm, Thin Neck: Yes: Supple Cardiovascular: Yes: Regular Rate and Rhythm Respiratory: Yes: Intubated, Mechanically Ventilated, Rhonchi, Other (Right chest tube with increased output w/o airleak) Gastrointestinal: Yes: Normal Bowel Sounds, Soft Edema: No Labs: CBC, BMP 07/15/19 06:00 07/15/19 06:00 INR, PTT INR 1.34 (0.83-1.09) H 07/12/19 06:00 - ....Imaging Chest X-ray: Report Reviewed (Right chest tube in place) EKG: Report Reviewed (Tele: NSR) Problem List - Problems (1) Respiratory failure Code(s): J96.90 - RESPIRATORY FAILURE, UNSP, UNSP W HYPOXIA OR HYPERCAPNIA Qualifiers: Chronicity: acute Respiratory failure complication: hypoxia and hypercapnia Qualified Code(s): J96.01 - Acute respiratory failure with hypoxia ; J96.02 - Acute respiratory failure with hypercapnia (2) Diastolic dysfunction Code(s): I51.89 - OTHER ILL-DEFINED HEART DISEASES (3) Demand ischemia Code(s): I24.8 - OTHER FORMS OF ACUTE ISCHEMIC HEART DISEASE (4) Ischemic hepatitis Code(s): K75.9 - INFLAMMATORY LIVER DISEASE, UNSPECIFIED (5) Septic shock Code(s): A41.9 - SEPSIS, UNSPECIFIED ORGANISM; R65.21 - SEVERE SEPSIS WITH SEPTIC SHOCK (6) Iatrogenic pneumothorax Code(s): J95.811 - POSTPROCEDURAL PNEUMOTHORAX Assessment/Plan 07/12/2019 echo: Normal biventrucular size and fxn, mod MR, AR 1. Acute Hypoxic and Hypercapneic Respiratory Failure 2. Pneumonia 3. Post Septic Shock 4. Coronary artery disease with demand ischemic injury angina pectoris/elevated troponin I level related to sepsis syndrome 5. Diastolic left ventricular dysfunction with clinical class 0-I [place] [employer] classification left ventricular failure/elevated B-type natriuretic peptide- most likely related to sepsis syndrome 6. Hypertensive cardiovascular disease, hypotension related to the above-noted sepsis syndrome 7. History of non-sustained ventricular tachycardia 8. Aortic valve regurgitation 9. Tricuspid valve regurgitation with moderate degree of pulmonary hypertension 10. History of carotid stenosis, moderate in severity 11. Iatrogenic pneumothorax post right chest tube insertion/complication of subclavian line insertion 12. Abnormal liver function testing trending down, likely shock liver 13. Hyponatremia resolved 14. Chronic Subdural Hematoma PLAN: 1. Antibiotics per C&S, remains off levophed gtt as MAP >65 2. Agree with ASA 81 qd, resume metoprolol 25 bid, start JOHANNA inhibitor or angiotensin receptor tino therapy, hemodynamics permitting (now off of pressor therapy) 3. Ventilator management as per the critical care team, enteral feeds, daily sedation vacations to assess mental status, spontaneous breathing trials as tolerated 4. Chest tube management as per the critical care team 5. DVT/GI prophylaxis
--- NOTE | 2019-07-15 10:11 | PN ---
Teaching Attending Note Name of Resident: Zoila Espinosa ATTENDING PHYSICIAN STATEMENT I saw and evaluated the patient. I reviewed the resident's note and discussed the case with the resident. I agree with the resident's findings and plan as documented. SUBJECTIVE: Patient seen and examined in the ICU. Remains intubated, sedated. Currently off levophed drip for hemodynamic support. CT: no air leak, increased output OBJECTIVE: Intake & Output 07/12/19 07/13/19 07/14/19 07/15/19 23:59 23:59 23:59 23:59 Intake Total 1804.6 1119 1947.5 1115 Output Total 675 3180 390 0 Balance 1129.6 -2061 1557.5 1115 Weight 103 lb 9.876 oz 115 lb 95 lb 10.89 oz 110 lb 1 oz Last Vital Signs Temp Pulse Resp BP Pulse Ox 99.0 F 90 21 H 127/41 L 98 07/14/19 14:00 07/15/19 08:05 07/15/19 09:00 07/15/19 08:00 07/15/19 09:26 Active Medications Acetaminophen (Ofirmev Injection -) 1,000 mg IVPB Q6H PRN PRN Reason: FEVER Last Admin: 07/13/19 21:41 Dose: 1,000 mg Aspirin (Ecotrin -) 81 mg PO DAILY [facility] Last Admin: 07/14/19 09:17 Dose: Not Given Chlorhexidine Gluconate (Hibiclens For Decolonization -) 1 applic TP HS LISA Last Admin: 07/14/19 22:06 Dose: Not Given Heparin Sodium (Porcine) (Heparin -) 5,000 unit SQ TID LISA Last Admin: 07/15/19 08:14 Dose: 5,000 unit Fentanyl 500 mcg/ Dextrose 100 mls @ 4 mls/hr IVPB TITR LISA Last Admin: 07/15/19 02:00 Dose: 50 mcg/hr, 10 mls/hr Norepinephrine Bitartrate 8, (000 mcg/ Dextrose) 500 mls @ 5.61 mls/hr IV ASDIR LISA; Protocol Last Admin: 07/15/19 08:15 Dose: Not Given Propofol (Diprivan -) 1,000,000 mcg in 100 mls @ 2.82 mls/hr IVPB TITR [facility]; Protocol Last Titration: 07/14/19 11:00 Dose: 12.5 mcg/kg/min, 3.525 mls/hr Cefepime HCl 1 gm/ Dextrose 100 mls @ 100 mls/hr IVPB Q8H-IV LISA; Protocol Last Admin: 07/15/19 01:53 Dose: 100 mls/hr Vancomycin HCl (Vancomycin (Pre-Docked)) 1,000 mg in 250 mls @ 200 mls/hr IVPB Q24H LISA; Protocol Last Admin: 07/14/19 11:39 Dose: 200 mls/hr Sodium Chloride (Normal Saline -) 1,000 mls @ 83 mls/hr IV ASDIR LISA Last Admin: 07/14/19 22:07 Dose: 83 mls/hr Midazolam HCl 100 mg/ Sodium (Chloride) 100 mls @ 1 mls/hr IVPB TITR LISA; Protocol Last Titration: 07/14/19 10:05 Dose: 0 mg/hr, 0 mls/hr Mupirocin (Bactroban Ointment (For Decolonization) -) 1 applic NS BID LISA Stop: 07/17/19 09:59 Last Admin: 07/14/19 22:01 Dose: 1 applic Gen: intubated, sedated Heart: RRR Lung: Vented, scattered bilateral rhonchi, decreased breath sounds at the bases , intact right chest tube Abd: soft, nontender Ext: RUE edema Laboratory Results - last 24 hr 07/12/19 07/14/19 07/14/19 06:00 11:53 18:44 WBC RBC Hgb Hct MCV MCH MCHC RDW Plt Count MPV Absolute Neuts (auto) Neutrophils % Lymphocytes % Monocytes % Eosinophils % Basophils % Nucleated RBC % Sodium Potassium Chloride Carbon Dioxide Anion Gap BUN Creatinine Est GFR (CKD-EPI)AfAm Est GFR (CKD-EPI)NonAf POC Glucometer 89 85 Random Glucose Calcium Phosphorus Magnesium Total Bilirubin AST ALT Alkaline Phosphatase Total Protein Albumin Ethylene Glycol <5 07/15/19 07/15/19 06:00 06:00 WBC 9.7 RBC 3.69 Hgb 11.1 Hct 33.0 MCV 89.6 MCH 30.1 MCHC 33.6 RDW 13.7 Plt Count 249 MPV 8.5 D Absolute Neuts (auto) 7.3 Neutrophils % 75.6 Lymphocytes % 13.3 Monocytes % 9.6 Eosinophils % 0.7 Basophils % 0.8 Nucleated RBC % 0 Sodium 139 Potassium 3.6 Chloride 108 H Carbon Dioxide 25 Anion Gap 6 L BUN 9.5 Creatinine 0.3 L Est GFR (CKD-EPI)AfAm 120.16 Est GFR (CKD-EPI)NonAf 103.67 POC Glucometer Random Glucose 99 Calcium 7.5 L Phosphorus 2.7 Magnesium 2.2 Total Bilirubin 0.8 AST 135 H ALT 305 H Alkaline Phosphatase 67 Total Protein 4.6 L Albumin 2.4 L Ethylene Glycol IMP: Acute Hypoxic and Hypercapneic Respiratory Failure Pneumonia Septic Shock Acute Kidney Injury Lactic Acidosis +Troponins likely Demand Ischemia Elevated LFTs likely Ischemic Injury Hyponatremia Right Pneumothorax s/p chest tube placement LV Diastolic Dysfunction Chronic Subdural Hematoma PLAN: - Sedation vacation to assess how mental status - continue antibiotics - IVF - monitor urine output, creatinine - Levophed drip to maintain MAP >65 - spontaneous breathing trials as tolerated - Enteral feeds - DVT/GI prophylaxis - Requires continued ICU monitoring Dr Pemberton Critical care time spent in reviewing chart, evaluating patient and formulating plan 36 min
--- NOTE | 2019-07-15 10:15 | PN ---
Progress Note (short form) - Note Progress Note: intubated intubated in ED 07/12 s/p chest tube placement for PTX off levophed awake Vital Signs Period Temp Pulse Resp BP Sys/Da Silva Pulse Ox Last 24 Hr 99.0 F-100.1 F 59-90 20-22 112-196/35-49 98-99 cor-rrr lungs bilateral rhonchi +chest tube abd soft,nt ext trace edema CBC, BMP 07/15/19 06:00 07/15/19 06:00 Microbiology 07/13/19 18:30 Sputum - Endotrachea Suction/Ventilator Gram Stain - Final 07/13/19 18:30 Sputum - Endotrachea Suction/Ventilator Sputum Culture - Preliminary Yeast Like Organism 07/12/19 00:11 Blood - Peripheral Venous Blood Culture - Preliminary NO GROWTH OBTAINED AFTER 72 HOURS, INCUBATION TO CONTINUE FOR 2 DAYS. 07/12/19 00:30 Blood - Peripheral Venous Blood Culture - Preliminary NO GROWTH OBTAINED AFTER 72 HOURS, INCUBATION TO CONTINUE FOR 2 DAYS. 07/14/19 05:50 Urine For Antigen Detection Legionella Antigen - Final 07/14/19 05:50 Urine For Antigen Detection Streptococcus pneumoniae Antigen (M - Final 07/12/19 00:11 Urine - Urine - Catheterized Urine Culture - Final NO GROWTH OBTAINED Current Medications Acetaminophen (Ofirmev Injection -) 1,000 mg IVPB Q6H PRN PRN Reason: FEVER Last Admin: 07/13/19 21:41 Dose: 1,000 mg Aspirin (Ecotrin -) 81 mg PO DAILY [facility] Last Admin: 07/14/19 09:17 Dose: Not Given Chlorhexidine Gluconate (Hibiclens For Decolonization -) 1 applic TP HS [facility] Last Admin: 07/14/19 22:06 Dose: Not Given Heparin Sodium (Porcine) (Heparin -) 5,000 unit SQ TID LISA Last Admin: 07/15/19 08:14 Dose: 5,000 unit Fentanyl 500 mcg/ Dextrose 100 mls @ 4 mls/hr IVPB TITR [facility] Last Admin: 07/15/19 02:00 Dose: 50 mcg/hr, 10 mls/hr Norepinephrine Bitartrate 8, (000 mcg/ Dextrose) 500 mls @ 5.61 mls/hr IV ASDIR LISA; Protocol Last Admin: 07/15/19 08:15 Dose: Not Given Propofol (Diprivan -) 1,000,000 mcg in 100 mls @ 2.82 mls/hr IVPB TITR LISA; Protocol Last Titration: 07/14/19 11:00 Dose: 12.5 mcg/kg/min, 3.525 mls/hr Cefepime HCl 1 gm/ Dextrose 100 mls @ 100 mls/hr IVPB Q8H-IV LISA; Protocol Last Admin: 07/15/19 01:53 Dose: 100 mls/hr Vancomycin HCl (Vancomycin (Pre-Docked)) 1,000 mg in 250 mls @ 200 mls/hr IVPB Q24H [facility]ISA; Protocol Last Admin: 07/14/19 11:39 Dose: 200 mls/hr Sodium Chloride (Normal Saline -) 1,000 mls @ 83 mls/hr IV ASDIR LISA Last Admin: 07/14/19 22:07 Dose: 83 mls/hr Midazolam HCl 100 mg/ Sodium (Chloride) 100 mls @ 1 mls/hr IVPB TITR LISA; Protocol Last Titration: 07/14/19 10:05 Dose: 0 mg/hr, 0 mls/hr Mupirocin (Bactroban Ointment (For Decolonization) -) 1 applic NS BID LISA Stop: 07/17/19 09:59 Last Admin: 07/14/19 22:01 Dose: 1 applic a/p respiratory failure pneumonia abnl lfts +troponins PTX d/c vancomycin no mrsa continue cefepime improved, normal wbc today
[2019-07-15] MEDS: ASPIRIN COATED 81 MG TABLET.EC PO SCH (10:39)
[2019-07-15] MEDS: MUPIROCIN 2% TOPICAL OINTMENT FOR DECOLONIZATION NS SCH ×2 (10:39→21:28)
--- NOTE | 2019-07-15 11:42 | PN ---
Physical Exam: SUBJECTIVE: Patient seen and examined. C/w daily sedation vacations to assess mental status. Off pressors. Vanc d/c'd OBJECTIVE: Vital Signs Period Temp Pulse Resp BP Sys/Da Silva Pulse Ox Last 24 Hr 99.0 F-100.1 F 66-90 20-22 112-151/35-49 98-99 GENERAL: Intubated & sedated HEENT: pupils reactive, accomodate to light b/l LUNGS: B/l decr base breath sounds. R chest tube in place on water seal, 40mL output 24h HEART: RRR S1S2 heard no murmurs. ABDOMEN: Soft NTND. + BS EXTREMITIES: 2+ pulses, warm, well-perfused. RUE nonpitting edema. R arm hematoma NEUROLOGICAL: sedated Laboratory Results - last 24 hr 07/12/19 07/14/19 07/14/19 06:00 11:53 18:44 WBC RBC Hgb Hct MCV MCH MCHC RDW Plt Count MPV Absolute Neuts (auto) Neutrophils % Lymphocytes % Monocytes % Eosinophils % Basophils % Nucleated RBC % Sodium Potassium Chloride Carbon Dioxide Anion Gap BUN Creatinine Est GFR (CKD-EPI)AfAm Est GFR (CKD-EPI)NonAf POC Glucometer 89 85 Random Glucose Calcium Phosphorus Magnesium Total Bilirubin AST ALT Alkaline Phosphatase Total Protein Albumin Vancomycin Pre-Dose Ethylene Glycol <5 07/15/19 07/15/19 07/15/19 06:00 06:00 09:50 WBC 9.7 RBC 3.69 Hgb 11.1 Hct 33.0 MCV 89.6 MCH 30.1 MCHC 33.6 RDW 13.7 Plt Count 249 MPV 8.5 D Absolute Neuts (auto) 7.3 Neutrophils % 75.6 Lymphocytes % 13.3 Monocytes % 9.6 Eosinophils % 0.7 Basophils % 0.8 Nucleated RBC % 0 Sodium 139 Potassium 3.6 Chloride 108 H Carbon Dioxide 25 Anion Gap 6 L BUN 9.5 Creatinine 0.3 L Est GFR (CKD-EPI)AfAm 120.16 Est GFR (CKD-EPI)NonAf 103.67 POC Glucometer Random Glucose 99 Calcium 7.5 L Phosphorus 2.7 Magnesium 2.2 Total Bilirubin 0.8 AST 135 H ALT 305 H Alkaline Phosphatase 67 Total Protein 4.6 L Albumin 2.4 L Vancomycin Pre-Dose 8.5 L Ethylene Glycol 07/15/19 10:58 WBC RBC Hgb Hct MCV MCH MCHC RDW Plt Count MPV Absolute Neuts (auto) Neutrophils % Lymphocytes % Monocytes % Eosinophils % Basophils % Nucleated RBC % Sodium Potassium Chloride Carbon Dioxide Anion Gap BUN Creatinine Est GFR (CKD-EPI)AfAm Est GFR (CKD-EPI)NonAf POC Glucometer 225 Random Glucose Calcium Phosphorus Magnesium Total Bilirubin AST ALT Alkaline Phosphatase Total Protein Albumin Vancomycin Pre-Dose Ethylene Glycol Active Medications Generic Name Dose Route Start Last Admin Trade Name Freq PRN Reason Stop Dose Admin Acetaminophen 1,000 mg 07/13/19 21:33 07/13/19 21:41 Ofirmev Injection - IVPB 1,000 mg Q6H PRN Administration FEVER Aspirin 81 mg 07/14/19 10:00 07/15/19 10:39 Ecotrin - PO Not Given DAILY LISA Chlorhexidine Gluconate 1 applic 07/12/19 22:00 07/14/19 22:06 Hibiclens For Decolonization - TP Not Given HS LISA Heparin Sodium (Porcine) 5,000 unit 07/12/19 14:00 07/15/19 08:14 Heparin - SQ 5,000 unit TID LISA Administration Fentanyl 500 mcg/ Dextrose 100 mls @ 4 mls/hr 07/12/19 00:15 07/15/19 02:00 IVPB 50 mcg/hr TITR LISA 10 mls/hr Administration 20 MCG/HR Norepinephrine Bitartrate 8, 500 mls @ 5.61 mls/hr 07/12/19 05:30 07/15/19 08 :15 000 mcg/ Dextrose IV Not Given ASDIR LISA Protocol 0.03 MCG/KG/MIN Propofol 1,000,000 mcg in 100 mls @ 2.82 mls/hr 07/12/19 06:30 07/14/19 11:00 Diprivan - IVPB 12.5 mcg/kg/min TITR LISA 3.525 mls/hr Titration Protocol 10 MCG/KG/MIN Cefepime HCl 1 gm/ Dextrose 100 mls @ 100 mls/hr 07/12/19 18:00 07/15/19 10: 38 IVPB 100 mls/hr Q8H-IV LISA Administration Protocol Sodium Chloride 1,000 mls @ 83 mls/hr 07/12/19 13:30 07/14/19 22:07 Normal Saline - IV 83 mls/hr ASDIR LISA Administration Midazolam HCl 100 mg/ Sodium 100 mls @ 1 mls/hr 07/14/19 03:45 07/14/19 10:05 Chloride IVPB 0 mg/hr TITR LISA 0 mls/hr Titration Protocol 1 MG/HR Mupirocin 1 applic 07/12/19 10:00 07/15/19 10:39 Bactroban Ointment (For Decolonization) - NS 07/17/19 09:59 1 applic BID LISA Administration ASSESSMENT/PLAN: 88 y.o. F PMH HTN, recurring falls, depression, diastolic HFpEF, aortic stenosis , CCA stenosis, recently d/c'd 07/10/19 2/2 PNA, presenting with acute hypoxic hypercarbic respiratory failure 2/2 PNA. #Neuro -Sedated (propofol, fentanyl, versed); sedation vacations daily -Hx of depression #CV -Weaned from pressors -Normocardic -Echo done 07/07/19: EF 55-60%, mild MR, pulm HTN, & AR -EKG NSR no ST changes -Trops downtrended -Cardio Dr. Goddard/ Dr. Beck following-- continue daily aspirin, resume metoprolol 25mg bid, start skyler/arb once permitting #Pulm -chest tube removal once extubated -CXR today: incr R lung changes -Vent settings: AC mode TV 350 RR 20 FiO2 40% PEEP 5 -BNP [id number]; holding Lasix -Aspiration precautions -oral care prn #Renal -HARJINDER, resolved -monitor Cr #GI -Transaminitis likely 2/2 sepsis -LFT's downtrending, continue to monitor #Heme/Onc -Leukocytosis 2/2 PNA resolved -Blood cx's neg # -Mills in place #ID -C/w abx cefepime -legionella ag negative -Dr. Graham/ Dr. Booker following #PPX -Heparin SQ #FEN -NS @83mL/ hr -sodium normalized; trend lytes -Started on tube feeds, osmolite Visit type - Emergency Visit Emergency Visit: No - New Patient This patient is new to me today: No - Critical Care Critical Care patient: Yes Total Critical Care Time (in minutes): 36 Critical Care Statement: The care of this patient involved high complexity decision making to prevent further life threatening deterioration of the patient 's condition and/or to evaluate & treat vital organ system(s) failure or risk of failure. ATTENDING PHYSICIAN STATEMENT I saw and evaluated the patient. I reviewed the resident's note and discussed the case with the resident. I agree with the resident's findings and plan as documented. SUBJECTIVE: OBJECTIVE: ASSESSMENT AND PLAN:
--- NOTE | 2019-07-15 14:59 | PN ---
Physical Exam: SUBJECTIVE: Patient seen and examined in bed, intubated and on ventilator CAIO 4. Today she is off levophed gtt. OBJECTIVE: Vital Signs Period Temp Pulse Resp BP Sys/Da Silva Pulse Ox Last 24 Hr 99.6 F-100.1 F 66-90 20-22 113-151/35-41 98-99 V[place] SETT[place], 20, 5, 100% GENERAL: Intubated and sedated HEAD: NC. 3 cm healed, vertical laceration on RIGHT christian EYES: 2 mm pupils. Sluggishly reactive to light and accommodation. ENT: Ears normal, nares patent, oropharynx clear without exudates. Moist mucous membranes. ET in place. LUNGS: CTAB. No wheezes, and no crackles. No accessory muscle use. HEART: RRR s1 s2. 2/6 systolic murmur radiating to back. ABDOMEN: Soft, BS present in all 4 quadrants, non-distended, no JVD, MUSCULOSKELETAL: No bony deformities or tenderness. Chest tube in place on RIGHT UPPER EXTREMITIES: 2+ pulses, warm, well-perfused. No cyanosis. No clubbing. No peripheral edema. LOWER EXTREMITIES: 2+ pulses, warm, well-perfused. No calf tenderness. No peripheral edema. SKIN: 2x5 RUE ecchymosis. Echymosis on flexor surface of RUE. Warm, dry, normal turgor, normal capillary refill. Laboratory Results - last 24 hr 07/14/19 07/15/19 07/15/19 18:44 06:00 06:00 WBC 9.7 RBC 3.69 Hgb 11.1 Hct 33.0 MCV 89.6 MCH 30.1 MCHC 33.6 RDW 13.7 Plt Count 249 MPV 8.5 D Absolute Neuts (auto) 7.3 Neutrophils % 75.6 Lymphocytes % 13.3 Monocytes % 9.6 Eosinophils % 0.7 Basophils % 0.8 Nucleated RBC % 0 Sodium 139 Potassium 3.6 Chloride 108 H Carbon Dioxide 25 Anion Gap 6 L BUN 9.5 Creatinine 0.3 L Est GFR (CKD-EPI)AfAm 120.16 Est GFR (CKD-EPI)NonAf 103.67 POC Glucometer 85 Random Glucose 99 Calcium 7.5 L Phosphorus 2.7 Magnesium 2.2 Total Bilirubin 0.8 AST 135 H ALT 305 H Alkaline Phosphatase 67 Total Protein 4.6 L Albumin 2.4 L Vancomycin Pre-Dose 07/15/19 07/15/19 07/15/19 09:50 10:58 12:01 WBC RBC Hgb Hct MCV MCH MCHC RDW Plt Count MPV Absolute Neuts (auto) Neutrophils % Lymphocytes % Monocytes % Eosinophils % Basophils % Nucleated RBC % Sodium Potassium Chloride Carbon Dioxide Anion Gap BUN Creatinine Est GFR (CKD-EPI)AfAm Est GFR (CKD-EPI)NonAf POC Glucometer 225 120 Random Glucose Calcium Phosphorus Magnesium Total Bilirubin AST ALT Alkaline Phosphatase Total Protein Albumin Vancomycin Pre-Dose 8.5 L Active Medications Acetaminophen (Ofirmev Injection -) 1,000 mg IVPB Q6H PRN PRN Reason: FEVER Last Admin: 07/13/19 21:41 Dose: 1,000 mg Aspirin (Ecotrin -) 81 mg PO DAILY LISA Last Admin: 07/15/19 10:39 Dose: Not Given Chlorhexidine Gluconate (Hibiclens For Decolonization -) 1 applic TP HS LISA Last Admin: 07/14/19 22:06 Dose: Not Given Heparin Sodium (Porcine) (Heparin -) 5,000 unit SQ TID LISA Last Admin: 07/15/19 08:14 Dose: 5,000 unit Fentanyl 500 mcg/ Dextrose 100 mls @ 4 mls/hr IVPB TITR LISA Last Admin: 07/15/19 02:00 Dose: 50 mcg/hr, 10 mls/hr Propofol (Diprivan -) 1,000,000 mcg in 100 mls @ 2.82 mls/hr IVPB TITR LISA; Protocol Last Titration: 07/14/19 11:00 Dose: 12.5 mcg/kg/min, 3.525 mls/hr Cefepime HCl 1 gm/ Dextrose 100 mls @ 100 mls/hr IVPB Q8H-IV LISA; Protocol Last Admin: 07/15/19 10:38 Dose: 100 mls/hr Sodium Chloride (Normal Saline -) 1,000 mls @ 83 mls/hr IV ASDIR LISA Last Admin: 07/14/19 22:07 Dose: 83 mls/hr Midazolam HCl 100 mg/ Sodium (Chloride) 100 mls @ 1 mls/hr IVPB TITR LISA; Protocol Last Titration: 07/14/19 10:05 Dose: 0 mg/hr, 0 mls/hr Metoprolol Tartrate (Lopressor -) 25 mg PO BID [facility] Mupirocin (Bactroban Ointment (For Decolonization) -) 1 applic NS BID [facility] Stop: 07/17/19 09:59 Last Admin: 07/15/19 10:39 Dose: 1 applic ASSESSMENT/PLAN: 88 y/o female PMH HTN, HFpEF, depression, chronic RIGHT subdural hematoma, ETOH abuse, RIGHT carotid artery stenosis, and recent admission for PNA and UTI. Pt brought to hospital after lack of responsiveness and desaturating to the 80s. She was admitted for care of acute hypoxic, hypercapnic respiratory failure. AC Mode of vent, 40% FiO2. No air leak noted on pleural catheter; drain 40 cc overnight. # Acute hypoxic, hypercapnic respiratory failure: Physiologic changes of sepsis vs PNA vs exacerbation of HF - Sedation vacation to assess how mental status - Currently off levophed gtt; maintain MAP >65 - Diastolic left ventricular dysfunction with clinical class 0-I [place] Heart Association classification left ventricular failure/elevated B-type natriuretic peptide- most likely related to sepsis syndrome. Moderate pulmonary HTN. - Flu swab NEGATIVE - Continue cefepime 1 g IV q8h and vancomycin 1 g IV qd - F/u sputum culture - F/u urinary antigens - 3 mcq NE for hemodynamic support, maintain MAP > 65 - Repeat echo: mitral valve regurg, aortic regurg. Echo done 07/07/19: EF 55-60% , mild MR, pulm HTN, & AR - Urine culture NEGATIVE - Blood culture NEGATIVE - F/u urine tox # HTN - Resume metoprolol 25 bid per cardiology recommendation - Start JOHANNA inhibitor or angiotensin receptor tino therapy, hemodynamics permitting # HARJINDER - Improving BUN/Cr 9.5/0.3. Previously 11.4/0.3 - Low cr likely 2/2 low muscle mass - Avoid aggressive hydration # Hyponatremia, resolved - HF vs poor po intake - F/u urine electrolytes: high urineurea nitrogen 545 - I/o - Daily weights # Transaminitis: hypotension vs toxicity vs sepsis vs liver congestion 2/2 heart failure - Repeat liver function improved 132/309 - Likely ischemic hepatitis - US of liver: fatty liver VS hepatocellular disease. 8x9 possible cyst in pancreatic head. Recommend MRI. - Acetominophen level 5.2, WNL # Sepsis with septic shock: Likely due to PNA - Now off ff Levo - Dc vancomycin - Continue Cefepime 1 gm IV q8h # RIGHT pneumothorax - Resolved on repeat CXR - F/u CXR in AM # Troponemia - 0.88 -> 0.93 -> 0.36 - Likely 2/2 sepsis (demand ischemia, hypoxia) - EKG with new inverted TWI anterioseptal leads and L axis deviation which are new compared to EKG form last admission (possible NSTEMI) - Cardiology concurs, likely 2/2 demand in setting of sepsis # Leukocytosis, resolved - WBC 9.7 - PNA vs left shift # Hypophosphatemia, resolved - NL today - Repleted with K phos 30 mg IV on Jul 14 # F/E/N - NS @ 83mL/hr - Cont. to monitor - Enteral feeds if unable to extubate # DVT prophylaxis - Heparin SQ # Disposition - Full code - ICU monitoring Enrrique Lin MD Visit type - Emergency Visit Emergency Visit: No - New Patient This patient is new to me today: No - Critical Care Critical Care patient: Yes Total Critical Care Time (in minutes): 40 Critical Care Statement: The care of this patient involved high complexity decision making to prevent further life threatening deterioration of the patient 's condition and/or to evaluate & treat vital organ system(s) failure or risk of failure. ATTENDING PHYSICIAN STATEMENT I saw and evaluated the patient. I reviewed the resident's note and discussed the case with the resident. I agree with the resident's findings and plan as documented. SUBJECTIVE: OBJECTIVE: ASSESSMENT AND PLAN:
[2019-07-15] MEDS: SODIUM CHLORIDE 1,000 ML IV SCH (15:02)
--- NOTE | 2019-07-15 15:48 | PN ---
Teaching Attending Note Name of Resident: Enrrique Lin ATTENDING PHYSICIAN STATEMENT I saw and evaluated the patient. I reviewed the resident's note and discussed the case with the resident. I agree with the resident's findings and plan as documented. SUBJECTIVE: Patient continues to be intubated and sedated. Vital Signs Temperature 99.6 F 07/15/19 14:00 Pulse Rate 73 07/15/19 14:00 Respiratory Rate 20 07/15/19 14:00 Blood Pressure 142/39 L 07/15/19 14:00 O2 Sat by Pulse Oximetry (%) 98 07/15/19 09:26 GENERAL: The patient is Intubated, sedated, HEAD: Normal with no signs of trauma. EYES:round small pupils, reactive to light ENT: Ears normal, nares patent, oropharynx clear without exudates, moist mucous membranes. NECK: Trachea midline, full range of motion, supple. LUNGS: Breath sounds equal, clear to auscultation bilaterally, no wheezes, no crackles, no accessory muscle use. HEART: RRR, 2/6 SM at apex which is heard louder in L axilla. 3/6 SM heard in back. No JVD ABDOMEN: Soft, soft, hypoactive BS. no grimacing with palpation EXTREMITIES: 2+ pulses, warm, well-perfused,2+ pitting edemas NEUROLOGICAL: Cranial nerves II through XII grossly intact. Normal speech, gait not observed. PSYCH: Normal mood, normal affect. SKIN: Warm, dry, normal turgor, no rashes or lesions noted CBCD WBC 9.7 K/mm3 (4.0-10.0) 07/15/19 06:00 RBC 3.69 M/mm3 (3.60-5.2) 07/15/19 06:00 Hgb 11.1 GM/dL (10.7-15.3) 07/15/19 06:00 Hct 33.0 % (32.4-45.2) 07/15/19 06:00 MCV 89.6 fl (80-96) 07/15/19 06:00 MCHC 33.6 g/dl (32.0-36.0) 07/15/19 06:00 RDW 13.7 % (11.6-15.6) 07/15/19 06:00 Plt Count 249 K/MM3 (134-434) 07/15/19 06:00 MPV 8.5 fl (7.5-11.1) D 07/15/19 06:00 CMP Sodium 139 mmol/L (136-145) 07/15/19 06:00 Potassium 3.6 mmol/L (3.5-5.1) 07/15/19 06:00 Chloride 108 mmol/L (98-107) H 07/15/19 06:00 Carbon Dioxide 25 mmol/L (21-32) 07/15/19 06:00 Anion Gap 6 MMOL/L (8-16) L 07/15/19 06:00 BUN 9.5 mg/dL (7-18) 07/15/19 06:00 Creatinine 0.3 mg/dL (0.55-1.3) L 07/15/19 06:00 Random Glucose 99 mg/dL (74-106) 07/15/19 06:00 Calcium 7.5 mg/dL (8.5-10.1) L 07/15/19 06:00 Total Bilirubin 0.8 mg/dL (0.2-1) 07/15/19 06:00 AST 135 U/L (15-37) H 07/15/19 06:00 ALT 305 U/L (13-61) H 07/15/19 06:00 Alkaline Phosphatase 67 U/L (45-117) 07/15/19 06:00 Total Protein 4.6 g/dl (6.4-8.2) L 07/15/19 06:00 Albumin 2.4 g/dl (3.4-5.0) L 07/15/19 06:00 CARDIAC ENZYMES Creatine Kinase 100 U/L (26-192) 07/13/19 05:45 Troponin I 0.36 ng/ml (0.00-0.05) H 07/13/19 05:45 Home Medications Medication Instructions Recorded LORazepam [Lorazepam] 0.5 mg PO TID 07/07/19 Sertraline HCl 50 mg PO DAILY 07/07/19 traZODone HCL [Trazodone HCl] 50 mg PO DAILY 07/07/19 Acetaminophen [Tylenol 1,000 mg PO Q6H PRN #0 tablet 07/08/19 .Extra-Strength -] Calcium 500Mg/Vit-D 200 Units 1 tab PO BID 30 Days #60 tab 07/08/19 [Os-Silvio 500+D -] Metoprolol Succinate [Toprol XL -] 25 mg PO DAILY 30 Days #30 07/08/19 tab.sr.24h Amox-Tr/K Cl [Augmentin - 875Mg 1 tab PO BID #14 tablet 07/09/19 Tablet] Current Medications Generic Name Dose Route Start Last Admin Trade Name Freq PRN Reason Stop Dose Admin Acetaminophen 1,000 mg 07/13/19 21:33 07/13/19 21:41 Ofirmev Injection - IVPB 1,000 mg Q6H PRN Administration FEVER Aspirin 81 mg 07/14/19 10:00 07/15/19 10:39 Ecotrin - PO Not Given DAILY LISA Chlorhexidine Gluconate 1 applic 07/12/19 22:00 07/14/19 22:06 Hibiclens For Decolonization - TP Not Given HS LISA Heparin Sodium (Porcine) 5,000 unit 07/12/19 14:00 07/15/19 15:02 Heparin - SQ 5,000 unit TID LISA Administration Fentanyl 500 mcg/ Dextrose 100 mls @ 4 mls/hr 07/12/19 00:15 07/15/19 02:00 IVPB 50 mcg/hr TITR LISA 10 mls/hr Administration 20 MCG/HR Propofol 1,000,000 mcg in 100 mls @ 2.82 mls/hr 07/12/19 06:30 07/14/19 11:00 Diprivan - IVPB 12.5 mcg/kg/min TITR LISA 3.525 mls/hr Titration Protocol 10 MCG/KG/MIN Cefepime HCl 1 gm/ Dextrose 100 mls @ 100 mls/hr 07/12/19 18:00 07/15/19 10: 38 IVPB 100 mls/hr Q8H-IV LISA Administration Protocol Sodium Chloride 1,000 mls @ 83 mls/hr 07/12/19 13:30 07/15/19 15:02 Normal Saline - IV 83 mls/hr ASDIR LISA Administration Midazolam HCl 100 mg/ Sodium 100 mls @ 1 mls/hr 07/14/19 03:45 07/14/19 10:05 Chloride IVPB 0 mg/hr TITR LISA 0 mls/hr Titration Protocol 1 MG/HR Metoprolol Tartrate 25 mg 07/15/19 22:00 Lopressor - PO BID LISA Mupirocin 1 applic 07/12/19 10:00 07/15/19 10:39 Bactroban Ointment (For Decolonization) - NS 07/17/19 09:59 1 applic BID LISA Administration Microbiology 07/12/19 00:11 Blood - Peripheral Venous Blood Culture - Preliminary NO GROWTH OBTAINED AFTER 24 HOURS, INCUBATION TO CONTINUE FOR 4 DAYS. 07/12/19 00:30 Blood - Peripheral Venous Blood Culture - Preliminary NO GROWTH OBTAINED AFTER 24 HOURS, INCUBATION TO CONTINUE FOR 4 DAYS. Urine Test Results Urine Color Yellow 07/12/19 00:11 Urine Appearance Cloudy 07/12/19 00:11 Urine pH 5.0 (5.0-8.0) D 07/12/19 00:11 Ur Specific Davis 1.019 (1.010-1.035) 07/12/19 00:11 Urine Protein 1+ (NEGATIVE) H 07/12/19 00:11 Urine Glucose (UA) Negative (NEGATIVE) 07/12/19 00:11 Urine Ketones Negative (NEGATIVE) 07/12/19 00:11 Urine Blood 1+ (NEGATIVE) H 07/12/19 00:11 Urine Nitrite Negative (NEGATIVE) 07/12/19 00:11 Urine Bilirubin Negative (NEGATIVE) 07/12/19 00:11 Ur Leukocyte Esterase Negative (NEGATIVE) 07/12/19 00:11 ABG Results ABG pH 7.41 (7.35-7.45) 07/12/19 01:14 ABG pCO2 at Pt Temp 36.0 mmHg (35-45) 07/12/19 01:14 ABG pO2 at Pt Temp 339 mmHg (80-100) H 07/12/19 01:14 ABG HCO3 22.1 mmol/L (22-27) 07/12/19 01:14 ABG O2 Sat (Measured) 99.7 % (95-98) H 07/12/19 01:14 ABG O2 Content No Result Required. 07/12/19 01:14 ABG Base Excess -1.6 meq/l (-2-2) 07/12/19 01:14 Microbiology 07/13/19 18:30 Sputum - Endotrachea Suction/Ventilator Gram Stain - Final 07/13/19 18:30 Sputum - Endotrachea Suction/Ventilator Sputum Culture - Final Yeast Like Organism 07/12/19 00:11 Blood - Peripheral Venous Blood Culture - Preliminary NO GROWTH OBTAINED AFTER 96 HOURS, INCUBATION TO CONTINUE FOR 1 DAYS. 07/12/19 00:30 Blood - Peripheral Venous Blood Culture - Preliminary NO GROWTH OBTAINED AFTER 96 HOURS, INCUBATION TO CONTINUE FOR 1 DAYS. 07/14/19 05:50 Urine For Antigen Detection Legionella Antigen - Final 07/14/19 05:50 Urine For Antigen Detection Streptococcus pneumoniae Antigen (M - Final 07/12/19 00:11 Urine - Urine - Catheterized Urine Culture - Final NO GROWTH OBTAINED ASSESSMENT AND PLAN: Patient is an 88 y/of with Pmhx of diastolic dysfunction , HTN, depression, chronic R subdural hematoma , h/o ETOH abuse, R carotid artery stenosis, with a recent admission for PNA , and UTI, during which she had NSVT, was admitted for acute AMS and with acute hypoximia , hypercapnic resp failure. #S/p ptx ; chest tube placed and lung expanded, continue chest tube on water seal , cardio thoracic is on the case. , further care per ICU # Acute hypoxic hypercapnic respiratory failure s/p intubation. due to due to PNA, Vent management per ICU team # Acute diastolic heart failure ( hyponatremia, elevated BNP, b/l pleural effusions, LE edema,) last echo reviewed. repeat echo # s/p Septic shock due to PNA: continue Abx , off levophed , monitor # Acute PNA: cefepime and vanco ; follow blood and urine cx , obtain flu swab , obtain Urine tox # HARJINDER: likely prerenal. improved , monitor cr. no need fro renal US # Acute Hyponatremia: could be due to acute heart failure VS poor po intake; urine electrolytes pending # Acute Transaminitis: could be due to sepsis, vs passive liver congestion from heart failure. tylenol level is low. # R pneumothorax s/p TLC per ED: resolved on repeat cxray , repeT CXR # ELEvated trop: EKG with new inverted TW in anterioseptal leads and L axis deviation which are new compared to EKG form last admission - can't r/o NSTEMi but demand ischemia from sepsis and hypoxia is possible DVT PX : add heparin SQ
[2019-07-15] MEDS ORDERED: DEXTROSE 5%-WATER 200 ML IVPB ONE (17:21)
[2019-07-15] MEDS: MIDAZOLAM 100 MG in SODIUM CHLORIDE 100 ML IVPB SCH (17:42)
[2019-07-15] MEDS: PROPOFOL 1,000,000 MCG/100 ML VIAL IVPB SCH (18:59)
[2019-07-15] MEDS: CHLORHEXIDINE GLUCONATE 4% CLEANSER FOR DECOLONIZATION TP SCH (21:28)
[2019-07-15] MEDS: METOPROLOL TARTRATE 25 MG TABLET (FP) PO SCH (21:28)
[2019-07-16] MEDS: CEFEPIME 1 GM in DEXTROSE 5%-WATER 100 ML IVPB SCH ×4 (02:00→22:00)
[2019-07-16] MEDS: FENTANYL INJECTION 500 MCG in DEXTROSE 5%-WATER - 90 ML IVPB SCH (02:03)
[2019-07-16] MEDS ORDERED: CEFEPIME HCL 1 GM VIAL (RESTRICTED TO ID) ONE ×3 (02:19→17:38)
[2019-07-16 06:56] LABS: HEMATOCRIT 30.8 % (32.4-45.2); HEMOGLOBIN 10.4 GM/dL (10.7-15.3); MCH 30.4 pg (25.7-33.7); MCHC 33.8 g/dl (32.0-36.0); MEAN CELL VOLUME 89.9 fl (80-96); MEAN PLT VOLUME 8.8 fl (7.5-11.1); PLATELET COUNT 263 K/MM3 (134-434); RBC 3.43 M/mm3 (3.60-5.2); RDW 13.9 % (11.6-15.6); WHITE BLOOD COUNT 8.5 K/mm3 (4.0-10.0)
[2019-07-16 07:09] LABS: ALBUMIN 2.1 g/dl (3.4-5.0); BILIRUBIN,TOTAL 0.6 mg/dL (0.2-1); BLOOD UREA NITROGEN 11.3 mg/dL (7-18); CREATININE 0.3 mg/dL (0.55-1.3); PHOSPHOROUS 2.8 mg/dL (2.5-4.9); POTASSIUM 3.6 mmol/L (3.5-5.1); TOT PROT 4.5 g/dl (6.4-8.2)
[2019-07-16] MEDS: MIDAZOLAM 100 MG in SODIUM CHLORIDE 100 ML IVPB SCH (07:18)
[2019-07-16] MEDS: HEPARIN NA (PORCINE) 5,000 UNITS/ML 1ML VIAL SQ SCH ×3 (07:21→22:37)
[2019-07-16] MEDS ORDERED: DEXTROSE 5%-WATER 100 ML IVPB ONE ×2 (09:12→17:38)
[2019-07-16] MEDS: PROPOFOL 1,000,000 MCG/100 ML VIAL IVPB SCH (09:15)
[2019-07-16] MEDS: METOPROLOL TARTRATE 25 MG TABLET (FP) PO SCH ×2 (09:16→22:38)
[2019-07-16] MEDS: MUPIROCIN 2% TOPICAL OINTMENT FOR DECOLONIZATION NS SCH ×2 (09:16→22:37)
--- NOTE | 2019-07-16 10:16 | PN ---
Progress Note, Physician History of Present Illness: Sedated on vent, remains off levophed gtt, right chest tube in place. - Current Medication List Current Medications: Active Medications Acetaminophen (Ofirmev Injection -) 1,000 mg IVPB Q6H PRN PRN Reason: FEVER Last Admin: 07/13/19 21:41 Dose: 1,000 mg Aspirin (Ecotrin -) 81 mg PO DAILY LISA Last Admin: 07/15/19 10:39 Dose: Not Given Chlorhexidine Gluconate (Hibiclens For Decolonization -) 1 applic TP HS LISA Last Admin: 07/15/19 21:28 Dose: Not Given Heparin Sodium (Porcine) (Heparin -) 5,000 unit SQ TID LISA Last Admin: 07/16/19 07:21 Dose: 5,000 unit Fentanyl 500 mcg/ Dextrose 100 mls @ 4 mls/hr IVPB TITR LISA Last Admin: 07/16/19 02:03 Dose: 25 mcg/hr, 5 mls/hr Propofol (Diprivan -) 1,000,000 mcg in 100 mls @ 2.82 mls/hr IVPB TITR LISA; Protocol Last Admin: 07/16/19 09:15 Dose: 15 mcg/kg/min, 4.23 mls/hr Cefepime HCl 1 gm/ Dextrose 100 mls @ 100 mls/hr IVPB Q8H-IV LISA; Protocol Last Admin: 07/16/19 09:14 Dose: 100 mls/hr Sodium Chloride (Normal Saline -) 1,000 mls @ 83 mls/hr IV ASDIR LISA Last Admin: 07/15/19 15:02 Dose: 83 mls/hr Midazolam HCl 100 mg/ Sodium (Chloride) 100 mls @ 1 mls/hr IVPB TITR LISA; Protocol Last Admin: 07/16/19 07:18 Dose: Not Given Metoprolol Tartrate (Lopressor -) 25 mg PO BID LISA Last Admin: 07/16/19 09:16 Dose: 25 mg Mupirocin (Bactroban Ointment (For Decolonization) -) 1 applic NS BID [facility] Stop: 07/17/19 09:59 Last Admin: 07/16/19 09:16 Dose: 1 applic - Objective Vital Signs: Vital Signs Temperature 98.5 F 07/16/19 06:00 Pulse Rate 65 07/16/19 08:00 Respiratory Rate 20 07/16/19 08:41 Blood Pressure 111/37 L 07/16/19 08:00 O2 Sat by Pulse Oximetry (%) 99 07/16/19 00:51 Constitutional: Yes: No Distress, Calm HENT: Yes: Other (NGT) Neck: Yes: Supple Cardiovascular: Yes: Regular Rate and Rhythm Respiratory: Yes: Intubated, Mechanically Ventilated, Rhonchi Gastrointestinal: Yes: Normal Bowel Sounds, Soft Edema: No Labs: CBC, BMP 07/16/19 06:00 07/16/19 06:00 INR, PTT INR 1.34 (0.83-1.09) H 07/12/19 06:00 - ....Imaging EKG: Report Reviewed (Tele: NSR) Problem List - Problems (1) Respiratory failure Code(s): J96.90 - RESPIRATORY FAILURE, UNSP, UNSP W HYPOXIA OR HYPERCAPNIA Qualifiers: Chronicity: acute Respiratory failure complication: hypoxia and hypercapnia Qualified Code(s): J96.01 - Acute respiratory failure with hypoxia ; J96.02 - Acute respiratory failure with hypercapnia (2) Diastolic dysfunction Code(s): I51.89 - OTHER ILL-DEFINED HEART DISEASES (3) Demand ischemia Code(s): I24.8 - OTHER FORMS OF ACUTE ISCHEMIC HEART DISEASE (4) Ischemic hepatitis Code(s): K75.9 - INFLAMMATORY LIVER DISEASE, UNSPECIFIED (5) Septic shock Code(s): A41.9 - SEPSIS, UNSPECIFIED ORGANISM; R65.21 - SEVERE SEPSIS WITH SEPTIC SHOCK (6) Iatrogenic pneumothorax Code(s): J95.811 - POSTPROCEDURAL PNEUMOTHORAX Assessment/Plan 07/12/2019 echo: Normal biventrucular size and fxn, mod MR, AR 1. Acute Hypoxic and Hypercapneic Respiratory Failure 2. Pneumonia 3. Post Septic Shock 4. Coronary artery disease with demand ischemic injury angina pectoris/elevated troponin I level related to sepsis syndrome 5. Diastolic left ventricular dysfunction with clinical class 0-I [place] Heart Association classification left ventricular failure/elevated B-type natriuretic peptide- most likely related to sepsis syndrome 6. Hypertensive cardiovascular disease, hypotension related to the above-noted sepsis syndrome 7. History of non-sustained ventricular tachycardia 8. Aortic valve regurgitation 9. Tricuspid valve regurgitation with moderate degree of pulmonary hypertension 10. History of carotid stenosis, moderate in severity 11. Iatrogenic pneumothorax post right chest tube insertion/complication of subclavian line insertion 12. Abnormal liver function testing trending down, likely shock liver 13. Hyponatremia resolved 14. Chronic Subdural Hematoma PLAN: 1. Antibiotics per C&S, remains off levophed gtt as MAP >65 2. Agree with ASA 81 qd, resumed metoprolol 25 bid, start JOHANNA inhibitor or angiotensin receptor tino therapy, hemodynamics permitting (now off of pressor therapy) 3. Ventilator management as per the critical care team, enteral feeds, daily sedation vacations to assess mental status, spontaneous breathing trials as tolerated 4. Chest tube management as per the critical care team 5. DVT/GI prophylaxis
--- NOTE | 2019-07-16 10:38 | PN ---
Teaching Attending Note Name of Resident: Zoila Espinosa ATTENDING PHYSICIAN STATEMENT I saw and evaluated the patient. I reviewed the resident's note and discussed the case with the resident. I agree with the resident's findings and plan as documented. SUBJECTIVE: Pt seen and examined in the ICU. Remains intubated, arousable off sedation. Follows some commands. Off pressors. OBJECTIVE: Vital Signs Period Temp Pulse Resp BP Sys/Da Silva Pulse Ox Last 24 Hr 98.5 F-99.6 F 56-88 18-28 98-165/32-59 99-99 Intake & Output 07/13/19 07/14/19 07/15/19 07/16/19 23:59 23:59 23:59 23:59 Intake Total 1119 1947.5 3624 1017 Output Total 3180 390 0 40 Balance -2061 1557.5 3624 977 Weight 52.163 kg 43.4 kg 49.924 kg 52.798 kg Gen: intubated, arousable Heart: RRR Lung: scattered rhonchi Abd: soft, nontender Ext: + edema Chest tube with serous fluid CBC, BMP 07/16/19 06:00 07/16/19 06:00 Active Medications Acetaminophen (Ofirmev Injection -) 1,000 mg IVPB Q6H PRN PRN Reason: FEVER Last Admin: 07/13/19 21:41 Dose: 1,000 mg Aspirin (Ecotrin -) 81 mg PO DAILY [facility] Last Admin: 07/15/19 10:39 Dose: Not Given Chlorhexidine Gluconate (Hibiclens For Decolonization -) 1 applic TP HS [facility] Last Admin: 07/15/19 21:28 Dose: Not Given Heparin Sodium (Porcine) (Heparin -) 5,000 unit SQ TID [facility] Last Admin: 07/16/19 07:21 Dose: 5,000 unit Fentanyl 500 mcg/ Dextrose 100 mls @ 4 mls/hr IVPB TITR [facility] Last Admin: 07/16/19 02:03 Dose: 25 mcg/hr, 5 mls/hr Propofol (Diprivan -) 1,000,000 mcg in 100 mls @ 2.82 mls/hr IVPB TITR [facility]; Protocol Last Admin: 07/16/19 09:15 Dose: 15 mcg/kg/min, 4.23 mls/hr Cefepime HCl 1 gm/ Dextrose 100 mls @ 100 mls/hr IVPB Q8H-IV LISA; Protocol Last Admin: 07/16/19 09:14 Dose: 100 mls/hr Sodium Chloride (Normal Saline -) 1,000 mls @ 83 mls/hr IV ASDIR [facility] Last Admin: 07/15/19 15:02 Dose: 83 mls/hr Midazolam HCl 100 mg/ Sodium (Chloride) 100 mls @ 1 mls/hr IVPB TITR LISA; Protocol Last Admin: 07/16/19 07:18 Dose: Not Given Metoprolol Tartrate (Lopressor -) 25 mg PO BID [facility] Last Admin: 07/16/19 09:16 Dose: 25 mg Mupirocin (Bactroban Ointment (For Decolonization) -) 1 applic NS BID [facility] Stop: 07/17/19 09:59 Last Admin: 07/16/19 09:16 Dose: 1 applic ASSESSMENT AND PLAN: Acute Hypoxic and Hypercapneic Respiratory Failure Pneumonia Septic Shock Acute Kidney Injury improving Lactic Acidosis resolved +Troponins likely Demand Ischemia Elevated LFTs likely Ischemic Injury Hyponatremia Right Pneumothorax s/p chest tube placement LV Diastolic Dysfunction Chronic Subdural Hematoma - continue antibiotics - d/c standing IVF - monitor urine output, creatinine - off pressors, maintain MAP >65 - daily sedation vacations to assess mental status - spontaneous breathing trials as tolerated - enteral feeds - DVT/GI prophylaxis - continue ICU monitoring critical care time spent in reviewing chart, evaluating patient and formulating plan 35 min
--- NOTE | 2019-07-16 11:45 | PN ---
Progress Note, Physician History of Present Illness: AWAKE ON VENTILATOR NO ACUTE DISTRESS AFEBRILE WBC IMPROVED WNL - Current Medication List Current Medications: Active Medications Acetaminophen (Ofirmev Injection -) 1,000 mg IVPB Q6H PRN PRN Reason: FEVER Last Admin: 07/13/19 21:41 Dose: 1,000 mg Aspirin (Ecotrin -) 81 mg PO DAILY LISA Last Admin: 07/15/19 10:39 Dose: Not Given Chlorhexidine Gluconate (Hibiclens For Decolonization -) 1 applic TP HS LISA Last Admin: 07/15/19 21:28 Dose: Not Given Heparin Sodium (Porcine) (Heparin -) 5,000 unit SQ TID LISA Last Admin: 07/16/19 07:21 Dose: 5,000 unit Fentanyl 500 mcg/ Dextrose 100 mls @ 4 mls/hr IVPB TITR [facility] Last Admin: 07/16/19 02:03 Dose: 25 mcg/hr, 5 mls/hr Propofol (Diprivan -) 1,000,000 mcg in 100 mls @ 2.82 mls/hr IVPB TITR [facility]; Protocol Last Admin: 07/16/19 09:15 Dose: 15 mcg/kg/min, 4.23 mls/hr Cefepime HCl 1 gm/ Dextrose 100 mls @ 100 mls/hr IVPB Q8H-IV LISA; Protocol Last Admin: 07/16/19 09:14 Dose: 100 mls/hr Midazolam HCl 100 mg/ Sodium (Chloride) 100 mls @ 1 mls/hr IVPB TITR LISA; Protocol Last Admin: 07/16/19 07:18 Dose: Not Given Metoprolol Tartrate (Lopressor -) 25 mg PO BID LISA Last Admin: 07/16/19 09:16 Dose: 25 mg Mupirocin (Bactroban Ointment (For Decolonization) -) 1 applic NS BID [facility] Stop: 07/17/19 09:59 Last Admin: 07/16/19 09:16 Dose: 1 applic - Objective Vital Signs: Vital Signs Temperature 98.5 F 07/16/19 06:00 Pulse Rate 65 07/16/19 08:00 Respiratory Rate 20 07/16/19 08:41 Blood Pressure 111/37 L 07/16/19 08:00 O2 Sat by Pulse Oximetry (%) 99 07/16/19 00:51 Constitutional: Yes: No Distress Cardiovascular: Yes: Regular Rate and Rhythm, S1, S2 Respiratory: Yes: Mechanically Ventilated Gastrointestinal: Yes: Normal Bowel Sounds, Soft. No: Tenderness Labs: CBC, BMP 07/16/19 06:00 07/16/19 06:00 INR, PTT INR 1.34 (0.83-1.09) H 07/12/19 06:00 Assessment/Plan RESPIRATORY FAILURE PNEUMONIA SEPSIS LACTIC ACIDOSIS RESOLVED PNEUMOTHORAX CONTINUE CEFEPIME WEAN TOLERATED
[2019-07-16] MEDS: ASPIRIN 81 MG CHEWABLE TABLETS GT SCH (14:20)
[2019-07-16] MEDS ORDERED: FUROSEMIDE 40 MG/4 ML INJECTABLE VIAL IVPUSH ONE (15:01)
--- NOTE | 2019-07-16 15:03 | PN ---
Physical Exam: SUBJECTIVE: Patient extubated today. NGT removed. Tachypnic, placing on BIPAP. OBJECTIVE: Vital Signs Period Temp Pulse Resp BP Sys/Da Silva Pulse Ox Last 24 Hr 98.3 F-99.1 F 56-99 18-28 95-165/32-59 99-99 GENERAL: Lying in bed NAD HEENT: NCAT PERRLA LUNGS: B/l rhonchi HEART: RRR S1S2 heard no murmurs. ABDOMEN: Soft NTND. + BS EXTREMITIES: 2+ pulses, warm, well-perfused. RUE nonpitting edema, improving. R arm hematoma Laboratory Results - last 24 hr 07/15/19 07/16/19 07/16/19 17:46 01:44 05:44 WBC RBC Hgb Hct MCV MCH MCHC RDW Plt Count MPV Sodium Potassium Chloride Carbon Dioxide Anion Gap BUN Creatinine Est GFR (CKD-EPI)AfAm Est GFR (CKD-EPI)NonAf POC Glucometer 122 115 108 Random Glucose Calcium Phosphorus Magnesium Total Bilirubin AST ALT Alkaline Phosphatase Total Protein Albumin 07/16/19 07/16/19 06:00 06:00 WBC 8.5 RBC 3.43 L Hgb 10.4 L Hct 30.8 L MCV 89.9 MCH 30.4 MCHC 33.8 RDW 13.9 Plt Count 263 MPV 8.8 Sodium 140 Potassium 3.6 Chloride 108 H Carbon Dioxide 25 Anion Gap 7 L BUN 11.3 Creatinine 0.3 L Est GFR (CKD-EPI)AfAm 120.16 Est GFR (CKD-EPI)NonAf 103.67 POC Glucometer Random Glucose 110 H Calcium 8.0 L Phosphorus 2.8 Magnesium 2.0 Total Bilirubin 0.6 AST 53 H ALT 201 H Alkaline Phosphatase 67 Total Protein 4.5 L Albumin 2.1 L Active Medications Generic Name Dose Route Start Last Admin Trade Name Freq PRN Reason Stop Dose Admin Acetaminophen 1,000 mg 07/13/19 21:33 07/13/19 21:41 Ofirmev Injection - IVPB 1,000 mg Q6H PRN Administration FEVER Aspirin 81 mg 07/16/19 14:00 07/16/19 14:20 Asa - GT 81 mg DAILY LISA Administration Chlorhexidine Gluconate 1 applic 07/12/19 22:00 07/15/19 21:28 Hibiclens For Decolonization - TP Not Given HS LISA Heparin Sodium (Porcine) 5,000 unit 07/12/19 14:00 07/16/19 14:20 Heparin - SQ 5,000 unit TID LISA Administration Fentanyl 500 mcg/ Dextrose 100 mls @ 4 mls/hr 07/12/19 00:15 07/16/19 02:03 IVPB 25 mcg/hr TITR LISA 5 mls/hr Administration 20 MCG/HR Propofol 1,000,000 mcg in 100 mls @ 2.82 mls/hr 07/12/19 06:30 07/16/19 09:15 Diprivan - IVPB 15 mcg/kg/min TITR LISA 4.23 mls/hr Administration Protocol 10 MCG/KG/MIN Cefepime HCl 1 gm/ Dextrose 100 mls @ 100 mls/hr 07/12/19 18:00 07/16/19 09: 14 IVPB 100 mls/hr Q8H-IV LISA Administration Protocol Midazolam HCl 100 mg/ Sodium 100 mls @ 1 mls/hr 07/14/19 03:45 07/16/19 07:18 Chloride IVPB Not Given TITR LISA Protocol 1 MG/HR Metoprolol Tartrate 25 mg 07/15/19 22:00 07/16/19 09:16 Lopressor - PO 25 mg BID LISA Administration Mupirocin 1 applic 07/12/19 10:00 07/16/19 09:16 Bactroban Ointment (For Decolonization) - NS 07/17/19 09:59 1 applic BID LISA Administration ASSESSMENT/PLAN: 88 y.o. F PMH HTN, recurring falls, depression, diastolic HFpEF, aortic stenosis , CCA stenosis, alcohol abuse, recently d/c'd 07/10/19 2/2 PNA, presenting with acute hypoxic hypercarbic respiratory failure 2/2 PNA. #Neuro -Off sedation #CV -Off pressors -Echo 07/07/19: EF 55-60%, mild MR, pulm HTN, & AR -EKG NSR no ST changes -Trops downtrended -Cardio Dr. Goddard/ Dr. Beck following-- continue daily aspirin, resume metoprolol 25mg bid, start skyler/arb once permitting #Pulm -Extubated; f/u surgery for chest tube removal -On Bipap -Tachypnic monitor vitals; O2 supplementation as needed -CXR today: unchanged -Giving lasix 40mg IV; monitor outputs -Aspiration precautions -oral care/ prn #Renal -HARJINDER, resolved -monitor Cr #GI -Transaminitis improving -follow lfts #Heme/Onc -Leukocytosis 2/2 PNA resolved -Blood cx's neg # -Mills in place; f/u output #ID -C/w abx cefepime -legionella ag negative -ID following #PPX -Heparin SQ #FEN -Fluids d/c'd -sodium normalized; trend lytes -Started on tube feeds, osmolite Visit type - Emergency Visit Emergency Visit: No - New Patient This patient is new to me today: No - Critical Care Critical Care patient: Yes Total Critical Care Time (in minutes): 36 Critical Care Statement: The care of this patient involved high complexity decision making to prevent further life threatening deterioration of the patient 's condition and/or to evaluate & treat vital organ system(s) failure or risk of failure. ATTENDING PHYSICIAN STATEMENT I saw and evaluated the patient. I reviewed the resident's note and discussed the case with the resident. I agree with the resident's findings and plan as documented. SUBJECTIVE: OBJECTIVE: ASSESSMENT AND PLAN:
[2019-07-16] MEDS ORDERED: LORazepam 2 MG/ML SDV VIAL IVPUSH PRN (18:08)
[2019-07-16] MEDS: ASPIRIN COATED 81 MG TABLET.EC PO SCH (18:36)
--- NOTE | 2019-07-16 20:06 | PN ---
Progress Note (short form) - Note Progress Note: Patient continues to be intubated and sedated. more awake on the vent, answers by noding her head, Vital Signs Temperature 97.8 F 07/16/19 18:00 Pulse Rate 102 H 07/16/19 18:00 Respiratory Rate 26 H 07/16/19 18:00 Blood Pressure 144/41 L 07/16/19 18:00 O2 Sat by Pulse Oximetry (%) 99 07/16/19 16:41 GENERAL: The patient is Intubated, awake HEAD: Normal with no signs of trauma. EYES:round small pupils, reactive to light ENT: Ears normal, oropharynx clear without exudates, moist mucous membranes. NECK: Trachea midline, full range of motion, supple. LUNGS: intubated on the vent with chest tube on water seal HEART: RRR, 2/6 SM at apex which is heard louder in L axilla. 3/6 SM heard in back. No JVD ABDOMEN: Soft, soft, hypoactive BS. no grimacing with palpation EXTREMITIES: 2+ pulses, warm, well-perfused,2+ pitting edemas NEUROLOGICAL: Cranial nerves II through XII grossly intact. gait not observed. PSYCH: unable to access since intabated , but seems better, answers by opening and closing the eyes SKIN: Warm, dry, normal turgor, no rashes or lesions noted CBCD WBC 8.5 K/mm3 (4.0-10.0) 07/16/19 06:00 RBC 3.43 M/mm3 (3.60-5.2) L 07/16/19 06:00 Hgb 10.4 GM/dL (10.7-15.3) L 07/16/19 06:00 Hct 30.8 % (32.4-45.2) L 07/16/19 06:00 MCV 89.9 fl (80-96) 07/16/19 06:00 MCHC 33.8 g/dl (32.0-36.0) 07/16/19 06:00 RDW 13.9 % (11.6-15.6) 07/16/19 06:00 Plt Count 263 K/MM3 (134-434) 07/16/19 06:00 MPV 8.8 fl (7.5-11.1) 07/16/19 06:00 CMP Sodium 140 mmol/L (136-145) 07/16/19 06:00 Potassium 3.6 mmol/L (3.5-5.1) 07/16/19 06:00 Chloride 108 mmol/L (98-107) H 07/16/19 06:00 Carbon Dioxide 25 mmol/L (21-32) 07/16/19 06:00 Anion Gap 7 MMOL/L (8-16) L 07/16/19 06:00 BUN 11.3 mg/dL (7-18) 07/16/19 06:00 Creatinine 0.3 mg/dL (0.55-1.3) L 07/16/19 06:00 Random Glucose 110 mg/dL (74-106) H 07/16/19 06:00 Calcium 8.0 mg/dL (8.5-10.1) L 07/16/19 06:00 Total Bilirubin 0.6 mg/dL (0.2-1) 07/16/19 06:00 AST 53 U/L (15-37) H 07/16/19 06:00 ALT 201 U/L (13-61) H 07/16/19 06:00 Alkaline Phosphatase 67 U/L (45-117) 07/16/19 06:00 Total Protein 4.5 g/dl (6.4-8.2) L 07/16/19 06:00 Albumin 2.1 g/dl (3.4-5.0) L 07/16/19 06:00 CARDIAC ENZYMES Creatine Kinase 100 U/L (26-192) 07/13/19 05:45 Troponin I 0.36 ng/ml (0.00-0.05) H 07/13/19 05:45 Home Medications Medication Instructions Recorded LORazepam [Lorazepam] 0.5 mg PO TID 07/07/19 Sertraline HCl 50 mg PO DAILY 07/07/19 traZODone HCL [Trazodone HCl] 50 mg PO DAILY 07/07/19 Acetaminophen [Tylenol 1,000 mg PO Q6H PRN #0 tablet 07/08/19 .Extra-Strength -] Calcium 500Mg/Vit-D 200 Units 1 tab PO BID 30 Days #60 tab 07/08/19 [Os-Silvio 500+D -] Metoprolol Succinate [Toprol XL -] 25 mg PO DAILY 30 Days #30 07/08/19 tab.sr.24h Amox-Tr/K Cl [Augmentin - 875Mg 1 tab PO BID #14 tablet 07/09/19 Tablet] Current Medications Generic Name Dose Route Start Last Admin Trade Name Freq PRN Reason Stop Dose Admin Acetaminophen 1,000 mg 07/13/19 21:33 07/13/19 21:41 Ofirmev Injection - IVPB 1,000 mg Q6H PRN Administration FEVER Aspirin 81 mg 07/16/19 14:00 07/16/19 14:20 Asa - GT 81 mg DAILY LISA Administration Chlorhexidine Gluconate 1 applic 07/12/19 22:00 07/15/19 21:28 Hibiclens For Decolonization - TP Not Given HS LISA Heparin Sodium (Porcine) 5,000 unit 07/12/19 14:00 07/16/19 14:20 Heparin - SQ 5,000 unit TID LISA Administration Fentanyl 500 mcg/ Dextrose 100 mls @ 4 mls/hr 07/12/19 00:15 07/16/19 02:03 IVPB 25 mcg/hr TITR LISA 5 mls/hr Administration 20 MCG/HR Propofol 1,000,000 mcg in 100 mls @ 2.82 mls/hr 07/12/19 06:30 07/16/19 09:15 Diprivan - IVPB 15 mcg/kg/min TITR LISA 4.23 mls/hr Administration Protocol 10 MCG/KG/MIN Cefepime HCl 1 gm/ Dextrose 100 mls @ 100 mls/hr 07/12/19 18:00 07/16/19 17: 45 IVPB 100 mls/hr Q8H-IV LISA Administration Protocol Midazolam HCl 100 mg/ Sodium 100 mls @ 1 mls/hr 07/14/19 03:45 07/16/19 07:18 Chloride IVPB Not Given TITR LISA Protocol 1 MG/HR Lorazepam 1 mg 07/16/19 18:08 Ativan Injection - IVPUSH Q6H PRN WITHDRAWAL(CONT SUBST) Metoprolol Tartrate 25 mg 07/15/19 22:00 07/16/19 09:16 Lopressor - PO 25 mg BID LISA Administration Mupirocin 1 applic 07/12/19 10:00 07/16/19 09:16 Bactroban Ointment (For Decolonization) - NS 07/17/19 09:59 1 applic BID LISA Administration Microbiology 07/13/19 18:30 Sputum - Endotrachea Suction/Ventilator Gram Stain - Final 07/13/19 18:30 Sputum - Endotrachea Suction/Ventilator Sputum Culture - Final Yeast Like Organism 07/12/19 00:11 Blood - Peripheral Venous Blood Culture - Preliminary NO GROWTH OBTAINED AFTER 96 HOURS, INCUBATION TO CONTINUE FOR 1 DAYS. 07/12/19 00:30 Blood - Peripheral Venous Blood Culture - Preliminary NO GROWTH OBTAINED AFTER 96 HOURS, INCUBATION TO CONTINUE FOR 1 DAYS. 07/14/19 05:50 Urine For Antigen Detection Legionella Antigen - Final 07/14/19 05:50 Urine For Antigen Detection Streptococcus pneumoniae Antigen (M - Final 07/12/19 00:11 Urine - Urine - Catheterized Urine Culture - Final NO GROWTH OBTAINED ASSESSMENT AND PLAN: Patient is an 88 y/of with Pmhx of diastolic dysfunction , HTN, depression, chronic R subdural hematoma , h/o ETOH abuse, R carotid artery stenosis, with a recent admission for PNA , and UTI, during which she had NSVT, was admitted for acute AMS and with acute hypoximia , hypercapnic resp failure. #S/p ptx ; chest tube placed and lung expanded, continue chest tube on water seal , cardio thoracic is on the case. , further care per ICU # Acute hypoxic hypercapnic respiratory failure s/p intubation. due to due to PNA, Vent management per ICU team # Acute diastolic heart failure ( hyponatremia, elevated BNP, b/l pleural effusions, LE edema,) last echo reviewed. repeat echo # s/p Septic shock due to PNA: continue Abx , off levophed , monitor ,ID onthe case, continue IV antibiotics # Acute PNA: cefepime and vanco ; follow blood and urine cx , obtain flu swab , obtain Urine tox # HARJINDER: likely prerenal. improved , monitor cr. no need fro renal US # Acute Hyponatremia: could be due to acute heart failure VS poor po intake; urine electrolytes pending # Acute Transaminitis: could be due to sepsis, vs passive liver congestion from heart failure. tylenol level is low. # R pneumothorax s/p TLC per ED: resolved on repeat cxray , repeT CXR # ELEvated trop: EKG with new inverted TW in anterioseptal leads and L axis deviation which are new compared to EKG form last admission - can't r/o NSTEMi but demand ischemia from sepsis and hypoxia is possible DVT PX : add heparin SQ Visit type - Emergency Visit Emergency Visit: Yes ED Registration Date: 07/11/19 Care time: The patient presented to the Emergency Department on the above date and was hospitalized for further evaluation of their emergent condition. - New Patient This patient is new to me today: No - Critical Care Critical Care patient: No - Discharge Referral Referred to [facility] Med P.C.: No
[2019-07-16] MEDS: CHLORHEXIDINE GLUCONATE 4% CLEANSER FOR DECOLONIZATION TP SCH (22:38)
[2019-07-17] MEDS ORDERED: CEFEPIME HCL 1 GM VIAL (RESTRICTED TO ID) ONE ×4 (00:50→20:45)
[2019-07-17] MEDS ORDERED: DEXTROSE 5%-WATER 100 ML IVPB ONE ×4 (00:50→20:45)
[2019-07-17 07:39] LABS: HEMOGLOBIN 11.7 GM/dL (10.7-15.3); MCH 29.8 pg (25.7-33.7); MCHC 32.6 g/dl (32.0-36.0); MEAN CELL VOLUME 91.2 fl (80-96); MEAN PLT VOLUME 8.7 fl (7.5-11.1); PLATELET COUNT 279 K/MM3 (134-434); RBC 3.94 M/mm3 (3.60-5.2); RDW 13.9 % (11.6-15.6); WHITE BLOOD COUNT 13.1 K/mm3 (4.0-10.0)
[2019-07-17 07:49] LABS: BLOOD UREA NITROGEN 11.6 mg/dL (7-18); CALCIUM 8.7 mg/dL (8.5-10.1); CREATININE 0.3 mg/dL (0.55-1.3); MAGNESIUM 2.1 mg/dL (1.8-2.4); PHOSPHOROUS 3.9 mg/dL (2.5-4.9); POTASSIUM 4.1 mmol/L (3.5-5.1)
[2019-07-17] MEDS: FENTANYL INJECTION 500 MCG in DEXTROSE 5%-WATER - 90 ML IVPB SCH (07:54)
[2019-07-17] MEDS: HEPARIN NA (PORCINE) 5,000 UNITS/ML 1ML VIAL SQ SCH ×3 (07:59→21:17)
[2019-07-17] MEDS: MIDAZOLAM 100 MG in SODIUM CHLORIDE 100 ML IVPB SCH (08:03)
--- NOTE | 2019-07-17 08:10 | PN ---
Physical Exam: SUBJECTIVE: Patient seen and examined at bedside. Patient extubated to NIPPV . No new complaints, no events overnight. Patient denies chest pain. Chest tube to water seal without air leak. OBJECTIVE: Vital Signs Period Temp Pulse Resp BP Sys/Da Silva Pulse Ox Last 24 Hr 97.8 F-98.3 F 66-102 20-76 95-152/32-54 99-100 GENERAL: The patient is asleep, but easily rousable to voice. HEAD: Normal with no signs of trauma. NECK: Trachea midline, full range of motion, supple. LUNGS: On NIPPV, Breath sounds equal, clear to auscultation bilaterally, no wheezes, no crackles, no accessory muscle use. HEART: Regular rate and rhythm, S1, S2 without murmur, rub or gallop. ABDOMEN: Soft, nontender, nondistended, normoactive bowel sounds, no guarding, no rebound, no hepatosplenomegaly, no masses. EXTREMITIES: 2+ pulses, warm, well-perfused, no edema. NEUROLOGICAL: Cranial nerves II through XII grossly intact. gait not observed. Laboratory Results - last 24 hr 07/16/19 07/16/19 07/16/19 06:00 18:23 23:59 WBC 8.5 RBC 3.43 L Hgb 10.4 L Hct 30.8 L MCV 89.9 MCH 30.4 MCHC 33.8 RDW 13.9 Plt Count 263 MPV 8.8 Sodium Potassium Chloride Carbon Dioxide Anion Gap BUN Creatinine Est GFR (CKD-EPI)AfAm Est GFR (CKD-EPI)NonAf POC Glucometer 114 104 Random Glucose Calcium Phosphorus Magnesium 07/17/19 07/17/19 07/17/19 06:00 06:00 07:26 WBC 13.1 H RBC 3.94 Hgb 11.7 Hct 36.0 D MCV 91.2 MCH 29.8 MCHC 32.6 RDW 13.9 Plt Count 279 MPV 8.7 Sodium 146 H Potassium 4.1 Chloride 112 H Carbon Dioxide 31 Anion Gap 4 L BUN 11.6 Creatinine 0.3 L Est GFR (CKD-EPI)AfAm 120.16 Est GFR (CKD-EPI)NonAf 103.67 POC Glucometer 93 Random Glucose 88 Calcium 8.7 Phosphorus 3.9 Magnesium 2.1 Active Medications Generic Name Dose Route Start Last Admin Trade Name Freq PRN Reason Stop Dose Admin Acetaminophen 1,000 mg 07/13/19 21:33 07/13/19 21:41 Ofirmev Injection - IVPB 1,000 mg Q6H PRN Administration FEVER Aspirin 81 mg 07/16/19 14:00 07/16/19 14:20 Asa - GT 81 mg DAILY LISA Administration Chlorhexidine Gluconate 1 applic 07/12/19 22:00 07/16/19 22:38 Hibiclens For Decolonization - TP 1 applic HS LISA Administration Heparin Sodium (Porcine) 5,000 unit 07/12/19 14:00 07/17/19 07:59 Heparin - SQ 5,000 unit TID LISA Administration Fentanyl 500 mcg/ Dextrose 100 mls @ 4 mls/hr 07/12/19 00:15 07/17/19 07:54 IVPB Not Given TITR LISA 20 MCG/HR Propofol 1,000,000 mcg in 100 mls @ 2.82 mls/hr 07/12/19 06:30 07/16/19 09:15 Diprivan - IVPB 15 mcg/kg/min TITR LISA 4.23 mls/hr Administration Protocol 10 MCG/KG/MIN Cefepime HCl 1 gm/ Dextrose 100 mls @ 100 mls/hr 07/12/19 18:00 07/16/19 22: 00 IVPB 100 mls/hr Q8H-IV LISA Administration Protocol Midazolam HCl 100 mg/ Sodium 100 mls @ 1 mls/hr 07/14/19 03:45 07/17/19 08:03 Chloride IVPB Not Given TITR LISA Protocol 1 MG/HR Lorazepam 1 mg 07/16/19 18:08 Ativan Injection - IVPUSH Q6H PRN WITHDRAWAL(CONT SUBST) Metoprolol Tartrate 25 mg 07/15/19 22:00 07/16/19 22:38 Lopressor - PO 25 mg BID LISA Administration Mupirocin 1 applic 07/12/19 10:00 07/16/19 22:37 Bactroban Ointment (For Decolonization) - NS 07/17/19 09:59 1 applic BID LISA Administration ASSESSMENT/PLAN: 88 y/o female PMH HTN, HFpEF, depression, chronic RIGHT subdural hematoma, ETOH abuse, RIGHT carotid artery stenosis, and recent admission for PNA and UTI. Pt admitted for acute hypoxic respiratory failure # Acute hypoxic, hypercapnic respiratory failure: Physiologic changes of sepsis vs PNA vs exacerbation of HF -s/p extubation 07/16 -BP stable off pressors. -on cefepime 1 g IV q8h and vancomycin 1 g IV qd; will continue per ID -urine PNA antigens negative -sputum cx growing yeast; likey contaminant # Sepsis with septic shock: Likely due to PNA -Now off ff Levo -Dc vancomycin -Continue Cefepime 1 gm IV q8h # HTN -metoprolol 25 bid resumed -holding antihypertensives while patient normotensive. # HARJINDER -Improving -Avoid aggressive hydration # Transaminitis: hypotension vs sepsis vs liver congestion 2/2 heart failure -improving daily -US of liver: fatty liver VS hepatocellular disease. 8x9 possible cyst in pancreatic head. Recommend MRI. -Acetaminophen level 5.2, WNL # RIGHT pneumothorax -resolved s/p chest tube insertion -monitor daily CXRs # Troponemia - 0.88 -> 0.93 -> 0.36 - Likely 2/2 sepsis (demand ischemia, hypoxia) - EKG with new inverted TWI anterioseptal leads and L axis deviation which are new compared to EKG form last admission (possible NSTEMI) - Cardiology concurs, likely 2/2 demand in setting of sepsis # Hyponatremia- resolved -HF vs poor po intake -monitor for recurrence # Leukocytosis, resolved # Hypophosphatemia, resolved -Repleted with K phos 30 mg IV on Jul 14 # F/E/N -NS @ 83mL/hr -monitor lytes -NPO for now, will feed once respiration stabilized # DVT prophylaxis -Heparin SQ # Disposition -Full code -ICU monitoring Visit type - Emergency Visit Emergency Visit: Yes ED Registration Date: 07/11/19 Care time: The patient presented to the Emergency Department on the above date and was hospitalized for further evaluation of their emergent condition. - New Patient This patient is new to me today: Yes Date on this admission: 07/17/19 - Critical Care Critical Care patient: Yes Total Critical Care Time (in minutes): 45 Critical Care Statement: The care of this patient involved high complexity decision making to prevent further life threatening deterioration of the patient 's condition and/or to evaluate & treat vital organ system(s) failure or risk of failure. ATTENDING PHYSICIAN STATEMENT I saw and evaluated the patient. I reviewed the resident's note and discussed the case with the resident. I agree with the resident's findings and plan as documented. SUBJECTIVE: OBJECTIVE: ASSESSMENT AND PLAN:
--- NOTE | 2019-07-17 08:14 | PN ---
Physical Exam: SUBJECTIVE: Patient seen and examined. Extubated to Bilevel- on Fi02 100 this am. Pt reported no pain. Still with chest tube, drained 100 overnight, now clamped. Received dose of lasix yesterday. OBJECTIVE: Vital Signs Period Temp Pulse Resp BP Sys/Da Silva Pulse Ox Last 24 Hr 97.8 F-98.3 F 66-102 20-76 95-152/32-54 99-100 Vital Signs Temp 97.8 F 07/16/19 18:00 Pulse 72 07/17/19 08:00 Resp 18 07/17/19 08:00 BP 135/38 L 07/17/19 08:00 Pulse Ox 100 07/17/19 09:00 Intake & Output 07/16/19 07/16/19 07/17/19 11:59 23:59 11:59 Intake Total 1017 966 Output Total 40 150 Balance 977 816 Weight 52.798 kg 50.258 kg Intake: IV 627 466 DIPRIVAN - 1,000,000 mcg 32 24 In 100 ml @ 10 MCG/KG/MIN 2.82 mls/hr IVPB TITR LISA Rx#:[id number] Normal Saline - 1,000 ml 560 412 @ 83 mls/hr IV ASDIR LISA Rx#:[id number] Sublimaze Injection - 500 35 30 Mcg In D5w - 90 ml @ 20 MCG/HR 4 mls/hr IVPB TITR LISA Rx#:[id number] IVPB 200 Oral 0 Tube Feeding 320 240 Tube Irrigant 70 60 Output: Chest Tube Drainage 40 150 Right 40 150 Other: Voiding Method Diaper Diaper Diaper # Unmeasured Voids Void 1 2 2 Bowel Movement No No Body Mass Index (BMI) 22.6 Weight Measurement Method Built in [facility] GENERAL: The patient is awake, on Bipap, initially 100%, titrated to 70%. EYES: PERRL, extraocular movements intact, sclera anicteric, conjunctiva clear. ENT: Bipap LUNGS: Few rhonchi HEART: Regular rate and rhythm, S1, S2 ABDOMEN: Soft, nontender, nondistended, normoactive bowel sounds, no guarding EXTREMITIES: 2+ pulses, warm, well-perfused, no edema. NEUROLOGICAL: Cranial nerves II through XII grossly intact. Normal speech, gait not observed. CBC, BMP 07/17/19 06:00 07/17/19 06:00 Laboratory Results - last 24 hr 07/16/19 07/16/19 07/17/19 18:23 23:59 06:00 WBC 13.1 H RBC 3.94 Hgb 11.7 Hct 36.0 D MCV 91.2 MCH 29.8 MCHC 32.6 RDW 13.9 Plt Count 279 MPV 8.7 Sodium Potassium Chloride Carbon Dioxide Anion Gap BUN Creatinine Est GFR (CKD-EPI)AfAm Est GFR (CKD-EPI)NonAf POC Glucometer 114 104 Random Glucose Calcium Phosphorus Magnesium 07/17/19 07/17/19 06:00 07:26 WBC RBC Hgb Hct MCV MCH MCHC RDW Plt Count MPV Sodium 146 H Potassium 4.1 Chloride 112 H Carbon Dioxide 31 Anion Gap 4 L BUN 11.6 Creatinine 0.3 L Est GFR (CKD-EPI)AfAm 120.16 Est GFR (CKD-EPI)NonAf 103.67 POC Glucometer 93 Random Glucose 88 Calcium 8.7 Phosphorus 3.9 Magnesium 2.1 Active Medications Generic Name Dose Route Start Last Admin Trade Name Speedyq PRN Reason Stop Dose Admin Acetaminophen 1,000 mg 07/13/19 21:33 07/13/19 21:41 Ofirmev Injection - IVPB 1,000 mg Q6H PRN Administration FEVER Aspirin 81 mg 07/16/19 14:00 07/16/19 14:20 Asa - GT 81 mg DAILY LISA Administration Chlorhexidine Gluconate 1 applic 07/12/19 22:00 07/16/19 22:38 Hibiclens For Decolonization - TP 1 applic HS LISA Administration Heparin Sodium (Porcine) 5,000 unit 07/12/19 14:00 07/17/19 07:59 Heparin - SQ 5,000 unit TID LISA Administration Fentanyl 500 mcg/ Dextrose 100 mls @ 4 mls/hr 07/12/19 00:15 07/17/19 07:54 IVPB Not Given TITR LISA 20 MCG/HR Propofol 1,000,000 mcg in 100 mls @ 2.82 mls/hr 07/12/19 06:30 07/16/19 09:15 Diprivan - IVPB 15 mcg/kg/min TITR LISA 4.23 mls/hr Administration Protocol 10 MCG/KG/MIN Cefepime HCl 1 gm/ Dextrose 100 mls @ 100 mls/hr 07/12/19 18:00 07/16/19 22: 00 IVPB 100 mls/hr Q8H-IV LISA Administration Protocol Midazolam HCl 100 mg/ Sodium 100 mls @ 1 mls/hr 07/14/19 03:45 07/17/19 08:03 Chloride IVPB Not Given TITR LISA Protocol 1 MG/HR Lorazepam 1 mg 07/16/19 18:08 Ativan Injection - IVPUSH Q6H PRN WITHDRAWAL(CONT SUBST) Metoprolol Tartrate 25 mg 07/15/19 22:00 07/16/19 22:38 Lopressor - PO 25 mg BID LISA Administration Mupirocin 1 applic 07/12/19 10:00 07/16/19 22:37 Bactroban Ointment (For Decolonization) - NS 07/17/19 09:59 1 applic BID LISA Administration Ambulatory Orders LORazepam [Lorazepam] 0.5 mg PO TID 07/07/19 Sertraline HCl 50 mg PO DAILY 07/07/19 traZODone HCL [Trazodone HCl] 50 mg PO DAILY 07/07/19 Acetaminophen [Tylenol .Extra-Strength -] 1,000 mg PO Q6H PRN #0 tablet Calcium 500Mg/Vit-D 200 Units [Os-Silvio 500+D -] 1 tab PO BID 30 Days #60 tab Metoprolol Succinate [Toprol XL -] 25 mg PO DAILY 30 Days #30 tab.sr.24h Amox-Tr/K Cl [Augmentin - 875Mg Tablet] 1 tab PO BID #14 tablet 07/09/19 ASSESSMENT/PLAN: 88 y.o. F PMH HTN, recurring falls, depression, diastolic HFpEF, aortic stenosis , CCA stenosis, alcohol abuse, recently d/c'd 07/10/19 2/2 PNA, presenting with acute hypoxic hypercarbic respiratory failure 2/2 PNA requiring intubation, now s/p extubation (07/16). #Neuro -Off sedation, on bipap -Responding with head nods #CV -Off pressors -Echo 07/07/19: EF 55-60%, mild MR, pulm HTN, & AR -EKG NSR no ST changes -Trops peaked -BNP elevated possibly in setting of sepsis initially -Cardio Dr. Goddard/ Dr. Beck following-- continue daily aspirin, resume metoprolol 25mg bid, start skyler/arb once permitting #Pulm -Pt presented with acute hypercapneic hypoxic resp failure secondary to PNA -Extubated 07/16; chest tube clamped -On Bipap- 07/01/ / 50% -pending cxr -lasix 40mg IV once, monitor BP, -Aspiration precautions -oral care/ prn #Renal -HARJINDER, resolved -monitor Cr -Hypernatremia, hyperchloremia, will monitor off fluids #GI -Transaminitis improving -follow lfts #Heme/Onc -Leukocytosis 08/28 PNA resolved -Blood cx's neg # -Mills in place; f/u output #ID -L base pleural infiltrate and effusion on presentation -C/w abx cefepime (07/12) -legionella ag negative -ID following #PPX -Heparin SQ Visit type - Emergency Visit Emergency Visit: Yes ED Registration Date: 07/11/19 Care time: The patient presented to the Emergency Department on the above date and was hospitalized for further evaluation of their emergent condition. - New Patient This patient is new to me today: No - Critical Care Critical Care patient: Yes Total Critical Care Time (in minutes): 35 Critical Care Statement: The care of this patient involved high complexity decision making to prevent further life threatening deterioration of the patient 's condition and/or to evaluate & treat vital organ system(s) failure or risk of failure. - Discharge Referral Referred to [facility] No ATTENDING PHYSICIAN STATEMENT I saw and evaluated the patient. I reviewed the resident's note and discussed the case with the resident. I agree with the resident's findings and plan as documented. SUBJECTIVE: OBJECTIVE: ASSESSMENT AND PLAN:
[2019-07-17] MEDS: CEFEPIME 1 GM in DEXTROSE 5%-WATER 100 ML IVPB SCH ×2 (10:06→17:08)
[2019-07-17] MEDS: ASPIRIN 81 MG CHEWABLE TABLETS GT SCH (10:06)
[2019-07-17] MEDS: METOPROLOL TARTRATE 25 MG TABLET (FP) PO SCH ×3 (10:06→21:18)
--- NOTE | 2019-07-17 10:47 | PN ---
Teaching Attending Note Name of Resident: Yumi Borrego ATTENDING PHYSICIAN STATEMENT I saw and evaluated the patient. I reviewed the resident's note and discussed the case with the resident. I agree with the resident's findings and plan as documented. SUBJECTIVE: Pt seen and examined in the ICU. Remains on BiPAP with 70% FiO2. OBJECTIVE: Vital Signs Period Temp Pulse Resp BP Sys/Da Silva Pulse Ox Last 24 Hr 97.8 F-98.0 F 72-102 18-76 135-152/38-54 99-100 Intake & Output 07/14/19 07/15/19 07/16/19 07/17/19 23:59 23:59 23:59 23:59 Intake Total 1947.5 3624 1983 Output Total 390 0 190 Balance 1557.5 3624 1793 Weight 43.4 kg 49.924 kg 52.798 kg 50.258 kg Gen: tachypneic on BiPAP Heart: RRR Lung: scattered rhonchi Abd: soft, nontender Ext: + edema CBC, BMP 07/17/19 06:00 07/17/19 06:00 Active Medications Acetaminophen (Ofirmev Injection -) 1,000 mg IVPB Q6H PRN PRN Reason: FEVER Last Admin: 07/13/19 21:41 Dose: 1,000 mg Aspirin (Asa -) 81 mg GT DAILY [facility] Last Admin: 07/17/19 10:06 Dose: 81 mg Chlorhexidine Gluconate (Hibiclens For Decolonization -) 1 applic TP HS LISA Last Admin: 07/16/19 22:38 Dose: 1 applic Heparin Sodium (Porcine) (Heparin -) 5,000 unit SQ TID LISA Last Admin: 07/17/19 07:59 Dose: 5,000 unit Cefepime HCl 1 gm/ Dextrose 100 mls @ 100 mls/hr IVPB Q8H-IV LISA; Protocol Last Admin: 07/17/19 10:06 Dose: 100 mls/hr Metoprolol Tartrate (Lopressor -) 25 mg PO BID LISA Last Admin: 07/17/19 10:06 Dose: 25 mg ASSESSMENT AND PLAN: Acute Hypoxic and Hypercapneic Respiratory Failure Pneumonia Septic Shock Acute Kidney Injury improving Lactic Acidosis resolved +Troponins likely Demand Ischemia Elevated LFTs likely Ischemic Injury Right Pneumothorax s/p chest tube placement LV Diastolic Dysfunction Chronic Subdural Hematoma - continue antibiotics - lasix if BP tolerates - monitor urine output, creatinine - off pressors, maintain MAP >65 - aspiration precautions - DVT/GI prophylaxis - continue ICU monitoring critical care time spent in reviewing chart, evaluating patient and formulating plan 35 min
--- NOTE | 2019-07-17 11:27 | PN ---
Progress Note, Physician History of Present Illness: Extubated on bipap 70%, right chest tube in place. Episodes of PSVT on telemetry. - Current Medication List Current Medications: Active Medications Acetaminophen (Ofirmev Injection -) 1,000 mg IVPB Q6H PRN PRN Reason: FEVER Last Admin: 07/13/19 21:41 Dose: 1,000 mg Aspirin (Asa -) 81 mg GT DAILY LISA Last Admin: 07/17/19 10:06 Dose: 81 mg Chlorhexidine Gluconate (Hibiclens For Decolonization -) 1 applic TP HS LISA Last Admin: 07/16/19 22:38 Dose: 1 applic Heparin Sodium (Porcine) (Heparin -) 5,000 unit SQ TID LISA Last Admin: 07/17/19 07:59 Dose: 5,000 unit Cefepime HCl 1 gm/ Dextrose 100 mls @ 100 mls/hr IVPB Q8H-IV LISA; Protocol Last Admin: 07/17/19 10:06 Dose: 100 mls/hr Metoprolol Tartrate (Lopressor -) 25 mg PO BID [facility] Last Admin: 07/17/19 10:06 Dose: 25 mg - Objective Vital Signs: Vital Signs Temperature 97.8 F 07/16/19 18:00 Pulse Rate 72 07/17/19 08:00 Respiratory Rate 18 07/17/19 08:00 Blood Pressure 135/38 L 07/17/19 08:00 O2 Sat by Pulse Oximetry (%) 100 07/17/19 09:00 Constitutional: Yes: No Distress, Calm Neck: Yes: Supple Cardiovascular: Yes: Regular Rate and Rhythm Respiratory: Yes: Regular, Diminished, On BiPap, Other (Right chest tube in place) Gastrointestinal: Yes: Normal Bowel Sounds, Soft Edema: No Labs: CBC, BMP 07/17/19 06:00 07/17/19 06:00 INR, PTT INR 1.34 (0.83-1.09) H 07/12/19 06:00 - ....Imaging EKG: Report Reviewed (Tele: NSR, PSVT) Problem List - Problems (1) Respiratory failure Code(s): J96.90 - RESPIRATORY FAILURE, UNSP, UNSP W HYPOXIA OR HYPERCAPNIA Qualifiers: Chronicity: acute Respiratory failure complication: hypoxia and hypercapnia Qualified Code(s): J96.01 - Acute respiratory failure with hypoxia ; J96.02 - Acute respiratory failure with hypercapnia (2) Diastolic dysfunction Code(s): I51.89 - OTHER ILL-DEFINED HEART DISEASES (3) Demand ischemia Code(s): I24.8 - OTHER FORMS OF ACUTE ISCHEMIC HEART DISEASE (4) Ischemic hepatitis Code(s): K75.9 - INFLAMMATORY LIVER DISEASE, UNSPECIFIED (5) Septic shock Code(s): A41.9 - SEPSIS, UNSPECIFIED ORGANISM; R65.21 - SEVERE SEPSIS WITH SEPTIC SHOCK (6) Iatrogenic pneumothorax Code(s): J95.811 - POSTPROCEDURAL PNEUMOTHORAX Assessment/Plan 07/12/2019 echo: Normal biventrucular size and fxn, mod MR, AR 1. Post Acute Hypoxic and Hypercapneic Respiratory Failure 2. Pneumonia 3. Post Septic Shock 4. Coronary artery disease with demand ischemic injury angina pectoris/elevated troponin I level related to sepsis syndrome 5. Diastolic left ventricular dysfunction with clinical class 0-I [place] [employer] classification left ventricular failure/elevated B-type natriuretic peptide- most likely related to sepsis syndrome 6. Hypertensive cardiovascular disease, hypotension related to the above-noted sepsis syndrome 7. History of non-sustained ventricular tachycardia 8. Aortic valve regurgitation 9. Tricuspid valve regurgitation with moderate degree of pulmonary hypertension 10. History of carotid stenosis, moderate in severity 11. Iatrogenic pneumothorax post right chest tube insertion/complication of subclavian line insertion 12. Abnormal liver function testing trending down, likely shock liver 13. Hyponatremia resolved 14. Chronic Subdural Hematoma 15. PSVT PLAN: 1. Antibiotics per C&S, remains off levophed gtt as MAP >65 2. Agree with ASA 81 qd, increased metoprolol 25 tid, start JOHANNA inhibitor or angiotensin receptor tino therapy, hemodynamics permitting 3. Wean FIO2 to maintain saO2, enteral feeds 4. DVT/GI prophylaxis
--- NOTE | 2019-07-17 11:28 | PN ---
Progress Note, Physician History of Present Illness: EXTUBATED NO ACUTE DISTRESS ON BIPAP AFEBRILE WBC SL ELEVATED - Current Medication List Current Medications: Active Medications Acetaminophen (Ofirmev Injection -) 1,000 mg IVPB Q6H PRN PRN Reason: FEVER Last Admin: 07/13/19 21:41 Dose: 1,000 mg Aspirin (Asa -) 81 mg GT DAILY LISA Last Admin: 07/17/19 10:06 Dose: 81 mg Chlorhexidine Gluconate (Hibiclens For Decolonization -) 1 applic TP HS LISA Last Admin: 07/16/19 22:38 Dose: 1 applic Heparin Sodium (Porcine) (Heparin -) 5,000 unit SQ TID LISA Last Admin: 07/17/19 07:59 Dose: 5,000 unit Cefepime HCl 1 gm/ Dextrose 100 mls @ 100 mls/hr IVPB Q8H-IV LISA; Protocol Last Admin: 07/17/19 10:06 Dose: 100 mls/hr Metoprolol Tartrate (Lopressor -) 25 mg PO BID [facility] Last Admin: 07/17/19 10:06 Dose: 25 mg - Objective Vital Signs: Vital Signs Temperature 97.8 F 07/16/19 18:00 Pulse Rate 72 07/17/19 08:00 Respiratory Rate 18 07/17/19 08:00 Blood Pressure 135/38 L 07/17/19 08:00 O2 Sat by Pulse Oximetry (%) 100 07/17/19 09:00 Constitutional: Yes: No Distress Eyes: Yes: Conjunctiva Clear Neck: Yes: Supple Cardiovascular: Yes: Regular Rate and Rhythm, S1, S2 Respiratory: Yes: Diminished Gastrointestinal: Yes: Normal Bowel Sounds, Soft. No: Tenderness Edema: No Labs: CBC, BMP 07/17/19 06:00 07/17/19 06:00 INR, PTT INR 1.34 (0.83-1.09) H 07/12/19 06:00 Assessment/Plan RESPIRATORY FAILURE S/P EXTUBATION PNEUMONIA SEPSIS LACTIC ACIDOSIS RESOLVED PNEUMOTHORAX CONTINUE CEFEPIME
[2019-07-17] MEDS ORDERED: FUROSEMIDE 40 MG/4 ML INJECTABLE VIAL IVPUSH ONE (11:56)
--- NOTE | 2019-07-17 15:41 | PN ---
Teaching Attending Note Name of Resident: Jason Alejo ATTENDING PHYSICIAN STATEMENT I saw and evaluated the patient. I reviewed the resident's note and discussed the case with the resident. I agree with the resident's findings and plan as documented. SUBJECTIVE: Patient remains in ICU, s/p extubation on bipap. now, awake Vital Signs Temperature 98.1 F 07/17/19 14:00 Pulse Rate 69 07/17/19 14:00 Respiratory Rate 24 H 07/17/19 14:00 Blood Pressure 121/38 L 07/17/19 14:00 O2 Sat by Pulse Oximetry (%) 100 07/17/19 11:58 GENERAL: The patient extubated, awake on Bipap HEAD: Normal with no signs of trauma. EYES:round small pupils, reactive to light ENT: Ears normal, oropharynx clear without exudates, moist mucous membranes. NECK: Trachea midline, full range of motion, supple. LUNGS: extubated s/p intubation. on the vent with chest tube on water seal HEART: RRR, 2/6 SM at apex which is heard louder in L axilla. 3/6 SM heard in back. No JVD ABDOMEN: Soft, soft, hypoactive BS. EXTREMITIES: 2+ pulses, warm, well-perfused, 2+ pitting edemas NEUROLOGICAL: Cranial nerves II through XII grossly intact. gait not observed. PSYCH: unable to access since intabated , but seems better, answers by opening and closing the eyes SKIN: Warm, dry, normal turgor, no rashes or lesions noted CBCD WBC 13.1 K/mm3 (4.0-10.0) H 07/17/19 06:00 RBC 3.94 M/mm3 (3.60-5.2) 07/17/19 06:00 Hgb 11.7 GM/dL (10.7-15.3) 07/17/19 06:00 Hct 36.0 % (32.4-45.2) D 07/17/19 06:00 MCV 91.2 fl (80-96) 07/17/19 06:00 MCHC 32.6 g/dl (32.0-36.0) 07/17/19 06:00 RDW 13.9 % (11.6-15.6) 07/17/19 06:00 Plt Count 279 K/MM3 (134-434) 07/17/19 06:00 MPV 8.7 fl (7.5-11.1) 07/17/19 06:00 CMP Sodium 146 mmol/L (136-145) H 07/17/19 06:00 Potassium 4.1 mmol/L (3.5-5.1) 07/17/19 06:00 Chloride 112 mmol/L (98-107) H 07/17/19 06:00 Carbon Dioxide 31 mmol/L (21-32) 07/17/19 06:00 Anion Gap 4 MMOL/L (8-16) L 07/17/19 06:00 BUN 11.6 mg/dL (7-18) 07/17/19 06:00 Creatinine 0.3 mg/dL (0.55-1.3) L 07/17/19 06:00 Random Glucose 88 mg/dL (74-106) 07/17/19 06:00 Calcium 8.7 mg/dL (8.5-10.1) 07/17/19 06:00 Total Bilirubin 0.6 mg/dL (0.2-1) 07/16/19 06:00 AST 53 U/L (15-37) H 07/16/19 06:00 ALT 201 U/L (13-61) H 07/16/19 06:00 Alkaline Phosphatase 67 U/L (45-117) 07/16/19 06:00 Total Protein 4.5 g/dl (6.4-8.2) L 07/16/19 06:00 Albumin 2.1 g/dl (3.4-5.0) L 07/16/19 06:00 CARDIAC ENZYMES Creatine Kinase 100 U/L (26-192) 07/13/19 05:45 Troponin I 0.36 ng/ml (0.00-0.05) H 07/13/19 05:45 Current Medications Generic Name Dose Route Start Last Admin Trade Name Freq PRN Reason Stop Dose Admin Acetaminophen 1,000 mg 07/13/19 21:33 07/13/19 21:41 Ofirmev Injection - IVPB 1,000 mg Q6H PRN Administration FEVER Aspirin 81 mg 07/16/19 14:00 07/17/19 10:06 Asa - GT 81 mg DAILY LISA Administration Chlorhexidine Gluconate 1 applic 07/12/19 22:00 07/16/19 22:38 Hibiclens For Decolonization - TP 1 applic HS LISA Administration Heparin Sodium (Porcine) 5,000 unit 07/12/19 14:00 07/17/19 15:07 Heparin - SQ 5,000 unit TID LISA Administration Cefepime HCl 1 gm/ Dextrose 100 mls @ 100 mls/hr 07/12/19 18:00 07/17/19 10: 06 IVPB 100 mls/hr Q8H-IV LISA Administration Protocol Metoprolol Tartrate 25 mg 07/17/19 14:00 07/17/19 15:07 Lopressor - PO 25 mg TID LISA Administration Home Medications Medication Instructions Recorded LORazepam [Lorazepam] 0.5 mg PO TID 07/07/19 Sertraline HCl 50 mg PO DAILY 07/07/19 traZODone HCL [Trazodone HCl] 50 mg PO DAILY 07/07/19 Acetaminophen [Tylenol 1,000 mg PO Q6H PRN #0 tablet 07/08/19 .Extra-Strength -] Calcium 500Mg/Vit-D 200 Units 1 tab PO BID 30 Days #60 tab 07/08/19 [Os-Silvio 500+D -] Metoprolol Succinate [Toprol XL -] 25 mg PO DAILY 30 Days #30 07/08/19 tab.sr.24h Amox-Tr/K Cl [Augmentin - 875Mg 1 tab PO BID #14 tablet 07/09/19 Tablet] Microbiology 07/13/19 18:30 Sputum - Endotrachea Suction/Ventilator Gram Stain - Final 07/13/19 18:30 Sputum - Endotrachea Suction/Ventilator Sputum Culture - Final Yeast Like Organism 07/12/19 00:11 Blood - Peripheral Venous Blood Culture - Preliminary NO GROWTH OBTAINED AFTER 96 HOURS, INCUBATION TO CONTINUE FOR 1 DAYS. 07/12/19 00:30 Blood - Peripheral Venous Blood Culture - Preliminary NO GROWTH OBTAINED AFTER 96 HOURS, INCUBATION TO CONTINUE FOR 1 DAYS. 07/14/19 05:50 Urine For Antigen Detection Legionella Antigen - Final 07/14/19 05:50 Urine For Antigen Detection Streptococcus pneumoniae Antigen (M - Final 07/12/19 00:11 Urine - Urine - Catheterized Urine Culture - Final NO GROWTH OBTAINED ASSESSMENT AND PLAN: Patient is an 88 y/of with Pmhx of diastolic dysfunction , HTN, depression, chronic R subdural hematoma , h/o ETOH abuse, R carotid artery stenosis, with a recent admission for PNA , and UTI, during which she had NSVT, was admitted for acute AMS and with acute hypoximia , hypercapnic resp failure. #S/p PTx ; chest tube placed and lung expanded, continue chest tube on water seal , cardio thoracic is on the case. Dr. Arechiga , further care per ICU # Acute hypoxic hypercapnic respiratory failure s/p extubation. due to due to PNA, off the Vent. now # Acute diastolic heart failure; last echo reviewed. on lopressor , start JOHANNA inhibitor or angiotensin receptor tino therapy once hemodynamicly stable # s/p Septic shock due to PNA: continue Abx , off levophed , monitor ,ID on the case, continue IV antibiotics # Acute PNA: on cefepime , blood cx is neg. # HARJINDER: likely prerenal. improved , monitor cr. no need fro renal US # Acute Hyponatremia: improved # Acute Transaminitis: could be due to sepsis, vs passive liver congestion from heart failure. tylenol level is low. # R pneumothorax s/p TLC per ED: resolved on repeat cxray , repeaT CXR in am # ELEvated trop:most likely demand ischemia DVT PX : add heparin SQ
[2019-07-17] MEDS: PROPOFOL 1,000,000 MCG/100 ML VIAL IVPB SCH (21:18)
[2019-07-17] MEDS: CHLORHEXIDINE GLUCONATE 4% CLEANSER FOR DECOLONIZATION TP SCH (21:18)
[2019-07-18] MEDS: CEFEPIME 1 GM in DEXTROSE 5%-WATER 100 ML IVPB SCH ×3 (01:12→18:04)
[2019-07-18] MEDS: HEPARIN NA (PORCINE) 5,000 UNITS/ML 1ML VIAL SQ SCH ×3 (05:53→21:18)
[2019-07-18] MEDS: METOPROLOL TARTRATE 25 MG TABLET (FP) PO SCH ×3 (05:53→21:19)
[2019-07-18] MEDS ORDERED: CEFEPIME HCL 1 GM VIAL (RESTRICTED TO ID) ONE ×3 (05:55→17:27)
[2019-07-18] MEDS ORDERED: DEXTROSE 5%-WATER 100 ML IVPB ONE ×3 (05:55→17:27)
[2019-07-18 06:46] LABS: BASO % 0.9 % (0-2.0); EOS % 0.9 % (0-4.5); HEMATOCRIT 34.9 % (32.4-45.2); HEMOGLOBIN 11.3 GM/dL (10.7-15.3); LYMPH % 10.2 % (8-40); MCH 29.7 pg (25.7-33.7); MCHC 32.3 g/dl (32.0-36.0); MEAN CELL VOLUME 92.2 fl (80-96); MEAN PLT VOLUME 8.6 fl (7.5-11.1); MONO % 9.5 % (3.8-10.2); NEUT % 78.5 % (42.8-82.8); PLATELET COUNT 317 K/MM3 (134-434); RBC 3.79 M/mm3 (3.60-5.2); WHITE BLOOD COUNT 12.7 K/mm3 (4.0-10.0)
[2019-07-18 07:07] LABS: ALBUMIN 2.4 g/dl (3.4-5.0); BILIRUBIN,TOTAL 0.6 mg/dL (0.2-1); BLOOD UREA NITROGEN 18.8 mg/dL (7-18); CALCIUM 8.8 mg/dL (8.5-10.1); CREATININE 0.3 mg/dL (0.55-1.3); MAGNESIUM 1.9 mg/dL (1.8-2.4); PHOSPHOROUS 3.3 mg/dL (2.5-4.9); POTASSIUM 3.7 mmol/L (3.5-5.1); TOT PROT 5.1 g/dl (6.4-8.2)
[2019-07-18] MEDS ORDERED: MAGNESIUM SULF 50% (8.12 MEQ/2 ML-1 GM VIAL) IVPB ONE (08:45)
[2019-07-18] MEDS: KCL 10 MEQ IVPB 10 MEQ/100 ML INFUS.BAG IVPB SCH ×3 (10:05→13:23)
[2019-07-18] MEDS: ASPIRIN 81 MG CHEWABLE TABLETS GT SCH (10:14)
--- NOTE | 2019-07-18 10:25 | PN ---
Progress Note, Physician Chief Complaint: Events noted Remains in ICU appears comfortable History of Present Illness: Patient was seen and examined. Awake and alert. Chart was reviewed Denies chest pain or palpitations Breathing comfortable Chest tube draining - Current Medication List Current Medications: Active Medications Acetaminophen (Ofirmev Injection -) 1,000 mg IVPB Q6H PRN PRN Reason: FEVER Last Admin: 07/13/19 21:41 Dose: 1,000 mg Aspirin (Asa -) 81 mg GT DAILY [facility] Last Admin: 07/18/19 10:14 Dose: 81 mg Chlorhexidine Gluconate (Hibiclens For Decolonization -) 1 applic TP HS [facility] Last Admin: 07/17/19 21:18 Dose: 1 applic Heparin Sodium (Porcine) (Heparin -) 5,000 unit SQ TID [facility] Last Admin: 07/18/19 05:53 Dose: 5,000 unit Cefepime HCl 1 gm/ Dextrose 100 mls @ 100 mls/hr IVPB Q8H-IV LISA; Protocol Last Admin: 07/18/19 10:14 Dose: 100 mls/hr Potassium Chloride (Potassium Chloride 10 Meq Premix Ivpb -) 10 meq in 100 mls @ 100 mls/hr IVPB Q60M [facility] Stop: 07/18/19 11:29 Last Admin: 07/18/19 10:05 Dose: 100 mls/hr Metoprolol Tartrate (Lopressor -) 25 mg PO TID [facility] Last Admin: 07/18/19 05:53 Dose: 25 mg - Objective Vital Signs: Vital Signs Temperature 98.1 F 07/18/19 06:00 Pulse Rate 72 07/18/19 08:28 Respiratory Rate 26 H 07/18/19 08:00 Blood Pressure 134/39 L 07/18/19 08:00 O2 Sat by Pulse Oximetry (%) 98 07/18/19 08:28 Eyes: Yes: PERRL HENT: Yes: Atraumatic Neck: Yes: Supple Cardiovascular: Yes: Regular Rate and Rhythm, S1, S2 Respiratory: Yes: Diminished, Other (Chest tube in place) Gastrointestinal: Yes: Normal Bowel Sounds, Soft. No: Tenderness Edema: No Additional Findings/Remarks: - Review of Systems Constitutional: denies: Chills, Fever Cardiovascular: denies: Chest Pain, Palpitations, (+) Shortness of Breath Respiratory: denies: Cough, Hemoptysis, Orthopnea, PND, (+) SOB on Exertion, Gastrointestinal: denies: Abdominal Pain, Constipation, Diarrhea, Melena, Nausea , Rectal Bleeding, Vomiting Neurological: denies: Dizziness, Headache, Seizure, Syncope Labs: CBC, BMP 07/18/19 05:30 07/18/19 06:00 Problem List - Problems (1) Demand ischemia Code(s): I24.8 - OTHER FORMS OF ACUTE ISCHEMIC HEART DISEASE (2) Iatrogenic pneumothorax Code(s): J95.811 - POSTPROCEDURAL PNEUMOTHORAX (3) Respiratory failure Code(s): J96.90 - RESPIRATORY FAILURE, UNSP, UNSP W HYPOXIA OR HYPERCAPNIA Qualifiers: Chronicity: acute Respiratory failure complication: hypoxia and hypercapnia Qualified Code(s): J96.01 - Acute respiratory failure with hypoxia ; J96.02 - Acute respiratory failure with hypercapnia (4) Septic shock Code(s): A41.9 - SEPSIS, UNSPECIFIED ORGANISM; R65.21 - SEVERE SEPSIS WITH SEPTIC SHOCK (5) Anemia Code(s): D64.9 - ANEMIA, UNSPECIFIED (6) Diastolic dysfunction Code(s): I51.89 - OTHER ILL-DEFINED HEART DISEASES (7) HTN (hypertension) Code(s): I10 - ESSENTIAL (PRIMARY) HYPERTENSION Qualifiers: Hypertension type: essential hypertension Qualified Code(s): I10 - Essential (primary) hypertension Assessment/Plan 1. Post Acute Hypoxic and Hypercapneic Respiratory Failure 2. Pneumonia 3. Post Septic Shock 4. Coronary artery disease, angina pectoris/elevated troponin I level related to sepsis syndrome and demand ischemia 5. Diastolic left ventricular dysfunction with clinical class 0-I [place] [employer] classification left ventricular failure/elevated BNP - most likely related to sepsis syndrome 6. Hypertensive cardiovascular disease, hypotension related to the above-noted sepsis syndrome 7. History of non-sustained ventricular tachycardia 8. Aortic valve regurgitation 9. Tricuspid valve regurgitation with moderate degree of pulmonary hypertension 10. History of carotid stenosis, moderate in severity 11. Iatrogenic pneumothorax post right chest tube insertion/complication of subclavian line insertion 12. Abnormal liver function testing trending down, likely shock liver 13. Hyponatremia resolved 14. Chronic Subdural Hematoma 15. PSVT PLAN: 1. Antibiotics coverage 2. Continue ASA 81 mg QD, Metoprolol 25 mg TID and start JOHANNA inhibitor or angiotensin receptor tino therapy if hemodynamics permit 3. Continue enteral feeds 4. DVT/GI prophylaxis Further plans are to follow Robbi Markham MD
[2019-07-18] MEDS ORDERED: FUROSEMIDE 40 MG/4 ML INJECTABLE VIAL IVPUSH ONE (10:27)
--- NOTE | 2019-07-18 10:32 | PN ---
Teaching Attending Note Name of Resident: Zoila Espinosa ATTENDING PHYSICIAN STATEMENT I saw and evaluated the patient. I reviewed the resident's note and discussed the case with the resident. I agree with the resident's findings and plan as documented. SUBJECTIVE: Pt seen and examined in the ICU. Much more alert, awake today. Saturating well on nasal cannula. OBJECTIVE: Vital Signs Period Temp Pulse Resp BP Sys/Da Silva Pulse Ox Last 24 Hr 98 F-98.2 F 64-82 22-26 118-142/34-88 96-100 Intake & Output 07/15/19 07/16/19 07/17/19 07/18/19 23:59 23:59 23:59 23:59 Intake Total 3624 1983 200 200 Output Total 0 190 Balance 3624 1793 200 200 Weight 49.924 kg 52.798 kg 50.258 kg 50.258 kg Gen: awake, alert, NAD Heart: RRR Lung: decreased breath sounds at the bases Abd: soft, nontender Ext: no edema CBC, BMP 07/18/19 05:30 07/18/19 06:00 Active Medications Acetaminophen (Ofirmev Injection -) 1,000 mg IVPB Q6H PRN PRN Reason: FEVER Last Admin: 07/13/19 21:41 Dose: 1,000 mg Aspirin (Asa -) 81 mg GT DAILY [facility] Last Admin: 07/18/19 10:14 Dose: 81 mg Chlorhexidine Gluconate (Hibiclens For Decolonization -) 1 applic TP HS [facility] Last Admin: 07/17/19 21:18 Dose: 1 applic Heparin Sodium (Porcine) (Heparin -) 5,000 unit SQ TID [facility] Last Admin: 07/18/19 05:53 Dose: 5,000 unit Cefepime HCl 1 gm/ Dextrose 100 mls @ 100 mls/hr IVPB Q8H-IV LISA; Protocol Last Admin: 07/18/19 10:14 Dose: 100 mls/hr Potassium Chloride (Potassium Chloride 10 Meq Premix Ivpb -) 10 meq in 100 mls @ 100 mls/hr IVPB Q60M [facility] Stop: 07/18/19 11:29 Last Admin: 07/18/19 10:05 Dose: 100 mls/hr Metoprolol Tartrate (Lopressor -) 25 mg PO TID [facility] Last Admin: 12/23/19 05:53 Dose: 25 mg ASSESSMENT AND PLAN: Acute Hypoxic and Hypercapneic Respiratory Failure improving Pneumonia Septic Shock Acute Kidney Injury improving Lactic Acidosis resolved +Troponins likely Demand Ischemia Elevated LFTs likely Ischemic Injury Right Pneumothorax s/p chest tube placement LV Diastolic Dysfunction Chronic Subdural Hematoma - continue antibiotics - lasix today - monitor urine output, creatinine - off pressors, maintain MAP >65 - PO as tolerated - aspiration precautions - DVT prophylaxis - can monitor on telemetry
--- NOTE | 2019-07-18 11:09 | PN ---
Physical Exam: SUBJECTIVE: Patient seen and examined. Alert, says she is feeling really well today. Satting well off bipap now on nasal cannula. Tolerating PO water. OBJECTIVE: Vital Signs Period Temp Pulse Resp BP Sys/Da Silva Pulse Ox Last 24 Hr 98 F-98.2 F 64-85 22-26 118-142/34-88 96-100 GENERAL: AOx3 NAD HEENT: NCAT PERRLA. R eyebrow suturess s/p fall last admission LUNGS: B/l upper lobe fine crackling. B/l decreased breath sounds at bases. HEART: RRR S1S2 heard no murmurs ABDOMEN: Soft NTND. + BS EXTREMITIES: 2+ pulses, warm, well-perfused, no edema. NEUROLOGICAL: nonfocal exam PSYCH: Normal mood, normal affect. SKIN: RUE bruising, healing Laboratory Results - last 24 hr 07/17/19 07/17/19 07/18/19 12:35 16:47 05:30 WBC 12.7 H RBC 3.79 Hgb 11.3 Hct 34.9 MCV 92.2 MCH 29.7 MCHC 32.3 RDW 14.0 Plt Count 317 MPV 8.6 Absolute Neuts (auto) 10.0 H Neutrophils % 78.5 Lymphocytes % 10.2 D Monocytes % 9.5 Eosinophils % 0.9 Basophils % 0.9 Nucleated RBC % 0 Sodium Potassium Chloride Carbon Dioxide Anion Gap BUN Creatinine Est GFR (CKD-EPI)AfAm Est GFR (CKD-EPI)NonAf POC Glucometer 97 80 Random Glucose Calcium Phosphorus Magnesium Total Bilirubin AST ALT Alkaline Phosphatase Total Protein Albumin 07/18/19 07/18/19 06:00 06:01 WBC RBC Hgb Hct MCV MCH MCHC RDW Plt Count MPV Absolute Neuts (auto) Neutrophils % Lymphocytes % Monocytes % Eosinophils % Basophils % Nucleated RBC % Sodium 146 H Potassium 3.7 Chloride 109 H Carbon Dioxide 32 Anion Gap 4 L BUN 18.8 H Creatinine 0.3 L Est GFR (CKD-EPI)AfAm 120.16 Est GFR (CKD-EPI)NonAf 103.67 POC Glucometer 92 Random Glucose 88 Calcium 8.8 Phosphorus 3.3 Magnesium 1.9 Total Bilirubin 0.6 AST 36 ALT 139 H Alkaline Phosphatase 126 H Total Protein 5.1 L Albumin 2.4 L Active Medications Generic Name Dose Route Start Last Admin Trade Name Freq PRN Reason Stop Dose Admin Acetaminophen 1,000 mg 07/13/19 21:33 07/13/19 21:41 Ofirmev Injection - IVPB 1,000 mg Q6H PRN Administration FEVER Aspirin 81 mg 07/16/19 14:00 07/18/19 10:14 Asa - GT 81 mg DAILY [facility] Administration Chlorhexidine Gluconate 1 applic 07/12/19 22:00 07/17/19 21:18 Hibiclens For Decolonization - TP 1 applic HS LISA Administration Heparin Sodium (Porcine) 5,000 unit 07/12/19 14:00 07/18/19 05:53 Heparin - SQ 5,000 unit TID [facility] Administration Cefepime HCl 1 gm/ Dextrose 100 mls @ 100 mls/hr 07/12/19 18:00 07/18/19 10: 14 IVPB 100 mls/hr Q8H-IV LISA Administration Protocol Potassium Chloride 10 meq in 100 mls @ 100 mls/hr 07/18/19 08:30 07/18/19 10: 05 Potassium Chloride 10 Meq Premix Ivpb - IVPB 07/18/19 11:29 100 mls/hr Q60M [facility] Administration Metoprolol Tartrate 25 mg 07/17/19 14:00 07/18/19 05:53 Lopressor - PO 25 mg TID LISA Administration ASSESSMENT/PLAN: 88 y.o. F PMH HTN, recurring falls, depression, diastolic HFpEF, aortic stenosis , CCA stenosis, alcohol abuse, recently d/c'd 07/10/19 2/2 PNA, presenting with acute hypoxic hypercarbic respiratory failure 2/2 PNA. #Neuro -Off sedation -Hx of alcohol abuse, off versed, no withdrawal symptoms. Continue to monitor mental status #CV -Episodes of PSVT on tele, continue to monitor -Off pressors -Echo 07/07/19: EF 55-60%, mild MR, pulm HTN, & AR -EKG NSR no ST changes -Trops downtrended -Cardio Dr. Goddard/ Dr. Beck following-- continue daily aspirin, resume metoprolol 25mg bid, start skyler/arb once permitting #Pulm -Extubated -Removing chest tube today, surgery on board -Satting well on 3L NC -CXR today unchanged from prior study -Lasix 40mg IV today; monitor output #Renal -HARJINDER, resolved -monitor Cr #GI -LFTs downtrending -follow bmp #Heme/Onc -Leukocytosis 2/2 PNA resolved -Blood cx's neg # -Mills in place continue to monitor outputs #ID -C/w abx cefepime -legionella ag negative -ID following #PPX -Heparin SQ #FEN -no standing fluids -mild hypernatremia; trend lytes -Advance diet as tolerated #Dispo Telemetry Visit type - Emergency Visit Emergency Visit: No - New Patient This patient is new to me today: No - Critical Care Critical Care patient: Yes Total Critical Care Time (in minutes): 36 Critical Care Statement: The care of this patient involved high complexity decision making to prevent further life threatening deterioration of the patient 's condition and/or to evaluate & treat vital organ system(s) failure or risk of failure. ATTENDING PHYSICIAN STATEMENT I saw and evaluated the patient. I reviewed the resident's note and discussed the case with the resident. I agree with the resident's findings and plan as documented. SUBJECTIVE: OBJECTIVE: ASSESSMENT AND PLAN:
--- NOTE | 2019-07-18 12:43 | CONSULT ---
Admitting History and Physical - Primary Care Physician PCP: Slim Quiroz - Admission History of Present Illness: 88 yo F PMH of HFpEF, HTN, depression, right CCA stenosis recently admitted to [facility] ( d/c on 07/10) BIBEMS for altered mental status. PT was recently admitted to [facility] 08/28 fall. She was worked up for pneumonia and UTI -Respiratory failure with hypercapnia. Pt intubated/vented, on levophed. -PNA, septic shock, HARJINDER, lactic acidosis. -Rt pneumothorax s/p chest tube placement. Self extubated on 07/16 and NGT removed. Pt with severe temporal wasting per RD Left hand contracted Head CT : negative for acute intracranial pathology Chest CT:Small right pneumothorax, approximately 10-15%Small bilateral pleural effusions with bilateral compression atelectasis, Patchy infiltrates within the right upper lobe 2018-[facility] parietal craniotomy This is my first consult for this pt. History Source: Medical Record Limitations to Obtaining History: Clinical Condition - Past Medical History Cardiovascular: Yes: HTN Psych: Yes: Depression - Smoking History Smoking history: Unknown if ever smoked Have you smoked in the past 12 months: No Aproximately how many cigarettes per day: 0 - Alcohol/Substance Use Hx Alcohol Use: No History of Substance Use: reports: None History - Admission Reason For Visit: RESPIRATORY FAILURE WITH HYPERCAPNIA - Diagnostics X-ray: Report Reviewed CT Scan: Report Reviewed (head no change) - General Mental Status: Awake and Alert, Able to Follow Commands, Forgetful Attention: Intact Ability to Follow Directions: Good Head/Neck Control: WFL - Hearing Hearing: Impaired Hearing Aide: No Speech Evaluation - Communication Primary Language: INDIAN Communication: Yes: Within Normal Limits Oral Expression Ability: Yes: No Impairment - Speech Production Able to Make Needs Known: Yes: WNL Intelligibility: Yes: WNL - Speech Characteristics Voice Loudness: Normal Voice Pitch: Yes: Normal Voice Phonatory-based Quality: Yes: Normal Speech Pattern: Normal Speech Clarity: < 100% Nasal Resonance: Normal Articulation: Yes: Precise Rate of Speech: Intact - Language/Auditory Comprehension Follows: Yes: 1 Stage Simple Commands Observation: Able to respond to yes/no queries: Yes, Yes/No Confusion: No, Comprehends Conversational Speech: Yes - Language/Verbal Expression Able to Respond to Simple Queries: Yes: WNL Able to Communicate Wants and Needs: Yes: WNL Functional Communication Status: Yes: WNL - Swallow Evaluation/Bedside Assessment Current Nutritional Intake: Soft, Thin Liquids Dentition: Yes: Adequate Facial Symmetry at Rest: Symmetrical (upper lip swollen) Facial Symmetry on Retraction: Symmetrical Lingual Movement: Normal, Symmetric Lingual Speed of Movement: Normal Lingual Movement Strgth Against Opposition: Normal Lingual Movement Characteristics: Normal Velopharyngeal Movement: Normal Laryngeal Elevation: WFL Laryngeal Movement: Able to Palpate Rate of Intake: WFL Bolus Size: WFL Labial Seal: WFL Chewing: Impaired (extended mastication, does not want chopped food) Oral Prep Time: Increased A-P Transit: WFL Coughing/Throat Clear: No (3 oz water (-)) Change in Voice: No Recommendations - Speech Evaluation, Impression/Plan Impression: Verbal. good voice. Forgetful but appropriate for me. Upper lip swollen. extended mastication. - Dysphagia Impressions/Plan Dysphagia Impressions: Mild Impairment *Silent aspiration: cannot be R/O at bedside Dysphagia Treatment Plan: Small Bites, Chin Tuck/Down, Clear Pocket Food, Trial Feedings, Safe Rate, 1/2 tsp. at a time, Elevate HOB during feed Recommendations: Modified Barium Swallow (if couigh, congestion, fever) - Recommendations Diet Consistency: Regular (soft easy to chew, staff mash food, extra gravy) Liquids: Thin Liquids
--- NOTE | 2019-07-18 15:08 | PN ---
Physical Exam: SUBJECTIVE: Patient seen and examined at bedside. Patient extubated, now on 4 L NC. No present complaints, no events overnight. Patient denies chest pain. Chest tube to be removed today. OBJECTIVE: Vital Signs Period Temp Pulse Resp BP Sys/Da Silva Pulse Ox Last 24 Hr 98 F-98.2 F 64-85 22-26 118-142/34-88 96-99 GENERAL: AOx3, in no acute distress HEAD: NC. 3 cm healed, vertical laceration on RIGHT advent EYES: NELSON, EOMI, conjunctiva clear. ENT: Ears normal, nares patent, oropharynx clear without exudates. Moist mucous membranes. NECK: Normal range of motion, supple without lymphadenopathy, JVD, or masses. LUNGS: CTAB. No wheezes, and no crackles. No accessory muscle use. HEART: RRR s1 s2. 2/6 systolic murmur radiating to back. ABDOMEN: Soft, BS present in all 4 quadrants, non-distended, no JVD, MUSCULOSKELETAL: Kyphosis. No bony deformities or tenderness. No CVA tenderness. UPPER EXTREMITIES: 2+ pulses, warm, well-perfused. No cyanosis. No clubbing. No peripheral edema. LOWER EXTREMITIES: 2+ pulses, warm, well-perfused. No calf tenderness. No peripheral edema. NEUROLOGICAL: No focal deficits. Cranial nerves II-XII intact. Normal speech. PSYCHIATRIC: Cooperative. Good eye contact. Appropriate mood and affect. SKIN: x5 RUE ecchymosis. Echymosis on flexor surface of RUE. Warm, dry, normal turgor, normal capillary refill. Laboratory Results - last 24 hr 07/17/19 07/18/19 07/18/19 16:47 05:30 06:00 WBC 12.7 H RBC 3.79 Hgb 11.3 Hct 34.9 MCV 92.2 MCH 29.7 MCHC 32.3 RDW 14.0 Plt Count 317 MPV 8.6 Absolute Neuts (auto) 10.0 H Neutrophils % 78.5 Lymphocytes % 10.2 D Monocytes % 9.5 Eosinophils % 0.9 Basophils % 0.9 Nucleated RBC % 0 Sodium 146 H Potassium 3.7 Chloride 109 H Carbon Dioxide 32 Anion Gap 4 L BUN 18.8 H Creatinine 0.3 L Est GFR (CKD-EPI)AfAm 120.16 Est GFR (CKD-EPI)NonAf 103.67 POC Glucometer 80 Random Glucose 88 Calcium 8.8 Phosphorus 3.3 Magnesium 1.9 Total Bilirubin 0.6 AST 36 ALT 139 H Alkaline Phosphatase 126 H Total Protein 5.1 L Albumin 2.4 L 07/18/19 07/18/19 06:01 12:36 WBC RBC Hgb Hct MCV MCH MCHC RDW Plt Count MPV Absolute Neuts (auto) Neutrophils % Lymphocytes % Monocytes % Eosinophils % Basophils % Nucleated RBC % Sodium Potassium Chloride Carbon Dioxide Anion Gap BUN Creatinine Est GFR (CKD-EPI)AfAm Est GFR (CKD-EPI)NonAf POC Glucometer 92 101 Random Glucose Calcium Phosphorus Magnesium Total Bilirubin AST ALT Alkaline Phosphatase Total Protein Albumin Active Medications Acetaminophen (Ofirmev Injection -) 1,000 mg IVPB Q6H PRN PRN Reason: FEVER Last Admin: 07/13/19 21:41 Dose: 1,000 mg Aspirin (Asa -) 81 mg GT DAILY [facility] Last Admin: 07/18/19 10:14 Dose: 81 mg Chlorhexidine Gluconate (Hibiclens For Decolonization -) 1 applic TP HS [facility] Last Admin: 07/17/19 21:18 Dose: 1 applic Heparin Sodium (Porcine) (Heparin -) 5,000 unit SQ TID [facility] Last Admin: 07/18/19 13:34 Dose: 5,000 unit Cefepime HCl 1 gm/ Dextrose 100 mls @ 100 mls/hr IVPB Q8H-IV [facility]ISA; Protocol Last Admin: 07/18/19 10:14 Dose: 100 mls/hr Metoprolol Tartrate (Lopressor -) 25 mg PO TID [facility] Last Admin: 07/18/19 13:34 Dose: [address] : negative for acute intracranial pathology Chest CT:Small right pneumothorax, approximately 10-15%Small bilateral pleural effusions with bilateral compression atelectasis, Patchy infiltrates within the right upper lobe ASSESSMENT/PLAN: 88 y/o female PMH HTN, HFpEF, depression, chronic RIGHT subdural hematoma, ETOH abuse, RIGHT carotid artery stenosis, and recent admission for PNA and UTI. Pt brought to hospital after lack of responsiveness and desaturating to the 80s. She was admitted for care of acute hypoxic, hypercapnic respiratory failure. # Acute hypoxic, hypercapnic respiratory failure: Physiologic changes of sepsis vs PNA vs exacerbation of HF - Stable today. Transfer pending. - Lasix, monitor i/o - Diastolic left ventricular dysfunction with clinical class 0-I [place] [employer] classification left ventricular failure/elevated B-type natriuretic peptide- most likely related to sepsis syndrome. Moderate pulmonary HTN. - Flu swab NEGATIVE - Continue cefepime 1 g IV q8h, dc vanc - F/u sputum culture - F/u urinary antigens - 3 mcq NE for hemodynamic support, maintain MAP > 65 - Repeat echo: mitral valve regurg, aortic regurg. Echo done 07/07/19: EF 55-60% , mild MR, pulm HTN, & AR - Urine culture NEGATIVE - Blood culture NEGATIVE - F/u urine tox # HTN - Resume metoprolol 25 bid per cardiology recommendation - Start JOHANNA inhibitor or angiotensin receptor tino therapy, hemodynamics permitting # HARJINDER - Improving BUN/Cr 9.5/0.3. Previously 11.4/0.3 - Low cr likely 2/2 low muscle mass - Avoid aggressive hydration # Hyponatremia, resolved - HF vs poor po intake - F/u urine electrolytes: high urineurea nitrogen 545 - I/o - Daily weights # Transaminitis: hypotension vs toxicity vs sepsis vs liver congestion 2/2 heart failure - Repeat liver function improved 132/309 - Likely ischemic hepatitis - US of liver: fatty liver VS hepatocellular disease. 8x9 possible cyst in pancreatic head. Recommend MRI. - Acetominophen level 5.2, WNL # Sepsis with septic shock: Likely due to PNA - Now off ff Levo - Dc vancomycin - Continue Cefepime 1 gm IV q8h # RIGHT pneumothorax - Resolved on repeat CXR - F/u CXR in AM # Troponemia - 0.88 -> 0.93 -> 0.36 - Likely 2/2 sepsis (demand ischemia, hypoxia) - EKG with new inverted TWI anterioseptal leads and L axis deviation which are new compared to EKG form last admission (possible NSTEMI) - Cardiology concurs, likely 2/2 demand in setting of sepsis > ASA 81 mg QD, Metoprolol 25 mg TID and start JOHANNA inhibitor or angiotensin receptor tino therapy if hemodynamics permit # Leukocytosis, resolved - WBC 12.7 - PNA vs left shift # Hypophosphatemia, resolved - NL today - Repleted with K phos 30 mg IV on Jul 14 # F/E/N - NS @ 83mL/hr - Cont. to monitor - Thin liquids # DVT prophylaxis - Heparin SQ # Disposition - Full code - Transfer to telemetry Enrrique Lin MD Visit type - Emergency Visit Emergency Visit: No - New Patient This patient is new to me today: No - Critical Care Critical Care patient: No ATTENDING PHYSICIAN STATEMENT I saw and evaluated the patient. I reviewed the resident's note and discussed the case with the resident. I agree with the resident's findings and plan as documented. SUBJECTIVE: OBJECTIVE: ASSESSMENT AND PLAN:
--- NOTE | 2019-07-18 18:15 | PN ---
Teaching Attending Note Name of Resident: Max Almaraz ATTENDING PHYSICIAN STATEMENT I saw and evaluated the patient. I reviewed the resident's note and discussed the case with the resident. I agree with the resident's findings and plan as documented. SUBJECTIVE: Patient is comfortable with no acute distress, alert , awake. Vital Signs Temperature 98.1 F 07/18/19 16:00 Pulse Rate 76 07/18/19 16:00 Respiratory Rate 26 H 07/18/19 16:00 Blood Pressure 150/40 L 07/18/19 16:00 O2 Sat by Pulse Oximetry (%) 97 07/18/19 09:00 GENERAL: The patient extubated, on 2 liter oxygen HEAD: Normal with no signs of trauma. EYES:round small pupils, reactive to light ENT: Ears normal, oropharynx clear without exudates, moist mucous membranes. NECK: Trachea midline, full range of motion, supple. LUNGS: extubated s/p intubation. on the vent with chest tube on water seal, kyphotic. HEART: RRR, 2/6 SM at apex which is heard louder in L axilla. 3/6 SM heard in back. No JVD ABDOMEN: Soft, soft, hypoactive BS. EXTREMITIES: 2+ pulses, warm, well-perfused, 2+ pitting edemas NEUROLOGICAL: Cranial nerves II through XII grossly intact. gait not observed. SKIN: Warm, dry, normal turgor, no rashes or lesions noted CBCD WBC 12.7 K/mm3 (4.0-10.0) H 07/18/19 05:30 RBC 3.79 M/mm3 (3.60-5.2) 07/18/19 05:30 Hgb 11.3 GM/dL (10.7-15.3) 07/18/19 05:30 Hct 34.9 % (32.4-45.2) 07/18/19 05:30 MCV 92.2 fl (80-96) 07/18/19 05:30 MCHC 32.3 g/dl (32.0-36.0) 07/18/19 05:30 RDW 14.0 % (11.6-15.6) 07/18/19 05:30 Plt Count 317 K/MM3 (134-434) 07/18/19 05:30 MPV 8.6 fl (7.5-11.1) 07/18/19 05:30 CMP Sodium 146 mmol/L (136-145) H 07/18/19 06:00 Potassium 3.7 mmol/L (3.5-5.1) 07/18/19 06:00 Chloride 109 mmol/L (98-107) H 07/18/19 06:00 Carbon Dioxide 32 mmol/L (21-32) 07/18/19 06:00 Anion Gap 4 MMOL/L (8-16) L 07/18/19 06:00 BUN 18.8 mg/dL (7-18) H 07/18/19 06:00 Creatinine 0.3 mg/dL (0.55-1.3) L 07/18/19 06:00 Random Glucose 88 mg/dL (74-106) 07/18/19 06:00 Calcium 8.8 mg/dL (8.5-10.1) 07/18/19 06:00 Total Bilirubin 0.6 mg/dL (0.2-1) 07/18/19 06:00 AST 36 U/L (15-37) 07/18/19 06:00 ALT 139 U/L (13-61) H 07/18/19 06:00 Alkaline Phosphatase 126 U/L (45-117) H 07/18/19 06:00 Total Protein 5.1 g/dl (6.4-8.2) L 07/18/19 06:00 Albumin 2.4 g/dl (3.4-5.0) L 07/18/19 06:00 CARDIAC ENZYMES Creatine Kinase 100 U/L (26-192) 07/13/19 05:45 Troponin I 0.36 ng/ml (0.00-0.05) H 07/13/19 05:45 Current Medications Generic Name Dose Route Start Last Admin Trade Name Freq PRN Reason Stop Dose Admin Acetaminophen 1,000 mg 07/13/19 21:33 07/13/19 21:41 Ofirmev Injection - IVPB 1,000 mg Q6H PRN Administration FEVER Aspirin 81 mg 07/16/19 14:00 07/18/19 10:14 Asa - GT 81 mg DAILY LISA Administration Chlorhexidine Gluconate 1 applic 07/12/19 22:00 07/17/19 21:18 Hibiclens For Decolonization - TP 1 applic HS [facility] Administration Heparin Sodium (Porcine) 5,000 unit 07/12/19 14:00 07/18/19 13:34 Heparin - SQ 5,000 unit TID LISA Administration Cefepime HCl 1 gm/ Dextrose 100 mls @ 100 mls/hr 07/12/19 18:00 07/18/19 18: 04 IVPB 100 mls/hr Q8H-IV LISA Administration Protocol Metoprolol Tartrate 25 mg 07/17/19 14:00 07/18/19 13:34 Lopressor - PO 25 mg TID LISA Administration Home Medications Medication Instructions Recorded LORazepam [Lorazepam] 0.5 mg PO TID 07/07/19 Sertraline HCl 50 mg PO DAILY 07/07/19 traZODone HCL [Trazodone HCl] 50 mg PO DAILY 07/07/19 Acetaminophen [Tylenol 1,000 mg PO Q6H PRN #0 tablet 07/08/19 .Extra-Strength -] Calcium 500Mg/Vit-D 200 Units 1 tab PO BID 30 Days #60 tab 07/08/19 [Os-Silvio 500+D -] Metoprolol Succinate [Toprol XL -] 25 mg PO DAILY 30 Days #30 07/08/19 tab.sr.24h Amox-Tr/K Cl [Augmentin - 875Mg 1 tab PO BID #14 tablet 07/09/19 Tablet] Microbiology 07/13/19 18:30 Sputum - Endotrachea Suction/Ventilator Gram Stain - Final 07/13/19 18:30 Sputum - Endotrachea Suction/Ventilator Sputum Culture - Final Yeast Like Organism 07/12/19 00:11 Blood - Peripheral Venous Blood Culture - Preliminary NO GROWTH OBTAINED AFTER 96 HOURS, INCUBATION TO CONTINUE FOR 1 DAYS. 07/12/19 00:30 Blood - Peripheral Venous Blood Culture - Preliminary NO GROWTH OBTAINED AFTER 96 HOURS, INCUBATION TO CONTINUE FOR 1 DAYS. 07/14/19 05:50 Urine For Antigen Detection Legionella Antigen - Final 07/14/19 05:50 Urine For Antigen Detection Streptococcus pneumoniae Antigen (M - Final 07/12/19 00:11 Urine - Urine - Catheterized Urine Culture - Final NO GROWTH OBTAINED ASSESSMENT AND PLAN: Patient is an 88 y/of with Pmhx of diastolic dysfunction , HTN, depression, chronic R subdural hematoma , h/o ETOH abuse, R carotid artery stenosis, with a recent admission for PNA , and UTI, during which she had NSVT, was admitted for acute AMS and with acute hypoximia , hypercapnic resp failure. # Acute hypoxic hypercapnic respiratory failure s/p extubation. due to due to PNA, off the Vent. now #S/p PTx ; s/p chest tube , possible removal today ,cardio thoracic is on the case. Dr. Arechiga , further care per ICU # Acute diastolic heart failure; last echo reviewed. on lopressor , will start angiotensin receptor tino , started on Diovan # s/p Septic shock due to PNA: continue Abx , off levophed , monitor ,ID on the case, continue IV antibiotics # Acute PNA: on cefepime , blood cx is neg. # HARJINDER: likely prerenal. improved , monitor cr. no need fro renal US # Acute Hyponatremia: improved # Acute Transaminitis: could be due to sepsis, vs passive liver congestion from heart failure. tylenol level is low. # R pneumothorax s/p TLC per ED: resolved on repeat cxray , repeaT CXR in am # Elevated trop:most likely demand ischemia DVT PX : add heparin SQ Diovan 40mg po daily added
[2019-07-18] MEDS: CHLORHEXIDINE GLUCONATE 4% CLEANSER FOR DECOLONIZATION TP SCH (21:27)
[2019-07-19] MEDS ORDERED: CEFEPIME HCL 1 GM VIAL (RESTRICTED TO ID) ONE ×3 (01:42→18:30)
[2019-07-19] MEDS ORDERED: DEXTROSE 5%-WATER 100 ML IVPB ONE ×3 (01:43→18:30)
[2019-07-19] MEDS: CEFEPIME 1 GM in DEXTROSE 5%-WATER 100 ML IVPB SCH ×3 (01:48→19:02)
[2019-07-19] MEDS: METOPROLOL TARTRATE 25 MG TABLET (FP) PO SCH ×2 (05:29→21:59)
[2019-07-19] MEDS: HEPARIN NA (PORCINE) 5,000 UNITS/ML 1ML VIAL SQ SCH ×3 (06:02→21:59)
[2019-07-19 06:45] LABS: EOS % 1.7 % (0-4.5); HEMATOCRIT 35.2 % (32.4-45.2); HEMOGLOBIN 11.7 GM/dL (10.7-15.3); LYMPH % 14.5 % (8-40); MCH 30.4 pg (25.7-33.7); MCHC 33.4 g/dl (32.0-36.0); MEAN PLT VOLUME 8.8 fl (7.5-11.1); MONO % 10.1 % (3.8-10.2); NEUT % 72.7 % (42.8-82.8); PLATELET COUNT 327 K/MM3 (134-434); RBC 3.86 M/mm3 (3.60-5.2); RDW 13.7 % (11.6-15.6); WHITE BLOOD COUNT 10.6 K/mm3 (4.0-10.0)
[2019-07-19 07:08] LABS: ALBUMIN 2.6 g/dl (3.4-5.0); BILIRUBIN,TOTAL 0.5 mg/dL (0.2-1); BLOOD UREA NITROGEN 21.8 mg/dL (7-18); CALCIUM 8.9 mg/dL (8.5-10.1); CREATININE 0.2 mg/dL (0.55-1.3); MAGNESIUM 2.2 mg/dL (1.8-2.4); PHOSPHOROUS 3.3 mg/dL (2.5-4.9); POTASSIUM 4.1 mmol/L (3.5-5.1); TOT PROT 5.4 g/dl (6.4-8.2)
[2019-07-19] MEDS ORDERED: PT OWN MED DRAWER 7, Y5N ONE (08:08)
[2019-07-19] MEDS: ASPIRIN 81 MG CHEWABLE TABLETS GT SCH (09:03)
[2019-07-19] MEDS ORDERED: VALSARTAN 40 MG TABLET (FP) PO SCH (10:00)
[2019-07-19] MEDS ORDERED: FUROSEMIDE 40 MG/4 ML INJECTABLE VIAL IVPUSH ONE (10:35)
--- NOTE | 2019-07-19 10:51 | PN ---
Teaching Attending Note Name of Resident: Zoila Espinosa ATTENDING PHYSICIAN STATEMENT I saw and evaluated the patient. I reviewed the resident's note and discussed the case with the resident. I agree with the resident's findings and plan as documented. SUBJECTIVE: Pt seen and examined in the ICU. Clinically improving. Denies shortness of breath. No fevers recorded. OBJECTIVE: Vital Signs Period Temp Pulse Resp BP Sys/Da Silva Pulse Ox Last 24 Hr 97.9 F-98.3 F 63-94 22-28 117-158/34-94 97-99 Intake & Output 07/16/19 07/17/19 07/18/19 07/19/19 23:59 23:59 23:59 23:59 Intake Total 1983 200 780 100 Output Total 190 250 Balance 1793 200 780 -150 Weight 52.798 kg 50.258 kg 50.258 kg 43.772 kg Gen: NAD at rest Heart: RRR Lung: decreased breath sounds at the bases Abd: soft, nontender Ext: + edema CBC, BMP 07/19/19 06:00 07/19/19 06:00 Active Medications Acetaminophen (Ofirmev Injection -) 1,000 mg IVPB Q6H PRN PRN Reason: FEVER Last Admin: 07/13/19 21:41 Dose: 1,000 mg Aspirin (Asa -) 81 mg GT DAILY [facility] Last Admin: 07/19/19 09:03 Dose: 81 mg Chlorhexidine Gluconate (Hibiclens For Decolonization -) 1 applic TP HS [facility] Last Admin: 07/18/19 21:27 Dose: 1 applic Heparin Sodium (Porcine) (Heparin -) 5,000 unit SQ TID [facility] Last Admin: 07/19/19 06:02 Dose: 5,000 unit Cefepime HCl 1 gm/ Dextrose 100 mls @ 100 mls/hr IVPB Q8H-IV [facility]; Protocol Last Admin: 07/19/19 09:03 Dose: 100 mls/hr Metoprolol Tartrate (Lopressor -) 25 mg PO TID [facility] Last Admin: 07/19/19 05:29 Dose: Not Given Valsartan (Diovan -) 40 mg PO DAILY [facility] Last Admin: 07/19/19 09:04 Dose: 40 mg ASSESSMENT AND PLAN: Acute Hypoxic and Hypercapneic Respiratory Failure improving Pneumonia Septic Shock resolved Acute Kidney Injury improving Lactic Acidosis resolved +Troponins likely Demand Ischemia Elevated LFTs likely Ischemic Injury Right Pneumothorax s/p chest tube placement LV Diastolic Dysfunction Chronic Subdural Hematoma - continue antibiotics - lasix today - monitor urine output, creatinine - off pressors, maintain MAP >65 - PO as tolerated - aspiration precautions - DVT prophylaxis - can monitor on floor
--- NOTE | 2019-07-19 12:41 | PN ---
Teaching Attending Note Name of Resident: Enrrique Lin ATTENDING PHYSICIAN STATEMENT I saw and evaluated the patient. I reviewed the resident's note and discussed the case with the resident. I agree with the resident's findings and plan as documented. SUBJECTIVE: Patient is comfortable with no acute distress. saturating well with and without oxygen . Vital Signs Temperature 98 F 07/19/19 07:25 Pulse Rate 24 L 07/19/19 12:00 Respiratory Rate 82 H 07/19/19 12:00 Blood Pressure 154/52 L 07/19/19 12:00 O2 Sat by Pulse Oximetry (%) 99 07/19/19 11:15 GENERAL: The patient extubated, on 2 liter oxygen HEAD: Normal with no signs of trauma. EYES:round small pupils, reactive to light ENT: Ears normal, oropharynx clear without exudates, moist mucous membranes. NECK: Trachea midline, full range of motion, supple. LUNGS: extubated s/p intubation. on the vent with chest tube on water seal HEART: RRR, 2/6 SM at apex which is heard louder in L axilla. 3/6 SM heard in back. No JVD ABDOMEN: Soft, soft, hypoactive BS. EXTREMITIES: 2+ pulses, warm, well-perfused, 2+ pitting edemas NEUROLOGICAL: Cranial nerves II through XII grossly intact. gait not observed. SKIN: Warm, dry, normal turgor, no rashes or lesions noted CBCD WBC 10.6 K/mm3 (4.0-10.0) H 07/19/19 06:00 RBC 3.86 M/mm3 (3.60-5.2) 07/19/19 06:00 Hgb 11.7 GM/dL (10.7-15.3) 07/19/19 06:00 Hct 35.2 % (32.4-45.2) 07/19/19 06:00 MCV 91.0 fl (80-96) 07/19/19 06:00 MCHC 33.4 g/dl (32.0-36.0) 07/19/19 06:00 RDW 13.7 % (11.6-15.6) 07/19/19 06:00 Plt Count 327 K/MM3 (134-434) 07/19/19 06:00 MPV 8.8 fl (7.5-11.1) 07/19/19 06:00 CMP Sodium 144 mmol/L (136-145) 07/19/19 06:00 Potassium 4.1 mmol/L (3.5-5.1) 07/19/19 06:00 Chloride 107 mmol/L (98-107) 07/19/19 06:00 Carbon Dioxide 30 mmol/L (21-32) 07/19/19 06:00 Anion Gap 6 MMOL/L (8-16) L 07/19/19 06:00 BUN 21.8 mg/dL (7-18) H 07/19/19 06:00 Creatinine 0.2 mg/dL (0.55-1.3) L 07/19/19 06:00 Random Glucose 88 mg/dL (74-106) 07/19/19 06:00 Calcium 8.9 mg/dL (8.5-10.1) 07/19/19 06:00 Total Bilirubin 0.5 mg/dL (0.2-1) 07/19/19 06:00 AST 29 U/L (15-37) 07/19/19 06:00 ALT 114 U/L (13-61) H 07/19/19 06:00 Alkaline Phosphatase 117 U/L (45-117) 07/19/19 06:00 Total Protein 5.4 g/dl (6.4-8.2) L 07/19/19 06:00 Albumin 2.6 g/dl (3.4-5.0) L 07/19/19 06:00 CARDIAC ENZYMES Creatine Kinase 100 U/L (26-192) 07/13/19 05:45 Troponin I 0.36 ng/ml (0.00-0.05) H 07/13/19 05:45 Current Medications Generic Name Dose Route Start Last Admin Trade Name Freq PRN Reason Stop Dose Admin Acetaminophen 1,000 mg 07/13/19 21:33 07/13/19 21:41 Ofirmev Injection - IVPB 1,000 mg Q6H PRN Administration FEVER Aspirin 81 mg 07/16/19 14:00 07/19/19 09:03 Asa - GT 81 mg DAILY [facility] Administration Chlorhexidine Gluconate 1 applic 07/12/19 22:00 07/18/19 21:27 Hibiclens For Decolonization - TP 1 applic HS [facility] Administration Heparin Sodium (Porcine) 5,000 unit 12/17/19 14:00 07/19/19 06:02 Heparin - SQ 5,000 unit TID [facility] Administration Cefepime HCl 1 gm/ Dextrose 100 mls @ 100 mls/hr 07/12/19 18:00 07/19/19 09: 03 IVPB 100 mls/hr Q8H-IV [facility] Administration Protocol Metoprolol Tartrate 25 mg 07/17/19 14:00 07/19/19 05:29 Lopressor - PO Not Given TID [facility] Valsartan 40 mg 07/19/19 10:00 07/19/19 09:04 Diovan - PO 40 mg DAILY [facility] Administration Home Medications Medication Instructions Recorded LORazepam [Lorazepam] 0.5 mg PO TID 07/07/19 Sertraline HCl 50 mg PO DAILY 07/07/19 traZODone HCL [Trazodone HCl] 50 mg PO DAILY 07/07/19 Acetaminophen [Tylenol 1,000 mg PO Q6H PRN #0 tablet 07/08/19 .Extra-Strength -] Calcium 500Mg/Vit-D 200 Units 1 tab PO BID 30 Days #60 tab 07/08/19 [Os-Silvio 500+D -] Metoprolol Succinate [Toprol XL -] 25 mg PO DAILY 30 Days #30 07/08/19 tab.sr.24h Amox-Tr/K Cl [Augmentin - 875Mg 1 tab PO BID #14 tablet 07/09/19 Tablet] Microbiology 07/13/19 18:30 Sputum - Endotrachea Suction/Ventilator Gram Stain - Final 07/13/19 18:30 Sputum - Endotrachea Suction/Ventilator Sputum Culture - Final Yeast Like Organism 07/12/19 00:11 Blood - Peripheral Venous Blood Culture - Preliminary NO GROWTH OBTAINED AFTER 96 HOURS, INCUBATION TO CONTINUE FOR 1 DAYS. 07/12/19 00:30 Blood - Peripheral Venous Blood Culture - Preliminary NO GROWTH OBTAINED AFTER 96 HOURS, INCUBATION TO CONTINUE FOR 1 DAYS. 07/14/19 05:50 Urine For Antigen Detection Legionella Antigen - Final 07/14/19 05:50 Urine For Antigen Detection Streptococcus pneumoniae Antigen (M - Final 07/12/19 00:11 Urine - Urine - Catheterized Urine Culture - Final NO GROWTH OBTAINED ASSESSMENT AND PLAN: Patient is an 88 y/of with Pmhx of diastolic dysfunction , HTN, depression, chronic R subdural hematoma , h/o ETOH abuse, R carotid artery stenosis, with a recent admission for PNA , and UTI, during which she had NSVT, was admitted for acute AMS and with acute hypoximia , hypercapnic resp failure. # Acute hypoxic hypercapnic respiratory failure s/p extubation. due to due to PNA, off the Vent. now #S/p PTx ; s/p chest tube , removed yessterday # Acute diastolic heart failure; last echo reviewed. on lopressor , started on Diovan 40mg po daily , angiotensin receptor tino. # s/p Septic shock due to PNA: continue Abx , off levophed , monitor ,ID on the case, continue IV antibiotics # Acute PNA: on cefepime , blood cx is neg. # HARJINDER: likely prerenal. improved , monitor cr. no need for renal US # Acute Hyponatremia: improved # Acute Transaminitis: could be due to sepsis, vs passive liver congestion from heart failure. tylenol level is low. # R pneumothorax s/p TLC per ED: resolved on repeat cxray , repeaT CXR in am # Elevated trop:most likely demand ischemia DVT PX : add heparin SQ
[2019-07-19] MEDS ORDERED: ACETAMINOPHEN 1000 MG/100 ML VIAL (NON FORMULARY) IVPB PRN (13:53)
[2019-07-19] MEDS ORDERED: METOPROLOL TARTRATE 25 MG TABLET (FP) PO SCH (14:00)
--- NOTE | 2019-07-19 14:06 | PN ---
Progress Note, Physician History of Present Illness: Dyspnea improved, maintained on NC, right chest tube d/nadia. - Current Medication List Current Medications: Active Medications Acetaminophen (Ofirmev Injection -) 1,000 mg IVPB Q6H PRN PRN Reason: FEVER Aspirin (Asa -) 81 mg GT DAILY [facility] Chlorhexidine Gluconate (Hibiclens For Decolonization -) 1 applic TP HS [facility] Heparin Sodium (Porcine) (Heparin -) 5,000 unit SQ TID [facility] Cefepime HCl 1 gm/ Dextrose 100 mls @ 100 mls/hr IVPB Q8H-IV [facility]; Protocol Metoprolol Tartrate (Lopressor -) 25 mg PO TID [facility] Valsartan (Diovan -) 40 mg PO DAILY [facility] - Objective Vital Signs: Vital Signs Temperature 98 F 07/19/19 07:25 Pulse Rate 24 L 07/19/19 12:00 Respiratory Rate 82 H 07/19/19 12:00 Blood Pressure 154/52 L 07/19/19 12:00 O2 Sat by Pulse Oximetry (%) 99 07/19/19 11:15 Constitutional: Yes: No Distress, Calm, Thin Neck: Yes: Supple Cardiovascular: Yes: Regular Rate and Rhythm, Other (with ectopy) Respiratory: Yes: Regular, Diminished, On Nasal O2 Gastrointestinal: Yes: Normal Bowel Sounds, Soft Edema: No Labs: CBC, BMP 07/19/19 06:00 07/19/19 06:00 INR, PTT INR 1.34 (0.83-1.09) H 07/12/19 06:00 Problem List - Problems (1) Respiratory failure Code(s): J96.90 - RESPIRATORY FAILURE, UNSP, UNSP W HYPOXIA OR HYPERCAPNIA Qualifiers: Chronicity: acute Respiratory failure complication: hypoxia and hypercapnia Qualified Code(s): J96.01 - Acute respiratory failure with hypoxia ; J96.02 - Acute respiratory failure with hypercapnia (2) Diastolic dysfunction Code(s): I51.89 - OTHER ILL-DEFINED HEART DISEASES (3) Demand ischemia Code(s): I24.8 - OTHER FORMS OF ACUTE ISCHEMIC HEART DISEASE (4) Ischemic hepatitis Code(s): K75.9 - INFLAMMATORY LIVER DISEASE, UNSPECIFIED (5) Septic shock Code(s): A41.9 - SEPSIS, UNSPECIFIED ORGANISM; R65.21 - SEVERE SEPSIS WITH SEPTIC SHOCK (6) Iatrogenic pneumothorax Code(s): J95.811 - POSTPROCEDURAL PNEUMOTHORAX Assessment/Plan 07/12/2019 echo: Normal biventrucular size and fxn, mod MR, AR 1. Post Acute Hypoxic and Hypercapneic Respiratory Failure 2. Pneumonia 3. Post Septic Shock 4. Coronary artery disease with demand ischemic injury angina pectoris/elevated troponin I level related to sepsis syndrome 5. Diastolic left ventricular dysfunction with clinical class 0-I [place] [employer] classification left ventricular failure/elevated B-type natriuretic peptide- most likely related to sepsis syndrome 6. Hypertensive cardiovascular disease, hypotension related to the above-noted sepsis syndrome 7. History of non-sustained ventricular tachycardia 8. Aortic valve regurgitation 9. Tricuspid valve regurgitation with moderate degree of pulmonary hypertension 10. History of carotid stenosis, moderate in severity 11. Iatrogenic pneumothorax post right chest tube insertion/complication of subclavian line insertion 12. Abnormal liver function testing trending down, likely shock liver 13. Hyponatremia resolved 14. Chronic Subdural Hematoma 15. 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 Complete antibiotics per C&S 2. Agree with ASA 81 qd, increased metoprolol 50 bid, started Diovan 40 qd, hemodynamics permitting 3. Wean FIO2 to maintain saO2, diet as tolerated 4. DVT/GI prophylaxis 5. PT as tolerated
--- NOTE | 2019-07-19 14:11 | PN ---
Physical Exam: SUBJECTIVE: Patient seen and examined. No acute events overnight. OBJECTIVE: Vital Signs Period Temp Pulse Resp BP Sys/Da Silva Pulse Ox Last 24 Hr 97.9 F-98.3 F 24-84 22-82 117-158/34-94 97-99 GENERAL: AOx3 NAD LUNGS: Decreased breath sounds at b/l bases. HEART: RRR S1S2 heard no murmurs ABDOMEN: Soft NTND. + BS EXTREMITIES: 2+ pulses, warm, well-perfused, no edema. NEUROLOGICAL: nonfocal exam PSYCH: Normal mood, normal affect. SKIN: RUE bruising, healing. Chest tube insertion site C/D/I no signs of infection, removed yesterday Laboratory Results - last 24 hr 07/18/19 07/19/19 07/19/19 18:33 06:00 06:00 WBC 10.6 H RBC 3.86 Hgb 11.7 Hct 35.2 MCV 91.0 MCH 30.4 MCHC 33.4 RDW 13.7 Plt Count 327 MPV 8.8 Absolute Neuts (auto) 7.7 Neutrophils % 72.7 Lymphocytes % 14.5 D Monocytes % 10.1 Eosinophils % 1.7 D Basophils % 1.0 Nucleated RBC % 0 Sodium 144 Potassium 4.1 Chloride 107 Carbon Dioxide 30 Anion Gap 6 L BUN 21.8 H Creatinine 0.2 L Est GFR (CKD-EPI)AfAm 137.30 Est GFR (CKD-EPI)NonAf 118.47 POC Glucometer 131 Random Glucose 88 Calcium 8.9 Phosphorus 3.3 Magnesium 2.2 Total Bilirubin 0.5 AST 29 ALT 114 H Alkaline Phosphatase 117 Total Protein 5.4 L Albumin 2.6 L Active Medications Generic Name Dose Route Start Last Admin Trade Name Freq PRN Reason Stop Dose Admin Acetaminophen 1,000 mg 07/19/19 13:53 Ofirmev Injection - IVPB Q6H PRN FEVER Aspirin 81 mg 07/20/19 10:00 Asa - GT DAILY [facility] Chlorhexidine Gluconate 1 applic 07/19/19 22:00 Hibiclens For Decolonization - TP HS [facility] Heparin Sodium (Porcine) 5,000 unit 07/19/19 14:00 Heparin - SQ TID [facility] Cefepime HCl 1 gm/ Dextrose 100 mls @ 100 mls/hr 07/19/19 18:00 IVPB Q8H-IV [facility] Protocol Metoprolol Tartrate 25 mg 07/19/19 14:00 Lopressor - PO TID [facility] Valsartan 40 mg 07/20/19 10:00 Diovan - PO DAILY [facility] ASSESSMENT/PLAN: 88 y.o. F PMH HTN, recurring falls, depression, diastolic HFpEF, aortic stenosis , CCA stenosis, alcohol abuse, recently d/c'd 07/10/19 2/2 PNA, presenting with acute hypoxic hypercarbic respiratory failure 2/2 PNA. #Neuro -AOx3 -hx of depression #CV -PSVT episodes on tele, continue to monitor, no need for tele as per cardio -Echo 07/07/19: EF 55-60%, mild MR, pulm HTN, & AR -EKG NSR no ST changes -maintain map >65 -Cardio Dr. Goddard/ Dr. Beck following -c/w daily aspirin, resume metoprolol 25mg bid, start skyler/arb once permitting #Pulm -Extubated, chest tube removed eysterday -Satting well on 2L NC -CXR today unchanged from prior study -Giving lasix today; monitor outputs #Renal -HARJINDER, resolved -monitor Cr #GI -LFTs downtrending -follow bmp #Heme/Onc -Leukocytosis 2/2 PNA resolved -Blood cx's neg # -Mills; monitor outputs #ID -C/w abx cefepime -legionella ag negative -ID following #PPX -Heparin SQ #FEN -no standing fluids -trend lytes replete prn -tolerating PO #Dispo med surg, PT eval Visit type - Emergency Visit Emergency Visit: No - New Patient This patient is new to me today: No - Critical Care Critical Care patient: Yes Total Critical Care Time (in minutes): 36 Critical Care Statement: The care of this patient involved high complexity decision making to prevent further life threatening deterioration of the patient 's condition and/or to evaluate & treat vital organ system(s) failure or risk of failure. ATTENDING PHYSICIAN STATEMENT I saw and evaluated the patient. I reviewed the resident's note and discussed the case with the resident. I agree with the resident's findings and plan as documented. SUBJECTIVE: OBJECTIVE: ASSESSMENT AND PLAN:
--- NOTE | 2019-07-19 16:10 | PN ---
Physical Exam: SUBJECTIVE: Patient seen and examined at bedside in ICU. Transfer to floors pending. Patient tolerated extubatation well and tolerating 4 L NC. Pre and post today. Chest tube removed. No present complaints, no events overnight. Patient denies chest pain. OBJECTIVE: Vital Signs Period Temp Pulse Resp BP Sys/Da Silva Pulse Ox Last 24 Hr 97.9 F-99.3 F 24-84 22-82 117-158/34-94 97-99 GENERAL: AOx3, in no acute distress HEAD: NC. 3 cm healed, vertical laceration on RIGHT baptism EYES: NELSON, EOMI, conjunctiva clear. ENT: Ears normal, nares patent, oropharynx clear without exudates. Moist mucous membranes. NECK: Normal range of motion, supple without lymphadenopathy, JVD, or masses. LUNGS: CTAB. No wheezes, and no crackles. No accessory muscle use. HEART: RRR s1 s2. 2/6 systolic murmur radiating to back. ABDOMEN: Soft, BS present in all 4 quadrants, non-distended, no JVD, MUSCULOSKELETAL: Kyphosis. Left hand contracted (chronic). No CVA tenderness. UPPER EXTREMITIES: 2+ pulses, warm, well-perfused. No cyanosis. No clubbing. No peripheral edema. LOWER EXTREMITIES: 2+ pulses, warm, well-perfused. No calf tenderness. No peripheral edema. NEUROLOGICAL: No focal deficits. Cranial nerves II-XII intact. Normal speech. PSYCHIATRIC: Cooperative. Good eye contact. Appropriate mood and affect. SKIN: x5 RUE ecchymosis. Echymosis on flexor surface of RUE. Warm, dry, normal turgor, normal capillary refill. Laboratory Results - last 24 hr 07/18/19 07/19/19 07/19/19 18:33 06:00 06:00 WBC 10.6 H RBC 3.86 Hgb 11.7 Hct 35.2 MCV 91.0 MCH 30.4 MCHC 33.4 RDW 13.7 Plt Count 327 MPV 8.8 Absolute Neuts (auto) 7.7 Neutrophils % 72.7 Lymphocytes % 14.5 D Monocytes % 10.1 Eosinophils % 1.7 D Basophils % 1.0 Nucleated RBC % 0 Sodium 144 Potassium 4.1 Chloride 107 Carbon Dioxide 30 Anion Gap 6 L BUN 21.8 H Creatinine 0.2 L Est GFR (CKD-EPI)AfAm 137.30 Est GFR (CKD-EPI)NonAf 118.47 POC Glucometer 131 Random Glucose 88 Calcium 8.9 Phosphorus 3.3 Magnesium 2.2 Total Bilirubin 0.5 AST 29 ALT 114 H Alkaline Phosphatase 117 Total Protein 5.4 L Albumin 2.6 L Active Medications Generic Name Dose Route Start Last Admin Trade Name Freq PRN Reason Stop Dose Admin Acetaminophen 1,000 mg 07/19/19 13:53 Ofirmev Injection - IVPB Q6H PRN FEVER Aspirin 81 mg 07/20/19 10:00 Asa - GT DAILY [facility] Chlorhexidine Gluconate 1 applic 07/19/19 22:00 Hibiclens For Decolonization - TP HS [facility] Heparin Sodium (Porcine) 5,000 unit 07/19/19 14:00 07/19/19 14:15 Heparin - SQ 5,000 unit TID [facility] Administration Cefepime HCl 1 gm/ Dextrose 100 mls @ 100 mls/hr 07/19/19 18:00 IVPB Q8H-IV [facility] Protocol Metoprolol Tartrate 50 mg 07/19/19 22:00 Lopressor - PO BID [facility] Valsartan 40 mg 07/20/19 10:00 Diovan - PO DAILY [facility] Head CT : negative for acute intracranial pathology Chest CT:Small right pneumothorax, approximately 10-15%Small bilateral pleural effusions with bilateral compression atelectasis, Patchy infiltrates within the right upper lobe ASSESSMENT/PLAN: 88 y/o female PMH HTN, HFpEF, depression, chronic RIGHT subdural hematoma, ETOH abuse, RIGHT carotid artery stenosis, and recent admission for PNA and UTI. Pt brought to hospital after lack of responsiveness and desaturating to the 80s. She was admitted for care of acute hypoxic, hypercapnic respiratory failure. She is off ventilatory support and no longer has chest tube in place. # Acute hypoxic, hypercapnic respiratory failure: Physiologic changes of sepsis vs PNA vs exacerbation of HF - Stable today. Acute issues resolved. Plan to continue to monitor on telemetry prior to discharge. - Lasix, monitor i/o - Diastolic left ventricular dysfunction with clinical class 0-I [place] [employer] classification left ventricular failure/elevated B-type natriuretic peptide- most likely related to sepsis syndrome. Moderate pulmonary HTN. - Flu swab NEGATIVE - Continue cefepime 1 g IV q8h, dc vanc (day 8) - F/u sputum culture - F/u urinary antigens - 3 mcq NE for hemodynamic support, maintain MAP > 65 - Repeat echo: mitral valve regurg, aortic regurg. Echo done 07/07/19: EF 55-60% , mild MR, pulm HTN, & AR - Urine culture NEGATIVE - Blood culture NEGATIVE - F/u urine tox # HTN - Metoprolol 25 bid per cardiology recommendation - Start JOHANNA inhibitor or angiotensin receptor tino therapy, hemodynamics permitting # HARJINDER - Improving BUN/Cr 9.5/0.3. Previously 11.4/0.3 - Low cr likely 2/2 low muscle mass - Avoid aggressive hydration # Hyponatremia, resolved - HF vs poor po intake - F/u urine electrolytes: high urineurea nitrogen 545 - I/o - Daily weights # Transaminitis: hypotension vs toxicity vs sepsis vs liver congestion 2/2 heart failure - Repeat liver function improved 132/309 - Likely ischemic hepatitis - US of liver: fatty liver VS hepatocellular disease. 8x9 possible cyst in pancreatic head. Recommend MRI. - Acetominophen level 5.2, WNL # Sepsis with septic shock: Likely due to PNA - Was treated with levophed - Dc vancomycin - Continue Cefepime 1 gm IV q8h # RIGHT pneumothorax - Resolved on repeat CXR - F/u CXR in AM # Troponemia - 0.88 -> 0.93 -> 0.36 - Likely 2/2 sepsis (demand ischemia, hypoxia) - EKG with new inverted TWI anterioseptal leads and L axis deviation which are new compared to EKG form last admission (possible NSTEMI) - Cardiology concurs, likely 2/2 demand in setting of sepsis > ASA 81 mg QD, Metoprolol 25 mg TID and start JOHANNA inhibitor or angiotensin receptor tino therapy if hemodynamics permit # Leukocytosis, resolved - WBC 10.6 - PNA vs left shift # Hypophosphatemia, resolved - NL today - Repleted with K phos 30 mg IV on Jul 14 # F/E/N - NS @ 83mL/hr - Cont. to monitor - Thin liquids # DVT prophylaxis - Heparin SQ # Disposition - Full code - Transfer to telemetry today Enrrique Lin MD Visit type - Emergency Visit Emergency Visit: No - New Patient This patient is new to me today: No - Critical Care Critical Care patient: No ATTENDING PHYSICIAN STATEMENT I saw and evaluated the patient. I reviewed the resident's note and discussed the case with the resident. I agree with the resident's findings and plan as documented. SUBJECTIVE: OBJECTIVE: ASSESSMENT AND PLAN:
[2019-07-19] MEDS ORDERED: CHLORHEXIDINE GLUCONATE 4% CLEANSER FOR DECOLONIZATION TP SCH (22:00)
[2019-07-20] MEDS ORDERED: CEFEPIME HCL 1 GM VIAL (RESTRICTED TO ID) ONE ×3 (02:02→17:37)
[2019-07-20] MEDS ORDERED: DEXTROSE 5%-WATER 100 ML IVPB ONE ×3 (02:02→17:37)
[2019-07-20] MEDS: CEFEPIME 1 GM in DEXTROSE 5%-WATER 100 ML IVPB SCH ×3 (02:11→17:43)
[2019-07-20] MEDS: HEPARIN NA (PORCINE) 5,000 UNITS/ML 1ML VIAL SQ SCH ×3 (05:56→21:50)
[2019-07-20 08:37] LABS: BASO % 1.4 % (0-2.0); EOS % 0.8 % (0-4.5); HEMATOCRIT 37.7 % (32.4-45.2); HEMOGLOBIN 12.3 GM/dL (10.7-15.3); LYMPH % 14.5 % (8-40); MCH 29.9 pg (25.7-33.7); MCHC 32.5 g/dl (32.0-36.0); MEAN CELL VOLUME 91.9 fl (80-96); MEAN PLT VOLUME 8.9 fl (7.5-11.1); MONO % 10.6 % (3.8-10.2); NEUT % 72.7 % (42.8-82.8); PLATELET COUNT 356 K/MM3 (134-434); RBC 4.11 M/mm3 (3.60-5.2); RDW 13.5 % (11.6-15.6); WHITE BLOOD COUNT 10.2 K/mm3 (4.0-10.0)
[2019-07-20 09:13] LABS: ALBUMIN 2.7 g/dl (3.4-5.0); BILIRUBIN,TOTAL 0.5 mg/dL (0.2-1); CALCIUM 8.8 mg/dL (8.5-10.1); CREATININE 0.2 mg/dL (0.55-1.3); PHOSPHOROUS 3.2 mg/dL (2.5-4.9); POTASSIUM 3.7 mmol/L (3.5-5.1); TOT PROT 5.3 g/dl (6.4-8.2)
[2019-07-20] MEDS: VALSARTAN 40 MG TABLET (FP) PO SCH (10:57)
[2019-07-20] MEDS: METOPROLOL TARTRATE 25 MG TABLET (FP) PO SCH ×2 (10:57→21:50)
[2019-07-20] MEDS: ASPIRIN 81 MG CHEWABLE TABLETS GT SCH (10:57)
--- NOTE | 2019-07-20 11:01 | PN ---
Progress Note (short form) - Note Progress Note: Resting in NAD on NC O2. Reports breathing is better. No acute events overnight. Intake & Output 07/17/19 07/18/19 07/19/19 07/20/19 23:59 23:59 23:59 23:59 Intake Total 200 780 850 330 Output Total 250 Balance 200 780 600 330 Weight 110 lb 12.8 oz 110 lb 12.8 oz 96 lb 8 oz 95 lb 5 oz Last Vital Signs Temp Pulse Resp BP Pulse Ox 97.6 F 83 20 144/55 L 96 07/20/19 06:38 07/20/19 06:38 07/20/19 06:38 07/20/19 06:38 07/19/19 21:00 Active Medications Acetaminophen (Ofirmev Injection -) 1,000 mg IVPB Q6H PRN PRN Reason: FEVER Aspirin (Asa -) 81 mg GT DAILY [facility] Last Admin: 07/20/19 10:57 Dose: 81 mg Chlorhexidine Gluconate (Hibiclens For Decolonization -) 1 applic TP HS [facility] Heparin Sodium (Porcine) (Heparin -) 5,000 unit SQ TID [facility] Last Admin: 07/20/19 05:56 Dose: 5,000 unit Cefepime HCl 1 gm/ Dextrose 100 mls @ 100 mls/hr IVPB Q8H-IV [facility]; Protocol Last Admin: 07/20/19 10:56 Dose: 100 mls/hr Metoprolol Tartrate (Lopressor -) 50 mg PO BID [facility] Last Admin: 07/20/19 10:57 Dose: 50 mg Valsartan (Diovan -) 40 mg PO DAILY [facility] Last Admin: 07/20/19 10:57 Dose: 40 mg Gen: Awake and alert, NAD at rest Heart: RRR Lung: decreased breath sounds at the bases Abd: soft, nontender Ext: + edema Laboratory Results - last 24 hr 07/20/19 07/20/19 07:05 07:05 WBC 10.2 H RBC 4.11 Hgb 12.3 Hct 37.7 MCV 91.9 MCH 29.9 MCHC 32.5 RDW 13.5 Plt Count 356 MPV 8.9 Absolute Neuts (auto) 7.4 Neutrophils % 72.7 Lymphocytes % 14.5 Monocytes % 10.6 H Eosinophils % 0.8 Basophils % 1.4 Nucleated RBC % 0 Sodium 144 Potassium 3.7 Chloride 103 Carbon Dioxide 34 H Anion Gap 6 L BUN 20.0 H Creatinine 0.2 L Est GFR (CKD-EPI)AfAm 137.30 Est GFR (CKD-EPI)NonAf 118.47 Random Glucose 89 Calcium 8.8 Phosphorus 3.2 Magnesium 2.0 Total Bilirubin 0.5 AST 29 ALT 95 H Alkaline Phosphatase 110 Total Protein 5.3 L Albumin 2.7 L ASSESSMENT AND PLAN: Acute Hypoxic and Hypercapneic Respiratory Failure improving Pneumonia Septic Shock resolved Acute Kidney Injury improving Lactic Acidosis resolved +Troponins likely Demand Ischemia Elevated LFTs likely Ischemic Injury Right Pneumothorax s/p chest tube placement LV Diastolic Dysfunction Chronic Subdural Hematoma - ABX per ID - PO as tolerated - aspiration precautions - DVT prophylaxis Dr Pemberton
--- NOTE | 2019-07-20 17:53 | PN ---
Progress Note (short form) - Note Progress Note: Subjective: No fever or chills. She feels much better . No cough, no SOB , no CP , no diarrhea . daughter at bedside admits to finding her mom much better. reports L UE and RLE to be weak since an admission to [facility] 2 years ago. she was not diagnosed with CVA. L hand is contracted. Objective: Vital Signs: Last Vital Signs Temp Pulse Resp BP Pulse Ox 99.2 F 73 20 124/49 L 93 L 07/20/19 14:00 07/20/19 14:00 07/20/19 14:00 07/20/19 14:00 07/20/19 14:45 Laboratory Results - last 24 hr 07/20/19 07/20/19 07:05 07:05 WBC 10.2 H RBC 4.11 Hgb 12.3 Hct 37.7 MCV 91.9 MCH 29.9 MCHC 32.5 RDW 13.5 Plt Count 356 MPV 8.9 Absolute Neuts (auto) 7.4 Neutrophils % 72.7 Lymphocytes % 14.5 Monocytes % 10.6 H Eosinophils % 0.8 Basophils % 1.4 Nucleated RBC % 0 Sodium 144 Potassium 3.7 Chloride 103 Carbon Dioxide 34 H Anion Gap 6 L BUN 20.0 H Creatinine 0.2 L Est GFR (CKD-EPI)AfAm 137.30 Est GFR (CKD-EPI)NonAf 118.47 Random Glucose 89 Calcium 8.8 Phosphorus 3.2 Magnesium 2.0 Total Bilirubin 0.5 AST 29 ALT 95 H Alkaline Phosphatase 110 Total Protein 5.3 L Albumin 2.7 L Physical Exam: NAD, awke, hard of hearing CV: RRR, 3/7 Sm at base and 2/6 SM at apex and L axilla. No JVD Lungs: decreased breath sounds at bases otherwise clear Abd: ND, NT, nL BS . soft Ext : trace edema on feet . no erythema . RUE edema 2+ . ASSESSMENT AND PLAN: 88 y/o lady with h/o diastolic dysfunction , HTN, depression, chronic R subdural hematoma , h/o ETOH abuse, R carotid artery stenosis, and recent admission for PNA , and UTI, during which she had NSVT, who was brought from home due to AMS and was found to have acute hypoxic , hypercapnic resp failure.with septic shock from PNA 1- S/p Acute hypoxic resp failure 2- PNA 3- acute diastolic heart failure 4- iatrogenic pneumothorax 5- Pleural effusions 6- HARJINDER: resolved 7- Transaminitis: due to shocked liver . improved 8- Hyponatremia 9- NSTEMI . 10 - h/o NSVT plan : - day 9 of Abx. leukocytosis improved. no fever. blood cx neg. dc Abx. - received lasix today. monitor for today - cont ASa, diovan and BB - cxray reviewed. - d/w daughter placement in rehab for safe dc. family will think about it but will probbaly plan for home with home PT or hiring their private therapist - does not require O2 at rest. will perform Pre-Post possible dc tomorrow Visit type - Emergency Visit Emergency Visit: Yes ED Registration Date: 07/11/19 Care time: The patient presented to the Emergency Department on the above date and was hospitalized for further evaluation of their emergent condition. - New Patient This patient is new to me today: No - Critical Care Critical Care patient: No
[2019-07-21] MEDS ORDERED: MELATONIN 5 MG TABLETS PO ONE (04:42)
[2019-07-21] MEDS: HEPARIN NA (PORCINE) 5,000 UNITS/ML 1ML VIAL SQ SCH ×3 (05:25→21:36)
[2019-07-21 08:09] LABS: BASO % 0.7 % (0-2.0); EOS % 0.4 % (0-4.5); HEMATOCRIT 43.5 % (32.4-45.2); HEMOGLOBIN 13.9 GM/dL (10.7-15.3); MCH 29.4 pg (25.7-33.7); MEAN CELL VOLUME 91.9 fl (80-96); MEAN PLT VOLUME 9.1 fl (7.5-11.1); MONO % 7.4 % (3.8-10.2); NEUT % 82.5 % (42.8-82.8); PLATELET COUNT 395 K/MM3 (134-434); RBC 4.73 M/mm3 (3.60-5.2); RDW 13.6 % (11.6-15.6); WHITE BLOOD COUNT 12.2 K/mm3 (4.0-10.0)
[2019-07-21] MEDS ORDERED: FUROSEMIDE 40 MG/4 ML INJECTABLE VIAL IVPUSH ONE (08:25)
[2019-07-21 08:47] LABS: ARTERIAL BLD GAS O2 SATURATION 99.4 % (95-98); ARTERIAL BLOOD GAS BASE EXCESS 8.7 meq/l (-2-2); ARTERIAL BLOOD GAS PCO2 61.6 mmHg (35-45); ARTERIAL BLOOD GAS PO2 204 mmHg (80-100); ARTERIAL BLOOD GAS pH 7.38 (7.35-7.45)
[2019-07-21 08:51] LABS: ALLENS TEST POSITIVE
[2019-07-21] MEDS: VALSARTAN 40 MG TABLET (FP) PO SCH (09:05)
[2019-07-21] MEDS: ASPIRIN 81 MG CHEWABLE TABLETS GT SCH (09:05)
[2019-07-21] MEDS: METOPROLOL TARTRATE 25 MG TABLET (FP) PO SCH ×2 (09:06→21:36)
--- NOTE | 2019-07-21 11:57 | PN ---
Progress Note, [employer]IVITY [employer]ID - Note Progress Note: Selected Entries 07/19/19 07/19/19 07/19/19 02:00 06:00 07:25 Breakfast Lunch Supper Temperature 98.1 F 97.9 F 98 F 07/19/19 07/19/19 07/19/19 13:30 16:00 17:25 Breakfast Lunch Supper 50% Temperature 99.3 F 98.7 F 07/19/19 07/19/19 07/20/19 18:00 20:00 02:24 Breakfast Lunch Supper Temperature 98.5 F 98.3 F 98.2 F 07/20/19 07/20/19 07/20/19 06:38 10:00 14:00 Breakfast 25% Lunch 25% Supper Temperature 97.6 F 98.1 F 99.2 F 07/20/19 07/20/19 07/21/19 18:00 21:50 02:08 Breakfast Lunch Supper 25% Temperature 98.3 F 98.8 F 98.5 F 07/21/19 10:43 Breakfast Lunch Supper Temperature 98.3 F Laboratory Tests 07/19/19 07/20/19 07/21/19 06:00 07:05 06:55 WBC 10.6 H 10.2 H 12.2 H CXR-Progressive Right infiltrate Pt was on BIPAP. RT placed her on NC, with o2 sat at 94. Breathing seemed comfortable. Voice is euphonic. 3 oz water test (-) Overtly, pt seems to tolerate PO trials. If aspiration is suspected, consider MBS to r/o silent aspiration.
--- NOTE | 2019-07-21 13:22 | PN ---
Progress Note, Physician History of Present Illness: Dyspnea improved, maintained on NC. - Current Medication List Current Medications: Active Medications Aspirin (Asa -) 81 mg GT DAILY [facility] Last Admin: 07/21/19 09:05 Dose: 81 mg Heparin Sodium (Porcine) (Heparin -) 5,000 unit SQ TID [facility] Last Admin: 07/21/19 05:25 Dose: 5,000 unit Metoprolol Tartrate (Lopressor -) 50 mg PO BID [facility] Last Admin: 07/21/19 09:06 Dose: 50 mg Valsartan (Diovan -) 40 mg PO DAILY [facility] Last Admin: 07/21/19 09:05 Dose: 40 mg - Objective Vital Signs: Vital Signs Temperature 98.3 F 07/21/19 10:43 Pulse Rate 92 H 07/21/19 09:02 Respiratory Rate 35 H 07/21/19 09:02 Blood Pressure 129/50 L 07/21/19 09:02 O2 Sat by Pulse Oximetry (%) 94 L 07/21/19 12:20 Constitutional: Yes: No Distress, Calm, Thin Neck: Yes: Supple Cardiovascular: Yes: Regular Rate and Rhythm, Murmur (2/6 SM) Respiratory: Yes: Regular, Diminished, On Nasal O2 Gastrointestinal: Yes: Normal Bowel Sounds, Soft Edema: No Labs: CBC, BMP 07/21/19 06:55 07/20/19 07:05 INR, PTT INR 1.34 (0.83-1.09) H 07/12/19 06:00 - ....Imaging Chest X-ray: Report Reviewed (Right base infiltrate) Problem List - Problems (1) Respiratory failure Code(s): J96.90 - RESPIRATORY FAILURE, UNSP, UNSP W HYPOXIA OR HYPERCAPNIA Qualifiers: Chronicity: acute Respiratory failure complication: hypoxia and hypercapnia Qualified Code(s): J96.01 - Acute respiratory failure with hypoxia ; J96.02 - Acute respiratory failure with hypercapnia (2) Diastolic dysfunction Code(s): I51.89 - OTHER ILL-DEFINED HEART DISEASES (3) Demand ischemia Code(s): I24.8 - OTHER FORMS OF ACUTE ISCHEMIC HEART DISEASE (4) Ischemic hepatitis Code(s): K75.9 - INFLAMMATORY LIVER DISEASE, UNSPECIFIED (5) Septic shock Code(s): A41.9 - SEPSIS, UNSPECIFIED ORGANISM; R65.21 - SEVERE SEPSIS WITH SEPTIC SHOCK (6) Iatrogenic pneumothorax Code(s): J95.811 - POSTPROCEDURAL PNEUMOTHORAX Assessment/Plan 07/12/2019 echo: Normal biventrucular size and fxn, mod MR, AR 1. Post Acute Hypoxic and Hypercapneic Respiratory Failure 2. Pneumonia 3. Post Septic Shock 4. Coronary artery disease with demand ischemic injury angina pectoris/elevated troponin I level related to sepsis syndrome 5. Diastolic left ventricular dysfunction with clinical class 0-I [place] Heart Association classification left ventricular failure/elevated B-type natriuretic peptide- most likely related to sepsis syndrome 6. Hypertensive cardiovascular disease, hypotension related to the above-noted sepsis syndrome 7. History of non-sustained ventricular tachycardia 8. Aortic valve regurgitation 9. Tricuspid valve regurgitation with moderate degree of pulmonary hypertension 10. History of carotid stenosis, moderate in severity 11. Iatrogenic pneumothorax post right chest tube insertion/complication of subclavian line insertion 12. Abnormal liver function testing trending down, likely shock liver 13. Hyponatremia resolved 14. Chronic Subdural Hematoma 15. 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 Completed antibiotics per C&S 2. Agree with ASA 81 qd, metoprolol 50 bid, Diovan 40 qd, hemodynamics permitting 3. Wean FIO2 to maintain saO2, diet as tolerated 4. DVT/GI prophylaxis 5. PT as tolerated, OOB to chair
--- NOTE | 2019-07-21 13:33 | PN ---
Teaching Attending Note Name of Resident: Enrrique Lin ATTENDING PHYSICIAN STATEMENT I saw and evaluated the patient. I reviewed the resident's note and discussed the case with the resident. I agree with the resident's findings and plan as documented. SUBJECTIVE: No fever or chills. No CUELLAR , no edema . No SOB. in am she was found tachypnic and hypoxic to 80s. she was placed on BIPAP. at time of this evaluation, she is on BIPAP and denies SOB . OBJECTIVE: NAD, awake, hard of hearing BIPAP mask on CV: RRR, 3/7 SM at base and 2/6 SM at apex and L axilla. No JVD Lungs: bibasilar crackles. Abd: soft, NT, Nd , NL BS Ext: trace edema on feet. no erythema. RUE edema 2+ . ASSESSMENT AND PLAN: 88 y/o lady with h/o diastolic dysfunction , HTN, depression, chronic R subdural hematoma , h/o ETOH abuse, R carotid artery stenosis, and recent admission for PNA , and UTI, during which she had NSVT, who was brought from home due to AMS and was found to have acute hypoxic , hypercapnic resp failure.with septic shock from PNA 1- Acute hypoxic resp failure 2- PNA 3- Acute diastolic heart failure 4- Iatrogenic pneumothorax 5- Pleural effusions 6- HARJINDER: resolved 7- Transaminitis: due to shocked liver . improved 8- Hyponatremia 9- NSTEMI . 10 - h/o NSVT Plan: - hypercapnic resp failure today. CO2 66 on BIPAP. cxray reviewed. gave lasix x 1. Now patient is comfortable, and not tachypnic. will remove BIPAP and place on 4 L of O2 via NC, and repeat ABG . - might need standing dose of lasix - cont pulmonary and card eval - monitor off Abx - cont ASa, diovan and BB - DVT Px : SQ heparin
--- NOTE | 2019-07-21 13:34 | PN ---
Progress Note (short form) - Note Progress Note: Apparently had an episode of desaturation this AM requiring NIPPV support and clinically improved. Now on 4 L NC and saturation is 94%. Being feed by the RN. Reports breathing is better. CXR: mildly increased RLL infiltrates Intake & Output 07/18/19 07/19/19 07/20/19 07/21/19 23:59 23:59 23:59 23:59 Intake Total 780 850 830 120 Output Total 250 Balance 780 600 830 120 Weight 110 lb 12.8 oz 96 lb 8 oz 95 lb 5 oz Last Vital Signs Temp Pulse Resp BP Pulse Ox 98.3 F 92 H 35 H 129/50 L 94 L 07/21/19 10:43 07/21/19 09:02 07/21/19 09:02 07/21/19 09:02 07/21/19 12:20 Active Medications Aspirin (Asa -) 81 mg GT DAILY [facility] Last Admin: 07/21/19 09:05 Dose: 81 mg Heparin Sodium (Porcine) (Heparin -) 5,000 unit SQ TID [facility] Last Admin: 07/21/19 05:25 Dose: 5,000 unit Metoprolol Tartrate (Lopressor -) 50 mg PO BID [facility] Last Admin: 07/21/19 09:06 Dose: 50 mg Valsartan (Diovan -) 40 mg PO DAILY [facility] Last Admin: 07/21/19 09:05 Dose: 40 mg Gen: Awake and alert, NAD at rest Heart: RRR Lung: decreased breath sounds at the bases Abd: soft, nontender Ext: + edema Laboratory Results - last 24 hr 07/21/19 07/21/19 06:55 08:38 WBC 12.2 H RBC 4.73 Hgb 13.9 Hct 43.5 D MCV 91.9 MCH 29.4 MCHC 32.0 RDW 13.6 Plt Count 395 MPV 9.1 Absolute Neuts (auto) 10.1 H Neutrophils % 82.5 Lymphocytes % 9.0 D Monocytes % 7.4 Eosinophils % 0.4 Basophils % 0.7 Nucleated RBC % 0 Anticoagulation Therapy No Result Required. Puncture Site Right radial ABG pH 7.38 ABG pCO2 at Pt Temp 61.6 H ABG pO2 at Pt Temp 204 H ABG HCO3 35.7 H ABG O2 Sat (Measured) 99.4 H ABG O2 Content 19.4 ABG Base Excess 8.7 H Roshan Test Positive O2 Delivery Device No Result Required. Oxygen Flow Rate [address] Vent Rate No Result Required. Mechanical Rate No Result Required. Pressure Support Vent 07/01 ASSESSMENT AND PLAN: Acute Hypoxic and Hypercapneic Respiratory Failure improving Pneumonia Septic Shock resolved Acute Kidney Injury improving Lactic Acidosis resolved +Troponins likely Demand Ischemia Elevated LFTs likely Ischemic Injury Right Pneumothorax s/p chest tube placement LV Diastolic Dysfunction Chronic Subdural Hematoma Supplemental O2 to maintain saturation 88% to 94% NIPPV support QHS and PRN ABX per ID PO as tolerated Aspiration precautions DVT prophylaxis Dr Pemberton
[2019-07-21 13:43] LABS: ARTERIAL BLD GAS O2 SATURATION 96.3 % (95-98); ARTERIAL BLOOD GAS BASE EXCESS 10.7 meq/l (-2-2); ARTERIAL BLOOD GAS PCO2 54.7 mmHg (35-45); ARTERIAL BLOOD GAS PO2 81.5 mmHg (80-100); ARTERIAL BLOOD GAS pH 7.44 (7.35-7.45)
[2019-07-21 13:50] LABS: ALLENS TEST POSITIVE
--- NOTE | 2019-07-21 14:10 | PN ---
Physical Exam: SUBJECTIVE: Patient seen and examined at bedside. Overnight, reports of pt desaturating to the 80%'s while on 4L NC and she was placed on BiPap with good response. She offers no complaints and denies SOB, CP, weakness, lethargy, CUELLAR, and vision changes. OBJECTIVE: Vital Signs Period Temp Pulse Resp BP Sys/Da Silva Pulse Ox Last 24 Hr 98.3 F-98.8 F 69-102 20-43 115-152/45-95 93-100 GENERAL: AOx3, in no acute distress, on bipap HEAD: NC. 3 cm healed, vertical laceration on RIGHT mormon EYES: NELSON, EOMI, conjunctiva clear. ENT: Ears normal, nares patent, oropharynx clear without exudates. Moist mucous membranes. NECK: Normal range of motion, supple without lymphadenopathy, JVD, or masses. LUNGS: CTAB. No wheezes, and no crackles. No accessory muscle use. HEART: RRR s1 s2. 2/6 systolic murmur radiating to back. ABDOMEN: Soft, BS present in all 4 quadrants, non-distended, no JVD, MUSCULOSKELETAL: Kyphosis. Left hand contracted (chronic). No CVA tenderness. UPPER EXTREMITIES: 2+ pulses, warm, well-perfused. No cyanosis. No clubbing. No peripheral edema. LOWER EXTREMITIES: 2+ pulses, warm, well-perfused. No calf tenderness. No peripheral edema. NEUROLOGICAL: No focal deficits. Cranial nerves II-XII intact. Normal speech. PSYCHIATRIC: Cooperative. Good eye contact. Appropriate mood and affect. SKIN: RUE ecchymosis extending down flank and spared in certain areas . Echymosis on flexor surface of RUE. Warm, dry, normal turgor, normal capillary refill. Laboratory Results - last 24 hr 07/21/19 07/21/19 07/21/19 06:55 08:38 13:33 WBC 12.2 H RBC 4.73 Hgb 13.9 Hct 43.5 D MCV 91.9 MCH 29.4 MCHC 32.0 RDW 13.6 Plt Count 395 MPV 9.1 Absolute Neuts (auto) 10.1 H Neutrophils % 82.5 Lymphocytes % 9.0 D Monocytes % 7.4 Eosinophils % 0.4 Basophils % 0.7 Nucleated RBC % 0 Anticoagulation Therapy No Result Required. No Result Required. Puncture Site Right radial Right radial ABG pH 7.38 7.44 ABG pCO2 at Pt Temp 61.6 H 54.7 H ABG pO2 at Pt Temp 204 H 81.5 ABG HCO3 35.7 H 36.5 H ABG O2 Sat (Measured) 99.4 H 96.3 ABG O2 Content 19.4 16.8 ABG Base Excess 8.7 H 10.7 H Roshan Test Positive Positive O2 Delivery Device No Result Required. N/c Oxygen Flow Rate [address] No Result Required. Vent Rate No Result Required. No Result Required. Mechanical Rate No Result Required. No Result Required. Pressure Support Vent 12/6 No Result Required. Active Medications Generic Name Dose Route Start Last Admin Trade Name Freq PRN Reason Stop Dose Admin Aspirin 81 mg 07/20/19 10:00 07/21/19 09:05 Asa - GT 81 mg DAILY [facility] Administration Heparin Sodium (Porcine) 5,000 unit 07/19/19 14:00 07/21/19 05:25 Heparin - SQ 5,000 unit TID LISA Administration Metoprolol Tartrate 50 mg 07/19/19 22:00 07/21/19 09:06 Lopressor - PO 50 mg BID LISA Administration Valsartan 40 mg 07/20/19 10:00 07/21/19 09:05 Diovan - PO 40 mg DAILY LISA Administration Head CT : negative for acute intracranial pathology Chest CT:Small right pneumothorax, approximately 10-15%Small bilateral pleural effusions with bilateral compression atelectasis, Patchy infiltrates within the right upper lobe CXR: mildly increased RLL infiltrates ASSESSMENT/PLAN: 88 y/o female PMH HTN, HFpEF, depression, chronic RIGHT subdural hematoma, ETOH abuse, RIGHT carotid artery stenosis, and recent admission for PNA and UTI. Pt brought to hospital after lack of responsiveness and desaturating to the 80s while at home. She was admitted for care of acute hypoxic, hypercapnic respiratory failure. She required critial care for the first part of her stay and is now on medical floor. Recent desaturation on 4L NC, where she was not on home o2, requires further investigation. She will use Bipap when desaturating and HS. # Acute hypoxic, hypercapnic respiratory failure: Physiologic changes of sepsis vs PNA vs exacerbation of HF - ABG pre/post bipap shows hypercapnea. Unknown etiology at this time. Can benefit from continued support of bipap to rid CO2. - Continue cefepime 1 g IV q8h, dc vanc - Lasix, monitor i/o - Diastolic left ventricular dysfunction with clinical class 0-I [place] Heart Association classification left ventricular failure/elevated B-type natriuretic peptide- most likely related to sepsis syndrome. Moderate pulmonary HTN. - Flu swab NEGATIVE - Sputum culture: yeast like organism, normal howie - Urinary antigens: legionella and strep NEGATIVE - Maintain MAP > 65 - Repeat echo: mitral valve regurg, aortic regurg. Echo done 07/07/19: EF 55-60% , mild MR, pulm HTN, & AR - Urine culture NEGATIVE - Blood culture NEGATIVE - Urine tox negative # RIGHT sided Contact dermatitis, stage 2 sacral pressure ulcer - cortisone 1% BID to a - zinc oxide for decubital ulcer - vaseline for lips # HTN - Metoprolol 25 bid per cardiology recommendation - Start JOHANNA inhibitor or angiotensin receptor tino therapy, hemodynamics permitting # HARJINDER - Improving BUN/Cr 20/0.2 - Low cr likely 2/2 low muscle mass - Avoid aggressive hydration # Hyponatremia, resolved - HF vs poor po intake - F/u urine electrolytes: high urineurea nitrogen 545 - I/o - Daily weights # Transaminitis: hypotension vs toxicity vs sepsis vs liver congestion 2/2 heart failure - Repeat liver function improved 132/309 - Likely ischemic hepatitis - US of liver: fatty liver VS hepatocellular disease. 8x9 possible cyst in pancreatic head. Recommend MRI. - Acetominophen level 5.2, WNL # Sepsis with septic shock: Likely due to PNA - Was treated with levophed - Dc vancomycin - Continue Cefepime 1 gm IV q8h # RIGHT pneumothorax - Resolved on repeat CXR - F/u CXR in AM # Troponemia - 0.88 -> 0.93 -> 0.36 - Likely 2/2 sepsis (demand ischemia, hypoxia) - EKG with new inverted TWI anterioseptal leads and L axis deviation which are new compared to EKG form last admission (possible NSTEMI) - Cardiology concurs, likely 2/2 demand in setting of sepsis > ASA 81 mg QD, Metoprolol 25 mg TID and start JOHANNA inhibitor or angiotensin receptor tino therapy if hemodynamics permit # Leukocytosis, resolved - WBC back up today 12.2 from 10.6 - PNA vs left shift # Hypophosphatemia, resolved - NL today - Repleted with K phos 30 mg IV on Jul 14 # F/E/N - NS @ 83mL/hr - Cont. to monitor - Thin liquids # DVT prophylaxis - Heparin SQ # Disposition - Full code - Telemetry Enrrique Lin MD Visit type - Emergency Visit Emergency Visit: No - New Patient This patient is new to me today: No - Critical Care Critical Care patient: No ATTENDING PHYSICIAN STATEMENT I saw and evaluated the patient. I reviewed the resident's note and discussed the case with the resident. I agree with the resident's findings and plan as documented. SUBJECTIVE: OBJECTIVE: ASSESSMENT AND PLAN:
[2019-07-21 15:47] VITALS: BMI 18.5
--- NOTE | 2019-07-21 17:41 | PN ---
Progress Note, Physician History of Present Illness: AWAKE, RESPONSIVE NO ACUTE DISTRESS ON NASAL CANNULA O2 AFEBRILE WBC SL ELEVATED - Current Medication List Current Medications: Active Medications Aspirin (Asa -) 81 mg GT DAILY [facility] Last Admin: 07/21/19 09:05 Dose: 81 mg Heparin Sodium (Porcine) (Heparin -) 5,000 unit SQ TID [facility] Last Admin: 07/21/19 14:25 Dose: 5,000 unit Hydrocortisone (Hytone 1% Cream -) 1 applic TP BID [facility] Lorazepam (Ativan -) 0.5 mg PO TID [facility] Metoprolol Tartrate (Lopressor -) 50 mg PO BID [facility] Last Admin: 07/21/19 09:06 Dose: 50 mg Multi-Ingredient Ointment (Zinc Oxide) 1 applic TP BID [facility] Petrolatum (Vaseline) 1 applic TP DAILY [facility] Valsartan (Diovan -) 40 mg PO DAILY [facility] Last Admin: 07/21/19 09:05 Dose: 40 mg - Objective Vital Signs: Vital Signs Temperature 98.8 F 07/21/19 15:00 Pulse Rate 77 07/21/19 15:00 Respiratory Rate 32 H 07/21/19 15:00 Blood Pressure 143/45 L 07/21/19 15:00 O2 Sat by Pulse Oximetry (%) 97 07/21/19 15:47 Constitutional: Yes: No Distress, Cachectic Cardiovascular: Yes: Regular Rate and Rhythm, S1, S2 Respiratory: Yes: Diminished Gastrointestinal: Yes: Normal Bowel Sounds, Soft. No: Tenderness Integumentary: Yes: Other (CONFLUENT ERYTHEMA WITH ?PUSTULAR COMPONENT R FLANK/ AXILLA) Labs: CBC, BMP 07/21/19 06:55 07/20/19 07:05 INR, PTT INR 1.34 (0.83-1.09) H 07/12/19 06:00 Assessment/Plan RESPIRATORY FAILURE S/P EXTUBATION PNEUMONIA SEPSIS LACTIC ACIDOSIS RESOLVED PNEUMOTHORAX S/P CHEST TUBE CONTACT DERMATIITIS NO VESICLES OR DISTRIBUTION TO SUGGEST VZV CONTINUE CEFEPIME
[2019-07-21] MEDS: HYDROCORTISONE 1% TOPICAL CREAM 30 GM TUBE TP SCH (21:35)
[2019-07-21] MEDS: ZINC OXIDE 20% TOPICAL OINTMENT 30 GM TUBE TP SCH (21:35)
[2019-07-21] MEDS: LORazepam 0.5 MG TABLET PO SCH (21:36)
[2019-07-21] MEDS: PETROLATUM, WHITE 30 GM TUBE TP SCH (21:42)
[2019-07-22] MEDS: LORazepam 0.5 MG TABLET PO SCH ×2 (05:57→14:45)
[2019-07-22] MEDS: HEPARIN NA (PORCINE) 5,000 UNITS/ML 1ML VIAL SQ SCH ×3 (05:57→21:58)
[2019-07-22] MEDS: METOPROLOL TARTRATE 25 MG TABLET (FP) PO SCH ×2 (09:28→21:58)
[2019-07-22] MEDS: ASPIRIN 81 MG CHEWABLE TABLETS GT SCH (09:29)
[2019-07-22] MEDS: VALSARTAN 40 MG TABLET (FP) PO SCH (09:29)
--- NOTE | 2019-07-22 10:28 | PN ---
Progress Note, Physician History of Present Illness: Dyspnea improved, maintained on NC. - Current Medication List Current Medications: Active Medications Aspirin (Asa -) 81 mg GT DAILY [facility] Last Admin: 07/22/19 09:29 Dose: 81 mg Heparin Sodium (Porcine) (Heparin -) 5,000 unit SQ TID [facility] Last Admin: 07/22/19 05:57 Dose: 5,000 unit Hydrocortisone (Hytone 1% Cream -) 1 applic TP BID [facility] Last Admin: 07/21/19 21:35 Dose: 1 applic Lorazepam (Ativan -) 0.5 mg PO TID [facility] Last Admin: 07/22/19 05:57 Dose: 0.5 mg Metoprolol Tartrate (Lopressor -) 50 mg PO BID [facility] Last Admin: 07/22/19 09:28 Dose: 50 mg Multi-Ingredient Ointment (Zinc Oxide) 1 applic TP BID [facility] Last Admin: 07/21/19 21:35 Dose: 1 applic Petrolatum (Vaseline) 1 applic TP DAILY [facility] Last Admin: 07/21/19 21:42 Dose: 1 applic Valsartan (Diovan -) 40 mg PO DAILY [facility] Last Admin: 07/22/19 09:29 Dose: 40 mg - Objective Vital Signs: Vital Signs Temperature 97.5 F L 07/22/19 09:24 Pulse Rate 86 07/22/19 09:24 Respiratory Rate 32 H 07/22/19 09:24 Blood Pressure 123/40 L 07/22/19 09:24 O2 Sat by Pulse Oximetry (%) 96 07/22/19 01:07 Constitutional: Yes: No Distress, Calm, Thin Neck: Yes: Supple Cardiovascular: Yes: Regular Rate and Rhythm Respiratory: Yes: Regular, Diminished, On Nasal O2 Gastrointestinal: Yes: Normal Bowel Sounds, Soft Edema: No Labs: INR, PTT INR 1.34 (0.83-1.09) H 07/12/19 06:00 Problem List - Problems (1) Respiratory failure Code(s): J96.90 - RESPIRATORY FAILURE, UNSP, UNSP W HYPOXIA OR HYPERCAPNIA Qualifiers: Chronicity: acute Respiratory failure complication: hypoxia and hypercapnia Qualified Code(s): J96.01 - Acute respiratory failure with hypoxia ; J96.02 - Acute respiratory failure with hypercapnia (2) Diastolic dysfunction Code(s): I51.89 - OTHER ILL-DEFINED HEART DISEASES (3) Demand ischemia Code(s): I24.8 - OTHER FORMS OF ACUTE ISCHEMIC HEART DISEASE (4) Ischemic hepatitis Code(s): K75.9 - INFLAMMATORY LIVER DISEASE, UNSPECIFIED (5) Septic shock Code(s): A41.9 - SEPSIS, UNSPECIFIED ORGANISM; R65.21 - SEVERE SEPSIS WITH SEPTIC SHOCK (6) Iatrogenic pneumothorax Code(s): J95.811 - POSTPROCEDURAL PNEUMOTHORAX Assessment/Plan 07/12/2019 echo: Normal biventrucular size and fxn, mod MR, AR 1. Post Acute Hypoxic and Hypercapneic Respiratory Failure 2. Pneumonia 3. Post Septic Shock 4. Coronary artery disease with demand ischemic injury angina pectoris/elevated troponin I level related to sepsis syndrome 5. Diastolic left ventricular dysfunction with clinical class 0-I [place] Heart Association classification left ventricular failure/elevated B-type natriuretic peptide- most likely related to sepsis syndrome 6. Hypertensive cardiovascular disease, hypotension related to the above-noted sepsis syndrome 7. History of non-sustained ventricular tachycardia 8. Aortic valve regurgitation 9. Tricuspid valve regurgitation with moderate degree of pulmonary hypertension 10. History of carotid stenosis, moderate in severity 11. Iatrogenic pneumothorax post right chest tube insertion/complication of subclavian line insertion 12. Abnormal liver function testing trending down, likely shock liver 13. Hyponatremia resolved 14. Chronic Subdural Hematoma 15. 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 Completed antibiotics per C&S 2. Agree with ASA 81 qd, metoprolol 50 bid, Diovan 40 qd, hemodynamics permitting 3. Wean FIO2 to maintain saO2, diet as tolerated 4. DVT/GI prophylaxis 5. PT as tolerated, OOB to chair
[2019-07-22 10:50] LABS: ALBUMIN 2.9 g/dl (3.4-5.0); BILIRUBIN,TOTAL 0.5 mg/dL (0.2-1); BLOOD UREA NITROGEN 21.7 mg/dL (7-18); CALCIUM 9.1 mg/dL (8.5-10.1); CREATININE 0.4 mg/dL (0.55-1.3); MAGNESIUM 2.2 mg/dL (1.8-2.4); PHOSPHOROUS 3.1 mg/dL (2.5-4.9); POTASSIUM 3.5 mmol/L (3.5-5.1); TOT PROT 5.7 g/dl (6.4-8.2)
[2019-07-22 10:53] LABS: HEMATOCRIT 39.3 % (32.4-45.2); MCH 30.4 pg (25.7-33.7); MEAN CELL VOLUME 91.9 fl (80-96); MEAN PLT VOLUME 9.3 fl (7.5-11.1); PLATELET COUNT 368 K/MM3 (134-434); RBC 4.28 M/mm3 (3.60-5.2); RDW 13.7 % (11.6-15.6); WHITE BLOOD COUNT 9.3 K/mm3 (4.0-10.0)
[2019-07-22] MEDS: PETROLATUM, WHITE 30 GM TUBE TP SCH (12:14)
[2019-07-22] MEDS: ZINC OXIDE 20% TOPICAL OINTMENT 30 GM TUBE TP SCH ×2 (12:15→22:06)
[2019-07-22] MEDS: HYDROCORTISONE 1% TOPICAL CREAM 30 GM TUBE TP SCH ×2 (12:15→22:06)
--- NOTE | 2019-07-22 14:08 | PN ---
Progress Note, [employer] - Note Progress Note: Selected Entries 07/21/19 07/21/19 07/21/19 02:08 10:00 10:43 Breakfast 50% Lunch 50% Supper Temperature 98.5 F 98.3 F 07/21/19 07/21/19 07/21/19 15:00 18:00 22:00 Breakfast Lunch Supper 25% Temperature 98.8 F 98.1 F 98.7 F 07/22/19 07/22/19 06:00 09:24 Breakfast Lunch Supper Temperature 98.3 F 97.5 F L Laboratory Tests 07/22/19 09:55 WBC 9.3 Eating 25-40% of meals. Limited appetite. Needs to be fed or placed in her lap to self feed. Encourage supplements b/n meals.
--- NOTE | 2019-07-22 14:30 | PN ---
Physical Exam: SUBJECTIVE: Patient seen and examined at bedside. Overnight, she wore only 4L NC and did well. She has no complaints today. She denies SOB, CP, weakness, lethargy, CUELLAR, and vision changes. OBJECTIVE: Vital Signs Period Temp Pulse Resp BP Sys/Da Silva Pulse Ox Last 24 Hr 97.5 F-98.8 F 71-86 19-32 123-152/40-48 96-98 GENERAL: AOx3, in no acute distress, sleepy, on 4L NC HEAD: NC. 3 cm healed, vertical laceration on RIGHT rastafarian EYES: NELSON, EOMI, conjunctiva clear. ENT: Ears normal, nares patent, oropharynx clear without exudates. Moist mucous membranes. NECK: Normal range of motion, supple without lymphadenopathy, JVD, or masses. LUNGS: CTAB. No wheezes, and no crackles. No accessory muscle use. HEART: RRR s1 s2. 2/6 systolic murmur radiating to back. ABDOMEN: Soft, BS present in all 4 quadrants, non-distended, no JVD, MUSCULOSKELETAL: Kyphosis. Left hand contracted (chronic). No CVA tenderness. UPPER EXTREMITIES: 2+ pulses, warm, well-perfused. No cyanosis. No clubbing. No peripheral edema. LOWER EXTREMITIES: 2+ pulses, warm, well-perfused. No calf tenderness. No peripheral edema. NEUROLOGICAL: No focal deficits. Cranial nerves II-XII intact. Normal speech. PSYCHIATRIC: Cooperative. Good eye contact. Appropriate mood and affect. SKIN: RUE ecchymosis extending down flank and spared in certain areas . Echymosis on flexor surface of RUE. Warm, dry, normal turgor, normal capillary refill. Laboratory Results - last 24 hr 07/22/19 07/22/19 09:35 09:55 WBC 9.3 RBC 4.28 Hgb 13.0 Hct 39.3 MCV 91.9 MCH 30.4 MCHC 33.0 RDW 13.7 Plt Count 368 MPV 9.3 Sodium 145 Potassium 3.5 Chloride 103 Carbon Dioxide 38 H Anion Gap 4 L BUN 21.7 H Creatinine 0.4 L Est GFR (CKD-EPI)AfAm 109.31 Est GFR (CKD-EPI)NonAf 94.31 Random Glucose 126 H Calcium 9.1 Phosphorus 3.1 Magnesium 2.2 Total Bilirubin 0.5 AST 19 ALT 66 H Alkaline Phosphatase 101 Total Protein 5.7 L Albumin 2.9 L Active Medications Generic Name Dose Route Start Last Admin Trade Name Soto PRN Reason Stop Dose Admin Aspirin 81 mg 07/20/19 10:00 07/22/19 09:29 Asa - GT 81 mg DAILY LISA Administration Heparin Sodium (Porcine) 5,000 unit 07/19/19 14:00 07/22/19 05:57 Heparin - SQ 5,000 unit TID LISA Administration Hydrocortisone 1 applic 07/21/19 22:00 07/22/19 12:15 Hytone 1% Cream - TP 1 applic BID LISA Administration Lorazepam 0.5 mg 07/21/19 22:00 07/22/19 05:57 Ativan - PO 0.5 mg TID LISA Administration Metoprolol Tartrate 50 mg 07/19/19 22:00 07/22/19 09:28 Lopressor - PO 50 mg BID LISA Administration Multi-Ingredient Ointment 1 applic 07/21/19 22:00 07/22/19 12:15 Zinc Oxide TP 1 applic BID LISA Administration Petrolatum 1 applic 07/21/19 15:30 07/22/19 12:14 Vaseline TP 1 applic DAILY LISA Administration Valsartan 40 mg 07/20/19 10:00 07/22/19 09:29 Diovan - PO 40 mg DAILY LISA Administration Head CT : negative for acute intracranial pathology Chest CT:Small right pneumothorax, approximately 10-15%Small bilateral pleural effusions with bilateral compression atelectasis, Patchy infiltrates within the right upper lobe CXR: mildly increased RLL infiltrates ASSESSMENT/PLAN: 88 y/o female PMH HTN, HFpEF, depression, chronic RIGHT subdural hematoma, ETOH abuse, RIGHT carotid artery stenosis, and recent admission for PNA and UTI. Pt brought to hospital after lack of responsiveness and desaturating to the 80s while at home. She was admitted for care of acute hypoxic, hypercapnic respiratory failure. She required critial care for the first part of her stay and is now on medical floor. Recent desaturation on 4L NC, where she was not on home o2, requires further investigation. She improved on Bipap and now saturates well with 4L NC. She may benefit from SNHF but family refuses. Son, Dr. 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 # Acute hypoxic, hypercapnic respiratory failure: Physiologic changes of sepsis vs PNA vs exacerbation of HF - Cont. 4 L o2 NC - Completed abx course - Lasix, monitor i/o - Diastolic left ventricular dysfunction with clinical class 0-I [place] Heart [employer] classification left ventricular failure/elevated B-type natriuretic peptide- most likely related to sepsis syndrome. Moderate pulmonary HTN. - Flu swab NEGATIVE - Sputum culture: yeast like organism, normal howie - Urinary antigens: legionella and strep NEGATIVE - Maintain MAP > 65 - Repeat echo: mitral valve regurg, aortic regurg. Echo done 07/07/19: EF 55-60% , mild MR, pulm HTN, & AR - Urine culture NEGATIVE - Blood culture NEGATIVE - Urine tox negative # RIGHT sided Contact dermatitis, stage 2 sacral pressure ulcer - cortisone 1% BID to a - zinc oxide for decubital ulcer - vaseline for lips # HTN - Metoprolol 25 bid per cardiology recommendation - Start JOHANNA inhibitor or angiotensin receptor tino therapy, hemodynamics permitting # HARJINDER - Improving BUN/Cr 20/0.2 - Low cr likely 2/2 low muscle mass - Avoid aggressive hydration # Hyponatremia, resolved - HF vs poor po intake - F/u urine electrolytes: high urineurea nitrogen 545 - I/o - Daily weights # Transaminitis: hypotension vs toxicity vs sepsis vs liver congestion 2/2 heart failure - Repeat liver function improved 132/309 - Likely ischemic hepatitis - US of liver: fatty liver VS hepatocellular disease. 8x9 possible cyst in pancreatic head. Recommend MRI. - Acetominophen level 5.2, WNL # Sepsis with septic shock: Likely due to PNA - Was treated with levophed - Dc vancomycin - Continue Cefepime 1 gm IV q8h # RIGHT pneumothorax - Resolved on repeat CXR - F/u CXR in AM # Troponemia - 0.88 -> 0.93 -> 0.36 - Likely 2/2 sepsis (demand ischemia, hypoxia) - EKG with new inverted TWI anterioseptal leads and L axis deviation which are new compared to EKG form last admission (possible NSTEMI) - Cardiology concurs, likely 2/2 demand in setting of sepsis > ASA 81 mg QD, Metoprolol 25 mg TID and start JOHANNA inhibitor or angiotensin receptor tino therapy if hemodynamics permit # Leukocytosis, resolved - WBC back up today 12.2 from 10.6 - PNA vs left shift # Hypophosphatemia, resolved - NL today - Repleted with K phos 30 mg IV on Jul 14 # F/E/N - NS @ 83mL/hr - Cont. to monitor - Thin liquids # DVT prophylaxis - Heparin SQ # Disposition - Full code - Telemetry - Plan for dc to home. Son, Dr. Caldwell, in agreement with plan Enrrique Lin MD Visit type - Emergency Visit Emergency Visit: No - New Patient This patient is new to me today: No - Critical Care Critical Care patient: No ATTENDING PHYSICIAN STATEMENT I saw and evaluated the patient. I reviewed the resident's note and discussed the case with the resident. I agree with the resident's findings and plan as documented. SUBJECTIVE: OBJECTIVE: ASSESSMENT AND PLAN:
[2019-07-22] MEDS ORDERED: LORazepam 0.5 MG TABLET PO PRN (14:36)
--- NOTE | 2019-07-22 15:23 | PN ---
Progress Note (short form) - Note Progress Note: OOB to chair. NAD on NC O2. Reports breathing is overall better. Intake & Output 07/19/19 07/20/19 07/21/19 07/22/19 23:59 23:59 23:59 23:59 Intake Total 850 830 370 50 Output Total 250 Balance 600 830 370 50 Weight 96 lb 8 oz 95 lb 5 oz Last Vital Signs Temp Pulse Resp BP Pulse Ox 97.5 F L 72 32 H 123/40 L 96 07/22/19 09:24 07/22/19 11:49 07/22/19 09:24 07/22/19 09:24 07/22/19 11:49 Active Medications Aspirin (Asa -) 81 mg GT DAILY [facility] Last Admin: 07/22/19 09:29 Dose: 81 mg Heparin Sodium (Porcine) (Heparin -) 5,000 unit SQ TID [facility] Last Admin: 07/22/19 14:48 Dose: 5,000 unit Hydrocortisone (Hytone 1% Cream -) 1 applic TP BID [facility] Last Admin: 07/22/19 12:15 Dose: 1 applic Lorazepam (Ativan -) 0.5 mg PO BID PRN PRN Reason: ANXIETY Metoprolol Tartrate (Lopressor -) 50 mg PO BID [facility] Last Admin: 07/22/19 09:28 Dose: 50 mg Multi-Ingredient Ointment (Zinc Oxide) 1 applic TP BID [facility] Last Admin: 07/22/19 12:15 Dose: 1 applic Petrolatum (Vaseline) 1 applic TP DAILY [facility] Last Admin: 07/22/19 12:14 Dose: 1 applic Valsartan (Diovan -) 40 mg PO DAILY [facility] Last Admin: 07/22/19 09:29 Dose: 40 mg Gen: Awake and alert, NAD at rest Heart: RRR Lung: decreased breath sounds at the bases Abd: soft, nontender Ext: + edema Laboratory Results - last 24 hr 07/22/19 07/22/19 09:35 09:55 WBC 9.3 RBC 4.28 Hgb 13.0 Hct 39.3 MCV 91.9 MCH 30.4 MCHC 33.0 RDW 13.7 Plt Count 368 MPV 9.3 Sodium 145 Potassium 3.5 Chloride 103 Carbon Dioxide 38 H Anion Gap 4 L BUN 21.7 H Creatinine 0.4 L Est GFR (CKD-EPI)AfAm 109.31 Est GFR (CKD-EPI)NonAf 94.31 Random Glucose 126 H Calcium 9.1 Phosphorus 3.1 Magnesium 2.2 Total Bilirubin 0.5 AST 19 ALT 66 H Alkaline Phosphatase 101 Total Protein 5.7 L Albumin 2.9 L ASSESSMENT AND PLAN: Acute Hypoxic and Hypercapneic Respiratory Failure improving Pneumonia Septic Shock resolved Acute Kidney Injury improving Lactic Acidosis resolved +Troponins likely Demand Ischemia Elevated LFTs likely Ischemic Injury Right Pneumothorax s/p chest tube placement LV Diastolic Dysfunction Chronic Subdural Hematoma Supplemental O2 to maintain saturation 88% to 94% NIPPV support QHS and PRN ABX per ID PO as tolerated Aspiration precautions DVT prophylaxis DC planning Dr Pemberton
--- NOTE | 2019-07-22 19:34 | PN ---
Teaching Attending Note Name of Resident: Brad Portillo ATTENDING PHYSICIAN STATEMENT I saw and evaluated the patient. I reviewed the resident's note and discussed the case with the resident. I agree with the resident's findings and plan as documented. SUBJECTIVE: No fever or chills . no SOB . she feels improved OBJECTIVE: NAD, awake, hard of hearing BIPAP mask on. CV: RRR, 3/7 SM at base and 2/6 SM at apex and L axilla. No JVD Lungs: clear lungs today Abd: soft, NT, Nd , NL BS Ext:No edema , no erythema. ASSESSMENT AND PLAN: 88 y/o lady with h/o diastolic dysfunction , HTN, depression, chronic R subdural hematoma , h/o ETOH abuse, R carotid artery stenosis, and recent admission for PNA , and UTI, during which she had NSVT, who was brought from home due to AMS and was found to have acute hypoxic , hypercapnic resp failure.with septic shock from PNA 1- Acute hypoxic resp failure: improved 2- PNA 3- Acute diastolic heart failure 4- Iatrogenic pneumothorax 5- Pleural effusions 6- HARJINDER: resolved 7- Transaminitis: due to shocked liver . improved 8- Hyponatremia 9- NSTEMI . 10 - h/o NSVT 11- contact dermatitis. 12- stage 2 sacral decub ulcer Plan: - she did not requir O2 at rest today - could not ambulated to evaluate ambulatory O2 needs - might need standing dose of lasix - cont pulmonary and card eval - monitor off Abx . stopping Abx was d/w Dr. freeman on 07/20. will try to d/ w Dr. Graham again. - cont ASa, diovan and BB - DVT Px : SQ heparin rehab placement was advised. family and patient refused . will arrange for home PT and resume her 24 hour aid dc arrangements tomorrow
[2019-07-23] MEDS: HEPARIN NA (PORCINE) 5,000 UNITS/ML 1ML VIAL SQ SCH ×2 (06:08→15:24)
[2019-07-23 09:09] VITALS: TEMP 99
[2019-07-23] MEDS ORDERED: CEFEPIME 1 GM in DEXTROSE 5%-WATER 100 ML IVPB SCH (10:00)
[2019-07-23] MEDS ORDERED: CEFEPIME HCL/D5W 1 GM/50 ML BAG IVPB SCH (10:00)
[2019-07-23] MEDS ORDERED: CEFEPIME HCL 1 GM VIAL (RESTRICTED TO ID) ONE (10:04)
[2019-07-23] MEDS ORDERED: DEXTROSE 5%-WATER 100 ML IVPB ONE (10:04)
[2019-07-23] MEDS: VALSARTAN 40 MG TABLET (FP) PO SCH (10:32)
[2019-07-23] MEDS: METOPROLOL TARTRATE 25 MG TABLET (FP) PO SCH (10:32)
[2019-07-23] MEDS: HYDROCORTISONE 1% TOPICAL CREAM 30 GM TUBE TP SCH (10:32)
[2019-07-23] MEDS: ASPIRIN 81 MG CHEWABLE TABLETS GT SCH (10:32)
[2019-07-23] MEDS: ZINC OXIDE 20% TOPICAL OINTMENT 30 GM TUBE TP SCH (10:33)
[2019-07-23] MEDS: PETROLATUM, WHITE 30 GM TUBE TP SCH (10:33)
--- NOTE | 2019-07-23 11:06 | PN ---
Progress Note (short form) - Note Progress Note: Resting in bed. NAD on NC O2. Reports breathing is overall better. Intake & Output 07/20/19 07/21/19 07/22/19 07/23/19 23:59 23:59 23:59 23:59 Intake Total 830 370 540 240 Balance 830 370 540 240 Weight 95 lb 5 oz Last Vital Signs Temp Pulse Resp BP Pulse Ox 99 F 83 18 132/52 L 98 07/23/19 09:08 07/23/19 10:38 07/23/19 10:38 07/23/19 10:38 07/22/19 21:00 Active Medications Aspirin (Asa -) 81 mg GT DAILY [facility] Last Admin: 07/23/19 10:32 Dose: 81 mg Heparin Sodium (Porcine) (Heparin -) 5,000 unit SQ TID [facility] Last Admin: 07/23/19 06:08 Dose: 5,000 unit Hydrocortisone (Hytone 1% Cream -) 1 applic TP BID [facility] Last Admin: 07/23/19 10:32 Dose: 1 applic Cefepime HCl 1 gm/ Dextrose 100 mls @ 200 mls/hr IVPB Q8H-IV [facility] Last Admin: 07/23/19 10:32 Dose: 200 mls/hr Lorazepam (Ativan -) 0.5 mg PO BID PRN PRN Reason: ANXIETY Metoprolol Tartrate (Lopressor -) 50 mg PO BID [facility] Last Admin: 07/23/19 10:32 Dose: 50 mg Multi-Ingredient Ointment (Zinc Oxide) 1 applic TP BID [facility] Last Admin: 07/23/19 10:33 Dose: 1 applic Petrolatum (Vaseline) 1 applic TP DAILY [facility] Last Admin: 07/23/19 10:33 Dose: 1 applic Valsartan (Diovan -) 40 mg PO DAILY [facility] Last Admin: 07/23/19 10:32 Dose: 40 mg Gen: Awake and alert, NAD at rest Heart: RRR Lung: decreased breath sounds at the bases Abd: soft, nontender Ext: + edema ASSESSMENT AND PLAN: Acute Hypoxic and Hypercapneic Respiratory Failure improving Pneumonia Septic Shock resolved Acute Kidney Injury improving Lactic Acidosis resolved +Troponins likely Demand Ischemia Elevated LFTs likely Ischemic Injury Right Pneumothorax s/p chest tube placement LV Diastolic Dysfunction Chronic Subdural Hematoma Supplemental O2 to maintain saturation 88% to 94% NIPPV support QHS and PRN ABX per ID PO as tolerated Aspiration precautions DVT prophylaxis Will need home O2 to be arranged DC planning once on PO ABX Dr Pemberton
--- NOTE | 2019-07-23 11:38 | PN ---
Progress Note (short form) - Note Progress Note: alert nad chest tube out resting comfortably Vital Signs Period Temp Pulse Resp BP Sys/Da Silva Pulse Ox Last 24 Hr 98.9 F-99.3 F 71-98 18-22 120-139/40-83 92-98 cor-rrr lungs decreased bs at bases abd soft,nt ext no edema erythema right side surrounding the chest tube site CBC, BMP 07/22/19 09:55 07/22/19 09:35 a/p respiratory failure pneumonia abnl lfts +troponins PTX has completed full course of antiibotics will d/c cefepime and observe
--- NOTE | 2019-07-23 13:22 | PN ---
Teaching Attending Note Name of Resident: Enrrique Lin ATTENDING PHYSICIAN STATEMENT I saw and evaluated the patient. I reviewed the resident's note and discussed the case with the resident. I agree with the resident's findings and plan as documented. SUBJECTIVE: No fever or chills. No CUELLAR . no SOB . feels much better OBJECTIVE: NAD, awake, hard of hearing CV: RRR, 3/7 SM at base and 2/6 SM at apex and L axilla. No JVD Lungs: clear lungs Abd: soft, NT, Nd , NL BS Ext:No edema , no erythema. R flank and axillary area with dry, scaly, hyperpigmented skin ASSESSMENT AND PLAN: 88 y/o lady with h/o diastolic dysfunction , HTN, depression, chronic R subdural hematoma , h/o ETOH abuse, R carotid artery stenosis, and recent admission for PNA, and UTI, during which she had NSVT, who was brought from home due to AMS and was found to have acute hypoxic , hypercapnic resp failure.with septic shock from PNA 1- Acute hypoxic resp failure: improved 2- PNA 3- Acute diastolic heart failure 4- Iatrogenic pneumothorax 5- Pleural effusions 6- HARJINDER: resolved 7- Transaminitis: due to shocked liver . improved 8- Hyponatremia 9- NSTEMI . 10 - h/o NSVT 11- contact dermatitis. 12- stage 2 sacral decub ulcer Plan: - off o2 she is 91-94%. she does not need O2. - could not ambulated to evaluate ambulatory O2 needs - case was d/w card, Dr. babin . 20 mg of lasix was added - she will follow withher PCP who is a set up and charger, and she will be evaluated for continuing or Dc lasix - cont pulmonary f/u as out pt - d/w Dr. freeman. No need fro Abx - cont ASa, diovan and BB - cont hydrocortisone for contact dermatitis of R flank - cont zinc oxide for stage 2 decub - vaseline to the lips patient and family prefer home over rehab. aid and VNS was arranged.
[2019-07-23 14:15] VITALS: PULSE 82
[2019-07-23 14:48] VITALS: BP 122/40
--- NOTE | 2019-07-23 15:11 | DS ---
Physical Exam: SUBJECTIVE: Patient seen and examined at bedside with family. She offers no complaints and is not utilizing o2. 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 Pt states she wants to go home. No cough, SOB, CP, CUELLAR, and abdominal pain. OBJECTIVE: Vital Signs Period Temp Pulse Resp BP Sys/Da Silva Pulse Ox Last 24 Hr 98.9 F-99.3 F 71-98 18-22 120-139/40-83 92-98 PHYSICAL EXAM GENERAL: AOx3, in no acute distress, awake and conversing well HEAD: NC. 3 cm healed, vertical laceration on RIGHT quaker EYES: NELSON, EOMI, conjunctiva clear. ENT: Ears normal, nares patent, oropharynx clear without exudates. Moist mucous membranes. Dried blood on LEFT oral mucosa; covered with petroleum. NECK: Normal range of motion, supple without lymphadenopathy, JVD, or masses. LUNGS: CTAB. No wheezes, and no crackles. No accessory muscle use. HEART: RRR s1 s2. 2/6 systolic murmur radiating to back. ABDOMEN: Soft, BS present in all 4 quadrants, non-distended, no JVD, MUSCULOSKELETAL: Kyphosis. Left hand contracted (chronic). No CVA tenderness. UPPER EXTREMITIES: 2+ pulses, warm, well-perfused. No cyanosis. No clubbing. No peripheral edema. LOWER EXTREMITIES: 2+ pulses, warm, well-perfused. No calf tenderness. No peripheral edema. NEUROLOGICAL: No focal deficits. Cranial nerves II-XII intact. Normal speech. PSYCHIATRIC: Cooperative. Good eye contact. Appropriate mood and affect. SKIN: RUE ecchymosis extending down flank and spared in certain areas . Echymosis on flexor surface of RUE. Warm, dry, normal turgor, normal capillary refill. LABS WBC 9.3, H/H 13/39.9, Plt 329; Na 143, K 3.5, Cl 103, ^Hco 338, BUN/Cr ^ 21.7/0.4, Gluc 126 HOSPITAL COURSE: Date of Admission:07/11/19 88 y/o female PMH HTN, HFpEF, depression, chronic RIGHT subdural hematoma, ETOH abuse, RIGHT carotid artery stenosis, and recent admission for PNA and UTI. 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 She was admitted for care of acute hypoxic, hypercapnic respiratory failure. She required critial care for the first part of her stay and is now on medical floor. Recent desaturation on 4L NC, where she was not on home o2, but HS bipap improved resp status and she no loner required o2: 93% on RA. Acute problems resolved and it was rec that she may benefit from SNHF but family refuses. Son, Dr. 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 She benefited from a once time dose of lasix and was seen by cardiology whom rec 20 mg PO QD till she is assessed in 1 week by a marketing planning manager. Diastolic left ventricular dysfunction with clinical class 0-I [place] [employer] classification left ventricular failure/elevated B-type natriuretic peptide- most likely related to sepsis syndrome. She also demonstrated moderate pulmonary HTN. While here, flu swab NEGATIVE, sputum culture: yeast like organism, normal howie, urinary antigens: legionella and strep NEGATIVE, urine/ blood cx NEGATIVE. U tox NEGATIVE. Repeat echo: mitral valve regurg, aortic regurg. Echo done 07/07/19: EF 55-60%, mild MR, pulm HTN, & AR During the stay she experienced a RIGHT sided Contact dermatitis and had a stage 2 sacral pressure ulcer. She improved with cortisone 1% BID, zinc oxide for decubital ulcer, and vaseline for lips. She recieved a full course of cefepime. Her HTN regimen included Metoprolol 25 bid per cardiology. She also was tx for HARJINDER, hyponatremia, transaminitis, troponemia, all resolved and likely 2/2 sepsis on presentation. She was seen by speech/swallow expert that recommended thin liquids. Plan for dc to home. Son, Dr. Caldwell, and daughter Kayla in agreement with plan. Date of Discharge: 07/23/19 Enrrique Lin MD Minutes to complete discharge: 40 Discharge Summary Problems reviewed: Yes Reason For Visit: RESPIRATORY FAILURE WITH HYPERCAPNIA Current Active Problems Acute diastolic heart failure (Acute) Condition: Improved - Instructions Diet, Activity, Other Instructions: YOUR VISIT You came to the hospital because you were found to have difficulty breathing and less responsive. You were admitted to the Intensive Care Unit for support of your lungs. You were found to have pneumonia, which has been treated and has now resolved. You were also found to have a urinary tract infection and received treatment for this. You have an ulcer on your back and it was cared for with regular turning and zinc oxide; you will need to continue this care. You were seen by a tile layer, infectious disease specialist, and a marketing planning manager. You could benefit from a nursing home facility for physical rehabilitation. Since it is your wish to return home, you may return home given home Physical Therapy and resumption of your 24 home health aid. MEDICATIONS changes - Start Zinc oxide - apply daily to the sacral wound until it heals. - Start Valsartan 40 mg by mouth every day. - Your Metoprolol was increased from 25 to 50 mg by mouth every day. - Start Furosemide 20 mg by mouth once a day. - Please take lorazepam 0.5 mg only twice a day by mouth as needed instead of three times a day to avoid bad effects on your lungs and mental status. - We have not been giving you your trazodone. please discuss with your primary doctor. - Apply hydrocortisone 1% to the contact dermatitis on your right flank. Follow with your primary care provider regarding further instructions. - Apply vaseline to your lips to avoid bleeding. - Albuterol inhaler was added. Please use it as needed for shortness of breath. ADDITIONAL CARE Please make an appointment to see your primary care provider/marketing planning manager, Dr. Sherwood 1 week from today. If you prefer, you can be seen at the [facility] residents clinic located at [address] [place] [address]. Please call to make an appointment. If you would like to continue seeing Dr. Enrrique Lin, please ask for a Thursday morning appointment. Please make an appointment with a tile layer 1 week from today. A referral to Dr. Pemberton has been provided. Please make an appointment with a marketing planning manager 1 week from today. A referral to Dr. Beck has been provided. ADDITIONAL INFORMATION Please call 911 or come directly to the emergency department if you experience unusual headache, vision change, shortness of breath, chest pain, numbness, tingling, loss of alertness/awareness, loss of function, unusual bleeding or any alarming symptoms. Please weigh yourself daily and record it in a notebook. Please bring this log to your doctor when you see them in 1 week (Dr. Sherwood). Referrals: Richie Al MD [Staff Physician] - Randall Pemberton MD [Staff Physician] - 1 Week Benny Beck MD [Staff Physician] - Chloé Sherwood [Non Staff, Medical] - 1 Week Disposition: VNS/HOME HEALTH CARE - Home Medications Comprehensive Discharge Medication List: Ambulatory Orders Sertraline HCl 50 mg PO DAILY 07/07/19 Calcium 500Mg/Vit-D 200 Units [Os-Silvio 500+D -] 1 tab PO BID 30 Days #60 tab Albuterol Sulfate Inhaler - [Ventolin HFA Inhaler -] 1 puff IH Q4H PRN #1 inhaler 07/23/19 Aspirin 81 mg PO DAILY #30 tab.chew 07/23/19 Furosemide 20 mg PO DAILY 30 Days #30 tablet 07/23/19 Hydrocortisone 1% Ointment [Hytone 1% Ointment -] 1 applic TP DAILY #1 tube LORazepam [Ativan] 0.5 mg PO BID PRN tablet MDD 1.5 07/23/19 Metoprolol Tartrate [Lopressor -] 50 mg PO BID 30 Days #60 tablet 07/23/19 Petrolatum - White [Vaseline -] 1 applic TP DAILY applic 07/23/19 Valsartan [Diovan] 40 mg PO DAILY 30 Days #30 tablet 07/23/19 Zinc Oxide 1 applic TP BID #1 tube 07/23/19 Zinc Oxide 1 applic TP DAILY #1 oint..gm. 07/23/19 This patient is new to me today: No Emergency Visit: No Critical Care patient: No - Discharge Referral Referred to [facility] No ATTENDING PHYSICIAN STATEMENT I saw and evaluated the patient. I reviewed the resident's note and discussed the case with the resident. I agree with the resident's findings and plan as documented. SUBJECTIVE: OBJECTIVE: ASSESSMENT AND PLAN:
== END 2019-07-23 15:26 | disposition home health service (06) | DRG 871 ==
LOC: JER 21:17 → JERBED 23:49 → JICU 07-12 05:04 → J5S 07-19 13:11
PROVIDERS: ADMIT Internal Medicine; ATTEND Internal Medicine
PROC: 5A1945Z Respiratory Ventilation, 24-96 Consecutive Hours (ICD-10-PCS; principal; 2019-07-12)
PROC: 0BH17EZ Insertion of Endotracheal Airway into Trachea, Via Natural or Artificial Opening (ICD-10-PCS; 2019-07-12)
PROC: 0W9930Z Drainage of Right Pleural Cavity with Drainage Device, Percutaneous Approach (ICD-10-PCS; 2019-07-12)
DX: A41.9 Sepsis, unspecified organism (principal); J96.01 Acute respiratory failure with hypoxia; J18.9 Pneumonia, unspecified organism; J96.02 Acute respiratory failure with hypercapnia; I50.33 Acute on chronic diastolic (congestive) heart failure; R65.21 Severe sepsis with septic shock; I21.4 Non-ST elevation (NSTEMI) myocardial infarction; N17.9 Acute kidney failure, unspecified; E87.1 Hypo-osmolality and hyponatremia; E87.2 Acidosis; N39.0 Urinary tract infection, site not specified; J93.83 Other pneumothorax; I47.1 Supraventricular tachycardia; R64 Cachexia; Z68.1 Body mass index [BMI] 19.9 or less, adult; E87.0 Hyperosmolality and hypernatremia; F32.9 Major depressive disorder, single episode, unspecified; I27.20 Pulmonary hypertension, unspecified; L89.152 Pressure ulcer of sacral region, stage 2; R74.0 Nonspecific elevation of levels of transaminase and lactic acid dehydrogenase [LDH]; L25.9 Unspecified contact dermatitis, unspecified cause; D72.829 Elevated white blood cell count, unspecified; E83.39 Other disorders of phosphorus metabolism; I11.0 Hypertensive heart disease with heart failure; F41.8 Other specified anxiety disorders
CPT/HCPCS: 36415; 36600; 70450-TC; 71045-TC-FY; 71250-TC; 73070-TC-RT-FY; 74018-TC-FY; 76700-TC; 76775-TC; 76856-TC; 80048; 80053; 80076; 80307; 81003; 82375; 82550; 82565; 82693; 82803; 82962; 83050; 83605; 83735; 83880; 83930; 83935; 84100; 84300; 84443; 84450; 84460; 84484; 84540; 85025; 85027; 85610; 85730; 86850; 86900; 86901; 87040; 87070; 87077; 87086; 87205; 87804; 87807; 87899; 93005; 93010; 93306-TC; 93971; 94002; 94660; 94761; 97116-GP; 97162-GP; 99285-25; G0480; J0131; J1644; J7030

== ENCOUNTER 2019-07-24 23:56 | Inpatient (IN) | payer OTHER, BC ==
--- NOTE | 2019-07-25 00:07 | PDOC ---
History of Present Illness <Chevy Martinez - Last Filed: 07/25/19 05:50> - History of Present Illness Initial Comments: 07/25/19 01:05 88 year old woman with a history of HTN, CHF and depression, recent admission for hypoxic hypercapneic respiratory failure requiring intubation who presents with increased work of breathing as noticed by her in home caregiver. The patient is tired appearing and unable to provide history to due apparent fatigue and shortness ofb reath. Per aid since discharge on 07/23/19 The patient has been unable to sleep and earlier today as she sat her in a chair she noticed that the patient was breathing rapidly and breathing hard. social worker aide denies fever, pt compliants of chest pain, n/v/d/c or changes in urination. No further history Code Status: Full Code ROS - limited 2/2 patient short of breath and faituge GENERAL/CONSTITUTIONAL: No fever or chills. No weakness. CARDIOVASCULAR: No chest pain + shortness of breath RESPIRATORY: No cough, wheezing, or hemoptysis. GASTROINTESTINAL: No nausea, vomiting, diarrhea or constipation. PE GENERAL: Awake, tired appearing, nonparticipatory with exam HEAD: No signs of trauma, normocephalic, atraumatic EYES: EOMI, sclera anicteric, conjunctiva clear ENT: on nonrebreather NECK: Normal ROM, supple LUNGS: No distress, speaks full sentences, + crackles bilaterally HEART: Regular rate and rhythm, normal S1 and S2, no murmurs, rubs or gallops, peripheral pulses normal and equal bilaterally. ABDOMEN: Soft, nontender No guarding, no rebound. No masses EXTREMITIES : Normal inspection, Normal range of motion, no edema. No clubbing or cyanosis. NEUROLOGICAL: Cranial nerves II through XII grossly intact. Normal speech, no focal sensorimotor deficits SKIN: Warm, Dry, normal turgor, no rashes or lesions noted MDM DDX including but not limited to: CHF exacerbation vs pna r/o ACS ED Course: 07/12/19: Small bilateral pleural effusions with bilateral compression atelectasis, Patchy infiltrates within the right upper lobe on Ct chest Patient with low grade temp 99.9 and shortness of breath sepsis workup supplemental oxygen CXR: R sided lung infiltrates leukocytosis vanc / zosyn dosed vbg with hypercapnea and acidosis Patient admitted to medicine on reassessment patient with shallow breaths and increased work of breathing Plan to intubate 0258: son called and agreed to intubation. 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.) COPD: No CHF: Yes DVT: No HTN: Yes - Surgical History Appendectomy: Yes - Immunization History Immunization Up to Date: Yes - Psycho Social/Smoking Cessation Hx Smoking Status: No Smoking History: Unknown if ever smoked Have you smoked in the past 12 months: No Number of Cigarettes Smoked Daily: 0 Hx Alcohol Use: No Drug/Substance Use Hx: No Substance Use Type: None <Zoila Morejon - Last Filed: 07/25/19 06:41> - Past Medical History Allergies/Adverse Reactions: Allergies Allergy/AdvReac Type Severity Reaction Status Date / Time No Known Allergies Allergy Verified 07/25/19 00:17 Home Medications: Ambulatory Orders Sertraline HCl 50 mg PO DAILY 07/07/19 Calcium 500Mg/Vit-D 200 Units [Os-Silvio 500+D -] 1 tab PO BID 30 Days #60 tab Albuterol Sulfate Inhaler - [Ventolin HFA Inhaler -] 1 puff IH Q4H PRN #1 inhaler 07/23/19 Aspirin 81 mg PO DAILY #30 tab.chew 07/23/19 Furosemide 20 mg PO DAILY 30 Days #30 tablet 07/23/19 Hydrocortisone 1% Ointment [Hytone 1% Ointment -] 1 applic TP DAILY #1 tube LORazepam [Ativan] 0.5 mg PO BID PRN tablet MDD 1.5 07/23/19 Metoprolol Tartrate [Lopressor -] 50 mg PO BID 30 Days #60 tablet 07/23/19 Petrolatum - White [Vaseline -] 1 applic TP DAILY applic 07/23/19 Valsartan [Diovan] 40 mg PO DAILY 30 Days #30 tablet 07/23/19 Zinc Oxide 1 applic TP BID #1 tube 07/23/19 Zinc Oxide 1 applic TP DAILY #1 oint..gm. 07/23/19 *Physical Exam - Vital Signs Last Vital Signs Temp Pulse Resp BP Pulse Ox 99.0 F 71 20 166/51 L 100 07/25/19 00:11 07/25/19 04:08 07/25/19 05:41 07/25/19 04:08 07/25/19 04:08 <Chevy Martinez - Last Filed: 07/25/19 05:50> Procedures - Intubation Time of Intubation: 02:30 Intubation Method: orotracheal Blade used: Mac Tube Size (Fr): 7.5 Medications: Etomidate, Rocuronium Tube position @ lip (cm): 22 Tube position confirmed by: Direct visualization, CO2 detector, Chest x-ray, Breath sounds Breath Sounds after Intubation: equal Intubation Complications: oral-unsuccessful attempt Post Intubation Xray: Yes <Chevy Martinez - Last Filed: 07/25/19 05:50> ED Treatment Course - LABORATORY CBC & Chemistry Diagram: 07/25/19 00:30 07/25/19 00:30 - ADDITIONAL ORDERS Additional order review: Laboratory Results 07/25/19 07/25/19 07/25/19 01:00 01:00 00:30 PT with INR 13.20 H INR 1.12 H PTT (Actin FS) 28.7 VBG pH 7.25 L POC VBG pCO2 84.2 H* POC VBG pO2 53.4 H VBG HCO3 35.7 H VBG O2 Sat (Clara) 78.4 VBG Base Excess 5.6 H Sodium Potassium Chloride Carbon Dioxide Anion Gap BUN Creatinine Est GFR (CKD-EPI)AfAm Est GFR (CKD-EPI)NonAf Random Glucose Lactic Acid 2.2 H* Calcium Total Bilirubin AST ALT Alkaline Phosphatase Troponin I B-Natriuretic Peptide Total Protein Albumin 07/25/19 07/25/19 00:30 00:30 PT with INR INR PTT (Actin FS) VBG pH POC VBG pCO2 POC VBG pO2 VBG HCO3 VBG O2 Sat (Clara) VBG Base Excess Sodium 141 Potassium 3.7 Chloride 100 Carbon Dioxide 35 H Anion Gap 7 L BUN 19.3 H Creatinine 0.4 L Est GFR (CKD-EPI)AfAm 109.31 Est GFR (CKD-EPI)NonAf 94.31 Random Glucose 173 H Lactic Acid Calcium 9.3 Total Bilirubin 0.8 AST 26 ALT 62 H Alkaline Phosphatase 115 Troponin I 0.03 B-Natriuretic Peptide 4686.0 H Total Protein 6.9 Albumin 3.6 07/25/19 00:30 RBC 4.56 MCV 91.8 MCHC 32.2 RDW 13.9 MPV 10.0 Neutrophils % 88.6 H Lymphocytes % 6.6 L D Monocytes % 3.8 Eosinophils % 0.1 Basophils % 0.9 - Medications Given in the ED: ED Medications Discontinued Medications Generic Name Dose Route Start Last Admin Trade Name Freq PRN Reason Stop Dose Admin Acetaminophen 1,000 mg 07/25/19 01:21 07/25/19 01:49 Ofirmev Injection - IVPB 07/25/19 01:22 1,000 mg ONCE ONE Administration Etomidate 14 mg 07/25/19 02:45 07/25/19 03:00 Amidate - 0.3 mg/kg (14 mg) 07/25/19 02:46 14 mg IVPUSH Administration ONCE ONE Vancomycin HCl 1,000 mg/ 250 mls @ 166.667 mls/hr 07/25/19 01:36 07/25/19 02: 36 Dextrose IVPB 07/25/19 03:05 166.667 mls/hr ONCE ONE Administration Piperacillin Sod/Tazobactam 100 mls @ 200 mls/hr 07/25/19 01:36 07/25/19 02: 08 Sod 4.5 gm/ Dextrose IVPB 07/25/19 02:05 200 mls/hr ONCE ONE Administration Protocol Rocuronium [place] 27 mg 07/25/19 02:44 07/25/19 03:00 Zemuron - 0.6 mg/kg (27 mg) 07/25/19 02:45 27 mg IVPUSH Administration ONCE ONE <Chevy Martinez - Last Filed: 07/25/19 05:50> - LABORATORY CBC & Chemistry Diagram: 07/25/19 00:30 07/25/19 00:30 <Zoila Morejon - Last Filed: 07/25/19 06:41> Critical Care Time/MDM Note Total Critical Care Time: 90 Critical Care Statement: The care of this patient involved high complexity decision making to prevent further life threatening deterioration of the patient 's condition and/or to evaluate & treat vital organ system(s) failure or risk of failure. <Zoila Morejon - Last Filed: 07/25/19 06:41>
--- NOTE | 2019-07-25 00:09 | PDOC ---
Attending Attestation - Resident Resident Name: Zoila Morejon - ED Attending Attestation I have performed the following: I have examined & evaluated the patient, The case was reviewed & discussed with the resident, I agree w/resident's findings & plan - HPI HPI: 07/25/19 01:41 see resident hpi - Physicial Exam PE: 07/25/19 01:41 agree with resident exam - Medical Decision Making 07/25/19 01:42 88-year-old female with shortness of breath Chest x-ray shows worsening bilateral infiltrates, right greater than left Patient is status post recent admission for similar symptoms and hypercapnic respiratory failure Due to elevated white blood cell count and mildly elevated temp and an 88-year- old she will also be covered for pneumonia Family is at the bedside and aware of the plan
[2019-07-25 01:12] LABS: BASO % 0.9 % (0-2.0); EOS % 0.1 % (0-4.5); HEMATOCRIT 41.8 % (32.4-45.2); HEMOGLOBIN 13.5 GM/dL (10.7-15.3); LYMPH % 6.6 % (8-40); MCH 29.6 pg (25.7-33.7); MCHC 32.2 g/dl (32.0-36.0); MEAN CELL VOLUME 91.8 fl (80-96); MONO % 3.8 % (3.8-10.2); NEUT % 88.6 % (42.8-82.8); PLATELET COUNT 410 K/MM3 (134-434); RBC 4.56 M/mm3 (3.60-5.2); RDW 13.9 % (11.6-15.6); WHITE BLOOD COUNT 15.5 K/mm3 (4.0-10.0)
[2019-07-25 01:16] LABS: VENOUS PH 7.25 (7.31-7.41); VENOUS PO2 53.4 mmHg (28-48)
[2019-07-25] MEDS ORDERED: ACETAMINOPHEN 1000 MG/100 ML VIAL (NON FORMULARY) IVPB ONE (01:21)
[2019-07-25 01:22] LABS: VENOUS PC02 84.2 mmHg (38-52)
[2019-07-25] MEDS ORDERED: VANCOMYCIN 1,000 MG in DEXTROSE 5%-WATER - 250 ML IVPB ONE (01:36)
[2019-07-25] MEDS ORDERED: PIPERACILLIN/TAZOB 4.5 GM 4.5 GM in DEXTROSE 5%-WATER 100 ML IVPB ONE (01:36)
[2019-07-25] MEDS ORDERED: ACETAMINOPHEN INJECTION 100 ML IVPB ONE (01:47)
[2019-07-25 01:54] LABS: ALBUMIN 3.6 g/dl (3.4-5.0); BILIRUBIN,TOTAL 0.8 mg/dL (0.2-1); BLOOD UREA NITROGEN 19.3 mg/dL (7-18); CALCIUM 9.3 mg/dL (8.5-10.1); CREATININE 0.4 mg/dL (0.55-1.3); POTASSIUM 3.7 mmol/L (3.5-5.1); TOT PROT 6.9 g/dl (6.4-8.2)
[2019-07-25] MEDS ORDERED: VANCOMYCIN 1 GRAM (PRE-DOCKED) 1,000 MG/250 ML BAG IVPB ONE (02:03)
[2019-07-25] MEDS ORDERED: PIPERACILLIN/TAZOB 4.5 GM 4.5 GM/100 ML BAG IVPB ONE (02:03)
[2019-07-25] MEDS ORDERED: ROCURONIUM BROMIDE 50 MG/5 ML VIAL IVPUSH ONE (02:44)
[2019-07-25] MEDS ORDERED: ETOMIDATE 40 MG/20 ML VIAL IVPUSH ONE (02:45)
[2019-07-25] MEDS ORDERED: RAPID SEQUENCE INTUBATION KIT NR ONE (02:53)
[2019-07-25 03:39] LABS: ARTERIAL BLD GAS O2 SATURATION 99.7 % (95-98); ARTERIAL BLOOD GAS BASE EXCESS 8.8 meq/l (-2-2); ARTERIAL BLOOD GAS PCO2 51.7 mmHg (35-45); ARTERIAL BLOOD GAS PO2 314 mmHg (80-100); ARTERIAL BLOOD GAS pH 7.44 (7.35-7.45); CARBOXYHEMOGLOBIN 0.9 % (0-2)
[2019-07-25 03:42] LABS: ALLENS TEST POSITIVE
--- NOTE | 2019-07-25 03:44 | HP ---
CHIEF COMPLAINT:shortness of breath PCP: HISTORY OF PRESENT ILLNESS: 88 yo F PMH of HFpEF, HTN, depression, right CCA stenosis, chronic R subdural hematoma, recently admitted to [facility] ( d/c on 07/23) presented to ED for shortness of breath. PT was recently admitted to [facility] 2/2 acute hypoxic hypercapneic respiratory failure and sepsis 2/2 pna and uti. during this last admission, pt was intubated and required central line for pressor support. pt subsequently developed a pneumothorax and needed a chest tube. pt completed a course of cefepime and was improved. pt was unable to provide history . pt reported was seen dyspneic by home health aid. aid also reports that pt has not been able to sleep the past 2 nights. pt is unable to provide history.\ ER course was notable for: (1)VB.25, pCO2 84.2, pO2 53.4 (2)CXR: b/l infiltrates, worse from prior admission (3)intubation Recent Travel: denies PAST MEDICAL HISTORY:HFpEF, HTN, depression, right CCA stenosis PAST SURGICAL HISTORY: appendectomy (> 50 y ago), tonsillectomy, ORIF (2016) Social History: Smoking:denies Alcohol:hx of alcohol abuse Drugs: denies Allergies No Known Allergies Allergy (Verified 07/25/19 00:17) HOME MEDICATIONS: Home Medications Medication Instructions Recorded Sertraline HCl 50 mg PO DAILY 07/07/19 Calcium 500Mg/Vit-D 200 Units 1 tab PO BID 30 Days #60 tab 07/08/19 [Os-Silvio 500+D -] Albuterol Sulfate Inhaler - 1 puff IH Q4H PRN #1 inhaler 07/23/19 [Ventolin HFA Inhaler -] Aspirin 81 mg PO DAILY #30 tab.chew 07/23/19 Furosemide 20 mg PO DAILY 30 Days #30 tablet 07/23/19 Hydrocortisone 1% Ointment [Hytone 1 applic TP DAILY #1 tube 07/23/19 1% Ointment -] LORazepam [Ativan] 0.5 mg PO BID PRN tablet MDD 1.5 07/23/19 Metoprolol Tartrate [Lopressor -] 50 mg PO BID 30 Days #60 tablet 07/23/19 Petrolatum - White [Vaseline -] 1 applic TP DAILY applic 07/23/19 Valsartan [Diovan] 40 mg PO DAILY 30 Days #30 tablet 07/23/19 Zinc Oxide 1 applic TP BID #1 tube 07/23/19 Zinc Oxide 1 applic TP DAILY #1 oint..gm. 07/23/19 REVIEW OF SYSTEMS: unable to obtain as pt is altered. PHYSICAL EXAMINATION Vital Signs - 24 hr 07/25/19 07/25/19 07/25/19 00:11 01:12 01:26 Temperature 99.0 F Pulse Rate 70 Pulse Rate [ 70 Radial] Respiratory 30 H 30 H Rate Blood Pressure 159/47 L Blood Pressure 164/49 L [Right Arm] O2 Sat by Pulse 88 L 92 L 95 Oximetry (%) 07/25/19 07/25/19 07/25/19 01:27 02:19 03:00 Temperature Pulse Rate Pulse Rate [ 64 81 Radial] Respiratory 30 H 30 H Rate Blood Pressure Blood Pressure 117/45 L 135/42 L [Right Arm] O2 Sat by Pulse 95 100 Oximetry (%) 07/25/19 07/25/19 03:22 03:25 Temperature Pulse Rate Pulse Rate [ 80 89 Radial] Respiratory 20 Rate Blood Pressure Blood Pressure 101/41 L 120/55 L [Right Arm] O2 Sat by Pulse 100 100 Oximetry (%) GENERAL: obtunded, difficult to arouse. on non rebreather HEAD: Normal with no signs of trauma. EYES: Pupils equal, round and reactive to light EARS, NOSE, THROAT: nares patent, oropharynx clear without exudates. Moist mucous membranes. NECK: supple without lymphadenopathy. LUNGS: Breath sounds decreased. no L breath sounds prior to intubation. use of accessory muscles. following intubation, vent sounds b/l HEART: Regular rate and rhythm, + S1 and S2 , systolic murmur ABDOMEN: Soft, not distended UPPER EXTREMITIES: 2+ pulses, warm, well-perfused. No cyanosis. No clubbing. No peripheral edema. LOWER EXTREMITIES: 2+ pulses, warm, well-perfused.1+ peripheral edema. SKIN: Warm, dry, normal turgor, no rashes or lesions noted, normal capillary refill. Laboratory Last Values WBC 15.5 K/mm3 (4.0-10.0) H 07/25/19 00:30 RBC 4.56 M/mm3 (3.60-5.2) 07/25/19 00:30 Hgb 13.5 GM/dL (10.7-15.3) 07/25/19 00:30 Hct 41.8 % (32.4-45.2) 07/25/19 00:30 MCV 91.8 fl (80-96) 07/25/19 00:30 MCH 29.6 pg (25.7-33.7) 07/25/19 00:30 MCHC 32.2 g/dl (32.0-36.0) 07/25/19 00:30 RDW 13.9 % (11.6-15.6) 07/25/19 00:30 Plt Count 410 K/MM3 (134-434) 07/25/19 00:30 MPV 10.0 fl (7.5-11.1) 07/25/19 00:30 Absolute Neuts (auto) 13.8 K/mm3 (1.5-8.0) H 07/25/19 00:30 Neutrophils % 88.6 % (42.8-82.8) H 07/25/19 00:30 Lymphocytes % 6.6 % (8-40) L D 07/25/19 00:30 Monocytes % 3.8 % (3.8-10.2) 07/25/19 00:30 Eosinophils % 0.1 % (0-4.5) 07/25/19 00:30 Basophils % 0.9 % (0-2.0) 07/25/19 00:30 Nucleated RBC % 0 % (0-0) 07/25/19 00:30 PT with INR 13.20 SEC (9.7-13.0) H 07/25/19 01:00 INR 1.12 (0.83-1.09) H 07/25/19 01:00 PTT (Actin FS) 28.7 SECONDS (25.2-36.5) 07/25/19 01:00 Anticoagulation Therapy No Result Required. 07/25/19 03:25 Puncture Site Left brachial 07/25/19 03:25 ABG pH 7.44 (7.35-7.45) 07/25/19 03:25 ABG pCO2 at Pt Temp 51.7 mmHg (35-45) H 07/25/19 03:25 ABG pO2 at Pt Temp 314 mmHg (80-100) H 07/25/19 03:25 ABG HCO3 34.1 mmol/L (22-27) H 07/25/19 03:25 ABG O2 Sat (Measured) 99.7 % (95-98) H 07/25/19 03:25 ABG O2 Content 17.9 % vol 07/25/19 03:25 ABG Base Excess 8.8 meq/l (-2-2) H 07/25/19 03:25 Roshan Test Positive 07/25/19 03:25 VBG pH 7.25 (7.31-7.41) L 07/25/19 00:30 POC VBG pCO2 84.2 mmHg (38-52) H* 07/25/19 00:30 POC VBG pO2 53.4 mmHg (28-48) H 07/25/19 00:30 VBG HCO3 35.7 mmol/L (23-29) H 07/25/19 00:30 VBG O2 Sat (Clara) 78.4 % (70-80) 07/25/19 00:30 VBG Base Excess 5.6 meq/l (-2-2) H 07/25/19 00:30 Carboxyhemoglobin 0.9 % (0-2) 07/25/19 03:25 Methemoglobin < 1.0 % (0-2) 07/25/19 03:25 [facility] 03:25 Oxygen Flow Rate 100% 07/25/19 03:25 Vent Mode A/c 07/25/19 03:25 Vent Rate 20 07/25/19 03:25 Mechanical Rate No Result Required. 07/25/19 03:25 PEEP 5.0 cmH2O 07/25/19 03:25 Pressure Support Vent 350 07/25/19 03:25 Sodium 141 mmol/L (136-145) 07/25/19 00:30 Potassium 3.7 mmol/L (3.5-5.1) 07/25/19 00:30 Chloride 100 mmol/L (98-107) 07/25/19 00:30 Carbon Dioxide 35 mmol/L (21-32) H 07/25/19 00:30 Anion Gap 7 MMOL/L (8-16) L 07/25/19 00:30 BUN 19.3 mg/dL (7-18) H 07/25/19 00:30 Creatinine 0.4 mg/dL (0.55-1.3) L 07/25/19 00:30 Est GFR (CKD-EPI)AfAm 109.31 07/25/19 00:30 Est GFR (CKD-EPI)NonAf 94.31 07/25/19 00:30 Random Glucose 173 mg/dL (74-106) H 07/25/19 00:30 Lactic Acid 2.2 mmol/L (0.4-2.0) H* 07/25/19 01:00 Calcium 9.3 mg/dL (8.5-10.1) 07/25/19 00:30 Total Bilirubin 0.8 mg/dL (0.2-1) 07/25/19 00:30 AST 26 U/L (15-37) 07/25/19 00:30 ALT 62 U/L (13-61) H 07/25/19 00:30 Alkaline Phosphatase 115 U/L (45-117) 07/25/19 00:30 Troponin I 0.03 ng/ml (0.00-0.05) 07/25/19 00:30 B-Natriuretic Peptide 4686.0 pg/ml (5-450) H 07/25/19 00:30 Total Protein 6.9 g/dl (6.4-8.2) 07/25/19 00:30 Albumin 3.6 g/dl (3.4-5.0) 07/25/19 00:30 ASSESSMENT/PLAN: 88 yo F PMH of HFpEF, HTN, depression, right CCA stenosis, chronic R subdural hematoma recently admitted to [facility] ( d/c on 07/23) presented to ED for shortness of breath. admitted to ICU for sepsis likely 2/2 aspiration pna, acute hypercapneic resp failure Acute hypoxic respiratory failure - pt intubated - follow ARDS settings - post intubation CXR shows improvement compared to initial XR sepsis 2/2 pneumonia - CXR shows b/l infiltrate -lactate 2.2 - empiric vanc/ zosyn in ED - c/w vanc, zosyn - gentle hydration - monitor vitals as pt may require central line and pressure support, maintain MAP>65 - pending duplex LE to r/o DVT - consider chest CT to better visualize pathology - ID recs appreciated -pending BCx, UCx, Sputum culture. HFpEF - hold lasix as BP is labile - Echo 06/2019: LV fxn normal, moderate mitral valve thickening, mod mitral regurg, mod AR -BNP 4686 -strict I/Os - daily weights HTN -hold antihypertensives, continue to monitor BP - maintain MAP > 65 Dispo: ICU FULL CODE Visit type - Emergency Visit Emergency Visit: Yes ED Registration Date: 07/25/19 Care time: The patient presented to the Emergency Department on the above date and was hospitalized for further evaluation of their emergent condition. - New Patient This patient is new to me today: Yes Date on this admission: 08/01/19 - Critical Care Critical Care patient: Yes Total Critical Care Time (in minutes): 36 Critical Care Statement: The care of this patient involved high complexity decision making to prevent further life threatening deterioration of the patient 's condition and/or to evaluate & treat vital organ system(s) failure or risk of failure. ATTENDING PHYSICIAN STATEMENT I saw and evaluated the patient. I reviewed the resident's note and discussed the case with the resident. I agree with the resident's findings and plan as documented. SUBJECTIVE: OBJECTIVE: ASSESSMENT AND PLAN:
--- NOTE | 2019-07-25 04:27 | PN ---
Teaching Attending Note Name of Resident: Gayle Ferrell ATTENDING PHYSICIAN STATEMENT I saw and evaluated the patient. I reviewed the resident's note and discussed the case with the resident. I agree with the resident's findings and plan as documented. SUBJECTIVE: This is an 88 year old woman with a history of HTN, CAD, chronic diastolic heart failure, NSVT, PSVT, AR, TR, moderate pulm HTN, depression, chronic subdural hematoma who comes to the ED because of dyspnea. She had been admitted 07/07-07/09 for a fall, pneumonia, and CHF. She refused subacute rehab and was discharged home with home PT. She returned on 07/11 and was admitted for acute hypoxic and hypercapneic respiratory failure and septic shock secondary to pneumonia. She was treated with cefepime and vancomycin, and she required intubation and pressors. She developed a right pneumothorax during central line placement, and so she needed a chest tube. At discharge, she again refused subacute rehab and was discharged home on 07/23 with home care services. Her aide reported that she was unable to sleep after returning home. Today, while getting the patient into a chair, she noticed she was dyspneic and tachypneic. The patient was not able to provide a history when she arrived in the ED and she is now intubated. OBJECTIVE: Vital Signs Period Temp Pulse Resp BP Sys/Da Silva Pulse Ox Last 24 Hr 99.0 F 64-89 20-30 101-164/41-55 88-100 HEART: S1S2, RRR LUNGS: Bilateral ventilated BS, scattered crackles ABDOMEN: Soft, non-distended, normal BS EXTREMITIES: No edema Laboratory Tests 07/25/19 07/25/19 07/25/19 00:30 00:30 00:30 WBC 15.5 H RBC 4.56 Hgb 13.5 Hct 41.8 MCV 91.8 MCH 29.6 MCHC 32.2 RDW 13.9 Plt Count 410 MPV 10.0 Absolute Neuts (auto) 13.8 H Neutrophils % 88.6 H Lymphocytes % 6.6 L D Monocytes % 3.8 Eosinophils % 0.1 Basophils % 0.9 Nucleated RBC % 0 PT with INR INR PTT (Actin FS) Anticoagulation Therapy Puncture Site ABG pH ABG pCO2 at Pt Temp ABG pO2 at Pt Temp ABG HCO3 ABG O2 Sat (Measured) ABG O2 Content ABG Base Excess Roshan Test VBG pH POC VBG pCO2 POC VBG pO2 VBG HCO3 VBG O2 Sat (Clara) VBG Base Excess Carboxyhemoglobin Methemoglobin O2 Delivery Device Oxygen Flow Rate Vent Mode Vent Rate Mechanical Rate PEEP Pressure Support Vent Sodium 141 Potassium 3.7 Chloride 100 Carbon Dioxide 35 H Anion Gap 7 L BUN 19.3 H Creatinine 0.4 L Est GFR (CKD-EPI)AfAm 109.31 Est GFR (CKD-EPI)NonAf 94.31 Random Glucose 173 H Lactic Acid Calcium 9.3 Total Bilirubin 0.8 AST 26 ALT 62 H Alkaline Phosphatase 115 Troponin I 0.03 B-Natriuretic Peptide 4686.0 H Total Protein 6.9 Albumin 3.6 07/25/19 07/25/19 07/25/19 00:30 01:00 01:00 WBC RBC Hgb Hct MCV MCH MCHC RDW Plt Count MPV Absolute Neuts (auto) Neutrophils % Lymphocytes % Monocytes % Eosinophils % Basophils % Nucleated RBC % PT with INR 13.20 H INR 1.12 H PTT (Actin FS) 28.7 Anticoagulation Therapy Puncture Site ABG pH ABG pCO2 at Pt Temp ABG pO2 at Pt Temp ABG HCO3 ABG O2 Sat (Measured) ABG O2 Content ABG Base Excess Roshan Test VBG pH 7.25 L POC VBG pCO2 84.2 H* POC VBG pO2 53.4 H VBG HCO3 35.7 H VBG O2 Sat (Clara) 78.4 VBG Base Excess 5.6 H Carboxyhemoglobin Methemoglobin O2 Delivery Device Oxygen Flow Rate Vent Mode Vent Rate Mechanical Rate PEEP Pressure Support Vent Sodium Potassium Chloride Carbon Dioxide Anion Gap BUN Creatinine Est GFR (CKD-EPI)AfAm Est GFR (CKD-EPI)NonAf Random Glucose Lactic Acid 2.2 H* Calcium Total Bilirubin AST ALT Alkaline Phosphatase Troponin I B-Natriuretic Peptide Total Protein Albumin 07/25/19 03:25 WBC RBC Hgb Hct MCV MCH MCHC RDW Plt Count MPV Absolute Neuts (auto) Neutrophils % Lymphocytes % Monocytes % Eosinophils % Basophils % Nucleated RBC % PT with INR INR PTT (Actin FS) Anticoagulation Therapy No Result Required. Puncture Site Left brachial ABG pH 7.44 ABG pCO2 at Pt Temp 51.7 H ABG pO2 at Pt Temp 314 H ABG HCO3 34.1 H ABG O2 Sat (Measured) 99.7 H ABG O2 Content 17.9 ABG Base Excess 8.8 H Roshan Test Positive VBG pH POC VBG pCO2 POC VBG pO2 VBG HCO3 VBG O2 Sat (Clara) VBG Base Excess Carboxyhemoglobin 0.9 Methemoglobin < 1.0 O2 Delivery Device Mech vent Oxygen Flow Rate 100% Vent Mode A/c Vent Rate 20 Mechanical Rate No Result Required. PEEP 5.0 Pressure Support Vent 350 Sodium Potassium Chloride Carbon Dioxide Anion Gap BUN Creatinine Est GFR (CKD-EPI)AfAm Est GFR (CKD-EPI)NonAf Random Glucose Lactic Acid Calcium Total Bilirubin AST ALT Alkaline Phosphatase Troponin I B-Natriuretic Peptide Total Protein Albumin Home Medications Medication Instructions Recorded Sertraline HCl 50 mg PO DAILY 07/07/19 Calcium 500Mg/Vit-D 200 Units 1 tab PO BID 30 Days #60 tab 07/08/19 [Os-Silvio 500+D -] Albuterol Sulfate Inhaler - 1 puff IH Q4H PRN #1 inhaler 07/23/19 [Ventolin HFA Inhaler -] Aspirin 81 mg PO DAILY #30 tab.chew 07/23/19 Furosemide 20 mg PO DAILY 30 Days #30 tablet 07/23/19 Hydrocortisone 1% Ointment [Hytone 1 applic TP DAILY #1 tube 07/23/19 1% Ointment -] LORazepam [Ativan] 0.5 mg PO BID PRN tablet MDD 1.5 07/23/19 Metoprolol Tartrate [Lopressor -] 50 mg PO BID 30 Days #60 tablet 07/23/19 Petrolatum - White [Vaseline -] 1 applic TP DAILY applic 07/23/19 Valsartan [Diovan] 40 mg PO DAILY 30 Days #30 tablet 07/23/19 Zinc Oxide 1 applic TP BID #1 tube 07/23/19 Zinc Oxide 1 applic TP DAILY #1 oint..gm. 07/23/19 ASSESSMENT AND PLAN: This is an 88 year old woman with a history of HTN, CAD, chronic diastolic heart failure, NSVT, PSVT, AR, TR, moderate pulm HTN, depression, chronic subdural hematoma who presented to the ED with dyspnea one day after being discharged home after treatment for acute hypoxic and hypercapneic respiratory failure and septic shock secondary to pneumonia. 1. Acute hypoxic and hypercapneic respiratory failure - Intubated - Ventilator management as per pulmonary/critical care 2. Severe sepsis (leukocytosis, tachypnea, lactic acid 2.2) secondary to pneumonia - Continue Zosyn, vancomycin - Follow-up blood cultures, sputum culture - IV fluid and watch for fluid overload/CHF - ID consult for antibiotic selection 3. CAD - Continue aspirin - Hold Lopressor secondary to hypotension 4. Chronic diastolic heart failure - Appears euvolemic - Hold Lasix secondary to hypotension - Watch for fluid overload with IV fluid being given for sepsis/hypotension 5. HTN - Hold Lopressor, Diovan, Lasix secondary to hypotension 6. Pulmonary HTN 7. History of NSVT, PSVT 8. Depression - Continue Zoloft 9. Chronic subdural hematoma The care of this patient involved high complexity decision making to prevent further life threatening deterioration of the patient's condition and/or to evaluate & treat vital organ system(s) failure or risk of failure. Critical care time spent in reviewing chart, evaluating patient and formulating plan - 60 minutes.
[2019-07-25] MEDS ORDERED: POTASSIUM CHLORIDE 10 MEQ in SODIUM CHLORIDE 1,000 ML IVPB SCH ×2 (04:30→08:36)
[2019-07-25] MEDS ORDERED: SODIUM CHLORIDE 1,000 ML IV SCH (05:30)
--- NOTE | 2019-07-25 05:53 | CONSULT ---
Consult Consult Specialty:: Pulm/CCM Reason for Consultation:: Hypoxemic/hypercarbic Respiratory Failure s/p intubation - History of Present Illness Chief Complaint: SOB History of Present Illness: 88 yoF with PMH of HFpEF, HTN, depression, right CCA stenosis, chronic R subdural hematoma, recently admitted to [facility] for hypoxic hypercapneic respiratory failure and sepsis 2/2 PNA and UTI (d/c 07/23) now brought in by [employer] with report of dyspnea, found to be in hypoxic /hypercarbic respiratory failure requiring intubation and sedation in the ED m/l 2/2 recurrent PNA and being transferred to ICU for further management. In the ED labs notable for WBC 15.5, 88.6 neuts, Lact 2.2, BNP 4686, VBG 7.25, 84, 53.support. CXR s/f bilat infiltrates. Of note her previous hospital course was complicated by a pneumothorax and chest tube placement and recently completed a course of cefepime. - History Source Limitations to Obtaining History: Other (Sedation) - Past Medical History Cardio/Vascular: Yes: HTN Psych: Yes: Depression - Alcohol/Substance Use Hx Alcohol Use: No History of Substance Use: reports: None - Smoking History Smoking history: Unknown if ever smoked Have you smoked in the past 12 months: No Aproximately how many cigarettes per day: 0 Home Medications - Allergies Allergies/Adverse Reactions: Allergies Allergy/AdvReac Type Severity Reaction Status Date / Time No Known Allergies Allergy Verified 07/25/19 00:17 - Home Medications Home Medications: Ambulatory Orders Sertraline HCl 50 mg PO DAILY 07/07/19 Calcium 500Mg/Vit-D 200 Units [Os-Silvio 500+D -] 1 tab PO BID 30 Days #60 tab Albuterol Sulfate Inhaler - [Ventolin HFA Inhaler -] 1 puff IH Q4H PRN #1 inhaler 07/23/19 Aspirin 81 mg PO DAILY #30 tab.chew 07/23/19 Furosemide 20 mg PO DAILY 30 Days #30 tablet 07/23/19 Hydrocortisone 1% Ointment [Hytone 1% Ointment -] 1 applic TP DAILY #1 tube LORazepam [Ativan] 0.5 mg PO BID PRN tablet MDD 1.5 07/23/19 Metoprolol Tartrate [Lopressor -] 50 mg PO BID 30 Days #60 tablet 07/23/19 Petrolatum - White [Vaseline -] 1 applic TP DAILY applic 07/23/19 Valsartan [Diovan] 40 mg PO DAILY 30 Days #30 tablet 07/23/19 Zinc Oxide 1 applic TP BID #1 tube 07/23/19 Zinc Oxide 1 applic TP DAILY #1 oint..gm. 07/23/19 Family Medical History Family History: Unable to Obtain Review of Systems Unable to obtain ROS, reason: Intubated and sedated Physical Exam Vital Signs: Vital Signs Temperature 99.0 F 07/25/19 00:11 Pulse Rate 71 07/25/19 04:08 Respiratory Rate 20 07/25/19 05:41 Blood Pressure 166/51 L 07/25/19 04:08 O2 Sat by Pulse Oximetry (%) 100 07/25/19 04:08 Constitutional: Yes: No Distress, Thin Eyes: Yes: Conjunctiva Clear, PERRL HENT: Yes: Atraumatic, Normocephalic Neck: Yes: Supple, Trachea Midline Cardiovascular: Yes: Regular Rate and Rhythm, Murmur, S1, S2 Respiratory: Yes: Intubated, Mechanically Ventilated, Rales Gastrointestinal: Yes: Soft, Hypoactive Bowel Sounds Renal/: Yes: Mills Present Musculoskeletal: Yes: WNL Extremities: Yes: WNL Edema: No Peripheral Pulses WNL: Yes Integumentary: Yes: WNL, Other (Incontinent dermatitis) Neurological: Yes: Other (RASS-3 on Fent drip) Labs: CBC, BMP 07/25/19 00:30 07/25/19 00:30 Imaging - Results X-ray: Report Reviewed (Bilateral infiltrates) Problem List - Problems (1) Hypercarbia Code(s): R06.89 - OTHER ABNORMALITIES OF BREATHING (2) Acute respiratory failure with hypoxia and hypercarbia Code(s): J96.01 - ACUTE RESPIRATORY FAILURE WITH HYPOXIA; J96.02 - ACUTE RESPIRATORY FAILURE WITH HYPERCAPNIA (3) Acute diastolic heart failure Code(s): I50.31 - ACUTE DIASTOLIC (CONGESTIVE) HEART FAILURE (4) Respiratory failure Code(s): J96.90 - RESPIRATORY FAILURE, UNSP, UNSP W HYPOXIA OR HYPERCAPNIA Qualifiers: Chronicity: acute Respiratory failure complication: hypoxia and hypercapnia Qualified Code(s): J96.01 - Acute respiratory failure with hypoxia ; J96.02 - Acute respiratory failure with hypercapnia Assessment/Plan 88 yoF with PMH of HFpEF, HTN, depression, right CCA stenosis, chronic R subdural hematoma with recent intubation for hypoxic/hypercarbic respiratory failure 2/2 PNA c/b PTX now readmitted with HAP +/- CHF exacerbation requiring intubation. -LTVV mech vent with plat goal <30 -Wean FiO2 as [place] for O2 sat >92% -Pulm toilet -Duonebs -F/u cultures -Cont Zosyn, vanco for now -ID consult, may need escalation to meropenem given recently completed Cefepime course -Sedation for vent synchrony -Fluid goal net even to negative as BP allows -TTE -Mills cath -NGT for feeds and meds -GI and DVT prophylaxis Yvrose Barrientos, ACNP-BC 45mins
[2019-07-25] MEDS ORDERED: LACTATED RINGERS SOLUTION 1,000 ML/1,000 ML INFUS.BAG IV SCH (06:30)
[2019-07-25] MEDS: FENTANYL INJECTION 500 MCG in DEXTROSE 5%-WATER - 90 ML IVPB SCH (06:45)
[2019-07-25] MEDS ORDERED: PIPERACILLIN/TAZOB 4.5 GM 4.5 GM in DEXTROSE 5%-WATER 100 ML IVPB SCH ×3 (09:00)
[2019-07-25] MEDS ORDERED: DEXTROSE 5%-WATER 100 ML IVPB ONE (09:08)
[2019-07-25] MEDS ORDERED: PIPERACILLIN/TAZOBACTAM 4.5 GM VIAL IVPB ONE (09:08)
[2019-07-25] MEDS ORDERED: PT OWN MED DRAWER 7, Y5N ONE (10:11)
[2019-07-25] MEDS: MUPIROCIN 2% TOPICAL OINTMENT FOR DECOLONIZATION NS SCH ×2 (10:13→21:19)
[2019-07-25 10:42] LABS: URINE COLOR YELLOW
[2019-07-25 10:43] LABS: URINE APPEARANCE CLOUDY; URINE BILIRUBIN NEGATIVE (NEGATIVE); URINE GLUCOSE (UA) NEGATIVE (NEGATIVE); URINE KETONE NEGATIVE (NEGATIVE); URINE PROTEIN 300 (NEGATIVE)
[2019-07-25 10:44] LABS: EPI CELLS 13 /HPF (0-5/HPF); HYALINE CASTS 527.13 /lpf (0-8); URINE BACTERIA 5.9 /hpf (NEGATIVE); URINE LEUK ESTERASE NEGATIVE (NEGATIVE); URINE NITRITE NEGATIVE (NEGATIVE); URINE RBC 5.5 /hpf (0-4); URINE WBC 2.6 /hpf (0-5)
--- NOTE | 2019-07-25 10:44 | PN ---
Teaching Attending Note Name of Resident: Alexandra Ochoa ATTENDING PHYSICIAN STATEMENT I saw and evaluated the patient. I reviewed the resident's note and discussed the case with the resident. I agree with the resident's findings and plan as documented. SUBJECTIVE: Patient seen and examined in the ICU. Intubated, awake and alert and able to follow commands. No pressors. CXR: improving bilateral infiltrates Intake & Output 07/22/19 07/23/19 07/24/19 07/25/19 23:59 23:59 23:59 23:59 Output Total 110 Balance -110 Weight 97 lb 1.6 oz Last Vital Signs Temp Pulse Resp BP Pulse Ox 98.0 F 77 22 H 144/36 L 100 07/25/19 10:00 07/25/19 10:00 07/25/19 10:00 07/25/19 10:00 07/25/19 05:52 Active Medications Chlorhexidine Gluconate (Hibiclens For Decolonization -) 1 applic TP HS LISA Heparin Sodium (Porcine) (Heparin -) 5,000 unit SQ TID LISA Fentanyl 500 mcg/ Dextrose 100 mls @ 5 mls/hr IVPB TITR LISA Last Admin: 07/25/19 06:45 Dose: 25 mcg/hr, 5 mls/hr Sodium Chloride (Normal Saline -) 1,000 mls @ 42 mls/hr IV ASDIR LISA Last Admin: 07/25/19 06:09 Dose: 42 mls/hr Lactated Ringer's (Lactated Ringers Solution) 1,000 ml in 1,000 mls @ 25 mls/ hr IV ASDIR LISA Last Admin: 07/25/19 06:47 Dose: 25 mls/hr Potassium Chloride 10 meq/ (Sodium Chloride) 1,005 mls @ 42 mls/hr IVPB Q24H LISA Last Admin: 07/25/19 08:59 Dose: 42 mls/hr Piperacillin Sod/Tazobactam (Sod 4.5 gm/ Dextrose) 100 mls @ 200 mls/hr IVPB Q6H-IV LISA; Protocol Stop: 07/25/19 21:29 Last Admin: 07/25/19 09:10 Dose: 200 mls/hr Piperacillin Sod/Tazobactam (Sod 4.5 gm/ Dextrose) 100 mls @ 200 mls/hr IVPB Q6H-IV LISA; Protocol Mupirocin (Bactroban Ointment (For Decolonization) -) 1 applic NS BID LISA Stop: 07/30/19 09:59 Last Admin: 07/25/19 10:13 Dose: 1 applic Vancomycin HCl (Vancomycin (Pre-Docked)) 1,000 mg IVPB Q24H LISA; Protocol Constitutional: Yes: Intubated, Awake and alert, Thin Eyes: Yes: Conjunctiva Clear, PERRL HENT: Yes: Atraumatic, Normocephalic Neck: Yes: Supple, Trachea Midline Cardiovascular: Yes: Regular Rate and Rhythm, Murmur, S1, S2 Respiratory: Yes: Intubated, Mechanically Ventilated, Bibasilar Rales Gastrointestinal: Yes: Soft, (+) Bowel Sounds Renal/: Yes: Mills Present Musculoskeletal: Yes: WNL Extremities: Yes: WNL Edema: No Peripheral Pulses WNL: Yes Integumentary: Yes: WNL, Other (Incontinent dermatitis) Neurological: Yes: Non-focal Labs: Laboratory Results - last 24 hr 07/25/19 07/25/19 07/25/19 00:30 00:30 00:30 WBC 15.5 H RBC 4.56 Hgb 13.5 Hct 41.8 MCV 91.8 MCH 29.6 MCHC 32.2 RDW 13.9 Plt Count 410 MPV 10.0 Absolute Neuts (auto) 13.8 H Neutrophils % 88.6 H Lymphocytes % 6.6 L D Monocytes % 3.8 Eosinophils % 0.1 Basophils % 0.9 Nucleated RBC % 0 PT with INR INR PTT (Actin FS) Anticoagulation Therapy Puncture Site ABG pH ABG pCO2 at Pt Temp ABG pO2 at Pt Temp ABG HCO3 ABG O2 Sat (Measured) ABG O2 Content ABG Base Excess Roshan Test VBG pH POC VBG pCO2 POC VBG pO2 VBG HCO3 VBG O2 Sat (Clara) VBG Base Excess Carboxyhemoglobin Methemoglobin O2 Delivery Device Oxygen Flow Rate Vent Mode Vent Rate Mechanical Rate PEEP Pressure Support Vent Sodium 141 Potassium 3.7 Chloride 100 Carbon Dioxide 35 H Anion Gap 7 L BUN 19.3 H Creatinine 0.4 L Est GFR (CKD-EPI)AfAm 109.31 Est GFR (CKD-EPI)NonAf 94.31 Random Glucose 173 H Lactic Acid Calcium 9.3 Total Bilirubin 0.8 AST 26 ALT 62 H Alkaline Phosphatase 115 Troponin I 0.03 B-Natriuretic Peptide 4686.0 H Total Protein 6.9 Albumin 3.6 07/25/19 07/25/19 07/25/19 00:30 01:00 01:00 WBC RBC Hgb Hct MCV MCH MCHC RDW Plt Count MPV Absolute Neuts (auto) Neutrophils % Lymphocytes % Monocytes % Eosinophils % Basophils % Nucleated RBC % PT with INR 13.20 H INR 1.12 H PTT (Actin FS) 28.7 Anticoagulation Therapy Puncture Site ABG pH ABG pCO2 at Pt Temp ABG pO2 at Pt Temp ABG HCO3 ABG O2 Sat (Measured) ABG O2 Content ABG Base Excess Roshan Test VBG pH 7.25 L POC VBG pCO2 84.2 H* POC VBG pO2 53.4 H VBG HCO3 35.7 H VBG O2 Sat (Clara) 78.4 VBG Base Excess 5.6 H Carboxyhemoglobin Methemoglobin O2 Delivery Device Oxygen Flow Rate Vent Mode Vent Rate Mechanical Rate PEEP Pressure Support Vent Sodium Potassium Chloride Carbon Dioxide Anion Gap BUN Creatinine Est GFR (CKD-EPI)AfAm Est GFR (CKD-EPI)NonAf Random Glucose Lactic Acid 2.2 H* Calcium Total Bilirubin AST ALT Alkaline Phosphatase Troponin I B-Natriuretic Peptide Total Protein Albumin 07/25/19 07/25/19 03:25 08:25 WBC RBC Hgb Hct MCV MCH MCHC RDW Plt Count MPV Absolute Neuts (auto) Neutrophils % Lymphocytes % Monocytes % Eosinophils % Basophils % Nucleated RBC % PT with INR INR PTT (Actin FS) Anticoagulation Therapy No Result Required. Puncture Site Left brachial ABG pH 7.44 ABG pCO2 at Pt Temp 51.7 H ABG pO2 at Pt Temp 314 H ABG HCO3 34.1 H ABG O2 Sat (Measured) 99.7 H ABG O2 Content 17.9 ABG Base Excess 8.8 H Roshan Test Positive VBG pH POC VBG pCO2 POC VBG pO2 VBG HCO3 VBG O2 Sat (Clara) VBG Base Excess Carboxyhemoglobin 0.9 Methemoglobin < 1.0 O2 Delivery Device Mech vent Oxygen Flow Rate 100% Vent Mode A/c Vent Rate 20 Mechanical Rate No Result Required. PEEP 5.0 Pressure Support Vent 350 Sodium Potassium Chloride Carbon Dioxide Anion Gap BUN Creatinine Est GFR (CKD-EPI)AfAm Est GFR (CKD-EPI)NonAf Random Glucose Lactic Acid 2.2 H* Calcium Total Bilirubin AST ALT Alkaline Phosphatase Troponin I B-Natriuretic Peptide Total Protein Albumin Problem List - Problems (1) Hypercarbia Code(s): R06.89 - OTHER ABNORMALITIES OF BREATHING (2) Acute respiratory failure with hypoxia and hypercarbia Code(s): J96.01 - ACUTE RESPIRATORY FAILURE WITH HYPOXIA; J96.02 - ACUTE RESPIRATORY FAILURE WITH HYPERCAPNIA (3) Acute diastolic heart failure Code(s): I50.31 - ACUTE DIASTOLIC (CONGESTIVE) HEART FAILURE (4) Respiratory failure Code(s): J96.90 - RESPIRATORY FAILURE, UNSP, UNSP W HYPOXIA OR HYPERCAPNIA Qualifiers: Chronicity: acute Respiratory failure complication: hypoxia and hypercapnia Qualified Code(s): J96.01 - Acute respiratory failure with hypoxia ; J96.02 - Acute respiratory failure with hypercapnia Assessment/Plan HFpEF HTN Depression Right CCA stenosis Chronic Right subdural hematoma History of Right Iatrogenic PTX on last admission Wean trials to extubate DC IVF ABX per ID Daily weights Strict I & O Follow cultures BD TX VTE prophylaxis Requires ICU monitoring Dr Pemberton Critical care time spent in reviewing chart, evaluating patient and formulating plan - 36 minutes.
[2019-07-25 10:48] LABS: INR 1.16 (0.83-1.09); PROTHROMBIN TIME (PATIENT) 13.7 SEC (9.7-13.0)
[2019-07-25 10:51] LABS: ACTIVATED PTT 30.7 SECONDS (25.2-36.5)
--- NOTE | 2019-07-25 11:19 | PN ---
Physical Exam: SUBJECTIVE: Patient seen and examined in the morning. Patient was admitted overnight, intubated in the field, and brought up to ICU for higher level of care. Was on fentanyl drip, but patient was arousable, and responsive. Denies any chest pain and abdominal pain. OBJECTIVE: Vital Signs Period Temp Pulse Resp BP Sys/Da Silva Pulse Ox Last 24 Hr 97 F-99.0 F 64-89 20-30 92-166/27-55 88-100 GENERAL: The patient is resting comfortably. Is on Fentanyl drip but arousable and alert. HEAD: Normal with no signs of trauma. EYES: PERRLA ENT: ET tube in place. LUNGS: Crackles present. HEART: Regular rate and rhythm, S1, S2 without murmur, rub or gallop. ABDOMEN: Soft, nontender, nondistended, normoactive bowel sounds. EXTREMITIES: 2+ pulses, warm, well-perfused, no edema. PSYCH: Normal mood, normal affect. SKIN: Warm, dry, normal turgor, no rashes or lesions noted Laboratory Results - last 24 hr 07/25/19 07/25/19 07/25/19 00:30 00:30 00:30 WBC 15.5 H RBC 4.56 Hgb 13.5 Hct 41.8 MCV 91.8 MCH 29.6 MCHC 32.2 RDW 13.9 Plt Count 410 MPV 10.0 Absolute Neuts (auto) 13.8 H Neutrophils % 88.6 H Lymphocytes % 6.6 L D Monocytes % 3.8 Eosinophils % 0.1 Basophils % 0.9 Nucleated RBC % 0 PT with INR INR PTT (Actin FS) Anticoagulation Therapy Puncture Site ABG pH ABG pCO2 at Pt Temp ABG pO2 at Pt Temp ABG HCO3 ABG O2 Sat (Measured) ABG O2 Content ABG Base Excess Roshan Test VBG pH POC VBG pCO2 POC VBG pO2 VBG HCO3 VBG O2 Sat (Clara) VBG Base Excess Carboxyhemoglobin Methemoglobin O2 Delivery Device Oxygen Flow Rate Vent Mode Vent Rate Mechanical Rate PEEP Pressure Support Vent Sodium 141 Potassium 3.7 Chloride 100 Carbon Dioxide 35 H Anion Gap 7 L BUN 19.3 H Creatinine 0.4 L Est GFR (CKD-EPI)AfAm 109.31 Est GFR (CKD-EPI)NonAf 94.31 Random Glucose 173 H Lactic Acid Calcium 9.3 Total Bilirubin 0.8 AST 26 ALT 62 H Alkaline Phosphatase 115 Troponin I 0.03 B-Natriuretic Peptide 4686.0 H Total Protein 6.9 Albumin 3.6 Urine Color Urine Appearance Urine pH Ur Specific [place] Urine Protein Urine Glucose (UA) Urine Ketones Urine Blood Urine Nitrite Urine Bilirubin Urine Urobilinogen Ur Leukocyte Esterase Urine WBC (Auto) Urine RBC (Auto) Urine Casts (Auto) U Epithel Cells (Auto) Urine Bacteria (Auto) 07/25/19 07/25/19 07/25/19 00:30 01:00 01:00 WBC RBC Hgb Hct MCV MCH MCHC RDW Plt Count MPV Absolute Neuts (auto) Neutrophils % Lymphocytes % Monocytes % Eosinophils % Basophils % Nucleated RBC % PT with INR 13.70 H INR 1.16 H PTT (Actin FS) 30.7 Anticoagulation Therapy Puncture Site ABG pH ABG pCO2 at Pt Temp ABG pO2 at Pt Temp ABG HCO3 ABG O2 Sat (Measured) ABG O2 Content ABG Base Excess Roshan Test VBG pH 7.25 L POC VBG pCO2 84.2 H* POC VBG pO2 53.4 H VBG HCO3 35.7 H VBG O2 Sat (Clara) 78.4 VBG Base Excess 5.6 H Carboxyhemoglobin Methemoglobin O2 Delivery Device Oxygen Flow Rate Vent Mode Vent Rate Mechanical Rate PEEP Pressure Support Vent Sodium Potassium Chloride Carbon Dioxide Anion Gap BUN Creatinine Est GFR (CKD-EPI)AfAm Est GFR (CKD-EPI)NonAf Random Glucose Lactic Acid 2.2 H* Calcium Total Bilirubin AST ALT Alkaline Phosphatase Troponin I B-Natriuretic Peptide Total Protein Albumin Urine Color Urine Appearance Urine pH Ur Specific [place] Urine Protein Urine Glucose (UA) Urine Ketones Urine Blood Urine Nitrite Urine Bilirubin Urine Urobilinogen Ur Leukocyte Esterase Urine WBC (Auto) Urine RBC (Auto) Urine Casts (Auto) U Epithel Cells (Auto) Urine Bacteria (Auto) 07/25/19 07/25/19 07/25/19 03:25 06:00 08:25 WBC RBC Hgb Hct MCV MCH MCHC RDW Plt Count MPV Absolute Neuts (auto) Neutrophils % Lymphocytes % Monocytes % Eosinophils % Basophils % Nucleated RBC % PT with INR INR PTT (Actin FS) Anticoagulation Therapy No Result Required. Puncture Site Left brachial ABG pH 7.44 ABG pCO2 at Pt Temp 51.7 H ABG pO2 at Pt Temp 314 H ABG HCO3 34.1 H ABG O2 Sat (Measured) 99.7 H ABG O2 Content 17.9 ABG Base Excess 8.8 H Roshan Test Positive VBG pH POC VBG pCO2 POC VBG pO2 VBG HCO3 VBG O2 Sat (Clara) VBG Base Excess Carboxyhemoglobin 0.9 Methemoglobin < 1.0 O2 Delivery Device Mech vent Oxygen Flow Rate 100% Vent Mode A/c Vent Rate 20 Mechanical Rate No Result Required. PEEP 5.0 Pressure Support Vent 350 Sodium Potassium Chloride Carbon Dioxide Anion Gap BUN Creatinine Est GFR (CKD-EPI)AfAm Est GFR (CKD-EPI)NonAf Random Glucose Lactic Acid 2.2 H* Calcium Total Bilirubin AST ALT Alkaline Phosphatase Troponin I B-Natriuretic Peptide Total Protein Albumin Urine Color Yellow Urine Appearance Cloudy Urine pH 6.0 Ur Specific [place] 1.041 H Urine Protein 300 Urine Glucose (UA) Negative Urine Ketones Negative Urine Blood Small Urine Nitrite Negative Urine Bilirubin Negative Urine Urobilinogen 1.0 Ur Leukocyte Esterase Negative Urine WBC (Auto) 2.6 Urine RBC (Auto) 5.5 Urine Casts (Auto) 527.13 U Epithel Cells (Auto) 13 Urine Bacteria (Auto) 5.9 Active Medications Generic Name Dose Route Start Last Admin Trade Name Freq PRN Reason Stop Dose Admin Chlorhexidine Gluconate 1 applic 07/25/19 22:00 Hibiclens For Decolonization - TP HS LISA Heparin Sodium (Porcine) 5,000 unit 07/25/19 14:00 Heparin - SQ TID LISA Fentanyl 500 mcg/ Dextrose 100 mls @ 5 mls/hr 07/25/19 03:30 07/25/19 06:45 IVPB 25 mcg/hr TITR LISA 5 mls/hr Administration 25 MCG/HR Sodium Chloride 1,000 mls @ 42 mls/hr 07/25/19 05:30 07/25/19 06:09 Normal Saline - IV 42 mls/hr ASDIR LISA Administration Lactated Ringer's 1,000 ml in 1,000 mls @ 25 mls/hr 07/25/19 06:30 07/25/19 06:47 Lactated Ringers Solution IV 25 mls/hr ASDIR LISA Administration Potassium Chloride 10 meq/ 1,005 mls @ 42 mls/hr 07/25/19 08:36 07/25/19 08: 59 Sodium Chloride IVPB 42 mls/hr Q24H LISA Administration Piperacillin Sod/Tazobactam 50 mls @ 100 mls/hr 07/25/19 11:15 Sod 3.375 gm/ Dextrose IVPB Q8H-IV LISA Protocol Mupirocin 1 applic 07/25/19 10:00 07/25/19 10:13 Bactroban Ointment (For Decolonization) - NS 07/30/19 09:59 1 applic BID LISA Administration ASSESSMENT/PLAN: 88F with PMH of HFpEF, HTN, depressin, right CA stenosis, chronic R. subdural hematoma, recent intubation for hypoxic/hypercarbic respiratory failure secondary to PNA, recent d/c from hospital 07/23, who presented with shortness of breath and required intubation. Was extubated on 07/25 and put on high flow oxygen. Neuro -Patient is now off of fentanyl drip and extubated. -Will continue to monitor mental status Cardiovascular -Patient has Hx of HFpEF and HTN -Patient was hypotensive on admission, with decreased MAPs -Troponin of 0.03 -Strict I&O -BNP of 4686, was [address]179 on previous admission. -Patient MAP of 59 -Holding anti-hypertensive meds -Lasix BID ordered, will manage as CVP monitoring guides. Pulm -Was intubated in the ED. Extubated on 07/25. -Chest X-Ray shows b/l pleural effusions and congestion -Vanc/zoysn was given due to infiltrate seen on initial x-ray. -Will continue on high flow oxygen -Duonebs PRN -Albuterol nebulizer PRN ID -Vancomycin/Zoysn given -Possible aspiration event may have precipitated respiratory failure -F/U Cultures GI -No issues currently. Will continue to monitor Renal -Creatinine of 0.4 -Will continue to monitor DVT: Heparin SQ F: Oral Hydration E: Monitor CMP N: Full Liquid diet Dispo: ICU monitoring Visit type - Emergency Visit Emergency Visit: Yes ED Registration Date: 07/25/19 Care time: The patient presented to the Emergency Department on the above date and was hospitalized for further evaluation of their emergent condition. - New Patient This patient is new to me today: Yes Date on this admission: 07/25/19 - Critical Care Critical Care patient: Yes Total Critical Care Time (in minutes): 45 Critical Care Statement: The care of this patient involved high complexity decision making to prevent further life threatening deterioration of the patient 's condition and/or to evaluate & treat vital organ system(s) failure or risk of failure. ATTENDING PHYSICIAN STATEMENT I saw and evaluated the patient. I reviewed the resident's note and discussed the case with the resident. I agree with the resident's findings and plan as documented. SUBJECTIVE: OBJECTIVE: ASSESSMENT AND PLAN:
[2019-07-25] MEDS: PIPERACILLIN/TAZOB 3.375 GM 3.375 GM in DEXTROSE 5%-WATER - 50 ML IVPB SCH ×2 (11:26→17:05)
--- NOTE | 2019-07-25 11:27 | EKG ---
Test Reason : Blood Pressure : / mmHG Vent. Rate : 066 BPM Atrial Rate : 066 BPM P-R Int : 144 ms QRS Dur : 094 ms QT Int : 444 ms P-R-T Axes : 052 104 052 degrees QTc Int : 465 ms NORMAL SINUS RHYTHM BORDERLINE ECG WHEN COMPARED WITH ECG OF 12-JUL-2019 09:20, T WAVE VARIATION Confirmed by DALJIT CERRATO MD ([id number]) on 07/25/2019 11:27:24 AM Referred By: Confirmed By:DALJIT CERRATO MD
[2019-07-25] MEDS ORDERED: ALBUTEROL SO4 2.5/IPRATROPIUM 0.5 INH SOL 3 ML VIAL.NEB. NEB PRN (11:44)
[2019-07-25] MEDS ORDERED: ALBUTEROL SO4 0.083% IH SOL 2.5 MG/3 ML VIAL.NEB. NEB PRN (11:44)
--- NOTE | 2019-07-25 12:00 | PN ---
Teaching Attending Note Name of Resident: Enrrique Lin ATTENDING PHYSICIAN STATEMENT I saw and evaluated the patient. I reviewed the resident's note and discussed the case with the resident. I agree with the resident's findings and plan as documented. SUBJECTIVE: Admission notes and events noted. She nods and shakes her head to answer questions. she denies pain or discomfort. OBJECTIVE: Intubated, NAD, looks comfortable, awake, alert. CV: RRR, 3/7 SM at base and 2/6 SM at apex and L axilla. No JVD Lungs: clear lungs anteriorly Abd: soft, NT, Nd , NL BS Ext: No edema, no erythema. R flank and axillary area with dry, scaly, hyperpigmented skin ( slightly improved from before ) external genitalia with erythematous rash on labia majora ASSESSMENT AND PLAN: 88 y/o lady with h/o diastolic dysfunction , HTN, depression, chronic R subdural hematoma , h/o ETOH abuse, R carotid artery stenosis, PNA, UTI, NSVT, and recent admission for Acute resp failure due to PNA, Acute D CHF,NSTEMI and developed R iatrogenic pneumothorax, who was discharged home and returned 2 days later due to SOB and tachypnia. SHe was found to have acute hypoxic , hypercapnic resp failure and was intubated. 1- Acute hypoxic, hypercapnic resp failure. Now intubated Not clear what happened , but there is suspicion for acute diastolic heart failure. Of course an aspiration event ( with aspiration pneumonitis ) can't be r/o. kyphosis and possible scoliosis are contributing. has pleural effusions. I doubt pneumonia. - cont vent management per pulm - agree with stopping IVF - will ask card opinion on starting IV diuresis 2- Hypotension : hold Bb and diovan, and monitor for now. BP on monitor noted, high pulse pressure 3- elevated lactic acid. minimal. due to hypotension 4- Elevated AST. could be due to liver congestion . monitor 5- R flank contact dermatitis . cont hydrocortisone 6- fungal infection on genital area: nystatin and zinc oxide 7- H/o recent NSTEMI: cont asa. hold BB ICU level of care. will speak to family about details in past 2 days after dc . Critical Care Total Critical Care Time (in minutes): 40 Critical Care Statement: The care of this patient involved high complexity decision making to prevent further life threatening deterioration of the patient 's condition and/or to evaluate & treat vital organ system(s) failure or risk of failure.
--- NOTE | 2019-07-25 12:09 | CON.CARD ---
Consult Consult Specialty:: Cardiology Referred by:: Hospitalist Medicine Reason for Consultation:: Recurrent respiratory failure - History of Present Illness Chief Complaint: Dyspnea History of Present Illness: Pt is an 88 y/o F with a significant past medical history of HTN, Depression, diastolic dysfunction with h/o failure after administration of hypertonic saline , gait dysfunction with h/o mechanical falls recent admission 07/07-07/09 for recurrent fall, pneumonia, and CHF. She refused subacute rehab and was discharged home with home PT. She returned on 07/11 and was admitted for acute hypoxic and hypercapneic respiratory failure and septic shock secondary to pneumonia. She was treated with cefepime and vancomycin, and she required intubation and pressors. She developed a right pneumothorax during central line placement, and so she needed a chest tube. At discharge, she again refused subacute rehab and was discharged home on 07/23 with home care services. Her aide reported that she was unable to sleep after returning home. She was dyspneic and tachypneic, was not able to provide a history when she arrived in the ED, initially intubated now extubated on HFO2, CXR showed recurrent failure with pleural effusions. - History Source History Provided By: Medical Record Limitations to Obtaining History: Clinical Condition - Past Medical History Cardio/Vascular: Yes: HTN Psych: Yes: Depression - Alcohol/Substance Use Hx Alcohol Use: No History of Substance Use: reports: None - Smoking History Smoking history: Unknown if ever smoked Have you smoked in the past 12 months: No Aproximately how many cigarettes per day: 0 Home Medications - Allergies Allergies/Adverse Reactions: Allergies Allergy/AdvReac Type Severity Reaction Status Date / Time No Known Allergies Allergy Verified 07/25/19 00:17 - Home Medications Home Medications: Ambulatory Orders Sertraline HCl 50 mg PO DAILY 07/07/19 Calcium 500Mg/Vit-D 200 Units [Os-Silvio 500+D -] 1 tab PO BID 30 Days #60 tab Albuterol Sulfate Inhaler - [Ventolin HFA Inhaler -] 1 puff IH Q4H PRN #1 inhaler 07/23/19 Aspirin 81 mg PO DAILY #30 tab.chew 07/23/19 Furosemide 20 mg PO DAILY 30 Days #30 tablet 07/23/19 Hydrocortisone 1% Ointment [Hytone 1% Ointment -] 1 applic TP DAILY #1 tube LORazepam [Ativan] 0.5 mg PO BID PRN tablet MDD 1.5 07/23/19 Metoprolol Tartrate [Lopressor -] 50 mg PO BID 30 Days #60 tablet 07/23/19 Petrolatum - White [Vaseline -] 1 applic TP DAILY applic 07/23/19 Valsartan [Diovan] 40 mg PO DAILY 30 Days #30 tablet 07/23/19 Zinc Oxide 1 applic TP BID #1 tube 07/23/19 Zinc Oxide 1 applic TP DAILY #1 oint..gm. 07/23/19 Review of Systems - Review of Systems Cardiovascular: reports: Shortness of Breath Vital Signs: Vital Signs Temperature 98.0 F 07/25/19 10:00 Pulse Rate 77 07/25/19 10:00 Respiratory Rate 22 H 07/25/19 10:00 Blood Pressure 144/36 L 07/25/19 10:00 O2 Sat by Pulse Oximetry (%) 100 07/25/19 05:52 Constitutional: Yes: No Distress, Calm Neck: Yes: Supple Respiratory: Yes: Regular, Diminished, On Nasal O2 (On HFO2) Gastrointestinal: Yes: Soft, Hypoactive Bowel Sounds Cardiovascular: Yes: Regular Rate and Rhythm JVD: No Carotid Bruit: No Heart Sounds: Yes: S1, S2 Murmur: Yes: Systolic Murmur, Grade 1 Edema: No - Other Data Labs, Other Data: CBC, BMP 07/25/19 00:30 07/25/19 00:30 INR, PTT INR 1.16 (0.83-1.09) H 07/25/19 01:00 Troponin, BNP 07/25/19 00:30 Troponin I 0.03 B-Natriuretic Peptide 4686.0 H Troponin, BNP 07/25/19 00:30 Troponin I 0.03 B-Natriuretic Peptide 4686.0 H NSR @ 66 nonspec T changes Echo: Report Reviewed Ejection Fraction %: LVEF > or = 40 % Imaging - Results Chest X-ray: Report Reviewed (Recurrent CHD and pleural effusions improving from yesterday) Problem List - Problems (1) Acute respiratory failure with hypoxia and hypercarbia Code(s): J96.01 - ACUTE RESPIRATORY FAILURE WITH HYPOXIA; J96.02 - ACUTE RESPIRATORY FAILURE WITH HYPERCAPNIA (2) Acute diastolic heart failure Code(s): I50.31 - ACUTE DIASTOLIC (CONGESTIVE) HEART FAILURE (3) Iatrogenic pneumothorax Code(s): J95.811 - POSTPROCEDURAL PNEUMOTHORAX (4) Coronary artery disease Code(s): I25.10 - ATHSCL HEART DISEASE OF [place] CORONARY ARTERY W/O ANG PCTRS Qualifiers: Coronary Disease-Associated Artery/Lesion type: [place] artery [place] vs. transplanted heart: [place] heart Associated angina: without angina Qualified Code(s): I25.10 - Atherosclerotic heart disease of [place] coronary artery without angina pectoris Assessment/Plan 07/12/2019 echo: Normal biventrucular size and fxn, mod MR, AR 1. Acute Hypoxic and Hypercapneic Respiratory Failure 2. Acute on chronic diastolic heart failure 3. R/o aspiration pneumonia 4. Coronary artery disease with h/o demand ischemic injury angina pectoris 5. Hypertensive cardiovascular disease, hypotension related to the above-noted sepsis syndrome 6. History of non-sustained ventricular tachycardia 7. Right common carotid stenosis, moderate in severity 8. H/o iatrogenic pneumothorax post right chest tube insertion/complication of subclavian line insertion 9. Chronic Subdural Hematoma 10. 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 Resume IV diuresis with monitor diuretic response, renal fxn and electrolytes 2. Resumed empiric antibiotic course per C&S 3. Resume ASA 81 qd, metoprolol 25 bid, Diovan 40 qd as hemodynamics permit 4. Wean HFO2 to maintain saO2, BD as needed 5. Renovascular US r/o renal artery stenosis 6. DVT/GI prophylaxis 7. Plan of care d/w family 8. Thank you for consultative opportunity
--- NOTE | 2019-07-25 12:34 | PN ---
Physical Exam: SUBJECTIVE: Patient seen and examined in ICU. She is intubated but responsive via head nods and facial expressions. Anticipating extubation shortly. She denies pain. OBJECTIVE: Vital Signs Period Temp Pulse Resp BP Sys/Da Silva Pulse Ox Last 24 Hr 97 F-99.0 F 64-89 20-30 92-166/23-55 88-100 GENERAL: Alert and intubated. VENT setting: rate 20, TV 350, Fio2 70%, PEEP 5 HEAD: NC EYES: NELSON, EOMI, conjunctiva clear. ENT: Ears normal, nares patent, oropharynx clear without exudates. Moist mucous membranes, some dried blood on LEFT corner of mouth NECK: No lymphadenopathy, some JVD LUNGS: CTA on LEFT, decrease air entry on RIGHT. No adventitous sounds. No accessory muscle use. HEART: RRR s1 s2. 2/6 systolic murmur radiating to back. ABDOMEN: Soft, BS present in all 4 quadrants, non-distended, no JVD, MUSCULOSKELETAL: Kyphosis. Left hand contracted (chronic). No CVA tenderness. UPPER EXTREMITIES: 2+ pulses, warm, well-perfused. No cyanosis. No clubbing. No peripheral edema. LOWER EXTREMITIES: 2+ pulses, warm, well-perfused. No calf tenderness. No peripheral edema. NEUROLOGICAL: No focal deficits. Cranial nerves II-XII intact. Normal speech. PSYCHIATRIC: Cooperative. Good eye contact. Appropriate mood and affect. SKIN: RUE ecchymosis extending down flank and spared in certain areas . Echymosis on flexor surface of RUE. Warm, dry, normal turgor, normal capillary refill. Laboratory Results - last 24 hr 07/25/19 07/25/19 07/25/19 00:30 00:30 00:30 WBC 15.5 H RBC 4.56 Hgb 13.5 Hct 41.8 MCV 91.8 MCH 29.6 MCHC 32.2 RDW 13.9 Plt Count 410 MPV 10.0 Absolute Neuts (auto) 13.8 H Neutrophils % 88.6 H Lymphocytes % 6.6 L D Monocytes % 3.8 Eosinophils % 0.1 Basophils % 0.9 Nucleated RBC % 0 PT with INR INR PTT (Actin FS) Anticoagulation Therapy Puncture Site ABG pH ABG pCO2 at Pt Temp ABG pO2 at Pt Temp ABG HCO3 ABG O2 Sat (Measured) ABG O2 Content ABG Base Excess Ros[place] Test VBG pH POC VBG pCO2 POC VBG pO2 VBG HCO3 VBG O2 Sat (Clara) VBG Base Excess Carboxyhemoglobin Methemoglobin O2 Delivery Device Oxygen Flow Rate Vent Mode Vent Rate Mechanical Rate PEEP Pressure Support Vent Sodium 141 Potassium 3.7 Chloride 100 Carbon Dioxide 35 H Anion Gap 7 L BUN 19.3 H Creatinine 0.4 L Est GFR (CKD-EPI)AfAm 109.31 Est GFR (CKD-EPI)NonAf 94.31 Random Glucose 173 H Lactic Acid Calcium 9.3 Total Bilirubin 0.8 AST 26 ALT 62 H Alkaline Phosphatase 115 Troponin I 0.03 B-Natriuretic Peptide 4686.0 H Total Protein 6.9 Albumin 3.6 Urine Color Urine Appearance Urine pH Ur Specific [place] Urine Protein Urine Glucose (UA) Urine Ketones Urine Blood Urine Nitrite Urine Bilirubin Urine Urobilinogen Ur Leukocyte Esterase Urine WBC (Auto) Urine RBC (Auto) Urine Casts (Auto) U Epithel Cells (Auto) Urine Bacteria (Auto) 07/25/19 07/25/19 07/25/19 00:30 01:00 01:00 WBC RBC Hgb Hct MCV MCH MCHC RDW Plt Count MPV Absolute Neuts (auto) Neutrophils % Lymphocytes % Monocytes % Eosinophils % Basophils % Nucleated RBC % PT with INR 13.70 H INR 1.16 H PTT (Actin FS) 30.7 Anticoagulation Therapy Puncture Site ABG pH ABG pCO2 at Pt Temp ABG pO2 at Pt Temp ABG HCO3 ABG O2 Sat (Measured) ABG O2 Content ABG Base Excess Roshan Test VBG pH 7.25 L POC VBG pCO2 84.2 H* POC VBG pO2 53.4 H VBG HCO3 35.7 H VBG O2 Sat (Clara) 78.4 VBG Base Excess 5.6 H Carboxyhemoglobin Methemoglobin O2 Delivery Device Oxygen Flow Rate Vent Mode Vent Rate Mechanical Rate PEEP Pressure Support Vent Sodium Potassium Chloride Carbon Dioxide Anion Gap BUN Creatinine Est GFR (CKD-EPI)AfAm Est GFR (CKD-EPI)NonAf Random Glucose Lactic Acid 2.2 H* Calcium Total Bilirubin AST ALT Alkaline Phosphatase Troponin I B-Natriuretic Peptide Total Protein Albumin Urine Color Urine Appearance Urine pH Ur Specific [place] Urine Protein Urine Glucose (UA) Urine Ketones Urine Blood Urine Nitrite Urine Bilirubin Urine Urobilinogen Ur Leukocyte Esterase Urine WBC (Auto) Urine RBC (Auto) Urine Casts (Auto) U Epithel Cells (Auto) Urine Bacteria (Auto) 07/25/19 07/25/19 07/25/19 03:25 06:00 08:25 WBC RBC Hgb Hct MCV MCH MCHC RDW Plt Count MPV Absolute Neuts (auto) Neutrophils % Lymphocytes % Monocytes % Eosinophils % Basophils % Nucleated RBC % PT with INR INR PTT (Actin FS) Anticoagulation Therapy No Result Required. Puncture Site Left brachial ABG pH 7.44 ABG pCO2 at Pt Temp 51.7 H ABG pO2 at Pt Temp 314 H ABG HCO3 34.1 H ABG O2 Sat (Measured) 99.7 H ABG O2 Content 17.9 ABG Base Excess 8.8 H Roshan Test Positive VBG pH POC VBG pCO2 POC VBG pO2 VBG HCO3 VBG O2 Sat (Clara) VBG Base Excess Carboxyhemoglobin 0.9 Methemoglobin < 1.0 O2 Delivery Device Mech vent Oxygen Flow Rate 100% Vent Mode A/c Vent Rate 20 Mechanical Rate No Result Required. PEEP 5.0 Pressure Support Vent 350 Sodium Potassium Chloride Carbon Dioxide Anion Gap BUN Creatinine Est GFR (CKD-EPI)AfAm Est GFR (CKD-EPI)NonAf Random Glucose Lactic Acid 2.2 H* Calcium Total Bilirubin AST ALT Alkaline Phosphatase Troponin I B-Natriuretic Peptide Total Protein Albumin Urine Color Yellow Urine Appearance Cloudy Urine pH 6.0 Ur Specific [place] 1.041 H Urine Protein 300 Urine Glucose (UA) Negative Urine Ketones Negative Urine Blood Small Urine Nitrite Negative Urine Bilirubin Negative Urine Urobilinogen 1.0 Ur Leukocyte Esterase Negative Urine WBC (Auto) 2.6 Urine RBC (Auto) 5.5 Urine Casts (Auto) 527.13 U Epithel Cells (Auto) 13 Urine Bacteria (Auto) 5.9 Active Medications Generic Name Dose Route Start Last Admin Trade Name Freq PRN Reason Stop Dose Admin Albuterol Sulfate 1 amp 07/25/19 11:44 Ventolin 0.083% Nebulizer Soln - NEB Q4H PRN SHORT OF BREATH/WHEEZING Albuterol/Ipratropium 1 amp 07/25/19 11:44 Duoneb - NEB Q4H PRN SHORTNESS OF BREATH Aspirin 81 mg 07/26/19 10:00 Ecotrin - PO DAILY LISA Chlorhexidine Gluconate 1 applic 07/25/19 22:00 Hibiclens For Decolonization - TP HS LISA Furosemide 40 mg 07/25/19 12:31 Lasix Injection - IVPUSH BID@0600,1400 LISA Heparin Sodium (Porcine) 5,000 unit 07/25/19 14:00 Heparin - SQ TID LISA Hydrocortisone 1 applic 07/25/19 22:00 Hytone 1% Cream - TP BID LISA Fentanyl 500 mcg/ Dextrose 100 mls @ 5 mls/hr 07/25/19 03:30 07/25/19 06:45 IVPB 25 mcg/hr TITR LISA 5 mls/hr Administration 25 MCG/HR Potassium Chloride 10 meq/ 1,005 mls @ 42 mls/hr 07/25/19 08:36 07/25/19 08: 59 Sodium Chloride IVPB 42 mls/hr Q24H LISA Administration Piperacillin Sod/Tazobactam 50 mls @ 100 mls/hr 07/25/19 11:15 07/25/19 11:26 Sod 3.375 gm/ Dextrose IVPB Not Given Q8H-IV LISA Protocol Multi-Ingredient Ointment 1 applic 07/26/19 10:00 Zinc Oxide TP DAILY LISA Mupirocin 1 applic 07/25/19 10:00 07/25/19 10:13 Bactroban Ointment (For Decolonization) - NS 07/30/19 09:59 1 applic BID LISA Administration Nystatin 1 applic 07/25/19 22:00 Mycostatin Cream - TP BID LISA ASSESSMENT/PLAN: 88 y/o female PMH HTN, HFpEF, depression, chronic RIGHT subdural hematoma, ETOH abuse, RIGHT carotid artery stenosis, and recent admission for acute hypoxic hypercapnic respiratory failure. Pt brought to hospital after QUANTITATIVE ASSOCIATE found pt to be tachypnic and demonstrating increased work of breathing. She was placed on non-rebreather and oxygen saturation remained low. She was intubated and brought to the ICU. # Acute hypoxic, hypercapnic respiratory failure: HF vs aspiration PNA - Cont. VENT/ICU care - Lasix, monitor i/o - Diastolic left ventricular dysfunction with clinical class 0-I [place] Heart [employer] classification left ventricular failure/elevated B-type natriuretic peptide- most likely related to sepsis syndrome. Moderate pulmonary HTN. - Maintain MAP > 65 - Echo from last admission: mitral valve regurg, aortic regurg. Echo done : EF 55-60%, mild MR, pulm HTN, & AR - IV diuresis with monitor diuretic response, renal fxn and electrolytes - ASA 81 qd, metoprolol 25 bid, Diovan 40 qd as hemodynamics permit - Renovascular US r/o renal artery stenosis to help elucidate acute decompensation # RIGHT sided Contact dermatitis, stage 2 sacral pressure ulcer - cortisone 1% BID to a - zinc oxide for decubital ulcer - vaseline for lips # HTN - ASA 81 qd, metoprolol 25 bid, Diovan 40 qd as hemodynamics permit - Start JOHANNA inhibitor or angiotensin receptor tino therapy, hemodynamics permitting # Leukocytosis - WBC 15.5 - PNA vs left shift # F/E/N - NO FLUIDS, currently being diuresed - Cont. to monitor - Thin liquids when extubated; recently assesed by speech/swallow # DVT prophylaxis - Heparin SQ # Disposition - Full code Enrrique Lin MD Visit type - Emergency Visit Emergency Visit: No - New Patient This patient is new to me today: No - Critical Care Critical Care patient: No ATTENDING PHYSICIAN STATEMENT I saw and evaluated the patient. I reviewed the resident's note and discussed the case with the resident. I agree with the resident's findings and plan as documented. SUBJECTIVE: OBJECTIVE: ASSESSMENT AND PLAN:
[2019-07-25] MEDS: FUROSEMIDE 40 MG/4 ML INJECTABLE VIAL IVPUSH SCH ×2 (13:18→13:30)
[2019-07-25] MEDS: HEPARIN NA (PORCINE) 5,000 UNITS/ML 1ML VIAL SQ SCH ×2 (13:19→21:17)
--- NOTE | 2019-07-25 14:03 | CONSULT ---
Admitting History and Physical - Admission History of Present Illness: Per EMR- 88 y/o F with a significant past medical history of HTN, Depression, diastolic dysfunction with h/o failure after administration of hypertonic saline, gait dysfunction with h/o mechanical falls recent admission 07/07-07/09 for recurrent fall, pneumonia, and CHF. She refused subacute rehab and was discharged home with home PT. She returned on 07/11 and was admitted for acute hypoxic and hypercapneic respiratory failure and septic shock secondary to pneumonia. She was treated with cefepime and vancomycin, and she required intubation and pressors. She developed a right pneumothorax during central line placement, and so she needed a chest tube. At discharge, she again refused subacute rehab and was discharged home on 07/23 with home care services. Her aide reported that she was unable to sleep after returning home. She was dyspneic and tachypneic, was not able to provide a history when she arrived in the ED, initially intubated now extubated on HFO2, CXR showed recurrent failure with pleural effusions. Per PMD-Acute hypoxic, hypercapnic resp failure. Now intubated Not clear what happened , but there is suspicion for acute diastolic heart failure. Of course an aspiration event ( with aspiration pneumonitis ) can't be r/o. kyphosis and possible scoliosis are contributing. has pleural effusions. doubt pneumonia. Seen during recent admission- 07/21- CXR-Progressive Right infiltrate Pt was on BIPAP. RT placed her on NC, with o2 sat at 94. Breathing seemed comfortable. Voice is euphonic. 3 oz water test (-) Overtly, pt seems to tolerate PO trials. If aspiration is suspected, consider MBS to r/o silent aspiration. Extubated, verbal, good voice. Overtly swallow is brisk. Pt denies dysphagia. (- ) 3 oz water test. History Source: Medical Record Limitations to Obtaining History: Clinical Condition - Past Medical History Cardiovascular: Yes: HTN Psych: Yes: Depression - Smoking History Smoking history: Unknown if ever smoked Have you smoked in the past 12 months: No Aproximately how many cigarettes per day: 0 - Alcohol/Substance Use Hx Alcohol Use: No History of Substance Use: reports: None History - Admission Reason For Visit: RESPIRATORY DISTRESS/PNEUMONIA - Diagnostics X-ray: Pending, Report Reviewed CT Scan: Report Reviewed - General Mental Status: Awake and Alert, Able to Follow Commands Attention: Intact Ability to Follow Directions: Good Head/Neck Control: WFL - Hearing Hearing: Impaired Hearing Aide: No Speech Evaluation - Communication Primary Language: MONEGASQUE Communication: Yes: Simple Responses - Speech Production Able to Make Needs Known: Yes: WNL Intelligibility: Yes: WNL - Speech Characteristics Voice Loudness: Mildly Soft/Quiet Voice Pitch: Yes: Normal Voice Phonatory-based Quality: Yes: Normal Speech Pattern: Normal Nasal Resonance: Normal Articulation: Yes: Precise - Language/Auditory Comprehension Follows: Yes: 1 Stage Simple Commands Observation: Comprehends Conversational Speech: Yes - Language/Verbal Expression Functional Communication Status: Yes: WNL - Swallow Evaluation/Bedside Assessment Current Nutritional Intake: NPO Oral Secretions: Yes: WFL Dentition: Yes: Adequate Facial Symmetry at Rest: Symmetrical Facial Symmetry on Retraction: Symmetrical Against Resistance Opening: Normal Against Resistance Closing: Normal Pucker Lips: Normal Smile: Normal Lingual Movement: Normal, Symmetric Lingual Speed of Movement: Normal Lingual Movement Strgth Against Opposition: Normal Lingual Movement Characteristics: Normal Rate of Intake: WFL Bolus Size: WFL Labial Seal: WFL Oral Prep Time: WFL A-P Transit: WFL Pocketing: None Timing of Swallow: WFL Coughing/Throat Clear: No Change in Voice: No Recommendations - Speech Evaluation, Impression/Plan Impression: Swallowing overtly intact. If (+) cXR for PNA, or aspiration suspected, suggest MBS to r/o silent aspiration. Overtly, swallowing is functional. - Dysphagia Impressions/Plan Dysphagia Impressions: Minimal Impairment *Silent aspiration: cannot be R/O at bedside Recommendations: Modified Barium Swallow (if aspiration suspected) - Recommendations Diet Consistency: Dysphagia Pureed Medication Administration: Crushed with applesauce Liquids: Thin Liquids Supplement: Ensure, Magic Cup, Ensure Pudding
[2019-07-25 14:06] LABS: BASO % 1.1 % (0-2.0); EOS % 0.6 % (0-4.5); HEMOGLOBIN 12.3 GM/dL (10.7-15.3); MCH 29.7 pg (25.7-33.7); MCHC 32.4 g/dl (32.0-36.0); MEAN CELL VOLUME 91.6 fl (80-96); MEAN PLT VOLUME 9.5 fl (7.5-11.1); MONO % 7.4 % (3.8-10.2); NEUT % 76.9 % (42.8-82.8); PLATELET COUNT 283 K/MM3 (134-434); RBC 4.14 M/mm3 (3.60-5.2); WHITE BLOOD COUNT 14.8 K/mm3 (4.0-10.0)
[2019-07-25] MEDS ORDERED: LIDOCAINE HCL 1%, 10 MG/ML (20ML VIAL) ONE (14:10)
[2019-07-25 14:55] LABS: BILIRUBIN,TOTAL 1.4 mg/dL (0.2-1); BLOOD UREA NITROGEN 20.8 mg/dL (7-18); CALCIUM 8.8 mg/dL (8.5-10.1); CREATININE 0.4 mg/dL (0.55-1.3); MAGNESIUM 1.8 mg/dL (1.8-2.4); PHOSPHOROUS 4.4 mg/dL (2.5-4.9); POTASSIUM 3.2 mmol/L (3.5-5.1); TOT PROT 5.7 g/dl (6.4-8.2)
--- NOTE | 2019-07-25 15:00 | PROC ---
Central Line Insertion Indication: CVP Monitoring, Vasopressor Risks and Benefits Explained: Yes Consent on Chart: Yes Central Line: Triple Lumen Catheter Anesthesia: 1% Lidocaine Sterile Technique: Yes Ultrasound Guided Assistance: Yes Position: Right Internal Jugular Post Insertion: Yes: Bilateral Breath Sounds, Bilateral Chest Expansion, Chest X-Ray Ordered Sterile Dressing Applied: Yes
--- NOTE | 2019-07-25 16:28 | CONS ---
INFECTIOUS DISEASE CONSULTATION DATE OF CONSULTATION: DATE OF DICTATION: 07/25/2019 HISTORY: The patient is an 88-year-old female who was evaluated for sepsis. History was obtained from the chart as she cannot give a history as she is presently intubated in the intensive care unit. The patient was recently discharged from [facility] after a hospital stay from July 11 through July 23. Her course at that time was complicated by respiratory failure, pneumonia, and pneumothorax. She was discharged home on July 23, 2019. She now returns with increasing shortness of breath and lethargy. In the emergency room, she was noted to be dyspneic and hypoxemic. She required intubation. Chest x-ray showed increased markings bilaterally right greater than left, and CBC revealed elevated white blood cell count. She was empirically treated with vancomycin and Zosyn. At the present time, she is extubated. She is on high-flow oxygen. She is in no acute distress. She offers no focal complaint. PAST MEDICAL HISTORY: Positive for recent respiratory failure complicated by pneumonia, pulmonary hypertension, coronary artery disease, congestive heart failure, hypertension, depression, right subdural hematoma. ALLERGIES: No known allergies. MEDICATIONS: Include Tylenol, albuterol, aspirin, Lasix, vancomycin, Zosyn. SOCIAL HISTORY: She resides in the community. She is a nonsmoker, nondrinker. PAST SURGICAL HISTORY: Status post appendectomy and right hip fracture. SYSTEMS REVIEW: Neurologic: No loss of consciousness, seizure activity, focal weakness. Cardiac: Negative chest pain or palpitations. Respiratory: As per HPI. Gastrointestinal: Negative vomiting or diarrhea. Genitourinary: Negative for urinary tract infection. LABORATORY DATA: White count 15.5, 88 neutrophils, 6 lymphocytes, 3 monocytes, hematocrit 41.8, platelet count 410, creatinine 0.4, lactic acid 2.2. Urinalysis; 2 white cells. Cultures are pending. PHYSICAL EXAMINATION: General: On exam, she is awake on high-flow oxygen. Vital Signs: Temperature 98.0, blood pressure 144/36, pulse 77 regular, respirations 22 per minute. HEENT: Sclerae anicteric. Heart: Sounds S1, S2. Lungs: Diminished breath sounds bilaterally. Abdomen: Soft. Nontender. Extremities: Negative for edema. IMPRESSION: 1. Status post respiratory failure. 2. Rule out healthcare-acquired pneumonia. 3. Leukocytosis. 4. Lactic acidosis. PLAN: Await sepsis workup. Continue empiric antibiotic coverage hospital-acquired respiratory treatment pathogens with Zosyn. Supportive measures. Further recommendations pending cultures. We will follow. Thank you for the kind referral. MERVIN WOODSON M.D. KAROLYN/[id number]
[2019-07-25] MEDS ORDERED: PIPERACILLIN/TAZOBACTAM 3.375 GM VIAL IVPB ONE (16:32)
[2019-07-25] MEDS ORDERED: DEXTROSE 5%-WATER - 50 ML IVPB ONE (16:32)
[2019-07-25] MEDS: ALBUTEROL SO4 2.5/IPRATROPIUM 0.5 INH SOL 3 ML VIAL.NEB. NEB SCH ×2 (17:07→21:00)
[2019-07-25] MEDS: CHLORHEXIDINE GLUCONATE 4% CLEANSER FOR DECOLONIZATION TP SCH (21:16)
[2019-07-25] MEDS: NYSTATIN 100,000 UNIT/GM TOPICAL CREAM 15 GM TUBE TP SCH (21:18)
[2019-07-25] MEDS: HYDROCORTISONE 1% TOPICAL CREAM 30 GM TUBE TP SCH (21:18)
[2019-07-26] MEDS: ALBUTEROL SO4 2.5/IPRATROPIUM 0.5 INH SOL 3 ML VIAL.NEB. NEB SCH ×6 (00:34→20:45)
[2019-07-26] MEDS ORDERED: VANCOMYCIN 1 GM in D5W (PRE-DOCKED) 1,000 MG/250 ML IVPB SCH (01:00)
[2019-07-26] MEDS ORDERED: DEXTROSE 5%-WATER - 50 ML IVPB ONE ×4 (02:03→21:21)
[2019-07-26] MEDS ORDERED: PIPERACILLIN/TAZOBACTAM 3.375 GM VIAL IVPB ONE ×4 (02:03→21:21)
[2019-07-26] MEDS: PIPERACILLIN/TAZOB 3.375 GM 3.375 GM in DEXTROSE 5%-WATER - 50 ML IVPB SCH ×3 (02:21→17:40)
[2019-07-26] MEDS: FENTANYL INJECTION 500 MCG in DEXTROSE 5%-WATER - 90 ML IVPB SCH (03:29)
[2019-07-26] MEDS: NOREPINEPHRINE BITARTRATE 8,000 MCG in DEXTROSE 5%-WATER - 492 ML IV SCH (03:35)
[2019-07-26] MEDS ORDERED: NOREPINEPHRINE BITARTRATE 4 MG/4 ML ML IV ONE (03:43)
[2019-07-26 06:22] LABS: BASO % 1.2 % (0-2.0); EOS % 0.8 % (0-4.5); HEMATOCRIT 33.4 % (32.4-45.2); LYMPH % 18.8 % (8-40); MCHC 32.9 g/dl (32.0-36.0); MEAN PLT VOLUME 9.3 fl (7.5-11.1); MONO % 8.3 % (3.8-10.2); NEUT % 70.9 % (42.8-82.8); PLATELET COUNT 277 K/MM3 (134-434); RBC 3.66 M/mm3 (3.60-5.2); RDW 14.2 % (11.6-15.6); WHITE BLOOD COUNT 8.9 K/mm3 (4.0-10.0)
[2019-07-26] MEDS: FUROSEMIDE 40 MG/4 ML INJECTABLE VIAL IVPUSH SCH (06:30)
[2019-07-26] MEDS: HEPARIN NA (PORCINE) 5,000 UNITS/ML 1ML VIAL SQ SCH ×3 (06:30→21:22)
[2019-07-26 07:08] LABS: ALBUMIN 2.8 g/dl (3.4-5.0); BILIRUBIN,TOTAL 0.7 mg/dL (0.2-1); BLOOD UREA NITROGEN 18.3 mg/dL (7-18); CALCIUM 8.5 mg/dL (8.5-10.1); CREATININE 0.4 mg/dL (0.55-1.3); MAGNESIUM 2.1 mg/dL (1.8-2.4); PHOSPHOROUS 3.8 mg/dL (2.5-4.9); TOT PROT 5.2 g/dl (6.4-8.2)
[2019-07-26 07:13] LABS: POTASSIUM 2.8 mmol/L (3.5-5.1)
[2019-07-26] MEDS ORDERED: KCL 10 MEQ IVPB 10 MEQ/100 ML INFUS.BAG IVPB SCH (07:30)
[2019-07-26] MEDS ORDERED: POTASSIUM CHLORIDE TABS 10 MEQ TABLET.ER (FP) PO ONE (08:45)
[2019-07-26] MEDS ORDERED: POTASSIUM CHLORIDE ORAL LIQUID 20 MEQ/15 ML PO ONE (09:15)
[2019-07-26] MEDS: POTASSIUM CHLORIDE 20 MEQ PREMIX IVPB 100 ML IVPB SCH ×3 (09:36→13:15)
[2019-07-26] MEDS: ASPIRIN COATED 81 MG TABLET.EC PO SCH (09:38)
[2019-07-26] MEDS: MUPIROCIN 2% TOPICAL OINTMENT FOR DECOLONIZATION NS SCH ×2 (09:51→21:23)
[2019-07-26] MEDS: HYDROCORTISONE 1% TOPICAL CREAM 30 GM TUBE TP SCH ×2 (09:52→21:23)
[2019-07-26] MEDS: NYSTATIN 100,000 UNIT/GM TOPICAL CREAM 15 GM TUBE TP SCH ×2 (09:52→21:23)
[2019-07-26] MEDS: ZINC OXIDE 20% TOPICAL OINTMENT 30 GM TUBE TP SCH (09:57)
--- NOTE | 2019-07-26 10:13 | PN ---
Teaching Attending Note Name of Resident: Alexandra Ochoa ATTENDING PHYSICIAN STATEMENT I saw and evaluated the patient. I reviewed the resident's note and discussed the case with the resident. I agree with the resident's findings and plan as documented. SUBJECTIVE: Patient seen and examined in the ICU. Intubated, more awake and alert today. On HFOT, 40L, 40% FiO2. Norepinephrine @ 2 mcq for hemodynamic support. CXR: worsening bilateral infiltrates Intake & Output 07/23/19 07/24/19 07/25/19 07/26/19 23:59 23:59 23:59 23:59 Intake Total 250 122 Output Total 1110 250 Balance -860 -128 Weight 97 lb 1.6 oz 97 lb 1.6 oz Last Vital Signs Temp Pulse Resp BP Pulse Ox 97.5 F L 79 21 H 133/35 L 91 L 07/26/19 10:00 07/26/19 10:00 07/26/19 10:00 07/26/19 10:00 07/26/19 08:48 Active Medications Albuterol Sulfate (Ventolin 0.083% Nebulizer Soln -) 1 amp NEB Q4H PRN PRN Reason: SHORT OF BREATH/WHEEZING Albuterol/Ipratropium (Duoneb -) 1 amp NEB RQ4H [facility] Last Admin: 07/26/19 08:11 Dose: 1 amp Aspirin (Ecotrin -) 81 mg PO DAILY [facility] Last Admin: 07/26/19 09:38 Dose: 81 mg Chlorhexidine Gluconate (Hibiclens For Decolonization -) 1 applic TP HS [facility] Last Admin: 07/25/19 21:16 Dose: 1 applic Heparin Sodium (Porcine) (Heparin -) 5,000 unit SQ TID [facility] Last Admin: 07/26/19 06:30 Dose: 5,000 unit Hydrocortisone (Hytone 1% Cream -) 1 applic TP BID [facility] Last Admin: 07/26/19 09:52 Dose: 1 applic Fentanyl 500 mcg/ Dextrose 100 mls @ 5 mls/hr IVPB TITR [facility] Last Admin: 07/26/19 03:29 Dose: Not Given Piperacillin Sod/Tazobactam (Sod 3.375 gm/ Dextrose) 50 mls @ 100 mls/hr IVPB Q8H-IV [facility]; Protocol Last Admin: 07/26/19 09:35 Dose: 100 mls/hr Norepinephrine Bitartrate 8, (000 mcg/ Dextrose) 500 mls @ 18.75 mls/hr IV TITR [facility]ISA; Protocol Last Titration: 07/26/19 07:00 Dose: 2 mcg/min, 7.5 mls/hr Multi-Ingredient Ointment (Zinc Oxide) 1 applic TP DAILY [facility] Last Admin: 07/26/19 09:57 Dose: 1 applic Mupirocin (Bactroban Ointment (For Decolonization) -) 1 applic NS BID [facility] Stop: 07/30/19 09:59 Last Admin: 07/26/19 09:51 Dose: 1 applic Nystatin (Mycostatin Cream -) 1 applic TP BID [facility] Last Admin: 07/26/19 09:52 Dose: 1 applic Potassium Chloride (Potassium Chloride 20 Meq Premix Ivpb -) 20 meq IVPB Q60M [facility] Stop: 07/26/19 10:46 Last Admin: 07/26/19 09:36 Dose: 20 meq Constitutional: Yes: Extubated on HFOT, Awake and alert, Thin Eyes: Yes: Conjunctiva Clear, PERRL HENT: Yes: Atraumatic, Normocephalic Neck: Yes: Supple, Trachea Midline Cardiovascular: Yes: Regular Rate and Rhythm, Murmur, S1, S2 Respiratory: Yes: HFOT, Bilateral Rales Gastrointestinal: Yes: Soft, (+) Bowel Sounds Renal/: Yes: [place] Present Musculoskeletal: Yes: WNL Extremities: Yes: WNL Edema: No Peripheral Pulses WNL: Yes Integumentary: Yes: WNL, Other (dermatitis) Neurological: Yes: Non-focal Labs: Laboratory Results - last 24 hr 07/25/19 07/25/19 07/25/19 01:00 06:00 08:25 WBC RBC Hgb Hct MCV MCH MCHC RDW Plt Count MPV Absolute Neuts (auto) Neutrophils % Lymphocytes % Monocytes % Eosinophils % Basophils % Nucleated RBC % PT with INR 13.70 H INR 1.16 H PTT (Actin FS) 30.7 Sodium Potassium Chloride Carbon Dioxide Anion Gap BUN Creatinine Est GFR (CKD-EPI)AfAm Est GFR (CKD-EPI)NonAf Random Glucose Lactic Acid 2.2 H* Calcium Phosphorus Magnesium Total Bilirubin AST ALT Alkaline Phosphatase Troponin I Total Protein Albumin Urine Color Yellow Urine Appearance Cloudy Urine pH 6.0 Ur Specific [place] 1.041 H Urine Protein 300 Urine Glucose (UA) Negative Urine Ketones Negative Urine Blood Small Urine Nitrite Negative Urine Bilirubin Negative Urine Urobilinogen 1.0 Ur Leukocyte Esterase Negative Urine WBC (Auto) 2.6 Urine RBC (Auto) 5.5 Urine Casts (Auto) 527.13 U Epithel Cells (Auto) 13 Urine Bacteria (Auto) 5.9 07/25/19 07/25/19 07/26/19 13:40 13:40 06:00 WBC 14.8 H 8.9 RBC 4.14 3.66 Hgb 12.3 11.0 Hct 38.0 33.4 MCV 91.6 91.0 MCH 29.7 30.0 MCHC 32.4 32.9 RDW 14.0 14.2 Plt Count 283 D 277 MPV 9.5 9.3 Absolute Neuts (auto) 11.4 H 6.3 Neutrophils % 76.9 70.9 Lymphocytes % 14.0 D 18.8 D Monocytes % 7.4 D 8.3 Eosinophils % 0.6 D 0.8 Basophils % 1.1 1.2 Nucleated RBC % 0 0 PT with INR INR PTT (Actin FS) Sodium 142 Potassium 3.2 L Chloride 102 Carbon Dioxide 34 H Anion Gap 6 L BUN 20.8 H Creatinine 0.4 L Est GFR (CKD-EPI)AfAm 109.31 Est GFR (CKD-EPI)NonAf 94.31 Random Glucose 85 Lactic Acid Calcium 8.8 Phosphorus 4.4 Magnesium 1.8 Total Bilirubin 1.4 H AST 20 ALT 45 Alkaline Phosphatase 88 Troponin I 0.04 Total Protein 5.7 L Albumin 3.0 L Urine Color Urine Appearance Urine pH Ur Specific [place] Urine Protein Urine Glucose (UA) Urine Ketones Urine Blood Urine Nitrite Urine Bilirubin Urine Urobilinogen Ur Leukocyte Esterase Urine WBC (Auto) Urine RBC (Auto) Urine Casts (Auto) U Epithel Cells (Auto) Urine Bacteria (Auto) 07/26/19 06:00 WBC RBC Hgb Hct MCV MCH MCHC RDW Plt Count MPV Absolute Neuts (auto) Neutrophils % Lymphocytes % Monocytes % Eosinophils % Basophils % Nucleated RBC % PT with INR INR PTT (Actin FS) Sodium 144 Potassium 2.8 L* Chloride 101 Carbon Dioxide 39 H Anion Gap 4 L BUN 18.3 H Creatinine 0.4 L Est GFR (CKD-EPI)AfAm 109.31 Est GFR (CKD-EPI)NonAf 94.31 Random Glucose 85 Lactic Acid Calcium 8.5 Phosphorus 3.8 Magnesium 2.1 Total Bilirubin 0.7 AST 17 ALT 38 Alkaline Phosphatase 78 Troponin I Total Protein 5.2 L Albumin 2.8 L Urine Color Urine Appearance Urine pH Ur Specific [place] Urine Protein Urine Glucose (UA) Urine Ketones Urine Blood Urine Nitrite Urine Bilirubin Urine Urobilinogen Ur Leukocyte Esterase Urine WBC (Auto) Urine RBC (Auto) Urine Casts (Auto) U Epithel Cells (Auto) Urine Bacteria (Auto) Problem List - Problems (1) Hypercarbia Code(s): R06.89 - OTHER ABNORMALITIES OF BREATHING (2) Acute respiratory failure with hypoxia and hypercarbia Code(s): J96.01 - ACUTE RESPIRATORY FAILURE WITH HYPOXIA; J96.02 - ACUTE RESPIRATORY FAILURE WITH HYPERCAPNIA (3) Acute diastolic heart failure Code(s): I50.31 - ACUTE DIASTOLIC (CONGESTIVE) HEART FAILURE (4) Respiratory failure Code(s): J96.90 - RESPIRATORY FAILURE, UNSP, UNSP W HYPOXIA OR HYPERCAPNIA Qualifiers: Chronicity: acute Respiratory failure complication: hypoxia and hypercapnia Qualified Code(s): J96.01 - Acute respiratory failure with hypoxia ; J96.02 - Acute respiratory failure with hypercapnia Assessment/Plan HFpEF HTN Depression 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 OBJECTIVE: ASSESSMENT AND PLAN:
--- NOTE | 2019-07-26 10:24 | PN ---
Physical Exam: SUBJECTIVE: Patient seen and examined in the morning. Patient is still having diastolic hypotension, was started on levophed on overnight. No events on cardiac monitoring. Patient is awake and alert, with no complaints. OBJECTIVE: Vital Signs Period Temp Pulse Resp BP Sys/Da Silva Pulse Ox Last 24 Hr 97.5 F-98.4 F 64-85 18-33 98-148/23-44 91-98 GENERAL: The patient is awake, alert, and fully oriented, in no acute distress. HEAD: Normal with no signs of trauma. EYES: PERRLA, EOMI ENT: High flow oxygen in place. 40/ NECK: Trachea midline, full range of motion, supple. LUNGS: Breath sounds equal, clear to auscultation bilaterally, no wheezes HEART: Regular rate and rhythm, S1, S2 without murmur, rub or gallop. ABDOMEN: Soft, nontender, nondistended, normoactive bowel sounds, no guarding EXTREMITIES: 2+ pulses, warm, well-perfused, no edema. NEUROLOGICAL: Cranial nerves II through XII grossly intact. PSYCH: Normal mood, normal affect. Laboratory Results - last 24 hr 07/25/19 07/25/19 07/25/19 01:00 06:00 08:25 WBC RBC Hgb Hct MCV MCH MCHC RDW Plt Count MPV Absolute Neuts (auto) Neutrophils % Lymphocytes % Monocytes % Eosinophils % Basophils % Nucleated RBC % PT with INR 13.70 H INR 1.16 H PTT (Actin FS) 30.7 Sodium Potassium Chloride Carbon Dioxide Anion Gap BUN Creatinine Est GFR (CKD-EPI)AfAm Est GFR (CKD-EPI)NonAf Random Glucose Lactic Acid 2.2 H* Calcium Phosphorus Magnesium Total Bilirubin AST ALT Alkaline Phosphatase Troponin I Total Protein Albumin Urine Color Yellow Urine Appearance Cloudy Urine pH 6.0 Ur Specific [place] 1.041 H Urine Protein 300 Urine Glucose (UA) Negative Urine Ketones Negative Urine Blood Small Urine Nitrite Negative Urine Bilirubin Negative Urine Urobilinogen 1.0 Ur Leukocyte Esterase Negative Urine WBC (Auto) 2.6 Urine RBC (Auto) 5.5 Urine Casts (Auto) 527.13 U Epithel Cells (Auto) 13 Urine Bacteria (Auto) 5.9 07/25/19 07/25/19 07/26/19 13:40 13:40 06:00 WBC 14.8 H 8.9 RBC 4.14 3.66 Hgb 12.3 11.0 Hct 38.0 33.4 MCV 91.6 91.0 MCH 29.7 30.0 MCHC 32.4 32.9 RDW 14.0 14.2 Plt Count 283 D 277 MPV 9.5 9.3 Absolute Neuts (auto) 11.4 H 6.3 Neutrophils % 76.9 70.9 Lymphocytes % 14.0 D 18.8 D Monocytes % 7.4 D 8.3 Eosinophils % 0.6 D 0.8 Basophils % 1.1 1.2 Nucleated RBC % 0 0 PT with INR INR PTT (Actin FS) Sodium 142 Potassium 3.2 L Chloride 102 Carbon Dioxide 34 H Anion Gap 6 L BUN 20.8 H Creatinine 0.4 L Est GFR (CKD-EPI)AfAm 109.31 Est GFR (CKD-EPI)NonAf 94.31 Random Glucose 85 Lactic Acid Calcium 8.8 Phosphorus 4.4 Magnesium 1.8 Total Bilirubin 1.4 H AST 20 ALT 45 Alkaline Phosphatase 88 Troponin I 0.04 Total Protein 5.7 L Albumin 3.0 L Urine Color Urine Appearance Urine pH Ur Specific [place] Urine Protein Urine Glucose (UA) Urine Ketones Urine Blood Urine Nitrite Urine Bilirubin Urine Urobilinogen Ur Leukocyte Esterase Urine WBC (Auto) Urine RBC (Auto) Urine Casts (Auto) U Epithel Cells (Auto) Urine Bacteria (Auto) 07/26/19 06:00 WBC RBC Hgb Hct MCV MCH MCHC RDW Plt Count MPV Absolute Neuts (auto) Neutrophils % Lymphocytes % Monocytes % Eosinophils % Basophils % Nucleated RBC % PT with INR INR PTT (Actin FS) Sodium 144 Potassium 2.8 L* Chloride 101 Carbon Dioxide 39 H Anion Gap 4 L BUN 18.3 H Creatinine 0.4 L Est GFR (CKD-EPI)AfAm 109.31 Est GFR (CKD-EPI)NonAf 94.31 Random Glucose 85 Lactic Acid Calcium 8.5 Phosphorus 3.8 Magnesium 2.1 Total Bilirubin 0.7 AST 17 ALT 38 Alkaline Phosphatase 78 Troponin I Total Protein 5.2 L Albumin 2.8 L Urine Color Urine Appearance Urine pH Ur Specific [place] Urine Protein Urine Glucose (UA) Urine Ketones Urine Blood Urine Nitrite Urine Bilirubin Urine Urobilinogen Ur Leukocyte Esterase Urine WBC (Auto) Urine RBC (Auto) Urine Casts (Auto) U Epithel Cells (Auto) Urine Bacteria (Auto) Active Medications Generic Name Dose Route Start Last Admin Trade Name Freq PRN Reason Stop Dose Admin Albuterol Sulfate 1 amp 07/25/19 11:44 Ventolin 0.083% Nebulizer Soln - NEB Q4H PRN SHORT OF BREATH/WHEEZING Albuterol/Ipratropium 1 amp 07/25/19 12:38 07/26/19 08:11 Duoneb - NEB 1 amp RQ4H [facility] Administration Aspirin 81 mg 07/26/19 10:00 07/26/19 09:38 Ecotrin - PO 81 mg DAILY [facility] Administration Chlorhexidine Gluconate 1 applic 07/25/19 22:00 07/25/19 21:16 Hibiclens For Decolonization - TP 1 applic HS [facility] Administration Fludrocortisone Acetate 0.05 mg 07/27/19 10:00 Florinef - PO DAILY [facility] Heparin Sodium (Porcine) 5,000 unit 07/25/19 14:00 07/26/19 06:30 Heparin - SQ 5,000 unit TID [facility] Administration Hydrocortisone 1 applic 07/25/19 22:00 07/26/19 09:52 Hytone 1% Cream - TP 1 applic BID [facility] Administration Hydrocortisone Sodium Succinate 50 mg 07/26/19 10:15 Solu-Cortef - IVPB Q6H [facility]ISA Fentanyl 500 mcg/ Dextrose 100 mls @ 5 mls/hr 07/25/19 03:30 07/26/19 03:29 IVPB Not Given TITR LISA 25 MCG/HR Piperacillin Sod/Tazobactam 50 mls @ 100 mls/hr 07/25/19 11:15 07/26/19 09:35 Sod 3.375 gm/ Dextrose IVPB 100 mls/hr Q8H-IV [facility] Administration Protocol Norepinephrine Bitartrate 8, 500 mls @ 18.75 mls/hr 07/26/19 03:30 07/26/19 07:00 000 mcg/ Dextrose IV 2 mcg/min TITR LISA 7.5 mls/hr Titration Protocol 5 MCG/MIN Multi-Ingredient Ointment 1 applic 07/26/19 10:00 07/26/19 09:57 Zinc Oxide TP 1 applic DAILY [facility] Administration Mupirocin 1 applic 07/25/19 10:00 07/26/19 09:51 Bactroban Ointment (For Decolonization) - NS 01/04/20 09:59 1 applic BID [facility] Administration Nystatin 1 applic 07/25/19 22:00 07/26/19 09:52 Mycostatin Cream - TP 1 applic BID [facility] Administration Potassium Chloride 20 meq 07/26/19 08:45 07/26/19 09:36 Potassium Chloride 20 Meq Premix Ivpb - IVPB 07/26/19 10:46 20 meq Q60M [facility] Administration ASSESSMENT/PLAN: 88F with PMH of HFpEF, HTN, depressin, right CA stenosis, chronic R. subdural hematoma, recent intubation for hypoxic/hypercarbic respiratory failure secondary to PNA, recent d/c from hospital 07/23, who presented with shortness of breath and required intubation. Was extubated on 07/25 and put on high flow oxygen. Neuro -Patient is maintaining airway on high flow oxygen. -Will continue to monitor mental status Cardiovascular -Patient has Hx of HFpEF and HTN -Patient was hypotensive on admission, with decreased MAPs -Troponin of 0.03 -Strict I&O -BNP of 4686, was [address] on previous admission. -Patient MAP of 59 on Levophed of 2. Will taper. -Holding anti-hypertensive meds -Lasix held. Will reassess tomorrow. -Continue monitoring. Pulm -Was intubated in the ED. Extubated on 07/25. -Chest X-Ray shows b/l pleural effusions and congestion. No improvement from yesterday. -Vanc/zoysn was given due to infiltrate seen on initial x-ray. -Zoysn as per ID -Will continue on high flow oxygen -Duonebs PRN -Albuterol nebulizer PRN ID -Vancomycin/Zoysn given once. -Continue Zoysn -Afebrile -Possible aspiration event may have precipitated respiratory failure -F/U Cultures -ID consulted, appreciate recs GI -No issues currently. Will continue to monitor Renal -Creatinine of 0.4 -Will continue to monitor -Renal U/S to evaluate for renal hypertension DVT: Heparin SQ F: Oral Hydration E: Monitor CMP N: Puree diet Dispo: ICU monitoring. Need goals of care discussion with family. Visit type - Emergency Visit Emergency Visit: Yes ED Registration Date: 07/25/19 Care time: The patient presented to the Emergency Department on the above date and was hospitalized for further evaluation of their emergent condition. - New Patient This patient is new to me today: No - Critical Care Critical Care patient: Yes Total Critical Care Time (in minutes): 45 Critical Care Statement: The care of this patient involved high complexity decision making to prevent further life threatening deterioration of the patient 's condition and/or to evaluate & treat vital organ system(s) failure or risk of failure. ATTENDING PHYSICIAN STATEMENT I saw and evaluated the patient. I reviewed the resident's note and discussed the case with the resident. I agree with the resident's findings and plan as documented. SUBJECTIVE: OBJECTIVE: ASSESSMENT AND PLAN:
[2019-07-26] MEDS: HYDROCORTISONE SOD SUCCINATE 100 MG/2 ML VIAL IVPB SCH ×2 (11:37→15:30)
--- NOTE | 2019-07-26 11:44 | PN ---
Progress Note, [employer] - Note Progress Note: Selected Entries 07/25/19 07/25/19 07/25/19 00:11 05:52 10:00 Temperature 99.0 F 97 F L 98.0 F 07/25/19 07/25/19 07/26/19 14:00 22:00 02:00 Temperature 97.9 F 97.9 F 98.4 F 07/26/19 07/26/19 06:00 10:00 Temperature 98.4 F 97.5 F L Laboratory Tests 07/26/19 06:00 WBC 8.9 Tolerating small amounts of Po- 25% today. Overtly tolerating diet. REc as before
--- NOTE | 2019-07-26 12:48 | PN ---
Progress Note, Physician Chief Complaint: Events noted Dyspnea improved MAP noted currently remains on Pressor (Levophed) History of Present Illness: Patient was seen and examined. Awake and alert. Chart was reviewed Remains in ICU Denies chest pain. Breathing comfortable on high concentration O2 - Current Medication List Current Medications: Active Medications Albuterol Sulfate (Ventolin 0.083% Nebulizer Soln -) 1 amp NEB Q4H PRN PRN Reason: SHORT OF BREATH/WHEEZING Albuterol/Ipratropium (Duoneb -) 1 amp NEB RQ4H [facility] Last Admin: 07/26/19 11:50 Dose: 1 amp Aspirin (Ecotrin -) 81 mg PO DAILY [facility] Last Admin: 07/26/19 09:38 Dose: 81 mg Chlorhexidine Gluconate (Hibiclens For Decolonization -) 1 applic TP HS [facility] Last Admin: 07/25/19 21:16 Dose: 1 applic Fludrocortisone Acetate (Florinef -) 0.05 mg PO DAILY [facility] Heparin Sodium (Porcine) (Heparin -) 5,000 unit SQ TID [facility] Last Admin: 07/26/19 06:30 Dose: 5,000 unit Hydrocortisone (Hytone 1% Cream -) 1 applic TP BID [facility] Last Admin: 07/26/19 09:52 Dose: 1 applic Hydrocortisone Sodium Succinate (Solu-Cortef -) 50 mg IVPB Q6H-IV [facility] Last Admin: 07/26/19 11:37 Dose: 50 mg Fentanyl 500 mcg/ Dextrose 100 mls @ 5 mls/hr IVPB TITR [facility] Last Admin: 07/26/19 03:29 Dose: Not Given Piperacillin Sod/Tazobactam (Sod 3.375 gm/ Dextrose) 50 mls @ 100 mls/hr IVPB Q8H-IV [facility]; Protocol Last Admin: 07/26/19 09:35 Dose: 100 mls/hr Norepinephrine Bitartrate 8, (000 mcg/ Dextrose) 500 mls @ 18.75 mls/hr IV TITR [facility]; Protocol Last Titration: 07/26/19 12:00 Dose: 1 mcg/min, 3.75 mls/hr Multi-Ingredient Ointment (Zinc Oxide) 1 applic TP DAILY [facility] Last Admin: 07/26/19 09:57 Dose: 1 applic Mupirocin (Bactroban Ointment (For Decolonization) -) 1 applic NS BID [facility] Stop: 07/30/19 09:59 Last Admin: 07/26/19 09:51 Dose: 1 applic Nystatin (Mycostatin Cream -) 1 applic TP BID [facility] Last Admin: 07/26/19 09:52 Dose: 1 applic - Objective Vital Signs: Vital Signs Temperature 97.5 F L 07/26/19 10:00 Pulse Rate 65 07/26/19 12:00 Respiratory Rate 21 H 07/26/19 12:00 Blood Pressure 162/38 L 07/26/19 12:00 O2 Sat by Pulse Oximetry (%) 91 L 07/26/19 08:48 Neck: Yes: Supple Cardiovascular: Yes: Regular Rate and Rhythm, Murmur (SM), S1, S2 Respiratory: Yes: Diminished, On Nasal O2 Gastrointestinal: Yes: Normal Bowel Sounds, Soft. No: Tenderness Edema: No Labs: CBC, BMP 07/26/19 06:00 07/26/19 06:00 INR, PTT INR 1.16 (0.83-1.09) H 07/25/19 01:00 - ....Imaging Chest X-ray: Report Reviewed (Congestion) Problem List - Problems (1) Acute respiratory failure with hypoxia and hypercarbia Code(s): J96.01 - ACUTE RESPIRATORY FAILURE WITH HYPOXIA; J96.02 - ACUTE RESPIRATORY FAILURE WITH HYPERCAPNIA (2) Coronary artery disease Code(s): I25.10 - ATHSCL HEART DISEASE OF [place] CORONARY ARTERY W/O ANG PCTRS Qualifiers: Coronary Disease-Associated Artery/Lesion type: [place] artery [place] vs. transplanted heart: [place] heart Associated angina: without angina Qualified Code(s): I25.10 - Atherosclerotic heart disease of [place] coronary artery without angina pectoris (3) Acute diastolic heart failure Code(s): I50.31 - ACUTE DIASTOLIC (CONGESTIVE) HEART FAILURE (4) Anemia Code(s): D64.9 - ANEMIA, UNSPECIFIED (5) Diastolic dysfunction Code(s): I51.89 - OTHER ILL-DEFINED HEART DISEASES (6) HTN (hypertension) Code(s): I10 - ESSENTIAL (PRIMARY) HYPERTENSION Qualifiers: Hypertension type: essential hypertension Qualified Code(s): I10 - Essential (primary) hypertension (7) Demand ischemia Code(s): I24.8 - OTHER FORMS OF ACUTE ISCHEMIC HEART DISEASE (8) Respiratory failure Code(s): J96.90 - RESPIRATORY FAILURE, UNSP, UNSP W HYPOXIA OR HYPERCAPNIA Qualifiers: Chronicity: acute Respiratory failure complication: hypoxia and hypercapnia Qualified Code(s): J96.01 - Acute respiratory failure with hypoxia ; J96.02 - Acute respiratory failure with hypercapnia (9) Septic shock Code(s): A41.9 - SEPSIS, UNSPECIFIED ORGANISM; R65.21 - SEVERE SEPSIS WITH SEPTIC SHOCK Assessment/Plan 1. Acute Hypoxic and Hypercapneic Respiratory Failure 2. Acute on chronic diastolic heart failure 3. ? Aspiration pneumonia 4. Coronary artery disease with h/o demand ischemic injury angina pectoris 5. Hypertensive cardiovascular disease, hypotension related to the above-noted sepsis syndrome, wide pulse pressure 6. History of non-sustained ventricular tachycardia 7. Right common carotid stenosis, moderate in severity 8. History of iatrogenic pneumothorax post right chest tube insertion/ complication of subclavian line insertion 9. Chronic Subdural Hematoma 10. PSVT currently NSR PLAN: 1. IV diuresis with monitor renal function and electrolytes. Hold today 2. Empiric antibiotic 3. ASA 81 qd. Once clinically stable may resume Metoprolol and Diovan at a low dose. 4. Wean Pressor as tolerated at the discretion of ICU team 5. DVT/GI prophylaxis Further plans are to follow Robbi Markham MD
--- NOTE | 2019-07-26 14:03 | PN ---
Physical Exam: SUBJECTIVE: Patient seen and examined at bedside. She is on high flow oxygen now , tolerated extubation well. She offers no complaints today. OBJECTIVE: Vital Signs Period Temp Pulse Resp BP Sys/Da Silva Pulse Ox Last 24 Hr 97.5 F-98.4 F 64-80 18-27 106-162/24-44 91-98 GENERAL: Alert and intubated. On high flow 02. HEAD: NC EYES: NELSON, EOMI, conjunctiva clear. ENT: Ears normal, nares patent, oropharynx clear without exudates. Moist mucous membranes, some dried blood on LEFT corner of mouth NECK: No lymphadenopathy, some JVD LUNGS: CTA on LEFT, decrease air entry on RIGHT. No adventitous sounds. No accessory muscle use. HEART: RRR s1 s2. 2/6 systolic murmur radiating to back. ABDOMEN: Soft, BS present in all 4 quadrants, non-distended, no JVD, MUSCULOSKELETAL: Kyphosis. Left hand contracted (chronic). No CVA tenderness. UPPER EXTREMITIES: 2+ pulses, warm, well-perfused. No cyanosis. No clubbing. No peripheral edema. LOWER EXTREMITIES: 2+ pulses, warm, well-perfused. No calf tenderness. No peripheral edema. NEUROLOGICAL: No focal deficits. Cranial nerves II-XII intact. Normal speech. PSYCHIATRIC: Cooperative. Good eye contact. Appropriate mood and affect. SKIN: Resolving RUE ecchymosis extending down flank and spared in certain areas . Echymosis on flexor surface of RUE. Warm, dry, normal turgor, normal capillary refill. Ducubitus ulcer on sacrum. Laboratory Results - last 24 hr 07/25/19 07/25/19 07/26/19 13:40 13:40 06:00 WBC 14.8 H 8.9 RBC 4.14 3.66 Hgb 12.3 11.0 Hct 38.0 33.4 MCV 91.6 91.0 MCH 29.7 30.0 MCHC 32.4 32.9 RDW 14.0 14.2 Plt Count 283 D 277 MPV 9.5 9.3 Absolute Neuts (auto) 11.4 H 6.3 Neutrophils % 76.9 70.9 Lymphocytes % 14.0 D 18.8 D Monocytes % 7.4 D 8.3 Eosinophils % 0.6 D 0.8 Basophils % 1.1 1.2 Nucleated RBC % 0 0 Sodium 142 Potassium 3.2 L Chloride 102 Carbon Dioxide 34 H Anion Gap 6 L BUN 20.8 H Creatinine 0.4 L Est GFR (CKD-EPI)AfAm 109.31 Est GFR (CKD-EPI)NonAf 94.31 Random Glucose 85 Calcium 8.8 Phosphorus 4.4 Magnesium 1.8 Total Bilirubin 1.4 H AST 20 ALT 45 Alkaline Phosphatase 88 Troponin I 0.04 Total Protein 5.7 L Albumin 3.0 L 07/26/19 06:00 WBC RBC Hgb Hct MCV MCH MCHC RDW Plt Count MPV Absolute Neuts (auto) Neutrophils % Lymphocytes % Monocytes % Eosinophils % Basophils % Nucleated RBC % Sodium 144 Potassium 2.8 L* Chloride 101 Carbon Dioxide 39 H Anion Gap 4 L BUN 18.3 H Creatinine 0.4 L Est GFR (CKD-EPI)AfAm 109.31 Est GFR (CKD-EPI)NonAf 94.31 Random Glucose 85 Calcium 8.5 Phosphorus 3.8 Magnesium 2.1 Total Bilirubin 0.7 AST 17 ALT 38 Alkaline Phosphatase 78 Troponin I Total Protein 5.2 L Albumin 2.8 L Active Medications Generic Name Dose Route Start Last Admin Trade Name Freq PRN Reason Stop Dose Admin Albuterol Sulfate 1 amp 07/25/19 11:44 Ventolin 0.083% Nebulizer Soln - NEB Q4H PRN SHORT OF BREATH/WHEEZING Albuterol/Ipratropium 1 amp 07/25/19 12:38 07/26/19 11:50 Duoneb - NEB 1 amp RQ4H LISA Administration Aspirin 81 mg 07/26/19 10:00 07/26/19 09:38 Ecotrin - PO 81 mg DAILY LISA Administration Chlorhexidine Gluconate 1 applic 07/25/19 22:00 07/25/19 21:16 Hibiclens For Decolonization - TP 1 applic HS LISA Administration Fludrocortisone Acetate 0.05 mg 07/27/19 10:00 Florinef - PO DAILY LISA Heparin Sodium (Porcine) 5,000 unit 07/25/19 14:00 07/26/19 06:30 Heparin - SQ 5,000 unit TID LISA Administration Hydrocortisone 1 applic 07/25/19 22:00 07/26/19 09:52 Hytone 1% Cream - TP 1 applic BID LISA Administration Hydrocortisone Sodium Succinate 50 mg 07/26/19 10:15 07/26/19 11:37 Solu-Cortef - IVPB 50 mg Q6H-IV LISA Administration Fentanyl 500 mcg/ Dextrose 100 mls @ 5 mls/hr 07/25/19 03:30 07/26/19 03:29 IVPB Not Given TITR LISA 25 MCG/HR Piperacillin Sod/Tazobactam 50 mls @ 100 mls/hr 07/25/19 11:15 07/26/19 09:35 Sod 3.375 gm/ Dextrose IVPB 100 mls/hr Q8H-IV LISA Administration Protocol Norepinephrine Bitartrate 8, 500 mls @ 18.75 mls/hr 07/26/19 03:30 07/26/19 12:00 000 mcg/ Dextrose IV 1 mcg/min TITR LISA 3.75 mls/hr Titration Protocol 5 MCG/MIN Multi-Ingredient Ointment 1 applic 07/26/19 10:00 07/26/19 09:57 Zinc Oxide TP 1 applic DAILY LISA Administration Mupirocin 1 applic 07/25/19 10:00 07/26/19 09:51 Bactroban Ointment (For Decolonization) - NS 07/30/19 09:59 1 applic BID LISA Administration Nystatin 1 applic 07/25/19 22:00 07/26/19 09:52 Mycostatin Cream - TP 1 applic BID LISA Administration ASSESSMENT/PLAN: 88 y/o female PMH HTN, HFpEF, depression, chronic RIGHT subdural hematoma, ETOH abuse, RIGHT carotid artery stenosis, and recent admission for acute hypoxic hypercapnic respiratory failure. Pt brought to hospital after REGULATORY AND COMPLIANCE TECHNICIAN found pt to be tachypnic and demonstrating increased work of breathing. She was placed on non-rebreather and oxygen saturation remained low. She was intubated and brought to the ICU. She is now s/p extubation, saturating well. Must establish goals of care and how to objectively avoid re-hospitalization. # Acute hypoxic, hypercapnic respiratory failure: HF vs aspiration PNA - Cont. ICU care as BP has been low and pt vol depleted; difficult central line placement. - Currently on levophed 2 mcg - Troponin of 0.03 - Lasix, monitor i/o; lasix to be held by ICU team's monitoring - Cont. zosyn 3.375 gm IV q8h - Diastolic left ventricular dysfunction with clinical class 0-I [place] Heart Association classification left ventricular failure/elevated B-type natriuretic peptide- most likely related to sepsis syndrome. Moderate pulmonary HTN. - Maintain MAP > 65 - Echo from last admission: mitral valve regurg, aortic regurg. Echo done : EF 55-60%, mild MR, pulm HTN, & AR - IV diuresis with monitor diuretic response, renal fxn and electrolytes - ASA 81 qd, metoprolol 25 bid, Diovan 40 qd as hemodynamics permit - Renovascular US r/o renal artery stenosis to help elucidate acute decompensation # RIGHT sided Contact dermatitis, stage 2 sacral pressure ulcer - cortisone 1% BID to a - zinc oxide for decubital ulcer - vaseline for lips # HTN - ASA 81 qd, HOLD metoprolol 25 bid, Diovan 40 qd - HOLD JOHANNA inhibitor or angiotensin receptor tino therapy # Leukocytosis, resolved - WBC 8.9 - Left shift # F/E/N - NO FLUIDS, currently being diuresed - Cont. to monitor - Thin liquids # DVT prophylaxis - Heparin SQ # Disposition - Full code Enrrique Lin MD Visit type - Emergency Visit Emergency Visit: No - New Patient This patient is new to me today: No - Critical Care Critical Care patient: Yes Total Critical Care Time (in minutes): 40 Critical Care Statement: The care of this patient involved high complexity decision making to prevent further life threatening deterioration of the patient 's condition and/or to evaluate & treat vital organ system(s) failure or risk of failure. ATTENDING PHYSICIAN STATEMENT I saw and evaluated the patient. I reviewed the resident's note and discussed the case with the resident. I agree with the resident's findings and plan as documented. SUBJECTIVE: OBJECTIVE: ASSESSMENT AND PLAN:
--- NOTE | 2019-07-26 17:32 | PN ---
Progress Note, Physician History of Present Illness: AWAKE ON HIGH FLOW O2 BREATHING NON-LABORED AFEBRILE WBC IMPROVED WNL - Current Medication List Current Medications: Active Medications Albuterol Sulfate (Ventolin 0.083% Nebulizer Soln -) 1 amp NEB Q4H PRN PRN Reason: SHORT OF BREATH/WHEEZING Albuterol/Ipratropium (Duoneb -) 1 amp NEB RQ4H LISA Last Admin: 07/26/19 11:50 Dose: 1 amp Aspirin (Ecotrin -) 81 mg PO DAILY LISA Last Admin: 07/26/19 09:38 Dose: 81 mg Chlorhexidine Gluconate (Hibiclens For Decolonization -) 1 applic TP HS LISA Last Admin: 07/25/19 21:16 Dose: 1 applic Heparin Sodium (Porcine) (Heparin -) 5,000 unit SQ TID LISA Last Admin: 07/26/19 15:30 Dose: 5,000 unit Hydrocortisone (Hytone 1% Cream -) 1 applic TP BID [facility] Last Admin: 07/26/19 09:52 Dose: 1 applic Fentanyl 500 mcg/ Dextrose 100 mls @ 5 mls/hr IVPB TITR [facility] Last Admin: 07/26/19 03:29 Dose: Not Given Piperacillin Sod/Tazobactam (Sod 3.375 gm/ Dextrose) 50 mls @ 100 mls/hr IVPB Q8H-IV LISA; Protocol Last Admin: 07/26/19 09:35 Dose: 100 mls/hr Norepinephrine Bitartrate 8, (000 mcg/ Dextrose) 500 mls @ 18.75 mls/hr IV TITR LISA; Protocol Last Titration: 07/26/19 15:38 Dose: 2 mcg/min, 7.5 mls/hr Multi-Ingredient Ointment (Zinc Oxide) 1 applic TP DAILY [facility] Last Admin: 07/26/19 09:57 Dose: 1 applic Mupirocin (Bactroban Ointment (For Decolonization) -) 1 applic NS BID [facility] Stop: 07/30/19 09:59 Last Admin: 07/26/19 09:51 Dose: 1 applic Nystatin (Mycostatin Cream -) 1 applic TP BID [facility] Last Admin: 07/26/19 09:52 Dose: 1 applic - Objective Vital Signs: Vital Signs Temperature 98.6 F 07/26/19 14:00 Pulse Rate 74 07/26/19 16:00 Respiratory Rate 19 07/26/19 16:00 Blood Pressure 144/34 L 07/26/19 16:00 O2 Sat by Pulse Oximetry (%) 91 L 07/26/19 08:48 Constitutional: Yes: No Distress Eyes: Yes: Conjunctiva Clear Cardiovascular: Yes: Regular Rate and Rhythm, S1, S2 Respiratory: Yes: Diminished Gastrointestinal: Yes: Normal Bowel Sounds, Soft Labs: CBC, BMP 07/26/19 06:00 07/26/19 06:00 INR, PTT INR 1.16 (0.83-1.09) H 07/25/19 01:00 Assessment/Plan RESP FAILURE R/O PNEUMONIA LEUKOCYTOSIS RESOLVED LACTIC ACIDOSIS CONTINUE EMPIRIC ZOSYN
--- NOTE | 2019-07-26 18:26 | PN ---
Teaching Attending Note Name of Resident: Enrrique Lin ATTENDING PHYSICIAN STATEMENT I saw and evaluated the patient. I reviewed the resident's note and discussed the case with the resident. I agree with the resident's findings and plan as documented. SUBJECTIVE: seen around 9 am No fever or chills . denies SOB . has no CP . no abd pain, no diarrhea OBJECTIVE: NAD, awake, looks comfortable, awake, alert. CV: RRR, 3/6 SM at base and 2/6 SM at apex and L axilla. No JVD Lungs: clear lungs anteriorly Abd: soft, NT, Nd , NL BS Ext: No edema, no erythema. R flank and axillary area with dry, scaly, hyperpigmented skin external genitalia with erythematous rash on labia majora ASSESSMENT AND PLAN: 88 y/o lady with h/o diastolic dysfunction , HTN, depression, chronic R subdural hematoma , h/o ETOH abuse, R carotid artery stenosis, PNA, UTI, NSVT, and recent admission for Acute resp failure due to PNA, Acute D CHF,NSTEMI and developed R iatrogenic pneumothorax, who was discharged home and returned 2 days later due to SOB and tachypnia. SHe was found to have acute hypoxic , hypercapnic resp failure and was intubated. 1- Acute hypoxic, hypercapnic resp failure. s/p extubation - etiology is not clear but the most likely diagnosis is heart failure . less likely PNA. ? Aspiration events . - cxray reviewed. - cont zosyn per ID - as she dropped her BP yesterday after lasix, will hold lasix today and monitor off IVF - cont high flow O2 - add mucinex 2- Hypotension : hold BB and diovan, and monitor for now. 3- ELevated lactic acid. minimal. due to hypotension. r 4-hypokalemia: replete . repeat level pending 5- R flank contact dermatitis . cont hydrocortisone 6- fungal infection on genital area: nystatin and zinc oxide 7- H/o recent NSTEMI: cont asa. hold BB ICU level of care. d/w Dr. Leija
[2019-07-26] MEDS: CHLORHEXIDINE GLUCONATE 4% CLEANSER FOR DECOLONIZATION TP SCH (21:24)
[2019-07-27] MEDS: ALBUTEROL SO4 2.5/IPRATROPIUM 0.5 INH SOL 3 ML VIAL.NEB. NEB SCH ×6 (00:39→19:58)
[2019-07-27] MEDS ORDERED: PIPERACILLIN/TAZOBACTAM 3.375 GM VIAL IVPB ONE ×4 (02:08→21:07)
[2019-07-27] MEDS ORDERED: DEXTROSE 5%-WATER - 50 ML IVPB ONE ×4 (02:09→21:07)
[2019-07-27] MEDS: PIPERACILLIN/TAZOB 3.375 GM 3.375 GM in DEXTROSE 5%-WATER - 50 ML IVPB SCH ×3 (02:11→17:28)
[2019-07-27] MEDS ORDERED: NOREPINEPHRINE BITARTRATE 4 MG/4 ML ML IV ONE (03:44)
[2019-07-27] MEDS: NOREPINEPHRINE BITARTRATE 8,000 MCG in DEXTROSE 5%-WATER - 492 ML IV SCH (06:36)
[2019-07-27] MEDS: FENTANYL INJECTION 500 MCG in DEXTROSE 5%-WATER - 90 ML IVPB SCH (06:36)
[2019-07-27] MEDS: HEPARIN NA (PORCINE) 5,000 UNITS/ML 1ML VIAL SQ SCH ×3 (06:37→21:11)
[2019-07-27 06:58] LABS: BASO % 0.8 % (0-2.0); EOS % 0.8 % (0-4.5); HEMATOCRIT 37.4 % (32.4-45.2); LYMPH % 18.1 % (8-40); MCH 29.8 pg (25.7-33.7); MCHC 32.2 g/dl (32.0-36.0); MEAN CELL VOLUME 92.6 fl (80-96); MEAN PLT VOLUME 9.6 fl (7.5-11.1); MONO % 10.2 % (3.8-10.2); NEUT % 70.1 % (42.8-82.8); PLATELET COUNT 293 K/MM3 (134-434); RBC 4.04 M/mm3 (3.60-5.2); RDW 14.1 % (11.6-15.6); WHITE BLOOD COUNT 12.1 K/mm3 (4.0-10.0)
--- NOTE | 2019-07-27 07:03 | PN ---
Progress Note (short form) - Note Progress Note: Chief Complaint: Events noted, notes reviewed, reports persistent dyspnea but improved, denies any chest pain, remains on pressors although adequate systolic BP, low diastolic BP related to probable AI +/- sepsis syndrome, paroxysmal SVT noted with intermittent aberrant conduction History of Present Illness: Seen and examined in the ICU. Events noted, notes reviewed, reports persistent dyspnea but improved, denies any chest pain, remains on pressors although adequate systolic BP, low diastolic BP related to probable AI +/- sepsis syndrome, paroxysmal SVT noted with intermittent aberrant conduction - Current Medication List Current Medications Albuterol Sulfate (Ventolin 0.083% Nebulizer Soln -) 1 amp NEB Q4H PRN PRN Reason: SHORT OF BREATH/WHEEZING Albuterol/Ipratropium (Duoneb -) 1 amp NEB RQ4H [facility] Last Admin: 07/27/19 04:34 Dose: Not Given Aspirin (Ecotrin -) 81 mg PO DAILY [facility] Last Admin: 07/26/19 09:38 Dose: 81 mg Chlorhexidine Gluconate (Hibiclens For Decolonization -) 1 applic TP HS [facility] Last Admin: 07/26/19 21:24 Dose: 1 applic Heparin Sodium (Porcine) (Heparin -) 5,000 unit SQ TID [facility] Last Admin: 07/27/19 06:37 Dose: 5,000 unit Hydrocortisone (Hytone 1% Cream -) 1 applic TP BID [facility] Last Admin: 07/26/19 21:23 Dose: 1 applic Fentanyl 500 mcg/ Dextrose 100 mls @ 5 mls/hr IVPB TITR [facility] Last Admin: 07/27/19 06:36 Dose: Not Given Piperacillin Sod/Tazobactam (Sod 3.375 gm/ Dextrose) 50 mls @ 100 mls/hr IVPB Q8H-IV LISA; Protocol Last Admin: 07/27/19 02:11 Dose: 100 mls/hr Norepinephrine Bitartrate 8, (000 mcg/ Dextrose) 500 mls @ 18.75 mls/hr IV TITR [facility]; Protocol Last Admin: 07/27/19 06:36 Dose: Not Given Multi-Ingredient Ointment (Zinc Oxide) 1 applic TP DAILY [facility] Last Admin: 07/26/19 09:57 Dose: 1 applic Mupirocin (Bactroban Ointment (For Decolonization) -) 1 applic NS BID [facility] Stop: 07/30/19 09:59 Last Admin: 07/26/19 21:23 Dose: 1 applic Nystatin (Mycostatin Cream -) 1 applic TP BID [facility] Last Admin: 07/26/19 21:23 Dose: 1 applic Review of Systems Constitutional: no symptoms reported Respiratory: reports: Cough and Sputum Production Cardiovascular: as noted above Gastrointestinal: denies Nausea, Vomiting, Diarrhea, Constipation or Abdominal Pain Genitourinary: no symptoms reported Musculoskeletal: no symptoms reported Endocrine: no symptoms reported - Objective Vital Signs: Last Vital Signs Temp Pulse Resp BP Pulse Ox 98.2 F 65 15 161/30 L 91 L 07/27/19 02:00 07/27/19 04:00 07/27/19 04:00 07/27/19 04:00 07/26/19 08:48 Intake & Output 07/24/19 07/25/19 07/26/19 07/27/19 23:59 23:59 23:59 23:59 Intake Total 250 1020 155 Output Total 1110 1700 200 Balance -860 -680 -45 Weight 97 lb 1.6 oz 97 lb Neck: Supple Negative JVD No Bruit Respiratory: Scattered Rhonchi Bilaterally Cardiovascular: S1 S2 Regular Rate Rhythm Gastrointestinal: Soft Benign Normal Bowel Sounds Ext: Negative Edema Labs: CBC, BMP 07/27/19 06:15 07/27/19 06:15 Hepatic Panel Total Bilirubin 0.7 mg/dL (0.2-1) 07/26/19 06:00 AST 17 U/L (15-37) 07/26/19 06:00 ALT 38 U/L (13-61) 07/26/19 06:00 Alkaline Phosphatase 78 U/L (45-117) 07/26/19 06:00 Albumin 2.8 g/dl (3.4-5.0) L 07/26/19 06:00 INR, PTT INR 1.16 (0.83-1.09) H 07/25/19 01:00 ABG Results ABG pH 7.44 (7.35-7.45) 07/25/19 03:25 ABG pCO2 at Pt Temp 51.7 mmHg (35-45) H 07/25/19 03:25 ABG pO2 at Pt Temp 314 mmHg (80-100) H 07/25/19 03:25 ABG HCO3 34.1 mmol/L (22-27) H 07/25/19 03:25 ABG O2 Sat (Measured) 99.7 % (95-98) H 07/25/19 03:25 ABG O2 Content 17.9 % vol 07/25/19 03:25 ABG Base Excess 8.8 meq/l (-2-2) H 07/25/19 03:25 Assessment/Plan ASSESSMENT: 1. Clinical presentation is consistent with acute hypoxic respiratory failure most likely related to 2. Probable sepsis syndrome- aspiration pneumonia 3. Coronary artery disease with evidence of demand ischemic injury angina pectoris 4. Acute on chronic class I-II [place] Heart Association classification diastolic left ventricular failure, clinically resolving 5. Hypertensive cardiovascular disease, transient hypotension related to the above-noted sepsis syndrome- resolved wide pulse pressure related to AI +/- sepsis syndrome 6. SVT with intermittent aberrant conduction, history of non-sustained ventricular tachycardia 7. Aortic valve regurgitation 8. Tricuspid valve regurgitation with moderate degree of pulmonary hypertension 9. History of carotid stenosis, moderate in severity 10. History of iatrogenic pneumothorax post chest tube insertion/complication of subclavian line insertion- on recent hospitalization 11. Pre-renal azotemia PLAN: 1. Wean off pressor therapy/Norepinephrine- no clinical indications 2. Recommend initiation of beta-tino therapy, hemodynamics permitting, Lopressor therapy at 25 mg twice daily (once off of pressor therapy) 3. Recommend initiation of JOHANNA inhibitor or angiotensin receptor tino therapy , hemodynamics permitting (once off of pressor therapy) 4. Diuretics- Lasix IV prn as needed and with caution- hold today 5. Continue ASA 6. Antibiotics as per the primary team Case was reviewed in detail with the treating ICU housestaff Tamiko Bruce M.D.
--- NOTE | 2019-07-27 07:30 | PN ---
Physical Exam: SUBJECTIVE: Patient seen and examined at bedside. No acute events overnight. Pt offers no complaints this AM. Denies sob, chest pain, abd pain. OBJECTIVE: Vital Signs Period Temp Pulse Resp BP Sys/Da Silva Pulse Ox Last 24 Hr 97.5 F-98.7 F 65-82 14-27 115-166/30-82 91 GENERAL: The patient is awake, alert, and fully oriented, in no acute distress. HEAD: Normal with no signs of trauma. EYES: PERRLA, EOMI ENT: High flow oxygen in place. 40/40 NECK: Trachea midline, full range of motion, supple. LUNGS: Breath sounds equal, clear to auscultation bilaterally, no wheezes HEART: Regular rate and rhythm, S1, S2 without murmur, rub or gallop. ABDOMEN: Soft, nontender, nondistended, normoactive bowel sounds, no guarding EXTREMITIES: 2+ pulses, warm, well-perfused, no edema. NEUROLOGICAL: Cranial nerves II through XII grossly intact. PSYCH: Normal mood, normal affect. Laboratory Results - last 24 hr 07/26/19 07/27/19 17:30 06:15 WBC 12.1 H RBC 4.04 Hgb 12.0 Hct 37.4 MCV 92.6 MCH 29.8 MCHC 32.2 RDW 14.1 Plt Count 293 MPV 9.6 Absolute Neuts (auto) 8.5 H Neutrophils % 70.1 Lymphocytes % 18.1 Monocytes % 10.2 Eosinophils % 0.8 Basophils % 0.8 Nucleated RBC % 0 Potassium 4.2 Active Medications Albuterol Sulfate (Ventolin 0.083% Nebulizer Soln -) 1 amp NEB Q4H PRN PRN Reason: SHORT OF BREATH/WHEEZING Albuterol/Ipratropium (Duoneb -) 1 amp NEB RQ4H [facility] Last Admin: 07/27/19 08:14 Dose: Not Given Aspirin (Ecotrin -) 81 mg PO DAILY [facility] Last Admin: 07/27/19 09:51 Dose: 81 mg Chlorhexidine Gluconate (Hibiclens For Decolonization -) 1 applic TP HS [facility] Last Admin: 07/26/19 21:24 Dose: 1 applic Heparin Sodium (Porcine) (Heparin -) 5,000 unit SQ TID [facility] Last Admin: 07/27/19 06:37 Dose: 5,000 unit Hydrocortisone (Hytone 1% Cream -) 1 applic TP BID [facility] Last Admin: 07/27/19 09:51 Dose: 1 applic Fentanyl 500 mcg/ Dextrose 100 mls @ 5 mls/hr IVPB TITR [facility] Last Admin: 07/27/19 06:36 Dose: Not Given Piperacillin Sod/Tazobactam (Sod 3.375 gm/ Dextrose) 50 mls @ 100 mls/hr IVPB Q8H-IV [facility]ISA; Protocol Last Admin: 07/27/19 09:52 Dose: 100 mls/hr Metoprolol Tartrate (Lopressor -) 25 mg PO BID [facility] Last Admin: 07/27/19 09:52 Dose: 25 mg Multi-Ingredient Ointment (Zinc Oxide) 1 applic TP DAILY [facility] Last Admin: 07/27/19 09:52 Dose: 1 applic Mupirocin (Bactroban Ointment (For Decolonization) -) 1 applic NS BID [facility] Stop: 07/30/19 09:59 Last Admin: 07/27/19 09:50 Dose: 1 applic Nystatin (Mycostatin Cream -) 1 applic TP BID [facility] Last Admin: 07/27/19 09:52 Dose: 1 applic Valsartan (Diovan -) 40 mg PO DAILY [facility] Last Admin: 07/27/19 09:51 Dose: 40 mg ASSESSMENT/PLAN: 88F with PMH of HFpEF, HTN, depression, right CA stenosis, chronic R. subdural hematoma, recent intubation for hypoxic/hypercarbic respiratory failure secondary to PNA, recent d/c from hospital 07/23, who presented with shortness of breath and required intubation likely 2/2 acute decompensated diastolic heart failure. Was extubated on 07/25 and put on high flow oxygen. Neuro/Psych Depression Hx of Chronic R SDH -Remain stable, AAOx2 -Currently on high flow 30% FiO2 -Will continue to monitor mental status Cardiovascular Acute Decompensated HFpEF HTN Hx of R CA stenosis Aortic Insufficiency w/ Widened Pulse Pressure -Pt has tenuous hemodynamic stability given severe decompensated heart failure. Although MAPs remain in the 50s, pt has severe aortic insufficiency as a contributing factor and as result, systolic BP and clinical status is more relevant in pt's case. Today, she looks well and has no respiratory or cardiac complaints. -Titrated off Levo; currently HD stable while MAPs remain steady in 50s -Per cardio, will start on Lopressor 25 BID, Valsartan 40 QD. Hold diuretics today. -Cont ASA 81 Pulm Acute Hypoxic/Hypercapneic Respiratory Failure 2/2 ? Aspiration PNA vs. acute decomp HF -Given IV Vanc/Zosyn x1 upon admission; cont with IV Zosyn per ID -s/p extubation on 07/25 -CXR showing minimally decreased b/l pulm changes -Currently on high flow @ 30% FiO2, will wean off -Duonebs/Alb nebs PRN ID ? Aspiration Pna -Vancomycin/Zoysn given upon admission; continuing with Zosyn. Will discuss with ID if further IV abx needed given low suspicion for infection -Leg/S pneumo neg, UCx/SCx/BCx neg GI -No issues currently. Will continue to monitor Renal -Creatinine of 0.3 -Will continue to monitor -Renal U/S to evaluate for renal hypertension Prophylaxis DVT: Heparin SQ F: Oral Hydration E: Monitor CMP N: Puree diet Dispo: ICU monitoring. Pt states she wants to go home after discharge. Ongoing discussion GOC with family. Visit type - Emergency Visit Emergency Visit: Yes ED Registration Date: 07/25/19 Care time: The patient presented to the Emergency Department on the above date and was hospitalized for further evaluation of their emergent condition. - New Patient This patient is new to me today: Yes Date on this admission: 07/27/19 - Critical Care Critical Care patient: Yes Total Critical Care Time (in minutes): 35 Critical Care Statement: The care of this patient involved high complexity decision making to prevent further life threatening deterioration of the patient 's condition and/or to evaluate & treat vital organ system(s) failure or risk of failure. ATTENDING PHYSICIAN STATEMENT I saw and evaluated the patient. I reviewed the resident's note and discussed the case with the resident. I agree with the resident's findings and plan as documented. SUBJECTIVE: OBJECTIVE: ASSESSMENT AND PLAN:
[2019-07-27 08:08] LABS: BLOOD UREA NITROGEN 23.3 mg/dL (7-18); CALCIUM 9.3 mg/dL (8.5-10.1); CREATININE 0.3 mg/dL (0.55-1.3); MAGNESIUM 2.1 mg/dL (1.8-2.4); PHOSPHOROUS 2.6 mg/dL (2.5-4.9); POTASSIUM 3.8 mmol/L (3.5-5.1); TOT PROT 5.9 g/dl (6.4-8.2)
--- NOTE | 2019-07-27 09:43 | PN ---
Teaching Attending Note Name of Resident: Enrrique Lin ATTENDING PHYSICIAN STATEMENT I saw and evaluated the patient. I reviewed the resident's note and discussed the case with the resident. I agree with the resident's findings and plan as documented. SUBJECTIVE: Patient is feeling better with no acute distress. on High flow oxygen, in ICU. OBJECTIVE: Vital Signs Temperature 98 F 07/27/19 06:00 Pulse Rate 75 07/27/19 08:00 Respiratory Rate 14 07/27/19 08:00 Blood Pressure 126/27 L 07/27/19 08:00 O2 Sat by Pulse Oximetry (%) 91 L 07/26/19 08:48 GENERAL: The patient is awake, alert, and fully oriented, in NAD. HEAD: Normal with no signs of trauma. EYES: PERRL, EOMI, sclera anicteric, conjunctiva clear. ENT: Ears normal, on oxygen high flow, clear ,no exudates, moist mucous membranes. NECK: Trachea midline, full range of motion, supple. LUNGS: Breath sounds equal, decreased BS BL , on high flow oxygen. no accessory muscle use. HEART: Regular rate and rhythm, S1, S2 without murmur, rub or gallop. ABDOMEN: Soft, NT, ND, normoactive bowel sounds, no guarding, no rebound, no hepatosplenomegaly, no masses. EXTREMITIES: 2+ pulses, warm, well-perfused, no edema. NEUROLOGICAL: Cranial nerves II through XII grossly intact. Normal speech, gait not observed. PSYCH: Normal mood, normal affect. SKIN: Warm, dry, normal turgor, no rashes or lesions noted CBCD WBC 12.1 K/mm3 (4.0-10.0) H 07/27/19 06:15 RBC 4.04 M/mm3 (3.60-5.2) 07/27/19 06:15 Hgb 12.0 GM/dL (10.7-15.3) 07/27/19 06:15 Hct 37.4 % (32.4-45.2) 07/27/19 06:15 MCV 92.6 fl (80-96) 07/27/19 06:15 MCHC 32.2 g/dl (32.0-36.0) 07/27/19 06:15 RDW 14.1 % (11.6-15.6) 07/27/19 06:15 Plt Count 293 K/MM3 (134-434) 07/27/19 06:15 MPV 9.6 fl (7.5-11.1) 07/27/19 06:15 CMP Sodium 143 mmol/L (136-145) 07/27/19 06:15 Potassium 3.8 mmol/L (3.5-5.1) 07/27/19 06:15 Chloride 101 mmol/L (98-107) 07/27/19 06:15 Carbon Dioxide 36 mmol/L (21-32) H 07/27/19 06:15 Anion Gap 7 MMOL/L (8-16) L 07/27/19 06:15 BUN 23.3 mg/dL (7-18) H 07/27/19 06:15 Creatinine 0.3 mg/dL (0.55-1.3) L 07/27/19 06:15 Random Glucose 111 mg/dL (74-106) H 07/27/19 06:15 Calcium 9.3 mg/dL (8.5-10.1) 07/27/19 06:15 Total Bilirubin 1.0 mg/dL (0.2-1) 07/27/19 06:15 AST 15 U/L (15-37) 07/27/19 06:15 ALT 37 U/L (13-61) 07/27/19 06:15 Alkaline Phosphatase 83 U/L (45-117) 07/27/19 06:15 Total Protein 5.9 g/dl (6.4-8.2) L 07/27/19 06:15 Albumin 3.0 g/dl (3.4-5.0) L 07/27/19 06:15 CARDIAC ENZYMES Troponin I 0.04 ng/ml (0.00-0.05) 07/25/19 13:40 Current Medications Generic Name Dose Route Start Last Admin Trade Name Freq PRN Reason Stop Dose Admin Albuterol Sulfate 1 amp 07/25/19 11:44 Ventolin 0.083% Nebulizer Soln - NEB Q4H PRN SHORT OF BREATH/WHEEZING Albuterol/Ipratropium 1 amp 07/25/19 12:38 07/27/19 08:14 Duoneb - NEB Not Given RQ4H LISA Aspirin 81 mg 07/26/19 10:00 07/26/19 09:38 Ecotrin - PO 81 mg DAILY LISA Administration Chlorhexidine Gluconate 1 applic 07/25/19 22:00 07/26/19 21:24 Hibiclens For Decolonization - TP 1 applic HS LISA Administration Heparin Sodium (Porcine) 5,000 unit 07/25/19 14:00 07/27/19 06:37 Heparin - SQ 5,000 unit TID LISA Administration Hydrocortisone 1 applic 07/25/19 22:00 07/26/19 21:23 Hytone 1% Cream - TP 1 applic BID LISA Administration Fentanyl 500 mcg/ Dextrose 100 mls @ 5 mls/hr 07/25/19 03:30 07/27/19 06:36 IVPB Not Given TITR LISA 25 MCG/HR Piperacillin Sod/Tazobactam 50 mls @ 100 mls/hr 07/25/19 11:15 07/27/19 02:11 Sod 3.375 gm/ Dextrose IVPB 100 mls/hr Q8H-IV LISA Administration Protocol Metoprolol Tartrate 25 mg 07/27/19 10:00 Lopressor - PO BID LISA Multi-Ingredient Ointment 1 applic 07/26/19 10:00 07/26/19 09:57 Zinc Oxide TP 1 applic DAILY LISA Administration Mupirocin 1 applic 07/25/19 10:00 07/26/19 21:23 Bactroban Ointment (For Decolonization) - NS 07/30/19 09:59 1 applic BID LISA Administration Nystatin 1 applic 07/25/19 22:00 07/26/19 21:23 Mycostatin Cream - TP 1 applic BID LISA Administration Valsartan 40 mg 07/27/19 10:00 Diovan - PO DAILY [facility] Home Medications Medication Instructions Recorded Sertraline HCl 50 mg PO DAILY 07/07/19 Calcium 500Mg/Vit-D 200 Units 1 tab PO BID 30 Days #60 tab 07/08/19 [Os-Silvio 500+D -] Albuterol Sulfate Inhaler - 1 puff IH Q4H PRN #1 inhaler 07/23/19 [Ventolin HFA Inhaler -] Aspirin 81 mg PO DAILY #30 tab.chew 07/23/19 Furosemide 20 mg PO DAILY 30 Days #30 tablet 07/23/19 Hydrocortisone 1% Ointment [Hytone 1 applic TP DAILY #1 tube 07/23/19 1% Ointment -] LORazepam [Ativan] 0.5 mg PO BID PRN tablet MDD 1.5 07/23/19 Metoprolol Tartrate [Lopressor -] 50 mg PO BID 30 Days #60 tablet 07/23/19 Petrolatum - White [Vaseline -] 1 applic TP DAILY applic 07/23/19 Valsartan [Diovan] 40 mg PO DAILY 30 Days #30 tablet 07/23/19 Zinc Oxide 1 applic TP BID #1 tube 07/23/19 Zinc Oxide 1 applic TP DAILY #1 oint..gm. 07/23/19 Microbiology 07/25/19 04:13 Blood - Peripheral Venous Blood Culture - Preliminary NO GROWTH OBTAINED AFTER 48 HOURS, INCUBATION TO CONTINUE FOR 3 DAYS. 07/25/19 01:15 Blood - Peripheral Venous Blood Culture - Preliminary NO GROWTH OBTAINED AFTER 48 HOURS, INCUBATION TO CONTINUE FOR 3 DAYS. 07/25/19 06:00 Sputum - Endotrachea Suction/Ventilator Gram Stain - Final 07/25/19 06:00 Sputum - Endotrachea Suction/Ventilator Sputum Culture - Preliminary NORMAL RESPIRATORY [place] 07/25/19 06:00 Urine - Urine Clean Catch Urine Culture - Final NO GROWTH OBTAINED 07/25/19 18:40 Urine - Urine Mills Legionella Antigen - Final 07/25/19 18:40 Urine - Urine Mills Streptococcus pneumoniae Antigen (M - Final ASSESSMENT AND PLAN: Patient is an 88yof with PMhx of diastolic dysfunction , HTN, depression, chronic R subdural hematoma ,ETOH abuse, R carotid artery stenosis, PNA, UTI, NSVT, with a recent admission for Acute resp failure due to PNA, Acute D CHF, NSTEMI and developed R iatrogenic pneumothorax, who was discharged home and returned 2 days later due to SOB and tachypnia. SHe was found to have acute hypoxic , hypercapnic resp failure and was intubated. #Acute hypoxic, hypercapnic resp failure. s/p extubation now on high flow oxygen continue, cont zosyn per ID , hold lasix due to low bp , continue mucinex # s/p Hypotension : normotensive now, continue BP meds. and monitor #hypokalemia: normal now , repleted. # R flank contact dermatitis . cont hydrocortisone #fungal infection on genital area: nystatin and zinc oxide # H/o recent NSTEMI: cont asa. hold BB ICU level of care.
[2019-07-27] MEDS: MUPIROCIN 2% TOPICAL OINTMENT FOR DECOLONIZATION NS SCH ×2 (09:50→21:11)
[2019-07-27] MEDS: ASPIRIN COATED 81 MG TABLET.EC PO SCH (09:51)
[2019-07-27] MEDS: VALSARTAN 40 MG TABLET (FP) PO SCH (09:51)
[2019-07-27] MEDS: HYDROCORTISONE 1% TOPICAL CREAM 30 GM TUBE TP SCH ×2 (09:51→21:11)
[2019-07-27] MEDS: METOPROLOL TARTRATE 25 MG TABLET (FP) PO SCH ×2 (09:52→21:12)
[2019-07-27] MEDS: ZINC OXIDE 20% TOPICAL OINTMENT 30 GM TUBE TP SCH (09:52)
[2019-07-27] MEDS: NYSTATIN 100,000 UNIT/GM TOPICAL CREAM 15 GM TUBE TP SCH ×2 (09:52→21:12)
--- NOTE | 2019-07-27 09:53 | PN ---
Teaching Attending Note Name of Resident: Quiana Blackmon ATTENDING PHYSICIAN STATEMENT I saw and evaluated the patient. I reviewed the resident's note and discussed the case with the resident. I agree with the resident's findings and plan as documented. SUBJECTIVE: Patient seen and examined in the ICU. Extubated, awake and alert today. On HFOT, 40L, 40% FiO2. Norepinephrine @ 2 mcq for hemodynamic support. CXR: improving bilateral infiltrates Intake & Output 07/24/19 07/25/19 07/26/19 07/27/19 23:59 23:59 23:59 23:59 Intake Total 250 1020 155 Output Total 1110 1700 200 Balance -860 -680 -45 Weight 97 lb 1.6 oz 97 lb 97 lb 3 oz Last Vital Signs Temp Pulse Resp BP Pulse Ox 98 F 75 14 126/27 L 91 L 07/27/19 06:00 07/27/19 08:00 07/27/19 08:00 07/27/19 08:00 07/26/19 08:48 Active Medications Albuterol Sulfate (Ventolin 0.083% Nebulizer Soln -) 1 amp NEB Q4H PRN PRN Reason: SHORT OF BREATH/WHEEZING Albuterol/Ipratropium (Duoneb -) 1 amp NEB RQ4H [facility] Last Admin: 07/27/19 08:14 Dose: Not Given Aspirin (Ecotrin -) 81 mg PO DAILY [facility] Last Admin: 07/26/19 09:38 Dose: 81 mg Chlorhexidine Gluconate (Hibiclens For Decolonization -) 1 applic TP HS [facility] Last Admin: 07/26/19 21:24 Dose: 1 applic Heparin Sodium (Porcine) (Heparin -) 5,000 unit SQ TID [facility] Last Admin: 07/27/19 06:37 Dose: 5,000 unit Hydrocortisone (Hytone 1% Cream -) 1 applic TP BID [facility] Last Admin: 07/26/19 21:23 Dose: 1 applic Fentanyl 500 mcg/ Dextrose 100 mls @ 5 mls/hr IVPB TITR [facility] Last Admin: 07/27/19 06:36 Dose: Not Given Piperacillin Sod/Tazobactam (Sod 3.375 gm/ Dextrose) 50 mls @ 100 mls/hr IVPB Q8H-IV LISA; Protocol Last Admin: 07/27/19 02:11 Dose: 100 mls/hr Metoprolol Tartrate (Lopressor -) 25 mg PO BID [facility] Multi-Ingredient Ointment (Zinc Oxide) 1 applic TP DAILY [facility] Last Admin: 07/26/19 09:57 Dose: 1 applic Mupirocin (Bactroban Ointment (For Decolonization) -) 1 applic NS BID [facility] Stop: 07/30/19 09:59 Last Admin: 07/26/19 21:23 Dose: 1 applic Nystatin (Mycostatin Cream -) 1 applic TP BID [facility] Last Admin: 07/26/19 21:23 Dose: 1 applic Valsartan (Diovan -) 40 mg PO DAILY [facility] Constitutional: Yes: Awake and alert on HFOT Eyes: Yes: Conjunctiva Clear, PERRL HENT: Yes: Atraumatic, Normocephalic Neck: Yes: Supple, Trachea Midline Cardiovascular: Yes: Regular Rate and Rhythm, Murmur, S1, S2 Respiratory: Yes: HFOT, Bilateral Rales Gastrointestinal: Yes: Soft, (+) Bowel Sounds Renal/: Yes: Mills Present Musculoskeletal: Yes: WNL Extremities: Yes: WNL Edema: No Peripheral Pulses WNL: Yes Integumentary: Yes: WNL, Other (dermatitis) Neurological: Yes: Non-focal Labs: Laboratory Results - last 24 hr 07/26/19 07/27/19 07/27/19 17:30 06:15 06:15 WBC 12.1 H RBC 4.04 Hgb 12.0 Hct 37.4 MCV 92.6 MCH 29.8 MCHC 32.2 RDW 14.1 Plt Count 293 MPV 9.6 Absolute Neuts (auto) 8.5 H Neutrophils % 70.1 Lymphocytes % 18.1 Monocytes % 10.2 Eosinophils % 0.8 Basophils % 0.8 Nucleated RBC % 0 Sodium 143 Potassium 4.2 3.8 Chloride 101 Carbon Dioxide 36 H Anion Gap 7 L BUN 23.3 H Creatinine 0.3 L Est GFR (CKD-EPI)AfAm 120.16 Est GFR (CKD-EPI)NonAf 103.67 Random Glucose 111 H Calcium 9.3 Phosphorus 2.6 Magnesium 2.1 Total Bilirubin 1.0 AST 15 ALT 37 Alkaline Phosphatase 83 Total Protein 5.9 L Albumin 3.0 L Problem List - Problems (1) Hypercarbia Code(s): R06.89 - OTHER ABNORMALITIES OF BREATHING (2) Acute respiratory failure with hypoxia and hypercarbia Code(s): J96.01 - ACUTE RESPIRATORY FAILURE WITH HYPOXIA; J96.02 - ACUTE RESPIRATORY FAILURE WITH HYPERCAPNIA (3) Acute diastolic heart failure Code(s): I50.31 - ACUTE DIASTOLIC (CONGESTIVE) HEART FAILURE (4) Respiratory failure Code(s): J96.90 - RESPIRATORY FAILURE, UNSP, UNSP W HYPOXIA OR HYPERCAPNIA Qualifiers: Chronicity: acute Respiratory failure complication: hypoxia and hypercapnia Qualified Code(s): J96.01 - Acute respiratory failure with hypoxia ; J96.02 - Acute respiratory failure with hypercapnia Assessment/Plan HFpEF HTN Depression Right CCA stenosis Chronic Right subdural hematoma History of Right Iatrogenic PTX on last admission Wean pressors: SBP goal 90 HFOT support Continue to hold IVF and Lasix today ABX per ID Daily weights Strict I & O Follow final cultures BD TX VTE prophylaxis Requires ICU monitoring Dr Pemberton Critical care time spent in reviewing chart, evaluating patient and formulating plan - 36 minutes.
[2019-07-27] MEDS ORDERED: FLUDROCORTISONE ACETATE 0.1 MG TABLET (FP) PO SCH (10:00)
--- NOTE | 2019-07-27 16:27 | PN ---
Progress Note, Physician History of Present Illness: AWAKE ON HIGH FLOW O2 BREATHING NON-LABORED MORE LETHARGIC AFEBRILE WBC SL INCREASED - Current Medication List Current Medications: Active Medications Albuterol Sulfate (Ventolin 0.083% Nebulizer Soln -) 1 amp NEB Q4H PRN PRN Reason: SHORT OF BREATH/WHEEZING Albuterol/Ipratropium (Duoneb -) 1 amp NEB RQ4H [facility] Last Admin: 07/27/19 16:12 Dose: 1 amp Aspirin (Ecotrin -) 81 mg PO DAILY [facility] Last Admin: 07/27/19 09:51 Dose: 81 mg Chlorhexidine Gluconate (Hibiclens For Decolonization -) 1 applic TP HS [facility] Last Admin: 07/26/19 21:24 Dose: 1 applic Heparin Sodium (Porcine) (Heparin -) 5,000 unit SQ TID [facility] Last Admin: 07/27/19 14:17 Dose: 5,000 unit Hydrocortisone (Hytone 1% Cream -) 1 applic TP BID [facility] Last Admin: 07/27/19 09:51 Dose: 1 applic Fentanyl 500 mcg/ Dextrose 100 mls @ 5 mls/hr IVPB TITR [facility] Last Admin: 07/27/19 06:36 Dose: Not Given Piperacillin Sod/Tazobactam (Sod 3.375 gm/ Dextrose) 50 mls @ 100 mls/hr IVPB Q8H-IV [facility]; Protocol Last Admin: 07/27/19 09:52 Dose: 100 mls/hr Metoprolol Tartrate (Lopressor -) 25 mg PO BID [facility] Last Admin: 07/27/19 09:52 Dose: 25 mg Multi-Ingredient Ointment (Zinc Oxide) 1 applic TP DAILY [facility] Last Admin: 07/27/19 09:52 Dose: 1 applic Mupirocin (Bactroban Ointment (For Decolonization) -) 1 applic NS BID [facility] Stop: 07/30/19 09:59 Last Admin: 07/27/19 09:50 Dose: 1 applic Nystatin (Mycostatin Cream -) 1 applic TP BID [facility] Last Admin: 07/27/19 09:52 Dose: 1 applic Sertraline HCl (Zoloft -) 50 mg PO DAILY [facility] Valsartan (Diovan -) 40 mg PO DAILY [facility] Last Admin: 07/27/19 09:51 Dose: 40 mg - Objective Vital Signs: Vital Signs Temperature 98 F 07/27/19 14:00 Pulse Rate 85 07/27/19 14:00 Respiratory Rate 18 07/27/19 14:00 Blood Pressure 109/33 L 07/27/19 14:00 O2 Sat by Pulse Oximetry (%) 91 L 07/26/19 08:48 Constitutional: Yes: Cachectic Cardiovascular: Yes: Regular Rate and Rhythm, S1, S2 Respiratory: Yes: Diminished Gastrointestinal: Yes: Normal Bowel Sounds, Soft Labs: CBC, BMP 07/27/19 06:15 07/27/19 06:15 INR, PTT INR 1.16 (0.83-1.09) H 07/25/19 01:00 Assessment/Plan RESP FAILURE R/O PNEUMONIA LEUKOCYTOSIS LACTIC ACIDOSIS CONTINUE EMPIRIC ZOSYN
[2019-07-27] MEDS: SERTRALINE HCL 50 MG TABLET (FP) PO SCH (17:28)
--- NOTE | 2019-07-27 17:52 | PN ---
Physical Exam: SUBJECTIVE: Patient seen and examined at bedside. She is tolerating high flow oxygen well. She offers no complaints today OBJECTIVE: Vital Signs Period Temp Pulse Resp BP Sys/Da Silva Pulse Ox Last 24 Hr 98 F-98.7 F 65-85 14-22 109-166/27-82 GENERAL: Alert and intubated. On high flow 02. HEAD: NC EYES: NELSON, EOMI, conjunctiva clear. ENT: Ears normal, nares patent, oropharynx clear without exudates. Moist mucous membranes. NECK: No lymphadenopathy, some JVD LUNGS: CTA LEFT > RIGHT. No adventitous sounds. No accessory muscle use. HEART: RRR s1 s2. 2/6 systolic murmur radiating to back. ABDOMEN: Soft, BS present in all 4 quadrants, non-distended, no JVD, MUSCULOSKELETAL: Kyphosis. Left hand contracted (chronic). No CVA tenderness. UPPER EXTREMITIES: 2+ pulses, warm, well-perfused. No cyanosis. No clubbing. No peripheral edema. LOWER EXTREMITIES: 2+ pulses, warm, well-perfused. No calf tenderness. No peripheral edema. NEUROLOGICAL: No focal deficits. Cranial nerves II-XII intact. Normal speech. PSYCHIATRIC: Cooperative. Good eye contact. Appropriate mood and affect. SKIN: Resolving RUE ecchymosis extending down flank and spared in certain areas . Echymosis on flexor surface of RUE. Warm, dry, normal turgor, normal capillary refill. Ducubitus ulcer on sacrum. Laboratory Results - last 24 hr 07/26/19 07/27/19 07/27/19 17:30 06:15 06:15 WBC 12.1 H RBC 4.04 Hgb 12.0 Hct 37.4 MCV 92.6 MCH 29.8 MCHC 32.2 RDW 14.1 Plt Count 293 MPV 9.6 Absolute Neuts (auto) 8.5 H Neutrophils % 70.1 Lymphocytes % 18.1 Monocytes % 10.2 Eosinophils % 0.8 Basophils % 0.8 Nucleated RBC % 0 Sodium 143 Potassium 4.2 3.8 Chloride 101 Carbon Dioxide 36 H Anion Gap 7 L BUN 23.3 H Creatinine 0.3 L Est GFR (CKD-EPI)AfAm 120.16 Est GFR (CKD-EPI)NonAf 103.67 Random Glucose 111 H Calcium 9.3 Phosphorus 2.6 Magnesium 2.1 Total Bilirubin 1.0 AST 15 ALT 37 Alkaline Phosphatase 83 Total Protein 5.9 L Albumin 3.0 L Active Medications Generic Name Dose Route Start Last Admin Trade Name [place] PRN Reason Stop Dose Admin Albuterol Sulfate 1 amp 07/25/19 11:44 Ventolin 0.083% Nebulizer Soln - NEB Q4H PRN SHORT OF BREATH/WHEEZING Albuterol/Ipratropium 1 amp 07/25/19 12:38 07/27/19 16:12 Duoneb - NEB 1 amp RQ4H LISA Administration Aspirin 81 mg 07/26/19 10:00 07/27/19 09:51 Ecotrin - PO 81 mg DAILY LISA Administration Chlorhexidine Gluconate 1 applic 07/25/19 22:00 07/26/19 21:24 Hibiclens For Decolonization - TP 1 applic HS LISA Administration Heparin Sodium (Porcine) 5,000 unit 07/25/19 14:00 07/27/19 14:17 Heparin - SQ 5,000 unit TID LISA Administration Hydrocortisone 1 applic 07/25/19 22:00 07/27/19 09:51 Hytone 1% Cream - TP 1 applic BID LISA Administration Fentanyl 500 mcg/ Dextrose 100 mls @ 5 mls/hr 07/25/19 03:30 07/27/19 06:36 IVPB Not Given TITR LISA 25 MCG/HR Piperacillin Sod/Tazobactam 50 mls @ 100 mls/hr 07/25/19 11:15 07/27/19 17:28 Sod 3.375 gm/ Dextrose IVPB 100 mls/hr Q8H-IV LISA Administration Protocol Metoprolol Tartrate 25 mg 07/27/19 10:00 07/27/19 09:52 Lopressor - PO 25 mg BID LISA Administration Multi-Ingredient Ointment 1 applic 07/26/19 10:00 07/27/19 09:52 Zinc Oxide TP 1 applic DAILY LISA Administration Mupirocin 1 applic 07/25/19 10:00 07/27/19 09:50 Bactroban Ointment (For Decolonization) - NS 07/30/19 09:59 1 applic BID LISA Administration Nystatin 1 applic 07/25/19 22:00 07/27/19 09:52 Mycostatin Cream - TP 1 applic BID LISA Administration Sertraline HCl 50 mg 07/27/19 15:15 07/27/19 17:28 Zoloft - PO 50 mg DAILY LISA Administration Valsartan 40 mg 07/27/19 10:00 07/27/19 09:51 Diovan - PO 40 mg DAILY LISA Administration ASSESSMENT/PLAN: 88 y/o female PMH HTN, HFpEF, depression, chronic RIGHT subdural hematoma, ETOH abuse, RIGHT carotid artery stenosis, and recent admission for acute hypoxic hypercapnic respiratory failure. Pt brought to hospital after CLOUD ENGINEER found pt to be tachypnic and demonstrating increased work of breathing. She was placed on non-rebreather and oxygen saturation remained low. She was intubated and brought to the ICU. She is now s/p extubation, saturating well. Must establish goals of care and how to objectively avoid re-hospitalization. # Acute hypoxic, hypercapnic respiratory failure: HF vs aspiration PNA - Cont. ICU care as BP has been low and pt vol depleted; difficult central line placement. - Currently on levophed 2 mcg - Troponin of 0.03 - Monitor i/o; lasix to be held by ICU team's monitoring - Cont. zosyn 3.375 gm IV q8h - Diastolic left ventricular dysfunction with clinical class 0-I [place] [employer] classification left ventricular failure/elevated B-type natriuretic peptide- most likely related to sepsis syndrome. Moderate pulmonary HTN. - Maintain MAP > 65 - Echo from last admission: mitral valve regurg, aortic regurg. Echo done : EF 55-60%, mild MR, pulm HTN, & AR - Renovascular US r/o renal artery stenosis to help elucidate acute decompensation # RIGHT sided Contact dermatitis, stage 2 sacral pressure ulcer - cortisone 1% BID to a - zinc oxide for decubital ulcer - vaseline for lips # HTN - Wean levophed today - Hold IVF and furosemide today CARDIOLOGY REC - Recommend initiation of beta-tino therapy, hemodynamics permitting, Lopressor therapy at 25 mg twice daily (once off of pressor therapy) - Recommend initiation of JOHANNA inhibitor or angiotensin receptor tino therapy , hemodynamics permitting (once off of pressor therapy) - Diuretics- Lasix IV prn as needed and with caution- hold today - Continue ASA 81 # Leukocytosis - WBC 12.1 - Left shift # F/E/N - NO FLUIDS, currently being diuresed - Cont. to monitor - Thin liquids # DVT prophylaxis - Heparin SQ # Disposition - Full code - Discuss GOC with family Enrrique Lin MD Visit type - Emergency Visit Emergency Visit: No - New Patient This patient is new to me today: No - Critical Care Critical Care patient: Yes Total Critical Care Time (in minutes): 40 Critical Care Statement: The care of this patient involved high complexity decision making to prevent further life threatening deterioration of the patient 's condition and/or to evaluate & treat vital organ system(s) failure or risk of failure. ATTENDING PHYSICIAN STATEMENT I saw and evaluated the patient. I reviewed the resident's note and discussed the case with the resident. I agree with the resident's findings and plan as documented. SUBJECTIVE: OBJECTIVE: ASSESSMENT AND PLAN:
[2019-07-27] MEDS: CHLORHEXIDINE GLUCONATE 4% CLEANSER FOR DECOLONIZATION TP SCH (21:11)
[2019-07-28] MEDS: ALBUTEROL SO4 2.5/IPRATROPIUM 0.5 INH SOL 3 ML VIAL.NEB. NEB SCH ×5 (00:06→20:54)
[2019-07-28] MEDS: PIPERACILLIN/TAZOB 3.375 GM 3.375 GM in DEXTROSE 5%-WATER - 50 ML IVPB SCH ×3 (01:41→17:13)
[2019-07-28] MEDS: FENTANYL INJECTION 500 MCG in DEXTROSE 5%-WATER - 90 ML IVPB SCH (05:14)
[2019-07-28] MEDS: HEPARIN NA (PORCINE) 5,000 UNITS/ML 1ML VIAL SQ SCH ×5 (05:40→22:24)
[2019-07-28 06:00] LABS: BASO % 1.6 % (0-2.0); EOS % 1.1 % (0-4.5); HEMATOCRIT 35.1 % (32.4-45.2); HEMOGLOBIN 11.4 GM/dL (10.7-15.3); LYMPH % 20.8 % (8-40); MCH 29.8 pg (25.7-33.7); MCHC 32.4 g/dl (32.0-36.0); MEAN CELL VOLUME 91.9 fl (80-96); NEUT % 66.5 % (42.8-82.8); PLATELET COUNT 231 K/MM3 (134-434); RBC 3.82 M/mm3 (3.60-5.2); RDW 14.1 % (11.6-15.6); WHITE BLOOD COUNT 9.3 K/mm3 (4.0-10.0)
[2019-07-28 06:43] LABS: ALBUMIN 2.8 g/dl (3.4-5.0); BILIRUBIN,TOTAL 0.5 mg/dL (0.2-1); BLOOD UREA NITROGEN 22.8 mg/dL (7-18); CALCIUM 8.6 mg/dL (8.5-10.1); CREATININE 0.4 mg/dL (0.55-1.3); PHOSPHOROUS 3.2 mg/dL (2.5-4.9); POTASSIUM 3.7 mmol/L (3.5-5.1); TOT PROT 5.4 g/dl (6.4-8.2)
[2019-07-28] MEDS ORDERED: KCL 10 MEQ IVPB 10 MEQ/100 ML INFUS.BAG IVPB SCH (07:45)
[2019-07-28] MEDS ORDERED: POTASSIUM CHLORIDE TABS 20 MEQ TABLET.ER (FP) PO ONE (08:30)
[2019-07-28] MEDS ORDERED: PIPERACILLIN/TAZOBACTAM 3.375 GM VIAL IVPB ONE ×2 (09:07→16:46)
[2019-07-28] MEDS ORDERED: DEXTROSE 5%-WATER - 50 ML IVPB ONE ×2 (09:07→16:46)
[2019-07-28] MEDS: ASPIRIN COATED 81 MG TABLET.EC PO SCH (09:14)
[2019-07-28] MEDS: VALSARTAN 40 MG TABLET (FP) PO SCH (09:14)
[2019-07-28] MEDS: HYDROCORTISONE 1% TOPICAL CREAM 30 GM TUBE TP SCH ×2 (09:14→22:40)
[2019-07-28] MEDS: METOPROLOL TARTRATE 25 MG TABLET (FP) PO SCH ×2 (09:14→22:24)
[2019-07-28] MEDS: MUPIROCIN 2% TOPICAL OINTMENT FOR DECOLONIZATION NS SCH ×2 (09:14→22:20)
[2019-07-28] MEDS: SERTRALINE HCL 50 MG TABLET (FP) PO SCH (09:14)
[2019-07-28] MEDS: ZINC OXIDE 20% TOPICAL OINTMENT 30 GM TUBE TP SCH (09:15)
[2019-07-28] MEDS: NYSTATIN 100,000 UNIT/GM TOPICAL CREAM 15 GM TUBE TP SCH ×2 (09:15→22:41)
--- NOTE | 2019-07-28 10:07 | PN ---
Progress Note, Physician History of Present Illness: Dyspnea and O2 requirement continues to improve with diuresis. - Current Medication List Current Medications: Active Medications Albuterol Sulfate (Ventolin 0.083% Nebulizer Soln -) 1 amp NEB Q4H PRN PRN Reason: SHORT OF BREATH/WHEEZING Albuterol/Ipratropium (Duoneb -) 1 amp NEB RQ4H [facility] Last Admin: 07/28/19 08:28 Dose: 1 amp Aspirin (Ecotrin -) 81 mg PO DAILY [facility] Last Admin: 07/28/19 09:14 Dose: 81 mg Chlorhexidine Gluconate (Hibiclens For Decolonization -) 1 applic TP HS [facility] Last Admin: 07/27/19 21:11 Dose: 1 applic Heparin Sodium (Porcine) (Heparin -) 5,000 unit SQ TID [facility] Last Admin: 07/28/19 05:40 Dose: 5,000 unit Hydrocortisone (Hytone 1% Cream -) 1 applic TP BID [facility] Last Admin: 07/28/19 09:14 Dose: 1 applic Fentanyl 500 mcg/ Dextrose 100 mls @ 5 mls/hr IVPB TITR [facility] Last Admin: 07/28/19 05:14 Dose: Not Given Piperacillin Sod/Tazobactam (Sod 3.375 gm/ Dextrose) 50 mls @ 100 mls/hr IVPB Q8H-IV [facility]; Protocol Last Admin: 07/28/19 09:15 Dose: 100 mls/hr Metoprolol Tartrate (Lopressor -) 25 mg PO BID [facility] Last Admin: 07/28/19 09:14 Dose: 25 mg Multi-Ingredient Ointment (Zinc Oxide) 1 applic TP DAILY [facility] Last Admin: 07/28/19 09:15 Dose: 1 applic Mupirocin (Bactroban Ointment (For Decolonization) -) 1 applic NS BID [facility] Stop: 07/30/19 09:59 Last Admin: 07/28/19 09:14 Dose: 1 applic Nystatin (Mycostatin Cream -) 1 applic TP BID [facility] Last Admin: 07/28/19 09:15 Dose: 1 applic Sertraline HCl (Zoloft -) 50 mg PO DAILY [facility] Last Admin: 07/28/19 09:14 Dose: 50 mg Valsartan (Diovan -) 40 mg PO DAILY [facility] Last Admin: 01/02/20 09:14 Dose: 40 mg - Objective Vital Signs: Vital Signs Temperature 97.8 F 07/28/19 04:00 Pulse Rate 80 07/28/19 08:00 Respiratory Rate 20 07/28/19 09:00 Blood Pressure 167/42 L 07/28/19 08:00 O2 Sat by Pulse Oximetry (%) 100 07/28/19 09:00 Constitutional: Yes: No Distress, Calm, Thin Neck: Yes: Supple Cardiovascular: Yes: Regular Rate and Rhythm Respiratory: Yes: Regular, Diminished, On Nasal O2 Gastrointestinal: Yes: Normal Bowel Sounds, Soft Genitourinary: Yes: Mills Present Edema: No Labs: CBC, BMP 07/28/19 05:02 07/28/19 05:02 INR, PTT INR 1.16 (0.83-1.09) H 07/25/19 01:00 - ....Imaging Chest X-ray: Report Reviewed (Weak inspiration, bibasilar changes stable from previous) EKG: Report Reviewed (Tele: NSR) Problem List - Problems (1) Acute respiratory failure with hypoxia and hypercarbia Code(s): J96.01 - ACUTE RESPIRATORY FAILURE WITH HYPOXIA; J96.02 - ACUTE RESPIRATORY FAILURE WITH HYPERCAPNIA (2) Acute diastolic heart failure Code(s): I50.31 - ACUTE DIASTOLIC (CONGESTIVE) HEART FAILURE (3) Iatrogenic pneumothorax Code(s): J95.811 - POSTPROCEDURAL PNEUMOTHORAX (4) Coronary artery disease Code(s): I25.10 - ATHSCL HEART DISEASE OF [place] CORONARY ARTERY W/O ANG PCTRS Qualifiers: Coronary Disease-Associated Artery/Lesion type: [place] artery [place] vs. transplanted heart: craig heart Associated angina: without angina Qualified Code(s): I25.10 - Atherosclerotic heart disease of [place] coronary artery without angina pectoris Assessment/Plan 07/12/2019 echo: Normal biventrucular size and fxn, mod MR, AR 1. Acute Hypoxic and Hypercapneic Respiratory Failure resolving 2. Acute on chronic diastolic heart failure resolving 3. R/o aspiration pneumonia 4. Coronary artery disease with h/o demand ischemic injury angina pectoris 5. Hypertensive cardiovascular disease, hypotension related to the above-noted sepsis syndrome 6. History of non-sustained ventricular tachycardia 7. Right common carotid stenosis, moderate in severity 8. H/o iatrogenic pneumothorax post right chest tube insertion/complication of subclavian line insertion 9. Chronic Subdural Hematoma 10. 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 Pre-renal azotemia PLAN: 1. Diuresis as needed with monitor diuretic response, renal fxn and electrolytes 2. Complete empiric antibiotic course per C&S 3. Continue ASA 81 qd, metoprolol 25 bid, Diovan 40 qd as hemodynamics permit 4. Wean FIO2 to maintain saO2, BD as needed 5. Renovascular US r/o renal artery stenosis 6. DVT/GI prophylaxis 7. Plan of care d/w family
--- NOTE | 2019-07-28 10:57 | PN ---
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 CXR: improving bilateral infiltrates Doing well. Verbal. Euphonic voice. (-) 3 oz water test via straw. Masticating cracker wwell. Suggest-Soft,reg diet, thin liquids Monitor tolerance
--- NOTE | 2019-07-28 12:01 | PN ---
Teaching Attending Note Name of Resident: Zoila Espinosa ATTENDING PHYSICIAN STATEMENT I saw and evaluated the patient. I reviewed the resident's note and discussed the case with the resident. I agree with the resident's findings and plan as documented. SUBJECTIVE: Patient seen and examined in the ICU. Awake and alert on NC O2. Less SOB. No CP. No acute events overnight. CXR: improving bilateral infiltrates Intake & Output 07/25/19 07/26/19 07/27/19 07/28/19 23:59 23:59 23:59 23:59 Intake Total 250 1020 775 250 Output Total 1110 1700 400 300 Balance -860 -680 375 -50 Weight 97 lb 1.6 oz 97 lb 97 lb 3 oz 97 lb 3.2 oz Last Vital Signs Temp Pulse Resp BP Pulse Ox 97.8 F 80 20 167/42 L 100 07/28/19 04:00 07/28/19 08:00 07/28/19 09:00 07/28/19 08:00 07/28/19 09:00 Active Medications Albuterol Sulfate (Ventolin 0.083% Nebulizer Soln -) 1 amp NEB Q4H PRN PRN Reason: SHORT OF BREATH/WHEEZING Albuterol/Ipratropium (Duoneb -) 1 amp NEB RQ4H [facility] Last Admin: 07/28/19 08:28 Dose: 1 amp Aspirin (Ecotrin -) 81 mg PO DAILY [facility] Last Admin: 07/28/19 09:14 Dose: 81 mg Chlorhexidine Gluconate (Hibiclens For Decolonization -) 1 applic TP HS [facility] Last Admin: 07/27/19 21:11 Dose: 1 applic Furosemide (Lasix -) 20 mg PO DAILY [facility] Heparin Sodium (Porcine) (Heparin -) 5,000 unit SQ TID [facility] Last Admin: 07/28/19 05:40 Dose: 5,000 unit Hydrocortisone (Hytone 1% Cream -) 1 applic TP BID [facility] Last Admin: 07/28/19 09:14 Dose: 1 applic Fentanyl 500 mcg/ Dextrose 100 mls @ 5 mls/hr IVPB TITR [facility] Last Admin: 07/28/19 05:14 Dose: Not Given Piperacillin Sod/Tazobactam (Sod 3.375 gm/ Dextrose) 50 mls @ 100 mls/hr IVPB Q8H-IV [facility]; Protocol Last Admin: 07/28/19 09:15 Dose: 100 mls/hr Metoprolol Tartrate (Lopressor -) 25 mg PO BID [facility] Last Admin: 07/28/19 09:14 Dose: 25 mg Multi-Ingredient Ointment (Zinc Oxide) 1 applic TP DAILY [facility] Last Admin: 07/28/19 09:15 Dose: 1 applic Mupirocin (Bactroban Ointment (For Decolonization) -) 1 applic NS BID [facility] Stop: 07/30/19 09:59 Last Admin: 07/28/19 09:14 Dose: 1 applic Nystatin (Mycostatin Cream -) 1 applic TP BID [facility] Last Admin: 07/28/19 09:15 Dose: 1 applic Sertraline HCl (Zoloft -) 50 mg PO DAILY [facility] Last Admin: 07/28/19 09:14 Dose: 50 mg Valsartan (Diovan -) 40 mg PO DAILY [facility] Last Admin: 07/28/19 09:14 Dose: 40 mg Constitutional: Yes: Awake and alert, NAD Eyes: Yes: Conjunctiva Clear, PERRL HENT: Yes: Atraumatic, Normocephalic Neck: Yes: Supple, Trachea Midline Cardiovascular: Yes: Regular Rate and Rhythm, Murmur, S1, S2 Respiratory: Yes: Improving bilateral Rales Gastrointestinal: Yes: Soft, (+) Bowel Sounds Renal/: Yes: Mills Present Musculoskeletal: Yes: WNL Extremities: Yes: WNL Edema: No Peripheral Pulses WNL: Yes Integumentary: Yes: WNL, Other (dermatitis) Neurological: Yes: Non-focal Labs: Laboratory Results - last 24 hr 07/26/19 07/27/19 07/27/19 17:30 06:15 06:15 WBC 12.1 H RBC 4.04 Hgb 12.0 Hct 37.4 MCV 92.6 MCH 29.8 MCHC 32.2 RDW 14.1 Plt Count 293 MPV 9.6 Absolute Neuts (auto) 8.5 H Neutrophils % 70.1 Lymphocytes % 18.1 Monocytes % 10.2 Eosinophils % 0.8 Basophils % 0.8 Nucleated RBC % 0 Sodium 143 Potassium 4.2 3.8 Chloride 101 Carbon Dioxide 36 H Anion Gap 7 L BUN 23.3 H Creatinine 0.3 L Est GFR (CKD-EPI)AfAm 120.16 Est GFR (CKD-EPI)NonAf 103.67 Random Glucose 111 H Calcium 9.3 Phosphorus 2.6 Magnesium 2.1 Total Bilirubin 1.0 AST 15 ALT 37 Alkaline Phosphatase 83 Total Protein 5.9 L Albumin 3.0 L Problem List - Problems (1) Hypercarbia Code(s): R06.89 - OTHER ABNORMALITIES OF BREATHING (2) Acute respiratory failure with hypoxia and hypercarbia Code(s): J96.01 - ACUTE RESPIRATORY FAILURE WITH HYPOXIA; J96.02 - ACUTE RESPIRATORY FAILURE WITH HYPERCAPNIA (3) Acute diastolic heart failure Code(s): I50.31 - ACUTE DIASTOLIC (CONGESTIVE) HEART FAILURE (4) Respiratory failure Code(s): J96.90 - RESPIRATORY FAILURE, UNSP, UNSP W HYPOXIA OR HYPERCAPNIA Qualifiers: Chronicity: acute Respiratory failure complication: hypoxia and hypercapnia Qualified Code(s): J96.01 - Acute respiratory failure with hypoxia ; J96.02 - Acute respiratory failure with hypercapnia Assessment/Plan HFpEF HTN Depression 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
[2019-07-28] MEDS ORDERED: FUROSEMIDE 40 MG/4 ML INJECTABLE VIAL IVPUSH ONE (12:18)
--- NOTE | 2019-07-28 12:18 | PN ---
Physical Exam: SUBJECTIVE: Patient seen and examined. No acute overnight events. OBJECTIVE: Vital Signs Period Temp Pulse Resp BP Sys/Da Silva Pulse Ox Last 24 Hr 97.8 F-98.1 F 65-85 16-23 109-167/30-42 100-100 GENERAL: AOx3 NAD HEAD: NCAT. Conjunctiva clear. On nasal cannula 2L. LUNGS: CTABL HEART: RRR S1S2 no mrg ABDOMEN: Soft, NTND. +BS. EXTREMITIES: 2+ pulses, warm, well-perfused, no edema. NEUROLOGICAL: CN2-12 intact. PSYCH: Normal mood, normal affect. Laboratory Results - last 24 hr 07/28/19 07/28/19 05:02 05:02 WBC 9.3 RBC 3.82 Hgb 11.4 Hct 35.1 MCV 91.9 MCH 29.8 MCHC 32.4 RDW 14.1 Plt Count 231 D MPV 10.0 Absolute Neuts (auto) 6.2 Neutrophils % 66.5 Lymphocytes % 20.8 Monocytes % 10.0 Eosinophils % 1.1 Basophils % 1.6 Nucleated RBC % 0 Sodium 142 Potassium 3.7 Chloride 101 Carbon Dioxide 35 H Anion Gap 5 L BUN 22.8 H Creatinine 0.4 L Est GFR (CKD-EPI)AfAm 109.31 Est GFR (CKD-EPI)NonAf 94.31 Random Glucose 89 Calcium 8.6 Phosphorus 3.2 Magnesium 2.0 Total Bilirubin 0.5 AST 13 L ALT 31 Alkaline Phosphatase 78 Total Protein 5.4 L Albumin 2.8 L Active Medications Generic Name Dose Route Start Last Admin Trade Name Freq PRN Reason Stop Dose Admin Albuterol Sulfate 1 amp 07/25/19 11:44 Ventolin 0.083% Nebulizer Soln - NEB Q4H PRN SHORT OF BREATH/WHEEZING Albuterol/Ipratropium 1 amp 07/25/19 12:38 07/28/19 08:28 Duoneb - NEB 1 amp RQ4H [facility] Administration Aspirin 81 mg 07/26/19 10:00 07/28/19 09:14 Ecotrin - PO 81 mg DAILY [facility] Administration Chlorhexidine Gluconate 1 applic 07/25/19 22:00 07/27/19 21:11 Hibiclens For Decolonization - TP 1 applic HS [facility] Administration Furosemide 20 mg 07/29/19 10:00 Lasix - PO DAILY [facility] Heparin Sodium (Porcine) 5,000 unit 07/25/19 14:00 07/28/19 05:40 Heparin - SQ 5,000 unit TID [facility] Administration Hydrocortisone 1 applic 07/25/19 22:00 07/28/19 09:14 Hytone 1% Cream - TP 1 applic BID [facility] Administration Fentanyl 500 mcg/ Dextrose 100 mls @ 5 mls/hr 07/25/19 03:30 07/28/19 05:14 IVPB Not Given TITR [facility] 25 MCG/HR Piperacillin Sod/Tazobactam 50 mls @ 100 mls/hr 07/25/19 11:15 07/28/19 09:15 Sod 3.375 gm/ Dextrose IVPB 100 mls/hr Q8H-IV [facility] Administration Protocol Metoprolol Tartrate 25 mg 07/27/19 10:00 07/28/19 09:14 Lopressor - PO 25 mg BID [facility] Administration Multi-Ingredient Ointment 1 applic 07/26/19 10:00 07/28/19 09:15 Zinc Oxide TP 1 applic DAILY [facility] Administration Mupirocin 1 applic 07/25/19 10:00 07/28/19 09:14 Bactroban Ointment (For Decolonization) - NS 07/30/19 09:59 1 applic BID [facility] Administration Nystatin 1 applic 07/25/19 22:00 07/28/19 09:15 Mycostatin Cream - TP 1 applic BID [facility] Administration Sertraline HCl 50 mg 07/27/19 15:15 07/28/19 09:14 Zoloft - PO 50 mg DAILY [facility] Administration Valsartan 40 mg 07/27/19 10:00 07/28/19 09:14 Diovan - PO 40 mg DAILY [facility] Administration ASSESSMENT/PLAN: 88 y.o. F PMH HFpEF, HTN, depression, right CA stenosis, chronic R. subdural hematoma, recent intubation for hypoxic/hypercarbic respiratory failure secondary to PNA, recent d/c from hospital 07/23, presented with dyspnea s/p intubation 2/2 acute decompensated diastolic HF. Extubated 07/25, now on nasal cannula. #CENTER REP/ Psych -Hx of depression, alcohol abuse; continue to monitor #Cardiovascular -Acute Decompensated diastolic CHF -Restarting home dose lasix (20mg daily PO) tomorrow 07/29/2019 -Hx of HTN, R CA stenosis, Aortic Insufficiency w/ widened Pulse Pressure -Off pressors; MAPs in 60s today; CVC removed -C/w ASA 81 qd, metoprolol 25 bid, valsartan 40 qd -cardio following #Pulm -CXR improving -S/p Vanc/Zosyn x1 upon admission; now on day#4 zosyn -Satting well on 1.5L NC -Duonebs/Alb nebs PRN #Renal -Cr stable -Renal U/S ordered to r/o renal hypertension #ID -Leukocytosis resolved -Continue zosyn as per ID recs (today day #4 abx) -Leg/S. pneumo neg, urine, sputum, blood cultures negative #PPX -DVT: Heparin SQ #FEN -no standing fluids -monitor cmp replete lytes prn -soft regular diet, evaluated by S&S #Dispo tele Visit type - Emergency Visit Emergency Visit: No - New Patient This patient is new to me today: No - Critical Care Critical Care patient: Yes Total Critical Care Time (in minutes): 36 Critical Care Statement: The care of this patient involved high complexity decision making to prevent further life threatening deterioration of the patient 's condition and/or to evaluate & treat vital organ system(s) failure or risk of failure. ATTENDING PHYSICIAN STATEMENT I saw and evaluated the patient. I reviewed the resident's note and discussed the case with the resident. I agree with the resident's findings and plan as documented. SUBJECTIVE: OBJECTIVE: ASSESSMENT AND PLAN:
[2019-07-28] MEDS ORDERED: FENTANYL INJECTION 500 MCG in DEXTROSE 5%-WATER - 90 ML IVPB SCH (13:21)
[2019-07-28] MEDS ORDERED: ALBUTEROL SO4 0.083% IH SOL 2.5 MG/3 ML VIAL.NEB. NEB PRN (13:21)
--- NOTE | 2019-07-28 15:27 | PN ---
Physical Exam: SUBJECTIVE: Patient seen and examined at bedside. She is now utilizing 2L NC, resting comfortably in ICU bed. She offers no complaints today. Plan to transfer to telemetry today. OBJECTIVE: Vital Signs Period Temp Pulse Resp BP Sys/Da Silva Pulse Ox Last 24 Hr 97.8 F-98.1 F 65-82 17-65 119-167/30-42 100-100 GENERAL: AOx3, in good spirits HEAD: NC EYES: NELSON, EOMI, conjunctiva clear. ENT: Ears normal, nares patent, oropharynx clear without exudates. Moist mucous membranes. NECK: No lymphadenopathy, some JVD LUNGS: CTA LEFT > RIGHT. No adventitous sounds. No accessory muscle use. HEART: RRR s1 s2. 2/6 systolic murmur radiating to back. ABDOMEN: Soft, BS present in all 4 quadrants, non-distended, no JVD, MUSCULOSKELETAL: Kyphosis. Left hand contracted (chronic). No CVA tenderness. UPPER EXTREMITIES: 2+ pulses, warm, well-perfused. No cyanosis. No clubbing. No peripheral edema. LOWER EXTREMITIES: 2+ pulses, warm, well-perfused. No calf tenderness. No peripheral edema. NEUROLOGICAL: No focal deficits. Cranial nerves II-XII intact. Normal speech. PSYCHIATRIC: Cooperative. Good eye contact. Appropriate mood and affect. SKIN: Resolving RUE ecchymosis extending down flank and spared in certain areas . Echymosis on flexor surface of RUE. Warm, dry, normal turgor, normal capillary refill. Ducubitus ulcer on sacrum. Laboratory Results - last 24 hr 07/28/19 07/28/19 05:02 05:02 WBC 9.3 RBC 3.82 Hgb 11.4 Hct 35.1 MCV 91.9 MCH 29.8 MCHC 32.4 RDW 14.1 Plt Count 231 D MPV 10.0 Absolute Neuts (auto) 6.2 Neutrophils % 66.5 Lymphocytes % 20.8 Monocytes % 10.0 Eosinophils % 1.1 Basophils % 1.6 Nucleated RBC % 0 Sodium 142 Potassium 3.7 Chloride 101 Carbon Dioxide 35 H Anion Gap 5 L BUN 22.8 H Creatinine 0.4 L Est GFR (CKD-EPI)AfAm 109.31 Est GFR (CKD-EPI)NonAf 94.31 Random Glucose 89 Calcium 8.6 Phosphorus 3.2 Magnesium 2.0 Total Bilirubin 0.5 AST 13 L ALT 31 Alkaline Phosphatase 78 Total Protein 5.4 L Albumin 2.8 L Active Medications Generic Name Dose Route Start Last Admin Trade Name [place] PRN Reason Stop Dose Admin Albuterol Sulfate 1 amp 07/28/19 13:21 Ventolin 0.083% Nebulizer Soln - NEB Q4H PRN SHORT OF BREATH/WHEEZING Albuterol/Ipratropium 1 amp 07/28/19 16:00 Duoneb - NEB RQ4H [facility] Aspirin 81 mg 07/29/19 10:00 Ecotrin - PO DAILY [facility] Chlorhexidine Gluconate 1 applic 07/28/19 22:00 Hibiclens For Decolonization - TP HS [facility] Furosemide 20 mg 07/29/19 10:00 Lasix - PO DAILY [facility] Heparin Sodium (Porcine) 5,000 unit 07/28/19 14:00 07/28/19 15:15 Heparin - SQ Not Given TID [facility] Hydrocortisone 1 applic 07/28/19 22:00 Hytone 1% Cream - TP BID [facility] Fentanyl 500 mcg/ Dextrose 100 mls @ 5 mls/hr 07/28/19 13:21 IVPB TITR [facility] Protocol 25 MCG/HR Piperacillin Sod/Tazobactam 50 mls @ 100 mls/hr 07/28/19 18:00 Sod 3.375 gm/ Dextrose IVPB Q8H-IV [facility] Protocol Metoprolol Tartrate 25 mg 07/28/19 22:00 Lopressor - PO BID [facility] Multi-Ingredient Ointment 1 applic 07/29/19 10:00 Zinc Oxide TP DAILY [facility] Mupirocin 1 applic 07/28/19 22:00 Bactroban Ointment (For Decolonization) - NS 07/30/19 09:59 BID [facility] Nystatin 1 applic 07/28/19 22:00 Mycostatin Cream - TP BID [facility] Sertraline HCl 50 mg 07/29/19 10:00 Zoloft - PO DAILY [facility] Valsartan 40 mg 07/29/19 10:00 Diovan - PO DAILY [facility] ASSESSMENT/PLAN: 88 y/o female PMH HTN, HFpEF, depression, chronic RIGHT subdural hematoma, ETOH abuse, RIGHT carotid artery stenosis, and recent admission for acute hypoxic hypercapnic respiratory failure. Pt brought to hospital after HOSEMAN found pt to be tachypnic and demonstrating increased work of breathing. She was placed on non-rebreather and oxygen saturation remained low. She was intubated and brought to the ICU. She is now s/p extubation, saturating well. Must establish goals of care and how to objectively avoid re-hospitalization. # Acute hypoxic, hypercapnic respiratory failure: HF vs aspiration PNA - Now monitored in telemetry - Off levophed - Monitor i/o; no lasix or IVF and pt improving - HELD today: empiric zosyn 3.375 gm IV q8h. F/u ID rec - Diastolic left ventricular dysfunction with clinical class 0-I [employer] classification left ventricular failure/elevated B-type natriuretic peptide- most likely related to sepsis syndrome. Moderate pulmonary HTN. - Maintain MAP > 65 - Echo from last admission: mitral valve regurg, aortic regurg. Echo done : EF 55-60%, mild MR, pulm HTN, & AR - Renovascular US r/o renal artery stenosis to help elucidate acute decompensation # RIGHT sided Contact dermatitis, stage 2 sacral pressure ulcer - cortisone 1% BID to a - zinc oxide for decubital ulcer - vaseline for lips # HTN - Hold IVF and furosemide today CARDIOLOGY REC - ASA 81 mg qd, metoprolol 25 mg bid, Diovan 40 mg qd as hemodynamics permit - Diuretics- Lasix IV prn as needed and with caution- hold today # Leukocytosis - WBC 12.1 - Left shift # F/E/N - NO FLUIDS, hold diuretics, cautious PO intake - Cont. to monitor - Thin liquids # DVT prophylaxis - Heparin SQ # Disposition - Full code - Transfer to telemetry today - Discuss GOC with family Enrrique Lin MD Visit type - Emergency Visit Emergency Visit: No - New Patient This patient is new to me today: No - Critical Care Critical Care patient: Yes Total Critical Care Time (in minutes): 40 Critical Care Statement: The care of this patient involved high complexity decision making to prevent further life threatening deterioration of the patient 's condition and/or to evaluate & treat vital organ system(s) failure or risk of failure. ATTENDING PHYSICIAN STATEMENT I saw and evaluated the patient. I reviewed the resident's note and discussed the case with the resident. I agree with the resident's findings and plan as documented. SUBJECTIVE: OBJECTIVE: ASSESSMENT AND PLAN:
--- NOTE | 2019-07-28 16:38 | PN ---
Teaching Attending Note Name of Resident: Enrrique Lin ATTENDING PHYSICIAN STATEMENT I saw and evaluated the patient. I reviewed the resident's note and discussed the case with the resident. I agree with the resident's findings and plan as documented. SUBJECTIVE: Patient is in ICU , getting transferred to [facility]. Last Vital Signs Temp Pulse Resp BP Pulse Ox 97.8 F 80 20 167/42 L 100 07/28/19 04:00 07/28/19 08:00 07/28/19 09:00 07/28/19 08:00 07/28/19 09:00 GENERAL: The patient is awake, alert, and fully oriented, in NAD. HEAD: Normal with no signs of trauma. EYES: PERRL, extraocular movements intact, sclera anicteric, conjunctiva clear. ENT: Ears normal, on NC now, clear without exudates, moist mucous membranes. NECK: Trachea midline, full range of motion, supple. LUNGS: Breath sounds equal, decreased BS BL , no accessory muscle use. HEART: Regular rate and rhythm, S1, S2 without murmur, rub or gallop. ABDOMEN: Soft, NT, ND, normoactive bowel sounds, no guarding, no rebound, no hepatosplenomegaly, no masses. EXTREMITIES: 2+ pulses, warm, well-perfused, no edema. NEUROLOGICAL: Cranial nerves II through XII grossly intact. Normal speech, gait not observed. PSYCH: Normal mood, normal affect. SKIN: Warm, dry, normal turgor, no rashes or lesions noted CBCD WBC 9.3 K/mm3 (4.0-10.0) 07/28/19 05:02 RBC 3.82 M/mm3 (3.60-5.2) 07/28/19 05:02 Hgb 11.4 GM/dL (10.7-15.3) 07/28/19 05:02 Hct 35.1 % (32.4-45.2) 07/28/19 05:02 MCV 91.9 fl (80-96) 07/28/19 05:02 MCHC 32.4 g/dl (32.0-36.0) 07/28/19 05:02 RDW 14.1 % (11.6-15.6) 07/28/19 05:02 Plt Count 231 K/MM3 (134-434) D 07/28/19 05:02 MPV 10.0 fl (7.5-11.1) 07/28/19 05:02 CMP Sodium 142 mmol/L (136-145) 07/28/19 05:02 Potassium 3.7 mmol/L (3.5-5.1) 07/28/19 05:02 Chloride 101 mmol/L (98-107) 07/28/19 05:02 Carbon Dioxide 35 mmol/L (21-32) H 07/28/19 05:02 Anion Gap 5 MMOL/L (8-16) L 07/28/19 05:02 BUN 22.8 mg/dL (7-18) H 07/28/19 05:02 Creatinine 0.4 mg/dL (0.55-1.3) L 07/28/19 05:02 Random Glucose 89 mg/dL (74-106) 07/28/19 05:02 Calcium 8.6 mg/dL (8.5-10.1) 07/28/19 05:02 Total Bilirubin 0.5 mg/dL (0.2-1) 07/28/19 05:02 AST 13 U/L (15-37) L 07/28/19 05:02 ALT 31 U/L (13-61) 07/28/19 05:02 Alkaline Phosphatase 78 U/L (45-117) 07/28/19 05:02 Total Protein 5.4 g/dl (6.4-8.2) L 07/28/19 05:02 Albumin 2.8 g/dl (3.4-5.0) L 07/28/19 05:02 CARDIAC ENZYMES Troponin I 0.04 ng/ml (0.00-0.05) 07/25/19 13:40 Current Medications Generic Name Dose Route Start Last Admin Trade Name Freq PRN Reason Stop Dose Admin Albuterol Sulfate 1 amp 07/25/19 11:44 Ventolin 0.083% Nebulizer Soln - NEB Q4H PRN SHORT OF BREATH/WHEEZING Albuterol/Ipratropium 1 amp 07/25/19 12:38 07/27/19 08:14 Duoneb - NEB Not Given RQ4H [facility] Aspirin 81 mg 07/26/19 10:00 07/26/19 09:38 Ecotrin - PO 81 mg DAILY [facility] Administration Chlorhexidine Gluconate 1 applic 07/25/19 22:00 07/26/19 21:24 Hibiclens For Decolonization - TP 1 applic HS [facility] Administration Heparin Sodium (Porcine) 5,000 unit 07/25/19 14:00 07/27/19 06:37 Heparin - SQ 5,000 unit TID [facility] Administration Hydrocortisone 1 applic 07/25/19 22:00 07/26/19 21:23 Hytone 1% Cream - TP 1 applic BID [facility] Administration Fentanyl 500 mcg/ Dextrose 100 mls @ 5 mls/hr 07/25/19 03:30 07/27/19 06:36 IVPB Not Given TITR [facility] 25 MCG/HR Piperacillin Sod/Tazobactam 50 mls @ 100 mls/hr 07/25/19 11:15 07/27/19 02:11 Sod 3.375 gm/ Dextrose IVPB 100 mls/hr Q8H-IV [facility] Administration Protocol Metoprolol Tartrate 25 mg 07/27/19 10:00 Lopressor - PO BID L[facility] Multi-Ingredient Ointment 1 applic 07/26/19 10:00 07/26/19 09:57 Zinc Oxide TP 1 applic DAILY [facility] Administration Mupirocin 1 applic 07/25/19 10:00 07/26/19 21:23 Bactroban Ointment (For Decolonization) - NS 07/30/19 09:59 1 applic BID [facility] Administration Nystatin 1 applic 07/25/19 22:00 07/26/19 21:23 Mycostatin Cream - TP 1 applic BID [facility] Administration Valsartan 40 mg 07/27/19 10:00 Diovan - PO DAILY [facility] Home Medications Medication Instructions Recorded Sertraline HCl 50 mg PO DAILY 07/07/19 Calcium 500Mg/Vit-D 200 Units 1 tab PO BID 30 Days #60 tab 07/08/19 [Os-Silvio 500+D -] Albuterol Sulfate Inhaler - 1 puff IH Q4H PRN #1 inhaler 07/23/19 [Ventolin HFA Inhaler -] Aspirin 81 mg PO DAILY #30 tab.chew 07/23/19 Furosemide 20 mg PO DAILY 30 Days #30 tablet 07/23/19 Hydrocortisone 1% Ointment [Hytone 1 applic TP DAILY #1 tube 07/23/19 1% Ointment -] LORazepam [Ativan] 0.5 mg PO BID PRN tablet MDD 1.5 07/23/19 Metoprolol Tartrate [Lopressor -] 50 mg PO BID 30 Days #60 tablet 07/23/19 Petrolatum - White [Vaseline -] 1 applic TP DAILY applic 07/23/19 Valsartan [Diovan] 40 mg PO DAILY 30 Days #30 tablet 07/23/19 Zinc Oxide 1 applic TP BID #1 tube 07/23/19 Zinc Oxide 1 applic TP DAILY #1 oint..gm. 07/23/19 Microbiology 07/25/19 04:13 Blood - Peripheral Venous Blood Culture - Preliminary NO GROWTH OBTAINED AFTER 48 HOURS, INCUBATION TO CONTINUE FOR 3 DAYS. 07/25/19 01:15 Blood - Peripheral Venous Blood Culture - Preliminary NO GROWTH OBTAINED AFTER 48 HOURS, INCUBATION TO CONTINUE FOR 3 DAYS. 07/25/19 06:00 Sputum - Endotrachea Suction/Ventilator Gram Stain - Final 07/25/19 06:00 Sputum - Endotrachea Suction/Ventilator Sputum Culture - Preliminary NORMAL RESPIRATORY [place] 07/25/19 06:00 Urine - Urine Clean Catch Urine Culture - Final NO GROWTH OBTAINED 07/25/19 18:40 Urine - Urine [place] Legionella Antigen - Final 07/25/19 18:40 Urine - Urine [place] Streptococcus pneumoniae Antigen (M - Final ASSESSMENT AND PLAN: Patient is an 88yof with PMhx of diastolic dysfunction , HTN, depression, chronic R subdural hematoma ,ETOH abuse, R carotid artery stenosis, PNA, UTI, NSVT, with a recent admission for Acute resp failure due to PNA, Acute D CHF, NSTEMI and developed R iatrogenic pneumothorax, who was discharged home and returned 2 days later due to SOB and tachypnia. SHe was found to have acute hypoxic , hypercapnic resp failure and was intubated. #Acute hypoxic, hypercapnic resp failure. s/p extubation , s/p high flow oxygen , now on 2 liter NC , on IV zosyn per ID , hold lasix due to low bp , continue mucinex , no growth so far, cx is negative # s/p Hypotension : normotensive now, continue BP meds. and monitor #hypokalemia: normal now, repleted. # R flank contact dermatitis . cont HC #fungal infection on genital area: nystatin and zinc oxide # H/o recent NSTEMI: cont asa. hold BB DVT px: heparin sq
[2019-07-28] MEDS: CHLORHEXIDINE GLUCONATE 4% CLEANSER FOR DECOLONIZATION TP SCH (22:20)
[2019-07-29] MEDS: ALBUTEROL SO4 2.5/IPRATROPIUM 0.5 INH SOL 3 ML VIAL.NEB. NEB SCH ×6 (00:07→20:06)
[2019-07-29] MEDS ORDERED: DEXTROSE 5%-WATER - 50 ML IVPB ONE ×2 (00:28→11:15)
[2019-07-29] MEDS ORDERED: PIPERACILLIN/TAZOBACTAM 3.375 GM VIAL IVPB ONE ×2 (00:28→11:15)
[2019-07-29] MEDS: PIPERACILLIN/TAZOB 3.375 GM 3.375 GM in DEXTROSE 5%-WATER - 50 ML IVPB SCH ×2 (02:03→11:20)
[2019-07-29] MEDS: HEPARIN NA (PORCINE) 5,000 UNITS/ML 1ML VIAL SQ SCH ×3 (06:02→21:20)
[2019-07-29 07:46] LABS: ALBUMIN 3.1 g/dl (3.4-5.0); BILIRUBIN,TOTAL 0.8 mg/dL (0.2-1); BLOOD UREA NITROGEN 14.2 mg/dL (7-18); CALCIUM 9.1 mg/dL (8.5-10.1); CREATININE 0.3 mg/dL (0.55-1.3); POTASSIUM 3.8 mmol/L (3.5-5.1)
--- NOTE | 2019-07-29 09:55 | PN ---
Progress Note, Physician History of Present Illness: Dyspnea and O2 requirement continues to improve with diuresis. - Current Medication List Current Medications: Active Medications Albuterol Sulfate (Ventolin 0.083% Nebulizer Soln -) 1 amp NEB Q4H PRN PRN Reason: SHORT OF BREATH/WHEEZING Albuterol/Ipratropium (Duoneb -) 1 amp NEB RQ4H [facility] Last Admin: 07/29/19 07:25 Dose: 1 amp Aspirin (Ecotrin -) 81 mg PO DAILY [facility] Chlorhexidine Gluconate (Hibiclens For Decolonization -) 1 applic TP HS [facility] Last Admin: 07/28/19 22:20 Dose: Not Given Furosemide (Lasix -) 20 mg PO DAILY [facility] Heparin Sodium (Porcine) (Heparin -) 5,000 unit SQ TID [facility] Last Admin: 07/29/19 06:02 Dose: 5,000 unit Hydrocortisone (Hytone 1% Cream -) 1 applic TP BID [facility] Last Admin: 07/28/19 22:40 Dose: 1 applic Fentanyl 500 mcg/ Dextrose 100 mls @ 5 mls/hr IVPB TITR [facility]; Protocol Piperacillin Sod/Tazobactam (Sod 3.375 gm/ Dextrose) 50 mls @ 100 mls/hr IVPB Q8H-IV [facility]; Protocol Last Admin: 07/29/19 02:03 Dose: 100 mls/hr Metoprolol Tartrate (Lopressor -) 25 mg PO BID [facility] Last Admin: 07/28/19 22:24 Dose: 25 mg Multi-Ingredient Ointment (Zinc Oxide) 1 applic TP DAILY [facility] Mupirocin (Bactroban Ointment (For Decolonization) -) 1 applic NS BID [facility] Stop: 07/30/19 09:59 Last Admin: 07/28/19 22:20 Dose: Not Given Nystatin (Mycostatin Cream -) 1 applic TP BID [facility] Last Admin: 07/28/19 22:41 Dose: 1 applic Sertraline HCl (Zoloft -) 50 mg PO DAILY [facility] Valsartan (Diovan -) 80 mg PO DAILY [facility] - Objective Vital Signs: Vital Signs Temperature 97.7 F 07/29/19 06:00 Pulse Rate 70 07/29/19 09:39 Respiratory Rate 18 07/29/19 09:39 Blood Pressure 146/82 07/29/19 09:39 O2 Sat by Pulse Oximetry (%) 98 07/29/19 09:00 Constitutional: Yes: No Distress, Calm, Thin Neck: Yes: Supple Cardiovascular: Yes: Regular Rate and Rhythm Respiratory: Yes: Regular, Diminished, On Nasal O2 Gastrointestinal: Yes: Normal Bowel Sounds, Soft Genitourinary: Yes: Mills Present Edema: No Labs: CBC, BMP 07/28/19 05:02 07/29/19 05:31 INR, PTT INR 1.16 (0.83-1.09) H 07/25/19 01:00 - ....Imaging EKG: Report Reviewed (Tele: PSVT likely PAT with RVR->SR) Problem List - Problems (1) Acute respiratory failure with hypoxia and hypercarbia Code(s): J96.01 - ACUTE RESPIRATORY FAILURE WITH HYPOXIA; J96.02 - ACUTE RESPIRATORY FAILURE WITH HYPERCAPNIA (2) Acute diastolic heart failure Code(s): I50.31 - ACUTE DIASTOLIC (CONGESTIVE) HEART FAILURE (3) Iatrogenic pneumothorax Code(s): J95.811 - POSTPROCEDURAL PNEUMOTHORAX (4) Coronary artery disease Code(s): I25.10 - ATHSCL HEART DISEASE OF [place] CORONARY ARTERY W/O ANG PCTRS Qualifiers: Coronary Disease-Associated Artery/Lesion type: [place] artery [place] vs. transplanted heart: [place] heart Associated angina: without angina Qualified Code(s): I25.10 - Atherosclerotic heart disease of [place] coronary artery without angina pectoris (5) Paroxysmal atrial tachycardia Code(s): I47.1 - SUPRAVENTRICULAR TACHYCARDIA Assessment/Plan 07/12/2019 echo: Normal biventrucular size and fxn, mod MR, AR 1. Acute Hypoxic and Hypercapneic Respiratory Failure resolving 2. Acute on chronic diastolic heart failure resolving 3. R/o aspiration pneumonia 4. Coronary artery disease with h/o demand ischemic injury angina pectoris 5. Hypertensive cardiovascular disease, hypotension related to the above-noted sepsis syndrome 6. History of non-sustained ventricular tachycardia 7. Right common carotid stenosis, moderate in severity 8. H/o iatrogenic pneumothorax post right chest tube insertion/complication of subclavian line insertion 9. Chronic Subdural Hematoma 10. PSVT, PAT->NSR 11. Pre-renal azotemia resolved PLAN: 1. Oral diuresis as needed with monitor diuretic response, renal fxn and electrolytes 2. Complete empiric antibiotic course per C&S 3. Continue ASA 81 qd, metoprolol 25 bid, Diovan 80 qd as hemodynamics permit 4. Wean FIO2 to maintain saO2, BD as needed 5. PT as tolerated, d/c marilee
[2019-07-29] MEDS ORDERED: VALSARTAN 40 MG TABLET (FP) PO SCH (10:00)
[2019-07-29] MEDS ORDERED: FUROSEMIDE 20 MG TABLET (FP) PO SCH (10:00)
--- NOTE | 2019-07-29 10:45 | PN ---
Progress Note, Physician History of Present Illness: pulmonary awake ,alert,comfortable breathing better ,o2 sat 93% on ra - Current Medication List Current Medications: Active Medications Albuterol Sulfate (Ventolin 0.083% Nebulizer Soln -) 1 amp NEB Q4H PRN PRN Reason: SHORT OF BREATH/WHEEZING Albuterol/Ipratropium (Duoneb -) 1 amp NEB RQ4H [facility] Last Admin: 07/29/19 07:25 Dose: 1 amp Aspirin (Ecotrin -) 81 mg PO DAILY [facility] Chlorhexidine Gluconate (Hibiclens For Decolonization -) 1 applic TP HS [facility] Last Admin: 07/28/19 22:20 Dose: Not Given Furosemide (Lasix -) 20 mg PO DAILY [facility] Heparin Sodium (Porcine) (Heparin -) 5,000 unit SQ TID [facility] Last Admin: 07/29/19 06:02 Dose: 5,000 unit Hydrocortisone (Hytone 1% Cream -) 1 applic TP BID [facility] Last Admin: 07/28/19 22:40 Dose: 1 applic Fentanyl 500 mcg/ Dextrose 100 mls @ 5 mls/hr IVPB TITR [facility]; Protocol Piperacillin Sod/Tazobactam (Sod 3.375 gm/ Dextrose) 50 mls @ 100 mls/hr IVPB Q8H-IV [facility]; Protocol Last Admin: 07/29/19 02:03 Dose: 100 mls/hr Metoprolol Tartrate (Lopressor -) 25 mg PO BID [facility] Last Admin: 07/28/19 22:24 Dose: 25 mg Multi-Ingredient Ointment (Zinc Oxide) 1 applic TP DAILY [facility] Mupirocin (Bactroban Ointment (For Decolonization) -) 1 applic NS BID [facility] Stop: 07/30/19 09:59 Last Admin: 07/28/19 22:20 Dose: Not Given Nystatin (Mycostatin Cream -) 1 applic TP BID [facility] Last Admin: 07/28/19 22:41 Dose: 1 applic Sertraline HCl (Zoloft -) 50 mg PO DAILY [facility] Valsartan (Diovan -) 80 mg PO DAILY [facility] - Objective Vital Signs: Vital Signs Temperature 97.7 F 07/29/19 06:00 Pulse Rate 70 07/29/19 09:39 Respiratory Rate 18 07/29/19 09:39 Blood Pressure 146/82 07/29/19 09:39 O2 Sat by Pulse Oximetry (%) 98 07/29/19 09:00 Constitutional: Yes: Calm, Thin HENT: Yes: WNL Neck: Yes: WNL Cardiovascular: Yes: Regular Rate and Rhythm, S1, S2, S3 Respiratory: Yes: Rales (bibasailar rales) Gastrointestinal: Yes: Normal Bowel Sounds, Soft Extremities: Yes: WNL Edema: No Labs: CBC, BMP 07/29/19 05:31 Assessment/Plan Problem List - Problems (1) Hypercarbia Code(s): R06.89 - OTHER ABNORMALITIES OF BREATHING (2) Acute respiratory failure with hypoxia and hypercarbia Code(s): J96.01 - ACUTE RESPIRATORY FAILURE WITH HYPOXIA; J96.02 - ACUTE RESPIRATORY FAILURE WITH HYPERCAPNIA (3) Acute diastolic heart failure Code(s): I50.31 - ACUTE DIASTOLIC (CONGESTIVE) HEART FAILURE (4) Respiratory failure Code(s): J96.90 - RESPIRATORY FAILURE, UNSP, UNSP W HYPOXIA OR HYPERCAPNIA Qualifiers: Chronicity: acute Respiratory failure complication: hypoxia and hypercapnia Qualified Code(s): J96.01 - Acute respiratory failure with hypoxia ; J96.02 - Acute respiratory failure with hypercapnia Assessment/Plan HFpEF HTN Depression Right CCA stenosis Chronic Right subdural hematoma History of Right Iatrogenic PTX on last admission nasal o2 ABX per ID lasix Daily weights Strict I & O BD TX VTE prophylaxis DR CORRAL
[2019-07-29] MEDS: MUPIROCIN 2% TOPICAL OINTMENT FOR DECOLONIZATION NS SCH ×2 (11:18→21:19)
[2019-07-29] MEDS: VALSARTAN 40 MG TABLET (FP) PO SCH (11:18)
[2019-07-29] MEDS: ZINC OXIDE 20% TOPICAL OINTMENT 30 GM TUBE TP SCH (11:19)
[2019-07-29] MEDS: HYDROCORTISONE 1% TOPICAL CREAM 30 GM TUBE TP SCH ×2 (11:19→21:24)
[2019-07-29] MEDS: NYSTATIN 100,000 UNIT/GM TOPICAL CREAM 15 GM TUBE TP SCH ×2 (11:19→21:23)
[2019-07-29] MEDS: ASPIRIN COATED 81 MG TABLET.EC PO SCH (11:19)
[2019-07-29] MEDS: SERTRALINE HCL 50 MG TABLET (FP) PO SCH (11:19)
[2019-07-29] MEDS: METOPROLOL TARTRATE 25 MG TABLET (FP) PO SCH ×2 (11:19→21:20)
--- NOTE | 2019-07-29 12:43 | PN ---
Progress Note, STE[employer]ER [employer]ER - Note Progress Note: Selected Entries 07/28/19 07/28/19 07/28/19 00:00 04:00 10:00 Breakfast 25% Lunch Supper Temperature 97.8 F 97.8 F 07/28/19 07/28/19 07/28/19 12:00 14:00 18:00 Breakfast Lunch 0 Supper 25% Temperature 98 F 98.6 F 97.7 F 07/28/19 07/29/19 07/29/19 21:00 01:43 06:00 Breakfast Lunch Supper Temperature 98.7 F 97.8 F 97.7 F 07/29/19 11:13 Breakfast 50% Lunch Supper Temperature Laboratory Tests 07/27/19 07/28/19 06:15 05:02 WBC 12.1 H 9.3 Tolerated cookies for me and nursing. Had 75% of breakfast. Upgraded to soft,rg diet. Monitor tolerance Supplements b/n meals
--- NOTE | 2019-07-29 15:14 | PN ---
Teaching Attending Note Name of Resident: Enrrique Lin ATTENDING PHYSICIAN STATEMENT I saw and evaluated the patient. I reviewed the resident's note and discussed the case with the resident. I agree with the resident's findings and plan as documented. SUBJECTIVE: Patient is comfortable with no acute distress, no fever or chills, no shorteness of breath, 93% o2 on room air. OBJECTIVE: Vital Signs Temperature 97.7 F 07/29/19 06:00 Pulse Rate 82 07/29/19 14:05 Respiratory Rate 18 07/29/19 09:39 Blood Pressure 146/82 07/29/19 09:39 O2 Sat by Pulse Oximetry (%) 94 L 07/29/19 14:05 GENERAL: The patient is awake, alert, and oriented x3, in NAD. HEAD: Normal with no signs of trauma. EYES: PERRL, extraocular movements intact, sclera anicteric, conjunctiva clear. ENT: Ears normal, on NC now, clear without exudates, moist mucous membranes. NECK: Trachea midline, full range of motion, supple. LUNGS: Breath sounds equal, decreased BS BL , no accessory muscle use. HEART: Regular rate and rhythm, S1, S2 without murmur, rub or gallop. ABDOMEN: Soft, NT, ND, normoactive bowel sounds, no guarding, no rebound, no hepatosplenomegaly, no masses. EXTREMITIES: 2+ pulses, warm, well-perfused, no edema. NEUROLOGICAL: Cranial nerves II through XII grossly intact. Normal speech, gait not observed. PSYCH: Normal mood, normal affect. SKIN: Warm, dry, normal turgor, no rashes or lesions noted CBCD WBC 9.3 K/mm3 (4.0-10.0) 07/28/19 05:02 RBC 3.82 M/mm3 (3.60-5.2) 07/28/19 05:02 Hgb 11.4 GM/dL (10.7-15.3) 07/28/19 05:02 Hct 35.1 % (32.4-45.2) 07/28/19 05:02 MCV 91.9 fl (80-96) 07/28/19 05:02 MCHC 32.4 g/dl (32.0-36.0) 07/28/19 05:02 RDW 14.1 % (11.6-15.6) 07/28/19 05:02 Plt Count 231 K/MM3 (134-434) D 07/28/19 05:02 MPV 10.0 fl (7.5-11.1) 07/28/19 05:02 CMP Sodium 142 mmol/L (136-145) 07/29/19 05:31 Potassium 3.8 mmol/L (3.5-5.1) 07/29/19 05:31 Chloride 102 mmol/L (98-107) 07/29/19 05:31 Carbon Dioxide 35 mmol/L (21-32) H 07/29/19 05:31 Anion Gap 5 MMOL/L (8-16) L 07/29/19 05:31 BUN 14.2 mg/dL (7-18) 07/29/19 05:31 Creatinine 0.3 mg/dL (0.55-1.3) L 07/29/19 05:31 Random Glucose 92 mg/dL (74-106) 07/29/19 05:31 Calcium 9.1 mg/dL (8.5-10.1) 07/29/19 05:31 Total Bilirubin 0.8 mg/dL (0.2-1) 07/29/19 05:31 AST 15 U/L (15-37) 07/29/19 05:31 ALT 31 U/L (13-61) 07/29/19 05:31 Alkaline Phosphatase 80 U/L (45-117) 07/29/19 05:31 Total Protein 6.0 g/dl (6.4-8.2) L 07/29/19 05:31 Albumin 3.1 g/dl (3.4-5.0) L 07/29/19 05:31 CARDIAC ENZYMES Troponin I 0.04 ng/ml (0.00-0.05) 07/25/19 13:40 Current Medications Generic Name Dose Route Start Last Admin Trade Name Freq PRN Reason Stop Dose Admin Albuterol Sulfate 1 amp 07/28/19 13:21 Ventolin 0.083% Nebulizer Soln - NEB Q4H PRN SHORT OF BREATH/WHEEZING Albuterol/Ipratropium 1 amp 07/28/19 16:00 07/29/19 11:35 Duoneb - NEB Not Given RQ4H [facility] Aspirin 81 mg 07/29/19 10:00 07/29/19 11:19 Ecotrin - PO 81 mg DAILY [facility] Administration Chlorhexidine Gluconate 1 applic 07/28/19 22:00 07/28/19 22:20 Hibiclens For Decolonization - TP Not Given HS [facility] Furosemide 20 mg 07/29/19 10:00 07/29/19 11:18 Lasix - PO 20 mg DAILY [facility] Administration Heparin Sodium (Porcine) 5,000 unit 07/28/19 14:00 07/29/19 14:52 Heparin - SQ 5,000 unit TID [facility] Administration Hydrocortisone 1 applic 07/28/19 22:00 07/29/19 11:19 Hytone 1% Cream - TP 1 applic BID [facility] Administration Fentanyl 500 mcg/ Dextrose 100 mls @ 5 mls/hr 07/28/19 13:21 IVPB TITR [facility] Protocol 25 MCG/HR Piperacillin Sod/Tazobactam 50 mls @ 100 mls/hr 07/28/19 18:00 07/29/19 11:20 Sod 3.375 gm/ Dextrose IVPB 100 mls/hr Q8H-IV [facility] Administration Protocol Metoprolol Tartrate 25 mg 07/28/19 22:00 07/29/19 11:19 Lopressor - PO 25 mg BID [facility] Administration Multi-Ingredient Ointment 1 applic 07/29/19 10:00 07/29/19 11:19 Zinc Oxide TP 1 applic DAILY [facility] Administration Mupirocin 1 applic 07/28/19 22:00 07/29/19 11:18 Bactroban Ointment (For Decolonization) - NS 07/30/19 09:59 Not Given BID [facility] Nystatin 1 applic 07/28/19 22:00 07/29/19 11:19 Mycostatin Cream - TP 1 applic BID [facility] Administration Sertraline HCl 50 mg 07/29/19 10:00 07/29/19 11:19 Zoloft - PO 50 mg DAILY [facility] Administration Valsartan 80 mg 07/29/19 10:00 07/29/19 11:18 Diovan - PO 80 mg DAILY [facility] Administration Home Medications Medication Instructions Recorded Sertraline HCl 50 mg PO DAILY 07/07/19 Calcium 500Mg/Vit-D 200 Units 1 tab PO BID 30 Days #60 tab 07/08/19 [Os-Silvio 500+D -] Albuterol Sulfate Inhaler - 1 puff IH Q4H PRN #1 inhaler 07/23/19 [Ventolin HFA Inhaler -] Aspirin 81 mg PO DAILY #30 tab.chew 07/23/19 Furosemide 20 mg PO DAILY 30 Days #30 tablet 07/23/19 Hydrocortisone 1% Ointment [Hytone 1 applic TP DAILY #1 tube 07/23/19 1% Ointment -] LORazepam [Ativan] 0.5 mg PO BID PRN tablet MDD 1.5 07/23/19 Metoprolol Tartrate [Lopressor -] 50 mg PO BID 30 Days #60 tablet 07/23/19 Petrolatum - White [Vaseline -] 1 applic TP DAILY applic 07/23/19 Valsartan [Diovan] 40 mg PO DAILY 30 Days #30 tablet 07/23/19 Zinc Oxide 1 applic TP BID #1 tube 07/23/19 Zinc Oxide 1 applic TP DAILY #1 oint..gm. 07/23/19 Microbiology 07/25/19 04:13 Blood - Peripheral Venous Blood Culture - Preliminary NO GROWTH OBTAINED AFTER 96 HOURS, INCUBATION TO CONTINUE FOR 1 DAYS. 07/25/19 01:15 Blood - Peripheral Venous Blood Culture - Preliminary NO GROWTH OBTAINED AFTER 96 HOURS, INCUBATION TO CONTINUE FOR 1 DAYS. 07/25/19 06:00 Sputum - Endotrachea Suction/Ventilator Gram Stain - Final 07/25/19 06:00 Sputum - Endotrachea Suction/Ventilator Sputum Culture - Final NORMAL RESPIRATORY [place] 07/25/19 06:00 Urine - Urine Clean Catch Urine Culture - Final NO GROWTH OBTAINED 07/25/19 18:40 Urine - Urine [place] Legionella Antigen - Final 07/25/19 18:40 Urine - Urine [place] Streptococcus pneumoniae Antigen (M - Final ASSESSMENT AND PLAN: Patient is an 88yof with PMhx of diastolic dysfunction , HTN, depression, chronic R subdural hematoma ,ETOH abuse, R carotid artery stenosis, PNA, UTI, NSVT, with a recent admission for Acute resp failure due to PNA, Acute D CHF, NSTEMI and developed R iatrogenic pneumothorax, who was discharged home and returned 2 days later due to SOB and tachypnia. SHe was found to have acute hypoxic , hypercapnic resp failure and was intubated. #Acute hypoxic, hypercapnic resp failure. s/p extubation , s/p high flow oxygen , on room air saturating 93%, as per ID to continue with Augmentin 500mg x 3 more days, off IV zosyn today as per ID. no growth so far, cx is negative # s/p Hypotension : normotensive now, continue BP meds. #hypokalemia: normal now, repleted. # R flank contact dermatitis . cont HC #fungal infection on genital area: nystatin and zinc oxide # H/o recent NSTEMI: cont asa. hold BB DVT px: heparin sq dc home vs rehab.
--- NOTE | 2019-07-29 15:53 | PN ---
Progress Note, Physician History of Present Illness: AWAKE IN BED NO COMPLAINTS BREATHING NON-LABORED AFEBRILE WBC WNL BC (-) - Current Medication List Current Medications: Active Medications Albuterol Sulfate (Ventolin 0.083% Nebulizer Soln -) 1 amp NEB Q4H PRN PRN Reason: SHORT OF BREATH/WHEEZING Albuterol/Ipratropium (Duoneb -) 1 amp NEB RQ4H [facility] Last Admin: 07/29/19 11:35 Dose: Not Given Aspirin (Ecotrin -) 81 mg PO DAILY [facility] Last Admin: 07/29/19 11:19 Dose: 81 mg Chlorhexidine Gluconate (Hibiclens For Decolonization -) 1 applic TP HS [facility] Last Admin: 07/28/19 22:20 Dose: Not Given Furosemide (Lasix -) 20 mg PO DAILY [facility] Last Admin: 07/29/19 11:18 Dose: 20 mg Heparin Sodium (Porcine) (Heparin -) 5,000 unit SQ TID [facility] Last Admin: 07/29/19 14:52 Dose: 5,000 unit Hydrocortisone (Hytone 1% Cream -) 1 applic TP BID [facility] Last Admin: 07/29/19 11:19 Dose: 1 applic Fentanyl 500 mcg/ Dextrose 100 mls @ 5 mls/hr IVPB TITR [facility]; Protocol Piperacillin Sod/Tazobactam (Sod 3.375 gm/ Dextrose) 50 mls @ 100 mls/hr IVPB Q8H-IV [facility]; Protocol Last Admin: 07/29/19 11:20 Dose: 100 mls/hr Metoprolol Tartrate (Lopressor -) 25 mg PO BID [facility] Last Admin: 07/29/19 11:19 Dose: 25 mg Multi-Ingredient Ointment (Zinc Oxide) 1 applic TP DAILY [facility] Last Admin: 07/29/19 11:19 Dose: 1 applic Mupirocin (Bactroban Ointment (For Decolonization) -) 1 applic NS BID [facility] Stop: 07/30/19 09:59 Last Admin: 07/29/19 11:18 Dose: Not Given Nystatin (Mycostatin Cream -) 1 applic TP BID [facility] Last Admin: 07/29/19 11:19 Dose: 1 applic Sertraline HCl (Zoloft -) 50 mg PO DAILY [facility] Last Admin: 07/29/19 11:19 Dose: 50 mg Valsartan (Diovan -) 80 mg PO DAILY [facility] Last Admin: 07/29/19 11:18 Dose: 80 mg - Objective Vital Signs: Vital Signs Temperature 97.7 F 07/29/19 06:00 Pulse Rate 82 07/29/19 14:05 Respiratory Rate 18 07/29/19 09:39 Blood Pressure 146/82 07/29/19 09:39 O2 Sat by Pulse Oximetry (%) 94 L 07/29/19 14:05 Constitutional: Yes: No Distress Eyes: Yes: Conjunctiva Clear Cardiovascular: Yes: Regular Rate and Rhythm, S1, S2 Respiratory: Yes: Diminished Gastrointestinal: Yes: Normal Bowel Sounds, Soft. No: Tenderness Edema: No Labs: CBC, BMP 07/28/19 05:02 07/29/19 05:31 INR, PTT INR 1.16 (0.83-1.09) H 07/25/19 01:00 Assessment/Plan RESP FAILURE R/O PNEUMONIA LEUKOCYTOSIS LACTIC ACIDOSIS CLINICALLY IMPROVED SUBSTITUTE AUGMENTIN 500MG PO BID X 3D
--- NOTE | 2019-07-29 15:56 | PN ---
Physical Exam: SUBJECTIVE: Patient seen and examined at bedside in telemetry bed. Overnight there were 2 SVTs on the monitor for apx 10 seconds but resolved on own; pt's baseline. She offers no complaints this morning. Discussed plan to prevent re- admission with patient and son. She is satisfied with her progress so far. OBJECTIVE: Vital Signs Period Temp Pulse Resp BP Sys/Da Silva Pulse Ox Last 24 Hr 97.7 F-98.7 F 65-82 18-20 138-150/41-82 94-100 GENERAL: AOx3, in good spirits, on 2L NC HEAD: NC EYES: NELSON, EOMI, conjunctiva clear. ENT: Ears normal, nares patent, oropharynx clear without exudates. Moist mucous membranes. NECK: No lymphadenopathy, some JVD LUNGS: CTA LEFT > RIGHT. No adventitous sounds. No accessory muscle use. HEART: RRR s1 s2. 2/6 systolic murmur radiating to back. ABDOMEN: Soft, BS present in all 4 quadrants, non-distended, no JVD, MUSCULOSKELETAL: Kyphosis. Left hand contracted (chronic). No CVA tenderness. UPPER EXTREMITIES: 2+ pulses, warm, well-perfused. No cyanosis. No clubbing. No peripheral edema. LOWER EXTREMITIES: 2+ pulses, warm, well-perfused. No calf tenderness. No peripheral edema. NEUROLOGICAL: No focal deficits. Cranial nerves II-XII intact. Normal speech. PSYCHIATRIC: Cooperative. Good eye contact. Appropriate mood and affect. SKIN: Resolving RUE ecchymosis extending down flank and spared in certain areas . Echymosis on flexor surface of RUE. Warm, dry, normal turgor, normal capillary refill. Ducubitus ulcer on sacrum. Laboratory Results - last 24 hr 07/29/19 05:31 Sodium 142 Potassium 3.8 Chloride 102 Carbon Dioxide 35 H Anion Gap 5 L BUN 14.2 Creatinine 0.3 L Est GFR (CKD-EPI)AfAm 120.16 Est GFR (CKD-EPI)NonAf 103.67 Random Glucose 92 Calcium 9.1 Total Bilirubin 0.8 AST 15 ALT 31 Alkaline Phosphatase 80 Total Protein 6.0 L Albumin 3.1 L Active Medications Albuterol Sulfate (Ventolin 0.083% Nebulizer Soln -) 1 amp NEB Q4H PRN PRN Reason: SHORT OF BREATH/WHEEZING Albuterol/Ipratropium (Duoneb -) 1 amp NEB RQ4H [facility] Last Admin: 07/29/19 11:35 Dose: Not Given Amoxicillin/Clavulanate Potassium (Augmentin - 500mg Tablet) 1 tab PO BID@0800, 1730 [facility] Aspirin (Ecotrin -) 81 mg PO DAILY [facility] Last Admin: 07/29/19 11:19 Dose: 81 mg Chlorhexidine Gluconate (Hibiclens For Decolonization -) 1 applic TP HS [facility] Last Admin: 07/28/19 22:20 Dose: Not Given Heparin Sodium (Porcine) (Heparin -) 5,000 unit SQ TID [facility] Last Admin: 07/29/19 14:52 Dose: 5,000 unit Hydrocortisone (Hytone 1% Cream -) 1 applic TP BID [facility] Last Admin: 07/29/19 11:19 Dose: 1 applic Fentanyl 500 mcg/ Dextrose 100 mls @ 5 mls/hr IVPB TITR [facility]; Protocol Metoprolol Tartrate (Lopressor -) 25 mg PO BID [facility] Last Admin: 07/29/19 11:19 Dose: 25 mg Multi-Ingredient Ointment (Zinc Oxide) 1 applic TP DAILY [facility] Last Admin: 07/29/19 11:19 Dose: 1 applic Mupirocin (Bactroban Ointment (For Decolonization) -) 1 applic NS BID [facility] Stop: 07/30/19 09:59 Last Admin: 07/29/19 11:18 Dose: Not Given Nystatin (Mycostatin Cream -) 1 applic TP BID [facility] Last Admin: 07/29/19 11:19 Dose: 1 applic Sertraline HCl (Zoloft -) 50 mg PO DAILY [facility] Last Admin: 07/29/19 11:19 Dose: 50 mg Spironolactone (Aldactone -) 25 mg PO DAILY [facility] Valsartan (Diovan -) 80 mg PO DAILY [facility] Last Admin: 07/29/19 11:18 Dose: 80 mg ASSESSMENT/PLAN: 88 y/o female PMH HTN, HFpEF, depression, chronic RIGHT subdural hematoma, ETOH abuse, RIGHT carotid artery stenosis, and recent admission for acute hypoxic hypercapnic respiratory failure. Pt brought to hospital after [employer] found pt to be tachypnic and demonstrating increased work of breathing. She was placed on non-rebreather and oxygen saturation remained low. She was intubated and brought to the ICU. She is now s/p extubation, saturating well on telemetry unit. GOC per family: full code, amenable to SNF once on new diuretic for 24 hours (lasix -> spironolactone) # Acute hypoxic, hypercapnic respiratory failure: HF vs aspiration PNA - Now monitored in telemetry, SVT overnight resolved on own. - Off levophed - Per cardio: switch lasix to spironolactone 25 PO QD - weaker diuretic (to avoid contraction alkalosis) and better support for diastolic dysfunction. - Monitor i/o + daily weights - Per ID: AUGMENTIN 500MG PO BID X 3D - Diastolic left ventricular dysfunction with clinical class 0-I [place] [employer] classification left ventricular failure/elevated B-type natriuretic peptide- most likely related to sepsis syndrome. Moderate pulmonary HTN. - Maintain MAP > 65 - Echo from last admission: mitral valve regurg, aortic regurg. Echo done : EF 55-60%, mild MR, pulm HTN, & AR - Renovascular US r/o renal artery stenosis to help elucidate acute decompensation # RIGHT sided Contact dermatitis, stage 2 sacral pressure ulcer - cortisone 1% BID to area - zinc oxide for decubital ulcer - vaseline for lips # HTN CARDIOLOGY REC - ASA 81 mg qd, metoprolol 25 mg bid, Diovan 40 mg qd as hemodynamics permit - spironolactone 25 PO QD # Leukocytosis, resolved - WBC 9.3 - Left shift # F/E/N - NO FLUIDS, start spironolactone tomorrow - Cont. to monitor - Per S/S: Upgraded to soft,rg diet. # DVT prophylaxis - Heparin SQ # Disposition - Full code - Transfer to telemetry today - GOC per family: full code, amenable to SNF once on new diuretic for 24 hours Enrrique Lin MD Visit type - Emergency Visit Emergency Visit: No - New Patient This patient is new to me today: No - Critical Care Critical Care patient: No ATTENDING PHYSICIAN STATEMENT I saw and evaluated the patient. I reviewed the resident's note and discussed the case with the resident. I agree with the resident's findings and plan as documented. SUBJECTIVE: OBJECTIVE: ASSESSMENT AND PLAN:
[2019-07-29] MEDS: AMOX TR/POT CLAV 500MG/125MG TABLETS (FP) PO SCH (17:19)
[2019-07-29] MEDS: CHLORHEXIDINE GLUCONATE 4% CLEANSER FOR DECOLONIZATION TP SCH (21:19)
[2019-07-30] MEDS: ALBUTEROL SO4 2.5/IPRATROPIUM 0.5 INH SOL 3 ML VIAL.NEB. NEB SCH ×6 (00:42→20:55)
[2019-07-30] MEDS ORDERED: ACETAMINOPHEN 325 MG TABLET (FP) PO PRN (03:33)
[2019-07-30] MEDS: HEPARIN NA (PORCINE) 5,000 UNITS/ML 1ML VIAL SQ SCH ×3 (06:07→22:04)
[2019-07-30 07:41] LABS: ALBUMIN 3.1 g/dl (3.4-5.0); BILIRUBIN,TOTAL 0.8 mg/dL (0.2-1); BLOOD UREA NITROGEN 15.7 mg/dL (7-18); CALCIUM 9.4 mg/dL (8.5-10.1); CREATININE 0.4 mg/dL (0.55-1.3); TOT PROT 6.1 g/dl (6.4-8.2)
[2019-07-30] MEDS: AMOX TR/POT CLAV 500MG/125MG TABLETS (FP) PO SCH ×2 (07:41→17:37)
--- NOTE | 2019-07-30 08:20 | PN ---
Progress Note (short form) - Note Progress Note: Patient is comfortable with no acute distress, no fever or chills, no shorteness of breath, 93% o2 on room air. OBJECTIVE: Vital Signs Temperature 97.6 F 07/30/19 06:00 Pulse Rate 69 07/30/19 06:00 Respiratory Rate 19 07/30/19 06:00 Blood Pressure 145/46 L 07/30/19 06:00 O2 Sat by Pulse Oximetry (%) 97 07/29/19 21:00 GENERAL: The patient is awake, alert, and oriented x3, in NAD. on NC 2l HEAD: Normal with no signs of trauma. EYES: PERRL, extraocular movements intact, sclera anicteric, conjunctiva clear. ENT: Ears normal, on NC now, clear without exudates, moist mucous membranes. NECK: Trachea midline, full range of motion, supple. LUNGS: Breath sounds equal, decreased BS BL , no accessory muscle use. HEART: Regular rate and rhythm, S1, S2 without murmur, rub or gallop. ABDOMEN: Soft, NT, ND, normoactive bowel sounds, no guarding, no rebound, no hepatosplenomegaly, no masses. EXTREMITIES: 2+ pulses, warm, well-perfused, no edema. NEUROLOGICAL: Cranial nerves II through XII grossly intact. Normal speech, gait not observed. PSYCH: Normal mood, normal affect. SKIN: Warm, dry, normal turgor, no rashes or lesions noted CBCD WBC 9.3 K/mm3 (4.0-10.0) 07/28/19 05:02 RBC 3.82 M/mm3 (3.60-5.2) 07/28/19 05:02 Hgb 11.4 GM/dL (10.7-15.3) 07/28/19 05:02 Hct 35.1 % (32.4-45.2) 07/28/19 05:02 MCV 91.9 fl (80-96) 07/28/19 05:02 MCHC 32.4 g/dl (32.0-36.0) 07/28/19 05:02 RDW 14.1 % (11.6-15.6) 07/28/19 05:02 Plt Count 231 K/MM3 (134-434) D 07/28/19 05:02 MPV 10.0 fl (7.5-11.1) 07/28/19 05:02 CMP Sodium 141 mmol/L (136-145) 07/30/19 06:05 Potassium 4.0 mmol/L (3.5-5.1) 07/30/19 06:05 Chloride 104 mmol/L (98-107) 07/30/19 06:05 Carbon Dioxide 33 mmol/L (21-32) H 07/30/19 06:05 Anion Gap 5 MMOL/L (8-16) L 07/30/19 06:05 BUN 15.7 mg/dL (7-18) 07/30/19 06:05 Creatinine 0.4 mg/dL (0.55-1.3) L 07/30/19 06:05 Random Glucose 90 mg/dL (74-106) 07/30/19 06:05 Calcium 9.4 mg/dL (8.5-10.1) 07/30/19 06:05 Total Bilirubin 0.8 mg/dL (0.2-1) 07/30/19 06:05 AST 21 U/L (15-37) 07/30/19 06:05 ALT 33 U/L (13-61) 07/30/19 06:05 Alkaline Phosphatase 84 U/L (45-117) 07/30/19 06:05 Total Protein 6.1 g/dl (6.4-8.2) L 07/30/19 06:05 Albumin 3.1 g/dl (3.4-5.0) L 07/30/19 06:05 CARDIAC ENZYMES Troponin I 0.04 ng/ml (0.00-0.05) 07/25/19 13:40 Current Medications Generic Name Dose Route Start Last Admin Trade Name Freq PRN Reason Stop Dose Admin Acetaminophen 650 mg 07/30/19 03:33 07/30/19 03:45 Tylenol - PO 650 mg Q6H PRN Administration Fever Or Pain Albuterol Sulfate 1 amp 07/28/19 13:21 Ventolin 0.083% Nebulizer Soln - NEB Q4H PRN SHORT OF BREATH/WHEEZING Albuterol/Ipratropium 1 amp 07/28/19 16:00 07/30/19 07:58 Duoneb - NEB Not Given RQ4H [facility] Amoxicillin/Clavulanate Potassium 1 tab 07/29/19 17:30 07/30/19 07:41 Augmentin - 500mg Tablet PO 1 tab BID@0800,1730 [facility] Administration Aspirin 81 mg 07/29/19 10:00 07/29/19 11:19 Ecotrin - PO 81 mg DAILY [facility] Administration Chlorhexidine Gluconate 1 applic 07/28/19 22:00 07/29/19 21:19 Hibiclens For Decolonization - TP Not Given HS [facility] Heparin Sodium (Porcine) 5,000 unit 07/28/19 14:00 07/30/19 06:07 Heparin - SQ 5,000 unit TID [facility] Administration Hydrocortisone 1 applic 07/28/19 22:00 07/29/19 21:24 Hytone 1% Cream - TP 1 applic BID [facility] Administration Fentanyl 500 mcg/ Dextrose 100 mls @ 5 mls/hr 07/28/19 13:21 IVPB TITR [facility] Protocol 25 MCG/HR Metoprolol Tartrate 25 mg 07/28/19 22:00 07/29/19 21:20 Lopressor - PO 25 mg BID [facility] Administration Multi-Ingredient Ointment 1 applic 07/29/19 10:00 07/29/19 11:19 Zinc Oxide TP 1 applic DAILY [facility] Administration Mupirocin 1 applic 07/28/19 22:00 07/29/19 21:19 Bactroban Ointment (For Decolonization) - NS 07/30/19 09:59 Not Given BID [facility] Nystatin 1 applic 07/28/19 22:00 07/29/19 21:23 Mycostatin Cream - TP 1 applic BID [facility] Administration Sertraline HCl 50 mg 07/29/19 10:00 07/29/19 11:19 Zoloft - PO 50 mg DAILY [facility] Administration Spironolactone 25 mg 07/30/19 10:00 Aldactone - PO DAILY [facility] Valsartan 80 mg 07/29/19 10:00 07/29/19 11:18 Diovan - PO 80 mg DAILY [facility] Administration Home Medications Medication Instructions Recorded Sertraline HCl 50 mg PO DAILY 07/07/19 Calcium 500Mg/Vit-D 200 Units 1 tab PO BID 30 Days #60 tab 07/08/19 [Os-Silvio 500+D -] Albuterol Sulfate Inhaler - 1 puff IH Q4H PRN #1 inhaler 07/23/19 [Ventolin HFA Inhaler -] Aspirin 81 mg PO DAILY #30 tab.chew 07/23/19 Furosemide 20 mg PO DAILY 30 Days #30 tablet 07/23/19 Hydrocortisone 1% Ointment [Hytone 1 applic TP DAILY #1 tube 07/23/19 1% Ointment -] LORazepam [Ativan] 0.5 mg PO BID PRN tablet MDD 1.5 07/23/19 Metoprolol Tartrate [Lopressor -] 50 mg PO BID 30 Days #60 tablet 07/23/19 Petrolatum - White [Vaseline -] 1 applic TP DAILY applic 07/23/19 Valsartan [Diovan] 40 mg PO DAILY 30 Days #30 tablet 07/23/19 Zinc Oxide 1 applic TP BID #1 tube 07/23/19 Zinc Oxide 1 applic TP DAILY #1 oint..gm. 07/23/19 Microbiology 07/25/19 04:13 Blood - Peripheral Venous Blood Culture - Preliminary NO GROWTH OBTAINED AFTER 96 HOURS, INCUBATION TO CONTINUE FOR 1 DAYS. 07/25/19 01:15 Blood - Peripheral Venous Blood Culture - Preliminary NO GROWTH OBTAINED AFTER 96 HOURS, INCUBATION TO CONTINUE FOR 1 DAYS. 07/25/19 06:00 Sputum - Endotrachea Suction/Ventilator Gram Stain - Final 07/25/19 06:00 Sputum - Endotrachea Suction/Ventilator Sputum Culture - Final NORMAL RESPIRATORY [place] 07/25/19 06:00 Urine - Urine Clean Catch Urine Culture - Final NO GROWTH OBTAINED 07/25/19 18:40 Urine - Urine [place] Legionella Antigen - Final 07/25/19 18:40 Urine - Urine [place] Streptococcus pneumoniae Antigen (M - Final ASSESSMENT AND PLAN: Patient is an 88yof with PMhx of diastolic dysfunction , HTN, depression, chronic R subdural hematoma ,ETOH abuse, R carotid artery stenosis, PNA, UTI, NSVT, with a recent admission for Acute resp failure due to PNA, Acute D CHF, NSTEMI and developed R iatrogenic pneumothorax, who was discharged home and returned 2 days later due to SOB and tachypnia. SHe was found to have acute hypoxic , hypercapnic resp failure and was intubated. #Acute hypoxic, hypercapnic resp failure. s/p extubation , s/p high flow oxygen , on room air saturating 93%, as per ID to continue with Augmentin 500mg x 3 more days, s/p IV zosyn . no growth so far, cx is negative # s/p Hypotension : normotensive now, continue BP meds. #hypokalemia: normal now, repleted. # R flank contact dermatitis . cont HC #fungal infection on genital area: nystatin and zinc oxide # H/o recent NSTEMI: cont asa. hold BB DVT px: heparin sq dc home vs rehab. Visit type - Emergency Visit Emergency Visit: Yes ED Registration Date: 07/25/19 Care time: The patient presented to the Emergency Department on the above date and was hospitalized for further evaluation of their emergent condition. - New Patient This patient is new to me today: No - Critical Care Critical Care patient: No - Discharge Referral Referred to [facility] No
[2019-07-30] MEDS: NYSTATIN 100,000 UNIT/GM TOPICAL CREAM 15 GM TUBE TP SCH ×2 (09:43→22:05)
[2019-07-30] MEDS: VALSARTAN 40 MG TABLET (FP) PO SCH (09:43)
[2019-07-30] MEDS: SPIRONOLACTONE 25 MG TABLET (FP) PO SCH (09:43)
[2019-07-30] MEDS: ASPIRIN COATED 81 MG TABLET.EC PO SCH (09:43)
[2019-07-30] MEDS: SERTRALINE HCL 50 MG TABLET (FP) PO SCH (09:43)
[2019-07-30] MEDS: METOPROLOL TARTRATE 25 MG TABLET (FP) PO SCH ×2 (09:43→22:05)
[2019-07-30] MEDS: HYDROCORTISONE 1% TOPICAL CREAM 30 GM TUBE TP SCH ×2 (09:43→22:05)
[2019-07-30] MEDS: ZINC OXIDE 20% TOPICAL OINTMENT 30 GM TUBE TP SCH (09:44)
--- NOTE | 2019-07-30 11:35 | PN ---
Progress Note, Physician Chief Complaint: Events noted Not in distress History of Present Illness: Patient was seen and examined. Awake and alert. Chart was reviewed Denies chest pain. Dyspnea improving - Current Medication List Current Medications: Active Medications Acetaminophen (Tylenol -) 650 mg PO Q6H PRN PRN Reason: Fever Or Pain Last Admin: 07/30/19 03:45 Dose: 650 mg Albuterol Sulfate (Ventolin 0.083% Nebulizer Soln -) 1 amp NEB Q4H PRN PRN Reason: SHORT OF BREATH/WHEEZING Albuterol/Ipratropium (Duoneb -) 1 amp NEB RQ4H [facility] Last Admin: 07/30/19 07:58 Dose: Not Given Amoxicillin/Clavulanate Potassium (Augmentin - 500mg Tablet) 1 tab PO BID@0800, 1730 [facility] Last Admin: 07/30/19 07:41 Dose: 1 tab Aspirin (Ecotrin -) 81 mg PO DAILY [facility] Last Admin: 07/30/19 09:43 Dose: 81 mg Chlorhexidine Gluconate (Hibiclens For Decolonization -) 1 applic TP HS [facility] Last Admin: 07/29/19 21:19 Dose: Not Given Heparin Sodium (Porcine) (Heparin -) 5,000 unit SQ TID [facility] Last Admin: 07/30/19 06:07 Dose: 5,000 unit Hydrocortisone (Hytone 1% Cream -) 1 applic TP BID [facility] Last Admin: 07/30/19 09:43 Dose: 1 applic Fentanyl 500 mcg/ Dextrose 100 mls @ 5 mls/hr IVPB TITR [facility]; Protocol Metoprolol Tartrate (Lopressor -) 25 mg PO BID [facility] Last Admin: 07/30/19 09:43 Dose: 25 mg Multi-Ingredient Ointment (Zinc Oxide) 1 applic TP DAILY [facility] Last Admin: 07/30/19 09:44 Dose: 1 applic Nystatin (Mycostatin Cream -) 1 applic TP BID [facility] Last Admin: 07/30/19 09:43 Dose: 1 applic Sertraline HCl (Zoloft -) 50 mg PO DAILY [facility] Last Admin: 07/30/19 09:43 Dose: 50 mg Spironolactone (Aldactone -) 25 mg PO DAILY [facility] Last Admin: 07/30/19 09:43 Dose: 25 mg Valsartan (Diovan -) 80 mg PO DAILY [facility] Last Admin: 07/30/19 09:43 Dose: 80 mg - Objective Vital Signs: Vital Signs Temperature 97.9 F 07/30/19 08:48 Pulse Rate 67 07/30/19 08:48 Respiratory Rate 19 07/30/19 08:55 Blood Pressure 151/54 L 07/30/19 08:48 O2 Sat by Pulse Oximetry (%) 98 07/30/19 08:55 Eyes: Yes: PERRL HENT: Yes: Atraumatic Neck: Yes: Supple Cardiovascular: Yes: Regular Rate and Rhythm, S1, S2 Respiratory: Yes: Diminished Gastrointestinal: Yes: Normal Bowel Sounds, Soft. No: Tenderness Edema: No Additional Findings/Remarks: - Review of Systems Constitutional: denies Chills, Fever Cardiovascular: denies Chest Pain, Shortness of Breath. denies: Palpitations Respiratory: denies Cough, SOB. denies: Hemoptysis, Orthopnea, PND Gastrointestinal: denies: Abdominal Pain, Constipation, Diarrhea, Melena, Nausea , Rectal Bleeding, Vomiting Musculoskeletal: denies Joint Pain Neurological: denies: Dizziness, denies: Headache, Seizure, Syncope Labs: CBC, BMP 07/28/19 05:02 07/30/19 06:05 Problem List - Problems (1) Acute respiratory failure with hypoxia and hypercarbia Code(s): J96.01 - ACUTE RESPIRATORY FAILURE WITH HYPOXIA; J96.02 - ACUTE RESPIRATORY FAILURE WITH HYPERCAPNIA (2) Coronary artery disease Code(s): I25.10 - ATHSCL HEART DISEASE OF [place] CORONARY ARTERY W/O ANG PCTRS Qualifiers: Coronary Disease-Associated Artery/Lesion type: [place] artery [place] vs. transplanted heart: [place] heart Associated angina: without angina Qualified Code(s): I25.10 - Atherosclerotic heart disease of [place] coronary artery without angina pectoris (3) Acute diastolic heart failure Code(s): I50.31 - ACUTE DIASTOLIC (CONGESTIVE) HEART FAILURE (4) Anemia Code(s): D64.9 - ANEMIA, UNSPECIFIED (5) Diastolic dysfunction Code(s): I51.89 - OTHER ILL-DEFINED HEART DISEASES (6) HTN (hypertension) Code(s): I10 - ESSENTIAL (PRIMARY) HYPERTENSION Qualifiers: Hypertension type: essential hypertension Qualified Code(s): I10 - Essential (primary) hypertension (7) Demand ischemia Code(s): I24.8 - OTHER FORMS OF ACUTE ISCHEMIC HEART DISEASE (8) Respiratory failure Code(s): J96.90 - RESPIRATORY FAILURE, UNSP, UNSP W HYPOXIA OR HYPERCAPNIA Qualifiers: Chronicity: acute Respiratory failure complication: hypoxia and hypercapnia Qualified Code(s): J96.01 - Acute respiratory failure with hypoxia ; J96.02 - Acute respiratory failure with hypercapnia (9) Septic shock Code(s): A41.9 - SEPSIS, UNSPECIFIED ORGANISM; R65.21 - SEVERE SEPSIS WITH SEPTIC SHOCK Assessment/Plan 1. Acute Hypoxic and Hypercapneic Respiratory Failure 2. Acute on chronic diastolic heart failure 3. ? Aspiration pneumonia 4. Coronary artery disease with h/o demand ischemic injury angina pectoris 5. Hypertensive cardiovascular disease 6. History of non-sustained ventricular tachycardia 7. Right common carotid stenosis, moderate in severity 8. History of iatrogenic pneumothorax post right chest tube insertion/ complication of subclavian line insertion 9. Chronic Subdural Hematoma 10. PSVT 11. Pre-renal azotemia PLAN: 1. Oral diuresis as needed with monitor renal function and electrolytes 2. Empiric antibiotic course 3. Continue ASA 81 mg QD, Metoprolol Tartrate 25 mg BID and Diovan 80 mg QD as tolerated 4. Bronchodilator and Oxygen as needed 5. PT as tolerated Further plans are to follow Robbi Markham MD
--- NOTE | 2019-07-30 13:43 | PN ---
Progress Note (short form) - Note Progress Note: Feels overall better. No CP or SOB. Some dry cough. Son is at the bedside. Intake & Output 07/27/19 07/28/19 07/29/19 07/30/19 23:59 23:59 23:59 23:59 Intake Total 775 550 630 300 Output Total 400 2100 Balance 375 -1550 630 300 Weight 97 lb 3 oz 97 lb 3.2 oz 96 lb 3.2 oz Last Vital Signs Temp Pulse Resp BP Pulse Ox 97.9 F 67 19 151/54 L 98 07/30/19 08:48 07/30/19 08:48 07/30/19 08:55 07/30/19 08:48 07/30/19 08:55 Active Medications Acetaminophen (Tylenol -) 650 mg PO Q6H PRN PRN Reason: Fever Or Pain Last Admin: 07/30/19 03:45 Dose: 650 mg Albuterol Sulfate (Ventolin 0.083% Nebulizer Soln -) 1 amp NEB Q4H PRN PRN Reason: SHORT OF BREATH/WHEEZING Albuterol/Ipratropium (Duoneb -) 1 amp NEB RQ4H [facility] Last Admin: 07/30/19 12:07 Dose: 1 amp Amoxicillin/Clavulanate Potassium (Augmentin - 500mg Tablet) 1 tab PO BID@0800, 1730 [facility] Last Admin: 07/30/19 07:41 Dose: 1 tab Aspirin (Ecotrin -) 81 mg PO DAILY [facility] Last Admin: 07/30/19 09:43 Dose: 81 mg Chlorhexidine Gluconate (Hibiclens For Decolonization -) 1 applic TP HS [facility] Last Admin: 07/29/19 21:19 Dose: Not Given Heparin Sodium (Porcine) (Heparin -) 5,000 unit SQ TID [facility] Last Admin: 07/30/19 06:07 Dose: 5,000 unit Hydrocortisone (Hytone 1% Cream -) 1 applic TP BID [facility] Last Admin: 07/30/19 09:43 Dose: 1 applic Fentanyl 500 mcg/ Dextrose 100 mls @ 5 mls/hr IVPB TITR [facility]; Protocol Metoprolol Tartrate (Lopressor -) 25 mg PO BID [facility] Last Admin: 07/30/19 09:43 Dose: 25 mg Multi-Ingredient Ointment (Zinc Oxide) 1 applic TP DAILY [facility] Last Admin: 07/30/19 09:44 Dose: 1 applic Nystatin (Mycostatin Cream -) 1 applic TP BID [facility] Last Admin: 07/30/19 09:43 Dose: 1 applic Sertraline HCl (Zoloft -) 50 mg PO DAILY [facility] Last Admin: 07/30/19 09:43 Dose: 50 mg Spironolactone (Aldactone -) 25 mg PO DAILY [facility] Last Admin: 07/30/19 09:43 Dose: 25 mg Valsartan (Diovan -) 80 mg PO DAILY [facility] Last Admin: 07/30/19 09:43 Dose: 80 mg Constitutional: Yes: Awake and alert, NAD Eyes: Yes: Conjunctiva Clear, PERRL HENT: Yes: Atraumatic, Normocephalic Neck: Yes: Supple, Trachea Midline Cardiovascular: Yes: Regular Rate and Rhythm, Murmur, S1, S2 Respiratory: Yes: few scattered rales / rhonchi Gastrointestinal: Yes: Soft, (+) Bowel Sounds Renal/: Yes: Mills Present Musculoskeletal: Yes: WNL Extremities: Yes: WNL Edema: No Peripheral Pulses WNL: Yes Integumentary: Yes: WNL, Other (dermatitis) Neurological: Yes: Non-focal Labs: Laboratory Results - last 24 hr 07/30/19 06:05 Sodium 141 Potassium 4.0 Chloride 104 Carbon Dioxide 33 H Anion Gap 5 L BUN 15.7 Creatinine 0.4 L Est GFR (CKD-EPI)AfAm 109.31 Est GFR (CKD-EPI)NonAf 94.31 Random Glucose 90 Calcium 9.4 Total Bilirubin 0.8 AST 21 ALT 33 Alkaline Phosphatase 84 Total Protein 6.1 L Albumin 3.1 L Problem List - Problems (1) Hypercarbia Code(s): R06.89 - OTHER ABNORMALITIES OF BREATHING (2) Acute respiratory failure with hypoxia and hypercarbia Code(s): J96.01 - ACUTE RESPIRATORY FAILURE WITH HYPOXIA; J96.02 - ACUTE RESPIRATORY FAILURE WITH HYPERCAPNIA (3) Acute diastolic heart failure Code(s): I50.31 - ACUTE DIASTOLIC (CONGESTIVE) HEART FAILURE (4) Respiratory failure Code(s): J96.90 - RESPIRATORY FAILURE, UNSP, UNSP W HYPOXIA OR HYPERCAPNIA Qualifiers: Chronicity: acute Respiratory failure complication: hypoxia and hypercapnia Qualified Code(s): J96.01 - Acute respiratory failure with hypoxia ; J96.02 - Acute respiratory failure with hypercapnia Assessment/Plan HFpEF HTN Depression Right CCA stenosis Chronic Right subdural hematoma History of Right Iatrogenic PTX on last admission NC O2 as needed to maintain saturation Can consider to restart PO Lasix (D/W Cardiology) Noted PO ABX Daily weights Follow I & O BD TX VTE prophylaxis Dr Pemberton
[2019-07-30] MEDS: CHLORHEXIDINE GLUCONATE 4% CLEANSER FOR DECOLONIZATION TP SCH (22:07)
[2019-07-31] MEDS: ALBUTEROL SO4 2.5/IPRATROPIUM 0.5 INH SOL 3 ML VIAL.NEB. NEB SCH ×6 (00:15→20:58)
[2019-07-31] MEDS: HEPARIN NA (PORCINE) 5,000 UNITS/ML 1ML VIAL SQ SCH ×3 (06:25→21:51)
[2019-07-31 07:07] LABS: BASO % 2.8 % (0-2.0); EOS % 1.7 % (0-4.5); HEMATOCRIT 40.5 % (32.4-45.2); HEMOGLOBIN 13.2 GM/dL (10.7-15.3); LYMPH % 25.2 % (8-40); MCH 29.9 pg (25.7-33.7); MCHC 32.6 g/dl (32.0-36.0); MEAN CELL VOLUME 91.8 fl (80-96); MEAN PLT VOLUME 10.7 fl (7.5-11.1); NEUT % 59.3 % (42.8-82.8); PLATELET COUNT 258 K/MM3 (134-434); RBC 4.41 M/mm3 (3.60-5.2); RDW 14.6 % (11.6-15.6); WHITE BLOOD COUNT 7.7 K/mm3 (4.0-10.0)
[2019-07-31 07:33] LABS: ALBUMIN 3.2 g/dl (3.4-5.0); BILIRUBIN,TOTAL 0.8 mg/dL (0.2-1); BLOOD UREA NITROGEN 21.4 mg/dL (7-18); CALCIUM 9.3 mg/dL (8.5-10.1); CREATININE 0.4 mg/dL (0.55-1.3); MAGNESIUM 2.3 mg/dL (1.8-2.4); PHOSPHOROUS 3.5 mg/dL (2.5-4.9); POTASSIUM 3.9 mmol/L (3.5-5.1); TOT PROT 6.1 g/dl (6.4-8.2)
[2019-07-31] MEDS: AMOX TR/POT CLAV 500MG/125MG TABLETS (FP) PO SCH ×2 (08:42→18:01)
[2019-07-31] MEDS: SPIRONOLACTONE 25 MG TABLET (FP) PO SCH (09:20)
[2019-07-31] MEDS: VALSARTAN 40 MG TABLET (FP) PO SCH (09:20)
[2019-07-31] MEDS: NYSTATIN 100,000 UNIT/GM TOPICAL CREAM 15 GM TUBE TP SCH ×2 (09:21→21:52)
[2019-07-31] MEDS: HYDROCORTISONE 1% TOPICAL CREAM 30 GM TUBE TP SCH ×2 (09:21→21:51)
[2019-07-31] MEDS: METOPROLOL TARTRATE 25 MG TABLET (FP) PO SCH ×2 (09:21→21:53)
[2019-07-31] MEDS: ASPIRIN COATED 81 MG TABLET.EC PO SCH (09:21)
[2019-07-31] MEDS: SERTRALINE HCL 50 MG TABLET (FP) PO SCH (09:21)
[2019-07-31] MEDS: ZINC OXIDE 20% TOPICAL OINTMENT 30 GM TUBE TP SCH (09:21)
--- NOTE | 2019-07-31 10:00 | PN ---
Progress Note (short form) - Note Progress Note: Feels overall better. Comfortable on RA. No CP or SOB. Some dry cough. Intake & Output 07/28/19 07/29/19 07/30/19 07/31/19 23:59 23:59 23:59 23:59 Intake Total 742 845 1879 130 Output Total 2100 Balance -6709 262 3235 130 Weight 97 lb 3.2 oz 96 lb 3.2 oz Last Vital Signs Temp Pulse Resp BP Pulse Ox 98.1 F 75 18 135/53 L 94 L 07/31/19 08:45 07/31/19 08:45 07/31/19 08:45 07/31/19 08:45 07/31/19 08:43 Active Medications Acetaminophen (Tylenol -) 650 mg PO Q6H PRN PRN Reason: Fever Or Pain Last Admin: 07/30/19 03:45 Dose: 650 mg Albuterol Sulfate (Ventolin 0.083% Nebulizer Soln -) 1 amp NEB Q4H PRN PRN Reason: SHORT OF BREATH/WHEEZING Albuterol/Ipratropium (Duoneb -) 1 amp NEB RQ4H [facility] Last Admin: 07/31/19 07:40 Dose: 1 amp Amoxicillin/Clavulanate Potassium (Augmentin - 500mg Tablet) 1 tab PO BID@0800, 1730 [facility] Last Admin: 07/31/19 08:42 Dose: 1 tab Aspirin (Ecotrin -) 81 mg PO DAILY [facility] Last Admin: 07/31/19 09:21 Dose: 81 mg Chlorhexidine Gluconate (Hibiclens For Decolonization -) 1 applic TP HS [facility] Last Admin: 07/30/19 22:07 Dose: Not Given Heparin Sodium (Porcine) (Heparin -) 5,000 unit SQ TID [facility] Last Admin: 07/31/19 06:25 Dose: 5,000 unit Hydrocortisone (Hytone 1% Cream -) 1 applic TP BID [facility] Last Admin: 07/31/19 09:21 Dose: 1 applic Fentanyl 500 mcg/ Dextrose 100 mls @ 5 mls/hr IVPB TITR [facility]; Protocol Metoprolol Tartrate (Lopressor -) 25 mg PO BID [facility] Last Admin: 07/31/19 09:21 Dose: 25 mg Multi-Ingredient Ointment (Zinc Oxide) 1 applic TP DAILY [facility] Last Admin: 07/31/19 09:21 Dose: 1 applic Nystatin (Mycostatin Cream -) 1 applic TP BID [facility] Last Admin: 07/31/19 09:21 Dose: 1 applic Sertraline HCl (Zoloft -) 50 mg PO DAILY [facility] Last Admin: 07/31/19 09:21 Dose: 50 mg Spironolactone (Aldactone -) 25 mg PO DAILY [facility] Last Admin: 07/31/19 09:20 Dose: 25 mg Valsartan (Diovan -) 80 mg PO DAILY [facility] Last Admin: 07/31/19 09:20 Dose: 80 mg Constitutional: Yes: Awake and alert, NAD Eyes: Yes: Conjunctiva Clear, PERRL HENT: Yes: Atraumatic, Normocephalic Neck: Yes: Supple, Trachea Midline Cardiovascular: Yes: Regular Rate and Rhythm, Murmur, S1, S2 Respiratory: Yes: few scattered rales / rhonchi Gastrointestinal: Yes: Soft, (+) Bowel Sounds Renal/: Yes: Mills Present Musculoskeletal: Yes: WNL Extremities: Yes: WNL Edema: No Peripheral Pulses WNL: Yes Integumentary: Yes: WNL, Other (dermatitis) Neurological: Yes: Non-focal Labs: Laboratory Results - last 24 hr 07/31/19 07/31/19 06:15 06:15 WBC 7.7 RBC 4.41 Hgb 13.2 Hct 40.5 D MCV 91.8 MCH 29.9 MCHC 32.6 RDW 14.6 Plt Count 258 MPV 10.7 Absolute Neuts (auto) 4.5 Neutrophils % 59.3 Lymphocytes % 25.2 D Monocytes % 11.0 H Eosinophils % 1.7 Basophils % 2.8 H Nucleated RBC % 0 Sodium 143 Potassium 3.9 Chloride 104 Carbon Dioxide 32 Anion Gap 7 L BUN 21.4 H Creatinine 0.4 L Est GFR (CKD-EPI)AfAm 109.31 Est GFR (CKD-EPI)NonAf 94.31 Random Glucose 87 Calcium 9.3 Phosphorus 3.5 Magnesium 2.3 Total Bilirubin 0.8 AST 20 ALT 36 Alkaline Phosphatase 85 Total Protein 6.1 L Albumin 3.2 L Problem List - Problems (1) Hypercarbia Code(s): R06.89 - OTHER ABNORMALITIES OF BREATHING (2) Acute respiratory failure with hypoxia and hypercarbia Code(s): J96.01 - ACUTE RESPIRATORY FAILURE WITH HYPOXIA; J96.02 - ACUTE RESPIRATORY FAILURE WITH HYPERCAPNIA (3) Acute diastolic heart failure Code(s): I50.31 - ACUTE DIASTOLIC (CONGESTIVE) HEART FAILURE (4) Respiratory failure Code(s): J96.90 - RESPIRATORY FAILURE, UNSP, UNSP W HYPOXIA OR HYPERCAPNIA Qualifiers: Chronicity: acute Respiratory failure complication: hypoxia and hypercapnia Qualified Code(s): J96.01 - Acute respiratory failure with hypoxia ; J96.02 - Acute respiratory failure with hypercapnia Assessment/Plan HFpEF HTN Depression Right CCA stenosis Chronic Right subdural hematoma History of Right Iatrogenic PTX on last admission NC O2 as needed to maintain saturation Can consider to restart PO Lasix (D/W Cardiology) Noted PO ABX Daily weights Follow I & O BD TX VTE prophylaxis DC planning to SNF Dr Pemberton
--- NOTE | 2019-07-31 10:32 | PN ---
Progress Note, Physician Chief Complaint: Events noted Not in distress History of Present Illness: Patient was seen and examined. Awake and alert. Chart was reviewed Denies chest pain. Dyspnea improving - Current Medication List Current Medications: Active Medications Acetaminophen (Tylenol -) 650 mg PO Q6H PRN PRN Reason: Fever Or Pain Last Admin: 07/30/19 03:45 Dose: 650 mg Albuterol Sulfate (Ventolin 0.083% Nebulizer Soln -) 1 amp NEB Q4H PRN PRN Reason: SHORT OF BREATH/WHEEZING Albuterol/Ipratropium (Duoneb -) 1 amp NEB RQ4H [facility] Last Admin: 07/31/19 07:40 Dose: 1 amp Amoxicillin/Clavulanate Potassium (Augmentin - 500mg Tablet) 1 tab PO BID@0800, 1730 [facility] Last Admin: 07/31/19 08:42 Dose: 1 tab Aspirin (Ecotrin -) 81 mg PO DAILY [facility] Last Admin: 07/31/19 09:21 Dose: 81 mg Chlorhexidine Gluconate (Hibiclens For Decolonization -) 1 applic TP HS [facility] Last Admin: 07/30/19 22:07 Dose: Not Given Heparin Sodium (Porcine) (Heparin -) 5,000 unit SQ TID [facility] Last Admin: 07/31/19 06:25 Dose: 5,000 unit Hydrocortisone (Hytone 1% Cream -) 1 applic TP BID [facility] Last Admin: 07/31/19 09:21 Dose: 1 applic Fentanyl 500 mcg/ Dextrose 100 mls @ 5 mls/hr IVPB TITR [facility]; Protocol Metoprolol Tartrate (Lopressor -) 25 mg PO BID [facility] Last Admin: 07/31/19 09:21 Dose: 25 mg Multi-Ingredient Ointment (Zinc Oxide) 1 applic TP DAILY [facility] Last Admin: 07/31/19 09:21 Dose: 1 applic Nystatin (Mycostatin Cream -) 1 applic TP BID [facility] Last Admin: 07/31/19 09:21 Dose: 1 applic Sertraline HCl (Zoloft -) 50 mg PO DAILY [facility] Last Admin: 07/31/19 09:21 Dose: 50 mg Spironolactone (Aldactone -) 25 mg PO DAILY [facility] Last Admin: 07/31/19 09:20 Dose: 25 mg Valsartan (Diovan -) 80 mg PO DAILY [facility] Last Admin: 07/31/19 09:20 Dose: 80 mg - Objective Vital Signs: Vital Signs Temperature 98.1 F 07/31/19 08:45 Pulse Rate 75 07/31/19 08:45 Respiratory Rate 18 07/31/19 08:45 Blood Pressure 135/53 L 07/31/19 08:45 O2 Sat by Pulse Oximetry (%) 94 L 07/31/19 08:43 Eyes: Yes: PERRL HENT: Yes: Atraumatic Neck: Yes: Supple Cardiovascular: Yes: Regular Rate and Rhythm, S1, S2 Respiratory: Yes: Diminished Gastrointestinal: Yes: Normal Bowel Sounds, Soft. No: Tenderness Edema: No Labs: CBC, BMP 07/31/19 06:15 07/31/19 06:15 Problem List - Problems (1) Acute respiratory failure with hypoxia and hypercarbia Code(s): J96.01 - ACUTE RESPIRATORY FAILURE WITH HYPOXIA; J96.02 - ACUTE RESPIRATORY FAILURE WITH HYPERCAPNIA (2) Coronary artery disease Code(s): I25.10 - ATHSCL HEART DISEASE OF [place] CORONARY ARTERY W/O ANG PCTRS Qualifiers: Coronary Disease-Associated Artery/Lesion type: [place] artery [place] vs. transplanted heart: [place] heart Associated angina: without angina Qualified Code(s): I25.10 - Atherosclerotic heart disease of [place] coronary artery without angina pectoris (3) Acute diastolic heart failure Code(s): I50.31 - ACUTE DIASTOLIC (CONGESTIVE) HEART FAILURE (4) Anemia Code(s): D64.9 - ANEMIA, UNSPECIFIED (5) Diastolic dysfunction Code(s): I51.89 - OTHER ILL-DEFINED HEART DISEASES (6) HTN (hypertension) Code(s): I10 - ESSENTIAL (PRIMARY) HYPERTENSION Qualifiers: Hypertension type: essential hypertension Qualified Code(s): I10 - Essential (primary) hypertension (7) Demand ischemia Code(s): I24.8 - OTHER FORMS OF ACUTE ISCHEMIC HEART DISEASE (8) Respiratory failure Code(s): J96.90 - RESPIRATORY FAILURE, UNSP, UNSP W HYPOXIA OR HYPERCAPNIA Qualifiers: Chronicity: acute Respiratory failure complication: hypoxia and hypercapnia Qualified Code(s): J96.01 - Acute respiratory failure with hypoxia ; J96.02 - Acute respiratory failure with hypercapnia (9) Septic shock Code(s): A41.9 - SEPSIS, UNSPECIFIED ORGANISM; R65.21 - SEVERE SEPSIS WITH SEPTIC SHOCK Assessment/Plan 1. Acute Hypoxic and Hypercapneic Respiratory Failure 2. Acute on chronic diastolic heart failure 3. ? Aspiration pneumonia 4. Coronary artery disease with h/o demand ischemic injury angina pectoris 5. Hypertensive cardiovascular disease 6. History of non-sustained ventricular tachycardia 7. Right common carotid stenosis, moderate in severity 8. History of iatrogenic pneumothorax post right chest tube insertion/ complication of subclavian line insertion 9. Chronic Subdural Hematoma 10. PSVT 11. Pre-renal azotemia PLAN: 1. Oral diuresis as needed with monitor renal function and electrolytes 2. Empiric antibiotic course 3. Continue ASA 81 mg QD, Metoprolol Tartrate 25 mg BID and Diovan 80 mg QD as tolerated 4. Bronchodilator and Oxygen as needed 5. PT as tolerated Further plans are to follow Robbi Markham MD
--- NOTE | 2019-07-31 14:31 | PN ---
Physical Exam: SUBJECTIVE: Patient seen and examined at bedside in telemetry bed. No complaints overnight. She offers no complaints this morning. Discussed plan to prevent re-admission with patient and son. She is satisfied with her progress so far. Plan to go to [facility] tomorrow 01 Aug 2019. OBJECTIVE: Vital Signs Period Temp Pulse Resp BP Sys/Da Silva Pulse Ox Last 24 Hr 97.6 F-98.4 F 69-83 17-18 122-141/45-66 94-94 GENERAL: AOx3, in good spirits, on 2L NC HEAD: NC EYES: NELSON, EOMI, conjunctiva clear. ENT: Ears normal, nares patent, oropharynx clear without exudates. Moist mucous membranes. NECK: No lymphadenopathy, some JVD LUNGS: CTA LEFT > RIGHT. No adventitous sounds. No accessory muscle use. HEART: RRR s1 s2. 2/6 systolic murmur radiating to back. ABDOMEN: Soft, BS present in all 4 quadrants, non-distended, no JVD, MUSCULOSKELETAL: Kyphosis. Left hand contracted (chronic). No CVA tenderness. UPPER EXTREMITIES: 2+ pulses, warm, well-perfused. No cyanosis. No clubbing. No peripheral edema. LOWER EXTREMITIES: 2+ pulses, warm, well-perfused. No calf tenderness. No peripheral edema. NEUROLOGICAL: No focal deficits. Cranial nerves II-XII intact. Normal speech. PSYCHIATRIC: Cooperative. Good eye contact. Appropriate mood and affect. SKIN: Resolving RUE ecchymosis extending down flank and spared in certain areas . Echymosis on flexor surface of RUE. Warm, dry, normal turgor, normal capillary refill. Ducubitus ulcer on sacrum. Laboratory Results - last 24 hr 07/31/19 07/31/19 06:15 06:15 WBC 7.7 RBC 4.41 Hgb 13.2 Hct 40.5 D MCV 91.8 MCH 29.9 MCHC 32.6 RDW 14.6 Plt Count 258 MPV 10.7 Absolute Neuts (auto) 4.5 Neutrophils % 59.3 Lymphocytes % 25.2 D Monocytes % 11.0 H Eosinophils % 1.7 Basophils % 2.8 H Nucleated RBC % 0 Sodium 143 Potassium 3.9 Chloride 104 Carbon Dioxide 32 Anion Gap 7 L BUN 21.4 H Creatinine 0.4 L Est GFR (CKD-EPI)AfAm 109.31 Est GFR (CKD-EPI)NonAf 94.31 Random Glucose 87 Calcium 9.3 Phosphorus 3.5 Magnesium 2.3 Total Bilirubin 0.8 AST 20 ALT 36 Alkaline Phosphatase 85 Total Protein 6.1 L Albumin 3.2 L Active Medications Acetaminophen (Tylenol -) 650 mg PO Q6H PRN PRN Reason: Fever Or Pain Last Admin: 07/30/19 03:45 Dose: 650 mg Albuterol Sulfate (Ventolin 0.083% Nebulizer Soln -) 1 amp NEB Q4H PRN PRN Reason: SHORT OF BREATH/WHEEZING Albuterol/Ipratropium (Duoneb -) 1 amp NEB RQ4H [facility] Last Admin: 07/31/19 11:15 Dose: Not Given Amoxicillin/Clavulanate Potassium (Augmentin - 500mg Tablet) 1 tab PO BID@0800, 1730 [facility] Last Admin: 07/31/19 08:42 Dose: 1 tab Aspirin (Ecotrin -) 81 mg PO DAILY [facility] Last Admin: 07/31/19 09:21 Dose: 81 mg Chlorhexidine Gluconate (Hibiclens For Decolonization -) 1 applic TP HS [facility] Last Admin: 07/30/19 22:07 Dose: Not Given Heparin Sodium (Porcine) (Heparin -) 5,000 unit SQ TID [facility] Last Admin: 07/31/19 14:14 Dose: 5,000 unit Hydrocortisone (Hytone 1% Cream -) 1 applic TP BID [facility] Last Admin: 07/31/19 09:21 Dose: 1 applic Fentanyl 500 mcg/ Dextrose 100 mls @ 5 mls/hr IVPB TITR [facility]; Protocol Metoprolol Tartrate (Lopressor -) 25 mg PO BID [facility] Last Admin: 07/31/19 09:21 Dose: 25 mg Multi-Ingredient Ointment (Zinc Oxide) 1 applic TP DAILY [facility] Last Admin: 07/31/19 09:21 Dose: 1 applic Nystatin (Mycostatin Cream -) 1 applic TP BID [facility] Last Admin: 07/31/19 09:21 Dose: 1 applic Sertraline HCl (Zoloft -) 50 mg PO DAILY [facility] Last Admin: 07/31/19 09:21 Dose: 50 mg Spironolactone (Aldactone -) 25 mg PO DAILY [facility] Last Admin: 07/31/19 09:20 Dose: 25 mg Valsartan (Diovan -) 80 mg PO DAILY [facility] Last Admin: 07/31/19 09:20 Dose: 80 mg ASSESSMENT/PLAN: 88 y/o female PMH HTN, HFpEF, depression, chronic RIGHT subdural hematoma, ETOH abuse, RIGHT carotid artery stenosis, and recent admission for acute hypoxic hypercapnic respiratory failure. Pt brought to hospital after UNDERTAKER HELPER found pt to be tachypnic and demonstrating increased work of breathing. She was placed on non-rebreather and oxygen saturation remained low. She was intubated and brought to the ICU. She is now s/p extubation, saturating well on telemetry unit. Plan to go to [facility] tomorrow 01 Aug 2019. # Acute hypoxic, hypercapnic respiratory failure: HF vs aspiration PNA - Now monitored in telemetry, SVT overnight resolved on own. - Off levophed - Per cardio: switch lasix to spironolactone 25 PO QD - weaker diuretic (to avoid contraction alkalosis) and better support for diastolic dysfunction. - Monitor i/o + daily weights - Per ID: AUGMENTIN 500MG PO BID X 3D - Diastolic left ventricular dysfunction with clinical class 0-I [place] Heart [employer] classification left ventricular failure/elevated B-type natriuretic peptide- most likely related to sepsis syndrome. Moderate pulmonary HTN. - Maintain MAP > 65 - Echo from last admission: mitral valve regurg, aortic regurg. Echo done : EF 55-60%, mild MR, pulm HTN, & AR - Renovascular US r/o renal artery stenosis to help elucidate acute decompensation # RIGHT sided Contact dermatitis, stage 2 sacral pressure ulcer - cortisone 1% BID to area - zinc oxide for decubital ulcer - vaseline for lips # HTN CARDIOLOGY REC - ASA 81 mg qd, metoprolol 25 mg bid, Diovan 40 mg qd as hemodynamics permit - Spironolactone 25 PO QD # Leukocytosis, resolved - WBC 7.7 # F/E/N - NO FLUIDS, start spironolactone tomorrow - Cont. to monitor - Per S/S: Upgraded to soft,rg diet. # DVT prophylaxis - Heparin SQ # Disposition - Full code - Plan to go to [facility] tomorrow 01 Aug 2019. Enrrique iLn MD Visit type - Emergency Visit Emergency Visit: No - New Patient This patient is new to me today: No - Critical Care Critical Care patient: No ATTENDING PHYSICIAN STATEMENT I saw and evaluated the patient. I reviewed the resident's note and discussed the case with the resident. I agree with the resident's findings and plan as documented. SUBJECTIVE: OBJECTIVE: ASSESSMENT AND PLAN:
--- NOTE | 2019-07-31 18:59 | PN ---
Teaching Attending Note Name of Resident: Enrrique Lin ATTENDING PHYSICIAN STATEMENT I saw and evaluated the patient. I reviewed the resident's note and discussed the case with the resident. I agree with the resident's findings and plan as documented. SUBJECTIVE: Patient has no new complains, no shortness of breath, no nausea or vomiting. Vital Signs Temperature 98.3 F 07/31/19 14:00 Pulse Rate 71 07/31/19 14:00 Respiratory Rate 18 07/31/19 14:00 Blood Pressure 139/66 07/31/19 14:00 O2 Sat by Pulse Oximetry (%) 94 L 07/31/19 08:43 GENERAL: The patient is awake, alert, and oriented x3, in NAD.on oxygen HEAD: Normal with no signs of trauma. EYES: PERRL, extraocular movements intact, sclera anicteric, conjunctiva clear. ENT: Ears normal, on NC now, clear without exudates, moist mucous membranes. NECK: Trachea midline, full range of motion, supple. LUNGS: Breath sounds equal, decreased BS BL , no accessory muscle use. HEART: Regular rate and rhythm, S1, S2 positive, basilio 2/6 , no rub or gallop. ABDOMEN: Soft, NT, ND, +BS, no guarding, no rebound, no hepatosplenomegaly, no masses. EXTREMITIES: 2+ pulses, warm, well-perfused, no edema. NEUROLOGICAL: Cranial nerves II through XII grossly intact. Normal speech, gait not observed. PSYCH: Normal mood, normal affect. SKIN: Warm, dry, normal turgor, no rashes or lesions noted CBCD WBC 7.7 K/mm3 (4.0-10.0) 07/31/19 06:15 RBC 4.41 M/mm3 (3.60-5.2) 07/31/19 06:15 Hgb 13.2 GM/dL (10.7-15.3) 07/31/19 06:15 Hct 40.5 % (32.4-45.2) D 07/31/19 06:15 MCV 91.8 fl (80-96) 07/31/19 06:15 MCHC 32.6 g/dl (32.0-36.0) 07/31/19 06:15 RDW 14.6 % (11.6-15.6) 07/31/19 06:15 Plt Count 258 K/MM3 (134-434) 07/31/19 06:15 MPV 10.7 fl (7.5-11.1) 07/31/19 06:15 CMP Sodium 143 mmol/L (136-145) 07/31/19 06:15 Potassium 3.9 mmol/L (3.5-5.1) 07/31/19 06:15 Chloride 104 mmol/L (98-107) 07/31/19 06:15 Carbon Dioxide 32 mmol/L (21-32) 07/31/19 06:15 Anion Gap 7 MMOL/L (8-16) L 07/31/19 06:15 BUN 21.4 mg/dL (7-18) H 07/31/19 06:15 Creatinine 0.4 mg/dL (0.55-1.3) L 07/31/19 06:15 Random Glucose 87 mg/dL (74-106) 07/31/19 06:15 Calcium 9.3 mg/dL (8.5-10.1) 07/31/19 06:15 Total Bilirubin 0.8 mg/dL (0.2-1) 07/31/19 06:15 AST 20 U/L (15-37) 07/31/19 06:15 ALT 36 U/L (13-61) 07/31/19 06:15 Alkaline Phosphatase 85 U/L (45-117) 07/31/19 06:15 Total Protein 6.1 g/dl (6.4-8.2) L 07/31/19 06:15 Albumin 3.2 g/dl (3.4-5.0) L 07/31/19 06:15 CARDIAC ENZYMES Troponin I 0.04 ng/ml (0.00-0.05) 07/25/19 13:40 Current Medications Generic Name Dose Route Start Last Admin Trade Name Freq PRN Reason Stop Dose Admin Acetaminophen 650 mg 07/30/19 03:33 07/30/19 03:45 Tylenol - PO 650 mg Q6H PRN Administration Fever Or Pain Albuterol Sulfate 1 amp 07/28/19 13:21 Ventolin 0.083% Nebulizer Soln - NEB Q4H PRN SHORT OF BREATH/WHEEZING Albuterol/Ipratropium 1 amp 07/28/19 16:00 07/31/19 16:20 Duoneb - NEB Not Given RQ4H [facility] Amoxicillin/Clavulanate Potassium 1 tab 07/29/19 17:30 07/31/19 18:01 Augmentin - 500mg Tablet PO 1 tab BID@0800,1730 [facility] Administration Aspirin 81 mg 07/29/19 10:00 07/31/19 09:21 Ecotrin - PO 81 mg DAILY [facility] Administration Chlorhexidine Gluconate 1 applic 07/28/19 22:00 07/30/19 22:07 Hibiclens For Decolonization - TP Not Given HS [facility] Heparin Sodium (Porcine) 5,000 unit 07/28/19 14:00 07/31/19 14:14 Heparin - SQ 5,000 unit TID [facility] Administration Hydrocortisone 1 applic 07/28/19 22:00 07/31/19 09:21 Hytone 1% Cream - TP 1 applic BID [facility] Administration Fentanyl 500 mcg/ Dextrose 100 mls @ 5 mls/hr 07/28/19 13:21 IVPB TITR [facility] Protocol 25 MCG/HR Metoprolol Tartrate 25 mg 07/28/19 22:00 07/31/19 09:21 Lopressor - PO 25 mg BID [facility] Administration Multi-Ingredient Ointment 1 applic 07/29/19 10:00 07/31/19 09:21 Zinc Oxide TP 1 applic DAILY [facility] Administration Nystatin 1 applic 07/28/19 22:00 07/31/19 09:21 Mycostatin Cream - TP 1 applic BID [facility] Administration Sertraline HCl 50 mg 07/29/19 10:00 07/31/19 09:21 Zoloft - PO 50 mg DAILY [facility] Administration Spironolactone 25 mg 07/30/19 10:00 07/31/19 09:20 Aldactone - PO 25 mg DAILY [facility] Administration Valsartan 80 mg 07/29/19 10:00 07/31/19 09:20 Diovan - PO 80 mg DAILY [facility] Administration Home Medications Medication Instructions Recorded Sertraline HCl 50 mg PO DAILY 07/07/19 Calcium 500Mg/Vit-D 200 Units 1 tab PO BID 30 Days #60 tab 07/08/19 [Os-Silvio 500+D -] Albuterol Sulfate Inhaler - 1 puff IH Q4H PRN #1 inhaler 07/23/19 [Ventolin HFA Inhaler -] Aspirin 81 mg PO DAILY #30 tab.chew 07/23/19 Furosemide 20 mg PO DAILY 30 Days #30 tablet 07/23/19 Hydrocortisone 1% Ointment [Hytone 1 applic TP DAILY #1 tube 07/23/19 1% Ointment -] LORazepam [Ativan] 0.5 mg PO BID PRN tablet MDD 1.5 07/23/19 Metoprolol Tartrate [Lopressor -] 50 mg PO BID 30 Days #60 tablet 07/23/19 Petrolatum - White [Vaseline -] 1 applic TP DAILY applic 07/23/19 Valsartan [Diovan] 40 mg PO DAILY 30 Days #30 tablet 07/23/19 Zinc Oxide 1 applic TP BID #1 tube 07/23/19 Zinc Oxide 1 applic TP DAILY #1 oint..gm. 07/23/19 Microbiology 07/25/19 04:13 Blood - Peripheral Venous Blood Culture - Final NO GROWTH AFTER 5 DAYS INCUBATION 07/25/19 01:15 Blood - Peripheral Venous Blood Culture - Final NO GROWTH AFTER 5 DAYS INCUBATION 07/25/19 06:00 Sputum - Endotrachea Suction/Ventilator Gram Stain - Final 07/25/19 06:00 Sputum - Endotrachea Suction/Ventilator Sputum Culture - Final NORMAL RESPIRATORY [place] 07/25/19 06:00 Urine - Urine Clean Catch Urine Culture - Final NO GROWTH OBTAINED 07/25/19 18:40 Urine - Urine [place] Legionella Antigen - Final 07/25/19 18:40 Urine - Urine [place] Streptococcus pneumoniae Antigen (M - Final ASSESSMENT AND PLAN: Patient is an 88yof with PMhx of diastolic dysfunction , HTN, depression, chronic R subdural hematoma ,ETOH abuse, R carotid artery stenosis, PNA, UTI, NSVT, with a recent admission for Acute resp failure due to PNA, Acute D CHF, NSTEMI and developed R iatrogenic pneumothorax, who was discharged home and returned 2 days later due to SOB and tachypnia. SHe was found to have acute hypoxic , hypercapnic resp failure and was intubated. #Acute hypoxic, hypercapnic resp failure. s/p extubation , s/p high flow oxygen , saturating 97% on 2l oxygen. as per ID to continue with Augmentin 500mg x 3 more days, 2/3 days now, s/p IV zosyn.no growth so far, cx is negative # s/p Hypotension : normotensive now, continue BP meds. #hypokalemia: normal now, repleted. # R flank contact dermatitis. cont HC #fungal infection on genital area: Nystatin and zinc oxide # H/o recent NSTEMI: cont asa , BB DVT px: heparin sq dc to rehab.
[2019-07-31] MEDS: CHLORHEXIDINE GLUCONATE 4% CLEANSER FOR DECOLONIZATION TP SCH (21:51)
[2019-08-01] MEDS: ALBUTEROL SO4 2.5/IPRATROPIUM 0.5 INH SOL 3 ML VIAL.NEB. NEB SCH ×5 (00:05→15:39)
[2019-08-01] MEDS: HEPARIN NA (PORCINE) 5,000 UNITS/ML 1ML VIAL SQ SCH ×2 (05:55→15:09)
[2019-08-01 09:13] VITALS: TEMP 98.4
[2019-08-01] MEDS: SERTRALINE HCL 50 MG TABLET (FP) PO SCH (09:13)
[2019-08-01] MEDS: VALSARTAN 40 MG TABLET (FP) PO SCH (09:13)
[2019-08-01] MEDS: ZINC OXIDE 20% TOPICAL OINTMENT 30 GM TUBE TP SCH (09:14)
[2019-08-01] MEDS: SPIRONOLACTONE 25 MG TABLET (FP) PO SCH (09:14)
[2019-08-01] MEDS: ASPIRIN COATED 81 MG TABLET.EC PO SCH (09:14)
[2019-08-01] MEDS: HYDROCORTISONE 1% TOPICAL CREAM 30 GM TUBE TP SCH (09:14)
[2019-08-01] MEDS: NYSTATIN 100,000 UNIT/GM TOPICAL CREAM 15 GM TUBE TP SCH (09:14)
[2019-08-01] MEDS: METOPROLOL TARTRATE 25 MG TABLET (FP) PO SCH (09:14)
[2019-08-01] MEDS: AMOX TR/POT CLAV 500MG/125MG TABLETS (FP) PO SCH (09:14)
--- NOTE | 2019-08-01 09:33 | PN ---
Progress Note, Physician History of Present Illness: Dyspnea and O2 requirement continues to improve with diuresis. - Current Medication List Current Medications: Active Medications Acetaminophen (Tylenol -) 650 mg PO Q6H PRN PRN Reason: Fever Or Pain Last Admin: 07/30/19 03:45 Dose: 650 mg Albuterol Sulfate (Ventolin 0.083% Nebulizer Soln -) 1 amp NEB Q4H PRN PRN Reason: SHORT OF BREATH/WHEEZING Albuterol/Ipratropium (Duoneb -) 1 amp NEB RQ4H [facility] Last Admin: 08/01/19 07:32 Dose: Not Given Amoxicillin/Clavulanate Potassium (Augmentin - 500mg Tablet) 1 tab PO BID@0800, 1730 [facility] Last Admin: 08/01/19 09:14 Dose: 1 tab Aspirin (Ecotrin -) 81 mg PO DAILY [facility] Last Admin: 08/01/19 09:14 Dose: 81 mg Chlorhexidine Gluconate (Hibiclens For Decolonization -) 1 applic TP HS [facility] Last Admin: 07/31/19 21:51 Dose: Not Given Heparin Sodium (Porcine) (Heparin -) 5,000 unit SQ TID [facility] Last Admin: 08/01/19 05:55 Dose: 5,000 unit Hydrocortisone (Hytone 1% Cream -) 1 applic TP BID [facility] Last Admin: 08/01/19 09:14 Dose: 1 applic Fentanyl 500 mcg/ Dextrose 100 mls @ 5 mls/hr IVPB TITR [facility]; Protocol Metoprolol Tartrate (Lopressor -) 25 mg PO BID [facility] Last Admin: 08/01/19 09:14 Dose: 25 mg Multi-Ingredient Ointment (Zinc Oxide) 1 applic TP DAILY [facility] Last Admin: 08/01/19 09:14 Dose: 1 applic Nystatin (Mycostatin Cream -) 1 applic TP BID [facility] Last Admin: 08/01/19 09:14 Dose: 1 applic Sertraline HCl (Zoloft -) 50 mg PO DAILY [facility] Last Admin: 08/01/19 09:13 Dose: 50 mg Spironolactone (Aldactone -) 25 mg PO DAILY [facility] Last Admin: 08/01/19 09:14 Dose: 25 mg Valsartan (Diovan -) 80 mg PO DAILY [facility] Last Admin: 08/01/19 09:13 Dose: 80 mg - Objective Vital Signs: Vital Signs Temperature 98.4 F 08/01/19 09:12 Pulse Rate 73 08/01/19 09:12 Respiratory Rate 18 08/01/19 09:12 Blood Pressure 108/40 L 08/01/19 09:12 O2 Sat by Pulse Oximetry (%) 98 07/31/19 21:00 Constitutional: Yes: No Distress, Calm, Thin Neck: Yes: Supple Cardiovascular: Yes: Regular Rate and Rhythm, Varicosities Respiratory: Yes: Diminished, On Nasal O2 Gastrointestinal: Yes: Normal Bowel Sounds, Soft Edema: No Labs: CBC, BMP 07/31/19 06:15 07/31/19 06:15 INR, PTT INR 1.16 (0.83-1.09) H 07/25/19 01:00 - ....Imaging EKG: Report Reviewed (Tele: NSR) Problem List - Problems (1) Acute respiratory failure with hypoxia and hypercarbia Code(s): J96.01 - ACUTE RESPIRATORY FAILURE WITH HYPOXIA; J96.02 - ACUTE RESPIRATORY FAILURE WITH HYPERCAPNIA (2) Acute diastolic heart failure Code(s): I50.31 - ACUTE DIASTOLIC (CONGESTIVE) HEART FAILURE (3) Iatrogenic pneumothorax Code(s): J95.811 - POSTPROCEDURAL PNEUMOTHORAX (4) Coronary artery disease Code(s): I25.10 - ATHSCL HEART DISEASE OF [place] CORONARY ARTERY W/O ANG PCTRS Qualifiers: Coronary Disease-Associated Artery/Lesion type: [place] artery [place] vs. transplanted heart: [place] heart Associated angina: without angina Qualified Code(s): I25.10 - Atherosclerotic heart disease of [place] coronary artery without angina pectoris (5) Paroxysmal atrial tachycardia Code(s): I47.1 - SUPRAVENTRICULAR TACHYCARDIA Assessment/Plan 07/12/2019 echo: Normal biventrucular size and fxn, mod MR, AR 1. Acute Hypoxic and Hypercapneic Respiratory Failure resolving 2. Acute on chronic diastolic heart failure resolving 3. R/o aspiration pneumonia 4. Coronary artery disease with h/o demand ischemic injury angina pectoris 5. Hypertensive cardiovascular disease, hypotension related to the above-noted sepsis syndrome 6. History of non-sustained ventricular tachycardia 7. Right common carotid stenosis, moderate in severity 8. H/o iatrogenic pneumothorax post right chest tube insertion/complication of subclavian line insertion 9. Chronic Subdural Hematoma 10. PSVT, PAT->NSR 11. Pre-renal azotemia resolved PLAN: 1. Oral diuresis with Aldactone 25 qd with monitor diuretic response, renal fxn and electrolytes 2. Completed empiric antibiotic course per C&S 3. Continue ASA 81 qd, metoprolol 25 bid, Diovan 80 qd as hemodynamics permit 4. Wean FIO2 to maintain saO2, BD as needed 5. PT as tolerated, d/c planning
--- NOTE | 2019-08-01 11:29 | PN ---
Progress Note, [employer] - Note Progress Note: Selected Entries 07/31/19 07/31/19 07/31/19 01:25 06:00 08:45 Breakfast Supper Temperature 98.2 F 97.6 F 98.1 F Pulse Rate 07/31/19 07/31/19 07/31/19 11:09 14:00 18:00 Breakfast 50% Supper 75% Temperature 98.3 F 98.0 F Pulse Rate 07/31/19 08/01/19 08/01/19 22:00 02:00 06:00 Breakfast Supper Temperature 98.4 F 97.7 F 97.7 F Pulse Rate 66 63 08/01/19 08/01/19 09:12 10:00 Breakfast 25% Supper Temperature 98.4 F Pulse Rate 73 Laboratory Tests 07/31/19 06:15 WBC 7.7 on soft/thin without symptoms/signs of aspiration.
--- NOTE | 2019-08-01 12:08 | PN ---
Progress Note (short form) - Note Progress Note: Feels overall better. Comfortable. No CP or SOB. Some dry cough. Intake & Output 07/29/19 07/30/19 07/31/19 08/01/19 23:59 23:59 23:59 23:59 Intake Total 630 1040 1050 200 Balance 630 1040 1050 200 Weight 96 lb 3.2 oz 96 lb 2 oz Last Vital Signs Temp Pulse Resp BP Pulse Ox 98.4 F 73 18 108/40 L 98 08/01/19 09:12 08/01/19 09:12 08/01/19 09:12 08/01/19 09:12 08/01/19 09:00 Active Medications Acetaminophen (Tylenol -) 650 mg PO Q6H PRN PRN Reason: Fever Or Pain Last Admin: 07/30/19 03:45 Dose: 650 mg Albuterol Sulfate (Ventolin 0.083% Nebulizer Soln -) 1 amp NEB Q4H PRN PRN Reason: SHORT OF BREATH/WHEEZING Albuterol/Ipratropium (Duoneb -) 1 amp NEB RQ4H [facility] Last Admin: 08/01/19 11:25 Dose: 1 amp Amoxicillin/Clavulanate Potassium (Augmentin - 500mg Tablet) 1 tab PO BID@0800, 1730 [facility] Last Admin: 08/01/19 09:14 Dose: 1 tab Aspirin (Ecotrin -) 81 mg PO DAILY [facility] Last Admin: 08/01/19 09:14 Dose: 81 mg Chlorhexidine Gluconate (Hibiclens For Decolonization -) 1 applic TP HS [facility] Last Admin: 07/31/19 21:51 Dose: Not Given Heparin Sodium (Porcine) (Heparin -) 5,000 unit SQ TID [facility] Last Admin: 08/01/19 05:55 Dose: 5,000 unit Hydrocortisone (Hytone 1% Cream -) 1 applic TP BID [facility] Last Admin: 08/01/19 09:14 Dose: 1 applic Fentanyl 500 mcg/ Dextrose 100 mls @ 5 mls/hr IVPB TITR [facility]; Protocol Metoprolol Tartrate (Lopressor -) 25 mg PO BID [facility] Last Admin: 08/01/19 09:14 Dose: 25 mg Multi-Ingredient Ointment (Zinc Oxide) 1 applic TP DAILY [facility] Last Admin: 08/01/19 09:14 Dose: 1 applic Nystatin (Mycostatin Cream -) 1 applic TP BID [facility] Last Admin: 08/01/19 09:14 Dose: 1 applic Sertraline HCl (Zoloft -) 50 mg PO DAILY [facility] Last Admin: 08/01/19 09:13 Dose: 50 mg Spironolactone (Aldactone -) 25 mg PO DAILY [facility] Last Admin: 08/01/19 09:14 Dose: 25 mg Valsartan (Diovan -) 80 mg PO DAILY [facility] Last Admin: 08/01/19 09:13 Dose: 80 mg Constitutional: Yes: Awake and alert, NAD Eyes: Yes: Conjunctiva Clear, PERRL HENT: Yes: Atraumatic, Normocephalic Neck: Yes: Supple, Trachea Midline Cardiovascular: Yes: Regular Rate and Rhythm, Murmur, S1, S2 Respiratory: Yes: few scattered rales / rhonchi Gastrointestinal: Yes: Soft, (+) Bowel Sounds Renal/: Yes: Mills Present Musculoskeletal: Yes: WNL Extremities: Yes: WNL Edema: No Peripheral Pulses WNL: Yes Integumentary: Yes: WNL, Other (dermatitis) Neurological: Yes: Non-focal Labs: Laboratory Results - last 24 hr 08/01/19 05:20 B-Natriuretic Peptide 566.7 H Problem List - Problems (1) Hypercarbia Code(s): R06.89 - OTHER ABNORMALITIES OF BREATHING (2) Acute respiratory failure with hypoxia and hypercarbia Code(s): J96.01 - ACUTE RESPIRATORY FAILURE WITH HYPOXIA; J96.02 - ACUTE RESPIRATORY FAILURE WITH HYPERCAPNIA (3) Acute diastolic heart failure Code(s): I50.31 - ACUTE DIASTOLIC (CONGESTIVE) HEART FAILURE (4) Respiratory failure Code(s): J96.90 - RESPIRATORY FAILURE, UNSP, UNSP W HYPOXIA OR HYPERCAPNIA Qualifiers: Chronicity: acute Respiratory failure complication: hypoxia and hypercapnia Qualified Code(s): J96.01 - Acute respiratory failure with hypoxia ; J96.02 - Acute respiratory failure with hypercapnia Assessment/Plan HFpEF HTN Depression Right CCA stenosis Chronic Right subdural hematoma History of Right Iatrogenic PTX on last admission NC O2 as needed to maintain saturation Noted Spironolactone was started Noted PO ABX Daily weights Follow I & O BD TX VTE prophylaxis DC planning to SNF Dr Pemberton
[2019-08-01 13:33] VITALS: BP 106/42; PULSE 70
--- NOTE | 2019-08-01 15:06 | DS ---
Physical Exam: SUBJECTIVE: Patient seen and examined OBJECTIVE: Vital Signs Period Temp Pulse Resp BP Sys/Da Silva Pulse Ox Last 24 Hr 97.7 F-98.4 F 63-81 18-20 106-127/36-46 98-98 PHYSICAL EXAM GENERAL: The patient is awake, alert, and fully oriented, in no acute distress. HEAD: Normal with no signs of trauma. EYES: PERRL, extraocular movements intact, sclera anicteric, conjunctiva clear. ENT: Ears normal, nares patent, oropharynx clear without exudates, moist mucous membranes. NECK: Trachea midline, full range of motion, supple. LUNGS: Breath sounds equal, clear to auscultation bilaterally, no wheezes, no crackles, no accessory muscle use. HEART: Regular rate and rhythm, S1, S2 without murmur, rub or gallop. ABDOMEN: Soft, nontender, nondistended, normoactive bowel sounds, no guarding, no rebound, no hepatosplenomegaly, no masses. EXTREMITIES: 2+ pulses, warm, well-perfused, no edema. NEUROLOGICAL: Cranial nerves II through XII grossly intact. Normal speech, gait not observed. PSYCH: Normal mood, normal affect. SKIN: Warm, dry, normal turgor, no rashes or lesions noted. LABS Laboratory Results - last 24 hr 08/01/19 05:20 B-Natriuretic Peptide 566.7 H HOSPITAL COURSE: Date of Admission:07/25/19 Date of Discharge: 08/01/19 Discharge Summary Reason For Visit: RESPIRATORY DISTRESS/PNEUMONIA Current Active Problems Acute respiratory failure with hypoxia and hypercarbia (Acute) Coronary artery disease (Acute) Hypercarbia (Acute) Paroxysmal atrial tachycardia (Acute) Condition: Improved - Instructions Diet, Activity, Other Instructions: YOUR VISIT You came to the hospital because you had difficulty breathing. You were admitted to the hospital for care of respiratory failure. While here you were seen by pulmonology, cardiology, and an infectious disease specialist. You can benefit from continued care in a fdc facility. You are now stable to continue care outside of the hospital. MEDICATIONS Please continue to take your medications as prescribed. *MEDICATION CHANGE* STOP TAKING LASIX Spironolactone 25 mg mg by mouth everyday Take Augmentin 500mg orally 2x per day for 3 more days. ADDITIONAL CARE Please make an appointment to see a primary care provider 1 week from today. Since you do not currently have one, you can be seen at the [facility] residents clinic located at [facility] [place] [address]. Please call to make an appointment. If you would like to continue seeing Dr. Enrrique Lin, please ask for a Thursday morning appointment. Please make an appointment to see a executive sales assistant in 1 week. A referral has to Dr. Beck has been provided. Please make an appointment to see a mucker cofferdam in 1 week. A referral has to Dr. Blevins has been provided. ADDITIONAL INFORMATION Please call 911 or come directly to the emergency department if you experience unusual headache, vision change, shortness of breath, chest pain, numbness, tingling, loss of alertness/awareness, loss of function, unusual bleeding or any alarming symptoms. Referrals: Hayden Blevins MD [Staff Physician] - 1 Week Benny Beck MD [Staff Physician] - 1 Week Disposition: INTERMEDIATE FACILITY - Home Medications Comprehensive Discharge Medication List: Ambulatory Orders Sertraline HCl 50 mg PO DAILY 07/07/19 Calcium 500Mg/Vit-D 200 Units [Os-Silvio 500+D -] 1 tab PO BID 30 Days #60 tab Albuterol Sulfate Inhaler - [Ventolin HFA Inhaler -] 1 puff IH Q4H PRN #1 inhaler 07/23/19 Aspirin 81 mg PO DAILY #30 tab.chew 07/23/19 Furosemide 20 mg PO DAILY 30 Days #30 tablet 07/23/19 Hydrocortisone 1% Ointment [Hytone 1% Ointment -] 1 applic TP DAILY #1 tube LORazepam [Ativan] 0.5 mg PO BID PRN tablet MDD 1.5 07/23/19 Metoprolol Tartrate [Lopressor -] 50 mg PO BID 30 Days #60 tablet 07/23/19 Petrolatum - White [Vaseline -] 1 applic TP DAILY applic 07/23/19 Valsartan [Diovan] 40 mg PO DAILY 30 Days #30 tablet 07/23/19 Zinc Oxide 1 applic TP BID #1 tube 07/23/19 Zinc Oxide 1 applic TP DAILY #1 oint..gm. 07/23/19 ATTENDING PHYSICIAN STATEMENT I saw and evaluated the patient. I reviewed the resident's note and discussed the case with the resident. I agree with the resident's findings and plan as documented. SUBJECTIVE: OBJECTIVE: ASSESSMENT AND PLAN:
--- NOTE | 2019-08-01 15:09 | DS ---
Physical Exam: SUBJECTIVE: Patient seen and examined at bedside. There were no events overnight. She offers no complaints today. Son/HCP, Dr. Caldwell, agreeable to DC to SNF today ([facility]) OBJECTIVE: Vital Signs Period Temp Pulse Resp BP Sys/Da Silva Pulse Ox Last 24 Hr 97.7 F-98.4 F 63-81 18-20 106-127/36-46 98-98 PHYSICAL EXAM GENERAL: AOx3, in good spirits, on 2L NC HEAD: NC EYES: NELSON, EOMI, conjunctiva clear. ENT: Ears normal, nares patent, oropharynx clear without exudates. Moist mucous membranes. NECK: No lymphadenopathy, some JVD LUNGS: CTA LEFT > RIGHT. No adventitous sounds. No accessory muscle use. HEART: RRR s1 s2. 2/6 systolic murmur radiating to back. ABDOMEN: Soft, BS present in all 4 quadrants, non-distended, no JVD, MUSCULOSKELETAL: Kyphosis. Left hand contracted (chronic). No CVA tenderness. UPPER EXTREMITIES: 2+ pulses, warm, well-perfused. No cyanosis. No clubbing. No peripheral edema. LOWER EXTREMITIES: 2+ pulses, warm, well-perfused. No calf tenderness. No peripheral edema. NEUROLOGICAL: No focal deficits. Cranial nerves II-XII intact. Normal speech. PSYCHIATRIC: Cooperative. Good eye contact. Appropriate mood and affect. SKIN: Resolving RUE ecchymosis extending down flank and spared in certain areas . Echymosis on flexor surface of RUE. Warm, dry, normal turgor, normal capillary refill. Ducubitus ulcer on sacrum. LABS Laboratory Results - last 24 hr 08/01/19 05:20 B-Natriuretic Peptide 566.7 H Echo from last admission: mitral valve regurg, aortic regurg. Echo done 07/07/19 : EF 55-60%, mild MR, pulm HTN, & AR HOSPITAL COURSE: Date of Admission:07/25/19 88 y/o female PMH HTN, HFpEF, depression, chronic RIGHT subdural hematoma, ETOH abuse, RIGHT carotid artery stenosis, and recent admission for acute hypoxic hypercapnic respiratory failure, admitted for recurrence of acute hypoxic hypercapnic respiratory failure. Pt brought to hospital after CONSTRUCTION [employer]IP found pt to be tachypnic and demonstrating increased work of breathing. She was placed on non-rebreather and oxygen saturation remained low. She was intubated and brought to the ICU. She is now s/p extubation, saturating well on telemetry unit on 2L NC. Possible contraction alkalosis. Per cardio she was switch lasix to spironolactone 25 PO QD - weaker diuretic and better support for diastolic dysfunction. During her stay she experienced a RIGHT sided contact dermatitis, stage 2 sacral pressure ulcer, which improved with cortisone 1% BID to area, zinc oxide for decubital ulcer, and vaseline for lips. Pt improved rapidly during this stay. She did not need bipap while on telemetry unit. Plan for rehab at [facility] should she need bipap. DC to SNF. Date of Discharge: 08/01/19 Enrrique Lin MD Minutes to complete discharge: 40 Discharge Summary Problems reviewed: Yes Reason For Visit: RESPIRATORY DISTRESS/PNEUMONIA Current Active Problems Acute respiratory failure with hypoxia and hypercarbia (Acute) Coronary artery disease (Acute) Hypercarbia (Acute) Paroxysmal atrial tachycardia (Acute) Condition: Improved - Instructions Diet, Activity, Other Instructions: YOUR VISIT You came to the hospital because you had difficulty breathing. You were admitted to the hospital for care of respiratory failure. While here you were seen by pulmonology, cardiology, and an infectious disease specialist. You can benefit from continued care in a assisted facility. You are now stable to continue care outside of the hospital. MEDICATIONS Please continue to take your medications as prescribed. *MEDICATION CHANGE* STOP TAKING LASIX Spironolactone 25 mg mg by mouth everyday Take Augmentin 500mg orally 2x per day for 3 more days. ADDITIONAL CARE Please make an appointment to see a primary care provider 1 week from today. Since you do not currently have one, you can be seen at the [facility] residents clinic located at [address] [place] [address]. Please call to make an appointment. If you would like to continue seeing Dr. Enrrique Lin, please ask for a Thursday morning appointment. Please make an appointment to see a urgent care physician in 1 week. A referral has to Dr. Beck has been provided. Please make an appointment to see a audiometric technician in 1 week. A referral has to Dr. Blevins has been provided. ADDITIONAL INFORMATION Please call 911 or come directly to the emergency department if you experience unusual headache, vision change, shortness of breath, chest pain, numbness, tingling, loss of alertness/awareness, loss of function, unusual bleeding or any alarming symptoms. Referrals: Hayden Blevins MD [Staff Physician] - 1 Week Bneny Beck MD [Staff Physician] - 1 Week Disposition: [facility]ILITY - Home Medications Comprehensive Discharge Medication List: Ambulatory Orders Sertraline HCl 50 mg PO DAILY 07/07/19 Calcium 500Mg/Vit-D 200 Units [Os-Silvio 500+D -] 1 tab PO BID 30 Days #60 tab Albuterol Sulfate Inhaler - [Ventolin HFA Inhaler -] 1 puff IH Q4H PRN #1 inhaler 07/23/19 Aspirin 81 mg PO DAILY #30 tab.chew 07/23/19 Furosemide 20 mg PO DAILY 30 Days #30 tablet 07/23/19 Hydrocortisone 1% Ointment [Hytone 1% Ointment -] 1 applic TP DAILY #1 tube LORazepam [Ativan] 0.5 mg PO BID PRN tablet MDD 1.5 07/23/19 Metoprolol Tartrate [Lopressor -] 50 mg PO BID 30 Days #60 tablet 07/23/19 Petrolatum - White [Vaseline -] 1 applic TP DAILY applic 07/23/19 Valsartan [Diovan] 40 mg PO DAILY 30 Days #30 tablet 07/23/19 Zinc Oxide 1 applic TP BID #1 tube 07/23/19 Zinc Oxide 1 applic TP DAILY #1 oint..gm. 07/23/19 This patient is new to me today: No Emergency Visit: No Critical Care patient: No - Discharge Referral Referred to [facility] Med [facility] No ATTENDING PHYSICIAN STATEMENT I saw and evaluated the patient. I reviewed the resident's note and discussed the case with the resident. I agree with the resident's findings and plan as documented. SUBJECTIVE: OBJECTIVE: ASSESSMENT AND PLAN:
--- NOTE | 2019-08-01 17:15 | PN ---
Teaching Attending Note Name of Resident: Enrrique Lin ATTENDING PHYSICIAN STATEMENT I saw and evaluated the patient. I reviewed the resident's note and discussed the case with the resident. I agree with the resident's findings and plan as documented. SUBJECTIVE: Patient is comfortable with no acute distress, no fever or chills. Patient is happy that her friend visited her from [place] that she grow up with 60 years ago. OBJECTIVE: Vital Signs Temperature 98.4 F 08/01/19 13:00 Pulse Rate 70 08/01/19 13:00 Respiratory Rate 18 08/01/19 13:00 Blood Pressure 106/42 L 08/01/19 13:00 O2 Sat by Pulse Oximetry (%) 98 08/01/19 09:00 GENERAL: The patient is awake, alert, and oriented x3, in NAD.on oxygen HEAD: Normal with no signs of trauma. EYES: PERRL, extraocular movements intact, sclera anicteric, conjunctiva clear. ENT: Ears normal, on NC now, clear without exudates, moist mucous membranes. NECK: Trachea midline, full range of motion, supple. LUNGS: Breath sounds equal, decreased BS BL , no accessory muscle use. HEART: Regular rate and rhythm, S1, S2 positive, basilio 2/6 , no rub or gallop. ABDOMEN: Soft, NT, ND, +BS, no guarding, no rebound, no hepatosplenomegaly, no masses. EXTREMITIES: 2+ pulses, warm, well-perfused, no edema. NEUROLOGICAL: Cranial nerves II through XII grossly intact. Normal speech, gait not observed. PSYCH: Normal mood, normal affect. SKIN: Warm, dry, normal turgor, no rashes or lesions noted CBCD WBC 7.7 K/mm3 (4.0-10.0) 07/31/19 06:15 RBC 4.41 M/mm3 (3.60-5.2) 07/31/19 06:15 Hgb 13.2 GM/dL (10.7-15.3) 07/31/19 06:15 Hct 40.5 % (32.4-45.2) D 07/31/19 06:15 MCV 91.8 fl (80-96) 07/31/19 06:15 MCHC 32.6 g/dl (32.0-36.0) 07/31/19 06:15 RDW 14.6 % (11.6-15.6) 07/31/19 06:15 Plt Count 258 K/MM3 (134-434) 07/31/19 06:15 MPV 10.7 fl (7.5-11.1) 07/31/19 06:15 CMP Sodium 143 mmol/L (136-145) 07/31/19 06:15 Potassium 3.9 mmol/L (3.5-5.1) 07/31/19 06:15 Chloride 104 mmol/L (98-107) 07/31/19 06:15 Carbon Dioxide 32 mmol/L (21-32) 07/31/19 06:15 Anion Gap 7 MMOL/L (8-16) L 07/31/19 06:15 BUN 21.4 mg/dL (7-18) H 07/31/19 06:15 Creatinine 0.4 mg/dL (0.55-1.3) L 07/31/19 06:15 Random Glucose 87 mg/dL (74-106) 07/31/19 06:15 Calcium 9.3 mg/dL (8.5-10.1) 07/31/19 06:15 Total Bilirubin 0.8 mg/dL (0.2-1) 07/31/19 06:15 AST 20 U/L (15-37) 07/31/19 06:15 ALT 36 U/L (13-61) 07/31/19 06:15 Alkaline Phosphatase 85 U/L (45-117) 07/31/19 06:15 Total Protein 6.1 g/dl (6.4-8.2) L 07/31/19 06:15 Albumin 3.2 g/dl (3.4-5.0) L 07/31/19 06:15 CARDIAC ENZYMES Troponin I 0.04 ng/ml (0.00-0.05) 07/25/19 13:40 Home Medications Medication Instructions Recorded Sertraline HCl 50 mg PO DAILY 07/07/19 Calcium 500Mg/Vit-D 200 Units 1 tab PO BID 30 Days #60 tab 07/08/19 [Os-Silvio 500+D -] Albuterol Sulfate Inhaler - 1 puff IH Q4H PRN #1 inhaler 07/23/19 [Ventolin HFA Inhaler -] Aspirin 81 mg PO DAILY #30 tab.chew 07/23/19 Furosemide 20 mg PO DAILY 30 Days #30 tablet 07/23/19 Hydrocortisone 1% Ointment [Hytone 1 applic TP DAILY #1 tube 07/23/19 1% Ointment -] LORazepam [Ativan] 0.5 mg PO BID PRN tablet MDD 1.5 07/23/19 Metoprolol Tartrate [Lopressor -] 50 mg PO BID 30 Days #60 tablet 07/23/19 Petrolatum - White [Vaseline -] 1 applic TP DAILY applic 07/23/19 Valsartan [Diovan] 40 mg PO DAILY 30 Days #30 tablet 07/23/19 Zinc Oxide 1 applic TP BID #1 tube 07/23/19 Zinc Oxide 1 applic TP DAILY #1 oint..gm. 07/23/19 ASSESSMENT AND PLAN: Patient is an 88yof with PMhx of diastolic dysfunction , HTN, depression, chronic R subdural hematoma ,ETOH abuse, R carotid artery stenosis, PNA, UTI, NSVT, with a recent admission for Acute resp failure due to PNA, Acute D CHF, NSTEMI and developed R iatrogenic pneumothorax, who was discharged home and returned 2 days later due to SOB and tachypnia. SHe was found to have acute hypoxic , hypercapnic resp failure and was intubated. Patient is stable to go to rehab. today. #Acute hypoxic, hypercapnic respiratory failure. s/p extubation , s/p high flow oxygen, saturating 97% on 2l oxygen. as per ID to continue with Augmentin 500mg x 3 more days, 3/3 days now, s/p IV zosyn. no growth. cx is negative # s/p Hypotension : normotensive now, continue BP meds. #Hypokalemia: normal now, repleted. # R flank contact dermatitis. cont HC #fungal infection on genital area: Nystatin and zinc oxide # H/o recent NSTEMI: cont asa , BB DVT px: heparin sq dc patient to rehab.
[2019-08-02 13:40] VITALS: BMI 18.7
== END 2019-08-01 16:58 | DRG 871 ==
LOC: JER 23:56 → JERBED 07-25 02:04 → JICU 07-25 05:37 → J4W 07-28 13:58
PROVIDERS: ADMIT Internal Medicine; ATTEND Internal Medicine
PROC: 5A1945Z Respiratory Ventilation, 24-96 Consecutive Hours (ICD-10-PCS; principal; 2019-07-25)
PROC: 0BH17EZ Insertion of Endotracheal Airway into Trachea, Via Natural or Artificial Opening (ICD-10-PCS; 2019-07-25)
PROC: 05HM33Z Insertion of Infusion Device into Right Internal Jugular Vein, Percutaneous Approach (ICD-10-PCS; 2019-07-25)
DX: A41.9 Sepsis, unspecified organism (principal); J96.01 Acute respiratory failure with hypoxia; J96.02 Acute respiratory failure with hypercapnia; I50.33 Acute on chronic diastolic (congestive) heart failure; J18.9 Pneumonia, unspecified organism; E87.2 Acidosis; N17.9 Acute kidney failure, unspecified; E87.1 Hypo-osmolality and hyponatremia; I24.8 Other forms of acute ischemic heart disease; I47.1 Supraventricular tachycardia; I11.0 Hypertensive heart disease with heart failure; I95.9 Hypotension, unspecified; E87.6 Hypokalemia; I25.10 Atherosclerotic heart disease of native coronary artery without angina pectoris; L89.152 Pressure ulcer of sacral region, stage 2; L25.9 Unspecified contact dermatitis, unspecified cause; I27.20 Pulmonary hypertension, unspecified; D72.829 Elevated white blood cell count, unspecified; F32.9 Major depressive disorder, single episode, unspecified; R65.20 Severe sepsis without septic shock
CPT/HCPCS: 36415; 36600; 71045-TC-FY; 80053; 81003; 82375; 82803; 83050; 83605; 83735; 83880; 84100; 84132; 84484; 85025; 85610; 85730; 87040; 87070; 87086; 87205; 87899; 93005; 93010; 93970-TC; 94002; 94640; 94761; 97116-GP; 97161-GP; 99285-25; J0131; J1644; J7030

== ENCOUNTER 2019-08-30 12:08 | Emergency (ER) | payer OTHER, BC ==
[2019-08-30 13:08] VITALS: TEMP 97.8; BMI 17.4
[2019-08-30] MEDS ORDERED: METHOCARBAMOL 500 MG TABLET PO ONE (15:20)
[2019-08-30] MEDS ORDERED: METHOCARBAMOL 500 MG TABLET ONE (15:50)
--- NOTE | 2019-08-30 16:13 | PDOC ---
History of Present Illness - General Chief Complaint: Pain, Acute Stated Complaint: SENT BY PCP Time Seen by Provider: 08/30/19 14:54 History Source: Patient Exam Limitations: Clinical Condition - History of Present Illness Initial Comments: 08/30/19 16:07 Patient with past medical history of multiple comorbidities, CHF, pleural effusion, kyphosis, multiple falls in the past few weeks brought in by son who is a chiropractor with complaint of flexion of the neck which patient either unable to lift up neck or will not straighten neck due to pain. Patient reported mild pain to posterior lower neck which is worse when she is trying to lift at the neck. Son reports patient has been severely kyphotic for the past 2 days which is unusual for patient. Patient was seen by patient account liaison today for CHF and peripheral edema and being treated with Lasix for fluid overload. Patient reported vomiting twice yesterday. Denies nausea now, dizziness, blurry vision or change in vision. Son reported patient has been sleeping in a recliner chair in the past few weeks due to history of CHF and feels uncomfortable sleeping flat. Denies any other symptoms Is this a multiple visit Asthma Patient?: No Timing/Duration: other (2 days) Past History - Past Medical History Allergies/Adverse Reactions: Allergies Allergy/AdvReac Type Severity Reaction Status Date / Time No Known Allergies Allergy Verified 08/30/19 13:04 Home Medications: Ambulatory Orders Sertraline HCl 50 mg PO DAILY 07/07/19 Calcium 500Mg/Vit-D 200 Units [Os-Silvio 500+D -] 1 tab PO BID 30 Days #60 tab Albuterol Sulfate Inhaler - [Ventolin HFA Inhaler -] 1 puff IH Q4H PRN #1 inhaler 07/23/19 Aspirin 81 mg PO DAILY #30 tab.chew 07/23/19 Furosemide 20 mg PO DAILY 30 Days #30 tablet 07/23/19 Hydrocortisone 1% Ointment [Hytone 1% Ointment -] 1 applic TP DAILY #1 tube LORazepam [Ativan] 0.5 mg PO BID PRN tablet MDD 1.5 07/23/19 Metoprolol Tartrate [Lopressor -] 50 mg PO BID 30 Days #60 tablet 07/23/19 Valsartan [Diovan] 40 mg PO DAILY 30 Days #30 tablet 07/23/19 Zinc Oxide 1 applic TP DAILY #1 oint..gm. 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.) COPD: No CHF: Yes DVT: No HTN: Yes - Surgical History Appendectomy: Yes - Immunization History Immunization Up to Date: Yes - Psycho Social/Smoking Cessation Hx Smoking Status: No Smoking History: Unknown if ever smoked Have you smoked in the past 12 months: No Number of Cigarettes Smoked Daily: 0 Hx Alcohol Use: No Drug/Substance Use Hx: No Substance Use Type: None Review of Systems - Review of Systems Able to Perform ROS?: Yes Is the patient limited Faroese proficient: No Constitutional: No: Chills, Fever, Malaise HEENTM: No: Symptoms Reported, See HPI, Eye Pain, Blurred Vision, Tearing, Recent change in vision, Double Vision, Cataracts, Ear Pain, Ocular Prothesis, Ear Discharge, Nose Pain, Nose Congestion, Tinnitus, Nose Bleeding, Hearing Loss , Throat Pain, Throat Swelling, Mouth Pain, Dental Problems, Difficulty Swallowing, Mouth Swelling, Other Respiratory: No: Symptoms reported, See HPI, Cough, Orthopnea, Shortness of Breath, SOB with Exertion, SOB at Rest, Stridor, Wheezing, Productive cough, Hemoptysis, Other Cardiac (ROS): No: Symptoms Reported, See HPI, Chest Pain, Edema, Irregular Heart Rate, Lightheadedness, Palpitations, Syncope, Chest Tightness, Other ABD/GI: Yes: Symptoms Reported, See HPI, Nausea, Vomiting (resolved) Musculoskeletal: Yes: Symptoms Reported, See HPI, Neck Pain, Joint Stiffness ( neck) Neurological: No: Symptoms reported, Numbness, Paresthesia, Tingling, Dizziness All Other Systems: Reviewed and Negative *Physical Exam - Vital Signs Last Vital Signs Temp Pulse Resp BP Pulse Ox 97.8 F 58 L 20 123/51 L 92 L 08/30/19 13:06 08/30/19 13:06 08/30/19 13:06 08/30/19 13:06 08/30/19 13:06 - Physical Exam 08/30/19 16:11 GENERAL: Well developed, well nourished. Awake and alert. No acute distress. PULMONARY: No evidence of respiratory distress. MUSCULOSKELETAL : Patient in kyphotic position with hyperflexion of cervical spine. Mild tenderness over posterior paravertebral muscle of cervical spine of C5-C7 on bilateral sides. No bony deformities SKIN: Warm and dry. Normal capillary refill. No rashes. NEUROLOGICAL: Alert, awake, appropriate. No motor deficits in the lower extremities. PSYCHIATRIC: Cooperative. Good eye contact. Appropriate mood and affect. General Appearance: Yes: Nourished, Appropriately Dressed. No: Apparent Distress ED Treatment Course - LABORATORY CBC & Chemistry Diagram: 08/30/19 17:18 08/30/19 17:18 - RADIOLOGY Radiology Studies Ordered: Category Date Time Status CERVICAL SPINE CT W/O CONTR [CT] Stat CT Scan 08/30/19 15:11 Ordered Medical Decision Making - Medical Decision Making 08/30/19 16:10 Patient with past medical history of multiple comorbidities, CHF, pleural effusion, kyphosis, multiple falls in the past few weeks brought in by son who is a chiropractor with complaint of flexion of the neck which patient either unable to lift up neck or will not straighten neck due to pain. Patient reported mild pain to posterior lower neck which is worse when she is trying to lift at the neck. Son reports patient has been severely kyphotic for the past 2 days which is unusual for patient. Patient was seen by patient account liaison today for CHF and peripheral edema and being treated with Lasix for fluid overload. Patient reported vomiting twice yesterday. Denies nausea now, dizziness, blurry vision or change in vision. Son reported patient has been sleeping in a recliner chair in the past few weeks due to history of CHF and feels uncomfortable sleeping flat. Denies any other symptoms Exam significant for patient in hyperflexion and kyphotic with patient unable to straightening cervical spine. Mild tenderness to posterior C-spine of C2- C7. No visible deformity. Symptoms likely neck spasm from sleeping on couch causing torticollis. Will do CT of cervical spine to rule out acute abnormality. Robaxin 500 mg p.o. ordered for spasm. Reassess after CT 08/30/19 19:23 Ct of cervical spine shows no acute fracture or abnormality. CBC and CMP wnl. Patient started to feel better with neck stiffness now with Robaxin. Patient stable for discharge to son with strict follow-up instruction on Tylenol prn for pain and Robaxin for spasm with PCP f/u Discharge - Discharge Information Problems reviewed: Yes Clinical Impression/Diagnosis: Acute torticollis Condition: Improved Disposition: HOME - Admission No - Additional Discharge Information Prescriptions: Methocarbamol [Robaxin -] 500 mg PO BID PRN #14 tablet PRN Reason: neck spasm - Follow up/Referral Referrals: Chloé Sherwood [Primary Care Provider] - - Patient Discharge Instructions Additional Instructions: Your labs shows no acute abnormality. Your neck CAT scan shows no fracture. Take prescribed medication as needed for neck spasm as discuss and Take Tylenol as needed for pain. Come back to ED right away if worsening symptoms including worsening neck pain,weakness, dizziness, shortness of breathe otherwise follow- up with your PCP - Post Discharge Activity
[2019-08-30 17:33] LABS: BASO % 0.9 % (0-2.0); EOS % 0.2 % (0-4.5); HEMATOCRIT 44.9 % (32.4-45.2); HEMOGLOBIN 15.1 GM/dL (10.7-15.3); LYMPH % 14.8 % (8-40); MCH 30.2 pg (25.7-33.7); MCHC 33.5 g/dl (32.0-36.0); MEAN PLT VOLUME 8.8 fl (7.5-11.1); MONO % 10.4 % (3.8-10.2); NEUT % 73.7 % (42.8-82.8); PLATELET COUNT 295 K/MM3 (134-434); RBC 4.99 M/mm3 (3.60-5.2); WHITE BLOOD COUNT 10.3 K/mm3 (4.0-10.0)
[2019-08-30 18:05] LABS: EPI CELLS 2.4 /HPF (0-5/HPF); HYALINE CASTS 3 /lpf (0-8); PH,URINE 6.5 (5.0-8.0); URINE APPEARANCE CLOUDY; URINE BACTERIA 42.3 /hpf (NEGATIVE); URINE BILIRUBIN NEGATIVE (NEGATIVE); URINE COLOR YELLOW; URINE GLUCOSE (UA) NEGATIVE (NEGATIVE); URINE KETONE NEGATIVE (NEGATIVE); URINE LEUK ESTERASE NEGATIVE (NEGATIVE); URINE NITRITE NEGATIVE (NEGATIVE); URINE PROTEIN 1+ (NEGATIVE); URINE RBC 5 /hpf (0-4); URINE WBC 5 /hpf (0-5)
[2019-08-30 18:42] LABS: ALBUMIN 3.7 g/dl (3.4-5.0); BILIRUBIN,TOTAL 0.8 mg/dL (0.2-1); BLOOD UREA NITROGEN 11.7 mg/dL (7-18); CALCIUM 9.2 mg/dL (8.5-10.1); CREATININE 0.4 mg/dL (0.55-1.3); POTASSIUM 3.2 mmol/L (3.5-5.1); TOT PROT 6.8 g/dl (6.4-8.2)
[2019-08-30 18:43] LABS: URINE CRYSTALS NONE SEEN /hpf
[2019-08-30 19:20] VITALS: BP 144/49; PULSE 72
== END 2019-08-30 19:53 | disposition home or self-care (01) ==
LOC: JER 12:08
DX: M43.6 Torticollis (principal); M40.292 Other kyphosis, cervical region; I11.0 Hypertensive heart disease with heart failure; I50.9 Heart failure, unspecified; Z91.81 History of falling; Z87.09 Personal history of other diseases of the respiratory system
CPT/HCPCS: 36415; 72125-TC; 80053; 81003; 85025; 87086; 99283-25